=== PATIENT | female | born 1935 | race Caucasian/White ===

== ENCOUNTER 2016-08-21 14:13 | Outpatient (RCR) | payer MEDICARE ==
[~2016-08-21 14:13] MED LIST: ACET-789 PO; ARMO50TA3 PO; ASPI-875 PO; BETA1TAB PO; BPR100T PO; CEPH500C PO; CHOL2000 PO; CLCX100C PO; CLCX200C PO; DOCU100T7 PO; ESCI20TA2 PO; HYDR-3454 PO; LEVO200T6 PO; LVT.1T PO; MULT-608 PO; MULT-974 PO; NFAMINITAB PO; OXYC10TA85 PO; SIMV20TA3 PO
--- OUTSIDE RECORDS SUMMARY | 2016-08-21 14:16 | XMS REPORT | Continuity of Care Document ---
Author Author [facility] Organization [facility] Address Unknown Phone Unavailable Care Team Providers Care Director Operating Name Role Phone SHAUN NICOLAS MD PCP Insurance Providers Payer Name Policy Number Subscriber Name Relationship Wps Medicare [id number] Anat Boogie 18 Self / Same As Patient Blue Cross [facility] Supp [id number] Anat Boogie 18 Self / Same As Patient Advance Directives Directive Response Recorded Date/Time Advance Directives No 06/02/13 9:14am Health Care Power of Construction Controller No 06/02/13 9:14am Organ Donor Yes 06/02/13 9:14am Problems No known problems or medical conditions. Medications Medication Dose Route Sig Days/Qty Instructions Order Date Discontinued Date Status Bupropion HCl 100 Mg PO DAILY 12/20/09 Active Simvastatin 20 Mg PO BEDTIME 12/20/09 05/10/13 Discontinued Levothyroxine Sodium (Levothroid) 2 Each PO DAILY 12/20/09 05/19/13 Discontinued Multivitamins 1 Tab PO DAILY 12/20/09 05/25/13 Discontinued Cholecalciferol 2,000 Unit PO BEDTIME 12/20/09 Active Beta-Carotene(A) W-C & E/Zn/Cu 1 Tab PO DAILY 12/20/09 06/02/13 Discontinued Armodafinil 50 Mg PO DAILY 01/22/11 05/19/13 Discontinued Escitalopram Oxalate 1 Each PO BEDTIME 01/22/11 05/19/13 Discontinued Docusate Sodium 100 Mg PO BEDTIME 06/21/11 Active Acetaminophen With Codeine 1 - 2 Each PO EVERY 4HRS PRN 01/23/11 Discontinued Levothyroxine Sodium 200 Mcg PO DAILY 05/19/13 Active Celecoxib 100 Mg PO DAILY 05/19/13 05/19/13 Discontinued Cephalexin Monohydrate (Keflex) 500 Mg PO THREE TIMES A DAY #42 CAPSULES FILLED 05-14-13 05/19/13 Active Aspirin 81 Mg PO BEDTIME 05/19/13 05/25/13 Discontinued Celecoxib 200 Mg PO DAILY 05/19/13 05/25/13 Discontinued Social History Social History Problem Response Recorded Date/Time Alcohol Use Rarely Uses 05/18/2013 4:45pm Recreational Drug Use No 05/18/2013 4:45pm Sexually Transmitted Disease No 05/10/2013 4:59pm Hospital Discharge Instructions No hospital discharge instructions. Plan of Care No plan of care. Functional Status No functional status results. Allergies, Adverse Reactions, Alerts Allergen Type Severity Reaction Status Last Updated Sulfa (Sulfonamide Antibiotics) ([id number]) Allergy Active 05/18/13 Immunizations Name Given Type Date of Pneumonia Vaccine 05/04/13 Historical Date of Influenza Vaccine 05/04/13 Historical Tetanus Booster (TDap) Unknown Historical Vital Signs No known vital signs results. Results Test Source Date Result Interp. Ref. Range Comments Absolute Reticulocyte Count April 26, 2013 10:23am 21 10^3/uL L 22- 82 Activated Partial Thromboplast Time June 02, 2013 8:30am 30 SEC N 24- 35 Comments to Grease Refiner Operator: DS 4 Alanine Aminotransferase (ALT/SGPT) January 10, 2014 11:22am 34 U/L N 30- 65 Albumin January 10, 2014 11:22am 3.8 G/DL N 3.4-5.0 Alkaline Phosphatase January 10, 2014 11:22am 89 U/L N 50-136 Anisocytosis June 24, 2006 2:30pm Slight - MANUAL DIFF PLEASE CONSULT DR GEE TO READ Anti-Nuclear Antibody Screen June 03, 2006 10:35am <1:80 - INTERPRETIVE DATA NORMAL RANGE FOR CHILDREN AGE 0 - 12 <1:20 NORMAL RANGE FOR ADULTS AGE 13 - 150 <1:80 THE PRESENCE OF MONSTER IS KNOWN TO BE ASSOCIATED WITH NUMEROUS DISEASE STATES WHICH INCLUDE SLE, MIXED CONNECTIVE TISSUE DISEASE (MCTD), RHEUMATOID ARTHRITIS, SJOGREN'S SYNDROME AND OTHER RHEUMATOID DISEASES. LOW TITERS OF MONSTER (<1:160) HAVE BEEN REPORTED IN THE ELDERLY AND TRANSIENTLY DURING VIRAL INFECTIONS IN OTHERWISE HEALTHY INDIVIDUALS. THE ABSENCE OF MONSTER IS STRONG EVIDENCE AGAINST UNTREATED SLE. 10/11/94 Aspartate Amino Transf (AST/SGOT) January 10, 2014 11:22am 25 U/L N 15-37 BUN/Creatinine Ratio January 10, 2014 11:22am 19 - Band Neutrophils January 27, 2013 11:03am 0 % - BMBX Basophils # (Auto) January 10, 2014 11:22am 0.0 10^3/uL N 0.0-0.1 Basophils % (Manual) January 27, 2013 11:03am 1 % - BMBX Basophils (%) (Auto) January 10, 2014 11:22am 0 % N 0-10 Blood Urea Nitrogen January 10, 2014 11:22am 13 MG/DL N 7-18 C-Reactive Protein May 18, 2013 5:30pm 1.3 MG/DL H 0.2-0.9 CA 27.29 January 10, 2014 11:22am 34.9 U/ML - Calcium Level January 10, 2014 11:22am 8.9 MG/DL N 8.5-10.1 Carbon Dioxide Level January 10, 2014 11:22am 29 MMOL/L N 21-32 Chloride Level January 10, 2014 11:22am 100 MMOL/L L 101-110 Cholesterol Level January 12, 2007 11:47am 144 MG/DL N -[address] ORDER PER DR RIZO CALLED TO CHAN AT [[id number]]. RESULTS READ BACK: YES. Creatinine January 10, 2014 11:22am 0.7 MG/DL N 0.6-1.3 Direct Bilirubin June 20, 2008 1:52pm 0.1 MG/DL N 0.0-0.30 Eosinophils # (Auto) January 10, 2014 11:22am 0.0 10^3/uL N 0.0-0.3 Eosinophils % (Manual) January 27, 2013 11:03am 0 % - BMBX Eosinophils (%) (Auto) January 10, 2014 11:22am 1 % N 0-10 Erythrocyte Sedimentation Rate June 03, 2006 10:35am 3 MM/HR N 0-30 Ferritin May 20, 2013 5:50am 52 NG/ML - Comments to Grease Refiner Operator : IRON STUDY Glucose Level January 10, 2014 11:22am 193 MG/DL H 74-106 HDL Cholesterol January 12, 2007 11:47am 30 MG/DL L 35-[address] ORDER PER DR RIZO CALLED TO CHAN AT [[id number]]. RESULTS READ BACK: YES. Hematocrit January 10, 2014 11:22am 41 % N 35-52 Hemoglobin January 10, 2014 11:22am 13.4 G/DL N 11.5-16.0 Hemoglobin A1c January 12, 2007 11:47am 7.1 h % - MANUAL DIFF PER DR ORDER PER DR NICOLAS Indirect Bilirubin January 12, 2007 11:47am 0.5 MG/DL - MANUAL DIFF PER DR ORDER PER DR RIZO CALLED TO CHAN AT [[id number]]. RESULTS READ BACK: YES. Iron Level May 20, 2013 5:50am 57 UG/DL - Comments to Grease Refiner Operator: IRON STUDY LDL Cholesterol January 12, 2007 11:47am 87 MG/DL N 0-[address] ORDER PER DR RIZO CALLED TO CHAN AT [[id number]]. RESULTS READ BACK: YES. Lymphocytes # (Auto) January 10, 2014 11:22am 0.9 X 10^3 L 1.0-4.0 Lymphocytes % (Manual) January 27, 2013 11:03am 37 % - BMBX Lymphocytes (%) (Auto) January 10, 2014 11:22am 31 % N 12-44 Mean Corpuscular Hemoglobin January 10, 2014 11:22am 30 PG N 25-34 Mean Corpuscular Hemoglobin Concent January 10, 2014 11:22am 33 G/DL N 32- 36 Mean Corpuscular Volume January 10, 2014 11:22am 90 FL N 80-99 Mean Platelet Volume January 10, 2014 11:22am 10.0 FL N 7.4-10.4 Monocytes # (Auto) January 10, 2014 11:22am 0.2 X 10^3 N 0.0-1.0 Monocytes % (Manual) January 27, 2013 11:03am 11 % - BMBX Monocytes (%) (Auto) January 10, 2014 11:22am 9 % N 0-12 Neutrophils # (Auto) January 10, 2014 11:22am 1.7 X 10^3 L 1.8-7.8 Neutrophils % (Manual) January 27, 2013 11:03am 51 % - BMBX Neutrophils (%) (Auto) January 10, 2014 11:22am 60 % N 42-75 Percent Reticulocyte Count April 26, 2013 10:23am 0.50 % N 0.50- 2.40 Platelet Count January 10, 2014 11:22am 54 10^3/uL L 130-400 Potassium Level January 10, 2014 11:22am 4.2 MMOL/L N 3.6-5.0 Prothrombin Time June 02, 2013 8:30am 13.6 SEC N 12.2-14.7 Comments to Grease Refiner Operator: DS 4 RBC Morphology Bizarre Forms January 12, 2007 11:47am Normal - MANUAL DIFF PER DR ORDER PER DR NICOLAS Reactive Lymphocytes January 12, 2007 11:47am 9 % - MANUAL DIFF PER DR ORDER PER DR NICOLAS Red Blood Count January 10, 2014 11:22am 4.52 10^6/uL N 4.35-5.85 Red Cell Distribution Width January 10, 2014 11:22am 14.5 % N 10.0-14.5 Rheumatoid Factor June 03, 2006 10:35am Negative - Sodium Level January 10, 2014 11:22am 134 MMOL/L L 135-145 TSH [place] Testing June 03, 2006 10:35am 0.77 UIU/ML N 0.34-5.60 Thyroid Stimulating Hormone (TSH) March 26, 2011 2:24pm 0.05 UIU/ML L 0.34-5.60 Total Bilirubin January 10, 2014 11:22am 1.0 MG/DL N 0.0-1.0 Total Iron Binding Capacity May 20, 2013 5:50am 304 UG/DL - Comments to Grease Refiner Operator: IRON STUDY Total Protein January 10, 2014 11:22am 6.7 G/DL N 6.4-8.2 Transferrin % Saturation May 20, 2013 5:50am 19 % - Comments to Grease Refiner Operator: IRON STUDY Triglycerides Level January 12, 2007 11:47am 135 MG/DL N 30.0-150.[address] ORDER PER DR RIZO CALLED TO CHAN AT [[id number]]. RESULTS READ BACK: YES. Uric Acid June 03, 2006 10:35am 4.3 MG/DL N 2.6-7.2 VLDL Cholesterol January 12, 2007 11:47am 27 MG/DL N 5-[address] ORDER PER DR RIZO CALLED TO CHAN AT [[id number]]. RESULTS READ BACK: YES. Vitamin B12 Level June 03, 2006 10:35am 715 PG/ML - White Blood Count January 10, 2014 11:22am 2.8 10^3/uL L 4.3-11.0 Glucometer May 25, 2013 5:41am 147 MG/DL H 70-110 Estimat Glomerular Filtration Rate January 10, 2014 11:22am > 60 - GFR INTERPRETIVE DATA UNITS FOR ESTIMATED GFR (eGFR): mL/min/1.73 M2 REFERENCE RANGE FOR ESTIMATED GFR (eGFR) eGFR NORMAL eGFR >60 MODERATELY DECREASED eGFR 30-59 SEVERLY DECREASED eGFR 15-29 KIDNEY FAILURE <15 (OR DIALYSIS) Blood Morphology Comment January 27, 2013 11:03am NORMAL - BMBX INR Comment June 02, 2013 8:30am 1.1 N 0.8-1.4 INTERPRETIVE DATASUGGESTED THERAPEUTIC RANGE FOR INR'S: VENOUS THROMBOSIS, PULMONARY EMBOLISM, OR PREVENTION OF SYSTEMIC EMBOLISM (EG. IN ATRIAL FIBRILLATION): 2.0 - 3.0 MECHANICAL PROSTHETIC HEART VALVES: 2.5 - 3.5* *NOTE: INR'S UP TO 4.5 MAY BE NECESSARY IN SELECTED GROUPS OF HIGH RISK PATIENTS. [employer] CONSENSUS CONFERENCE ON ANTITHROMBOTIC THERAPY (2000). MRSA Screen Nasal January 22, 2011 11:27am MRSA not isolated Procedures No known history of procedures. Encounters Encounter Location Date/Time Registered Clinic [facility] 05/16/14 8:00pm
[2016-08-21 14:32] LABS: BASOPHILS % (AUTO) 0 % (0-10); EOSINOPHILS % (AUTO) 1 % (0-10); LYMPHOCYTES # (AUTO) 0.7 X 10^3 (1.0-4.0); LYMPHOCYTES % (AUTO) 25 % (12-44); MEAN CORPUSCULAR HEMOGLOBIN 31 PG (25-34); MEAN CORPUSCULAR HGB CONC 33 G/DL (32-36); MEAN CORPUSCULAR VOLUME 94 FL (80-99); MEAN PLATELET VOLUME 9.8 FL (7.4-10.4); MONOCYTES # (AUTO) 0.3 X 10^3 (0.0-1.0); MONOCYTES % (AUTO) 11 % (0-12); NEUTROPHILS # (AUTO) 1.6 X 10^3 (1.8-7.8); NEUTROPHILS % (AUTO) 63 % (42-75); PLATELET COUNT 53 10^3/uL (130-400); RED BLOOD COUNT 4.25 10^6/uL (4.35-5.85); RED CELL DISTRIBUTION WIDTH 14.5 % (10.0-14.5); WHITE BLOOD COUNT 2.6 10^3/uL (4.3-11.0)
[2016-08-21 14:59] LABS: ALANINE AMINOTRANSFERASE 16 U/L (0-55); ALBUMIN 4.1 G/DL (3.2-4.5); ANION GAP 10 MMOL/L (5-14); ASPARTATE AMINO TRANSFERASE 29 U/L (5-34); BILIRUBIN,TOTAL 1.2 MG/DL (0.1-1.0); BLOOD UREA NITROGEN 11 MG/DL (7-18); BUN/CREATININE RATIO 14; CALCIUM 9.2 MG/DL (8.5-10.1); CARBON DIOXIDE 28 MMOL/L (21-32); CHLORIDE 100 MMOL/L (98-107); CREATININE SERUM 0.76 MG/DL (0.60-1.30); GFR ESTIMATED > 60; GLUCOSE 253 MG/DL (70-105); SODIUM 138 MMOL/L (135-145); TOTAL PROTEIN 6.2 G/DL (6.4-8.2)
== END 2016-11-19 | disposition home or self-care (01) ==
LOC: ONC 14:13
PROVIDERS: ATTEND Internal Medicine Hematology & Oncology
DX: C44.42 Squamous cell carcinoma of skin of scalp and neck (principal); Z85.3 Personal history of malignant neoplasm of breast; D50.9 Iron deficiency anemia, unspecified; K76.6 Portal hypertension; G43.909 Migraine, unspecified, not intractable, without status migrainosus; E03.9 Hypothyroidism, unspecified; F32.9 Major depressive disorder, single episode, unspecified; D69.6 Thrombocytopenia, unspecified; G47.30 Sleep apnea, unspecified; R16.1 Splenomegaly, not elsewhere classified; E66.9 Obesity, unspecified; Z90.10 Acquired absence of unspecified breast and nipple; Z92.21 Personal history of antineoplastic chemotherapy
CPT/HCPCS: 36415; 80053; 82728; 83540; 85025; 86300; 99213

== ENCOUNTER 2016-10-03 13:11 | Outpatient (RCR) | payer MEDICARE ==
--- OUTSIDE RECORDS SUMMARY | 2016-09-03 14:15 | XMS REPORT | Continuity of Care Document ---
Author Author [facility] Organization [facility] Address Unknown Phone Unavailable Care Team Providers Care Athletic Equipment Manager Name Role Phone SHAUN NICOLAS MD PCP Insurance Providers Payer Name Policy Number Subscriber Name Relationship Wps Medicare [id number] Anat Boogie 18 Self / Same As Patient Blue Cross [facility] Supp [id number] Anat Boogie 18 Self / Same As Patient Advance Directives Directive Response Recorded Date/Time Advance Directives No 06/02/13 9:14am Health Care Power of Stringer Up Soldering Machine No 06/02/13 9:14am Organ Donor Yes 06/02/13 [...] Reaction Status Last Updated Sulfa (Sulfonamide Antibiotics) ([id number]) Allergy Active 05/18/13 Immunizations Name Given Type [...] 30 SEC N 24- 35 Comments to Cook Supervisor: DS 4 Alanine Aminotransferase (ALT/SGPT) January 10, [...] 2013 5:50am 52 NG/ML - Comments to Cook Supervisor : IRON STUDY Glucose Level January 10, [...] 2013 5:50am 57 UG/DL - Comments to Cook Supervisor: IRON STUDY LDL Cholesterol January 12, 2007 [...] 8:30am 13.6 SEC N 12.2-14.7 Comments to Cook Supervisor: DS 4 RBC Morphology Bizarre Forms January [...] 2014 11:22am 134 MMOL/L L 135-145 TSH [place] Testing June 03, 2006 10:35am 0.77 UIU/ML N 0.34-5.60 Thyroid Stimulating Hormone (TSH) March 26, 2011 2:24pm 0.05 UIU/ML L 0.34-5.60 Total Bilirubin January 10, 2014 11:22am 1.0 MG/DL N 0.0-1.0 Total Iron Binding Capacity May 20, 2013 5:50am 304 UG/DL - Comments to Cook Supervisor: IRON STUDY Total Protein January 10, 2014 11:22am 6.7 G/DL N 6.4-8.2 Transferrin % Saturation May 20, 2013 5:50am 19 % - Comments to Cook Supervisor: IRON STUDY Triglycerides Level January 12, 2007 [...] SELECTED GROUPS OF HIGH RISK PATIENTS. [employer] [employer] CONSENSUS CONFERENCE ON ANTITHROMBOTIC THERAPY (2000). MRSA Screen Nasal January 22, 2011 11:27am MRSA not isolated Procedures No known history of procedures. Encounters Encounter Location Date/Time Registered Clinic [facility] 05/16/14 8:00pm
== END 2016-10-21 10:50 | disposition home or self-care (01) ==
PROVIDERS: ATTEND Nurse Practitioner
DX: M17.12 Unilateral primary osteoarthritis, left knee (principal)

== ENCOUNTER 2017-01-15 13:49 | Outpatient (RCR) | payer MEDICARE ==
[2017-01-15 14:14] LABS: BASOPHILS % (AUTO) 0 % (0-10); EOSINOPHILS % (AUTO) 1 % (0-10); LYMPHOCYTES # (AUTO) 0.7 X 10^3 (1.0-4.0); LYMPHOCYTES % (AUTO) 25 % (12-44); MEAN CORPUSCULAR HEMOGLOBIN 30 PG (25-34); MEAN CORPUSCULAR HGB CONC 33 G/DL (32-36); MEAN CORPUSCULAR VOLUME 94 FL (80-99); MEAN PLATELET VOLUME 10.1 FL (7.4-10.4); MONOCYTES # (AUTO) 0.3 X 10^3 (0.0-1.0); MONOCYTES % (AUTO) 10 % (0-12); NEUTROPHILS # (AUTO) 1.6 X 10^3 (1.8-7.8); NEUTROPHILS % (AUTO) 64 % (42-75); PLATELET COUNT 51 10^3/uL (130-400); RED BLOOD COUNT 4.27 10^6/uL (4.35-5.85); RED CELL DISTRIBUTION WIDTH 14.4 % (10.0-14.5); WHITE BLOOD COUNT 2.6 10^3/uL (4.3-11.0)
[2017-01-15 14:34] LABS: ALANINE AMINOTRANSFERASE 16 U/L (0-55); ANION GAP 11 MMOL/L (5-14); ASPARTATE AMINO TRANSFERASE 31 U/L (5-34); BILIRUBIN,TOTAL 1.4 MG/DL (0.1-1.0); BLOOD UREA NITROGEN 11 MG/DL (7-18); BUN/CREATININE RATIO 14 (0-20); CALCIUM 9.8 MG/DL (8.5-10.1); CARBON DIOXIDE 27 MMOL/L (21-32); CHLORIDE 99 MMOL/L (98-107); CREATININE SERUM 0.77 MG/DL (0.60-1.30); GFR ESTIMATED > 60; GLUCOSE 259 MG/DL (70-105); HEMOLYSIS 8 (0-29); LIPEMIA -3 (0-49); POTASSIUM 4.3 MMOL/L (3.6-5.0); SODIUM 137 MMOL/L (135-145); TOTAL PROTEIN 6.5 GM/DL (6.4-8.2)
== END 2017-04-15 | disposition home or self-care (01) ==
LOC: ONC 13:49
PROVIDERS: ATTEND Internal Medicine Hematology & Oncology
DX: C44.42 Squamous cell carcinoma of skin of scalp and neck (principal); Z85.3 Personal history of malignant neoplasm of breast; D50.9 Iron deficiency anemia, unspecified; K76.6 Portal hypertension; G43.909 Migraine, unspecified, not intractable, without status migrainosus; E03.9 Hypothyroidism, unspecified; F32.9 Major depressive disorder, single episode, unspecified; D69.6 Thrombocytopenia, unspecified; G47.30 Sleep apnea, unspecified; R16.1 Splenomegaly, not elsewhere classified; E66.9 Obesity, unspecified; Z90.10 Acquired absence of unspecified breast and nipple; Z92.21 Personal history of antineoplastic chemotherapy
CPT/HCPCS: 36415; 80053; 85025; 86300; 99213

== ENCOUNTER → 2017-01-28 | Outpatient (CLI) | payer MEDICARE ==
--- NOTE | 2017-01-29 19:26 | Diagnostic Imaging Report ---
Right breast diagnostic mammogram. INDICATION: Screening. The patient has history of left breast mastectomy in 1994 for breast cancer. COMPARISON: 01/26/16. The current study was also evaluated with a Computer Aided Detection (CAD) system. FINDINGS: The right breast demonstrates heterogeneously dense parenchyma which may decrease mammographic sensitivity. There are extensive benign-appearing calcifications seen. Allowing for technique and positional differences, no suspicious change is seen. IMPRESSION: Dense right breast parenchyma with no definite change. ACR BI-RADS Category 2: Benign findings. Result letter will be mailed to the patient. Note: At least 10% of breast cancer is not imaged by mammography. Dictated by: Dictated on workstation # [id number]
== END ==
LOC: RAD 13:11
PROVIDERS: ATTEND Internal Medicine Hematology & Oncology
DX: Z12.31 Encounter for screening mammogram for malignant neoplasm of breast (principal)

== ENCOUNTER → 2017-05-06 | Outpatient (CLI) | payer MEDICARE ==
[~2017-05-06] MED LIST changes: +CATHETER FLUSH 10 ML SYR IV PRN; +REGADENOSON 0.4 MG/5 ML SYR (LEXISCAN) IV ONE
[2017-05-06 13:18] VITALS: BP 141/82
== END ==
LOC: RAD 11:28
PROVIDERS: ATTEND Internal Medicine Cardiovascular Disease
DX: R01.2 Other cardiac sounds (principal); R00.1 Bradycardia, unspecified; K74.69 Other cirrhosis of liver
CPT/HCPCS: 78452; 93017

== ENCOUNTER → 2017-05-16 | Outpatient (CLI) | payer MEDICARE ==
[~2017-05-16] MED LIST changes: -CATHETER FLUSH 10 ML SYR IV PRN; -REGADENOSON 0.4 MG/5 ML SYR (LEXISCAN) IV ONE
== END ==
LOC: CARD 12:38
PROVIDERS: ATTEND Internal Medicine Cardiovascular Disease
DX: K74.69 Other cirrhosis of liver (principal); R00.1 Bradycardia, unspecified; R01.2 Other cardiac sounds
CPT/HCPCS: 93306

== ENCOUNTER → 2017-05-20 | Outpatient (CLI) | payer MEDICARE | LOC: CARD 14:00 | PROVIDERS: ATTEND Internal Medicine Cardiovascular Disease | DX: R01.2 Other cardiac sounds (principal); R00.1 Bradycardia, unspecified; K74.69 Other cirrhosis of liver | CPT/HCPCS: 93225; 93226 ==

== ENCOUNTER 2017-06-03 11:02 | Day surgery (SDC) | payer MEDICARE ==
[2017-06-03] VITALS (11 sets, daily range): BP systolic 102–147; BP diastolic 54–81
[~2017-06-03] VITALS: Ht 154.9 cm; Wt 63.0 kg
[2017-06-03] MEDS ORDERED: HEParin 1000 UNIT/ML (10ML VIAL) FOR BOLUS ONE (11:05)
[2017-06-03] MEDS ORDERED: NS IV 1000 ML 3,000 ML ONE (11:05)
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
[2017-06-03 11:44] LABS: MEAN PLATELET VOLUME 11.5 FL (7.4-10.4); RED BLOOD COUNT 4.6 10^6/uL (4.35-5.85); RED CELL DISTRIBUTION WIDTH 14.8 % (10.0-14.5); WHITE BLOOD COUNT 3.4 10^3/uL (4.3-11.0)
[2017-06-03] MEDS ORDERED: NS IV 1000 ML 1,000 ML IV SCH ×2 (11:45→13:46)
[2017-06-03 11:53] LABS: INR 1.2 (0.8-1.4); PROTHROMBIN TIME PATIENT 15.1 SEC (12.2-14.7)
[2017-06-03 12:02] LABS: ALANINE AMINOTRANSFERASE 24 U/L (0-55); ALBUMIN 4.3 GM/DL (3.2-4.5); ANION GAP 9 MMOL/L (5-14); ASPARTATE AMINO TRANSFERASE 39 U/L (5-34); BILIRUBIN,TOTAL 1.7 MG/DL (0.1-1.0); BLOOD UREA NITROGEN 14 MG/DL (7-18); BUN/CREATININE RATIO 20; CALCIUM 9.4 MG/DL (8.5-10.1); CARBON DIOXIDE 29 MMOL/L (21-32); CHLORIDE 102 MMOL/L (98-107); CHOLESTEROL 142 MG/DL (< 200); DIRECT LDL 97 MG/DL (1-129); GFR ESTIMATED > 60; GLUCOSE 136 MG/DL (70-105); POTASSIUM 4.1 MMOL/L (3.6-5.0); SODIUM 140 MMOL/L (135-145); TOTAL PROTEIN 6.8 GM/DL (6.4-8.2); TRIGLYCERIDES 69 MG/DL (<150); VLDL CHOLESTEROL 14 MG/DL (5-40)
[2017-06-03] MEDS ORDERED: CHOL20003 PO (12:24)
[2017-06-03] MEDS ORDERED: DOCU100C37 PO (12:24)
[2017-06-03] MEDS ORDERED: VIT1CAPS5 PO (12:24)
[2017-06-03] MEDS ORDERED: L.AC1CAP6 PO (12:24)
[2017-06-03] MEDS ORDERED: NADO20TA PO (12:24)
[2017-06-03] MEDS ORDERED: OXYC10TA7 PO (12:24)
[2017-06-03] MEDS ORDERED: SPIR50TA2 PO (12:24)
[2017-06-03] MEDS ORDERED: MINO50TA9 PO (12:24)
[2017-06-03] MEDS ORDERED: LEVO200T6 PO (12:24)
[2017-06-03] MEDS ORDERED: diphenhydrAMINE 50 MG/ML INJ (BENADRYL) ONE (12:41)
[2017-06-03] MEDS ORDERED: fentaNYL INJECTION 100 MCG/2 ML AMP ONE (12:41)
[2017-06-03] MEDS ORDERED: MIDAZOLAM 5 MG/5 ML (VERSED) VIAL ONE (12:41)
--- NOTE | 2017-06-03 13:46 | Cardiac Procedure Note-CS/ASA ---
Pre-Procedure Note Pre-Op Procedure Note H&P Reviewed The H&P was reviewed, patient examined and no changes noted. Date H&P Reviewed: Jun 03, 2017 Time H&P Reviewed: 13:10 Conscious Sedation Pre-Proced Time Reviewed: 13:10 ASA Class: 3 Airway Mallampati Classification: (hopi appropriate class) I. II. III, IV Lungs Heart ASA score ASA 1: a normal healthy patient ASA 2: a patient with a mild systemic disease (mid diabetes, controlled hypertension, obesity ASA 3: a patient with a severe systemic disease that limits activity (angina , COPD, prior Myocardial infarction) ASA 4: a patient with an incapacitating disease that is a constant threat to life (CHF, renal failure) ASA 5: a moribund patient not expected to survive 24 hrs. (ruptured aneurysm) ASA 6: a declared brain patient whose organs are being harvested. For emergent operations, add the letter E after the classification Grade 2 Sedation Plan: Analgesia, Amnesia, Plan communicated to team members, Discussed options with patient/fam, Discussed risks with patient/fam Note The patient is an appropriate candidate to undergo the planned procedure, sedation, and anesthesia. The patient immediately re-assessed prior to indication. JAMIN MODI MD FACP FAC CCDS Jun 03, 2017 13:45
--- NOTE | 2017-06-03 13:49 | Discharge Inst-Post CATH ---
Discharge Inst-CATH Post Cardiac Cath D/C Inst Follow Up/Plan F/u with Dr Wilks in 1-2 weeks CARDIAC CATH DISCHARGE INSTRUCTIONS *Hold Metformin for 48 hours post heart cath. ACTIVITY * Go Home directly and rest. * Limit activity of the leg (or wrist if it was used) for 7 days including aerobics, swimming, jogging, bicycling, etc. * Restrict stair-climbing for 7 days if possible, if not, climb up with your non -cath leg, then bring together on the same step. * Avoid lifting, pushing, pulling or excessive movement of the affected extremity for 7 days. * Customary sexual activity may be resumed after 2 days-use caution not to use a position that strains or causes pain to the affected extremity. * No driving for 24 hours. * NO SMOKING. * Avoid straining for bowel movements for 7 days. * Gentle walking on level ground is allowed. * Returning to work will depend on the type of procedure and the results. Your doctor will discuss this with you. CALL YOUR DOCTOR FOR ANY OF THE FOLLOWING: *If bleeding from the puncture site occurs- Apply gentle pressure to site with clean cloth and call your doctor or EMS. * If a knot or lump forms under the skin, increases in size, or causes pain. * If bruising appears to be worsening or moving further down your leg instead of disappearing. * Temperature above 101 F. CARE OF YOUR GROIN INCISION; * Bruising or purple discoloration of the skin near the puncture site is common. * You may shower only, no bathtub bathing for 5 days. Be careful to avoid slipping as your leg may feel stiff. * If a closure device was used on your femoral artery, please see the attached guide regarding care of the device and your leg. * REMOVE the dressing from your groin the next day after your procedure in the shower. CARE OF YOUR WRIST INCISION; * Bruising or purple discoloration of the skin near the puncture site is common. * You may shower. * DO NOT submerge wrist. * Remove dressing in 24 hours. JAMIN WILKS MD [facility] CCDS Jun 03, 2017 13:49
--- NOTE | 2017-06-03 13:50 | Discharge Inst-Cardiology ---
Discharge Inst-Cardiac Discharge Medications Continued Medications: Cholecalciferol (Vitamin D3) (Vitamin D3) 2,000 Unit Capsule 2000 UNIT PO HS, CAP Docusate Sodium (Docusate Sodium) 100 Mg Capsule 100 MG PO HS, CAP L.acidoph & Paracasei,B.lactis (Probiotic) 1 Each Capsule 1 CAP PO HS, CAP Levothyroxine Sodium (Levothyroxine Sodium) 200 Mcg Tablet 200 MCG PO DAILY, TAB Minocycline HCl (Minocycline HCl) 50 Mg Tablet 50 MG PO TuFr, TAB Nadolol (Nadolol) 20 Mg Tablet 10 MG PO DAILY, TAB TAKES 1/2 (20MG) TABLET Oxycodone HCl (Oxycodone HCl) 10 Mg Tablet 10 MG PO BID, TAB Spironolactone (Spironolactone) 50 Mg Tablet 50 MG PO DAILY, TAB Vit A/C/E/Zinc/Co (Preservision Areds Softgel) 1 Cap Capsule 1 CAP PO BID, CAP JAMIN MODI MD FACP [facility] CCDS Jun 03, 2017 13:49
[2017-06-03] MEDS ORDERED: PATIENT MAY USE OWN MEDS, ALL PO SCH (14:00)
--- NOTE | 2017-06-03 22:18 | CARDIAC CATHETERIZATION ---
DATE OF SERVICE: 06/03/2017 The patient is an 81-year-old lady who was recently found to have a 13 beat run of wide complex tachycardia on Holter monitor study. She has coronary artery disease risk factors. Cardiac catheterization was carried out today after having obtained an informed consent. DESCRIPTION OF PROCEDURE: She was brought to the cardiac catheterization laboratory in a fasting state. Right groin was prepared and draped in the usual sterile fashion. A 1% lidocaine was used for local anesthesia. Modified Seldinger technique was used to advance a 5-Korean sheath in the right femoral artery. A 5-Korean JL4 catheter was used for left coronary angiography, 5-Korean JR4 catheter was used for right coronary angiography. A 5-Korean pigtail catheter was used for left heart catheterization and left ventricular angiography. At the end of the procedure, angiography of the right femoral artery was carried out through the sheath and Mynx was used to achieve hemostasis. She tolerated the procedure well. HEMODYNAMICS: Left ventricular end-diastolic pressure following coronary angiography was 10 mmHg. There was no significant pressure gradient on pullback across the aortic valve. Ascending aortic pressure was 101/48, with a mean of 69 mmHg. LEFT VENTRICULAR ANGIOGRAPHY: Left ventricular angiography was carried out in the right anterior oblique projection. Global left ventricular systolic function is normal to hyperdynamic. Left ventricular ejection fraction is approximately 70%. There is no significant mitral regurgitation. During left ventricular angiography, we were able to visualize the ascending aorta and the aortic arch. There is moderate calcification of the aortic arch and the ascending aorta. CORONARY ANGIOGRAPHY: Diffuse coronary calcification is present. Left main coronary artery does not exhibit significant obstructive disease. Left anterior descending artery has multiple, up to 30% stenoses. Left circumflex artery has mild plaque. Right coronary artery is dominant and has diffuse [id number] plaque including approximately 30% ostial stenosis. CONCLUSIONS: 1. Coronary artery disease, [id number], nonobstructive. 2. Normal to hyperdynamic left ventricular systolic function with an ejection fraction of approximately 70%. 3. Normal left ventricular end-diastolic pressure. 4. No significant mitral regurgitation. 5. Calcification is seen within the aortic arch and the ascending aorta. DISCUSSION AND RECOMMENDATIONS: Based on the results of the study, it appears appropriate to continue a conservative approach. Outpatient followup is advised. Job ID: [id number] DocumentID: [id number] Dictated Date: 06/03/2017 13:42:02 Financial Planning Adviser Date: 06/03/2017 20:01:15 Dictated By: JAMIN MODI MD, MA, FACP, FACC, MTDD
== END 2017-06-03 15:25 | disposition home or self-care (01) ==
LOC: CATH 11:02 → SURG 13:59 → CATH 15:25
PROVIDERS: ATTEND Internal Medicine Cardiovascular Disease
DX: I25.10 Atherosclerotic heart disease of native coronary artery without angina pectoris (principal); I70.0 Atherosclerosis of aorta; K76.9 Liver disease, unspecified; E03.9 Hypothyroidism, unspecified; E66.9 Obesity, unspecified; D69.6 Thrombocytopenia, unspecified; K74.60 Unspecified cirrhosis of liver; G43.909 Migraine, unspecified, not intractable, without status migrainosus; G47.33 Obstructive sleep apnea (adult) (pediatric); Z85.3 Personal history of malignant neoplasm of breast; Z87.891 Personal history of nicotine dependence; Z79.899 Other long term (current) drug therapy
CPT/HCPCS: 36415; 36430; 80053; 80061; 85027; 85610; 85730; 87081; 93458

== ENCOUNTER 2017-07-16 13:07 | Outpatient (RCR) | payer MEDICARE ==
[~2017-07-16 13:07] MED LIST changes: +CHOL20003 PO; +DOCU100C37 PO; +L.AC1CAP6 PO; +MINO50TA9 PO; +NADO20TA PO; +OXYC10TA7 PO; +SPIR50TA2 PO; +VIT1CAPS5 PO
[2017-07-16 13:23] LABS: BASOPHILS % (AUTO) 0 % (0-10); EOSINOPHILS % (AUTO) 1 % (0-10); HEMATOCRIT 39 % (35-52); LYMPHOCYTES # (AUTO) 0.8 X 10^3 (1.0-4.0); LYMPHOCYTES % (AUTO) 35 % (12-44); MEAN CORPUSCULAR HEMOGLOBIN 31 PG (25-34); MEAN CORPUSCULAR HGB CONC 33 G/DL (32-36); MEAN CORPUSCULAR VOLUME 94 FL (80-99); MEAN PLATELET VOLUME 10.8 FL (7.4-10.4); MONOCYTES # (AUTO) 0.2 X 10^3 (0.0-1.0); MONOCYTES % (AUTO) 9 % (0-12); NEUTROPHILS # (AUTO) 1.2 X 10^3 (1.8-7.8); NEUTROPHILS % (AUTO) 55 % (42-75); PLATELET COUNT 45 10^3/uL (130-400); RED CELL DISTRIBUTION WIDTH 14.1 % (10.0-14.5); WHITE BLOOD COUNT 2.2 10^3/uL (4.3-11.0)
[2017-07-16 13:52] LABS: ALANINE AMINOTRANSFERASE 18 U/L (0-55); ALKALINE PHOSPHATASE 78 U/L (40-136); BILIRUBIN,TOTAL 1.3 MG/DL (0.1-1.0); BUN/CREATININE RATIO 15; CALCIUM 9.2 MG/DL (8.5-10.1); CARBON DIOXIDE 30 MMOL/L (21-32); CHLORIDE 99 MMOL/L (98-107); CREATININE SERUM 0.68 MG/DL (0.60-1.30); GFR ESTIMATED > 60; GLUCOSE 194 MG/DL (70-105); POTASSIUM 4.2 MMOL/L (3.6-5.0); SODIUM 135 MMOL/L (135-145); TOTAL PROTEIN 6.2 GM/DL (6.4-8.2)
== END 2017-10-14 | disposition home or self-care (01) ==
LOC: ONC 13:07
PROVIDERS: ATTEND Internal Medicine Hematology & Oncology
DX: C44.42 Squamous cell carcinoma of skin of scalp and neck (principal); Z85.3 Personal history of malignant neoplasm of breast; D50.9 Iron deficiency anemia, unspecified; K76.6 Portal hypertension; G43.909 Migraine, unspecified, not intractable, without status migrainosus; E03.9 Hypothyroidism, unspecified; F32.9 Major depressive disorder, single episode, unspecified; D69.6 Thrombocytopenia, unspecified; G47.30 Sleep apnea, unspecified; R16.1 Splenomegaly, not elsewhere classified; E66.9 Obesity, unspecified; Z90.10 Acquired absence of unspecified breast and nipple; Z92.21 Personal history of antineoplastic chemotherapy
CPT/HCPCS: 36415; 80053; 85025; 99213

== ENCOUNTER 2017-10-30 18:14 | Emergency (ER) | payer MEDICARE ==
[~2017-10-30] VITALS: Ht 157.5 cm; Wt 63.0 kg
--- NOTE | 2017-10-30 18:24 | ED Fall/Injury ---
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 She says she is not on blood thinners and she did not lose consciousness. 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 She says she is not having any nausea or dizziness preceding the fall and her members everything very well however she has not tinge of nausea which she rates as a 2 out of 10 but does not want anything for pain right now. She most recently was worked up by Dr. Moss because she had a heart rate in the 50s and he did extensive testing and made no changes to her medications. She also has chronic leg edema for many years which most recently Dr. Barron put her on Keflex, potassium and Lasix for 3 days. She is sometimes functionally incontinent and wearing adult briefs. she denies any dysuria, fevers, chills, weakness. She is not having any blurred or double vision. EMS reports that when they arrived she had a large pumping arterial wound on her right scalp. They placed an abdominal pad and obtained hemostasis with direct pressure. Patient states that because of her low platelets for many years she had a hard time healing a wound on the top of her head that Dr. Starkey cut a skin cancer off and ended up having to have a skin graft but it has been stable ever since even though it is never completely healed correctly. Allergies and Home Medications Allergies Coded Allergies: Sulfa (Sulfonamide Antibiotics) (Verified Allergy, 05/18/13) Home Medications Cholecalciferol (Vitamin D3) 2,000 Unit Capsule, 2,000 UNIT PO HS, (Reported) Docusate Sodium 100 Mg Capsule, 100 MG PO HS, (Reported) L.acidoph & Paracasei,B.lactis 1 Each Capsule, 1 CAP PO HS, (Reported) Levothyroxine Sodium 200 Mcg Tablet, 200 MCG PO DAILY, (Reported) Minocycline HCl 50 Mg Tablet, 50 MG PO TuFr, (Reported) Nadolol 20 Mg Tablet, 10 MG PO DAILY, (Reported) TAKES 1/2 (20MG) TABLET Oxycodone HCl 10 Mg Tablet, 10 MG PO BID, (Reported) Spironolactone 50 Mg Tablet, 50 MG PO DAILY, (Reported) Vit A/C/E/Zinc/Co 1 Cap Capsule, 1 CAP PO BID, (Reported) Patient Home Medication List Home Medication List Reviewed: Yes Constitutional: No chills, No fever, No malaise Eyes: Denies Blindness, Denies Blurred Vision, Denies Drainage Ears, Nose, Mouth, Throat: denies ear pain, denies ear discharge Respiratory: No cough, No short of breath Cardiovascular: No chest pain, edema, No Hx of Intervention, No palpitations Gastrointestinal: No abdominal pain, No constipation, No diarrhea, No dysphagia Genitourinary: No discharge, No dysuria, incontinence (fxn) Skin: see HPI Past Vnuljkc-Gckugm-Qawtua Hx Patient Social History Alcohol Use: Denies Use Recreational Drug Use: No Smoking Status: Former Smoker Type Used: Cigarettes Former Smoker, Quit: Jun 03, 1990 Immunizations Up To Date Tetanus Booster (TDap): Unknown Date of Pneumonia Vaccine: Jul 11, 2014 Date of Influenza Vaccine: Apr 08, 2017 Respiratory Respiratory Disorders: Sleep Apnea Reproductive System Hx Reproductive Disorders: No Sexually Transmitted Disease: No Gastrointestinal Gastrointestinal Disorders: Liver Disease/Jaundice, Cirrhosis Musculoskeletal Musculoskeletal Disorders: Arthritis Endocrine Endocrine Disorders: Hypothyroidsim HEENT HEENT Disorders: Cataract Cancer Cancer: Breast Psychosocial Behavioral Health Disorders: Depression Integumentary Skin/Integumentary Disorders: Recent Skin Changes Family Medical History Significant Family History: No Pertinent Family Hx Physical Exam Vital Signs Vital Signs - First Documented 10/30/17 18:14 Temp 99.6 Pulse 72 Resp 18 B/P (MAP) 176/99 (124) Pulse Ox 98 O2 Delivery Room Air Capillary Refill : General Appearance: WD/WN, no apparent distress HEENT: PERRL/EOMI, TMs normal, pharynx normal, other (Dentures. She has a large hematoma with a small superficial laceration that is hemostatic without pressure over her lateral right eye. No Glez sign or raccoon eyes. She has an old, shaved keratotic lesion on the top of her head that is nonerythematous) Neck: non-tender, full range of motion, supple, normal inspection Cardiovascular: normal peripheral pulses, regular rate, rhythm, other ( Bilateral pedal edema up to her thighs 2+, chronic lymphedema) Respiratory: chest non-tender, lungs clear, normal breath sounds, no respiratory distress, no accessory muscle use Peripheral Pulses: 2+ Radial Pulses (R), 2+ Radial Pulses (L) Gastrointestinal: normal bowel sounds, non tender, soft Extremities: normal inspection, normal capillary refill, pedal edema (2+ bilateral upper thigh without erythema) Neurologic/Psychiatric: drainlayer II-XII nml as tested, no motor/sensory deficits, alert, normal mood/affect, oriented x 3 Skin: normal color, warm/dry, other (Small linear superficial less than 1 cm abrasion/laceration above the right eye laterally on top of the hematoma) [place] Coma Score Best Eye Response: (4) Open Spontaneously Best Verbal Response: (5) Oriented Best Motor Response: (6) Obeys Commands Camilla Total: 15 Progress/Results/Core Measures Results/Orders Lab Results Laboratory Tests Test 10/30/17 18:54 10/30/17 19:20 Range/Units Urine Color YELLOW Urine Clarity CLEAR Urine pH 8 5-9 Urine Specific [place] 1.010 L 1.016-1.022 Urine Protein NEGATIVE NEGATIVE Urine Glucose (UA) NEGATIVE NEGATIVE Urine Ketones NEGATIVE NEGATIVE Urine Nitrite NEGATIVE NEGATIVE Urine Bilirubin NEGATIVE NEGATIVE Urine Urobilinogen NORMAL NORMAL MG/DL Urine Leukocyte Esterase NEGATIVE NEGATIVE Urine RBC (Auto) NEGATIVE NEGATIVE Urine RBC RARE /HPF Urine WBC RARE /HPF Urine Crystals NONE /LPF Urine Bacteria NEGATIVE /HPF Urine Casts NONE /LPF Urine Mucus NEGATIVE /LPF Urine Culture Indicated NO White Blood Count 3.3 L 4.3-11.0 10^3/uL Red Blood Count 4.21 L 4.35-5.85 10^6/uL Hemoglobin 13.3 11.5-16.0 G/DL Hematocrit 39 35-52 % Mean Corpuscular Volume 93 80-99 FL Mean Corpuscular Hemoglobin 32 25-34 PG Mean Corpuscular Hemoglobin Concent 34 32-36 G/DL Red Cell Distribution Width 14.4 10.0-14.5 % Platelet Count 46 L 130-400 10^3/uL Mean Platelet Volume 11.4 H 7.4-10.4 FL Neutrophils (%) (Auto) 63 42-75 % Lymphocytes (%) (Auto) 26 12-44 % Monocytes (%) (Auto) 10 0-12 % Eosinophils (%) (Auto) 1 0-10 % Basophils (%) (Auto) 0 0-10 % Neutrophils # (Auto) 2.1 1.8-7.8 X 10^3 Lymphocytes # (Auto) 0.9 L 1.0-4.0 X 10^3 Monocytes # (Auto) 0.3 0.0-1.0 X 10^3 Eosinophils # (Auto) 0.0 0.0-0.3 10^3/uL Basophils # (Auto) 0.0 0.0-0.1 10^3/uL Prothrombin Time 16.4 H 12.2-14.7 SEC INR Comment 1.3 0.8-1.4 Activated Partial Thromboplast Time 35 24-35 SEC Sodium Level 135 135-145 MMOL/L Potassium Level 4.2 3.6-5.0 MMOL/L Chloride Level 98 98-107 MMOL/L Carbon Dioxide Level 29 21-32 MMOL/L Anion Gap 8 5-14 MMOL/L Blood Urea Nitrogen 10 7-18 MG/DL Creatinine 0.59 L 0.60-1.30 MG/DL Estimat Glomerular Filtration Rate > 60 BUN/Creatinine Ratio 17 Glucose Level 123 H 70-105 MG/DL Calcium Level 9.1 8.5-10.1 MG/DL Magnesium Level 1.4 L 1.8-2.4 MG/DL Total Bilirubin 1.6 H 0.1-1.0 MG/DL Aspartate Amino Transf (AST/SGOT) 40 H 5-34 U/L Alanine Aminotransferase (ALT/SGPT) 24 0-55 U/L Alkaline Phosphatase 90 40-136 U/L Troponin I < 0.30 <0.30 NG/ML Total Protein 6.1 L 6.4-8.2 GM/DL Albumin 4.1 3.2-4.5 GM/DL My Orders Orders - ARAMIS RIVERA Ct Head/Cervical Spine Wo (10/30/17 18:16) Cbc With Automated Diff (10/30/17 18:16) Comprehensive Metabolic Panel (10/30/17 18:16) Magnesium (10/30/17 18:16) Protime With Inr (10/30/17 18:16) Partial Thromboplastin Time (10/30/17 18:16) Troponin I (3/29/18 18:16) Ua Culture If Indicated (10/30/17 18:16) Ondansetron Injection (Zofran Injectio (10/30/17 18:30) Ekg Tracing (10/30/17 18:16) Continuous Ekg Monitoring (10/30/17 18:16) Vital Signs/I&O Vital Sign - Last 12Hours 10/30/17 18:14 Temp 99.6 Pulse 72 Resp 18 B/P (MAP) 176/99 (124) Pulse Ox 98 O2 Delivery Room Air Progress Note #1: Time: 18:25 Progress Note Oriented do a CT scan of her head and neck as well as obtain an EKG and troponin based on her history of bradycardia. We'll also check a urinalysis possible UTI given her history of incontinence. Finally CBC look at her hemoglobin and platelets. PT INR and a PTT looking for further reason why she might have heavy bleeding however she is currently hemostatic. Dr. Wilks cardiac catheterization May 2017: Normal to hyperdynamic left ventricular systolic function with an EF of 70%. Normal left ventricular end-diastolic pressure. No significant mitral regurgitation. Calcifications seen in the aortic arch and ascending aorta. Progress Note #2: Time: 18:57 Progress Note Nurse relates that the patient has been given starting some short-term memory loss as then she was told by a friend who is visiting her but the police came in and told him what happened so he came to see her and shortly after telling a story she asked the friend how was again that he heard she was in the ER. Unknown if there is a baseline level of dementia versus intracranial pathology. ECG Initial ECG Impression Date: Oct 30, 2017 Initial ECG Impression Time: 19:06 Initial ECG Rate: 78 Initial ECG Rhythm: Normal Sinus Initial ECG Intervals: Normal Initial ECG Impression: Normal Comment No St seg elevation or depression. No Bradycardia. Diagnostic Imaging Diagonstic Imaging: CT Plain Films/CT/US/NM/MRI: c-spine, head Comments NAME: DEV MADLONADO [facility] REC#: [id number] PHYSICIAN: ARAMIS RIVERA MD CC: CAROLINA SPARKS MD; ARAMIS RIVERA Page 2 of 2 RADIOLOGY REPORT VIA [facility]. [place], [place] CC: CAROLINA SPARKS MD; ARAMIS RIVERA Page 1 of 2 RADIOLOGY REPORT NAME: DEV MALDONADO [facility] REC#: [id number] PT STATUS: REG ER : 1935 PHYSICIAN: ARAMIS RIVERA MD ADMIT DATE: 10/30/17/ER Signed Date of Exam: 10/30/17 CT HEAD/CERVICAL SPINE WO PROCEDURE: CT head and CT cervical spine without contrast. TECHNIQUE: Multiple contiguous axial images were obtained through the brain and cervical spine without the use of intravenous contrast. Sagittal and coronal reformations through the cervical spine were then performed. INDICATION: Head and neck pain after a fall. FINDINGS: There is prominence of the ventricles and sulci. There is some chronic microvascular ischemic disease. There is no hydrocephalus. There is no midline shift. There is no intracranial mass, hemorrhage or extra-axial fluid collection. Calvarium is intact. There is a right frontal scalp hematoma. The sinuses and mastoid air cells are clear. There is straightening of the normal cervical lordosis. The vertebral body heights are well-maintained. There is no fracture or traumatic subluxation. There is multilevel degenerative disc disease with some posterior facet arthropathy. The lung apices are clear. The prevertebral soft tissues are within normal limits. IMPRESSION: Right frontal scalp hematoma. Atrophy and some chronic microvascular ischemic disease, however, no acute intracranial abnormality. Moderate cervical spondylosis and multilevel degenerative disc disease without acute fracture or traumatic subluxation Dictated by: Dictated on workstation # [id number] Dict: 10/30/171949 Trans: 10/30/171958 Interpreted by: CAROLINA SPARKS MD Electronically signed by: CAROLINA SPARKS MD 10/30/171958 Reviewed: Reviewed by Me Departure Impression Impression: Primary Impression: Fall Qualified Codes: W19.XXXA - Unspecified fall, initial encounter Additional Impressions: Traumatic hematoma of scalp Qualified Codes: S00.03XA - Contusion of scalp, initial encounter Cellulitis Qualified Codes: L03.119 - Cellulitis of unspecified part of limb Disposition: 01 HOME, SELF-CARE Condition: Stable Departure-Patient Inst. Decision time for Depature: 22:26 Referrals: CHRISTOPHER BARRON MD (PCP/Family) Primary Care Physician Patient Instructions: Preventing Falls in the Older Adult Add. Discharge Instructions: You may continue taking the medications for your cellulitis as prescribed by Dr. Barron. Use an ice pack for 20 minutes at every 4 hours on your head and forearm if you have swelling or pain for the first 2 or 3 days. You can also use Tylenol 1000 mg every 8 hours as needed for pain. Copy Copies To 1: CHRISTOPHER BARRON MD, TITUS J Oct 30, 2017 18:24
[2017-10-30] MEDS ORDERED: ONDANSETRON 4 MG/2 ML (SDV) Z0FRAN IVP ONE (18:30)
[2017-10-30 19:10] LABS: BILIRUBIN,URINE NEGATIVE (NEGATIVE); CLARITY,URINE CLEAR; GLUCOSE, URINE (UA) NEGATIVE (NEGATIVE); KETONES,URINE NEGATIVE (NEGATIVE); LEUKOCYTE ESTERASE ,URINE NEGATIVE (NEGATIVE); NITRITE,URINE NEGATIVE (NEGATIVE); PH,URINE 8 (5-9); PROTEIN,URINE NEGATIVE (NEGATIVE); UROBILINOGEN,URINE NORMAL (NORMAL)
[2017-10-30 19:12] LABS: COLOR,URINE YELLOW
[2017-10-30 19:13] LABS: BACTERIA,URINE NEGATIVE /HPF; RBC,URINE RARE /HPF; WBC,URINE RARE /HPF
[2017-10-30 19:27] LABS: BASOPHILS % (AUTO) 0 % (0-10); EOSINOPHILS % (AUTO) 1 % (0-10); HEMATOCRIT 39 % (35-52); HEMOGLOBIN 13.3 G/DL (11.5-16.0); LYMPHOCYTES # (AUTO) 0.9 X 10^3 (1.0-4.0); LYMPHOCYTES % (AUTO) 26 % (12-44); MEAN CORPUSCULAR HEMOGLOBIN 32 PG (25-34); MEAN CORPUSCULAR HGB CONC 34 G/DL (32-36); MEAN CORPUSCULAR VOLUME 93 FL (80-99); MEAN PLATELET VOLUME 11.4 FL (7.4-10.4); MONOCYTES # (AUTO) 0.3 X 10^3 (0.0-1.0); MONOCYTES % (AUTO) 10 % (0-12); NEUTROPHILS # (AUTO) 2.1 X 10^3 (1.8-7.8); NEUTROPHILS % (AUTO) 63 % (42-75); PLATELET COUNT 46 10^3/uL (130-400); RED BLOOD COUNT 4.21 10^6/uL (4.35-5.85); RED CELL DISTRIBUTION WIDTH 14.4 % (10.0-14.5); WHITE BLOOD COUNT 3.3 10^3/uL (4.3-11.0)
[2017-10-30 19:44] LABS: INR 1.3 (0.8-1.4); PROTHROMBIN TIME PATIENT 16.4 SEC (12.2-14.7)
[2017-10-30 19:47] LABS: ALANINE AMINOTRANSFERASE 24 U/L (0-55); ALBUMIN 4.1 GM/DL (3.2-4.5); ALKALINE PHOSPHATASE 90 U/L (40-136); BILIRUBIN,TOTAL 1.6 MG/DL (0.1-1.0); BUN/CREATININE RATIO 17; CALCIUM 9.1 MG/DL (8.5-10.1); CARBON DIOXIDE 29 MMOL/L (21-32); CHLORIDE 98 MMOL/L (98-107); CREATININE SERUM 0.59 MG/DL (0.60-1.30); GFR ESTIMATED > 60; GLUCOSE 123 MG/DL (70-105); MAGNESIUM 1.4 MG/DL (1.8-2.4); POTASSIUM 4.2 MMOL/L (3.6-5.0); SODIUM 135 MMOL/L (135-145); TOTAL PROTEIN 6.1 GM/DL (6.4-8.2)
--- NOTE | 2017-10-30 19:57 | Diagnostic Imaging Report ---
PROCEDURE: CT head and CT cervical spine without contrast. TECHNIQUE: Multiple contiguous axial images were obtained through the brain and cervical spine without the use of intravenous contrast. Sagittal and coronal reformations through the cervical spine were then performed. INDICATION: Head and neck pain after a fall. FINDINGS: There is prominence of the ventricles and sulci. There is some chronic microvascular ischemic disease. There is no hydrocephalus. There is no midline shift. There is no intracranial mass, hemorrhage or extra-axial fluid collection. Calvarium is intact. There is a right frontal scalp hematoma. The sinuses and mastoid air cells are clear. There is straightening of the normal cervical lordosis. The vertebral body heights are well-maintained. There is no fracture or traumatic subluxation. There is multilevel degenerative disc disease with some posterior facet arthropathy. The lung apices are clear. The prevertebral soft tissues are within normal limits. IMPRESSION: Right frontal scalp hematoma. Atrophy and some chronic microvascular ischemic disease, however, no acute intracranial abnormality. Moderate cervical spondylosis and multilevel degenerative disc disease without acute fracture or traumatic subluxation Dictated by: Dictated on workstation # [id number]
[2017-10-30 22:39] VITALS: BP 145/81
== END 2017-10-30 22:55 | disposition home or self-care (01) ==
LOC: EDUNIT# 18:14 → ER 18:15
DX: S00.03XA Contusion of scalp, initial encounter (principal); R40.2142 Coma scale, eyes open, spontaneous, at arrival to emergency department; R40.2252 Coma scale, best verbal response, oriented, at arrival to emergency department; R40.2362 Coma scale, best motor response, obeys commands, at arrival to emergency department; G47.30 Sleep apnea, unspecified; E03.9 Hypothyroidism, unspecified; F32.9 Major depressive disorder, single episode, unspecified; Z88.2 Allergy status to sulfonamides; Z85.3 Personal history of malignant neoplasm of breast; Z87.19 Personal history of other diseases of the digestive system; Z87.891 Personal history of nicotine dependence; W01.198A Fall on same level from slipping, tripping and stumbling with subsequent striking against other object, initial encounter; Y92.481 Parking lot as the place of occurrence of the external cause
CPT/HCPCS: 36415; 70450; 72125; 80053; 81000; 83735; 84484; 85025; 85610; 85730; 93005

== ENCOUNTER 2017-11-05 21:01 | Emergency (ER) | payer MEDICARE ==
[~2017-11-05] VITALS: Ht 154.9 cm; Wt 63.0 kg
[2017-11-05] MEDS ORDERED: FURO20TA4 (21:36)
[2017-11-05] MEDS ORDERED: CEPH500C (21:36)
--- NOTE | 2017-11-05 21:52 | ED General ---
General Chief Complaint: Skin/Wound Problems Stated Complaint: R LEG BLISTERS/BLEEDING FROM FALL 10/30 Nursing Triage Note: PT PRESENTS TO ER WITH COMPLAINT OF BOTH LEGS OOZING AND BLEEDING. PT HAS CHRONIC EDEMA. STATES SHE TALKED TO HER DENTIST, AFTER NOT BEING ABLE TO GET AHOLD OF DR BARRON AND THEY INSTRUCTED HER TO COME OUT TO THE ER. Nursing Sepsis Screen: No Definite Risk Source of Information: Patient, Old Records Exam Limitations: No Limitations History of Present Illness Date Seen by Provider: Nov 05, 2017 Time Seen by Provider: 21:25 Initial Comments This pleasant 82-year-old woman presents to the emergency room with complaint of serosanguineous oozing from the bilateral shins after having a fall on October 30. She was seen immediately after the fall and was assessed. CT imaging showed no intracranial injury or fractures. She did have a hematoma to the right frontal scalp. The injury to her shins was not noted at the time butt she later developed bruising and oozing. She has chronic edema of the lower extremities which persists. She is using a feminine pad to collect the copious serosanguineous drainage on the right side. She is presently on cephalexin but is concerned she may be having worsening infection. She has extensive ecchymosis at her injury sites. She is not on any anticoagulation or antiplatelet medications but she does have history of chronic thrombocytopenia for which she [facility]. Patient is still ambulatory. Allergies and Home Medications Allergies Coded Allergies: Sulfa (Sulfonamide Antibiotics) (Verified Allergy, 05/18/13) Home Medications Cephalexin 500 Mg Capsule, 500 MG PO TID Prescribed by: UVALDO BARTLETT on 11/05/17 2250 Cholecalciferol (Vitamin D3) 2,000 Unit Capsule, 2,000 UNIT PO HS, (Reported) Docusate Sodium 100 Mg Capsule, 100 MG PO HS, (Reported) L.acidoph & Paracasei,B.lactis 1 Each Capsule, 1 CAP PO HS, (Reported) Levothyroxine Sodium 200 Mcg Tablet, 200 MCG PO DAILY, (Reported) Minocycline HCl 50 Mg Tablet, 50 MG PO TuFr, (Reported) Nadolol 20 Mg Tablet, 10 MG PO DAILY, (Reported) TAKES 1/2 (20MG) TABLET Oxycodone HCl 10 Mg Tablet, 10 MG PO BID, (Reported) Spironolactone 50 Mg Tablet, 50 MG PO DAILY, (Reported) Vit A/C/E/Zinc/Co 1 Cap Capsule, 1 CAP PO BID, (Reported) Patient Home Medication List Home Medication List Reviewed: Yes Constitutional: no symptoms reported EENTM: no symptoms reported Respiratory: no symptoms reported Cardiovascular: see HPI Gastrointestinal: no symptoms reported Genitourinary: no symptoms reported : No Musculoskeletal: see HPI Skin: see HPI Psychiatric/Neurological: No Symptoms Reported Hematologic/Lymphatic: See HPI Immunological/Allergic: no symptoms reported Past Dgvdxqp-Xlpydf-Dnnofu Hx Patient Social History Alcohol Use: Denies Use Recreational Drug Use: No Smoking Status: Former Smoker Type Used: Cigarettes Former Smoker, Quit: Jun 03, 1990 Recent Foreign Travel: No Contact w/Someone Who Travel: No Recent Infectious Disease Expo: No Recent Hopitalizations: No Immunizations Up To Date Tetanus Booster (TDap): Unknown Date of Pneumonia Vaccine: Jul 11, 2014 Date of Influenza Vaccine: Apr 08, 2017 Surgeries History of Surgeries: Yes (RIGHT RCR, MULTI SKIN LESIONS REMOVED, LOWER BACK FUSION, LEFT MASTECTOMY, ) Respiratory History of Respiratory Disorde: Yes Respiratory Disorders: Sleep Apnea Cardiovascular History of Cardiac Disorders: No Neurological History of Neurological Disord: No Reproductive System Hx Reproductive Disorders: No Sexually Transmitted Disease: No Gastrointestinal History of Gastrointestinal Di: Yes (polyp removed from colon) Gastrointestinal Disorders: Liver Disease/Jaundice, Cirrhosis Musculoskeletal History of Musculoskeletal Dis: Yes (arthritis) Musculoskeletal Disorders: Arthritis Endocrine History of Endocrine Disorders: Yes Endocrine Disorders: Hypothyroidsim HEENT HEENT Disorders: Cataract Cancer History of Cancer: Yes Cancer: Breast Psychosocial History of Psychiatric Problem: Yes Behavioral Health Disorders: Depression Integumentary History of Skin or Integumenta: Yes Skin/Integumentary Disorders: Recent Skin Changes Blood Transfusions History of Blood Disorders: Yes (anemia, leukopenia and thrombocytopenia) Family Medical History Significant Family History: No Pertinent Family Hx Physical Exam Vital Signs Vital Signs - First Documented 11/05/17 21:17 Temp 98.0 Pulse 83 Resp 20 B/P (MAP) 132/63 (86) Pulse Ox 96 O2 Delivery Room Air Capillary Refill : Less Than 3 Seconds General Appearance: No Apparent Distress, WD/WN HEENT: PERRL/EOMI, Other (extensive bruising on the right side of the face and neck) Respiratory: Lungs Clear, Normal Breath Sounds, No Accessory Muscle Use, No Respiratory Distress Cardiovascular: Regular Rate, Rhythm, No Edema, No Murmur Extremity: Other (Severe edema of the lower extremities bilaterally. Extensive bruising to the anterior right lower leg. Superficial skin tear or ruptured blister on the left epperson. Wounds on both legs are weeping.) Neurologic/Psychiatric: Alert, Oriented x3, No Motor/Sensory Deficits, Normal Mood/Affect, electrical tester battery II-XII Norm as Tested Skin: Other (See extremity exam) Progress/Results/Core Measures Suspected Sepsis Recent Fever Within 48 Hours: No Infection Criteria Present: None New/Unexplained Altered Menta: No Sepsis Screen: No Definite Risk Sepsis Diagnosis: SIRS Temperature:98.0 Pulse: 83 Respiratory Rate: 20 Laboratory Tests 11/05/17 21:49: White Blood Count 3.3L Blood Pressure 132 /63 Mean: 86 Laboratory Tests 11/05/17 21:49: Creatinine 0.77, INR Comment 1.2, Platelet Count 62L, Total Bilirubin 2.3H Results/Orders Lab Results Laboratory Tests Test 11/05/17 21:49 Range/Units White Blood Count 3.3 L 4.3-11.0 10^3/uL Red Blood Count 3.60 L 4.35-5.85 10^6/uL Hemoglobin 11.5 11.5-16.0 G/DL Hematocrit 34 L 35-52 % Mean Corpuscular Volume 94 80-99 FL Mean Corpuscular Hemoglobin 32 25-34 PG Mean Corpuscular Hemoglobin Concent 34 32-36 G/DL Red Cell Distribution Width 14.4 10.0-14.5 % Platelet Count 62 L 130-400 10^3/uL Mean Platelet Volume 10.7 H 7.4-10.4 FL Neutrophils (%) (Auto) 55 42-75 % Lymphocytes (%) (Auto) 30 12-44 % Monocytes (%) (Auto) 14 H 0-12 % Eosinophils (%) (Auto) 1 0-10 % Basophils (%) (Auto) 0 0-10 % Neutrophils # (Auto) 1.8 1.8-7.8 X 10^3 Lymphocytes # (Auto) 1.0 1.0-4.0 X 10^3 Monocytes # (Auto) 0.5 0.0-1.0 X 10^3 Eosinophils # (Auto) 0.0 0.0-0.3 10^3/uL Basophils # (Auto) 0.0 0.0-0.1 10^3/uL Prothrombin Time 15.7 H 12.2-14.7 SEC INR Comment 1.2 0.8-1.4 Activated Partial Thromboplast Time 34 24-35 SEC Sodium Level 137 135-145 MMOL/L Potassium Level 4.1 3.6-5.0 MMOL/L Chloride Level 97 L 98-107 MMOL/L Carbon Dioxide Level 30 21-32 MMOL/L Anion Gap 10 5-14 MMOL/L Blood Urea Nitrogen 13 7-18 MG/DL Creatinine 0.77 0.60-1.30 MG/DL Estimat Glomerular Filtration Rate > 60 BUN/Creatinine Ratio 17 Glucose Level 127 H 70-105 MG/DL Calcium Level 9.3 8.5-10.1 MG/DL Total Bilirubin 2.3 H 0.1-1.0 MG/DL Aspartate Amino Transf (AST/SGOT) 36 H 5-34 U/L Alanine Aminotransferase (ALT/SGPT) 22 0-55 U/L Alkaline Phosphatase 89 40-136 U/L C-Reactive Protein High Sensitivity 0.18 0.00-0.50 MG/DL B-Type Natriuretic Peptide 190.8 H <100.0 PG/ML Total Protein 6.1 L 6.4-8.2 GM/DL Albumin 4.1 3.2-4.5 GM/DL My Orders Orders - UVALDO FAJARDO MD BNP (11/05/17 21:36) Cbc With Automated Diff (11/05/17 21:36) Comprehensive Metabolic Panel (11/05/17 21:36) Hs C Reactive Protein (11/05/17 21:36) Protime With Inr (11/05/17 21:36) Partial Thromboplastin Time (11/05/17 21:36) Saline Lock/Iv-Start (11/05/17 21:36) Wound Culture (11/05/17 22:36) Vital Signs/I&O Vital Sign - Last 12Hours 11/05/17 11/05/17 21:17 23:04 Temp 98.0 98.0 Pulse 83 83 Resp 20 20 B/P (MAP) 132/63 (86) 132/63 (86) Pulse Ox 96 96 O2 Delivery Room Air Capillary Refill : Less Than 3 Seconds Blood Pressure Mean: 86 Progress Note : Progress Note Labs were fairly unremarkable. Wounds were redressed. We discussed instructions including elevating the leg slightly above the level of the heart. I advised her to contact wound care tomorrow morning to arrange an appointment. A culture was obtained from the right leg. Her course of Keflex was extended with an additional prescription. Departure Impression Impression: Primary Impression: Lower extremity edema Additional Impression: Open wound of both legs with complication Disposition: HOME, SELF-CARE Condition: Stable Departure-Patient Inst. Decision time for Depature: 22:49 Referrals: CHRISTOPHER BARRON MD (PCP/Family) Primary Care Physician Add. Discharge Instructions: Contact [facility] tomorrow morning at [phone]. Continue taking Keflex (cephalexin) as prescribed. Follow-up with Dr. Barron as soon as possible. Elevate your feet slightly above the level of your heart as much as possible. Return to care if symptoms worsen. All discharge instructions reviewed with patient and/or family. Voiced understanding. Scripts Cephalexin (Keflex) 500 Mg Capsule 500 MG PO TID, #15 CAP Prov: UVALDO FAJARDO MD 11/05/17 Copy Copies To 1: CHRISTOPHER BARRON MD Copies To 2: BAILEE URIBE MD, JOSHUA T MD Nov 05, 2017 21:52
[2017-11-05 21:59] LABS: BASOPHILS % (AUTO) 0 % (0-10); EOSINOPHILS % (AUTO) 1 % (0-10); HEMATOCRIT 34 % (35-52); HEMOGLOBIN 11.5 G/DL (11.5-16.0); LYMPHOCYTES % (AUTO) 30 % (12-44); MEAN CORPUSCULAR HEMOGLOBIN 32 PG (25-34); MEAN CORPUSCULAR HGB CONC 34 G/DL (32-36); MEAN CORPUSCULAR VOLUME 94 FL (80-99); MEAN PLATELET VOLUME 10.7 FL (7.4-10.4); MONOCYTES # (AUTO) 0.5 X 10^3 (0.0-1.0); MONOCYTES % (AUTO) 14 % (0-12); NEUTROPHILS # (AUTO) 1.8 X 10^3 (1.8-7.8); NEUTROPHILS % (AUTO) 55 % (42-75); PLATELET COUNT 62 10^3/uL (130-400); RED CELL DISTRIBUTION WIDTH 14.4 % (10.0-14.5); WHITE BLOOD COUNT 3.3 10^3/uL (4.3-11.0)
[2017-11-05 22:12] LABS: INR 1.2 (0.8-1.4); PROTHROMBIN TIME PATIENT 15.7 SEC (12.2-14.7)
[2017-11-05 22:16] LABS: ALANINE AMINOTRANSFERASE 22 U/L (0-55); ALBUMIN 4.1 GM/DL (3.2-4.5); ALKALINE PHOSPHATASE 89 U/L (40-136); BILIRUBIN,TOTAL 2.3 MG/DL (0.1-1.0); BUN/CREATININE RATIO 17; CALCIUM 9.3 MG/DL (8.5-10.1); CARBON DIOXIDE 30 MMOL/L (21-32); CHLORIDE 97 MMOL/L (98-107); CREATININE SERUM 0.77 MG/DL (0.60-1.30); GFR ESTIMATED > 60; GLUCOSE 127 MG/DL (70-105); POTASSIUM 4.1 MMOL/L (3.6-5.0); SODIUM 137 MMOL/L (135-145); TOTAL PROTEIN 6.1 GM/DL (6.4-8.2)
[2017-11-05] MEDS ORDERED: CEPH-507 PO (22:50)
[2017-11-05 23:04] VITALS: BP 132/63
== END 2017-11-05 23:04 | disposition home or self-care (01) ==
LOC: EDUNIT# 21:01 → ER 21:02
DX: R60.0 Localized edema (principal); E03.9 Hypothyroidism, unspecified; S81.801A Unspecified open wound, right lower leg, initial encounter; S81.802A Unspecified open wound, left lower leg, initial encounter; D64.9 Anemia, unspecified; D69.6 Thrombocytopenia, unspecified; D72.819 Decreased white blood cell count, unspecified; G47.30 Sleep apnea, unspecified; Z87.19 Personal history of other diseases of the digestive system; Z87.891 Personal history of nicotine dependence; Z88.2 Allergy status to sulfonamides; W19.XXXA Unspecified fall, initial encounter
CPT/HCPCS: 36415; 80053; 83880; 85025; 85610; 85730; 86141; 87070; 87205

== ENCOUNTER 2017-11-06 17:22 | Outpatient (CLI) | payer MEDICARE ==
[~2017-11-06] VITALS: Ht 157.5 cm; Wt 60.4 kg
[~2017-11-06 17:22] MED LIST changes: +CEPH-507 PO; +CEPH500C; +FURO20TA4
[2017-11-06] MEDS ORDERED: FUROSEMIDE 40 MG/4 ML INJ (LASIX) IV NR (17:41)
[2017-11-06] MEDS ORDERED: CATHETER FLUSH 10 ML SYR IV PRN (17:45)
[2017-11-06 17:54] VITALS: BP 120/64
[2017-11-06] MEDS: POTASSIUM CL 10 MEQ/50 ML IVPB (PRE-MIX) IV SCH ×2 (18:00→18:57)
[2017-11-06] MEDS ORDERED: CATHETER FLUSH 10 ML SYR IV SCH (22:00)
== END 2017-11-06 20:10 | disposition home or self-care (01) ==
LOC: 4THo 17:22 → 4TH 17:23 → 4THo 20:10
PROVIDERS: ATTEND Family Medicine
DX: R60.0 Localized edema (principal)
CPT/HCPCS: 96375

== ENCOUNTER → 2017-11-10 | Outpatient (CLI) | payer MEDICARE | LOC: WOUNDCARE 12:24 | PROVIDERS: ATTEND Surgery | DX: I70.242 Atherosclerosis of native arteries of left leg with ulceration of calf (principal); L97.221 Non-pressure chronic ulcer of left calf limited to breakdown of skin; I87.332 Chronic venous hypertension (idiopathic) with ulcer and inflammation of left lower extremity; I87.321 Chronic venous hypertension (idiopathic) with inflammation of right lower extremity; I50.9 Heart failure, unspecified; I89.0 Lymphedema, not elsewhere classified | CPT/HCPCS: 97597 ==

== ENCOUNTER → 2017-11-17 | Outpatient (CLI) | payer MEDICARE ==
[~2017-11-17] MED LIST changes: +AZIT250T12 PO; +CYCL1DRO OU; +LACT1CAP8 PO; +LEVO100T7 PO; +LEVO88TA54 PO; +Oxycodone Hcl PO; -SPIR50TA2 PO; +SPIR50TA4 PO
== END ==
LOC: WOUNDCARE 13:27
PROVIDERS: ATTEND Surgery
DX: I87.332 Chronic venous hypertension (idiopathic) with ulcer and inflammation of left lower extremity (principal); L97.221 Non-pressure chronic ulcer of left calf limited to breakdown of skin; I89.0 Lymphedema, not elsewhere classified; I50.9 Heart failure, unspecified
CPT/HCPCS: 99212

== ENCOUNTER → 2017-12-08 | Outpatient (CLI) | payer MEDICARE ==
[~2017-12-08] MED LIST changes: -AZIT250T12 PO; -CYCL1DRO OU; -LACT1CAP8 PO; -LEVO100T7 PO; -LEVO88TA54 PO; -Oxycodone Hcl PO; +SPIR50TA2 PO; -SPIR50TA4 PO
== END ==
LOC: WOUNDCARE 14:54
PROVIDERS: ATTEND Surgery
DX: I87.332 Chronic venous hypertension (idiopathic) with ulcer and inflammation of left lower extremity (principal); L97.221 Non-pressure chronic ulcer of left calf limited to breakdown of skin; I89.0 Lymphedema, not elsewhere classified; I50.9 Heart failure, unspecified
CPT/HCPCS: 99212

== ENCOUNTER → 2017-12-24 | Outpatient (CLI) | payer MEDICARE | LOC: WOUNDCARE 12:54 | PROVIDERS: ATTEND Surgery | DX: L97.221 Non-pressure chronic ulcer of left calf limited to breakdown of skin (principal); I89.0 Lymphedema, not elsewhere classified; I87.332 Chronic venous hypertension (idiopathic) with ulcer and inflammation of left lower extremity; I87.321 Chronic venous hypertension (idiopathic) with inflammation of right lower extremity; I50.9 Heart failure, unspecified | CPT/HCPCS: 99212 ==

== ENCOUNTER 2018-01-29 13:45 | Outpatient (RCR) | payer MEDICARE ==
[~2018-01-29 13:45] MED LIST changes: -SPIR50TA2 PO; +SPIR50TA4 PO
[2018-01-29 13:56] LABS: BASOPHILS % (AUTO) 0 % (0-10); EOSINOPHILS % (AUTO) 1 % (0-10); HEMATOCRIT 39 % (35-52); HEMOGLOBIN 13.3 G/DL (11.5-16.0); LYMPHOCYTES # (AUTO) 1.1 X 10^3 (1.0-4.0); LYMPHOCYTES % (AUTO) 31 % (12-44); MEAN CORPUSCULAR HEMOGLOBIN 31 PG (25-34); MEAN CORPUSCULAR HGB CONC 34 G/DL (32-36); MEAN CORPUSCULAR VOLUME 92 FL (80-99); MEAN PLATELET VOLUME 9.9 FL (7.4-10.4); MONOCYTES # (AUTO) 0.4 X 10^3 (0.0-1.0); MONOCYTES % (AUTO) 10 % (0-12); NEUTROPHILS # (AUTO) 2.2 X 10^3 (1.8-7.8); NEUTROPHILS % (AUTO) 59 % (42-75); PLATELET COUNT 62 10^3/uL (130-400); RED BLOOD COUNT 4.24 10^6/uL (4.35-5.85); RED CELL DISTRIBUTION WIDTH 15.4 % (10.0-14.5); WHITE BLOOD COUNT 3.6 10^3/uL (4.3-11.0)
[2018-01-29 14:13] LABS: ALANINE AMINOTRANSFERASE 23 U/L (0-55); ALBUMIN 4.2 GM/DL (3.2-4.5); ALKALINE PHOSPHATASE 103 U/L (40-136); BILIRUBIN,TOTAL 1.5 MG/DL (0.1-1.0); BUN/CREATININE RATIO 28; CALCIUM 9.4 MG/DL (8.5-10.1); CARBON DIOXIDE 24 MMOL/L (21-32); CHLORIDE 102 MMOL/L (98-107); CREATININE SERUM 0.69 MG/DL (0.60-1.30); GFR ESTIMATED > 60; GLUCOSE 200 MG/DL (70-105); POTASSIUM 4.6 MMOL/L (3.6-5.0); SODIUM 136 MMOL/L (135-145); TOTAL PROTEIN 6.1 GM/DL (6.4-8.2)
[2018-02-23] MEDS ORDERED: CYCL1DRO OU (13:33)
[2018-02-23] MEDS ORDERED: OXYC10TA7 PO (13:33)
[2018-02-23] MEDS ORDERED: LEVO88TA54 PO (13:33)
[2018-02-23] MEDS ORDERED: LEVO100T7 PO (13:33)
[2018-02-26] MEDS ORDERED: Oxycodone Hcl PO (08:42)
[2018-02-26] MEDS ORDERED: LACT1CAP8 PO (08:42)
[2018-02-26] MEDS ORDERED: CEPH500C PO (08:42)
[2018-02-26] MEDS ORDERED: AZIT250T12 PO (08:42)
== END 2018-04-29 | disposition home or self-care (01) ==
LOC: ONC 13:45
PROVIDERS: ATTEND Internal Medicine Hematology & Oncology
DX: D69.59 Other secondary thrombocytopenia (principal); D72.819 Decreased white blood cell count, unspecified; K76.0 Fatty (change of) liver, not elsewhere classified; K74.60 Unspecified cirrhosis of liver; K76.6 Portal hypertension; R16.1 Splenomegaly, not elsewhere classified; Z85.3 Personal history of malignant neoplasm of breast; Z85.828 Personal history of other malignant neoplasm of skin; E03.9 Hypothyroidism, unspecified; F32.9 Major depressive disorder, single episode, unspecified; G47.30 Sleep apnea, unspecified; Z90.10 Acquired absence of unspecified breast and nipple; Z92.21 Personal history of antineoplastic chemotherapy; Z79.899 Other long term (current) drug therapy
CPT/HCPCS: 36415; 80053; 85025

== ENCOUNTER 2018-02-23 10:08 | Inpatient (IN) | payer MEDICARE ==
[~2018-02-23] VITALS: Ht 152.4 cm; Wt 62.8 kg
[2018-02-23] MEDS ORDERED: NS IV 500 ML 500 ML IV ONE (10:16)
[2018-02-23 10:30] LABS: BASOPHILS % (AUTO) 0 % (0-10); EOSINOPHILS % (AUTO) 0 % (0-10); HEMATOCRIT 39 % (35-52); LYMPHOCYTES # (AUTO) 0.6 X 10^3 (1.0-4.0); LYMPHOCYTES % (AUTO) 9 % (12-44); MEAN CORPUSCULAR HEMOGLOBIN 31 PG (25-34); MEAN CORPUSCULAR HGB CONC 34 G/DL (32-36); MEAN CORPUSCULAR VOLUME 93 FL (80-99); MEAN PLATELET VOLUME 11.9 FL (7.4-10.4); MONOCYTES # (AUTO) 0.4 X 10^3 (0.0-1.0); MONOCYTES % (AUTO) 7 % (0-12); NEUTROPHILS % (AUTO) 84 % (42-75); PLATELET COUNT 53 10^3/uL (130-400); RED BLOOD COUNT 4.16 10^6/uL (4.35-5.85)
[2018-02-23 10:32] LABS: BILIRUBIN,URINE NEGATIVE (NEGATIVE); CLARITY,URINE CLEAR; GLUCOSE, URINE (UA) NEGATIVE (NEGATIVE); KETONES,URINE 1+ (NEGATIVE); LEUKOCYTE ESTERASE ,URINE NEGATIVE (NEGATIVE); NITRITE,URINE NEGATIVE (NEGATIVE); PH,URINE 6 (5-9); PROTEIN,URINE 1+ (NEGATIVE); UROBILINOGEN,URINE 1 MG/DL (NORMAL)
[2018-02-23 10:39] LABS: BACTERIA,URINE NEGATIVE /HPF; COLOR,URINE YELLOW; RBC,URINE RARE /HPF
--- NOTE | 2018-02-23 10:41 | Diagnostic Imaging Report ---
Indication: Decreased mobility and fever. Comparison: 07/27/2014 Findings: Upright portable view of the chest is obtained. Heart size is normal. The pulmonary vessels appear unremarkable. There is no pneumothorax, mediastinal widening or pleural fluid. There is some subtle new patchy airspace disease at the right lung base. The left lung is clear. Impression: Suspect developing subtle right lower lobe pneumonia. Short-term followup study is recommended. Dictated by: Dictated on workstation # [id number]
--- OUTSIDE RECORDS SUMMARY | 2018-02-23 10:43 | XMS REPORT | Continuity of Care Document ---
Author Author [facility] Organization [facility] Address Unknown Phone Unavailable Allergies Active Description Code Type Severity Reaction Onset Reported/Identified Relationship to Patient Clinical Status Yes Sulfa (Sulfonamide Antibiotics) [id number] Drug Allergy Unknown N/A 2017 Medications There is no data. Problems Date Dx Coded Attending Type Code Diagnosis Diagnosed By 12/27/2009 Ot 727.61 04/02/2010 Ot 174.9 04/02/2010 Ot 719.41 04/02/2010 Ot V57.1 04/02/2010 Ot V58.49 05/07/2010 Ot 174.9 05/07/2010 Ot 719.41 05/07/2010 Ot V57.1 05/07/2010 Ot V58.49 01/23/2011 Ot 173.4 MAL LAYO SCALP /SKIN NECK 01/23/2011 Ot V58.69 OTH MED,LT, CURRENT USE 12/16/2011 Ot 173.42 SQUAMOUS CELL CARCINOMA [...] ENCOUNTER FOR RADIOTHERAPY 12/16/2011 Ot V58.69 OTH MED,LT, CURRENT USE 12/16/2011 Ot V87.41 PERSONAL HISTORY OF [...] BREAST AND NIPPLE 03/23/2012 Ot V58.69 OTH MED,LT, CURRENT USE 03/23/2012 Ot V87.41 PERSONAL HISTORY OF [...] BREAST AND NIPPLE 10/19/2012 Ot V58.69 OTH MED,LT, CURRENT USE 10/19/2012 Ot V87.41 PERSONAL HISTORY OF [...] RIKY SERNA MD Ot 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 05/10/2013 RIKY SERNA MD Ot E849.5 ACCID [...] MD Ot 327.23 OBSTRUCTIVE SLEEP APNEA (ADULT) (PEDIATR 05/25/2013 SHAUN NICOLAS MD Ot 459.81 VENOUS [...] SHAUN NICOLAS MD Ot 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 05/25/2013 SHAUN NICOLAS MD Ot E849.5 ACCID [...] OF BREAST AND NIPPLE 07/25/2013 GUILLE DEAN MD, Ot V58.69 OTH MED,LT,CURRENT USE 07/25/2013 GUILLE [...] Ot 311 DEPRESSIVE DISORDER NEC 04/10/2014 GUILLE DEAN MD Ot 346.90 MIGRAINE UNSPECIFIED [...] APRN Ot 327.23 OBSTRUCTIVE SLEEP APNEA (ADULT) (PEDIATR 07/26/2014 GUILLE DEAN MD Ot 173.42 07/26/2014 GUILLE DEAN MD Ot 244.9 07/26/2014 XUN MD, JARA-NOBLE Ot 278.00 07/26/2014 DIANNE ORTEGA, JARA-NOBLE [...] ORTEGA, JARA-NOBLE Ot V58.69 07/26/2014 DIANNE ORTEGA, MAREK-NOBLE Ot V87.41 07/26/2014 DIANNE ORTEGA, MAREK-NOBLE Ot 173.42 07/26/2014 DIANNE ORTEGA, JARA-NOBLE Ot [...] ORTEGA, JARA-NOBLE Ot V10.3 07/26/2014 DIANNE ORTEGA, MAREK-NOBLE Ot V45.71 07/26/2014 DIANNE ORTEGA, MAREK-NOBLE Ot V58.69 07/26/2014 DIANNE ORTEGA, MAREK-NOBLE Ot V87.41 07/27/2014 DIANNE ORTEGA, JARA-NOBLE Ot 173.42 07/27/2014 DIANNE ORTEGA, JARA-NOBLE Ot 244.9 07/27/2014 DIANNE ORTEGA, JARA-NOBLE Ot 278.00 07/27/2014 DIANNE ORTEGA, MAREK-NOBLE Ot 280.9 07/27/2014 DIANNE ORTEGA, MAREK-NOBLE Ot 287.5 07/27/2014 DIANNE ORTEGA, MAREK-NOBLE Ot 311 07/27/2014 DIANNE ORTEGA, MAREK-NOBLE Ot 346.90 07/27/2014 DIANNE ORTEGA, MAREK-NOBLE Ot 571.5 07/27/2014 DIANNE ORTEGA, GUILLE Ot 572.3 07/27/2014 DIANNE ORTEGA, MAREK-NOBLE Ot 780.57 07/27/2014 DIANNE ORTEGA, MAREK-NOBLE Ot 789.2 07/27/2014 DIANNE ORTEGA, MAREK-NOBLE Ot V10.3 07/27/2014 DIANNE ORTEGA, MAREK-NOBLE Ot [...] ORTEGA, BAILEE P Ot V72.83 09/01/2014 CELINE ORTEGA, BAILEE P Ot V74.8 09/03/2014 CELINE ORTEGA, BAILEE P Ot 173.32 09/14/2014 CELINE ORTEGA, BAILEE P Ot 173.32 09/27/2014 FIDENCIO ORTEGA, SHAUN M Ot 250.00 10/24/2014 DIANNE ORTEGA, GUILLE Ot [...] MIGRAINE UNSPECIFIED W/O INTRACT MGRN W/ 10/24/2014 DIANNE ORTEGA, GUILLE Ot 571.5 CIRRHOSIS OF LIVER NOS 10/24/2014 DIANNE ORTEGA, GUILLE Ot 572.3 PORTAL HYPERTENSION 10/24/2014 DIANNE ORTEGA, GUILLE Ot 780.57 UNSPECIFIED SLEEP APNEA 10/24/2014 DIANNE ORTEGA, GUILLE Ot 789.2 SPLENOMEGALY 10/24/2014 DIANNE ORTEGA, GUILLE Ot V10.3 HX OF BREAST MALIGNANCY 10/24/2014 DIANNE ORTEGA, GUILLE Ot V45.71 ACQUIRED ABSENCE OF BREAST AND NIPPLE 10/24/2014 GUILLE DEAN MD Ot V58.69 OTH MED,LT,CURRENT USE 10/24/2014 DIANNE ORTEGA, GUILLE Ot V87.41 PERSONAL HISTORY OF ANTINEOPLASTIC CHEMO 11/09/2014 DIANNE ORTEGA, GUILLE Ot 173.42 11/09/2014 DIANNE ORTEGA, GUILLE Ot 244.9 11/09/2014 DIANNE ORTEGA, GUILLE Ot 278.00 11/09/2014 DIANNE ORTEGA, GUILLE Ot 280.9 11/09/2014 DIANNE ORTEGA, GUILLE Ot 287.5 11/09/2014 DIANNE ORTEGA, GUILLE Ot 311 11/09/2014 DIANNE ORTEGA, GUILLE Ot 346.90 11/09/2014 DIANNE ORTEGA, GUILLE Ot 571.5 11/09/2014 DIANNE ORTEGA, GUILLE Ot 572.3 11/09/2014 DIANNE ORTEGA, GUILLE Ot 780.57 11/09/2014 DIANNE ORTEGA, JARA-NOBLE Ot 789.2 11/09/2014 DIANNE ORTEGA, JARA-NOBLE Ot [...] ORTEGA, JARA-NOBLE Ot 789.2 11/16/2014 DIANNE ORTEGA, MAREK-NOBLE Ot V10.3 11/16/2014 DIANNE ORTEGA, MAREK-NOBLE Ot V45.71 11/16/2014 DIANNE ORTEGA, MAREK-NOBLE Ot V58.69 11/16/2014 DIANNE ORTEGA, GUILLE Ot [...] ORTEGA, GUILLE Ot 280.9 12/31/2014 DIANNE ORTEGA, MAREK-NOBLE Ot 287.5 12/31/2014 DIANNE ORTEGA, MAREK-NOBLE Ot 311 12/31/2014 DIANNE ORTEGA, GUILLE Ot 346.90 12/31/2014 DIANNE ORTEGA, GUILLE Ot 571.5 12/31/2014 DIANNE ORTEGA, MAREK-NOBLE Ot 572.3 12/31/2014 DIANNE ORTEGA, MAREK-NOBLE Ot 780.57 12/31/2014 DIANNE ORTEGA, MAREK-NOBLE Ot 789.2 12/31/2014 DIANNE ORTEGA, GUILLE Ot V10.3 12/31/2014 DIANNE ORTEGA, MAREK-NOBLE Ot V45.71 12/31/2014 DIANNE ORTEGA, MAREK-NOBLE Ot V58.69 12/31/2014 DIANNE ORTEGA, GUILLE Ot V87.41 01/20/2015 DIANNE ORTEGA, GUILLE Ot 173.42 01/20/2015 DIANNE ORTEGA, MAREK-NOBLE Ot 244.9 01/20/2015 DIANNE ORTEGA, GUILLE Ot 278.00 01/20/2015 DIANNE ORTEGA, MAREK-NOBLE Ot 280.9 01/20/2015 DIANNE ORTEGA, MAREK-NOBLE Ot 287.5 01/20/2015 DIANNE ORTEGA, GUILLE Ot 311 01/20/2015 DIANNE ORTEGA, MAREKNOBLE Ot 346.90 01/20/2015 DIANNE ORTEGA, MAREKNOBLE Ot 571.5 01/20/2015 DIANNE ORTEGA, GUILLE Ot 572.3 01/20/2015 DIANNE ORTEGA, MAREKNOBLE Ot 780.57 01/20/2015 DIANNE ORTEGA, MAREKNOBLE Ot 789.2 01/20/2015 DIANNE ORTEGA, GUILLE Ot [...] 01/27/2015 Ot V87.41 01/27/2015 FIDENCIO ORTEGA, SHAUN Mayer Ot 793.89 01/27/2015 FIDENCIO ORTEGA, SHAUN M [...] ORTEGA, GUILLE Ot 244.9 01/27/2015 DIANNE ORTEGA, GUILLE Ot 278.00 01/27/2015 DIANNE ORTEGA, GUILLE Ot 280.9 01/27/2015 DIANNE ORTEGA, GUILLE Ot 287.5 01/27/2015 DIANNE ORTEGA, GUILLE Ot 311 01/27/2015 DIANNE ORTEGA, GUILLE Ot 346.90 01/27/2015 DIANNE ORTEGA, GUILLE Ot 571.5 01/27/2015 DIANNE ORTEGA, GUILLE Ot 572.3 01/27/2015 DIANNE ORTEGA, GUILLE Ot 780.57 01/27/2015 DIANNE ORTEGA, GUILLE Ot 789.2 01/27/2015 DIANNE ORTEGA, GUILLE Ot V10.3 01/27/2015 DIANNE ORTEGA, GUILLE Ot V45.71 01/27/2015 DIANNE ORTEGA, GUILLE Ot V58.69 01/27/2015 DIANNE ORTEGA, GUILLE Ot V87.41 01/27/2015 MACK ORTEGA, CLARKE Mayer Ot V72.84 01/27/2015 DIANNE ORTEGA, GUILLE Ot 174.9 01/27/2015 DIANNE ORTEGA, GUILLE Ot V76.11 01/30/2015 DIANNE ORTEGA, GUILLE Ot 174.9 01/30/2015 DIANNE ORTEGA, GUILLE Ot V76.11 02/13/2015 DIANNE ORTEGA, GUILLE Ot 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 02/13/2015 DIANNE ORTEGA, GUILLE Ot 244.9 HYPOTHYROIDISM NOS 02/13/2015 DIANNE ORTEGA, [...] Ot V10.3 HX OF BREAST MALIGNANCY 02/13/2015 DIANNE ORTEGA, GUILLE Ot V45.71 ACQUIRED ABSENCE OF BREAST AND NIPPLE 02/13/2015 GUILLE DEAN MD Ot V58.69 OTH MED,LT,CURRENT USE 02/13/2015 DIANNE ORTEGA, GUILLE Ot V87.41 PERSONAL HISTORY OF ANTINEOPLASTIC CHEMO 03/17/2015 SAKSHI ORTEGA, FELICIANO Ocasio Ot 571.5 03/23/2015 SAKSHI ORTEGA, FELICIANO Ocasio Ot 571.5 07/05/2015 DIANNE ORTEGA, MAREK-NOBLE Ot 173.42 07/05/2015 DIANNE ORTEGA, MAREK-NOBLE Ot 244.9 07/05/2015 DIANNE ORTEGA, MAREK-NOBLE Ot 278.00 07/05/2015 DIANNE ORTEGA, MAREK-NOBLE Ot 280.9 07/05/2015 DIANNE ORTEGA, MAREK-NOBLE Ot 287.5 07/05/2015 DIANNE ORTEGA, JARA-NOBLE Ot 311 07/05/2015 DIANNE ORTEGA, JARA-NOBLE Ot 346.90 07/05/2015 DIANNE ORTEGA, JARA-NOBLE Ot 571.5 07/05/2015 DIANNE ORTEGA, MAREK-NOBLE Ot 572.3 07/05/2015 DIANNE ORTEGA, MAREK-NOBLE Ot 780.57 07/05/2015 DIANNE ORTEGA, JARA-NOBLE Ot 789.2 07/05/2015 DIANNE ORTEGA, JARA-NOBLE Ot V10.3 07/05/2015 DIANNE ORTEGA, MAREK-NOBLE Ot V45.71 07/05/2015 DIANNE ORTEGA, MAREK-NOBLE Ot V58.69 07/05/2015 DIANNE ORTEGA, MAREK-NOBLE Ot V87.41 09/18/2015 DIANNE ORTEGA, JARA-NOBLE Ot C44.42 09/18/2015 DIANNE ORTEGA, JARA-NOBLE Ot D50.9 09/18/2015 DIANNE ORTEGA, MAREK-NOBLE Ot D69.6 09/18/2015 DIANNE ORTEGA, JARA-NOBLE Ot E03.9 09/18/2015 DIANNE ORTEGA, MAREK-NOBLE Ot E66.9 09/18/2015 DIANNE ORTEGA, JARA-NOBLE Ot F32.9 09/18/2015 DIANNE ORTEGA, JARA-NOBLE Ot G43.909 09/18/2015 DIANNE ORTEGA, JARA-NOBLE Ot G47.30 09/18/2015 DIANNE ORTEGA, JARA-NOBLE Ot K76.6 09/18/2015 DIANNE ORTEGA, JARA-NOBLE Ot R16.1 09/18/2015 DIANNE ORTEGA, JARA-NOBLE Ot Z85.3 09/18/2015 DIANNE ORTEGA, JARA-NOBLE Ot Z90.10 09/18/2015 DIANNE ORTEGA, JARA-NOBLE Ot Z92.21 09/21/2015 DIANNE ORTEGA, JARA-NOBLE Ot C44.42 09/21/2015 DIANNE ORTEGA, GUILLE Ot D50.9 09/21/2015 DIANNE ORTEGA, GUILLE Ot D69.6 09/21/2015 DIANNE ORTEGA, GUILLE Ot E03.9 09/21/2015 DIANNE ORTEGA, GUILLE Ot E66.9 09/21/2015 DIANNE ORTEGA, GUILLE Ot F32.9 09/21/2015 DIANNE ORTEGA, GUILLE Ot G43.909 09/21/2015 DIANNE ORTEGA, GUILLE Ot G47.30 09/21/2015 DIANNE ORTEGA, GUILLE Ot K76.6 09/21/2015 DIANNE ORTEGA, GUILLE Ot R16.1 09/21/2015 DIANNE ORTEGA, GUILLE Ot Z85.3 09/21/2015 DIANNE ORTEGA, GUILLE Ot Z90.10 09/21/2015 DIANNE ORTEGA, GUILLE Ot Z92.21 10/09/2015 DIANNE ORTEGA, GUILLE Dimas 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 10/09/2015 DIANNE ORTEGA, GUILLE Dimas D50.9 IRON DEFICIENCY ANEMIA, UNSPECIFIED 10/09/2015 DIANNE ORTEGA, GUILLE Dimas D69.6 THROMBOCYTOPENIA, UNSPECIFIED 10/09/2015 DIANNE ORTEGA, GUILLE Dimas E03.9 HYPOTHYROIDISM, UNSPECIFIED 10/09/2015 DIANNE ORTEGA, GUILLE Ot E66.9 OBESITY, UNSPECIFIED 10/09/2015 DIANNE ORTEGA, GUILLE Ot F32.9 MAJOR DEPRESSIVE DISORDER, SINGLE EPISOD 10/09/2015 DIANNE ORTEGA, GUILLE Dimas G43.909 MIGRAINE, UNSP, NOT INTRACTABLE, WITHOUT 10/09/2015 DIANNE ORTEGA, GUILLE Ot G47.30 SLEEP APNEA, UNSPECIFIED 10/09/2015 DIANNE ORTEGA, GUILLE Dimas K76.6 PORTAL HYPERTENSION 10/09/2015 DIANNE ORTEGA, GUILLE Dimas R16.1 SPLENOMEGALY, NOT ELSEWHERE CLASSIFIED 10/09/2015 DIANNE ORTEGA, GUILLE Ot Z85.3 PERSONAL HISTORY OF MALIGNANT NEOPLASM O 10/09/2015 DIANNE ORTEGA, GUILLE Ot Z90.10 ACQUIRED ABSENCE OF UNSPECIFIED BREAST A 10/09/2015 DIANNE ORTEGA, GUILLE Dimas Z92.21 PERSONAL HISTORY OF ANTINEOPLASTIC CHEMO 01/26/2016 GUILLE DEAN MD Ot 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 01/26/2016 GUILLE DEAN MD, Ot D50.9 IRON DEFICIENCY ANEMIA, UNSPECIFIED 01/26/2016 GUILLE DEAN MD Ot D69.6 THROMBOCYTOPENIA, UNSPECIFIED 01/26/2016 GUILLE DEAN MD Ot E03.9 HYPOTHYROIDISM, UNSPECIFIED 01/26/2016 GUILLE DEAN MD Ot E66.9 OBESITY, UNSPECIFIED 01/26/2016 GUILLE DEAN MD, Ot F32.9 MAJOR DEPRESSIVE DISORDER, SINGLE EPISOD 01/26/2016 GUILLE DEAN MD, Ot G43.909 MIGRAINE, UNSP, NOT INTRACTABLE, WITHOUT 01/26/2016 GUILLE DEAN MD, Ot G47.30 SLEEP APNEA, UNSPECIFIED 01/26/2016 GUILLE DEAN MD Ot K76.6 PORTAL HYPERTENSION 01/26/2016 GUILLE DEAN MD Ot R16.1 SPLENOMEGALY, NOT ELSEWHERE CLASSIFIED 01/26/2016 GUILLE DEAN MD Ot Z85.3 PERSONAL HISTORY OF MALIGNANT NEOPLASM O 01/26/2016 GUILLE DEAN MD Ot Z90.10 ACQUIRED ABSENCE OF UNSPECIFIED BREAST A 01/26/2016 GUILLE DEAN MD, Ot Z92.21 PERSONAL HISTORY OF ANTINEOPLASTIC CHEMO 01/29/2016 GUILLE DEAN MD Ot Z12.31 ENCNTR SCREEN MAMMOGRAM FOR MALIGNANT NE 02/01/2016 GUILLE DEAN MD, Ot Z12.31 ENCNTR SCREEN MAMMOGRAM FOR MALIGNANT NE 02/08/2016 GUILLE DEAN MD, Ot 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 02/08/2016 GUILLE DEAN MD, Ot D50.9 IRON DEFICIENCY ANEMIA, UNSPECIFIED 02/08/2016 GUILLE DEAN MD Ot D69.6 THROMBOCYTOPENIA, UNSPECIFIED 02/08/2016 GUILLE DEAN MD Ot E03.9 HYPOTHYROIDISM, UNSPECIFIED 02/08/2016 GUILLE DEAN MD Ot E66.9 OBESITY, UNSPECIFIED 02/08/2016 GUILLE DEAN MD Ot F32.9 MAJOR DEPRESSIVE DISORDER, SINGLE EPISOD 02/08/2016 GUILLE DEAN MD Ot G43.909 MIGRAINE, UNSP, NOT INTRACTABLE, WITHOUT 02/08/2016 DIANNE ORTEGA, GUILLE Ot G47.30 SLEEP APNEA, UNSPECIFIED 02/08/2016 GUILLE DEAN MD Ot K76.6 PORTAL HYPERTENSION 02/08/2016 GUILLE DEAN MD Ot R16.1 SPLENOMEGALY, NOT ELSEWHERE CLASSIFIED 02/08/2016 GUILLE DEAN MD Ot Z85.3 PERSONAL HISTORY OF MALIGNANT NEOPLASM O 02/08/2016 DIANNE ORTEGA, GUILLE Ot Z90.10 ACQUIRED ABSENCE [...] BREAST AND NIPPLE 02/10/2016 Ot V58.69 OTH MED,LT, CURRENT USE 02/10/2016 Ot V87.41 PERSONAL HISTORY OF ANTINEOPLASTIC CHEMO 02/10/2016 Ot 709.9 SKIN DISORDER NOS 02/10/2016 Ot V72.81 EXAM-PRE- OPERATIVE CARDIOVASCULAR 02/10/2016 Ot 173.4 MAL LAYO SCALP /SKIN NECK 02/10/2016 Ot 244.9 HYPOTHYROIDISM NOS 02/10/2016 [...] BREAST AND NIPPLE 02/10/2016 Ot V58.69 OTH MED,LT, CURRENT USE 02/10/2016 Ot V87.41 PERSONAL HISTORY OF [...] BREAST AND NIPPLE 02/10/2016 Ot V58.69 OTH MED,LT, CURRENT USE 02/10/2016 Ot V87.41 PERSONAL HISTORY OF [...] BREAST AND NIPPLE 02/10/2016 Ot V58.69 OTH MED,LT, CURRENT USE 02/10/2016 Ot V87.41 PERSONAL HISTORY OF ANTINEOPLASTIC CHEMO 02/10/2016 Ot 174.9 MALIGN NEOPL BREAST NOS 02/10/2016 Ot V76.11 SCRN MAMMO- HIGH RISK PT, MALIGNANT NEOPL 02/10/2016 DIANNE ORTEGA, GUILLE Ot V76.12 OTH SCREEN MAMMO-MALIGN NEOPLASM OF MANI 02/10/2016 FIDENCIO ORTEGA, SHAUN Mayer Ot 793.80 UNSPEC ABNORMAL MAMMOGRAM 02/10/2016 SHAUN NICOLAS MD Ot 287.5 THROMBOCYTOPENIA [...] BREAST AND NIPPLE 02/10/2016 Ot V58.69 OTH MED,LT, CURRENT USE 02/10/2016 Ot V87.41 PERSONAL HISTORY OF [...] OR UNSPEC TY 02/10/2016 CLARKE GIRON MD M Ot V72.84 EXAM PRE-OPERATIVE NOS 02/10/2016 GUILLE DEAN MD Ot 174.9 MALIGN NEOPL BREAST NOS 02/10/2016 GUILLE DEAN MD, Ot V76.11 SCRN MAMMO-HIGH RISK PT, MALIGNANT NEOPL 02/10/2016 CHRISTINA CROSS SNATH HANDLE ASSEMBLER Ot 729.5 PAIN IN LIMB 02/10/2016 CHRISTINA CROSS SNATH HANDLE ASSEMBLER Ot 729.81 SWELLING OF LIMB 02/10/2016 FELICIANO CANTOR MD Ot 571.5 CIRRHOSIS OF LIVER NOS 02/10/2016 GUILLE DEAN MD, Ot 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 02/10/2016 GUILLE DEAN MD, Ot D50.9 IRON DEFICIENCY ANEMIA, UNSPECIFIED 02/10/2016 GUILLE DEAN MD, Ot D69.6 THROMBOCYTOPENIA, UNSPECIFIED 02/10/2016 GUILLE DEAN MD Ot E03.9 HYPOTHYROIDISM, UNSPECIFIED 02/10/2016 GUILLE DEAN MD Ot E66.9 OBESITY, UNSPECIFIED 02/10/2016 GUILLE DEAN MD Ot F32.9 MAJOR DEPRESSIVE DISORDER, SINGLE EPISOD 02/10/2016 GUILLE DEAN MD, Ot G43.909 MIGRAINE, UNSP, NOT INTRACTABLE, WITHOUT 02/10/2016 GUILLE DEAN MD, Ot G47.30 SLEEP APNEA, UNSPECIFIED 02/10/2016 GUILLE DEAN MD Ot K76.6 PORTAL HYPERTENSION 02/10/2016 GUILLE DEAN [...] ENCNTR SCREEN MAMMOGRAM FOR MALIGNANT NE 02/16/2016 CHRISTOPHER WALKER MD Ot Z48.00 ENCOUNTER FOR CHANGE OR REMOVAL OF NONSU 03/26/2016 GUILLE DEAN MD, Ot 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 03/26/2016 GUILLE DEAN MD, Ot D50.9 IRON DEFICIENCY ANEMIA, UNSPECIFIED 03/26/2016 GUILLE DEAN MD, Ot D69.6 THROMBOCYTOPENIA, UNSPECIFIED 03/26/2016 GUILLE DEAN MD, Ot E03.9 HYPOTHYROIDISM, UNSPECIFIED 03/26/2016 GUILLE DEAN MD, Ot E66.9 OBESITY, UNSPECIFIED 03/26/2016 GUILLE DEAN MD, Ot F32.9 MAJOR DEPRESSIVE DISORDER, SINGLE EPISOD 03/26/2016 GUILLE DEAN MD, Ot G43.909 MIGRAINE, UNSP, NOT INTRACTABLE, WITHOUT 03/26/2016 GUILLE DEAN MD, Ot G47.30 SLEEP APNEA, UNSPECIFIED 03/26/2016 GUILLE DEAN MD, Ot K76.6 PORTAL HYPERTENSION 03/26/2016 GUILLE DEAN MD Ot R16.1 SPLENOMEGALY, NOT ELSEWHERE CLASSIFIED 03/26/2016 GUILLE DEAN MD, Ot Z85.3 PERSONAL HISTORY OF MALIGNANT NEOPLASM O 03/26/2016 GUILLE DEAN MD, Ot Z90.10 ACQUIRED ABSENCE OF UNSPECIFIED BREAST A 03/26/2016 GUILLE DEAN MD, Ot Z92.21 PERSONAL HISTORY OF ANTINEOPLASTIC CHEMO 04/04/2016 GUILLE DEAN MD, Ot 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 04/04/2016 GUILLE DEAN MD, Ot D50.9 IRON DEFICIENCY ANEMIA, UNSPECIFIED 04/04/2016 GUILLE DEAN MD, Ot D69.6 THROMBOCYTOPENIA, UNSPECIFIED 04/04/2016 GUILLE DEAN MD, Ot E03.9 HYPOTHYROIDISM, UNSPECIFIED 04/04/2016 GUILLE DEAN MD, Ot E66.9 OBESITY, UNSPECIFIED 04/04/2016 GUILLE DEAN MD, Ot F32.9 MAJOR DEPRESSIVE DISORDER, SINGLE EPISOD 04/04/2016 GUILLE DEAN MD, Ot G43.909 MIGRAINE, UNSP, NOT INTRACTABLE, WITHOUT 04/04/2016 GUILLE DEAN MD, Ot G47.30 SLEEP APNEA, UNSPECIFIED 04/04/2016 GUILLE DEAN MD Ot K76.6 PORTAL HYPERTENSION 04/04/2016 GUILLE DEAN MD Ot R16.1 SPLENOMEGALY, NOT ELSEWHERE CLASSIFIED 04/04/2016 GUILLE DEAN MD Ot Z85.3 PERSONAL HISTORY OF MALIGNANT NEOPLASM O 04/04/2016 GUILLE DEAN MD Ot Z90.10 ACQUIRED ABSENCE OF UNSPECIFIED BREAST A 04/04/2016 GUILLE DEAN MD Ot Z92.21 PERSONAL HISTORY OF ANTINEOPLASTIC CHEMO 05/06/2016 GUILLE DEAN MD, Ot 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 05/06/2016 GUILLE DEAN MD, Ot D50.9 IRON DEFICIENCY ANEMIA, UNSPECIFIED 05/06/2016 [...] HISTORY OF ANTINEOPLASTIC CHEMO 08/22/2016 GUILLE DEAN MD, Ot 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 08/22/2016 GUILLE DEAN MD, Ot D50.9 IRON DEFICIENCY ANEMIA, UNSPECIFIED 08/22/2016 [...] HISTORY OF ANTINEOPLASTIC CHEMO 09/30/2016 PALMIRA CARLOS SNATH HANDLE ASSEMBLER Ot M17.12 UNILATERAL PRIMARY OSTEOARTHRITIS, LEFT 10/03/2016 GUILLE DEAN MD Ot C44.42 SQUAMOUS CELL [...] OF SKIN OF SCALP 11/19/2016 GUILLE DEAN MD Ot D50.9 IRON DEFICIENCY ANEMIA, UNSPECIFIED 11/19/2016 [...] NEOPL BREAST NOS 01/28/2017 Ot V76.11 SCRN MAMMO- HIGH RISK PT, MALIGNANT NEOPL 01/28/2017 GUILLE DEAN MD, Ot V76.12 OTH SCREEN MAMMO-MALIGN NEOPLASM OF [...] BREAST AND NIPPLE 01/28/2017 Ot V58.69 OTH MED,LT, CURRENT USE 01/28/2017 Ot V87.41 PERSONAL HISTORY OF [...] MD Ot V72.84 EXAM PRE-OPERATIVE NOS 01/28/2017 GUILLE DEAN MD Ot 174.9 MALIGN NEOPL BREAST NOS 01/28/2017 GUILLE DEAN MD, Ot V76.11 SCRN MAMMO-HIGH RISK PT, MALIGNANT NEOPL 01/28/2017 CHRISTINA CROSS SNATH HANDLE ASSEMBLER Ot 729.5 PAIN IN LIMB 01/28/2017 CHRISTINA CROSS SNATH HANDLE ASSEMBLER Ot 729.81 SWELLING OF LIMB 01/28/2017 SAKSHI ORTEGA, FELICIANO Ocasio Ot 571.5 CIRRHOSIS OF LIVER NOS 01/28/2017 GUILLE DEAN MD, Ot Z12.31 ENCNTR SCREEN MAMMOGRAM FOR MALIGNANT NE 01/28/2017 DENISE ORTEGA, CHRISTOPHER Ocasio Ot Z48.00 ENCOUNTER FOR CHANGE OR REMOVAL OF NONSU 01/28/2017 GUILLE DEAN MD, Ot 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 01/28/2017 GUILLE DEAN MD, Ot D50.9 IRON DEFICIENCY ANEMIA, UNSPECIFIED 01/28/2017 GUILLE DEAN MD, Ot D69.6 THROMBOCYTOPENIA, UNSPECIFIED 01/28/2017 GUILLE DEAN MD Ot E03.9 HYPOTHYROIDISM, UNSPECIFIED 01/28/2017 GUILLE DEAN [...] OF MALIGNANT NEOPLASM O 01/28/2017 GUILLE DEAN MD Ot Z90.10 ACQUIRED ABSENCE OF UNSPECIFIED BREAST A 01/28/2017 GUILLE DEAN MD Ot Z92.21 PERSONAL HISTORY OF ANTINEOPLASTIC CHEMO 01/28/2017 GUILLE DEAN MD Ot Z12.31 ENCNTR SCREEN MAMMOGRAM FOR MALIGNANT NE 02/20/2017 GUILLE DEAN MD, Ot Z12.31 ENCNTR SCREEN MAMMOGRAM FOR MALIGNANT NE 02/28/2017 GUILLE DEAN MD Ot 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 02/28/2017 GUILLE DEAN MD, Ot D50.9 IRON DEFICIENCY ANEMIA, UNSPECIFIED 02/28/2017 GUILLE DEAN MD Ot D69.6 THROMBOCYTOPENIA, UNSPECIFIED 02/28/2017 GUILLE DEAN MD Ot E03.9 HYPOTHYROIDISM, UNSPECIFIED 02/28/2017 GUILLE DEAN MD Ot E66.9 OBESITY, UNSPECIFIED 02/28/2017 GUILLE DEAN MD Ot F32.9 MAJOR DEPRESSIVE DISORDER, SINGLE EPISOD 02/28/2017 GUILLE DEAN MD, Ot G43.909 MIGRAINE, UNSP, NOT INTRACTABLE, WITHOUT 02/28/2017 GUILLE DEAN MD, Ot G47.30 SLEEP APNEA, UNSPECIFIED 02/28/2017 GUILLE DEAN MD Ot K76.6 PORTAL HYPERTENSION 02/28/2017 GUILLE DEAN MD Ot R16.1 SPLENOMEGALY, NOT ELSEWHERE CLASSIFIED 02/28/2017 GUILLE DEAN MD Ot Z85.3 PERSONAL HISTORY OF MALIGNANT NEOPLASM O 02/28/2017 GUILLE DEAN MD Ot Z90.10 ACQUIRED ABSENCE OF UNSPECIFIED BREAST A 02/28/2017 GUILLE DEAN MD Ot Z92.21 PERSONAL HISTORY OF ANTINEOPLASTIC CHEMO 03/04/2017 GUILLE DEAN MD, Ot 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 03/04/2017 GUILLE DEAN MD, Ot D50.9 IRON DEFICIENCY ANEMIA, UNSPECIFIED 03/04/2017 GUILLE DEAN MD, Ot D69.6 THROMBOCYTOPENIA, UNSPECIFIED 03/04/2017 GUILLE DEAN MD Ot E03.9 HYPOTHYROIDISM, UNSPECIFIED 03/04/2017 GUILLE DEAN MD Ot E66.9 OBESITY, UNSPECIFIED 03/04/2017 GUILLE DEAN [...] NEOPL BREAST NOS 05/20/2017 Ot V76.11 SCRN MAMMO- HIGH RISK PT, MALIGNANT NEOPL 05/20/2017 GUILLE DEAN MD Ot V76.12 OTH SCREEN MAMMO-MALIGN NEOPLASM OF MANI 05/20/2017 SHAUN NICOLAS MD Ot 793.80 UNSPEC ABNORMAL MAMMOGRAM 05/20/2017 SHAUN NICOLAS MD Ot 287.5 THROMBOCYTOPENIA NOS 05/20/2017 SHAUN NICOLAS MD Ot 789.2 SPLENOMEGALY 05/20/2017 SHAUN NICOLAS MD Ot 287.5 THROMBOCYTOPENIA NOS 05/20/2017 SHAUN NICOLAS MD Ot 789.1 HEPATOMEGALY 05/20/2017 SHAUN NICOLAS MD Ot 789.2 SPLENOMEGALY [...] BREAST AND NIPPLE 05/20/2017 Ot V58.69 OTH MED,LT, CURRENT USE 05/20/2017 Ot V87.41 PERSONAL HISTORY OF ANTINEOPLASTIC CHEMO 05/20/2017 SHAUN NICOLAS MD Ot 793.89 OTH (ABN) FINDINGS ON RADIOLOGICAL EXAMI 05/20/2017 SHAUN NICOLAS MD Ot V76.12 OTH SCREEN MAMMO-MALIGN NEOPLASM OF MANI 05/20/2017 BAILEE BERGER MD Ot 173.32 SQUAMOUS CELL CARCINOMA OF SKIN OF OTH 05/20/2017 CELINE ORTEGA, BAILEE Mak Ot 709.9 SKIN DISORDER NOS 05/20/2017 BAILEE BERGER MD Ot V72.63 PRE-PROCEDURAL LABORATORY EXAMINATION 05/20/2017 BAILEE BERGER MD Ot V72.83 EXAM PRE-OPERATIVE NEC 05/20/2017 BAILEE BERGER MD Ot V74.8 SCREEN-BACTERIAL DIS NEC 05/20/2017 SHAUN NICOLAS MD Ot 250.00 DIAB LEANNE WO COMPL, TYPE II OR UNSPEC TY 05/20/2017 MACK ORTEGA, CLARKE Mayer Ot V72.84 EXAM PRE-OPERATIVE NOS 05/20/2017 DIANNE ORTEGA, GUILLE Ot 174.9 MALIGN NEOPL BREAST NOS 05/20/2017 GUILLE DEAN MD Ot V76.11 SCRN MAMMO-HIGH RISK PT, MALIGNANT NEOPL 05/20/2017 CHRISTINA CROSS Ot 729.5 PAIN IN LIMB 05/20/2017 CHRISTINA CROSS Ot 729.81 SWELLING OF LIMB 05/20/2017 FELICIANO CANTOR MD Ot 571.5 CIRRHOSIS OF LIVER NOS 05/20/2017 GUILLE DEAN MD, Ot Z12.31 ENCNTR SCREEN MAMMOGRAM FOR MALIGNANT NE 05/20/2017 CHRISTOPHER WALKER MD Ot Z48.00 ENCOUNTER FOR [...] Ot E66.9 OBESITY, UNSPECIFIED 05/20/2017 GUILLE DEAN MD Ot F32.9 MAJOR DEPRESSIVE DISORDER, SINGLE EPISOD 05/20/2017 GUILLE DEAN MD, Ot G43.909 MIGRAINE, UNSP, NOT INTRACTABLE, WITHOUT 05/20/2017 GUILLE DEAN MD Ot G47.30 SLEEP APNEA, UNSPECIFIED 05/20/2017 GUILLE DEAN MD Ot K76.6 PORTAL HYPERTENSION 05/20/2017 GUILLE DEAN MD, Ot R16.1 SPLENOMEGALY, NOT ELSEWHERE CLASSIFIED 05/20/2017 GUILLE DEAN MD Ot Z85.3 PERSONAL HISTORY OF MALIGNANT NEOPLASM O 05/20/2017 GUILLE DEAN MD Ot Z90.10 ACQUIRED ABSENCE [...] FACP CCDS Ot R01.2 OTHER CARDIAC SOUNDS 05/29/2017 RIAN ORTEGA FACC, ALI FACP CCDS Ot K74.69 OTHER CIRRHOSIS OF LIVER 05/29/2017 RIAN ORTEGA FACC, ALI FACP CCDS Ot R00.1 BRADYCARDIA, UNSPECIFIED 05/29/2017 RIAN ORTEGA FACC, ALI FACP CCDS Ot R01.2 OTHER CARDIAC SOUNDS 06/03/2017 RIAN ORTEGA FACC, ALI FACP CCDS Ot D69.6 THROMBOCYTOPENIA, UNSPECIFIED 06/03/2017 RIAN ORTEGA FACC, ALI FACP CCDS Ot E03.9 HYPOTHYROIDISM, UNSPECIFIED 06/03/2017 RIAN ORTEGA FACC, ALI FACP CCDS Ot E66.9 OBESITY, UNSPECIFIED 06/03/2017 RIAN ORETGA FACC, ALI FACP CCDS Ot G43.909 MIGRAINE, UNSP, NOT INTRACTABLE, WITHOUT 06/03/2017 RIAN ORTEGA FACC, ALI FACP CCDS Ot G47.33 OBSTRUCTIVE SLEEP APNEA (ADULT) (PEDIATR 06/03/2017 RIAN ORTEGA FACC, ALI FACP CCDS Ot I25.10 ATHSCL HEART DISEASE OF [place] CORONARY 06/03/2017 RIAN ORTEGA FACC, ALI FACP CCDS Ot I70.0 ATHEROSCLEROSIS OF [place] 06/03/2017 RIAN ORTEGA FACC, ALI FACP CCDS Ot K74.60 UNSPECIFIED CIRRHOSIS OF LIVER 06/03/2017 RIAN ORTEGA FACC, ALI FACP CCDS Ot K76.9 LIVER DISEASE, UNSPECIFIED 06/03/2017 RIAN ORTEGA FACC, ALI FACP CCDS Ot Z79.899 OTHER PRODUCTION QUALITY MANAGER (CURRENT) DRUG THERAPY 06/03/2017 RIAN ORTEGA FACC, ALI FACP CCDS Ot Z85.3 PERSONAL HISTORY OF MALIGNANT NEOPLASM O 06/03/2017 RIAN ORTEGA FACC, ALI FACP CCDS Ot Z87.891 PERSONAL HISTORY OF NICOTINE DEPENDENCE 06/04/2017 RIAN ORTEGA FACC, ALI FACP CCDS Ot K74.69 OTHER CIRRHOSIS OF LIVER 06/04/2017 RIAN ORTEGA FACC, ALI FACP CCDS Ot R00.1 BRADYCARDIA, UNSPECIFIED 06/04/2017 RIAN LEMUS, ALI FACP CCDS Ot R01.2 OTHER CARDIAC SOUNDS 06/06/2017 RIAN LEMUS, ALI FACP CCDS Ot K74.69 OTHER CIRRHOSIS OF LIVER 06/06/2017 RIAN LEMUS, ALI FACP CCDS Ot R00.1 BRADYCARDIA, UNSPECIFIED 06/06/2017 RIAN LEMUS, ALI FACP CCDS Ot R01.2 OTHER CARDIAC SOUNDS 06/11/2017 RIAN LEMUS, ALI FACP CCDS Ot K74.69 OTHER CIRRHOSIS OF LIVER 06/11/2017 RIAN LEMUS, ALI FACP CCDS Ot R00.1 BRADYCARDIA, UNSPECIFIED 06/11/2017 RIAN ORTEGA FACC, ALI FACP CCDS Ot R01.2 OTHER CARDIAC SOUNDS 06/12/2017 RIAN ORTEGA FACC, ALI FACP CCDS Ot K74.69 OTHER CIRRHOSIS OF LIVER 06/12/2017 RIAN LEMUS, ALI FACP CCDS Ot R00.1 BRADYCARDIA, UNSPECIFIED 06/12/2017 RIAN ORTEGA FACC, ALI FACP CCDS Ot R01.2 OTHER CARDIAC SOUNDS 06/19/2017 RIAN ORTEGA FACC, ALI FACP CCDS Ot D69.6 THROMBOCYTOPENIA, UNSPECIFIED 06/19/2017 RIAN ORTEGA FACC, ALI FACP CCDS Ot E03.9 HYPOTHYROIDISM, UNSPECIFIED 06/19/2017 RIAN ORTEGA FACC, ALI FACP CCDS Ot E66.9 OBESITY, UNSPECIFIED 06/19/2017 RIAN LEMUS, ALI FACP CCDS Ot G43.909 MIGRAINE, UNSP, NOT INTRACTABLE, WITHOUT 06/19/2017 RIAN ORTEGA FACC, ALI FACP CCDS Ot G47.33 OBSTRUCTIVE SLEEP APNEA (ADULT) (PEDIATR 06/19/2017 RIAN ORTEGA FACC, ALI FACP CCDS Ot I25.10 ATHSCL HEART DISEASE OF [place] CORONARY 06/19/2017 RIAN ORTEGA FACC, ALI FACP CCDS Ot I70.0 ATHEROSCLEROSIS OF [place] 06/19/2017 RIAN ORTEGA FACC, ALI FACP CCDS Ot K74.60 UNSPECIFIED CIRRHOSIS OF LIVER 06/19/2017 RIAN ORTEGA FACC, ALI FACP CCDS Ot K76.9 LIVER DISEASE, UNSPECIFIED 06/19/2017 RIAN ORTEGA FACC, ALI FACP CCDS Ot Z79.899 OTHER NURSING HOME (CURRENT) DRUG THERAPY 06/19/2017 RIAN ORTEGA FACC, ALI FACP CCDS Ot Z85.3 PERSONAL HISTORY OF MALIGNANT NEOPLASM O 06/19/2017 RIAN ORTEGA FACC, ALI FACP CCDS Ot Z87.891 PERSONAL HISTORY OF NICOTINE DEPENDENCE 2017 RIAN ORTEGA FACC, ALI FACP CCDS Ot D69.6 THROMBOCYTOPENIA, UNSPECIFIED 2017 RIAN ORTEGA FACC, ALI FACP CCDS Ot E03.9 HYPOTHYROIDISM, UNSPECIFIED 2017 RIAN ORTEGA FACC, ALI FACP CCDS Ot E66.9 OBESITY, UNSPECIFIED 2017 RIAN ORTEGA FACC, ALI FACP CCDS Ot G43.909 MIGRAINE, UNSP, NOT INTRACTABLE, WITHOUT 2017 RIAN ORTEGA FACC, ALI FACP CCDS Ot G47.33 OBSTRUCTIVE SLEEP APNEA (ADULT) (PEDIATR 2017 RIAN ORTEGA FACC, ALI FACP CCDS Ot I25.10 ATHSCL HEART DISEASE OF [place] CORONARY 2017 RIAN ORTEGA FACC, ALI FACP CCDS Ot I70.0 ATHEROSCLEROSIS OF [place] 2017 RIAN ORTEGA FACC, ALI FACP CCDS Ot K74.60 UNSPECIFIED CIRRHOSIS OF LIVER 2017 RIAN ORTEGA FACC, ALI FACP CCDS Ot K76.9 LIVER DISEASE, UNSPECIFIED 2017 RIAN ORTEGA FACC, ALI FACP CCDS Ot Z79.899 OTHER NURSING HOME (CURRENT) DRUG THERAPY 2017 RIAN ORTEGA FACC, ALI FACP CCDS Ot Z85.3 PERSONAL HISTORY OF MALIGNANT NEOPLASM O 2017 RIAN ORTEGA FACC, ALI FACP CCDS Ot Z87.891 PERSONAL HISTORY OF NICOTINE DEPENDENCE 2017 RIAN ORTEGA FACC, ALI FACP CCDS Ot K74.69 OTHER CIRRHOSIS OF LIVER 2017 RIAN ORTEGA FACC, ALI FACP CCDS Ot R00.1 BRADYCARDIA, UNSPECIFIED 2017 RIAN ORTEGA FACC, ALI FACP CCDS Ot R01.2 OTHER CARDIAC SOUNDS 07/17/2017 GUILLE DEAN MD Ot 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 07/17/2017 GUILLE DEAN MD Ot D50.9 IRON DEFICIENCY ANEMIA, UNSPECIFIED 07/17/2017 GUILLE DEAN MD Ot D69.6 THROMBOCYTOPENIA, UNSPECIFIED 07/17/2017 GUILLE DEAN MD Ot E03.9 HYPOTHYROIDISM, UNSPECIFIED 07/17/2017 GUILLE DEAN MD Ot E66.9 OBESITY, UNSPECIFIED 07/17/2017 GUILLE DEAN MD Ot F32.9 MAJOR DEPRESSIVE DISORDER, SINGLE EPISOD 07/17/2017 GUILLE DEAN MD Ot G43.909 MIGRAINE, UNSP, NOT INTRACTABLE, WITHOUT 07/17/2017 GUILLE DEAN MD Ot G47.30 SLEEP APNEA, UNSPECIFIED 07/17/2017 GUILLE DEAN MD Ot K76.6 PORTAL HYPERTENSION 07/17/2017 GUILLE DEAN MD Ot R16.1 SPLENOMEGALY, NOT ELSEWHERE CLASSIFIED 07/17/2017 GUILLE DEAN MD Ot Z85.3 PERSONAL HISTORY OF MALIGNANT NEOPLASM O 07/17/2017 GUILLE DEAN MD Ot Z90.10 ACQUIRED ABSENCE OF UNSPECIFIED BREAST A 07/17/2017 GUILLE DEAN MD Ot Z92.21 PERSONAL HISTORY OF ANTINEOPLASTIC CHEMO 07/18/2017 RIAN ORTEGA FACC, JAMIN FACP CCDS Ot D69.6 THROMBOCYTOPENIA, UNSPECIFIED 07/18/2017 RIAN ORTEGA FACC, JAMIN FACP CCDS Ot E03.9 HYPOTHYROIDISM, UNSPECIFIED 07/18/2017 RIAN ORTEGA FACC, ALI FACP CCDS Ot E66.9 OBESITY, UNSPECIFIED 07/18/2017 RIAN ORTEGA FACC, ALI FACP CCDS Ot G43.909 MIGRAINE, UNSP, NOT INTRACTABLE, WITHOUT 07/18/2017 RIAN ORTEGA FACC, ALI FACP CCDS Ot G47.33 OBSTRUCTIVE SLEEP APNEA (ADULT) (PEDIATR 07/18/2017 RIAN ORTEGA FACC, ALI FACP CCDS Ot I25.10 ATHSCL HEART DISEASE OF [place] CORONARY 07/18/2017 RIAN ORTEGA FACC, ALI FACP CCDS Ot I70.0 ATHEROSCLEROSIS OF [place] 07/18/2017 RIAN ORTEGA FACC, ALI FACP CCDS Ot K74.60 UNSPECIFIED CIRRHOSIS OF LIVER 07/18/2017 RIAN ORTEGA FACC, ALI FACP CCDS Ot K76.9 LIVER DISEASE, UNSPECIFIED 07/18/[address] [facility], ALI FACP CCDS Ot Z79.899 OTHER NURSING HOME (CURRENT) DRUG THERAPY 07/18/[address] [facility], ALI FACP CCDS Ot Z85.3 PERSONAL HISTORY OF MALIGNANT NEOPLASM O 07/18/[address] 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 08/26/2017 GUILLE DEAN MD Ot D50.9 IRON DEFICIENCY ANEMIA, UNSPECIFIED 08/26/2017 GUILLE DEAN MD Ot D69.6 THROMBOCYTOPENIA, UNSPECIFIED 08/26/2017 GUILLE DEAN MD Ot E03.9 HYPOTHYROIDISM, UNSPECIFIED 08/26/2017 GUILLE DEAN MD Ot E66.9 OBESITY, UNSPECIFIED 08/26/2017 GUILLE DEAN MD Ot F32.9 MAJOR DEPRESSIVE DISORDER, SINGLE EPISOD 08/26/2017 GUILLE DEAN MD Ot G43.909 MIGRAINE, UNSP, NOT INTRACTABLE, WITHOUT 08/26/2017 GUILLE DEAN MD Ot G47.30 SLEEP APNEA, UNSPECIFIED 08/26/2017 GUILLE DEAN MD Ot K76.6 PORTAL HYPERTENSION 08/26/2017 GUILLE DEAN MD Ot R16.1 SPLENOMEGALY, NOT ELSEWHERE CLASSIFIED 08/26/2017 GUILLE DEAN MD Ot Z85.3 PERSONAL HISTORY OF MALIGNANT NEOPLASM O 08/26/2017 GUILLE DEAN MD Ot Z90.10 ACQUIRED ABSENCE OF UNSPECIFIED BREAST A 08/26/2017 GUILLE DEAN MD Ot Z92.21 PERSONAL HISTORY OF ANTINEOPLASTIC CHEMO 09/03/2017 GUILLE DEAN MD Ot 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 09/03/2017 GUILLE DEAN MD Ot D50.9 IRON DEFICIENCY ANEMIA, UNSPECIFIED 09/03/2017 GUILLE DEAN MD Ot D69.6 THROMBOCYTOPENIA, UNSPECIFIED 09/03/2017 GUILLE DEAN MD Ot E03.9 HYPOTHYROIDISM, UNSPECIFIED 09/03/2017 GUILLE DEAN MD Ot E66.9 OBESITY, UNSPECIFIED 09/03/2017 GUILLE DEAN MD Ot F32.9 MAJOR DEPRESSIVE DISORDER, SINGLE EPISOD 09/03/2017 GUILLE DEAN MD Ot G43.909 MIGRAINE, UNSP, NOT INTRACTABLE, WITHOUT 09/03/2017 GUILLE DEAN MD Ot G47.30 SLEEP APNEA, UNSPECIFIED 09/03/2017 GUILLE DEAN MD Ot K76.6 PORTAL HYPERTENSION 09/03/2017 GUILLE DEAN MD Ot R16.1 SPLENOMEGALY, NOT ELSEWHERE CLASSIFIED 09/03/2017 GUILLE DEAN MD Ot Z85.3 PERSONAL HISTORY OF MALIGNANT NEOPLASM O 09/03/2017 GUILLE DEAN MD Ot Z90.10 ACQUIRED ABSENCE OF UNSPECIFIED BREAST A 09/03/2017 GUILLE DEAN MD Ot Z92.21 PERSONAL HISTORY OF ANTINEOPLASTIC CHEMO 10/14/2017 GUILLE DEAN MD Ot 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 10/14/2017 GUILLE DEAN MD Ot D50.9 IRON DEFICIENCY ANEMIA, UNSPECIFIED 10/14/2017 GUILLE DEAN MD Ot D69.6 THROMBOCYTOPENIA, UNSPECIFIED 10/14/2017 GUILLE DEAN MD Ot E03.9 HYPOTHYROIDISM, UNSPECIFIED 10/14/2017 GUILLE DEAN MD Ot E66.9 OBESITY, UNSPECIFIED 10/14/2017 GUILLE DEAN MD Ot F32.9 MAJOR DEPRESSIVE DISORDER, SINGLE EPISOD 10/14/2017 GUILLE DEAN MD Ot G43.909 MIGRAINE, UNSP, NOT INTRACTABLE, WITHOUT 10/14/2017 GUILLE EDAN MD Ot G47.30 SLEEP APNEA, UNSPECIFIED 10/14/2017 GUILLE DEAN MD Ot K76.6 PORTAL HYPERTENSION 10/14/2017 GUILLE DEAN MD Ot R16.1 SPLENOMEGALY, NOT ELSEWHERE CLASSIFIED 10/14/2017 GUILLE DEAN MD Ot Z85.3 PERSONAL HISTORY OF MALIGNANT NEOPLASM O 10/14/2017 GUILLE DEAN MD Ot Z90.10 ACQUIRED ABSENCE OF UNSPECIFIED BREAST A 10/14/2017 GUILLE DEAN MD Ot Z92.21 PERSONAL HISTORY OF ANTINEOPLASTIC CHEMO 10/15/2017 GUILLE DEAN MD Ot 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 10/15/2017 GUILLE DEAN MD Ot D50.9 IRON DEFICIENCY ANEMIA, UNSPECIFIED 10/15/2017 GUILLE DEAN MD Ot D69.6 THROMBOCYTOPENIA, UNSPECIFIED 10/15/2017 GUILLE DEAN MD Ot E03.9 HYPOTHYROIDISM, UNSPECIFIED 10/15/2017 GUILLE DEAN MD Ot E66.9 OBESITY, UNSPECIFIED 10/15/2017 GUILLE DEAN MD Ot F32.9 MAJOR DEPRESSIVE DISORDER, SINGLE EPISOD 10/15/2017 GUILLE DEAN MD Ot G43.909 MIGRAINE, UNSP, NOT INTRACTABLE, WITHOUT 10/15/2017 GUILLE DEAN MD Ot G47.30 SLEEP APNEA, UNSPECIFIED 10/15/2017 GUILLE DEAN MD Ot K76.6 PORTAL HYPERTENSION 10/15/2017 GUILLE DEAN MD Ot R16.1 SPLENOMEGALY, NOT ELSEWHERE CLASSIFIED 10/15/2017 GUILLE DEAN MD Ot Z85.3 PERSONAL HISTORY OF MALIGNANT NEOPLASM O 10/15/2017 GUILLE DEAN MD Ot Z90.10 ACQUIRED ABSENCE OF UNSPECIFIED BREAST A 10/15/2017 GUILLE DEAN MD Ot Z92.21 PERSONAL HISTORY OF ANTINEOPLASTIC CHEMO 10/30/2017 ARAMIS RIVERA MD Ot E03.9 HYPOTHYROIDISM, UNSPECIFIED 10/30/2017 ARAMIS RIVERA MD, Ot F32.9 MAJOR DEPRESSIVE DISORDER, SINGLE EPISOD 10/30/2017 ARAMIS RIVERA MD, Ot G47.30 SLEEP APNEA, UNSPECIFIED 10/30/2017 ARAMIS RIVERA MD Ot R40.2142 COMA SCALE, EYES OPEN, SPONTANEOUS, EMR 10/30/2017 ARAMIS RIVERA MD Ot R40.2252 COMA SCALE, BEST VERBAL RESPONSE, ORIENT 10/30/2017 ARAMIS RIVERA MD Ot R40.2362 COMA SCALE, BEST MOTOR RESPONSE, OBEYS C 10/30/2017 ARAMIS RIVERA MD Ot S00.03XA CONTUSION OF SCALP, INITIAL ENCOUNTER 10/30/2017 ARAMIS RIVERA MD Ot W01.198A FALL SAME LEV FROM SLIP/TRIP W STRIKE AG 10/30/2017 ARAMIS RIVERA MD Ot Y92.[address] OF OCCURRENCE O 10/30/2017 MIGUEL MD, ARAMIS J Ot Z85.3 PERSONAL HISTORY OF MALIGNANT NEOPLASM O 10/30/2017 ARAMIS RIVERA MD Ot Z87.19 PERSONAL HISTORY OF OTHER DISEASES OF 10/30/2017 ARAMIS RIVERA MD Ot Z87.891 PERSONAL HISTORY OF NICOTINE DEPENDENCE 10/30/2017 ARAMIS RIVERA MD Ot Z88.2 ALLERGY STATUS TO SULFONAMIDES STATUS 11/05/2017 UVALDO FAJARDO MD Ot D64.9 ANEMIA, UNSPECIFIED 11/05/2017 UVALDO FAJARDO MD Ot D69.6 THROMBOCYTOPENIA, UNSPECIFIED 11/05/2017 UVALDO FAJARDO MD Ot D72.819 DECREASED WHITE BLOOD CELL COUNT, UNSPEC 11/05/2017 UVALDO FAJARDO MD Ot E03.9 HYPOTHYROIDISM, UNSPECIFIED 11/05/2017 UVALDO FAJARDO MD Ot G47.30 SLEEP APNEA, UNSPECIFIED 11/05/2017 UVALDO FAJARDO MD Ot R60.0 LOCALIZED EDEMA 11/05/2017 UVALDO FAJARDO MD Ot S81.801A UNSPECIFIED OPEN WOUND, RIGHT LOWER LEG, 11/05/2017 UVALDO FAJARDO MD Ot S81.802A UNSPECIFIED OPEN WOUND, LEFT LOWER LEG, 11/05/2017 UVALDO FAJARDO MD Ot W19.XXXA UNSPECIFIED FALL, INITIAL ENCOUNTER 11/05/2017 UVALDO FAJARDO MD Ot Z87.19 PERSONAL HISTORY OF OTHER DISEASES OF 11/05/2017 UVALDO FAJARDO MD Ot Z87.891 PERSONAL HISTORY OF NICOTINE DEPENDENCE 11/05/2017 UVALDO FAJARDO MD Ot Z88.2 ALLERGY STATUS TO SULFONAMIDES STATUS 11/06/2017 DIANNE ORTEGA, GUILLE Ot V76.12 OTH SCREEN MAMMO-MALIGN NEOPLASM OF MANI 11/06/2017 SHAUN NICOLAS MD Ot 793.80 UNSPEC ABNORMAL MAMMOGRAM 11/06/2017 SHAUN NICOLAS MD Ot 287.5 THROMBOCYTOPENIA NOS 11/06/2017 SHAUN NICOLAS MD Ot 789.2 SPLENOMEGALY 11/06/2017 SHAUN NICOLAS MD Ot 287.5 THROMBOCYTOPENIA NOS 11/06/2017 SHAUN NICOLAS MD Ot 789.1 HEPATOMEGALY 11/06/2017 SHAUN NICOLAS MD Ot 789.2 SPLENOMEGALY 11/06/2017 SHAUN NICOLAS MD Ot 571.5 CIRRHOSIS OF LIVER NOS 11/06/2017 SHAUN NICOLAS MD Ot 571.8 CHRONIC LIVER DIS NEC 11/06/2017 Ot 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 11/06/2017 Ot 244.9 HYPOTHYROIDISM NOS 11/06/2017 Ot 278.00 OBESITY, NOS 11/06/2017 Ot 311 DEPRESSIVE DISORDER NEC 11/06/2017 Ot 346.90 MIGRAINE UNSPECIFIED W/O INTRACT MGRN W/ 11/06/2017 Ot 780.57 UNSPECIFIED SLEEP APNEA 11/06/2017 Ot V10.3 HX OF BREAST MALIGNANCY 11/06/2017 Ot V45.71 ACQUIRED ABSENCE OF BREAST AND NIPPLE 11/06/2017 Ot V58.69 OTH MED,LT, CURRENT USE 11/06/2017 Ot V87.41 PERSONAL HISTORY OF ANTINEOPLASTIC CHEMO 11/06/2017 SHAUN NICOLAS MD Ot 793.89 OTH (ABN) FINDINGS ON RADIOLOGICAL EXAMI 11/06/2017 SHAUN NICOLAS MD Ot V76.12 OTH SCREEN MAMMO-MALIGN NEOPLASM OF MANI 11/06/2017 BAILEE BERGER MD Ot 173.32 SQUAMOUS CELL CARCINOMA OF SKIN OF OTH 11/06/2017 BAILEE BERGER MD Ot 709.9 SKIN DISORDER NOS 11/06/2017 BAILEE BERGER MD Ot V72.63 PRE-PROCEDURAL LABORATORY EXAMINATION 11/06/2017 BAILEE BERGER MD Ot V72.83 EXAM PRE-OPERATIVE NEC 11/06/2017 BAILEE BERGER MD Ot V74.8 SCREEN-BACTERIAL DIS NEC 11/06/2017 SHAUN NICOLAS MD Ot 250.00 DIAB LEANNE WO COMPL, TYPE II OR UNSPEC TY 11/06/2017 MACK ORTEGA, CLARKE Mayer Ot V72.84 EXAM PRE-OPERATIVE NOS 11/06/2017 GUILLE DEAN MD Ot 174.9 MALIGN NEOPL BREAST NOS 11/06/2017 GUILLE DEAN MD Ot V76.11 SCRN MAMMO-HIGH RISK PT, MALIGNANT NEOPL 11/06/2017 CROSS, CHRISTINA M SNATH HANDLE ASSEMBLER Ot 729.5 PAIN IN LIMB 11/06/2017 CHRISTINA CROSS SNATH HANDLE ASSEMBLER Ot 729.81 SWELLING OF LIMB 11/06/2017 SAKSHI ORTEGA, FELICIANO Ocasio Ot 571.5 CIRRHOSIS OF LIVER NOS 11/06/2017 GUILLE DEAN MD, Ot Z12.31 ENCNTR SCREEN MAMMOGRAM FOR MALIGNANT NE 11/06/2017 DENISE ORTEGA, CHRISTOPHER Ocasio Ot Z48.00 ENCOUNTER FOR CHANGE OR REMOVAL OF NONSU 11/06/2017 GUILLE DEAN MD Ot Z12.31 ENCNTR SCREEN MAMMOGRAM FOR MALIGNANT NE 11/06/2017 RIAN ORTEGA FACC, ALI FACP CCDS Ot K74.69 OTHER CIRRHOSIS OF LIVER 11/06/2017 RIAN ORTEGA FACC, ALI FACP CCDS Ot R00.1 BRADYCARDIA, UNSPECIFIED 11/06/2017 RIAN ORTEGA FACC, ALI FACP CCDS Ot R01.2 OTHER CARDIAC SOUNDS 11/06/2017 RIAN ORTEGA FACC, ALI FACP CCDS Ot K74.69 OTHER CIRRHOSIS OF LIVER 11/06/2017 RIAN ORTEGA FACC, ALI FACP CCDS Ot R00.1 BRADYCARDIA, UNSPECIFIED 11/06/2017 RIAN ORTEGA FACC, ALI FACP CCDS Ot R01.2 OTHER CARDIAC SOUNDS 11/06/2017 RIAN ORTEGA FACC, ALI FACP CCDS Ot K74.69 OTHER CIRRHOSIS OF LIVER 11/06/2017 RIAN ORTEGA FACC, ALI FACP CCDS Ot R00.1 BRADYCARDIA, UNSPECIFIED 11/06/2017 RIAN ORTEGA FACC, ALI FACP CCDS Ot R01.2 OTHER CARDIAC SOUNDS 11/06/2017 GUILLE DEAN MD Ot Z12.31 ENCNTR SCREEN MAMMOGRAM FOR MALIGNANT NE 11/06/2017 GUILLE DEAN MD Ot 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 11/06/2017 GUILLE DEAN MD Ot D50.9 IRON DEFICIENCY ANEMIA, UNSPECIFIED 11/06/2017 GUILLE DEAN MD Ot D69.6 THROMBOCYTOPENIA, UNSPECIFIED 11/06/2017 GUILLE DEAN MD Ot E03.9 HYPOTHYROIDISM, UNSPECIFIED 11/06/2017 GUILLE DEAN MD Ot E66.9 OBESITY, UNSPECIFIED 11/06/2017 GUILLE DEAN MD Ot F32.9 MAJOR DEPRESSIVE DISORDER, SINGLE EPISOD 11/06/2017 GUILLE DEAN MD Ot G43.909 MIGRAINE, UNSP, NOT INTRACTABLE, WITHOUT 11/06/2017 GUILLE DEAN MD Ot G47.30 SLEEP APNEA, UNSPECIFIED 11/06/2017 GUILLE DEAN MD Ot K76.6 PORTAL HYPERTENSION 11/06/2017 GUILLE DEAN MD Ot R16.1 SPLENOMEGALY, NOT ELSEWHERE CLASSIFIED 11/06/2017 GUILLE DEAN MD Ot Z85.3 PERSONAL HISTORY OF MALIGNANT NEOPLASM O 11/06/2017 GUILLE DEAN MD Ot Z90.10 ACQUIRED ABSENCE OF UNSPECIFIED BREAST A 11/06/2017 GUILLE DEAN MD, Ot Z92.21 PERSONAL HISTORY OF ANTINEOPLASTIC CHEMO 11/06/2017 DENISE ORTEGA, CHRISTOPHER A Ot R60.0 LOCALIZED EDEMA 11/07/2017 UVALDO FAJARDO MD Ot D64.9 ANEMIA, UNSPECIFIED 11/07/2017 UVALDO FAJARDO MD Ot D69.6 THROMBOCYTOPENIA, UNSPECIFIED 11/07/2017 UVALDO FAJARDO MD Ot D72.819 DECREASED WHITE BLOOD CELL COUNT, UNSPEC 11/07/2017 UVALDO FAJARDO MD Ot E03.9 HYPOTHYROIDISM, UNSPECIFIED 11/07/2017 UVALDO FAJARDO MD Ot G47.30 SLEEP APNEA, UNSPECIFIED 11/07/2017 UVALDO FAJARDO MD Ot R60.0 LOCALIZED EDEMA 11/07/2017 UVALDO FAJARDO MD Ot S81.801A UNSPECIFIED OPEN WOUND, RIGHT LOWER LEG, 11/07/2017 UVALDO FAJARDO MD Ot S81.802A UNSPECIFIED OPEN WOUND, LEFT LOWER LEG, 11/07/2017 UVALDO FAJARDO MD Ot W19.XXXA UNSPECIFIED FALL, INITIAL ENCOUNTER 11/07/2017 UVALDO FAAJRDO MD Ot Z87.19 PERSONAL HISTORY OF OTHER DISEASES OF TH 11/07/2017 UVALDO FAJARDO MD Ot Z87.891 PERSONAL HISTORY OF NICOTINE DEPENDENCE 11/07/2017 UVALDO FAJARDO MD Ot Z88.2 ALLERGY STATUS TO SULFONAMIDES STATUS 11/07/2017 Ot 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 11/07/2017 Ot 244.9 HYPOTHYROIDISM NOS 11/07/2017 Ot 278.00 OBESITY, NOS 11/07/2017 Ot 311 DEPRESSIVE DISORDER NEC 11/07/2017 Ot 346.90 MIGRAINE UNSPECIFIED W/O INTRACT MGRN W/ 11/07/2017 Ot 780.57 UNSPECIFIED SLEEP APNEA 11/07/2017 Ot V10.3 HX OF BREAST MALIGNANCY 11/07/2017 Ot V45.71 ACQUIRED ABSENCE OF BREAST AND NIPPLE 11/07/2017 Ot V58.69 OTH MED,LT, CURRENT USE 11/07/2017 Ot V87.41 PERSONAL HISTORY OF ANTINEOPLASTIC CHEMO 11/07/2017 GUILLE DEAN MD Ot Z12.31 ENCNTR SCREEN MAMMOGRAM FOR MALIGNANT NE 11/07/2017 GUILLE DEAN MD Ot 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 11/07/2017 GUILLE DEAN MD Ot D50.9 IRON DEFICIENCY ANEMIA, UNSPECIFIED 11/07/2017 GUILLE DEAN MD Ot D69.6 THROMBOCYTOPENIA, UNSPECIFIED 11/07/2017 GUILLE DEAN MD Ot E03.9 HYPOTHYROIDISM, UNSPECIFIED 11/07/2017 GUILLE DEAN MD Ot E66.9 OBESITY, UNSPECIFIED 11/07/2017 GUILLE DEAN MD Ot F32.9 MAJOR DEPRESSIVE DISORDER, SINGLE EPISOD 11/07/2017 GUILLE DEAN MD Ot G43.909 MIGRAINE, UNSP, NOT INTRACTABLE, WITHOUT 11/07/2017 GUILLE DEAN MD Ot G47.30 SLEEP APNEA, UNSPECIFIED 11/07/2017 GUILLE DEAN MD Ot K76.6 PORTAL HYPERTENSION 11/07/2017 GUILLE DEAN MD Ot R16.1 SPLENOMEGALY, NOT ELSEWHERE CLASSIFIED 11/07/2017 GUILLE DEAN MD Ot Z85.3 PERSONAL HISTORY OF MALIGNANT NEOPLASM O 11/07/2017 GUILLE DEAN MD Ot Z90.10 ACQUIRED ABSENCE OF UNSPECIFIED BREAST A 11/07/2017 GUILLE DEAN MD Ot Z92.21 PERSONAL HISTORY OF ANTINEOPLASTIC CHEMO 11/10/2017 DENISE ORTEGA, CHRISTOPHER Ocasio Ot R60.0 LOCALIZED EDEMA 11/11/2017 JOJO BAILEE ORTEGA Ot I50.9 HEART FAILURE, UNSPECIFIED 11/11/2017 BAILEE URIBE MD Ot I70.242 ATHSCL [place] ARTERIES OF LEFT LEG W ULC 11/11/2017 BAILEE URIBE MD Ot I87.321 CHRONIC VENOUS HYPERTENSION W INFLAMMATI 11/11/2017 BAILEE URIBE MD Ot I87.332 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 11/11/2017 BAILEE URIBE MD Ot I89.0 LYMPHEDEMA, NOT ELSEWHERE CLASSIFIED 11/11/2017 BAILEE URIBE MD Ot 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 11/12/2017 DENISE ORTEGA, CHRISTOPHER Ocasio Ot R60.0 LOCALIZED EDEMA 11/18/2017 BAILEE URIBE MD Ot I50.9 HEART FAILURE, UNSPECIFIED 11/18/2017 BAILEE URIBE MD Ot I87.332 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 11/18/2017 BAILEE URIBE MD Ot I89.0 LYMPHEDEMA, NOT ELSEWHERE CLASSIFIED 11/18/2017 BAILEE URIBE MD Ot 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 11/23/2017 BAILEE URIBE MD Ot I50.9 HEART FAILURE, UNSPECIFIED 11/23/2017 BAILEE URIBE MD Ot I87.332 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 11/23/2017 BAILEE URIBE MD Ot I89.0 LYMPHEDEMA, NOT ELSEWHERE CLASSIFIED 11/23/2017 BAILEE URIBE MD Ot 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 11/26/2017 BAILEE URIBE MD Ot I50.9 HEART FAILURE, UNSPECIFIED 11/26/2017 BAILEE URIBE MD Ot I87.332 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 11/26/2017 BAILEE URIBE MD Ot I89.0 LYMPHEDEMA, NOT ELSEWHERE CLASSIFIED 11/26/2017 BAILEE URIBE MD Ot 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 12/02/2017 BAILEE URIBE MD Ot I50.9 HEART FAILURE, UNSPECIFIED 12/02/2017 BAILEE URIBE MD Ot I70.242 ATHSCL [place] ARTERIES OF LEFT LEG W ULC 12/02/2017 BAILEE URIBE MD Ot I87.321 CHRONIC VENOUS HYPERTENSION W INFLAMMATI 12/02/2017 BAILEE URIBE MD Ot I87.332 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 12/02/2017 BAILEE URIBE MD Ot I89.0 LYMPHEDEMA, NOT ELSEWHERE CLASSIFIED 12/02/2017 BAILEE URIBE MD Ot 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 12/09/2017 BAILEE URIBE MD Ot I50.9 HEART FAILURE, UNSPECIFIED 12/09/2017 BAILEE URIBE MD Ot I87.332 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 12/09/2017 BAILEE URIBE MD Ot I89.0 LYMPHEDEMA, NOT ELSEWHERE CLASSIFIED 12/09/2017 BAILEE URIBE MD Ot 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 12/10/2017 BAILEE URIBE MD, Ot I50.9 HEART FAILURE, UNSPECIFIED 12/10/2017 BAILEE URIBE MD Ot I87.332 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 12/10/2017 BAILEE URIBE MD, Ot I89.0 LYMPHEDEMA, NOT ELSEWHERE CLASSIFIED 12/10/2017 BAILEE URIBE MD Ot 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 12/10/2017 BAILEE URIBE MD Ot I50.9 HEART FAILURE, UNSPECIFIED 12/10/2017 BAILEE URIBE MD Ot I70.242 ATHSCL [place] ARTERIES OF LEFT LEG W ULC 12/10/2017 BAILEE URIBE MD Ot I87.321 CHRONIC VENOUS HYPERTENSION W INFLAMMATI 12/10/2017 BAILEE URIBE MD Ot I87.332 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 12/10/2017 BAILEE URIBE MD Ot I89.0 LYMPHEDEMA, NOT ELSEWHERE CLASSIFIED 12/10/2017 BAILEE URIBE MD Ot 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 12/16/2017 BAILEE URIBE MD Ot I50.9 HEART FAILURE, UNSPECIFIED 12/16/2017 BAILEE URIBE MD Ot I87.332 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 12/16/2017 BAILEE URIBE MD Ot I89.0 LYMPHEDEMA, NOT ELSEWHERE CLASSIFIED 12/16/2017 BAILEE URIBE MD Ot 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 12/17/2017 BAILEE URIBE MD Ot I50.9 HEART FAILURE, UNSPECIFIED 12/17/2017 BAILEE URIBE MD Ot 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 12/17/2017 BAILEE URIBE MD Ot I89.0 LYMPHEDEMA, NOT ELSEWHERE CLASSIFIED 12/17/2017 BAILEE URIBE MD Ot 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 12/17/2017 BAILEE URIBE MD Ot I50.9 HEART FAILURE, UNSPECIFIED 12/17/2017 BAILEE URIBE MD Ot I87.332 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 12/17/2017 BAILEE URIBE MD Ot I89.0 LYMPHEDEMA, NOT ELSEWHERE CLASSIFIED 12/17/2017 BAILEE URIBE MD Ot 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 12/25/2017 BAILEE URIBE MD Ot I50.9 HEART FAILURE, UNSPECIFIED 12/25/2017 BAILEE URIBE MD Ot I87.332 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 12/25/2017 BAILEE URIBE MD Ot I89.0 LYMPHEDEMA, NOT ELSEWHERE CLASSIFIED 12/25/2017 BAILEE URIBE MD Ot 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 01/02/2018 BAILEE URIBE MD Ot I50.9 HEART FAILURE, UNSPECIFIED 01/02/2018 BAILEE URIBE MD Ot I87.332 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 01/02/2018 BAILEE URIBE MD Ot I89.0 LYMPHEDEMA, NOT ELSEWHERE CLASSIFIED 01/02/2018 BAILEE URIBE MD Ot 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 01/07/2018 BAILEE URIBE MD Ot I50.9 HEART FAILURE, UNSPECIFIED 01/07/2018 BAILEE URIBE MD Ot I87.332 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 01/07/2018 BAILEE URIBE MD Ot I89.0 LYMPHEDEMA, NOT ELSEWHERE CLASSIFIED 01/07/2018 BAILEE URIBE MD Ot 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 01/14/2018 BAILEE URIBE MD Ot I50.9 HEART FAILURE, UNSPECIFIED 01/14/2018 BAILEE URIBE MD Ot I87.321 CHRONIC VENOUS HYPERTENSION W INFLAMMATI 01/14/2018 BAILEE URIBE MD Ot I87.332 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 01/14/2018 BAILEE URIBE MD, Ot I89.0 LYMPHEDEMA, NOT ELSEWHERE CLASSIFIED 01/14/2018 BAILEE URIBE MD, Ot 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 01/21/2018 BAILEE URIBE MD, Ot I50.9 HEART FAILURE, UNSPECIFIED 01/21/2018 BAILEE URIBE MD, Ot I87.321 CHRONIC VENOUS HYPERTENSION W INFLAMMATI 01/21/2018 BAILEE URIBE MD, Ot I87.332 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 01/21/2018 BAILEE URIBE MD, Ot I89.0 LYMPHEDEMA, NOT ELSEWHERE CLASSIFIED 01/21/2018 BAILEE URIBE MD, Ot 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 01/27/2018 GUILLE DEAN MD, Ot Z12.31 ENCNTR SCREEN MAMMOGRAM FOR MALIGNANT NE 02/01/2018 GUILLE DEAN MD, Ot Z12.31 ENCNTR SCREEN MAMMOGRAM FOR MALIGNANT NE 02/17/2018 GUILLE DEAN MD, Ot Z12.31 ENCNTR SCREEN MAMMOGRAM FOR MALIGNANT NE Procedures There is no data. Results Test Result Range Automated blood complete blood count (hemogram) panel - 06/03/17 11:38 Blood leukocytes automated count (number/volume) 3.4 10*3/uL 4.3-11.0 Blood erythrocytes automated count (number/volume) 4.60 10*6/uL 4.35-5.85 Venous blood hemoglobin measurement (mass/volume) 14.1 g/dL 11.5-16.0 Blood hematocrit (volume fraction) 43 % 35-52 Automated erythrocyte mean corpuscular volume 94 [foz_us] 80-99 Automated erythrocyte mean corpuscular hemoglobin (mass per erythrocyte) 31 pg 25-34 Automated erythrocyte mean corpuscular hemoglobin concentration measurement ( mass/volume) 33 g/dL 32-36 Automated erythrocyte distribution width ratio 14.8 % 10.0-14.5 Automated blood platelet count (count/volume) 56 10*3/uL 130-400 Automated blood platelet mean volume measurement 11.5 [foz_us] 7.4-10.4 PT panel in platelet poor plasma by coagulation assay - 06/03/17 11:38 Prothrombin time (PT) in platelet poor plasma by coagulation assay 15.1 s 12.2-14.7 INR in platelet poor plasma or blood by coagulation assay 1.2 0.8-1.4 Activated partial thromboplastin time (aPTT) in platelet poor plasma bycoagulation assay - 06/03/17 11:38 Activated partial thromboplastin time (aPTT) in platelet poor plasma bycoagulation assay 33 s 24-35 Comprehensive metabolic panel - 06/03/17 11:38 Serum or plasma sodium measurement (moles/volume) 140 mmol/L 135-145 Serum or plasma potassium measurement (moles/volume) 4.1 mmol/L 3.6-5.0 Serum or plasma chloride measurement (moles/volume) 102 mmol/L 98-107 Carbon dioxide 29 mmol/L 21-32 Serum or plasma anion gap determination (moles/volume) 9 mmol/L 5-14 Serum or plasma urea nitrogen measurement (mass/volume) 14 mg/dL 7-18 Serum or plasma creatinine measurement (mass/volume) 0.70 mg/dL 0.60-1.30 Serum or plasma urea nitrogen/creatinine mass ratio 20 NRG Serum or plasma creatinine measurement with calculation of estimated glomerular filtration rate > NRG Serum or plasma glucose measurement (mass/volume) 136 mg/dL 70-105 Serum or plasma calcium measurement (mass/volume) 9.4 mg/dL 8.5-10.1 Serum or plasma total bilirubin measurement (mass/volume) 1.7 mg/dL 0.1-1.0 Serum or plasma alkaline phosphatase measurement (enzymatic activity/volume) 104 U/L 40-136 Serum or plasma aspartate aminotransferase measurement (enzymatic activity/ volume) 39 U/L 5-34 Serum or plasma alanine aminotransferase measurement (enzymatic activity/volume ) 24 U/L 0-55 Serum or plasma protein measurement (mass/volume) 6.8 g/dL 6.4-8.2 Serum or plasma albumin measurement (mass/volume) 4.3 g/dL 3.2-4.5 Lipid 1996 panel - 06/03/17 11:38 Serum or plasma triglyceride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
[2018-02-23 10:44] LABS: INR 1.4 (0.8-1.4)
--- NOTE | 2018-02-23 10:44 | ED General ---
General Chief Complaint: Fever-Adult/Adol Stated Complaint: DECREASED MOBILITY Nursing Triage Note: PT TRANSPRTED TO ER 6 [facility]. PT HEALTH AND SAFETY TRAINER INSTRUCTED TO CALL FOR EMS PT WEAK AND COULD NOT GET UP. FEELING WEAK FOR A COUPLE DAYS WITH PAIN IN BACK AND LEGS. "LYMPHEDEMA" REPORTED BY PT AND NOTED IN LOWER EXTREMITIES. Nursing Sepsis Screen: Possible Sepsis Risk Source of Information: Patient Exam Limitations: No Limitations History of Present Illness Date Seen by Provider: Feb 23, 2018 Time Seen by Provider: 10:12 Initial Comments Here by EMS with report of feeling weak that is worsening over the past couple days and unable to get up today. Arrives febrile and weak with normal blood pressure. States she is unable to get up because of the weakness today. Does have history of lymphedema and is being treated for that as well as a variety of other medical conditions. Her primary care doctor is Dr. Walker. Denies vomiting, diarrhea or dysuria. States that she is drinking okay but eating less. Timing/Duration: 2-3 Days, Getting Worse Severity: Moderate, Severe Associated Systoms: No Chest Pain, No Cough; Fever/Chills, Loss of Appetite; No Nausea/Vomiting, No Shortness of Air; Weakness Allergies and Home Medications Allergies Coded Allergies: Sulfa (Sulfonamide Antibiotics) (Verified Allergy, Unknown, 11/06/17) Home Medications Cholecalciferol (Vitamin D3) 2,000 Unit Capsule, 2,000 UNIT PO HS, (Reported) Docusate Sodium 100 Mg Capsule, 100 MG PO HS, (Reported) L.acidoph & Paracasei,B.lactis 1 Each Capsule, 1 CAP PO HS, (Reported) Levothyroxine Sodium 200 Mcg Tablet, 200 MCG PO DAILY, (Reported) Minocycline HCl 50 Mg Tablet, 50 MG PO TuFr, (Reported) Nadolol 20 Mg Tablet, 10 MG PO DAILY, (Reported) TAKES 1/2 (20MG) TABLET Oxycodone HCl 10 Mg Tablet, 10 MG PO BID, (Reported) Spironolactone 50 Mg Tablet, 50 MG PO DAILY, (Reported) Vit A/C/E/Zinc/Co 1 Cap Capsule, 1 CAP PO BID, (Reported) Patient Home Medication List Home Medication List Reviewed: Yes Review of Systems Constitutional: see HPI; No chills; fever, weakness EENTM: no symptoms reported Respiratory: no symptoms reported; No cough; short of breath Cardiovascular: No chest pain; edema Gastrointestinal: No abdominal pain, No nausea, No vomiting Genitourinary: no symptoms reported Musculoskeletal: no symptoms reported All Other Systems Reviewed Negative Unless Noted: Yes Past Jsojhbo-Zpjyou-Irpyrg Hx Past Med/Social Hx: Reviewed Nursing Past Med/Soc Hx Patient Social History Alcohol Use: Denies Use Recreational Drug Use: No Smoking Status: Former Smoker Type Used: Cigarettes Former Smoker, Quit: Jun 03, 1990 2nd Hand Smoke Exposure: No Recent Foreign Travel: No Contact w/Someone Who Travel: No Recent Infectious Disease Expo: No Recent Hopitalizations: No Immunizations Up To Date Tetanus Booster (TDap): Unknown Date of Pneumonia Vaccine: Jul 11, 2014 Date of Influenza Vaccine: Apr 08, 2017 Seasonal Allergies Seasonal Allergies: No Past Medical History Surgeries: Yes (RIGHT RCR, MULTI SKIN LESIONS REMOVED, LOWER BACK FUSION, LEFT MASTECTOMY, ) Respiratory: Yes (CPAP) Sleep Apnea Cardiac: No High Cholesterol Neurological: No Reproductive Disorders: No Sexually Transmitted Disease: No Genitourinary: No Gastrointestinal: Yes (polyp removed from colon) Liver Disease/Jaundice, Cirrhosis Musculoskeletal: Yes (arthritis) Arthritis Endocrine: Yes Hypothyroidsim HEENT: No (PRIOR CATARACT SURGERY) Cataract Cancer: Yes Breast Psychosocial: Yes Depression Integumentary: Yes (SKIN CANCER REMOVAL AREAS, LYMPHEDEMA LOWER EXT) Recent Skin Changes Blood Disorders: Yes (anemia, leukopenia and thrombocytopenia) Family Medical History Reviewed Nursing Family Hx No Pertinent Family Hx Physical Exam-Suspected Sepsis Physical Exam Vital Signs Vital Signs - First Documented 02/23/18 10:08 Temp 100.6 Pulse 98 Resp 25 B/P (MAP) 117/65 (82) Pulse Ox 96 O2 Delivery Room Air Capillary Refill : Less Than 3 Seconds Blood Pressure Mean: 82 Height, Weight, BMI Height: 5'0" Weight: 126lbs. 2.0oz. 57.168654ps; 26.3 BMI Method:Stated General Appearance: No Apparent Distress, Chronically ill, Thin HEENT: PERRL/EOMI, Pharynx Normal Neck: Non Tender, Supple Respiratory: Lungs Clear, Normal Breath Sounds Cardiovascular: No Murmur, Tachycardia Gastrointestinal: Non Tender, Soft Back: Normal Inspection, No CVA Tenderness, No Vertebral Tenderness Extremity: Normal Capillary Refill, Pedal Edema (3+ bilateral lower extremities to the level just below the knee.), Pelvis Stable Neurologic/Psychiatric: Alert, Oriented x3 Skin: normal color, warm/dry; No rash, No ulcerations Focused Exam Lactate Level 02/23/18 10:12: Lactic Acid Level 1.14 Lactic Acid Level Laboratory Tests Test 02/23/18 10:12 Lactic Acid Level 1.14 MMOL/L (0.50-2.00) Progress/Results/Core Measures Suspected Sepsis Recent Fever Within 48 Hours: Yes Infection Criteria Present: Suspected New Infection New/Unexplained Altered Menta: No Sepsis Screen: Possible Sepsis Risk SIRS Temperature:100.6 Pulse: 98 Respiratory Rate: 25 Laboratory Tests 02/23/18 10:12: White Blood Count 6.0 Blood Pressure 117 /65 Mean: 82 02/23/18 10:12: Lactic Acid Level 1.14 Laboratory Tests 02/23/18 10:12: Creatinine 0.58L, INR Comment 1.4, Platelet Count 53L, Total Bilirubin 2.9H Results/Orders Lab Results Laboratory Tests Test 02/23/18 10:12 Range/Units White Blood Count 6.0 4.3-11.0 10^3/uL Red Blood Count 4.16 L 4.35-5.85 10^6/uL Hemoglobin 13.0 11.5-16.0 G/DL Hematocrit 39 35-52 % Mean Corpuscular Volume 93 80-99 FL Mean Corpuscular Hemoglobin 31 25-34 PG Mean Corpuscular Hemoglobin Concent 34 32-36 G/DL Red Cell Distribution Width 16.0 H 10.0-14.5 % Platelet Count 53 L 130-400 10^3/uL Mean Platelet Volume 11.9 H 7.4-10.4 FL Neutrophils (%) (Auto) 84 H 42-75 % Lymphocytes (%) (Auto) 9 L 12-44 % Monocytes (%) (Auto) 7 0-12 % Eosinophils (%) (Auto) 0 0-10 % Basophils (%) (Auto) 0 0-10 % Neutrophils # (Auto) 5.0 1.8-7.8 X 10^3 Lymphocytes # (Auto) 0.6 L 1.0-4.0 X 10^3 Monocytes # (Auto) 0.4 0.0-1.0 X 10^3 Eosinophils # (Auto) 0.0 0.0-0.3 10^3/uL Basophils # (Auto) 0.0 0.0-0.1 10^3/uL Prothrombin Time 17.0 H 12.2-14.7 SEC INR Comment 1.4 0.8-1.4 Activated Partial Thromboplast Time 35 24-35 SEC Urine Color YELLOW Urine Clarity CLEAR Urine pH 6 5-9 Urine Specific [place] 1.015 L 1.016-1.022 Urine Protein 1+ H NEGATIVE Urine Glucose (UA) NEGATIVE NEGATIVE Urine Ketones 1+ H NEGATIVE Urine Nitrite NEGATIVE NEGATIVE Urine Bilirubin NEGATIVE NEGATIVE Urine Urobilinogen 1 NORMAL MG/DL Urine Leukocyte Esterase NEGATIVE NEGATIVE Urine RBC (Auto) NEGATIVE NEGATIVE Urine RBC RARE /HPF Urine WBC NONE /HPF Urine Squamous Epithelial Cells NONE /HPF Urine Crystals NONE /LPF Urine Bacteria NEGATIVE /HPF Urine Casts NONE /LPF Urine Mucus NEGATIVE /LPF Urine Culture Indicated NO Sodium Level 137 135-145 MMOL/L Potassium Level 4.3 3.6-5.0 MMOL/L Chloride Level 103 98-107 MMOL/L Carbon Dioxide Level 26 21-32 MMOL/L Anion Gap 8 5-14 MMOL/L Blood Urea Nitrogen 14 7-18 MG/DL Creatinine 0.58 L 0.60-1.30 MG/DL Estimat Glomerular Filtration Rate > 60 BUN/Creatinine Ratio 24 Glucose Level 140 H 70-105 MG/DL Lactic Acid Level 1.14 0.50-2.00 MMOL/L Calcium Level 9.4 8.5-10.1 MG/DL Total Bilirubin 2.9 H 0.1-1.0 MG/DL Aspartate Amino Transf (AST/SGOT) 42 H 5-34 U/L Alanine Aminotransferase (ALT/SGPT) 23 0-55 U/L Alkaline Phosphatase 94 40-136 U/L Total Protein 5.7 L 6.4-8.2 GM/DL Albumin 3.9 3.2-4.5 GM/DL My Orders Orders - RIKY SERNA MD Cbc With Automated Diff (02/23/18 10:16) Comprehensive Metabolic Panel (02/23/18 10:16) Lactic Acid Analyzer (02/23/18 10:16) Blood Culture (02/23/18 10:16) Sputum Culture (02/23/18 10:16) Ua Culture If Indicated (02/23/18 10:16) Protime With Inr (02/23/18 10:16) Partial Thromboplastin Time (02/23/18 10:16) Chest 1 View, Ap/Pa Only (02/23/18 10:16) O2 (02/23/18 10:16) Saline Lock/Iv-Start (02/23/18 10:16) Vital Signs Adult Sepsis Patie Q15M (02/23/18 10:16) Remove Rings In Anticipation O (02/23/18 10:16) Catheter(Urinary) Insert & Ass 03,15 (02/23/18 10:16) Ns Iv 500 Ml (Sodium Chloride 0.9%) (02/23/18 10:16) Ceftriaxone Injection (Rocephin Injectio (02/23/18 11:15) Medications Given in ED Current Medications Medications Dose Ordered Sig/Evelio Route Start Time Stop Time Status Last Admin Dose Admin Sodium Chloride 500 ml @ 0 mls/hr Q0M ONCE IV 02/23/18 10:16 02/23/18 10:19 DC 02/23/18 10:29 999 MLS/HR Vital Signs/I&O 02/23/18 02/23/18 10:08 10:45 Temp 100.6 99.7 Pulse 98 101 Resp 25 24 B/P (MAP) 117/65 (82) 119/64 (82) Pulse Ox 96 94 O2 Delivery Room Air Room Air Capillary Refill : Less Than 3 Seconds Blood Pressure Mean: 82 Progress Note : Progress Note Seen and evaluated. IV, labs, blood cultures, chest x-ray, UA and lactic acid ordered. Normal saline 500 mL bolus ordered. Monitor patient. 1059: Initiated admission with Dr. Walker. Patient has right lower lobe pneumonia. Blood pressure stable at this point at 119/64 with heart rate of 101 and O2 sat 96 percent on room air. 1105: I have discussed the case with Dr. Walker and she says patient for admission. We will initiate Rocephin and azithromycin. Admit, inpatient status. Patient agrees with plan. Diagnostic Imaging Diagonstic Imaging: Xray Plain Films/CT/US/NM/MRI: chest Comments VIA [facility], [facility]. [place], [place] NAME: DEV MALDONADO [facility] REC#: [id number] PT STATUS: REG ER : 1935 PHYSICIAN: RIKY SERNA MD ADMIT DATE: 02/23/18/ER Draft Date of Exam:02/23/18 CHEST 1 VIEW, AP/PA ONLY Indication: Decreased mobility and fever. Comparison: 07/27/2014 Findings: Upright portable view of the chest is obtained. Heart size is normal. The pulmonary vessels appear unremarkable. There is no pneumothorax, mediastinal widening or pleural fluid. There is some subtle new patchy airspace disease at the right lung base. The left lung is clear. Impression: Suspect developing subtle right lower lobe pneumonia. Short-term followup study is recommended. Dictated on workstation # [id number] Dict: 02/23/18 1035 Trans: 02/23/18 1040 [facility] [id number] Interpreted by: CRYSTAL RUIZ DO Electronically signed by: Departure Communication (Admissions) Time/Spoke to Admitting Phy: 11:05 Impression Primary Impression: Right lower lobe pneumonia Qualified Codes: J18.1 - Lobar pneumonia, unspecified organism Disposition: ADMITTED INPATIENT Condition: Stable Admissions Decision to Admit Reason: Admit from ER (General) Decision to Admit/Date: Feb 23, 2018 Time/Decision to Admit Time: 11:05 Departure-Patient Inst. Referrals: CHRISTOPHER WALKER MD (PCP/Family) Primary Care Physician RIKY SERNA MD Feb 23, 2018 10:44
[2018-02-23 10:45] VITALS: BP 119/64
[2018-02-23 10:48] LABS: ALANINE AMINOTRANSFERASE 23 U/L (0-55); ALBUMIN 3.9 GM/DL (3.2-4.5); ALKALINE PHOSPHATASE 94 U/L (40-136); BILIRUBIN,TOTAL 2.9 MG/DL (0.1-1.0); BUN/CREATININE RATIO 24; CALCIUM 9.4 MG/DL (8.5-10.1); CARBON DIOXIDE 26 MMOL/L (21-32); CHLORIDE 103 MMOL/L (98-107); CREATININE SERUM 0.58 MG/DL (0.60-1.30); GFR ESTIMATED > 60; GLUCOSE 140 MG/DL (70-105); POTASSIUM 4.3 MMOL/L (3.6-5.0); SODIUM 137 MMOL/L (135-145); TOTAL PROTEIN 5.7 GM/DL (6.4-8.2)
[2018-02-23] MEDS ORDERED: cefTRIAXone INJECTION 1,000 MG in NS (IVPB) 50 ML IV ONE (11:15)
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
[2018-02-23] MEDS ORDERED: ONDANSETRON 4 MG/2 ML (SDV) Z0FRAN ONE (12:06)
[2018-02-23] MEDS ORDERED: ONDANSETRON 4 MG/2 ML (SDV) Z0FRAN IVP ONE (12:15)
[2018-02-23 12:25] VITALS: BP 116/56
[2018-02-23] MEDS ORDERED: CATHETER FLUSH 10 ML SYR IV PRN (13:00)
[2018-02-23] MEDS ORDERED: AZITHROMYCIN 500 MG/NS 250 ML IVPB IV SCH ×2 (13:00)
[2018-02-23 13:15] LABS: BASOPHILS % (AUTO) 0 % (0-10); EOSINOPHILS % (AUTO) 0 % (0-10); HEMATOCRIT 38 % (35-52); HEMOGLOBIN 12.7 G/DL (11.5-16.0); LYMPHOCYTES # (AUTO) 0.6 X 10^3 (1.0-4.0); LYMPHOCYTES % (AUTO) 9 % (12-44); MEAN CORPUSCULAR HEMOGLOBIN 31 PG (25-34); MEAN CORPUSCULAR HGB CONC 33 G/DL (32-36); MEAN CORPUSCULAR VOLUME 94 FL (80-99); MEAN PLATELET VOLUME 11.1 FL (7.4-10.4); MONOCYTES # (AUTO) 0.3 X 10^3 (0.0-1.0); MONOCYTES % (AUTO) 5 % (0-12); NEUTROPHILS # (AUTO) 5.3 X 10^3 (1.8-7.8); NEUTROPHILS % (AUTO) 85 % (42-75); PLATELET COUNT 42 10^3/uL (130-400); RED CELL DISTRIBUTION WIDTH 16.1 % (10.0-14.5); WHITE BLOOD COUNT 6.2 10^3/uL (4.3-11.0)
[2018-02-23] MEDS ORDERED: LEVO88TA54 PO (13:33)
[2018-02-23] MEDS ORDERED: LEVO100T7 PO (13:33)
[2018-02-23] MEDS ORDERED: CYCL1DRO OU (13:33)
[2018-02-23] MEDS ORDERED: OXYC10TA7 PO (13:33)
[2018-02-23] MEDS: NS IV 1000 ML 1,000 ML IV SCH (13:37)
[2018-02-23] MEDS ORDERED: ACETAMINOPHEN 325 MG TABLET PO PRN (14:45)
[2018-02-23 16:50] VITALS: BP 98/58
[2018-02-23] MEDS: IBUPROFEN 600 MG (MOTRIN) TAB PO PRN (17:06)
--- NOTE | 2018-02-23 19:56 | History & Physicial ---
History of Present Illness History of Present Illness Reason for visit/HPI PT IS AN 82 Y/O FEMALE WHO IS WELL KNOWN TO ME FROM CLINIC. SHE PRESENTED TO THE EMERGENCY DEPARTMENT AFTER HAVING FALLEN WHEN TRYING TO GET OUT OF BED AND LYING ON THE FLOOR FOR OVER 4 HOURS WAITING UNTIL HER PAID HELPER - MICHELLE - WAS ABLE TO COME OVER TO HELP HER UP OFF OF THE FLOOR. SHE REPORTS THAT SHE STARTED TO FEEL POORLY THIS WEEKEND, WITH FEVERISH PERIODS OF TIME AND FINALLY DECIDED TO COME TO THE HOSPITAL AFTER SHE WAS TOO WEAK TO GET UP OFF OF THE FLOOR AND SHE HAS HAVING FEVERS/CHILLS. Date of Admission Feb 23, 2018 at 11:05 Date Seen by Provider: Feb 23, 2018 Time Seen by Provider: 19:20 I consulted on this patient on 02/23/18 19:51 Attending Physician Christopher Barron MD Admitting Physician Christopher Barron MD Consult Allergies and Home Medications Allergies Coded Allergies: Sulfa (Sulfonamide Antibiotics) (Verified Allergy, Unknown, 02/23/18) Home Medications Cholecalciferol (Vitamin D3) 2,000 Unit Capsule, 2,000 UNIT PO HS, (Reported) Cyclosporine 1 Each Droperette, 1 DROP OU BID, (Reported) Docusate Sodium 100 Mg Capsule, 100 MG PO HS, (Reported) Levothyroxine Sodium 100 Mcg Tablet, 100 MCG PO DAILY, (Reported) TAKES ALONG WITH 88MCG TABLET Levothyroxine Sodium 88 Mcg Tablet, 88 MCG PO DAILY, (Reported) TAKES ALONG WITH 100MCG TABLET Nadolol 20 Mg Tablet, 10 MG PO DAILY, (Reported) TAKES 1/2 (20MG) TABLET Oxycodone HCl 10 Mg Tablet, 10 MG PO BID, (Reported) Oxycodone HCl 10 Mg Tablet, 10 MG PO BID PRN for PAIN-SEVERE, (Reported) Spironolactone 50 Mg Tablet, 50 MG PO DAILY, (Reported) Vit A/C/E/Zinc/Co 1 Cap Capsule, 1 CAP PO BID, (Reported) Patient Home Medication List Home Medication List Reviewed: Yes Past Dbswpdp-Ybapcu-Ooujdw Hx Patient Social History Marrital Status: single Living Status: LIVES IN HOME ALONE 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, 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 [employer]) Alcohol Use: Denies Use Recreational Drug Use: No Smoking Status: Former Smoker Former Smoker, Quit: Jun 03, 1990 Type Used: Cigarettes 2nd Hand Smoke Exposure: No Physical Abuse Screen: No Sexual Abuse: No Recent Foreign Travel: No Contact w/other who traveled: No Recent Hopitalizations: No Recent Infectious Disease Expo: No Immunizations Up To Date Tetanus Booster (TDap): Unknown Date of Pneumonia Vaccine: Jul 11, 2014 Date of Influenza Vaccine: Apr 08, 2017 Seasonal Allergies Seasonal Allergies: No Surgeries Yes (RIGHT RCR, MULTI SKIN LESIONS REMOVED, LOWER BACK FUSION, LEFT MASTECTOMY, ) Respiratory Yes (CPAP) Cardiovascular Yes High Cholesterol Neurological No Reproductive System Hx Reproductive Disorders: No Sexually Transmitted Disease: No Genitourinary No Gastrointestinal Yes (polyp removed from colon) Liver Disease/Jaundice, Cirrhosis Musculoskeletal Yes (arthritis) Arthritis Endocrine History of Endocrine Disorders: Yes Endocrine Disorders: Hypothyroidsim HEENT History of HEENT Disorders: No (PRIOR CATARACT SURGERY) HEENT Disorders: Cataract Cancer Yes (LYMPHADEMA) Breast Cancer Comment: SQUAMOUS CELL CARCINOMA, BREAST/SKIN CA Psychosocial History of Psychiatric Problem: Yes Behavioral Health Disorders: Depression Integumentary History of Skin or Integumenta: Yes (SKIN CANCER REMOVAL AREAS, LYMPHEDEMA LOWER EXT) Skin/Integumentary Disorders: Recent Skin Changes Blood Transfusions History of Blood Disorders: Yes (anemia, leukopenia and thrombocytopenia) Reviewed Nursing Assessment Reviewed/Agree w Nursing PMH: Yes Family Medical History Significant Family History: No Pertinent Family Hx Family Hx: Patient reports no known family medical history. Constitutional: chills, fever, weakness EENTM: other (DRY MOUTH); No hoarseness, No throat pain Respiratory: cough, dyspnea on exertion, short of breath Cardiovascular: No chest pain, No palpitations Gastrointestinal: No abdominal pain, No constipation, No diarrhea, No nausea, No vomiting Genitourinary: incontinence; No pain Musculoskeletal: joint pain (KNEE PAIN) Skin: lesions (ECCHYMOSIS ON FACE, ARMS); No rash Psychiatric/Neurological: Denies Anxiety, Denies Depressed; Weakness All Other Systems Reviewed Negative Unless Noted: Yes Physical Exam Vital Signs Vital Signs - First Documented 02/23/18 02/23/18 10:08 16:50 Temp 100.6 Pulse 98 Resp 25 B/P (MAP) 117/65 (82) Pulse Ox 96 O2 Delivery Room Air O2 Flow Rate 1.00 Capillary Refill : Less Than 3 Seconds Height, Weight, BMI Height: 5'0.00" Weight: 129lbs. 0.0oz. 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 CONTINUE WITH ANTIBIOTICS, CHECK CHEST XRAY TOMORROW, MONITOR SYMPTOMS. LYMPHEDEMA - SCD'S TODAY- MONITOR I/O CLOSELY, MOYA IN PLACE, WILL USE COMPRESSION ON PATIENT FROM LYMPHEDEMA SPECIALIST UPON DISCHARGE. HYPOTHYROID - RESUME LEVOTHYROXINE. CHRONIC PAIN SYNDROME - RESUME HOME REGIMEN OF PRN OXYCODONE. WEAKNESS - START PHYSICAL THERAPY TOMORROW. FALLING EPISODES - START PHYSICAL THERAPY - WILL NEED SNF CARE ON DISCHARGE. THROMBOCYTOPENIA - MONITOR LABS HYPERBILIRUBINEMIA - CHECK CMP TOMORROW. Admission Diagnosis PNEUMONIA SIMPLE SEPSIS LYMPHEDEMA HYPOTHYROID CHRONIC PAIN SYNDROME WEAKNESS FALLING EPISODES THROMBOCYTOPENIA HYPERBILIRUBINEMIA Admission Status: Inpatient Order (span 2 midnights) Reason for Inpatient Admission: PT TO BE HOSPITALIZED MORE THAN 2 MIDNIGHTS FOR STABILIZATION OF SYMPTOMS, MONITORING OF CHEST XRAY, START OF THERAPY AND THEN PLANNING ON TRANSFER TO SENIOR CARE FOR CONTINUED THERAPY. Clinical Quality Measures DVT/VTE Risk/Contraindication: Risk Factor Score Per Nursin RFS Level Per Nursing on Admit: 4+=Very High CHRISTOPHER BARRON MD Feb 23, 2018 19:56
[2018-02-23] MEDS ORDERED: SALIVA STIMULANT MOUTH SPRAY (BIOTENE) 1.5 OZ MM PRN (20:00)
[2018-02-23 20:39] VITALS: BP 90/50
[2018-02-23 21:10] VITALS: BP 122/64
[2018-02-23] MEDS: ARTIFICAL TEARS 0.4 ML UNIT DOSE (REFRESH PLUS) OU SCH (21:27)
[2018-02-24] VITALS (9 sets, daily range): BP systolic 82–118; BP diastolic 44–63
[2018-02-24] MEDS: NS IV 1000 ML 1,000 ML IV SCH ×3 (02:34→23:18)
[2018-02-24 05:22] LABS: BASOPHILS % (AUTO) 0 % (0-10); EOSINOPHILS % (AUTO) 0 % (0-10); HEMATOCRIT 33 % (35-52); HEMOGLOBIN 11.2 G/DL (11.5-16.0); LYMPHOCYTES # (AUTO) 1.1 X 10^3 (1.0-4.0); LYMPHOCYTES % (AUTO) 18 % (12-44); MEAN CORPUSCULAR HEMOGLOBIN 32 PG (25-34); MEAN CORPUSCULAR HGB CONC 34 G/DL (32-36); MEAN CORPUSCULAR VOLUME 94 FL (80-99); MEAN PLATELET VOLUME 10.6 FL (7.4-10.4); MONOCYTES # (AUTO) 0.5 X 10^3 (0.0-1.0); MONOCYTES % (AUTO) 8 % (0-12); NEUTROPHILS # (AUTO) 4.6 X 10^3 (1.8-7.8); NEUTROPHILS % (AUTO) 74 % (42-75); RED BLOOD COUNT 3.53 10^6/uL (4.35-5.85); RED CELL DISTRIBUTION WIDTH 16.5 % (10.0-14.5); WHITE BLOOD COUNT 6.3 10^3/uL (4.3-11.0)
[2018-02-24 05:25] LABS: PLATELET COUNT 36 10^3/uL (130-400)
[2018-02-24 05:38] LABS: ALANINE AMINOTRANSFERASE 22 U/L (0-55); ALBUMIN 3.1 GM/DL (3.2-4.5); ALKALINE PHOSPHATASE 68 U/L (40-136); BILIRUBIN,TOTAL 2.5 MG/DL (0.1-1.0); BUN/CREATININE RATIO 27; CALCIUM 8.2 MG/DL (8.5-10.1); CARBON DIOXIDE 23 MMOL/L (21-32); CHLORIDE 106 MMOL/L (98-107); CREATININE SERUM 0.75 MG/DL (0.60-1.30); GFR ESTIMATED > 60; GLUCOSE 116 MG/DL (70-105); POTASSIUM 3.8 MMOL/L (3.6-5.0); SODIUM 138 MMOL/L (135-145); TOTAL PROTEIN 4.2 GM/DL (6.4-8.2)
[2018-02-24] MEDS: LEVOTHYROXINE 100 MCG (LEVOTHROID) TAB PO SCH (07:02)
[2018-02-24] MEDS: MULTIVIT W/MINERALS TAB (THERAGRAN M) PO SCH (07:02)
[2018-02-24] MEDS: LEVOTHYROXINE 88 MCG (LEVOTHORID) TAB PO SCH (07:02)
--- NOTE | 2018-02-24 08:40 | Progress Note ---
Subjective Date Seen by Provider: Feb 24, 2018 Time Seen by Provider: 08:40 Subjective/Events-last exam PT REPORTS THAT SHE IS FEELING A LITTLE BIT BETTER TODAY. SHE REPORTS THAT HER SHORTNESS OF BREATH IS IMPROVED. SHE DENIES ABDOMINAL PAIN, NAUSEA. SHE DENIES CHEST PAIN. Review of Systems General: Fatigue, Malaise HEENT: No Head Aches Pulmonary: No Dyspnea, No Cough Cardiovascular: No: Chest Pain Gastrointestinal: No: Nausea Musculoskeletal: leg pain Neurological: Weakness; No: Confusion Focused Exam Lactate Level 02/23/18 10:12: Lactic Acid Level 1.14 Objective Exam Last Set of Vital Signs Vital Signs Date Time Temp Pulse Resp B/P (MAP) Pulse Ox O2 Delivery O2 Flow Rate FiO2 02/24/18 04:05 97.7 02/24/18 04:00 72 18 82/53 (63) 95 Room Air 02/23/18 20:39 1.00 Capillary Refill : Less Than 3 SecondsLess Than 3 Seconds I&O Intake and Output 02/24/18 00:00 Intake Total 600 ml Output Total 660 ml Balance -60 ml Intake Oral 50 ml IV Total 550 ml Output Urine Total 660 ml Daily Weight Change Unsure General: Alert, Oriented X3, Cooperative HEENT: Atraumatic Lungs: Clear to Auscultation Heart: Regular Rate Abdomen: Normal Bowel Sounds, Soft Skin: No Rashes, Other (CHRONIC WOUND ON SCALP) Psych/Mental Status: Mental Status NL, Mood NL Results Lab Laboratory Tests 02/23/18 10:12: White Blood Count 6.0, Red Blood Count 4.16L, Hemoglobin 13.0, Hematocrit 39, Mean Corpuscular Volume 93, Mean Corpuscular Hemoglobin 31, Mean Corpuscular Hemoglobin Concent 34, Red Cell Distribution Width 16.0H, Platelet Count 53L, Mean Platelet Volume 11.9H, Neutrophils (%) (Auto) 84H, Lymphocytes (%) (Auto) 9L, Monocytes (%) (Auto) 7, Eosinophils (%) (Auto) 0, Basophils (%) (Auto) 0, Neutrophils # (Auto) 5.0, Lymphocytes # (Auto) 0.6L, Monocytes # (Auto) 0.4, Eosinophils # (Auto) 0.0, Basophils # (Auto) 0.0, Prothrombin Time 17.0H, INR Comment 1.4, Activated Partial Thromboplast Time 35, Urine Color YELLOW, Urine Clarity CLEAR, Urine pH 6, Urine Specific [place] 1.015L, Urine Protein 1+H, Urine Glucose (UA) NEGATIVE, Urine Ketones 1+H, Urine Nitrite NEGATIVE, Urine Bilirubin NEGATIVE, Urine Urobilinogen 1, Urine Leukocyte Esterase NEGATIVE, Urine RBC (Auto) NEGATIVE, Urine RBC RARE, Urine WBC NONE, Urine Squamous Epithelial Cells NONE, Urine Crystals NONE, Urine Bacteria NEGATIVE, Urine Casts NONE, Urine Mucus NEGATIVE, Urine Culture Indicated NO, Sodium Level 137, Potassium Level 4.3, Chloride Level 103, Carbon Dioxide Level 26, Anion Gap 8, Blood Urea Nitrogen 14, Creatinine 0.58L, Estimat Glomerular Filtration Rate > 60, BUN/Creatinine Ratio 24, Glucose Level 140H, Lactic Acid Level 1.14, Calcium Level 9.4, Total Bilirubin 2.9H, Aspartate Amino Transf (AST/SGOT) 42H, Alanine Aminotransferase (ALT/SGPT) 23, Alkaline Phosphatase 94, Total Protein 5.7L, Albumin 3.9 02/23/18 13:10: White Blood Count 6.2, Red Blood Count 4.10L, Hemoglobin 12.7, Hematocrit 38, Mean Corpuscular Volume 94, Mean Corpuscular Hemoglobin 31, Mean Corpuscular Hemoglobin Concent 33, Red Cell Distribution Width 16.1H, Platelet Count 42L, Mean Platelet Volume 11.1H, Neutrophils (%) (Auto) 85H, Lymphocytes (%) (Auto) 9L, Monocytes (%) (Auto) 5, Eosinophils (%) (Auto) 0, Basophils (%) (Auto) 0, Neutrophils # (Auto) 5.3, Lymphocytes # (Auto) 0.6L, Monocytes # (Auto) 0.3, Eosinophils # (Auto) 0.0, Basophils # (Auto) 0.0 02/24/18 05:00: White Blood Count 6.3, Red Blood Count 3.53L, Hemoglobin 11.2L, Hematocrit 33L, Mean Corpuscular Volume 94, Mean Corpuscular Hemoglobin 32, Mean Corpuscular Hemoglobin Concent 34, Red Cell Distribution Width 16.5H, Platelet Count 36*L, Mean Platelet Volume 10.6H, Neutrophils (%) (Auto) 74, Lymphocytes (%) (Auto) 18 , Monocytes (%) (Auto) 8, Eosinophils (%) (Auto) 0, Basophils (%) (Auto) 0, Neutrophils # (Auto) 4.6, Lymphocytes # (Auto) 1.1, Monocytes # (Auto) 0.5, Eosinophils # (Auto) 0.0, Basophils # (Auto) 0.0, Sodium Level 138, Potassium Level 3.8, Chloride Level 106, Carbon Dioxide Level 23, Anion Gap 9, Blood Urea Nitrogen 20H, Creatinine 0.75, Estimat Glomerular Filtration Rate > 60, BUN/ Creatinine Ratio 27, Glucose Level 116H, Calcium Level 8.2L, Total Bilirubin 2.5H, Aspartate Amino Transf (AST/SGOT) 37H, Alanine Aminotransferase (ALT/SGPT ) 22, Alkaline Phosphatase 68, Total Protein 4.2L, Albumin 3.1L Assessment/Plan Assessment/Plan Assess & Plan/Chief Complaint PNEUMONIA SIMPLE SEPSIS LYMPHEDEMA HYPOTHYROID CHRONIC PAIN SYNDROME WEAKNESS FALLING EPISODES THROMBOCYTOPENIA HYPERBILIRUBINEMIA PNEUMONIA WITH SIMPLE SEPSIS - SYMPTOMS IMPROVED AFTER FLUIDS AND ANTIBIOTICS. CONTINUE WITH ANTIBIOTICS, CHECK CHEST XRAY SERIALLY, MONITOR SYMPTOMS. LYMPHEDEMA - SCD'S NOT TOLERATED BY PT- MONITOR I/O CLOSELY, WILL USE COMPRESSION ON PATIENT FROM LYMPHEDEMA SPECIALIST UPON DISCHARGE. HYPOTHYROID - RESUMED LEVOTHYROXINE. CHRONIC PAIN SYNDROME - RESUME HOME REGIMEN OF PRN OXYCODONE. WEAKNESS - STARTED PHYSICAL THERAPY. FALLING EPISODES - STARTED PHYSICAL THERAPY - WILL NEED SNF CARE ON DISCHARGE. THROMBOCYTOPENIA - MONITOR LABS - CONSULT WAS PLACED TO DR. DIANNE VINSONBILIRUBINEMIA - CHECK CMP - IT HAS IMPROVED FROM ADMISSION. Clinical Quality Measures Admission Status Admission Dx PNEUMONIA SIMPLE SEPSIS LYMPHEDEMA HYPOTHYROID CHRONIC PAIN SYNDROME WEAKNESS FALLING EPISODES THROMBOCYTOPENIA HYPERBILIRUBINEMIA DVT/VTE Risk/Contraindication: Risk Factor Score Per Nursin RFS Level Per Nursing on Admit: 4+=Very High Contraindications-Pharm: Other *list below* Other: PT HAS A PLT OF 42, LOVENOX CONTRAINDICATED DUE TO VERY HIGH RISK OF BLEEDING CHRISTOPHER WALKER MD Feb 24, 2018 08:40
[2018-02-24] MEDS: SPIRONOLACTONE 25 MG (ALDACTONE) TAB PO SCH (09:35)
[2018-02-24] MEDS: ARTIFICAL TEARS 0.4 ML UNIT DOSE (REFRESH PLUS) OU SCH ×2 (09:35→19:59)
[2018-02-24] MEDS: AZITHROMYCIN 250 MG TAB (ZITHROMAX) PO SCH (09:35)
[2018-02-24] MEDS: cefTRIAXone 1 GM/NS 50 ML IVPB IV SCH ×2 (09:36)
--- NOTE | 2018-02-24 09:36 | Diagnostic Imaging Report ---
INDICATION: Pneumonia. Comparison made with prior examination 02/23/2018. PA and lateral views were obtained. FINDINGS: The heart size, mediastinal configuration, and pulmonary vascularity are within normal limits. There is no pleural effusion, pneumothorax, or pneumonia. The osseous structures are unremarkable. IMPRESSION: No acute cardiopulmonary abnormality. Dictated by: Dictated on workstation # [id number]
[2018-02-24] MEDS ORDERED: BISACODYL 10 MG SUPP (DULCOLAX) PR ONE (09:45)
[2018-02-24] MEDS ORDERED: BISACODYL 10 MG SUPP (DULCOLAX) ONE (10:02)
--- NOTE | 2018-02-24 11:10 | Physical Therapy Evaluation ---
PT Evaluation-General Medical Diagnosis Admission Date Feb 23, 2018 at 11:05 Medical Diagnosis: RLL pneumonia Onset Date: Feb 23, 2018 Therapy Diagnosis Therapy Diagnosis: debility Height/Weight Height (Feet): 5 Height (Inches): 0.00 Weight (Pounds): 129 Weight (Ounces): 0.0 Precautions Precautions/Isolations: Fall Prevention, Standard Precautions Weight Bear Status Right Lower Extremity: Right Full Weight Bearing Left Lower Extremity: Left Full Weight Bearing Referral Physician: Beatrice Reason for Referral: Evaluation/Treatment Medical History Pertinent Medical History: Arthritis, COPD, Hypothroidism Additional Medical History breast cancer/lymphedema/liver disease Current History EMS secondary to weakness/bilateral LE edema/fall OOB to floor x 4 hours Reviewed History: Yes Social History Home: Single Level Current Living Status: Alone Prior/Core FIM Prior Level of Function Functional [place] Measure 0=Not Assessed/NA 4=Minimal Assistance 1=Total Assistance 5=Supervision or Setup 2=Maximal Assistance 6=Modified [place] 3=Moderate Assistance 7=Complete [place] Bed Mobility: 6 Transfers (B,C,W/C) (FIM): 6 Gait: 6 patient reports she does not utilize AD at home, furniture walks PT Evaluation-Current Subjective Patient agrees to PT. Pain Numeric Pain Scale: 0-No Pain Location: No Pain Reported Objective Patient Orientation: Person, Time, Situation Problem Solving: Poor Attachments: Jeffers Catheter, IV ROM/Strength ROM Lower Extremities bilateral LE WFL Strength Lower Extremities 3-/5 grossly bilateral LE Integumentary/Posture Integumentary refer to nursing notes Bladder Incontinence: Jeffers Cath Posture kyphotic, flexed bilateral knee posture Neuromuscular (Tone, Coordination, Reflexes) diminished coordination/proprioception Sensory Vision: Wears Glasses Hearing: Impaired Sensation Right Lower Extremit: Impaired Sensation Left Lower Extremity: Impaired Transfers Functional [place] Measure 0=Not Assessed/NA 4=Minimal Assistance 1=Total Assistance 5=Supervision or Setup 2=Maximal Assistance 6=Modified [place] 3=Moderate Assistance 7=Complete [place] Transfers (B, C, W/C) (FIM): 2 Scootin Rollin Supine to/from Sit: 2 Sit to/from Stand: 3 patient requires much encouragement to actively move. Patient prefers for PT to perform all mobility Gait Mode of Locomotion: Walk Anticipated Mode of Locomotion: Walk Gait (FIM): 2 Distance (FIM): 9=112-29 ft Distance: 125' Gait Level of Assist: 4 Gait Persons Needed: 1 Gait Assistive Device: FWW Comments/Gait Description NBOS/shuffle gait sequence/no foot clearance Balance Sitting Static: Fair Sitting Dynamic: Fair Standing Static: Fair Standing Dynamic: Fair Assessment/Needs 82 y.o. female, will be seen short term by skilled PT to address functional strength and mobility to improve current LOF. From a PT standpoint, patient would benefit from extended care facility to ensure functional strength and mobility are appropriate and safe for home. Rehab Potential: Fair PT Patient Resource Specialist Goals Skilled Nursing Goals PT Patient Resource Specialist Goals Time Frame: Feb 28, 2018 Transfers (B,C,W/C) (FIM): 4 Gait (FIM): 2 Gait distance (FIM): 3=987-22 ft Distance: 140' Gait Level of Assist: 5 Gait Assistive Device: FWW PT Plan Problem List Problem List: Activity Tolerance, Functional Strength, Safety, Balance, Gait, Transfer, Bed Mobility Treatment/Plan Treatment Plan: Continue Plan of Care Treatment Plan: Bed Mobility, Education, Functional Activity [place], Functional Strength, Gait, Safety, Therapeutic Exercise, Transfers Treatment Duration: Feb 28, 2018 Frequency: 5 times per week Estimated Hrs Per Day: .25 hour per day Patient and/or Family Agrees t: Yes Discharge Recommendations Therapy D/C Recommendations: Senior Living Placement, Custodial (TCU/NH) Time/GCodes Time In: 1015 Time Out: 1035 Total Billed Treatment Time: 20 Total Billed Treatment 1 visit EVModC 20 min G Codes Necessary: No LEIDA FRY PT Feb 24, 2018 11:10
--- NOTE | 2018-02-24 13:57 | Oncology Consultation ---
Visit Information Visit Information Date of Admission Feb 23, 2018 at 11:05 Attending Physician Alexandria Barron MD Admitting Physician Alexandria Barron MD Chief Complaint Thrombocytopenia, h/o breast cancer and skin squamous cell carcinoma. Interval History Ms. 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 She had fever chills and feeling poorly at home and fell on the floor, not able to get up for many hours until her paid helper arrived. When she was brought to ER, she was found to be hypotensive BP80/40s. CXR at ER showed some infiltration of the lung. She was treated with IV antibiotics and IVF. She is slightly better but still very tired. I consulted the patient on: 02/24/18 13:46 Time Seen by Provider: 13:47 Constitutional: malaise, weakness EENTM: see HPI Respiratory: see HPI Cardiovascular: see HPI Gastrointestinal: see HPI Musculoskeletal: muscle stiffness, muscle weakness Health Status Allergies Coded Allergies: Sulfa (Sulfonamide Antibiotics) (Verified Allergy, Unknown, 02/23/18) Home Medications Cholecalciferol (Vitamin D3) (Vitamin D3) 2,000 Unit Capsule, 2,000 UNIT PO HS, (Reported) Cyclosporine (Restasis) 1 Each Droperette, 1 DROP OU BID, (Reported) Docusate Sodium (Docusate Sodium) 100 Mg Capsule, 100 MG PO HS, (Reported) Levothyroxine Sodium (Levothyroxine Sodium) 100 Mcg Tablet, 100 MCG PO DAILY, ( Reported) TAKES ALONG WITH 88MCG TABLET Levothyroxine Sodium (Levothyroxine Sodium) 88 Mcg Tablet, 88 MCG PO DAILY, ( Reported) TAKES ALONG WITH 100MCG TABLET Nadolol (Nadolol) 20 Mg Tablet, 10 MG PO DAILY, (Reported) TAKES 1/2 (20MG) TABLET Oxycodone HCl (Oxycodone HCl) 10 Mg Tablet, 10 MG PO BID, (Reported) Oxycodone HCl (Oxycodone HCl) 10 Mg Tablet, 10 MG PO BID PRN for PAIN-SEVERE, ( Reported) Spironolactone (Spironolactone) 50 Mg Tablet, 50 MG PO DAILY, (Reported) Vit A/C/E/Zinc/Co (Preservision Areds Softgel) 1 Cap Capsule, 1 CAP PO BID, ( Reported) QLO-Jmbvzy-Jpopod Hx Patient Social History Marrital Status: single Living Status: LIVES IN HOME ALONE 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[employer], 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 [employer]) Alcohol Use: Denies Use Recreational Drug Use: No Smoking Status: Former Smoker Former smoker/When Quit: December 02, 1994 Type Used: Cigarettes 2nd Hand Smoke Exposure: No Recent Foreign Travel: No Contact w/other who traveled: No Recent Infectious Disease Expo: No Recent Hopitalizations: No Physical Abuse Screen: No Sexual Abuse: No Immunizations Up To Date Tetanus Booster (TDap): Unknown Date of Pneumonia Vaccine: Jul 11, 2014 Date of Influenza Vaccine: Apr 08, 2017 Family Medical History Significant Family History: No Pertinent Family Hx Family History: Patient reports no known family medical history. Physical Exam Vital Signs Vital Signs - First Documented 02/23/18 02/23/18 10:08 16:50 Temp 100.6 Pulse 98 Resp 25 B/P (MAP) 117/65 (82) Pulse Ox 96 O2 Delivery Room Air O2 Flow Rate 1.00 Capillary Refill : Less Than 3 SecondsLess Than 3 Seconds Height, Weight, BMI Height: 5'0.00" Weight: 129lbs. 0.0oz. 58.679178hp; 25.2 BMI Method:Stated General Appearance: No Apparent Distress, Chronically ill HEENT: PERRL/EOMI Neck: Supple Respiratory: Normal Breath Sounds, No Accessory Muscle Use, No Respiratory Distress Cardiovascular: Regular Rate, Rhythm Gastrointestinal: Non Tender, Soft Extremity: Non Tender, Swelling Neurologic/Psychiatric: Alert, Oriented x3 Skin: Ecchymosis Data Review Labs Laboratory Tests 02/24/18 05:00 Laboratory Tests 02/23/18 10:12: Red Blood Count 4.16L, Red Cell Distribution Width 16.0H, Platelet Count 53L, Mean Platelet Volume 11.9H, Neutrophils (%) (Auto) 84H, Lymphocytes (%) (Auto) 9L, Lymphocytes # (Auto) 0.6L, Prothrombin Time 17.0H, Urine Specific [place] 1.015L, Urine Protein 1+H, Urine Ketones 1+H, Creatinine 0.58L, Glucose Level 140H, Total Bilirubin 2.9H, Aspartate Amino Transf (AST/SGOT) 42H, Total Protein 5.7L 02/23/18 13:10: Red Blood Count 4.10L, Red Cell Distribution Width 16.1H, Platelet Count 42L, Mean Platelet Volume 11.1H, Neutrophils (%) (Auto) 85H, Lymphocytes (%) (Auto) 9L, Lymphocytes # (Auto) 0.6L 02/24/18 05:00: Red Blood Count 3.53L, Red Cell Distribution Width 16.5H, Platelet Count 36*L, Mean Platelet Volume 10.6H, Glucose Level 116H, Total Bilirubin 2.5H, Aspartate Amino Transf (AST/SGOT) 37H, Total Protein 4.2L, Hemoglobin 11.2L, Hematocrit 33L, Blood Urea Nitrogen 20H, Calcium Level 8.2L, Albumin 3.1L Impression & Plan Impression & Plan IMP: 1. Fever/Chills CXR mild infiltration suggesting pneumonia even though her 2nd CXR did not show obvious infiltration. 2. Hypotension and fall. I think most likely related to the infection 3. Worsening of chronic thrombocytopenia due to splenomegaly and infection. 4. 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 5. H/o fatty liver, liver cirrhosis, splenomegaly 6. H/o breast cancer, s/p mastectomy. 7. Bilateral chronic lower ext lymphoedema. Plan: 1. Agree with your current treatment with antibiotics, IVF. 2. Once she is over the infection and hypotension, we can re-evaluate her risk of falling. If she still has unsteady gait and falling, I will then consider to MRI of the head. This can be done as out-pt. 3. NO heparin DVT prophylaxis due to thrombocytopenia. 4. If discharge to group home or rehab, please arrange f/u with me within a month at cancer center. 5. No indication for Plt transfusion. I would only transfuse when Plt below 15k or active bleeding. Thank you for the consultation. GUILLE DEAN MD Feb 24, 2018 13:57
--- NOTE | 2018-02-24 18:00 | Occupational Therapy Eval ---
OT Evaluation-General/PLF Medical Diagnosis Admission Date Feb 23, 2018 at 11:05 Medical Diagnosis: RLL pneumonia Onset Date: Feb 23, 2018 Therapy Diagnosis Therapy Diagnosis: decr self care, weakness, decr funct mob, decr act maricel Height/Weight Height (Feet): 5 Height (Inches): 0.00 Weight (Pounds): 129 Weight (Ounces): 0.0 Precautions Precautions/Isolations: Fall Prevention, Standard Precautions Safety Interventions: Bed Exit Alarm Referral Physician: Beatrice Referral Reason: Evaluation/Treatment Medical History Pertinent Medical History: Arthritis, COPD, Hypothroidism Additional Medical History breast cancer/lymphedema/liver disease. Low back fusion. L mastectomy. Sleep apnea, CPAP. Cataract surgery. Skin cancer - head. Anemia. Restless legs per pt report Current History EMS secondary to weakness/bilateral LE edema/fall OOB to floor x 4 hours Reviewed History: Yes Social History Home: Single Level Current Living Status: Alone ADL-Prior Level of Function ADL PLOF Comments Pt reported that she has difficulty dressing and that it can take her an hour to dress. She has someone help her put on compression socks and take them off, as well as do laundry, clean, etc. She drives locally. 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 She does not use ADL for mobility at home - she furniture walks. She recently completed therapy for lymphedema management of LEs DME/Equipment: Bath Chair, Grab Bars, Shower, Toilet/Riser OT Current Status Subjective Pt seen in room, up in bed, agreeable to OT. Pain reported 0/10 Appearance Alert, cooperative, flat affect Mental Status/Objective Attachments: Central Line, Jeffers Catheter, IV, Oxygen Current Glasses/Contacts: Yes Hand Dominance: Right Upper Extremity ROM Grossly WFL bilat but limited in shoulders. R ring finger trigger finger. Arthritic deformities in fingers Upper Extremity Strength Grossly 4/5 bilat Tremors noted in bilat UE, R worse than L. ADL-Treatment ADL-Current Pt needed max assist to get up out of bed with PT and walked 125' with CGA, FWW with slow, shuffling gait. She said that she has been able to feed herself but had difficulty placing a bottle on her bedside tray. Nursing reports two person assist for toileting. Functional [place] Measure 0=Not Assessed/NA 4=Minimal Assistance 1=Total Assistance 5=Supervision or Setup 2=Maximal Assistance 6=Modified [place] 3=Moderate Assistance 7=Complete IndependenceIRFPAI Quality Coding Scale 6 Independent with activity with or without an assistive device 5 Patient requires set up or clean up by helper. Patient completes activity by themselves 4 Supervision or touching assist (CGA). [place] provide cues , steadying assist 3 The helper provides less than half the effort to complete the activity 2 The helper provides more than half the effort to complete the activity 1 Dependent. The helper does all the effort to complete an activity 7 Patient refused to complete or attempt activity 9 The patient did not perform the activity before the current illness or injury 88 Not attempted due to Medical conditions or safety concerns Education OT Patient Education: Purpose of tx/functional activities, Rehab process Teaching Recipient: Patient Teaching Methods: Discussion Response to Teaching: Verbalize Understanding OT Grapple Skidder Operator Goals Grapple Skidder Operator Goals Time Frame: Mar 03, 2018 Eating (FIM): 6 Grooming(FIM): 5 Bathing(FIM): 4 Upper Body Dressing(FIM): 5 Lower Body Dressing(FIM): 5 Toileting(FIM): 5 Toilet/Commode Transfer(FIM): 5 Shower Transfer(FIM): 5 Additional Goals: 1-Demonstrate ADL Tasks, 2-Verbalize Understanding, 3- ImproveStrength/[place]as[place] 1=Demonstrate adherence to instructed precautions during ADL tasks. 2=Patient will verbalize/demonstrate understanding of assistive devices/ modifications for ADL. 3=Patient will improve strength/tolerance for activity to enable patient to perform ADL's. OT Education/Plan Problem List/Assessment Assessment: Decreased Activ Tolerance, Decreased UE Strength, Dependent Transfers, Edema, Impaired Bed Mobility, Impaired Coordination, Impaired Self- Care Skills Pt would benefit from skilled OT to increase her independence in basic self care Discharge Recommendations Plan/Recommendations: Continue POC Therapy D/C Recommendations: Correction (TCU/NH) Treatment Plan/Plan of Care Treatment,Training & Education: Yes Patient would benefit from OT for education, treatment and training to promote independence in ADL's, mobility, safety and/or upper extremity function for ADL' s. Plan of Care: ADL Retraining, Functional Mobility, UE Funct Exercise/Act, UE Neuromus Re-Ed/Coord Treatment Duration: Mar 03, 2018 Frequency: 5 times per week Estimated Hrs Per Day: .5 hour per day Agreement: Yes Rehab Potential: Poor Time/GCodes Start Time: 17:14 Stop Time: 17:39 Total Time Billed (hr/min): 25 Billed Treatment Time visit, 25 minutes evaluation high intensity VICENTE CHAVEZ OT Feb 24, 2018 18:00
[2018-02-24] MEDS: IBUPROFEN 600 MG (MOTRIN) TAB PO PRN (23:22)
[2018-02-25 03:10] VITALS: BP 117/65
[2018-02-25 05:29] LABS: HEMOGLOBIN 11.5 G/DL (11.5-16.0); MEAN PLATELET VOLUME 11.2 FL (7.4-10.4); RED BLOOD COUNT 3.69 10^6/uL (4.35-5.85); RED CELL DISTRIBUTION WIDTH 16.8 % (10.0-14.5); WHITE BLOOD COUNT 4.3 10^3/uL (4.3-11.0)
[2018-02-25 05:44] LABS: CARBON DIOXIDE 23 MMOL/L (21-32); CHLORIDE 109 MMOL/L (98-107); CREATININE SERUM 0.65 MG/DL (0.60-1.30); POTASSIUM 3.9 MMOL/L (3.6-5.0); SODIUM 139 MMOL/L (135-145)
[2018-02-25 05:45] LABS: ALANINE AMINOTRANSFERASE 21 U/L (0-55); ALBUMIN 3.1 GM/DL (3.2-4.5); ALKALINE PHOSPHATASE 66 U/L (40-136); BILIRUBIN,TOTAL 1.9 MG/DL (0.1-1.0); BUN/CREATININE RATIO 32; CALCIUM 8.2 MG/DL (8.5-10.1); GFR ESTIMATED > 60; GLUCOSE 115 MG/DL (70-105); TOTAL PROTEIN 4.7 GM/DL (6.4-8.2)
[2018-02-25] MEDS: LEVOTHYROXINE 100 MCG (LEVOTHROID) TAB PO SCH (06:30)
[2018-02-25] MEDS: LEVOTHYROXINE 88 MCG (LEVOTHORID) TAB PO SCH (06:30)
[2018-02-25] MEDS: MULTIVIT W/MINERALS TAB (THERAGRAN M) PO SCH (06:30)
[2018-02-25 08:00] VITALS: BP 129/67
[2018-02-25] MEDS: cefTRIAXone 1 GM/NS 50 ML IVPB IV SCH ×2 (08:07)
[2018-02-25] MEDS: SPIRONOLACTONE 25 MG (ALDACTONE) TAB PO SCH (08:09)
[2018-02-25] MEDS: ARTIFICAL TEARS 0.4 ML UNIT DOSE (REFRESH PLUS) OU SCH ×2 (08:09→20:05)
[2018-02-25] MEDS: AZITHROMYCIN 250 MG TAB (ZITHROMAX) PO SCH (08:10)
[2018-02-25] MEDS: PROPRANOLOL 20 MG (INDERAL) TABLET PO SCH (08:11)
--- NOTE | 2018-02-25 08:24 | Progress Note ---
Subjective Date Seen by Provider: Feb 25, 2018 Time Seen by Provider: 08:15 Subjective/Events-last exam PT REPORTS THAT SHE IS FATIGUED, SHE IS HAVING NO SHORTNESS OF BREATH, BUT DOES HAVE PERSISTENT LEG PAIN. SHE REPORTS THAT SHE HAS NO NAUSEA, NO ABDOMINAL PAIN. Review of Systems General: Fatigue, Malaise HEENT: No Head Aches Pulmonary: No Dyspnea, No Cough Cardiovascular: No: Chest Pain Gastrointestinal: No: Nausea, Abdominal Pain Musculoskeletal: leg pain Neurological: Weakness; No: Confusion Focused Exam Lactate Level 02/23/18 10:12: Lactic Acid Level 1.14 Objective Exam Last Set of Vital Signs Vital Signs Date Time Temp Pulse Resp B/P (MAP) Pulse Ox O2 Delivery O2 Flow Rate FiO2 02/25/18 03:10 99.3 83 20 117/65 (82) 94 Room Air 02/23/18 20:39 1.00 Capillary Refill : Less Than 3 SecondsLess Than 3 Seconds I&O Intake and Output 02/25/18 00:00 Intake Total 2375 ml Output Total 475 ml Balance 1900 ml Intake Oral 375 ml IV Total 2000 ml Output Urine Total 475 ml # Bowel Movements 3 General: Alert, Oriented X3, Cooperative HEENT: Atraumatic, PERRLA Neck: Supple Lungs: Other (IMPROVED IN BASES) Heart: Regular Rate Abdomen: Normal Bowel Sounds, Soft Skin: Other (BRUISING OF LEGS AND CHRONIC WOUND ON SCALP) Psych/Mental Status: Mental Status NL, Mood NL Results Lab Laboratory Tests 02/25/18 04:55: White Blood Count 4.3, Red Blood Count 3.69L, Hemoglobin 11.5, Hematocrit 35, Mean Corpuscular Volume 95, Mean Corpuscular Hemoglobin 31, Mean Corpuscular Hemoglobin Concent 33, Red Cell Distribution Width 16.8H, Platelet Count 53L, Mean Platelet Volume 11.2H, Sodium Level 139, Potassium Level 3.9, Chloride Level 109H, Carbon Dioxide Level 23, Anion Gap 7, Blood Urea Nitrogen 21H, Creatinine 0.65, Estimat Glomerular Filtration Rate > 60, BUN/Creatinine Ratio 32, Glucose Level 115H, Calcium Level 8.2L, Total Bilirubin 1.9H, Aspartate Amino Transf (AST/SGOT) 37H, Alanine Aminotransferase (ALT/SGPT) 21, Alkaline Phosphatase 66, Total Protein 4.7L, Albumin 3.1L Microbiology 02/23/18 Blood Culture - Preliminary, Resulted No growth Assessment/Plan Assessment/Plan Assess & Plan/Chief Complaint PNEUMONIA SIMPLE SEPSIS LYMPHEDEMA HYPOTHYROID CHRONIC PAIN SYNDROME WEAKNESS FALLING EPISODES THROMBOCYTOPENIA HYPERBILIRUBINEMIA PNEUMONIA WITH SIMPLE SEPSIS - SYMPTOMS IMPROVED AFTER FLUIDS AND ANTIBIOTICS. CONTINUE WITH ANTIBIOTICS, MONITOR SYMPTOMS. LYMPHEDEMA -PT DOES NOT TOLERATE THE COMPRESSION FROM SCD'S - SHE REPORTS A ROUGH NIGHT DUE TO PAIN - WE WILL USE COMPRESSION ON PATIENT FROM LYMPHEDEMA SPECIALIST UPON DISCHARGE. HYPOTHYROID - RESUME LEVOTHYROXINE. CHRONIC PAIN SYNDROME - RESUME HOME REGIMEN OF PRN OXYCODONE. WEAKNESS - START PHYSICAL THERAPY TOMORROW. FALLING EPISODES - STARTED PHYSICAL THERAPY - WILL NEED SNF CARE ON DISCHARGE. - PT HAS CHOSEN VIA [employer]. THROMBOCYTOPENIA - MONITOR LABS - HYPERBILIRUBINEMIA -IMPROVED WITH IV FLUIDS Clinical Quality Measures Admission Status Admission Dx PNEUMONIA SIMPLE SEPSIS LYMPHEDEMA HYPOTHYROID CHRONIC PAIN SYNDROME WEAKNESS FALLING EPISODES THROMBOCYTOPENIA HYPERBILIRUBINEMIA DVT/VTE Risk/Contraindication: Risk Factor Score Per Nursin RFS Level Per Nursing on Admit: 4+=Very High Contraindications-Pharm: Other *list below* Other: PT HAS A PLT OF 42, LOVENOX CONTRAINDICATED DUE TO VERY HIGH RISK OF BLEEDING CHRISTOPHER WALKER MD Feb 25, 2018 08:24
--- NOTE | 2018-02-25 10:21 | Physical Therapy Daily Note ---
PT Daily Note-Current Subjective Pt sitting up in bed finishing breakfast upon arrival. Pt agrees to PT. Pt is very slow to complete tasks (eating, transfers, walking, etc.) and need to redirect to keep pt on task instead of talking. Pain Location: No Pain Reported Mental Status Patient Orientation: Person, Place, Situation Attachments: IV Jeffers was removed during tx. Transfers Functional [place] Measure 0=Not Assessed/NA 4=Minimal Assistance 1=Total Assistance 5=Supervision or Setup 2=Maximal Assistance 6=Modified [place] 3=Moderate Assistance 7=Complete IndependenceIRFPAI Quality Coding Scale 6 Independent with activity with or without an assistive device 5 Patient requires set up or clean up by helper. Patient completes activity by themselves 4 Supervision or touching assist ([facility]). Bliss provide cues , steadying assist 3 The helper provides less than half the effort to complete the activity 2 The helper provides more than half the effort to complete the activity 1 Dependent. The helper does all the effort to complete an activity 7 Patient refused to complete or attempt activity 9 The patient did not perform the activity before the current illness or injury 88 Not attempted due to Medical conditions or safety concerns Scootin Rollin Supine to/from Sit: 4 Sit to/from Stand: 4 Weight Bearing Right Lower Extremity: Right Full Weight Bearing Left Lower Extremity: Left Full Weight Bearing Gait Training Distance (FIM): 3=150 ft Distance: 175' Gait Level of Assist: 5 Gait Persons Needed: 1 Gait Assistive Device: FWW Pt walks with very slow marion but is steady, no LOB. Pt walks with slight kyphotic posture & flexed knees. Exercises Supine Ex: Rolling, Scooting Treatments Pt finishes breakfast then transfers from Supine to EOB with CAKE WINDER assistance. Pt transfers from EOB to Standing using FWW at [facility]. PT ambulates in hallway before returning to room to rest in recliner. Pt resting with pillow behind head, back & under BLE. Pt has all needs met, including call light & phone, tray table beside pt. Assessment Current Status: Good Progress Pt completes tasks very slowly. Pt is gaining strength but still requires assistance from CAKE WINDER for transfers. PT Half-Way Goals Acetylene Torch Burner Goals PT Acetylene Torch Burner Goals Time Frame: Feb 28, 2018 Transfers (B,C,W/C) (FIM): 4 Gait (FIM): 2 Gait distance (FIM): 1=055-97 ft Distance: 140' Gait Level of Assist: 5 Gait Assistive Device: FWW PT Plan Problem List Problem List: Activity Tolerance, Functional Strength, Safety Treatment/Plan Treatment Plan: Continue Plan of Care Treatment Plan: Bed Mobility, Education, Functional Activity Nasra, Functional Strength, Gait, Safety, Therapeutic Exercise, Transfers Treatment Duration: Feb 28, 2018 Frequency: 5 times per week Estimated Hrs Per Day: .25 hour per day Patient and/or Family Agrees t: Yes Safety Risks/Education Patient Education: Gait Training, Transfer Techniques, Correct Positioning, Safety Issues Teaching Recipient: Patient Teaching Methods: Discussion Response to Teaching: Verbalize Understanding Time/GCodes Time In: 900 Time Out: 935 Total Billed Treatment Time: 35 Total Billed Treatment 1, FA (20m) & GT (15m) G Codes Necessary: KUMAR Cardona CAKE WINDER Feb 25, 2018 10:21
--- NOTE | 2018-02-25 10:24 | Occupational Ther Daily Note ---
OT Current Status-Daily Note Subjective Pt seen in room, up in recliner, agreeable to OT. No pain mentioned. Pt pleased with her walk with PT earlier this morning. Appearance Alert, cooperative Mental Status/Objective Functional [place] Measure 0=Not Assessed/NA 4=Minimal Assistance 1=Total Assistance 5=Supervision or Setup 2=Maximal Assistance 6=Modified [place] 3=Moderate Assistance 7=Complete [place] Other Treatment Pt moved very slowly to take blanket off her shoulders. She did 9 reps bilat shoulder flex (to approx 90 degrees), 10 reps bilat elbow flex and pron/sup. Worked on isolating intrinsics but AROM fingers limited by arthritic deformities. Also discussed commercially available jewelry for swan neck deformities and showed pt photos of rings available. Pt left up in recliner, all needs met. Education OT Patient Education: Exercise program, Purpose of tx/functional activities Teaching Recipient: Patient Teaching Methods: Discussion, Audiovisual Response to Teaching: Verbalize Understanding OT Short Term Goals Short Term Goals 1=Demonstrate adherence to instructed precautions during ADL tasks. 2=Patient will verbalize/demonstrate understanding of assistive devices/ modifications for ADL. 3=Patient will improve strength/tolerance for activity to enable patient to perform ADL's. OT Correction Goals Correction Goals Time Frame: Mar 03, 2018 Eating (FIM): 6 Grooming(FIM): 5 Bathing(FIM): 4 Upper Body Dressing(FIM): 5 Lower Body Dressing(FIM): 5 Toileting(FIM): 5 Toilet/Commode Transfer(FIM): 5 Shower Transfer(FIM): 5 Additional Goals: 1-Demonstrate ADL Tasks, 2-Verbalize Understanding, 3- ImproveStrength/Nasra 1=Demonstrate adherence to instructed precautions during ADL tasks. 2=Patient will verbalize/demonstrate understanding of assistive devices/ modifications for ADL. 3=Patient will improve strength/tolerance for activity to enable patient to perform ADL's. OT Education/Plan Problem List/Assessment Pt would benefit from skilled OT to increase her independence in basic self care Discharge Recommendations Plan/Recommendations: Continue POC Treatment Plan/Plan of Care Patient would benefit from OT for education, treatment and training to promote independence in ADL's, mobility, safety and/or upper extremity function for ADL' s. Plan of Care: ADL Retraining, Functional Mobility, UE Funct Exercise/Act, UE Neuromus Re-Ed/Coord Treatment Duration: Mar 03, 2018 Frequency: 5 times per week Estimated Hrs Per Day: .5 hour per day Agreement: Yes Rehab Potential: Poor Time/GCodes Start Time: 09:50 Stop Time: 10:05 Total Time Billed (hr/min): 15 Billed Treatment Time visit, 15 minutes exercise VICENTE CHAVEZ OT Feb 25, 2018 10:24
--- NOTE | 2018-02-25 10:29 | Physician Progress Note ---
Progress Note Assessment/Plan Date Seen by Provider: Feb 25, 2018 Time Seen by Provider: 10:28 Events since last exam Pt is up to chair and looked a lot better than yesterday. Plt is up to 53k today. She complaints of pain in her lower back Assessment/Plan IMP: 1. Fever/Chills CXR mild infiltration suggesting pneumonia even though her 2nd CXR did not show obvious infiltration. Improving. 2. Hypotension and fall. I think most likely related to the infection. Resolving. 3. Worsening of chronic thrombocytopenia due to splenomegaly and infection. It is better after the antibiotics treatment. 4. 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 5. H/o fatty liver, liver cirrhosis, splenomegaly 6. H/o breast cancer, s/p mastectomy. 7. Bilateral chronic lower ext lymphoedema. Plan: 1. Agree with your current treatment. 2. Once she is over the infection and hypotension, we can re-evaluate her risk of falling. If she still has unsteady gait and falling, I will then consider to MRI of the head. This can be done as out-pt. 3. NO heparin DVT prophylaxis due to thrombocytopenia. 4. If discharge to residential or rehab, please arrange f/u with me within a month at cancer center. 5. No indication for Plt transfusion. I would only transfuse when Plt below 15k or active bleeding. Vitals Last set of Vitals Signs Vital Signs Date Time Temp Pulse Resp B/P (MAP) Pulse Ox O2 Delivery O2 Flow Rate FiO2 02/25/18 09:00 94 Nasal Cannula 2.50 02/25/18 08:00 97.5 76 18 129/67 (87) I&O I&O Intake and Output 02/25/18 00:00 Intake Total 2375 ml Output Total 475 ml Balance 1900 ml Intake Oral 375 ml IV Total 2000 ml Output Urine Total 475 ml # Bowel Movements 3 Labs Laboratory Tests 02/25/18 04:55: White Blood Count 4.3, Red Blood Count 3.69L, Hemoglobin 11.5, Hematocrit 35, Mean Corpuscular Volume 95, Mean Corpuscular Hemoglobin 31, Mean Corpuscular Hemoglobin Concent 33, Red Cell Distribution Width 16.8H, Platelet Count 53L, Mean Platelet Volume 11.2H, Sodium Level 139, Potassium Level 3.9, Chloride Level 109H, Carbon Dioxide Level 23, Anion Gap 7, Blood Urea Nitrogen 21H, Creatinine 0.65, Estimat Glomerular Filtration Rate > 60, BUN/Creatinine Ratio 32, Glucose Level 115H, Calcium Level 8.2L, Total Bilirubin 1.9H, Aspartate Amino Transf (AST/SGOT) 37H, Alanine Aminotransferase (ALT/SGPT) 21, Alkaline Phosphatase 66, Total Protein 4.7L, Albumin 3.1L Microbiology 02/23/18 Blood Culture - Preliminary, Resulted No growth Focused Exam Lactate Level 02/23/18 10:12: Lactic Acid Level 1.14 Clinical Quality Measures DVT/VTE Risk/Contraindication: Risk Factor Score Per Nursin RFS Level Per Nursing on Admit: 4+=Very High Contraindications-Pharm: Other *list below* Other: PT HAS A PLT OF 42, LOVENOX CONTRAINDICATED DUE TO VERY HIGH RISK OF BLEEDING GUILLE DEAN MD Feb 25, 2018 10:29
[2018-02-25 12:00] VITALS: BP 124/72
[2018-02-25 15:40] VITALS: BP 115/66
[2018-02-25 19:40] VITALS: BP 114/62
[2018-02-25] MEDS: NS IV 1000 ML 1,000 ML IV SCH (22:12)
[2018-02-26 00:24] VITALS: BP 108/59
[2018-02-26 04:00] VITALS: BP 129/73
[2018-02-26] MEDS: NS IV 1000 ML 1,000 ML IV SCH (05:39)
[2018-02-26] MEDS: LEVOTHYROXINE 88 MCG (LEVOTHORID) TAB PO SCH (06:06)
[2018-02-26] MEDS: MULTIVIT W/MINERALS TAB (THERAGRAN M) PO SCH (06:06)
[2018-02-26] MEDS: LEVOTHYROXINE 100 MCG (LEVOTHROID) TAB PO SCH (06:06)
[2018-02-26 08:00] VITALS: BP 127/61
--- NOTE | 2018-02-26 08:37 | Discharge Summary ---
Diagnosis/Chief Complaint Date of Admission Feb 23, 2018 at 11:05 Date of Discharge Discharge Date: Feb 26, 2018 Discharge Time: 08:50 Admission Diagnosis Admission Diagnosis PNEUMONIA SIMPLE SEPSIS LYMPHEDEMA HYPOTHYROID CHRONIC PAIN SYNDROME WEAKNESS FALLING EPISODES THROMBOCYTOPENIA HYPERBILIRUBINEMIA Discharge Diagnosis PNEUMONIA SIMPLE SEPSIS LYMPHEDEMA HYPOTHYROID CHRONIC PAIN SYNDROME WEAKNESS FALLING EPISODES THROMBOCYTOPENIA HYPERBILIRUBINEMIA Reason Hospital Visit PT IS AN 82 Y/O FEMALE WHO IS WELL KNOWN TO ME FROM CLINIC. SHE PRESENTED TO THE EMERGENCY DEPARTMENT AFTER HAVING FALLEN WHEN TRYING TO GET OUT OF BED AND LYING ON THE FLOOR FOR OVER 4 HOURS WAITING UNTIL HER PAID HELPER - MICHELLE - WAS ABLE TO COME OVER TO HELP HER UP OFF OF THE FLOOR. SHE REPORTS THAT SHE STARTED TO FEEL POORLY THIS WEEKEND, WITH FEVERISH PERIODS OF TIME AND FINALLY DECIDED TO COME TO THE HOSPITAL AFTER SHE WAS TOO WEAK TO GET UP OFF OF THE FLOOR AND SHE HAS HAVING FEVERS/CHILLS. Discharge Summary Discharge Physical Examination Allergies: Coded Allergies: Sulfa (Sulfonamide Antibiotics) (Verified Allergy, Unknown, 02/23/18) Vitals & I&Os Vital Signs Date Time Temp Pulse Resp B/P (MAP) Pulse Ox O2 Delivery O2 Flow Rate FiO2 02/26/18 11:51 97.7 68 20 108/64 (79) 96 Room Air 02/26/18 07:06 2.00 General Appearance: Alert, Oriented X3, Cooperative HEENT: Atraumatic, PERRLA Respiratory: Clear to Auscultation Cardiovascular: Regular Rate Abdominal: Normal Bowel Sounds, Soft Extremities: No Clubbing, Other (EDEMA BILATERAL LOWER LEGS TO KNEES) Skin: No Rashes Neuro: Cranial Nerves 3-12 NL Psych/Mental Status: Mental Status NL, Mood NL Hospital Course PNEUMONIA SIMPLE SEPSIS LYMPHEDEMA HYPOTHYROID CHRONIC PAIN SYNDROME WEAKNESS FALLING EPISODES THROMBOCYTOPENIA HYPERBILIRUBINEMIA PNEUMONIA WITH SIMPLE SEPSIS - SYMPTOMS IMPROVED AFTER FLUIDS AND ANTIBIOTICS. CONTINUE WITH ANTIBIOTICS, MONITOR SYMPTOMS. LYMPHEDEMA - SCD'S TODAY- MONITOR I/O CLOSELY, MOYA IN PLACE, WILL USE COMPRESSION ON PATIENT FROM LYMPHEDEMA SPECIALIST UPON DISCHARGE. HYPOTHYROID - RESUME LEVOTHYROXINE. CHRONIC PAIN SYNDROME - RESUME HOME REGIMEN OF PRN OXYCODONE. WEAKNESS - START PHYSICAL THERAPY AT HALFWAY FALLING EPISODES - CONTINUE WITH PHYSICAL THERAPY. THROMBOCYTOPENIA - MONITOR LABS HYPERBILIRUBINEMIA - IMPROVED Discharge Condition at discharge STABLE Instructions to patient/family Please see electronic discharge instructions given to patient. Discharge Medications Reviewed and agree with Discharge Medication list on patient's Discharge Instruction sheet Clinical Quality Measures DVT/VTE Risk/Contraindication: Risk Factor Score Per Nursin RFS Level Per Nursing on Admit: 4+=Very High Contraindications-Pharm: Other *list below* Other: PT HAS A PLT OF 42, LOVENOX CONTRAINDICATED DUE TO VERY HIGH RISK OF BLEEDING CHRISTOPHER WALKER MD Feb 26, 2018 08:37
[2018-02-26] MEDS ORDERED: LACT1CAP8 PO (08:42)
[2018-02-26] MEDS ORDERED: CEPH500C PO (08:42)
[2018-02-26] MEDS ORDERED: Oxycodone Hcl PO (08:42)
[2018-02-26] MEDS ORDERED: AZIT250T12 PO (08:42)
--- NOTE | 2018-02-26 08:44 | Discharge Inst-Skilled Nursing ---
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 BARRON IN [address] DEAN IN 1 MONTH Consult/Follow Up/Orders Skilled NF Admit to: [facility] ([facility]) I certify that SNF services are required to be given on an inpatient basis because of the above named patient's need for custodial care on a continuing basis for the conditions(s) for which he/she was receiving inpatient hospital services prior to his/her transfer to the [facility]. Correction Facility Order: Nursing Services (PT WILL NEED LEGS WRAPPED IN AM AND OFF AT HS FOR LYMPHEDEMA - PT CAN INSTRUCT IN HOW HER LEGS ARE TO BE WRAPPED), Regional Marketing Director-Evaluate & Treat, Physical Therapy-Evaluate & Treat Discharge Diet: Regular Diet Daily Activity as Tolerated: Yes New & Resume Previous Orders Christopher Barron Feb 26, 2018 08:42 CHRISTOPHER BARRON MD Feb 26, 2018 08:44
[2018-02-26] MEDS ORDERED: FUROSEMIDE 40 MG/4 ML INJ (LASIX) IVP NR (09:15)
[2018-02-26] MEDS: cefTRIAXone 1 GM/NS 50 ML IVPB IV SCH ×2 (09:21)
[2018-02-26] MEDS: ARTIFICAL TEARS 0.4 ML UNIT DOSE (REFRESH PLUS) OU SCH (09:22)
[2018-02-26] MEDS: PROPRANOLOL 20 MG (INDERAL) TABLET PO SCH (09:22)
[2018-02-26] MEDS: SPIRONOLACTONE 25 MG (ALDACTONE) TAB PO SCH (09:22)
[2018-02-26] MEDS: AZITHROMYCIN 250 MG TAB (ZITHROMAX) PO SCH (09:23)
[2018-02-26 11:51] VITALS: BP 108/64
== END 2018-02-26 14:40 | DRG 871 ==
LOC: EDUNIT# 10:13 → ER 10:14 → 4TH 11:05 → EDPENDDISTM 02-26 08:50 → 4TH 02-26 09:54
PROVIDERS: ADMIT Family Medicine; ATTEND Family Medicine
DX: A41.9 Sepsis, unspecified organism (principal); J18.9 Pneumonia, unspecified organism; I89.0 Lymphedema, not elsewhere classified; G47.30 Sleep apnea, unspecified; K74.60 Unspecified cirrhosis of liver; E78.00 Pure hypercholesterolemia, unspecified; E03.9 Hypothyroidism, unspecified; Z66 Do not resuscitate; M19.91 Primary osteoarthritis, unspecified site; F32.9 Major depressive disorder, single episode, unspecified; D64.9 Anemia, unspecified; D72.819 Decreased white blood cell count, unspecified; D69.6 Thrombocytopenia, unspecified; R53.1 Weakness; R29.6 Repeated falls; G89.4 Chronic pain syndrome; Z87.891 Personal history of nicotine dependence; Z85.3 Personal history of malignant neoplasm of breast; Z90.12 Acquired absence of left breast and nipple; Z86.010 Personal history of colon polyps; Z98.1 Arthrodesis status; Z85.828 Personal history of other malignant neoplasm of skin
CPT/HCPCS: 36415; 51702; 71045; 71046; 80053; 81000; 83605; 85025; 85027; 85610; 85730; 87040; 96361; 96365; 96375

== ENCOUNTER 2018-05-15 10:49 | Emergency (ER) | payer MEDICARE ==
[~2018-05-15] VITALS: Ht 162.6 cm; Wt 54.0 kg
[~2018-05-15 10:49] MED LIST changes: +AZIT250T12 PO; +CYCL1DRO OU; +LACT1CAP8 PO; +LEVO100T7 PO; +LEVO88TA54 PO; +Oxycodone Hcl PO
--- NOTE | 2018-05-15 11:12 | ED General ---
General Stated Complaint: WEAKNESS Source of Information: Patient, EMS Exam Limitations: No Limitations History of Present Illness Date Seen by Provider: May 15, 2018 Time Seen by Provider: 11:06 Initial Comments To ER per EMS from home with reports of 3 days of general weakness. She states that about 3 days ago she was sleeping in her recliner and when she awakened she had right wrist drop and was only able to extend the wrist with much effort. Because of this she's had significant difficulty with feeding herself. She states that she is generally weak but denies any pains fevers or chills. She has wounds on bilateral lower extremities. She is incontinent of urine and the dressings for these wounds on the lower extremities are soaked in urine. She states that it takes her nearly 2 hours to get out of bed and put on a pair of depends. She reports a pressure ulcer on her bottom from sitting in the recliner all day. She states that she would be agreeable to going to a [facility] if it was necessary. Timing/Duration: 1-2 Days Severity: Moderate Associated Systoms: Weakness Allergies and Home Medications Allergies Coded Allergies: Sulfa (Sulfonamide Antibiotics) (Verified Allergy, Unknown, 02/23/18) Home Medications Azithromycin 250 Mg Tablet, 250 MG PO DAILY Prescribed by: CHRISTOPHER WALKER on 02/26/18 0842 Cephalexin 500 Mg Capsule, 500 MG PO QID Prescribed by: CHRISTOPHER WALKER on 02/26/18 0842 Cholecalciferol (Vitamin D3) 2,000 Unit Capsule, 2,000 UNIT PO HS, (Reported) Cyclosporine 1 Each Droperette, 1 DROP OU BID, (Reported) Docusate Sodium 100 Mg Capsule, 100 MG PO HS, (Reported) Lactobacillus Acidophilus 1 Each Capsule, 1 EACH PO BID Prescribed by: CHRISTOPHER WALKER on 02/26/18 0842 Levothyroxine Sodium 100 Mcg Tablet, 100 MCG PO DAILY, (Reported) TAKES ALONG WITH 88MCG TABLET Levothyroxine Sodium 88 Mcg Tablet, 88 MCG PO DAILY, (Reported) TAKES ALONG WITH 100MCG TABLET Nadolol 20 Mg Tablet, 10 MG PO DAILY, (Reported) TAKES 1/2 (20MG) TABLET Spironolactone 50 Mg Tablet, 50 MG PO DAILY, (Reported) Vit A/C/E/Zinc/Co 1 Cap Capsule, 1 CAP PO BID, (Reported) [Oxycodone Hcl] 5 MG TAB, 5 MG PO QID Prescribed by: CHRISTOPHER WALKER on 02/26/18 08 Patient Home Medication List Home Medication List Reviewed: Yes Review of Systems Review of Systems Constitutional: see HPI; No chills, No fever; weakness EENTM: see HPI Respiratory: no symptoms reported; No cough Genitourinary: no symptoms reported Musculoskeletal: no symptoms reported Skin: no symptoms reported Psychiatric/Neurological: No Symptoms Reported; Denies Headache, Denies Numbness Hematologic/Lymphatic: No Symptoms Reported Past Gzdphey-Fmgybo-Fearuo Hx Patient Social History Type Used: Cigarettes Former Smoker, Quit: Jun 03, 1990 2nd Hand Smoke Exposure: No Recent Hopitalizations: No Immunizations Up To Date Tetanus Booster (TDap): Unknown Date of Pneumonia Vaccine: Jul 11, 2014 Date of Influenza Vaccine: Apr 08, 2017 Seasonal Allergies Seasonal Allergies: No Past Medical History Surgeries: Yes (RIGHT RCR, MULTI SKIN LESIONS REMOVED, LOWER BACK FUSION, LEFT MASTECTOMY, ) Respiratory: Yes (CPAP) Sleep Apnea Cardiac: Yes High Cholesterol Neurological: No Reproductive Disorders: No Sexually Transmitted Disease: No Genitourinary: No Gastrointestinal: Yes (polyp removed from colon) Liver Disease/Jaundice, Cirrhosis Musculoskeletal: Yes (arthritis) Arthritis Endocrine: Yes Hypothyroidsim HEENT: No (PRIOR CATARACT SURGERY) Cataract Cancer: Yes (LYMPHADEMA) Breast Psychosocial: Yes Depression Integumentary: Yes (SKIN CANCER REMOVAL AREAS, LYMPHEDEMA LOWER EXT) Recent Skin Changes Blood Disorders: Yes (anemia, leukopenia and thrombocytopenia) Family Medical History Patient reports no known family medical history. No Pertinent Family Hx Physical Exam Vital Signs Vital Signs - First Documented 05/15/18 11:00 Temp 97.6 Pulse 67 Resp 18 B/P (MAP) 111/65 (80) Pulse Ox 98 O2 Delivery Room Air Capillary Refill : Height, Weight, BMI Height: 5'0.00" Weight: 138lbs. 8.0oz. 62.618736mm; 25.2 BMI Method:Stated General Appearance: No Apparent Distress, WD/WN, Other (generally weak, very frail appearing but alert and oriented and able to carry on a coherent conversation with me.) Eyes: Bilateral Eye Normal Inspection, Bilateral Eye PERRL HEENT: PERRL/EOMI, TMs Normal Respiratory: No Accessory Muscle Use, No Respiratory Distress Cardiovascular: Normal Peripheral Pulses, Systolic Murmur Gastrointestinal: Non Tender, Soft Extremity: Normal Capillary Refill, Other (she does have wrist drop on the right. She has difficulty with wrist extension on the right. This weakness seems to begin at the elbow she states. She is able to abduct the arms at the shoulder with symmetrical strength bilaterally with arm abduction shoulder. I believe this to represent an ulnar neuropathy rather than a more central lesion. ) Neurologic/Psychiatric: Alert, Oriented x3 Skin: Normal Color, Warm/Dry, Other (small open wounds draining serous fluid to BLE, only 1-2 lesions per lower leg. Chronic brownish discoloration of BLE from venous stasis. There is some erythema and petechaie to the proximal left lower extremity. ) Focused Exam Lactate Level 05/15/18 11:16: Lactic Acid Level 0.95 Lactic Acid Level Progress/Results/Core Measures Suspected Sepsis SIRS Temperature: Pulse: Respiratory Rate: Laboratory Tests 05/15/18 11:10: White Blood Count 3.9L Blood Pressure / Mean: 05/15/18 11:16: Lactic Acid Level 0.95 Laboratory Tests 05/15/18 11:10: Creatinine 0.78, Platelet Count 63L, Total Bilirubin 3.5H Results/Orders Lab Results Laboratory Tests Test 05/15/18 11:10 05/15/18 11:16 05/15/18 11:40 Range/Units White Blood Count 3.9 L 4.3-11.0 10^3/uL Red Blood Count 4.08 L 4.35-5.85 10^6/uL Hemoglobin 12.5 11.5-16.0 G/DL Hematocrit 37 35-52 % Mean Corpuscular Volume 91 80-99 FL Mean Corpuscular Hemoglobin 31 25-34 PG Mean Corpuscular Hemoglobin Concent 34 32-36 G/DL Red Cell Distribution Width 15.1 H 10.0-14.5 % Platelet Count 63 L 130-400 10^3/uL Mean Platelet Volume 11.0 H 7.4-10.4 FL Neutrophils (%) (Auto) 56 42-75 % Lymphocytes (%) (Auto) 30 12-44 % Monocytes (%) (Auto) 13 H 0-12 % Eosinophils (%) (Auto) 2 0-10 % Basophils (%) (Auto) 0 0-10 % Neutrophils # (Auto) 2.2 1.8-7.8 X 10^3 Lymphocytes # (Auto) 1.2 1.0-4.0 X 10^3 Monocytes # (Auto) 0.5 0.0-1.0 X 10^3 Eosinophils # (Auto) 0.1 0.0-0.3 10^3/uL Basophils # (Auto) 0.0 0.0-0.1 10^3/uL Sodium Level 139 135-145 MMOL/L Potassium Level 4.6 3.6-5.0 MMOL/L Chloride Level 100 98-107 MMOL/L Carbon Dioxide Level 29 21-32 MMOL/L Anion Gap 10 5-14 MMOL/L Blood Urea Nitrogen 24 H 7-18 MG/DL Creatinine 0.78 0.60-1.30 MG/DL Estimat Glomerular Filtration Rate > 60 BUN/Creatinine Ratio 31 Glucose Level 120 H 70-105 MG/DL Calcium Level 9.7 8.5-10.1 MG/DL Corrected Calcium 9.6 8.5-10.1 MG/DL Total Bilirubin 3.5 H 0.1-1.0 MG/DL Aspartate Amino Transf (AST/SGOT) 36 H 5-34 U/L Alanine Aminotransferase (ALT/SGPT) 19 0-55 U/L Alkaline Phosphatase 93 40-136 U/L Troponin I < 0.30 <0.30 NG/ML Total Protein 6.7 6.4-8.2 GM/DL Albumin 4.1 3.2-4.5 GM/DL Lactic Acid Level 0.95 0.50-2.00 MMOL/L Urine Color VIRGIE H Urine Clarity SLIGHTLY CLOUDY Urine pH 5 5-9 Urine Specific [place] 1.020 1.016-1.022 Urine Protein 2+ H NEGATIVE Urine Glucose (UA) NEGATIVE NEGATIVE Urine Ketones 2+ H NEGATIVE Urine Nitrite POSITIVE H NEGATIVE Urine Bilirubin NEGATIVE NEGATIVE Urine Urobilinogen 4 H NORMAL MG/DL Urine Leukocyte Esterase 3+ H NEGATIVE Urine RBC (Auto) 2+ H NEGATIVE Urine RBC RARE /HPF Urine WBC 10-25 H /HPF Urine Squamous Epithelial Cells 10-25 H /HPF Urine Crystals NONE /LPF Urine Bacteria MODERATE H /HPF Urine Casts NONE /LPF Urine Mucus SMALL H /LPF Urine Culture Indicated YES My Orders Orders - RINA LEONARDO VIDEO GAME REPAIR TECHNICIAN Cbc With Automated Diff (05/15/18 10:57) Comprehensive Metabolic Panel (05/15/18 10:57) Ua Culture If Indicated (05/15/18 10:57) Iv Heplock-Insert (Order) (05/15/18 10:57) Chest 1 View, Ap/Pa Only (05/15/18 10:57) Ekg Tracing (05/15/18 10:57) Troponin I (05/15/18 10:57) Blood Culture (05/15/18 11:05) Lactic Acid Analyzer (05/15/18 11:05) Straight Cath (Urinary) (05/15/18 11:05) Ct Head Wo (05/15/18 11:06) Ns Iv 500 Ml (Sodium Chloride 0.9%) (05/15/18 11:30) Wound Culture (05/15/18 12:15) Urine Culture (05/15/18 11:40) Ceftriaxone For Iv Use (Rocephin For I (05/15/18 12:45) Medications Given in ED Current Medications Medications Dose Ordered Sig/Evelio Route Start Time Stop Time Status Last Admin Dose Admin Ceftriaxone Sodium 1000 mg/ Sodium Chloride 50 ml @ 100 mls/hr ONCE ONCE IV 05/15/18 12:45 05/15/18 13:14 DC 05/15/18 13:56 100 MLS/HR Vital Signs/I&O 05/15/18 11:00 Temp 97.6 Pulse 67 Resp 18 B/P (MAP) 111/65 (80) Pulse Ox 98 O2 Delivery Room Air Capillary Refill : Diagnostic Imaging Diagonstic Imaging: CT Comments NAME: DEV MALDONADO [facility] REC#: [id number] PT STATUS: REG ER : 1935 PHYSICIAN: IRNA LEONARDO APRN ADMIT DATE: 05/15/18/ER Draft Date of Exam:05/15/18 CT HEAD WO CLINICAL INDICATION: Patient with weakness. EXAM: Axial CT scan of the brain performed without IV contrast. COMPARISON: Head CT without IV contrast dated 10/30/2017. FINDINGS: There is no evidence of acute cerebral infarct, intracranial hemorrhage, or gross mass effect. There is diffuse brain parenchymal volume loss again seen. There are patchy and confluent areas of low-attenuation white matter changes within both cerebral hemispheres which has not significantly changed compared to the prior study. This is suspected to represent chronic small vessel ischemic disease and leukoaraiosis. There is normal barnes-white matter distinction. There is no significant midline shift or herniation. There is no evidence of hydrocephalus. The basal cisterns are unremarkable. The skull, extracranial soft tissue, and orbits are unremarkable. There is interval development of large amount of mucosal thickening and fluid in the sphenoid sinus. There is stable mild mucosal thickening in the ethmoid sinus. There is a [id number]-[id number]-sized mucous retention cyst in the right maxillary sinus which was not imaged on the prior study. Temporal bones show no significant abnormality. IMPRESSION: 1: Interval development of paranasal sinusitis. 2: Stable CT scan of the brain with diffuse brain parenchymal volume loss and diffuse chronic small vessel ischemic disease and leukoaraiosis. Dictated on workstation # [id number] Dict: 05/15/18 1218 Trans: 05/15/18 1230 [id number] Interpreted by: EDWARDO ISAACS MD Electronically signed by: Departure Communication (Admissions) [id number] [facility] has accepted the patient and will come to pick her up Impression Primary Impression: Generalized weakness Additional Impressions: Ulnar neuropathy at elbow of right upper extremity Urinary tract infection Disposition: ADMITTED INPATIENT Condition: Stable Admissions Decision to Admit Reason: Admit from ER (General) Decision to Admit/Date: May 15, 2018 Time/Decision to Admit Time: 11:15 Departure-Patient Inst. Decision time for Depature: 15:59 Referrals: CHRISTOPHER WALKER MD (PCP/Family) Primary Care Physician Patient Instructions: Urinary Tract Infection, Adult (DC) Scripts Cefdinir (Cefdinir) 300 Mg Capsule 300 MG PO BID, #10 CAP Prov: RINA LEONARDO VIDEO GAME REPAIR TECHNICIAN 05/15/18 RINA LEONARDO VIDEO GAME REPAIR TECHNICIAN May 15, 2018 11:12
[2018-05-15 11:18] LABS: BASOPHILS % (AUTO) 0 % (0-10); EOSINOPHILS # (AUTO) 0.1 10^3/uL (0.0-0.3); EOSINOPHILS % (AUTO) 2 % (0-10); HEMATOCRIT 37 % (35-52); HEMOGLOBIN 12.5 G/DL (11.5-16.0); LYMPHOCYTES # (AUTO) 1.2 X 10^3 (1.0-4.0); LYMPHOCYTES % (AUTO) 30 % (12-44); MEAN CORPUSCULAR HEMOGLOBIN 31 PG (25-34); MEAN CORPUSCULAR HGB CONC 34 G/DL (32-36); MEAN CORPUSCULAR VOLUME 91 FL (80-99); MONOCYTES # (AUTO) 0.5 X 10^3 (0.0-1.0); MONOCYTES % (AUTO) 13 % (0-12); NEUTROPHILS # (AUTO) 2.2 X 10^3 (1.8-7.8); NEUTROPHILS % (AUTO) 56 % (42-75); RED BLOOD COUNT 4.08 10^6/uL (4.35-5.85); RED CELL DISTRIBUTION WIDTH 15.1 % (10.0-14.5); WHITE BLOOD COUNT 3.9 10^3/uL (4.3-11.0)
[2018-05-15 11:22] LABS: PLATELET COUNT 63 10^3/uL (130-400)
[2018-05-15] MEDS ORDERED: NS IV 500 ML 500 ML IV SCH (11:30)
[2018-05-15 11:34] LABS: ALANINE AMINOTRANSFERASE 19 U/L (0-55); ALBUMIN 4.1 GM/DL (3.2-4.5); ALKALINE PHOSPHATASE 93 U/L (40-136); BILIRUBIN,TOTAL 3.5 MG/DL (0.1-1.0); BUN/CREATININE RATIO 31; CALCIUM 9.7 MG/DL (8.5-10.1); CARBON DIOXIDE 29 MMOL/L (21-32); CHLORIDE 100 MMOL/L (98-107); CREATININE SERUM 0.78 MG/DL (0.60-1.30); GFR ESTIMATED > 60; GLUCOSE 120 MG/DL (70-105); POTASSIUM 4.6 MMOL/L (3.6-5.0); SODIUM 139 MMOL/L (135-145); TOTAL PROTEIN 6.7 GM/DL (6.4-8.2)
[2018-05-15 12:17] LABS: BILIRUBIN,URINE NEGATIVE (NEGATIVE); CLARITY,URINE SLIGHTLY CLOUDY; COLOR,URINE AMBER; GLUCOSE, URINE (UA) NEGATIVE (NEGATIVE); KETONES,URINE 2+ (NEGATIVE); LEUKOCYTE ESTERASE ,URINE 3+ (NEGATIVE); NITRITE,URINE POSITIVE (NEGATIVE); PH,URINE 5 (5-9); PROTEIN,URINE 2+ (NEGATIVE); UROBILINOGEN,URINE 4 MG/DL (NORMAL)
[2018-05-15 12:25] LABS: BACTERIA,URINE MODERATE /HPF; RBC,URINE RARE /HPF
--- NOTE | 2018-05-15 12:29 | Diagnostic Imaging Report ---
EXAM: CHEST 1 VIEW, AP/PA ONLY INDICATION: Weakness. COMPARISON: Chest radiograph 02/24/2018. FINDINGS: Normal heart size and central pulmonary vascularity. Mild hyperinflation, scattered scarring and chronic appearing prominence of interstitium. No dense consolidation, pleural effusion or pneumothorax. No acute osseous findings. Calcified aorta. IMPRESSION: No acute cardiopulmonary findings. Dictated by: Dictated on workstation # [id number]
--- NOTE | 2018-05-15 12:31 | Diagnostic Imaging Report ---
CLINICAL INDICATION: Patient with weakness. EXAM: Axial CT scan of the brain performed without IV contrast. COMPARISON: Head CT without IV contrast dated 10/30/2017. FINDINGS: There is no evidence of acute cerebral infarct, intracranial hemorrhage, or gross mass effect. There is diffuse brain parenchymal volume loss again seen. There are patchy and confluent areas of low-attenuation white matter changes within both cerebral hemispheres which has not significantly changed compared to the prior study. This is suspected to represent chronic small vessel ischemic disease and leukoaraiosis. There is normal barnes-white matter distinction. There is no significant midline shift or herniation. There is no evidence of hydrocephalus. The basal cisterns are unremarkable. The skull, extracranial soft tissue, and orbits are unremarkable. There is interval development of large amount of mucosal thickening and fluid in the sphenoid sinus. There is stable mild mucosal thickening in the ethmoid sinus. There is a cgcsm-ec-gqlktsha-sized mucous retention cyst in the right maxillary sinus which was not imaged on the prior study. Temporal bones show no significant abnormality. IMPRESSION: 1: Interval development of paranasal sinusitis. 2: Stable CT scan of the brain with diffuse brain parenchymal volume loss and diffuse chronic small vessel ischemic disease and leukoaraiosis. Dictated by: Dictated on workstation # [id number]
[2018-05-15] MEDS ORDERED: cefTRIAXone FOR IV USE 1,000 MG in NS (IVPB) 50 ML IV ONE (12:45)
--- OUTSIDE RECORDS SUMMARY | 2018-05-15 14:37 | XMS REPORT | CCD ---
Author Author [facility] Organization [facility] Address [address] [place] [address] Phone Care Team Providers Care Wireless Sales Expert Name Role Phone PP Unavailable CCM Unavailable Summary Purpose Interface Exchange Insurance Providers Payer name Policy type / Coverage type Covered libertarian ID Effective Begin Date Effective End Date WPS Medicare Part B Medicare Part B [id number] Unknown Unknown [facility] Medicare Part B [id number] Unknown Unknown Family history Brother Diagnosis Age At Onset Diabetes Unknown Skin cancer Unknown Father Diagnosis Age At Onset Heart disease Unknown Mother Diagnosis Age At Onset Hypothyroid Unknown Social History Social History Element Codes Description Effective Dates Marital status Unknown Single 12/05/2014 Number of children Unknown 0 12/05/2014 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/05/[address]: 6268250 Quit 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 quit 20-25 years ago 12/05/2014 Alcohol history Unknown occasionally drinks alcohol 12/05/2014 Allergies, Adverse Reactions, Alerts Substance Reaction Codes Entered Date Inactivated Date Status * NO KNOWN FOOD ALLERGIES Unknown 12/05/2014 No Inactive Date Active SULFA (SULFONAMIDES) nausea Unknown 09/04/2017 No Inactive Date Active Past Medical History Illness Codes Condition Status Onset Date Resolved Date Essential (primary) hypertension ICD-9: 401.1 ICD-10: I10 Active 02/07/2016 Unknown Localized edema ICD-9 : 782.3 ICD-10: R60.0 Active 02/26/2016 Unknown Low back pain ICD-9: 724.2 ICD-10: M54.5 Active 11/15/2015 Unknown Obstructive sleep apnea (adult) (pediatric) ICD-9: 327.23 ICD-10: G47.33 Active 03/09/2018 Unknown Other chronic pain ICD -9: 338.29 ICD-10: G89.29 Active 08/26/2016 Unknown Pressure ulcer of left buttock, stage 1 ICD-9: 707.05 ICD-10: L89.321 Active 03/09/2018 Unknown Atrophy of thyroid (acquired) ICD-9: 244.8 ICD-10: E03.4 Active 12/18/2016 Unknown Acute bronchitis, unspecified ICD-9: 466.0 ICD-10: J20.9 Active 11/15/2015 Unknown Cough ICD-9: 786.2 ICD-10: R05 Active 11/15/2015 Unknown Lymphedema, not elsewhere classified ICD-9: 457.1 ICD-10: I89.0 Active 02/19/2016 Unknown Other specified noninfective disorders of lymphatic vessels and lymph nodes ICD-9: 289.89 ICD-10: I89.8 Active 12/04/2017 Unknown Candidiasis of skin and nail ICD-9: 112.3 ICD-10: B37.2 Active 11/13/2017 Unknown Cellulitis of left lower limb ICD-9: 682.6 ICD-10: L03.116 Active 02/10/2017 Unknown Cellulitis of right lower limb ICD-9: 682.6 ICD-10: L03.115 Active 02/10/2017 Unknown Pain in left knee ICD- 9: 719.46 ICD-10: M25.562 Active 08/26/2016 Unknown Stiffness of left hand, not elsewhere classified ICD-9: 719.54 ICD-10: M25.642 Active 09/04/2017 Unknown Stiffness of right hand, not elsewhere classified ICD-9: 719.54 ICD-10: M25.641 Active 09/04/2017 Unknown Other skin changes ICD -9: 709.8 ICD-10: R23.8 Active 08/08/2017 Unknown Other viral warts ICD- 9: 078.19 ICD-10: B07.8 Active 08/08/2017 Unknown Encounter for immunization ICD-9: V04.81 ICD-10: Z23 Active 04/16/2017 Unknown Sick sinus syndrome ICD-9: 427.81 ICD-10: I49.5 Active 04/16/2017 Unknown Other abnormal glucose ICD-9: 790.29 ICD-10: R73.09 Active 01/21/2017 Unknown Other instability, left knee ICD-9: 718.86 ICD-10: M25.362 Active 08/26/2016 Unknown Abrasion of scalp, subsequent encounter ICD-9: V58.89 ICD-10: S00.01XD Active 02/18/2016 Unknown Contusion of left lower leg, subsequent encounter ICD-9: V58.89 ICD-10: S80.12XD Active 02/18/2016 Unknown Laceration without foreign body of left upper arm, subsequent encounter ICD-9: V58.89 ICD-10: S41.112D Active 02/18/2016 Unknown Abrasion of scalp, initial encounter ICD-9: 910.1 ICD-10: S00.01XA Active 02/07/2016 Unknown Contusion of left lower leg, initial encounter ICD-9: 924.10 ICD-10: S80.12XA Active 02/07/2016 Unknown Hypothyroidism, unspecified ICD-9: 244.9 ICD-10: E03.9 Active 12/04/2014 Unknown Laceration without foreign body of left upper arm, initial encounter ICD-9: 880.03 ICD-10: S41.112A Active 02/07/2016 Unknown Acute upper respiratory infection, unspecified ICD-9: 465.9 ICD-10: J06.9 Active 11/15/2015 Unknown Allergic rhinitis due to pollen ICD-9: 477.0 ICD-10: J30.1 Active 11/15/2015 Unknown Contusion of left lower leg, initial encounter ICD-9: 924.5 ICD-10: S80.12XA Active 06/18/2015 Unknown CELLULITIS ICD-9: 682.9 Active 04/02/2015 Unknown 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 Active 04/02/2015 Unknown Rosacea, acne ICD-9: 695.3 Active 02/26/2015 Unknown Right leg swelling ICD -9: 729.81 Active 01/25/2015 Unknown CELLULITIS OF LEG ICD- 9: 682.6 Active 01/15/2015 Unknown Diabetes Unknown Active 12/05/2014 Unknown Hyperlipidemia Unknown Active 12/05/2014 Unknown Hypertension Unknown Active 12/05/2014 Unknown Hypothryroidism Unknown Active 12/05/2014 Unknown Back pain ICD-9: 724.5 Active 12/04/2014 Unknown Chronic pain ICD-9: 338.29 Active 12/04/2014 Unknown Dysphagia ICD-9: 787.20 Active 12/04/2014 Unknown HYPOTHYROIDISM ICD-9: 244.9 Active 12/04/2014 Unknown Lymphedema ICD-9: 457.1 Active 12/04/2014 Unknown Sacroiliitis ICD-9: 720.2 Active 12/04/2014 Unknown Problems Condition Codes Effective Dates Condition Status Essential (primary) hypertension ICD-9: 401.1 ICD-10: I10 02/07/2016 Active Localized edema ICD-9 : 782.3 ICD-10: R60.0 02/26/2016 Active Low back pain ICD-9: 724.2 ICD-10: M54.5 11/15/2015 Active Obstructive sleep apnea (adult) (pediatric) ICD-9: 327.23 ICD-10: G47.33 03/09/2018 Active Other chronic pain ICD -9: 338.29 ICD-10: G89.29 08/26/2016 Active Pressure ulcer of left buttock, stage 1 ICD-9: 707.05 ICD-10: L89.321 03/09/2018 Active Atrophy of thyroid (acquired) ICD-9: 244.8 ICD-10: E03.4 12/18/2016 Active Acute bronchitis, unspecified ICD-9: 466.0 ICD-10: J20.9 11/15/2015 Active Cough ICD-9: 786.2 ICD-10: R05 11/15/2015 Active Lymphedema, not elsewhere classified ICD-9: 457.1 ICD-10: I89.0 02/19/2016 Active Other specified noninfective disorders of lymphatic vessels and lymph nodes ICD-9: 289.89 ICD-10: I89.8 12/04/2017 Active Candidiasis of skin and nail ICD-9: 112.3 ICD-10: B37.2 11/13/2017 Active Cellulitis of left lower limb ICD-9: 682.6 ICD-10: L03.116 02/10/2017 Active Cellulitis of right lower limb ICD-9: 682.6 ICD-10: L03.115 02/10/2017 Active Pain in left knee ICD- 9: 719.46 ICD-10: M25.562 08/26/2016 Active Stiffness of left hand, not elsewhere classified ICD-9: 719.54 ICD-10: M25.642 09/04/2017 Active Stiffness of right hand, not elsewhere classified ICD-9: 719.54 ICD-10: M25.641 09/04/2017 Active Other skin changes ICD -9: 709.8 ICD-10: R23.8 08/08/2017 Active Other viral warts ICD- 9: 078.19 ICD-10: B07.8 08/08/2017 Active Encounter for immunization ICD-9: V04.81 ICD-10: Z23 04/16/2017 Active Sick sinus syndrome ICD-9: 427.81 ICD-10: I49.5 04/16/2017 Active Other abnormal glucose ICD-9: 790.29 ICD-10: R73.09 01/21/2017 Active Other instability, left knee ICD-9: 718.86 ICD-10: M25.362 08/26/2016 Active Abrasion of scalp, subsequent encounter ICD-9: V58.89 ICD-10: S00.01XD 02/18/2016 Active Contusion of left lower leg, subsequent encounter ICD-9: V58.89 ICD-10: S80.12XD 02/18/2016 Active Laceration without foreign body of left upper arm, subsequent encounter ICD-9: V58.89 ICD-10: S41.112D 02/18/2016 Active Abrasion of scalp, initial encounter ICD-9: 910.1 ICD-10: S00.01XA 02/07/2016 Active Contusion of left lower leg, initial encounter ICD-9: 924.10 ICD-10: S80.12XA 02/07/2016 Active Hypothyroidism, unspecified ICD-9: 244.9 ICD-10: E03.9 12/04/2014 Active Laceration without foreign body of left upper arm, initial encounter ICD-9: 880.03 ICD-10: S41.112A 02/07/2016 Active Acute upper respiratory infection, unspecified ICD-9: 465.9 ICD-10: J06.9 11/15/2015 Active Allergic rhinitis due to pollen ICD-9: 477.0 ICD-10: J30.1 11/15/2015 Active Contusion of left lower leg, initial encounter ICD-9: 924.5 ICD-10: S80.12XA 06/18/2015 Active CELLULITIS ICD-9: 682.9 04/02/2015 Active 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 04/02/2015 Active Rosacea, acne ICD-9: 695.3 02/26/2015 Active Right leg swelling ICD -9: 729.81 01/25/2015 Active CELLULITIS OF LEG ICD- 9: 682.6 01/15/2015 Active Diabetes Unknown 12/05/2014 Active Hyperlipidemia Unknown 12/05/2014 Active Hypertension Unknown 12/05/2014 Active Hypothryroidism Unknown 12/05/2014 Active Back pain ICD-9: 724.5 12/04/2014 Active Chronic pain ICD-9: 338.29 12/04/2014 Active Dysphagia ICD-9: 787.20 12/04/2014 Active HYPOTHYROIDISM ICD-9: 244.9 12/04/2014 Active Lymphedema ICD-9: 457.1 12/04/2014 Active Sacroiliitis ICD-9: 720.2 12/04/2014 Active Medications Medication Codes Instructions Start Date Stop Date Status Fill Instructions oxycodone 5 mg tablet RxNorm: 9081806 1 Tablet(s) PO QID as needed 03/18/2018 04/16/2018 Active levothyroxine 88 mcg tablet RxNorm: 233073 1 Tablet(s) PO daily . Take with 100 mcg tablet. 02/19/2018 06/18/2018 Active spironolactone 50 mg tablet RxNorm: 384245 Tablet(s) TAKE 1 TABLET BY MOUTH DAILY 02/19/2018 No Stop Date Active levothyroxine 100 mcg tablet RxNorm: 951125 1 Tablet(s) PO daily . Take with 88 mcg tablet 02/19/2018 06/18/2018 Active levothyroxine 100 mcg tablet RxNorm: 530473 1 Tablet(s) PO daily . Take with 88 mcg tablet 02/19/2018 02/18/2018 Inactive levothyroxine 88 mcg tablet RxNorm: 034533 1 Tablet(s) PO daily . Take with 100 mcg tablet. 02/19/2018 02/18/2018 Inactive spironolactone 25 mg tablet RxNorm: 345985 1 Tablet(s) PO daily 02/12/2018 02/18/2018 Inactive pt will let you know when she is ready for the refill oxycodone 10 mg tablet RxNorm: 4558775 1 Tablet(s) PO TID as needed 02/12/2018 03/13/2018 Inactive oxycodone 10 mg tablet RxNorm: 6634212 1 Tablet(s) PO Q6 as needed 01/22/2018 02/11/2018 Inactive spironolactone 50 mg tablet RxNorm: 082904 TAKE 1 TABLET BY MOUTH DAILY 01/05/2018 02/11/2018 Inactive Generic For:ALDACTONE 50MG 01/05/2018 8:27:46 AM Kenalog 40 mg/mL suspension for injection RxNorm: 8429750 1 Milliliter(s) Inj 12/26/2017 12/26/2017 Inactive Zithromax Z-Fransisco 250 mg tablet RxNorm: 586013 1 Tablet(s) PO UD 12/26/2017 12/30/2017 Inactive oxycodone 10 mg tablet RxNorm: 3006436 1 Tablet(s) PO Q6 as needed 11/25/2017 12/24/2017 Inactive nystatin 100,000 unit/gram topical powder RxNorm: 998576 1 Application TOP BID 11/13/2017 No Stop Date Active nystatin 100,000 unit/gram topical cream RxNorm: 948303 Gram(s) TOP QID 11/12/2017 11/18/2017 Inactive nystatin 100,000 unit/gram topical cream RxNorm: 571775 Gram(s) TOP QID 11/12/2017 11/11/2017 Inactive Lasix 20 mg tablet RxNorm: 856456 1 Tablet(s) PO daily as needed edema 11/03/2017 11/07/2017 Inactive potassium chloride ER 10 mEq tablet,extended release RxNorm: 483859 1 Tablet(s) PO daily while on the lasix 11/03/201701/2018 Inactive Keflex 500 mg capsule RxNorm: 339202 1 Capsule(s) PO TID 201711/07/2017 Inactive potassium chloride ER 10 mEq tablet,extended release RxNorm: 701003 1 Tablet(s) PO daily while on the lasix 10/29/2017 Inactive Lasix 20 mg tablet RxNorm: 815128 1 Tablet(s) PO daily as needed edema 10/29/2017 10/31/2017 Inactive oxycodone 10 mg tablet RxNorm: 5310016 1 Tablet(s) PO Q6 as needed 09/29/2017 10/28/2017 Inactive levothyroxine 200 mcg tablet RxNorm: 923955 TAKE 1 TABLET BY MOUTH DAILY 09/01/2017 02/18/2018 Inactive Generic For:*SYNTHROID 0.2MG TAB 09/01/2017 8:36:32 AM Bactrim DS 800 mg-160 mg tablet RxNorm: 067329 1 Tablet(s) PO BID 08/07/2017 08/16/2017 Inactive Bactrim DS 800 mg-160 mg tablet RxNorm: 069239 1 Tablet(s) PO BID 08/07/2017 08/06/2017 Inactive oxycodone 10 mg tablet RxNorm: 8474562 1 Tablet(s) PO Q6 as needed 07/31/2017 08/29/2017 Inactive spironolactone 50 mg tablet RxNorm: 230764 1 Tablet(s) PO daily 06/30/2017 12/26/2017 Inactive Not due for a refill until next month nadolol 20 mg tablet RxNorm: 267089 1/2 Tablet(s) PO daily 11/28/2017 Inactive nadolol 20 mg tablet RxNorm: 291962 1 Tablet(s) PO daily 201611/28/2017 Inactive nadolol 20 mg tablet RxNorm: 665474 1/2 Tablet(s) PO daily 05/21/2017 Inactive oxycodone 10 mg tablet RxNorm: 5524959 1 Tablet(s) PO Q6 as needed 04/01/2017 04/30/2017 Inactive levothyroxine 200 mcg tablet RxNorm: 070114 TAKE 1 TABLET BY MOUTH DAILY 03/10/2017 08/31/2017 Inactive Generic For:*SYNTHROID 0.2MG TAB 03/10/2017 8:49:05 AM potassium chloride ER 10 mEq tablet,extended release RxNorm: 370821 1 Tablet(s) PO daily while on the lasix 02/18/2017 Inactive Lasix 20 mg tablet RxNorm: 091762 1 Tablet(s) PO daily as needed edema 02/18/2017 02/20/2017 Inactive Keflex 500 mg capsule RxNorm: 736576 1 Capsule(s) PO TID 201602/16/2017 Inactive Lasix 20 mg tablet RxNorm: 795528 1 Tablet(s) PO daily 201602/15/2017 Inactive potassium chloride ER 10 mEq tablet,extended release RxNorm: 518272 1 Tablet(s) PO daily while on the lasix 02/14/2017 Inactive Lasix 20 mg tablet RxNorm: 898308 1 Tablet(s) PO daily 201602/13/2017 Inactive potassium chloride ER 10 mEq tablet,extended release RxNorm: 673324 1 Tablet(s) PO daily while on the lasix 02/14/2017 Inactive oxycodone 10 mg tablet RxNorm: 9915727 1 Tablet(s) PO Q6 as needed 02/05/2017 03/06/2017 Inactive minocycline 50 mg tablet RxNorm: 682222 1 Tablet(s) PO Q72H 12/03/2017 Inactive spironolactone 50 mg tablet RxNorm: 097605 1 Tablet(s) PO daily 12/18/2016 06/15/2017 Inactive Not due for a refill until next month oxycodone 10 mg tablet RxNorm: 5633501 1 Tablet(s) PO Q6 as needed 12/05/2016 01/03/2017 Inactive nadolol 20 mg tablet RxNorm: 285746 1 Tablet(s) PO daily 201604/15/2017 Inactive oxycodone 10 mg tablet RxNorm: 8018167 1 Tablet(s) PO Q6 as needed 09/30/2016 10/29/2016 Inactive levothyroxine 200 mcg tablet RxNorm: 135953 TAKE 1 TABLET BY MOUTH DAILY 09/12/2016 03/09/2017 Inactive Generic For:*SYNTHROID 0.2MG TAB 09/12/2016 8:41:27 AM oxycodone 10 mg tablet RxNorm: 1974147 1 Tablet(s) PO Q6 as needed 08/06/2016 09/04/2016 Inactive oxycodone 10 mg tablet RxNorm: 4118112 1 Tablet(s) PO Q6 as needed 06/10/2016 07/09/2016 Inactive oxycodone 10 mg tablet RxNorm: 8139537 1 Tablet(s) PO Q6 as needed 04/05/2016 05/04/2016 Inactive levothyroxine 200 mcg tablet RxNorm: 217224 1 Tablet(s) PO daily 03/14/2016 09/09/2016 Inactive oxycodone 10 mg tablet RxNorm: 5237077 1 Tablet(s) PO Q6 as needed 02/08/2016 03/08/2016 Inactive Kenalog 40 mg/mL suspension for injection RxNorm: 7952076 Milliliter(s) Inj 11/16/2015 11/16/2015 Inactive Zithromax Z-Fransisco 250 mg tablet RxNorm: 764446 1 Tablet(s) PO UD 11/16/2015 11/20/2015 Inactive zpack, take probiotic while on abx oxycodone 10 mg tablet RxNorm: 8739321 1 Tablet(s) PO Q6 as needed 11/16/2015 02/07/2016 Inactive ceftriaxone 500 mg solution for injection RxNorm: 2650272 Inj 11/16/2015 11/16/2015 Inactive oxycodone 10 mg tablet RxNorm: 4553579 1 Tablet(s) PO Q6 as needed 10/11/2015 11/15/2015 Inactive levothyroxine 200 mcg tablet RxNorm: 353528 1 Tablet(s) PO daily 09/14/2015 03/11/2016 Inactive oxycodone 10 mg tablet RxNorm: 2085151 1 Tablet(s) PO Q6 as needed 08/10/2015 10/10/2015 Inactive Keflex 500 mg capsule RxNorm: 628983 1 Capsule(s) PO TID 201407/03/2015 Inactive Keflex 500 mg capsule RxNorm: 094956 1 Capsule(s) PO TID 201406/25/2015 Inactive oxycodone 10 mg tablet RxNorm: 0403020 1 Tablet(s) PO Q6 as needed 04/03/2015 08/09/2015 Inactive oxycodone 10 mg tablet RxNorm: 1540931 1 Tablet(s) PO Q6 as needed 02/14/2015 04/02/2015 Inactive Keflex 500 mg capsule RxNorm: 022998 1 Capsule(s) PO TID 201401/22/2015 Inactive Culturelle 10 billion cell capsule RxNorm: 141006 1 Capsule(s) PO daily 01/16/2015 02/14/2015 Inactive Dulcolax Stool Softener (docusate) 100 mg capsule RxNorm: 3689729 1 Capsule(s) PO daily 12/05/2014 02/11/2018 Inactive [SAVINGS FOR NON-COVERED DRUGS -- BIN:[id number], N: [id number], Group: XXXXX, ID# [id number], Questions: . THIS IS NOT INSURANCE.] Vitamin D3 2,000 unit capsule RxNorm: 038854 1 Capsule(s) PO daily No Start Date Active Ocuvite tablet RxNorm : 1 Tablet(s) PO BID No Start Date Active Finacea 15 % topical gel RxNorm: 9733181 TOP No Start Date Active Restasis 0.05 % eye drops in a dropperette RxNorm: 334391 1 Drop(s) OPH BID No Start Date Active minocycline 50 mg tablet RxNorm: 842925 1 Tablet(s) PO QHS No Start Date 01/20/2017 Inactive nadolol 20 mg tablet RxNorm: 592263 1 Tablet(s) PO daily No Start Date 11/05/2016 Inactive nadolol 20 mg tablet RxNorm: 032011 1 Tablet(s) PO daily No Start Date 11/05/2016 Inactive oxycodone 10 mg tablet RxNorm: 1361312 1 Tablet(s) PO Q6 as needed No Start Date 02/13/2015 Inactive Dulcolax Stool Softener (docusate) 100 mg capsule RxNorm: 5323147 1 Capsule(s) PO BID No Start Date 12/04/2014 Inactive Multivitamin 50 Plus tablet RxNorm: 1 Tablet(s) PO QAM No Start Date 02/11/2018 Inactive Synthroid 200mcg Oral RxNorm: oral No Start Date 09/13/2015 Inactive spironolactone 50 mg tablet RxNorm: 401376 1 Tablet(s) PO daily No Start Date 12/17/2016 Inactive spironolactone 50 mg tablet RxNorm: 475499 1 Tablet(s) PO daily No Start Date 02/11/2018 Inactive Medication Administered Medication Codes Instructions Start Date Status Kenalog 40 mg/mL suspension for injection RxNorm: 0770704 1Milliliter 12/26/2017 No longer Active ceftriaxone 500 mg solution for injection RxNorm: 9337537 11/16/2015 No longer Active Kenalog 40 mg/mL suspension for injection RxNorm: 6554848 Milliliter 11/16/2015 No longer Active Immunizations Vaccine Codes Date Status Influenza CVX: 141 04/16/2017 completed Influenza CVX: 141 08/26/2016 completed Assessments Condition Codes Effective Dates Other chronic pain ICD-10: G89.29 ICD-9: 338.29 03/09/2018 Essential (primary) hypertension ICD-10: I10 ICD-9: 401.1 03/09/2018 Pressure ulcer of left buttock, stage 1 ICD-10: L89.321 ICD-9: 707.05 03/09/2018 Low back pain ICD-10: M54.5 ICD-9: 724.2 03/09/2018 Localized edema ICD-10: R60.0 ICD-9: 782.3 03/09/2018 Obstructive sleep apnea (adult) (pediatric) ICD-10: G47.33 ICD-9: 327.23 03/09/2018 Atrophy of thyroid (acquired) ICD-10: E03.4 ICD-9: 244.8 02/12/2018 Cough ICD-10: R05 ICD-9: 786.2 12/26/2017 Acute bronchitis, unspecified ICD-10: J20.9 ICD-9: 466.0 12/26/2017 Other specified noninfective disorders of lymphatic vessels and lymph nodes ICD-10: I89.8 ICD-9: 289.89 12/04/2017 Candidiasis of skin and nail ICD-10: B37.2 ICD-9: 112.3 11/13/2017 Lymphedema, not elsewhere classified ICD-10: I89.0 ICD-9: 457.1 11/06/2017 Cellulitis of left lower limb ICD-10: L03.116 ICD-9: 682.6 11/03/2017 Cellulitis of right lower limb ICD-10: L03.115 ICD-9: 682.6 11/03/2017 Stiffness of left hand, not elsewhere classified ICD-10: M25.642 ICD-9: 719.54 09/04/2017 Stiffness of right hand, not elsewhere classified ICD-10: M25.641 ICD-9: 719.54 09/04/2017 Pain in left knee ICD-10: M25.562 ICD-9: 719.46 09/04/2017 Other viral warts ICD-10: B07.8 ICD-9: 078.19 08/08/2017 Other skin changes ICD-10: R23.8 ICD-9: 709.8 08/08/2017 Sick sinus syndrome ICD-10: I49.5 ICD-9: 427.81 04/16/2017 Encounter for immunization ICD-10: Z23 ICD-9: V04.81 04/16/2017 Other abnormal glucose ICD-10: R73.09 ICD-9: 790.29 01/21/2017 Other instability, left knee ICD-10: M25.362 ICD-9: 718.86 08/26/2016 Laceration without foreign body of left upper arm, subsequent encounter ICD-10: S41.112D ICD-9: V58.89 02/19/2016 Contusion of left lower leg, subsequent encounter ICD-10: S80.12XD ICD-9: V58.89 02/19/2016 Abrasion of scalp, subsequent encounter ICD-10: S00.01XD ICD-9: V58.89 02/19/2016 Laceration without foreign body of left upper arm, initial encounter ICD-10: S41.112A ICD-9: 880.03 02/08/2016 Abrasion of scalp, initial encounter ICD-10: S00.01XA ICD-9: 910.1 02/08/2016 Contusion of left lower leg, initial encounter ICD-10: S80.12XA ICD-9: 924.10 02/08/2016 Hypothyroidism, unspecified ICD-10: E03.9 ICD-9: 244.9 02/08/2016 Allergic rhinitis due to pollen ICD-10: J30.1 ICD-9: 477.0 11/16/2015 Acute upper respiratory infection, unspecified ICD-10: J06.9 ICD-9: 465.9 11/16/2015 Contusion of left lower leg, initial encounter ICD-10: S80.12XA ICD-9: 924.5 06/19/2015 CELLULITIS ICD-9: 682.9 04/03/2015 HYPOTHYROIDISM ICD-9: 244.9 04/03/2015 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 04/03/2015 Rosacea, acne ICD-9: 695.3 02/27/2015 Lymphedema ICD-9: 457.1 02/27/2015 Right leg swelling ICD-9: 729.81 2014 CELLULITIS OF LEG ICD-9: 682.6 2014 Sacroiliitis ICD-9: 720.2 12/05/2014 Chronic pain ICD-9: 338.29 12/05/2014 Dysphagia ICD-9: 787.20 12/05/2014 Back pain ICD-9: 724.5 12/05/2014 Reason For Visit Reason For Visit Effective Dates Notes Hospital Follow Up 03/09/2018 hypertension 02/12/2018 cough 12/26/2017 cellulitis 12/04/2017 rash 11/13/2017 cellulitis 11/06/2017 ER follow up - right leg cellulitis cellulitis 11/03/2017 cellulitis 10/29/2017 sores 09/04/2017 sores 08/08/2017 knee pain 05/29/2017 knee pain 04/16/2017 skin lesion 02/10/2017 hypertension 01/21/2017 she reports chronic edema knee pain 12/18/2016 knee pain 08/26/2016 edema 02/27/2016 wound follow up 02/19/2016 wound follow up 02/12/2016 hypothyroid 02/08/2016 cough 11/16/2015 lower leg pain 07/18/2015 lower leg pain 06/27/2015 lower leg pain 06/19/2015 cellulitis 04/03/2015 cellulitis 02/27/2015 cellulitis 01/26/2015 cellulitis 01/16/2015 hip pain 12/05/2014 Results Observation Observation Code Item Item Code Result Date Tsh Ord6 TSH (3rd IS) 0.07 uIU/mL 02/13/2018 Free T4 Cdi579 FREE T4 1.85 ng/dL 02/13/2018 %Hba1C Vfz557 % HbA1c 82238-0 5.9 % 01/21/2017 %Hba1C Rcr789 Gluc Ave 123 mg/dL 01/21/2017 Comp Metabolic Zdh633 NA 136 mEq/L 01/21/2017 Comp Metabolic Vkg500 K 4.3 mEq/L 01/21/2017 Comp Metabolic Jbz924 CL 99 mEq/L 01/21/2017 Comp Metabolic Pak475 CO2 30.0 mEq/L 01/21/2017 Comp Metabolic Zqf511 ANION GAP 11 01/21/2017 Comp Metabolic Quc008 GLUCOSE 234 mg/dL 01/21/2017 Comp Metabolic Lxs353 Creat 0.5 mg/dL 01/21/2017 Comp Metabolic Idq274 eGFR 115 ml/min/1.73m2 01/21/2017 Comp Metabolic Joj992 BUN 10 mg/dL 01/21/2017 Comp Metabolic Apo875 B/C Ratio 18.5 Ratio 01/21/2017 Comp Metabolic Tfc382 CALCIUM 8.8 mg/dL 01/21/2017 Comp Metabolic Roi440 ALK PHOS 74 U/L 01/21/2017 Comp Metabolic Dck239 AST(SGOT) 28 U/L 01/21/2017 Comp Metabolic Wai748 ALT(SGPT) 15 U/L 01/21/2017 Comp Metabolic Nij538 BILI T 1.1 mg/dL 01/21/2017 Comp Metabolic Mxu819 ALBUMIN 3.8 g/dL 01/21/2017 Comp Metabolic Xpz210 TPRO 5.8 g/dL 01/21/2017 Comp Metabolic Ykg499 GLOB 2.0 g/dL 01/21/2017 Comp Metabolic Ucc567 A/G Ratio 1.9 Ratio 01/21/2017 Comp Metabolic Exh400 Osmo 279 mOsmo 01/21/2017 Tsh Ord6 hTSH II 0.80 uIU/mL 04/03/2015 Bili D Ord93 BILI D 0.1 mg/dL 04/03/2015 Bili D Ord93 BILI I 0.9 mg/dL 04/03/2015 Free T4 Hbc367 FREE T4 1.27 ng/dL 04/03/2015 Cbc With Differential Ord2 WBC 3.0 K/uL 04/03/2015 Cbc With Differential Ord2 LYM 0.9 K/uL 04/03/2015 Cbc With Differential Ord2 LYM% 29.3 % 04/03/2015 Cbc With Differential Ord2 NEUT/GRAN 1.9 K/uL 04/03/2015 Cbc With Differential Ord2 NEUT/GRAN % 62.9 % 04/03/2015 Cbc With Differential Ord2 MID 0.2 K/uL 04/03/2015 Cbc With Differential Ord2 MID% 7.8 % 04/03/2015 Cbc With Differential Ord2 RBC 4.24 M/uL 04/03/2015 Cbc With Differential Ord2 HGB 12.7 g/dL 04/03/2015 Cbc With Differential Ord2 HCT 38.4 % 04/03/2015 Cbc With Differential Ord2 MCV 91 fL 04/03/2015 Cbc With Differential Ord2 MCH 30 pg 04/03/2015 Cbc With Differential Ord2 MCHC 33 g/dL 04/03/2015 Cbc With Differential Ord2 PLT 60 K/uL 04/03/2015 Cbc With Differential Ord2 RDW 15.6 % 04/03/2015 Comp Metabolic Fiw706 NA 136 mEq/L 04/03/2015 Comp Metabolic Eun054 K 4.3 mEq/L 04/03/2015 Comp Metabolic Sum190 CL 99 mEq/L 04/03/2015 Comp Metabolic Gbz746 CO2 29.0 mEq/L 04/03/2015 Comp Metabolic Oxn405 ANION GAP 12 04/03/2015 Comp Metabolic Waf231 GLUCOSE 120 mg/dL 04/03/2015 Comp Metabolic Avb941 Creat 0.5 mg/dL 04/03/2015 Comp Metabolic Etu561 eGFR 118 ml/min/1.73m2 04/03/2015 Comp Metabolic Ehm459 BUN 11 mg/dL 04/03/2015 Comp Metabolic Czn949 B/C Ratio 20.8 Ratio 04/03/2015 Comp Metabolic Uaz172 CALCIUM 9.3 mg/dL 04/03/2015 Comp Metabolic Bln300 ALK PHOS 61 U/L 04/03/2015 Comp Metabolic Hdo497 AST(SGOT) 28 U/L 04/03/2015 Comp Metabolic Orc530 ALT(SGPT) 16 U/L 04/03/2015 Comp Metabolic Oys243 BILI T 1.0 mg/dL 04/03/2015 Comp Metabolic Qtz202 ALBUMIN 4.1 g/dL 04/03/2015 Comp Metabolic [id number] TPRO 6.1 g/dL 04/03/2015 Comp Metabolic Vou261 GLOB 2.0 g/dL 04/03/2015 Comp Metabolic Ltq561 A/G Ratio 2.1 Ratio 04/03/2015 Comp Metabolic Wnf475 Osmo 273 mOsmo 04/03/2015 Review of Systems System Result Effective Dates Constitutional recent illness 03/09/2018 Constitutional No chills 03/09/2018 Constitutional fatigue 03/09/2018 Constitutional No fever 03/09/2018 Eyes No blindness 03/09/2018 Eyes No vision change 03/09/2018 Ears/Nose/Throat/Neck No headache 2017 Cardiovascular No chest pain/pressure 01/2018 Cardiovascular No dyspnea 03/09/2018 Cardiovascular edema 03/09/2018 Cardiovascular No palpitations 2017 Respiratory No cough 03/09/2018 Gastrointestinal No constipation 2017 Gastrointestinal No diarrhea 03/09/2018 Gastrointestinal No nausea 03/09/2018 Gastrointestinal No vomiting 03/09/2018 Musculoskeletal stiffness 03/09/2018 Musculoskeletal arthralgia(s) 03/09/2018 Neurologic No alteration of consciousness 03/09/2018 Neurologic No mental status change 2017 Psychiatric No anxiety 03/09/2018 Psychiatric No depression 03/09/2018 Musculoskeletal muscle weakness 2017 Dermatologic ecchymosis 03/09/2018 Constitutional No recent illness 2017 Constitutional No chills 02/12/2018 Constitutional fatigue 02/12/2018 Constitutional No fever 02/12/2018 Eyes No blindness 02/12/2018 Eyes No vision change 02/12/2018 Ears/Nose/Throat/Neck No headache 2017 Cardiovascular No chest pain/pressure 07/2018 Cardiovascular No dyspnea 02/12/2018 Cardiovascular No palpitations 2017 Respiratory No cough 02/12/2018 Gastrointestinal No constipation 2017 Gastrointestinal No diarrhea 02/12/2018 Gastrointestinal No nausea 02/12/2018 Gastrointestinal No vomiting 02/12/2018 Musculoskeletal stiffness 02/12/2018 Musculoskeletal arthralgia(s) 02/12/2018 Neurologic No alteration of consciousness 02/12/2018 Neurologic No mental status change 2017 Psychiatric No anxiety 02/12/2018 Psychiatric No depression 02/12/2018 Cardiovascular edema 02/12/2018 Respiratory No chest tightness 2017 Genitourinary/Nephrology urinary incontinence 02/12/2018 Genitourinary/Nephrology urinary frequency 02/12/2018 Neurologic weakness 02/12/2018 Dermatologic sores 02/12/2018 Constitutional recent illness 12/26/2017 Constitutional No anorexia 12/26/2017 Constitutional No night sweats 2017 Constitutional No chills 12/26/2017 Constitutional No diaphoresis 12/26/2017 Constitutional No fatigue 12/26/2017 Constitutional No fever 12/26/2017 Constitutional No insomnia 12/26/2017 Constitutional No malaise 12/26/2017 Constitutional No weight loss 12/26/2017 Constitutional No weight gain 12/26/2017 Eyes No eye discharge 12/26/2017 Eyes No eye erythema 12/26/2017 Ears/Nose/Throat/Neck No dizziness 2017 Ears/Nose/Throat/Neck nasal allergies Ears/Nose/Throat/Neck nasal discharge Ears/Nose/Throat/Neck No otalgia 2017 Ears/Nose/Throat/Neck No sinus congestion 12/26/2017 Ears/Nose/Throat/Neck No sore throat Cardiovascular No chest pain/pressure Respiratory No productive sputum 2017 Respiratory chest congestion 12/26/2017 Respiratory cough 12/26/2017 Gastrointestinal No vomiting 12/26/2017 Gastrointestinal No nausea 12/26/2017 Gastrointestinal No diarrhea 12/26/2017 Genitourinary/Nephrology No dysuria 12/26 Musculoskeletal arthralgia(s) 12/26/2017 Dermatologic No rash 12/26/2017 Neurologic No alteration of consciousness 12/26/2017 Constitutional No recent illness 2017 Constitutional No chills 12/04/2017 Constitutional No fever 12/04/2017 Eyes No blindness 12/04/2017 Eyes No vision change 12/04/2017 Ears/Nose/Throat/Neck No headache 2017 Cardiovascular No chest pain/pressure 10/2017 Cardiovascular No dyspnea 12/04/2017 Cardiovascular No palpitations 2017 Respiratory No cough 12/04/2017 Gastrointestinal No constipation 2017 Gastrointestinal No diarrhea 12/04/2017 Gastrointestinal No nausea 12/04/2017 Gastrointestinal No vomiting 12/04/2017 Genitourinary/Nephrology No dysuria 12/04 Genitourinary/Nephrology No hematuria 10/2017 Musculoskeletal stiffness 12/04/2017 Musculoskeletal arthralgia(s) 12/04/2017 Dermatologic acne rosacea 12/04/2017 Neurologic No alteration of consciousness 12/04/2017 Neurologic No mental status change 2017 Psychiatric No anxiety 12/04/2017 Psychiatric No depression 12/04/2017 Constitutional fatigue 12/04/2017 Cardiovascular edema 12/04/2017 Constitutional recent illness 11/13/2017 Constitutional No chills 11/13/2017 Constitutional No diaphoresis 11/13/2017 Constitutional No fever 11/13/2017 Eyes No eye erythema 11/13/2017 Ears/Nose/Throat/Neck No nasal discharge 11/13/2017 Cardiovascular No chest pain/pressure 07/2018 Respiratory No cough 11/13/2017 Respiratory No chest congestion 2017 Cardiovascular edema 11/13/2017 Musculoskeletal joint complaint 2017 Musculoskeletal arthralgia(s) 11/13/2017 Dermatologic rash 11/13/2017 Neurologic No alteration of consciousness 11/13/2017 Neurologic No mental status change 2017 Constitutional No recent illness 2017 Constitutional No fatigue 11/06/2017 Constitutional No fever 11/06/2017 Cardiovascular No chest pain/pressure 12/2017 Cardiovascular No dyspnea 11/06/2017 Cardiovascular edema 11/06/2017 Cardiovascular fatigue 11/06/2017 Cardiovascular No near-syncope/dizziness 11/06/2017 Cardiovascular exercise intolerance 11/06 Respiratory chest tightness 11/06/2017 Psychiatric No anxiety 11/06/2017 Psychiatric No depression 11/06/2017 Gastrointestinal No abdominal pain 2017 Musculoskeletal stiffness 11/06/2017 Musculoskeletal arthralgia(s) 11/06/2017 Constitutional No recent illness 2017 Constitutional No chills 10/29/2017 Constitutional No diaphoresis 10/29/2017 Constitutional No fever 10/29/2017 Eyes No eye erythema 10/29/2017 Ears/Nose/Throat/Neck No nasal discharge 10/29/2017 Cardiovascular No chest pain/pressure Respiratory No cough 10/29/2017 Dermatologic cellulitis 10/29/2017 Neurologic No alteration of consciousness 10/29/2017 Neurologic No mental status change 2017 Constitutional No recent illness 2017 Constitutional No chills 09/04/2017 Constitutional No fever 09/04/2017 Ears/Nose/Throat/Neck No headache 2017 Cardiovascular No chest pain/pressure 08/2017 Cardiovascular No dyspnea 09/04/2017 Cardiovascular No palpitations 2017 Respiratory No cough 09/04/2017 Gastrointestinal No constipation 2017 Gastrointestinal No diarrhea 09/04/2017 Gastrointestinal No nausea 09/04/2017 Gastrointestinal No vomiting 09/04/2017 Musculoskeletal stiffness 09/04/2017 Musculoskeletal arthralgia(s) 09/04/2017 Dermatologic sores 09/04/2017 Psychiatric No anxiety 09/04/2017 Psychiatric No depression 09/04/2017 Eyes No blindness 09/04/2017 Eyes No vision change 09/04/2017 Genitourinary/Nephrology No dysuria 09/04 Genitourinary/Nephrology No hematuria 08/2017 Dermatologic acne rosacea 09/04/2017 Neurologic No alteration of consciousness 09/04/2017 Neurologic No mental status change 2017 Cardiovascular edema 09/04/2017 Musculoskeletal joint complaint 2017 Constitutional No recent illness 2017 Constitutional No chills 08/08/2017 Constitutional No fever 08/08/2017 Ears/Nose/Throat/Neck No headache 2017 Cardiovascular No chest pain/pressure 12/2017 Cardiovascular No dyspnea 08/08/2017 Cardiovascular No palpitations 2017 Respiratory No cough 08/08/2017 Gastrointestinal No constipation 2017 Gastrointestinal No diarrhea 08/08/2017 Gastrointestinal No nausea 08/08/2017 Gastrointestinal No vomiting 08/08/2017 Musculoskeletal stiffness 08/08/2017 Musculoskeletal arthralgia(s) 08/08/2017 Psychiatric No anxiety 08/08/2017 Psychiatric No depression 08/08/2017 Dermatologic sores 08/08/2017 Constitutional No recent illness 2016 Constitutional No chills 05/29/2017 Constitutional No fever 05/29/2017 Eyes No blindness 05/29/2017 Eyes No vision change 05/29/2017 Ears/Nose/Throat/Neck No headache 2016 Cardiovascular No chest pain/pressure Cardiovascular No dyspnea 05/29/2017 Cardiovascular No palpitations 2016 Respiratory No cough 05/29/2017 Gastrointestinal No constipation 2016 Gastrointestinal No diarrhea 05/29/2017 Gastrointestinal No nausea 05/29/2017 Gastrointestinal No vomiting 05/29/2017 Genitourinary/Nephrology No dysuria 05/29 Genitourinary/Nephrology No hematuria Musculoskeletal stiffness 05/29/2017 Musculoskeletal arthralgia(s) 05/29/2017 Dermatologic acne rosacea 05/29/2017 Neurologic No alteration of consciousness 05/29/2017 Neurologic No mental status change 2016 Psychiatric No anxiety 05/29/2017 Psychiatric No depression 05/29/2017 Constitutional No recent illness 2016 Constitutional No chills 04/16/2017 Constitutional No fever 04/16/2017 Eyes No blindness 04/16/2017 Eyes No vision change 04/16/2017 Ears/Nose/Throat/Neck No headache 2016 Cardiovascular No chest pain/pressure Cardiovascular No dyspnea 04/16/2017 Cardiovascular No palpitations 2016 Respiratory No cough 04/16/2017 Gastrointestinal No constipation 2016 Gastrointestinal No diarrhea 04/16/2017 Gastrointestinal No nausea 04/16/2017 Gastrointestinal No vomiting 04/16/2017 Genitourinary/Nephrology No dysuria 04/16 Genitourinary/Nephrology No hematuria Musculoskeletal stiffness 04/16/2017 Musculoskeletal arthralgia(s) 04/16/2017 Dermatologic acne rosacea 04/16/2017 Neurologic No alteration of consciousness 04/16/2017 Neurologic No mental status change 2016 Psychiatric No anxiety 04/16/2017 Psychiatric No depression 04/16/2017 Constitutional No recent illness 2016 Constitutional No chills 02/10/2017 Constitutional No diaphoresis 02/10/2017 Constitutional No fever 02/10/2017 Eyes No eye erythema 02/10/2017 Ears/Nose/Throat/Neck No nasal discharge 02/10/2017 Ears/Nose/Throat/Neck No nasal allergies 02/10/2017 Cardiovascular No chest pain/pressure 05/2017 Cardiovascular No dyspnea 02/10/2017 Respiratory No cough 02/10/2017 Respiratory No dyspnea 02/10/2017 Gastrointestinal No abdominal pain 2016 Dermatologic sores 02/10/2017 Dermatologic erythema 02/10/2017 Neurologic No alteration of consciousness 02/10/2017 Neurologic No mental status change 2016 Constitutional No recent illness 2016 Constitutional No chills 01/21/2017 Constitutional No fever 01/21/2017 Eyes No blindness 01/21/2017 Eyes No vision change 01/21/2017 Ears/Nose/Throat/Neck No headache 2016 Cardiovascular No chest pain/pressure Cardiovascular No dyspnea 01/21/2017 Cardiovascular No palpitations 2016 Respiratory No cough 01/21/2017 Gastrointestinal No constipation 2016 Gastrointestinal No diarrhea 01/21/2017 Gastrointestinal No nausea 01/21/2017 Gastrointestinal No vomiting 01/21/2017 Genitourinary/Nephrology No dysuria 01/21 Genitourinary/Nephrology No hematuria Musculoskeletal stiffness 01/21/2017 Musculoskeletal arthralgia(s) 01/21/2017 Musculoskeletal No joint complaint 2016 Dermatologic acne rosacea 01/21/2017 Neurologic No alteration of consciousness 01/21/2017 Neurologic No mental status change 2016 Psychiatric No anxiety 01/21/2017 Psychiatric No depression 01/21/2017 Cardiovascular edema 01/21/2017 Constitutional No recent illness 2016 Constitutional No chills 12/18/2016 Constitutional No fever 12/18/2016 Eyes No blindness 12/18/2016 Eyes No vision change 12/18/2016 Ears/Nose/Throat/Neck No headache 2016 Cardiovascular No chest pain/pressure Cardiovascular No dyspnea 12/18/2016 Cardiovascular No palpitations 2016 Respiratory No cough 12/18/2016 Gastrointestinal No constipation 2016 Gastrointestinal No diarrhea 12/18/2016 Gastrointestinal No nausea 12/18/2016 Gastrointestinal No vomiting 12/18/2016 Genitourinary/Nephrology No dysuria 12/18 Genitourinary/Nephrology No hematuria Musculoskeletal stiffness 12/18/2016 Musculoskeletal arthralgia(s) 12/18/2016 Musculoskeletal joint complaint 2016 Dermatologic acne rosacea 12/18/2016 Neurologic No alteration of consciousness 12/18/2016 Neurologic No mental status change 2016 Psychiatric No anxiety 12/18/2016 Psychiatric No depression 12/18/2016 Constitutional No recent illness 2016 Constitutional No chills 08/26/2016 Constitutional No fever 08/26/2016 Eyes No blindness 08/26/2016 Eyes No vision change 08/26/2016 Ears/Nose/Throat/Neck No headache 2016 Cardiovascular No chest pain/pressure Cardiovascular No dyspnea 08/26/2016 Respiratory No cough 08/26/2016 Gastrointestinal No constipation 2016 Gastrointestinal No diarrhea 08/26/2016 Gastrointestinal No nausea 08/26/2016 Gastrointestinal No vomiting 08/26/2016 Genitourinary/Nephrology No dysuria 08/26 Genitourinary/Nephrology No hematuria Musculoskeletal No joint complaint 2016 Dermatologic acne rosacea 08/26/2016 Neurologic No alteration of consciousness 08/26/2016 Musculoskeletal stiffness 08/26/2016 Musculoskeletal arthralgia(s) 08/26/2016 Cardiovascular No palpitations 2016 Neurologic No mental status change 2016 Psychiatric No anxiety 08/26/2016 Psychiatric No depression 08/26/2016 Constitutional No recent illness 2015 Constitutional No anorexia 02/27/2016 Constitutional No chills 02/27/2016 Constitutional No fever 02/27/2016 Ears/Nose/Throat/Neck No dizziness 2015 Ears/Nose/Throat/Neck No headache 2015 Cardiovascular No chest pain/pressure Cardiovascular No dyspnea 02/27/2016 Cardiovascular edema 02/27/2016 Respiratory No cough 02/27/2016 Respiratory No dyspnea on exertion 2015 Respiratory No dyspnea 02/27/2016 Gastrointestinal No abdominal pain 2015 Gastrointestinal No nausea 02/27/2016 Gastrointestinal No vomiting 02/27/2016 Genitourinary/Nephrology No dysuria 02/26 Musculoskeletal joint complaint 2015 Dermatologic sores 02/27/2016 Dermatologic ecchymosis 02/27/2016 Neurologic No alteration of consciousness 02/27/2016 Constitutional No recent illness 2015 Constitutional No chills 02/19/2016 Constitutional No fever 02/19/2016 Ears/Nose/Throat/Neck No headache 2015 Cardiovascular No chest pain/pressure Cardiovascular No dyspnea 02/19/2016 Respiratory No cough 02/19/2016 Genitourinary/Nephrology No dysuria 02/18 Musculoskeletal joint complaint 2015 Neurologic No alteration of consciousness 02/19/2016 Constitutional No anorexia 02/19/2016 Ears/Nose/Throat/Neck No dizziness 2015 Cardiovascular edema 02/19/2016 Gastrointestinal No nausea 02/19/2016 Gastrointestinal No vomiting 02/19/2016 Gastrointestinal No abdominal pain 2015 Respiratory No dyspnea 02/19/2016 Respiratory No dyspnea on exertion 2015 Dermatologic sores 02/19/2016 Dermatologic ecchymosis 02/19/2016 Constitutional No recent illness 2015 Constitutional No anorexia 02/08/2016 Constitutional No chills 02/08/2016 Constitutional No fever 02/08/2016 Ears/Nose/Throat/Neck No dizziness 2015 Ears/Nose/Throat/Neck No headache 2015 Cardiovascular No chest pain/pressure 02/2016 Cardiovascular No dyspnea 02/08/2016 Cardiovascular edema 02/08/2016 Respiratory No cough 02/08/2016 Respiratory No dyspnea on exertion 2015 Respiratory No dyspnea 02/08/2016 Gastrointestinal No abdominal pain 2015 Gastrointestinal No nausea 02/08/2016 Gastrointestinal No vomiting 02/08/2016 Genitourinary/Nephrology No dysuria 02/07 Musculoskeletal joint complaint 2015 Dermatologic sores 02/08/2016 Dermatologic ecchymosis 02/08/2016 Neurologic No alteration of consciousness 02/08/2016 Constitutional recent illness 11/16/2015 Constitutional No anorexia 11/16/2015 Constitutional No night sweats 2015 Constitutional diaphoresis 11/16/2015 Constitutional No chills 11/16/2015 Constitutional No fatigue 11/16/2015 Constitutional No fever 11/16/2015 Constitutional No insomnia 11/16/2015 Constitutional No malaise 11/16/2015 Constitutional No weight loss 11/16/2015 Constitutional No weight gain 11/16/2015 Eyes No eye discharge 11/16/2015 Eyes No eye erythema 11/16/2015 Ears/Nose/Throat/Neck No dizziness 2015 Ears/Nose/Throat/Neck No headache 2015 Ears/Nose/Throat/Neck nasal allergies Ears/Nose/Throat/Neck nasal discharge Ears/Nose/Throat/Neck No otalgia 2015 Ears/Nose/Throat/Neck sinus congestion Ears/Nose/Throat/Neck No sore throat Cardiovascular No chest pain/pressure Cardiovascular No dyspnea 11/16/2015 Respiratory No productive sputum 2015 Respiratory cough 11/16/2015 Gastrointestinal No abdominal pain 2015 Gastrointestinal No diarrhea 11/16/2015 Gastrointestinal No constipation 2015 Gastrointestinal nausea 11/16/2015 Gastrointestinal No vomiting 11/16/2015 Genitourinary/Nephrology No dysuria 11/15 Musculoskeletal joint complaint 2015 Dermatologic No rash 11/16/2015 Dermatologic sores 11/16/2015 Neurologic No alteration of consciousness 11/16/2015 Musculoskeletal back pain 11/16/2015 Constitutional No recent illness 2014 Constitutional No chills 07/18/2015 Constitutional No fever 07/18/2015 Ears/Nose/Throat/Neck No headache 2014 Cardiovascular No chest pain/pressure Cardiovascular No dyspnea 07/18/2015 Respiratory No cough 07/18/2015 Gastrointestinal No constipation 2014 Gastrointestinal No diarrhea 07/18/2015 Gastrointestinal No nausea 07/18/2015 Gastrointestinal No vomiting 07/18/2015 Genitourinary/Nephrology No dysuria 07/18 Genitourinary/Nephrology No hematuria Musculoskeletal No joint complaint 2014 Dermatologic acne rosacea 07/18/2015 Neurologic No alteration of consciousness 07/18/2015 Eyes No blindness 07/18/2015 Eyes No vision change 07/18/2015 Constitutional No recent illness 2014 Constitutional No chills 06/27/2015 Constitutional No fever 06/27/2015 Ears/Nose/Throat/Neck No headache 2014 Cardiovascular No chest pain/pressure Cardiovascular No dyspnea 06/27/2015 Respiratory No cough 06/27/2015 Gastrointestinal No constipation 2014 Gastrointestinal No diarrhea 06/27/2015 Gastrointestinal No nausea 06/27/2015 Gastrointestinal No vomiting 06/27/2015 Neurologic No alteration of consciousness 06/27/2015 Dermatologic erythema 06/27/2015 Dermatologic No cellulitis 06/27/2015 Constitutional No recent illness 2014 Constitutional No chills 06/19/2015 Constitutional No fever 06/19/2015 Ears/Nose/Throat/Neck No headache 2014 Cardiovascular No chest pain/pressure Cardiovascular No dyspnea 06/19/2015 Respiratory No cough 06/19/2015 Gastrointestinal No constipation 2014 Gastrointestinal No diarrhea 06/19/2015 Gastrointestinal No nausea 06/19/2015 Gastrointestinal No vomiting 06/19/2015 Neurologic No alteration of consciousness 06/19/2015 Constitutional No recent illness 2014 Constitutional No chills 04/03/2015 Constitutional No fever 04/03/2015 Ears/Nose/Throat/Neck No headache 2014 Cardiovascular No chest pain/pressure Cardiovascular No dyspnea 04/03/2015 Respiratory No cough 04/03/2015 Gastrointestinal No constipation 2014 Gastrointestinal No diarrhea 04/03/2015 Gastrointestinal No nausea 04/03/2015 Gastrointestinal No vomiting 04/03/2015 Genitourinary/Nephrology No dysuria 04/03 Genitourinary/Nephrology No hematuria Musculoskeletal No joint complaint 2014 Dermatologic acne rosacea 04/03/2015 Neurologic No alteration of consciousness 04/03/2015 Dermatologic acne rosacea 02/27/2015 Constitutional No recent illness 2014 Constitutional No chills 02/27/2015 Constitutional No fever 02/27/2015 Ears/Nose/Throat/Neck No headache 2014 Cardiovascular No chest pain/pressure Cardiovascular No dyspnea 02/27/2015 Respiratory No cough 02/27/2015 Gastrointestinal No constipation 2014 Gastrointestinal No diarrhea 02/27/2015 Gastrointestinal No nausea 02/27/2015 Gastrointestinal No vomiting 02/27/2015 Genitourinary/Nephrology No dysuria 02/27 Genitourinary/Nephrology No hematuria Musculoskeletal No joint complaint 2014 Neurologic No alteration of consciousness 02/27/2015 Constitutional No recent illness 2014 Constitutional No chills 01/26/2015 Constitutional No fever 01/26/2015 Ears/Nose/Throat/Neck No headache 2014 Cardiovascular No chest pain/pressure Cardiovascular No dyspnea 01/26/2015 Respiratory No cough 01/26/2015 Gastrointestinal No constipation 2014 Gastrointestinal No diarrhea 01/26/2015 Gastrointestinal No nausea 01/26/2015 Gastrointestinal No vomiting 01/26/2015 Genitourinary/Nephrology No dysuria 01/26 Genitourinary/Nephrology No hematuria Musculoskeletal No joint complaint 2014 Dermatologic No rash 01/26/2015 Constitutional No recent illness 2014 Constitutional No chills 01/16/2015 Constitutional No fever 01/16/2015 Ears/Nose/Throat/Neck No headache 2014 Cardiovascular No dyspnea 01/16/2015 Cardiovascular No chest pain/pressure Respiratory No cough 01/16/2015 Gastrointestinal No constipation 2014 Gastrointestinal No diarrhea 01/16/2015 Gastrointestinal No vomiting 01/16/2015 Gastrointestinal No nausea 01/16/2015 Genitourinary/Nephrology No dysuria 01/16 Genitourinary/Nephrology No hematuria Musculoskeletal No joint complaint 2014 Dermatologic No rash 01/16/2015 Constitutional No chills 12/05/2014 Constitutional No diaphoresis 12/05/2014 Constitutional No fatigue 12/05/2014 Constitutional No fever 12/05/2014 Constitutional No insomnia 12/05/2014 Constitutional No malaise 12/05/2014 Constitutional No recent illness 2014 Ears/Nose/Throat/Neck No dizziness 2014 Ears/Nose/Throat/Neck No sore throat 11/2014 Cardiovascular No chest pain/pressure 11/2014 Cardiovascular edema 12/05/2014 Cardiovascular No fatigue 12/05/2014 Cardiovascular No palpitations 2014 Respiratory No chest congestion 2014 Respiratory No cough 12/05/2014 Gastrointestinal No abdominal pain 2014 Gastrointestinal No constipation 2014 Gastrointestinal No diarrhea 12/05/2014 Gastrointestinal No nausea 12/05/2014 Gastrointestinal No vomiting 12/05/2014 Dermatologic rash 12/05/2014 Neurologic No alteration of consciousness 12/05/2014 Neurologic No mental status change 2014 Musculoskeletal stiffness 12/05/2014 Musculoskeletal arthralgia(s) 12/05/2014 Musculoskeletal joint complaint 2014 Musculoskeletal back pain 12/05/2014 Genitourinary/Nephrology No dysuria 12/05 Genitourinary/Nephrology No nocturia 11/2014 Eyes No vision change 12/05/2014 Psychiatric No anxiety 12/05/2014 Psychiatric No depression 12/05/2014 Physical Exam Exam Name System Name Item Name Status Result Effective Dates Notes Full Exam - General 1994 Constitutional general appearance Development: well developed 03/09/2018 None Full Exam - General 1994 Constitutional general appearance Development: appears stated age 0803/09/2018 None Full Exam - General 1994 Constitutional general appearance Hygiene/Attention to Grooming: good hygiene 03/09/2018 None Full Exam - General 1994 Eyes conjunctiva /eyelids Overall: conjunctiva clear 03/09/2018 None Full Exam - General 1994 Eyes conjunctiva /eyelids Overall: cornea clear 03/09/2018 None Full Exam - General 1994 Eyes conjunctiva /eyelids Overall: eyelids normal 03/09/2018 None Full Exam - General 1994 Eyes pupils and irises Overall: pupils equal, round, reactive to light and accomodation 03/09/2018 None Full Exam - General 1994 Ears/Nose/Throat external ear Overall: normal appearance 03/09/2018 None Full Exam - General 1994 Ears/Nose/Throat lips/teeth/gingiva Overall: benign lips 03/09/2018 None Full Exam - General 1994 Ears/Nose/Throat lips/teeth/gingiva Overall: normal dentition 03/09/2018 None Full Exam - General 1994 Ears/Nose/Throat oral cavity/pharynx/larynx Overall: oral mucosa clear 03/09/2018 None Full Exam - General 1994 Respiratory auscultation Overall: breath sounds clear bilaterally 03/09/2018 None Full Exam - General 1994 Respiratory respiratory effort/rhythm Overall: no retractions 03/09/2018 None Full Exam - General 1994 Respiratory respiratory effort/rhythm Overall: normal rate 03/09/2018 None Full Exam - General 1995 Cardiovascular extremities Overall: no clubbing 03/09/2018 None Full Exam - General 1994 Cardiovascular extremities Edema present: pitting 03/09/2018 None Full Exam - General 1994 Cardiovascular extremities Edema present: severity 1+ - 4 +: 1+ 03/09/2018 None Full Exam - General 1994 Cardiovascular auscultation of heart Rate: regular rate 03/09/2018 None Full Exam - General 1994 Cardiovascular auscultation of heart Murmur: previously known murmur unchanged 03/09/2018 None Full Exam - General 1994 Cardiovascular auscultation of heart Systolic murmur: holosystolic 03/09/2018 None Full Exam - General 1994 Cardiovascular auscultation of heart Systolic murmur grade: III/ 03/09/2018 None Full Exam - General 1994 Abdomen abdominal exam Overall: no tenderness 03/09/2018 None Full Exam - General 1994 Abdomen abdominal exam Overall: normal bowel sounds 03/09/2018 None Full Exam - General 1994 Musculoskeletal lower extremity Palpation - knee: crepitus 03/09/2018 None Full Exam - General 1994 Musculoskeletal gait and station Overall: normal gait 03/09/2018 None Full Exam - General 1994 Musculoskeletal gait and station Overall: normal station 03/09/2018 None Full Exam - General 1994 Musculoskeletal head and neck Overall: cervical spine benign 03/09/2018 None Full Exam - General 1994 Neurologic cranial nerves Overall: crainial nerves 2 - 12 grossly intact 03/09/2018 None Full Exam - General 1994 Psychiatric orientation/consciousness Overall: oriented to person, place and time 03/09/2018 None Full Exam - General 1994 Psychiatric mood and affect Overall: normal mood and affect 03/09/2018 None Full Exam - General 1994 Integument inspection of skin Location: left leg 03/09/2018 bruising from knee to foot with small hematoma on lateral left leg Full Exam - General 1994 Integument inspection of skin Location: face 03/09/2018 bruising right cheek Full Exam - General 1994 Integument inspection of skin Location: buttocks 03/09/2018 left gluteus with small pressure ulcer/abrasion - healed pressure ulcer below abrasion and on right buttock Full Exam - General 1994 Constitutional general appearance Development: well developed 02/12/2018 None Full Exam - General 1994 Constitutional general appearance Development: appears stated age 0702/12/2018 None Full Exam - General 1994 Constitutional general appearance Hygiene/Attention to Grooming: good hygiene 02/12/2018 None Full Exam - General 1994 Eyes conjunctiva /eyelids Overall: conjunctiva clear 02/12/2018 None Full Exam - General 1994 Eyes conjunctiva /eyelids Overall: cornea clear 02/12/2018 None Full Exam - General 1994 Eyes conjunctiva /eyelids Overall: eyelids normal 02/12/2018 None Full Exam - General 1994 Eyes pupils and irises Overall: pupils equal, round, reactive to light and accomodation 02/12/2018 None Full Exam - General 1994 Ears/Nose/Throat external ear Overall: normal appearance 02/12/2018 None Full Exam - General 1994 Ears/Nose/Throat lips/teeth/gingiva Overall: benign lips 02/12/2018 None Full Exam - General 1994 Ears/Nose/Throat lips/teeth/gingiva Overall: normal dentition 02/12/2018 None Full Exam - General 1994 Ears/Nose/Throat oral cavity/pharynx/larynx Overall: oral mucosa clear 02/12/2018 None Full Exam - General 1994 Respiratory auscultation Overall: breath sounds clear bilaterally 02/12/2018 None Full Exam - General 1994 Respiratory respiratory effort/rhythm Overall: no retractions 02/12/2018 None Full Exam - General 1994 Respiratory respiratory effort/rhythm Overall: normal rate 02/12/2018 None Full Exam - General 1994 Cardiovascular extremities Overall: no clubbing 02/12/2018 None Full Exam - General 1994 Cardiovascular extremities Edema present: pitting 02/12/2018 None Full Exam - General 1994 Cardiovascular extremities Edema present: severity 1+ - 4 +: 1+ 02/12/2018 None Full Exam - General 1994 Cardiovascular auscultation of heart Rate: regular rate 02/12/2018 None Full Exam - General 1994 Cardiovascular auscultation of heart Murmur: previously known murmur unchanged 02/12/2018 None Full Exam - General 1994 Cardiovascular auscultation of heart Systolic murmur: holosystolic 02/12/2018 None Full Exam - General 1994 Cardiovascular auscultation of heart Systolic murmur grade: III/ 02/12/2018 None Full Exam - General 1994 Abdomen abdominal exam Overall: no tenderness 02/12/2018 None Full Exam - General 1994 Abdomen abdominal exam Overall: normal bowel sounds 02/12/2018 None Full Exam - General 1994 Musculoskeletal lower extremity Palpation - knee: crepitus 02/12/2018 None Full Exam - General 1994 Musculoskeletal gait and station Overall: normal gait 02/12/2018 None Full Exam - General 1994 Musculoskeletal gait and station Overall: normal station 02/12/2018 None Full Exam - General 1994 Musculoskeletal head and neck Overall: cervical spine benign 02/12/2018 None Full Exam - General 1994 Neurologic cranial nerves Overall: crainial nerves 2 - 12 grossly intact 02/12/2018 None Full Exam - General 1994 Psychiatric orientation/consciousness Overall: oriented to person, place and time 02/12/2018 None Full Exam - General 1994 Psychiatric mood and affect Overall: normal mood and affect 02/12/2018 None Full Exam - General 1994 Constitutional general appearance Development: well developed 12/26/2017 None Full Exam - General 1994 Constitutional general appearance Development: appears stated age 0512/26/2017 None Full Exam - General 1994 Constitutional general appearance Hygiene/Attention to Grooming: good hygiene 12/26/2017 None Full Exam - General 1994 Eyes conjunctiva /eyelids Overall: conjunctiva clear 12/26/2017 None Full Exam - General 1994 Eyes conjunctiva /eyelids Overall: cornea clear 12/26/2017 None Full Exam - General 1994 Eyes conjunctiva /eyelids Overall: eyelids normal 12/26/2017 None Full Exam - General 1994 Eyes pupils and irises Overall: pupils equal, round, reactive to light and accomodation 12/26/2017 None Full Exam - General 1994 Ears/Nose/Throat external ear Overall: normal appearance 12/26/2017 None Full Exam - General 1994 Ears/Nose/Throat lips/teeth/gingiva Overall: benign lips 12/26/2017 None Full Exam - General 1994 Ears/Nose/Throat lips/teeth/gingiva Overall: normal dentition 12/26/2017 None Full Exam - General 1994 Ears/Nose/Throat oral cavity/pharynx/larynx Overall: oral mucosa clear 12/26/2017 None Full Exam - General 1994 Respiratory auscultation Overall: breath sounds clear bilaterally 12/26/2017 None Full Exam - General 1994 Respiratory respiratory effort/rhythm Overall: no retractions 12/26/2017 None Full Exam - General 1994 Respiratory respiratory effort/rhythm Overall: normal rate 12/26/2017 None Full Exam - General 1994 Cardiovascular extremities Overall: no clubbing 12/26/2017 None Full Exam - General 1994 Cardiovascular extremities Edema present: pitting 12/26/2017 None Full Exam - General 1994 Cardiovascular extremities Edema present: severity 1+ - 4 +: 1+ 12/26/2017 None Full Exam - General 1994 Cardiovascular auscultation of heart Rate: regular rate 12/26/2017 None Full Exam - General 1994 Cardiovascular auscultation of heart Murmur: previously known murmur unchanged 12/26/2017 None Full Exam - General 1994 Cardiovascular auscultation of heart Systolic murmur: holosystolic 12/26/2017 None Full Exam - General 1994 Cardiovascular auscultation of heart Systolic murmur grade: III/ 12/26/2017 None Full Exam - General 1994 Abdomen abdominal exam Overall: no tenderness 12/26/2017 None Full Exam - General 1994 Abdomen abdominal exam Overall: normal bowel sounds 12/26/2017 None Full Exam - General 1994 Musculoskeletal lower extremity Palpation - knee: crepitus 12/26/2017 None Full Exam - General 1994 Musculoskeletal gait and station Overall: normal gait 12/26/2017 None Full Exam - General 1994 Musculoskeletal gait and station Overall: normal station 12/26/2017 None Full Exam - General 1994 Musculoskeletal head and neck Overall: cervical spine benign 12/26/2017 None Full Exam - General 1994 Neurologic deep tendon reflexes Overall: deep tendon reflexes intact 12/26/2017 None Full Exam - General 1994 Neurologic cranial nerves Overall: crainial nerves 2 - 12 grossly intact 12/26/2017 None Full Exam - General 1994 Psychiatric orientation/consciousness Overall: oriented to person, place and time 12/26/2017 None Full Exam - General 1994 Psychiatric mood and affect Overall: normal mood and affect 12/26/2017 None Full Exam - General 1994 Constitutional general appearance Development: well developed 12/04/2017 None Full Exam - General 1994 Constitutional general appearance Development: appears stated age 0512/04/2017 None Full Exam - General 1994 Constitutional general appearance Hygiene/Attention to Grooming: good hygiene 12/04/2017 None Full Exam - General 1994 Eyes conjunctiva /eyelids Overall: conjunctiva clear 12/04/2017 None Full Exam - General 1994 Eyes conjunctiva /eyelids Overall: cornea clear 12/04/2017 None Full Exam - General 1994 Eyes conjunctiva /eyelids Overall: eyelids normal 12/04/2017 None Full Exam - General 1994 Eyes pupils and irises Overall: pupils equal, round, reactive to light and accomodation 12/04/2017 None Full Exam - General 1994 Ears/Nose/Throat external ear Overall: normal appearance 12/04/2017 None Full Exam - General 1994 Ears/Nose/Throat lips/teeth/gingiva Overall: benign lips 12/04/2017 None Full Exam - General 1994 Ears/Nose/Throat lips/teeth/gingiva Overall: normal dentition 12/04/2017 None Full Exam - General 1994 Ears/Nose/Throat oral cavity/pharynx/larynx Overall: oral mucosa clear 12/04/2017 None Full Exam - General 1994 Respiratory auscultation Overall: breath sounds clear bilaterally 12/04/2017 None Full Exam - General 1994 Respiratory respiratory effort/rhythm Overall: no retractions 12/04/2017 None Full Exam - General 1994 Respiratory respiratory effort/rhythm Overall: normal rate 12/04/2017 None Full Exam - General 1994 Cardiovascular extremities Overall: no clubbing 12/04/2017 None Full Exam - General 1994 Cardiovascular extremities Edema present: pitting 12/04/2017 None Full Exam - General 1994 Cardiovascular extremities Edema present: severity 1+ - 4 +: 1+ 12/04/2017 None Full Exam - General 1994 Cardiovascular auscultation of heart Rate: regular rate 12/04/2017 None Full Exam - General 1994 Cardiovascular auscultation of heart Murmur: previously known murmur unchanged 12/04/2017 None Full Exam - General 1994 Cardiovascular auscultation of heart Systolic murmur: holosystolic 12/04/2017 None Full Exam - General 1994 Cardiovascular auscultation of heart Systolic murmur grade: III/ 12/04/2017 None Full Exam - General 1994 Abdomen abdominal exam Overall: no tenderness 12/04/2017 None Full Exam - General 1994 Abdomen abdominal exam Overall: normal bowel sounds 12/04/2017 None Full Exam - General 1994 Musculoskeletal lower extremity Palpation - knee: crepitus 12/04/2017 None Full Exam - General 1994 Musculoskeletal gait and station Overall: normal gait 12/04/2017 None Full Exam - General 1994 Musculoskeletal gait and station Overall: normal station 12/04/2017 None Full Exam - General 1994 Musculoskeletal head and neck Overall: cervical spine benign 12/04/2017 None Full Exam - General 1994 Neurologic cranial nerves Overall: crainial nerves 2 - 12 grossly intact 12/04/2017 None Full Exam - General 1994 Psychiatric orientation/consciousness Overall: oriented to person, place and time 12/04/2017 None Full Exam - General 1994 Psychiatric mood and affect Overall: normal mood and affect 12/04/2017 None Full Exam - Dermatology Constitutional general appearance Overall: well nourished 11/13/2017 None Full Exam - Dermatology Constitutional general appearance Overall: well developed 11/13/2017 None Full Exam - Dermatology Constitutional general appearance Overall: in no acute distress 11/13/2017 None Full Exam - Dermatology Eyes conjunctiva/ eyelids Overall: clear conjunctiva bilaterally 11/13/2017 None Full Exam - Dermatology Eyes conjunctiva/ eyelids Overall: clear corneas 11/13/2017 None Full Exam - Dermatology Respiratory respiratory effort/rhythm Overall: no retractions 11/13/2017 None Full Exam - Dermatology Respiratory respiratory effort/rhythm Overall: normal rate 11/13/2017 None Full Exam - Dermatology Musculoskeletal gait and station Gait: unable to turn quickly 11/13/2017 None Full Exam - Dermatology Integument insp & palp - head/face Location: on the right eyebrow 11/13/2017 healing ecchymosis Full Exam - Dermatology Integument insp & palp - head/face Location: on the right cheek 11/13/2017 healing ecchymosis Full Exam - Dermatology Integument insp & palp - abdomen Lesion: patch 11/13/2017 None Full Exam - Dermatology Integument insp & palp - abdomen Location: on the lower abdomen 11/13/2017 None Full Exam - Dermatology Integument insp & palp - abdomen Color: erythematous 11/13/2017 None Full Exam - Dermatology Integument insp & palp - genitalia/groin/buttocks Lesion: patch 11/13/2017 None Full Exam - Dermatology Integument insp & palp - genitalia/groin/buttocks Location: on the left groin 11/13/2017 None Full Exam - Dermatology Integument insp & palp - genitalia/groin/buttocks Location: on the right groin 11/13/2017 None Full Exam - Dermatology Integument insp & palp - genitalia/groin/buttocks Color: erythematous 11/13/2017 None Full Exam - Dermatology Psychiatric orientation Overall: oriented to person, place and time 11/13/2017 None Full Exam - Dermatology Psychiatric mood and affect Overall: normal mood and affect 11/13/2017 None Full Exam - Dermatology Integument insp & palp - left lower extremity Lesion: cellulitis 11/06/2017 None Full Exam - Dermatology Integument insp & palp - left lower extremity Location: on the epperson 11/06/2017 None Full Exam - Dermatology Integument insp & palp - left lower extremity Color: erythematous 11/06/2017 None Full Exam - Dermatology Integument insp & palp - left lower extremity Appearance: moist 11/06/2017 None Full Exam - Dermatology Integument insp & palp - right lower extremity Location: on the epperson 11/06/2017 None Full Exam - Dermatology Integument insp & palp - right lower extremity Color: erythematous 11/06/2017 ecchymosis Full Exam - Dermatology Integument insp & palp - right lower extremity Appearance: tender 11/06/2017 None Full Exam - Dermatology Integument insp & palp - right lower extremity Appearance: edematous 11/06/2017 None Full Exam - Dermatology Constitutional general appearance Overall: well groomed 11/06/2017 None Full Exam - Dermatology Constitutional general appearance Overall: well developed 11/06/2017 None Full Exam - Dermatology Constitutional general appearance Overall: in no acute distress 11/06/2017 None Full Exam - Dermatology Constitutional general appearance Overall: well nourished 11/06/2017 None Full Exam - Dermatology Respiratory respiratory effort/rhythm Overall: no retractions 11/06/2017 None Full Exam - Dermatology Respiratory respiratory effort/rhythm Overall: normal rate 11/06/2017 None Full Exam - Dermatology Respiratory auscultation Overall: breath sounds clear bilaterally 11/06/2017 None Full Exam - Dermatology Integument insp & palp - left lower extremity Lesion: cellulitis 11/03/2017 None Full Exam - Dermatology Integument insp & palp - left lower extremity Location: on the epperson 11/03/2017 None Full Exam - Dermatology Integument insp & palp - left lower extremity Color: erythematous 11/03/2017 None Full Exam - Dermatology Integument insp & palp - left lower extremity Appearance: moist 11/03/2017 None Full Exam - Dermatology Integument insp & palp - right lower extremity Location: on the epperson 11/03/2017 None Full Exam - Dermatology Integument insp & palp - right lower extremity Color: erythematous 11/03/2017 ecchymosis Full Exam - Dermatology Integument insp & palp - right lower extremity Appearance: edematous 11/03/2017 None Full Exam - Dermatology Integument insp & palp - right lower extremity Appearance: tender 11/03/2017 None Full Exam - Dermatology Constitutional general appearance Overall: well nourished 10/29/2017 None Full Exam - Dermatology Constitutional general appearance Overall: well developed 10/29/2017 None Full Exam - Dermatology Constitutional general appearance Overall: in no acute distress 10/29/2017 None Full Exam - Dermatology Eyes conjunctiva/ eyelids Overall: clear conjunctiva bilaterally 10/29/2017 None Full Exam - Dermatology Eyes conjunctiva/ eyelids Overall: clear corneas 10/29/2017 None Full Exam - Dermatology Eyes conjunctiva/ eyelids Overall: normal eyelids 10/29/2017 None Full Exam - Dermatology Ears/Nose/Throat lips/teeth/gingiva Overall: benign lips 10/29/2017 None Full Exam - Dermatology Respiratory respiratory effort/rhythm Overall: normal rate 10/29/2017 None Full Exam - Dermatology Respiratory respiratory effort/rhythm Overall: no retractions 10/29/2017 None Full Exam - Dermatology Integument insp & palp - left lower extremity Lesion: cellulitis 10/29/2017 None Full Exam - Dermatology Integument insp & palp - left lower extremity Location: on the epperson 10/29/2017 None Full Exam - Dermatology Integument insp & palp - left lower extremity Color: erythematous 10/29/2017 None Full Exam - Dermatology Integument insp & palp - left lower extremity Appearance: moist 10/29/2017 None Full Exam - Dermatology Integument insp & palp - left lower extremity Appearance: edematous 10/29/2017 None Full Exam - Dermatology Cardiovascular peripheral vascular system Edema present: pitting 10/29/2017 None Full Exam - Dermatology Cardiovascular peripheral vascular system Edema present: of severity 1+ - 4+: 3+ 10/29/2017 None Full Exam - Dermatology Cardiovascular peripheral vascular system Edema present: bilateral 10/29/2017 None Full Exam - Dermatology Cardiovascular peripheral vascular system Edema present: to leg 10/29/2017 left greater than right Full Exam - Dermatology Psychiatric orientation Overall: oriented to person, place and time 10/29/2017 None Full Exam - Dermatology Psychiatric mood and affect Overall: normal mood and affect 10/29/2017 None Full Exam - General 1995 Constitutional general appearance Development: well developed 09/04/2017 None Full Exam - General 1995 Constitutional general appearance Development: appears stated age 0209/04/2017 None Full Exam - General 1994 Constitutional general appearance Hygiene/Attention to Grooming: good hygiene 09/04/2017 None Full Exam - General 1995 Eyes conjunctiva /eyelids Overall: conjunctiva clear 09/04/2017 None Full Exam - General 1995 Eyes conjunctiva /eyelids Overall: cornea clear 09/04/2017 None Full Exam - General 1995 Eyes conjunctiva /eyelids Overall: eyelids normal 09/04/2017 None Full Exam - General 1994 Eyes pupils and irises Overall: pupils equal, round, reactive to light and accomodation 09/04/2017 None Full Exam - General 1994 Ears/Nose/Throat external ear Overall: normal appearance 09/04/2017 None Full Exam - General 1994 Ears/Nose/Throat lips/teeth/gingiva Overall: benign lips 09/04/2017 None Full Exam - General 1994 Ears/Nose/Throat lips/teeth/gingiva Overall: normal dentition 09/04/2017 None Full Exam - General 1995 Ears/Nose/Throat oral cavity/pharynx/larynx Overall: oral mucosa clear 09/04/2017 None Full Exam - General 1994 Respiratory auscultation Overall: breath sounds clear bilaterally 09/04/2017 None Full Exam - General 1994 Respiratory respiratory effort/rhythm Overall: no retractions 09/04/2017 None Full Exam - General 1994 Respiratory respiratory effort/rhythm Overall: normal rate 09/04/2017 None Full Exam - General 1994 Cardiovascular auscultation of heart Rate: regular rate 09/04/2017 None Full Exam - General 1994 Cardiovascular auscultation of heart Murmur: previously known murmur unchanged 09/04/2017 None Full Exam - General 1994 Cardiovascular auscultation of heart Systolic murmur: holosystolic 09/04/2017 None Full Exam - General 1994 Cardiovascular auscultation of heart Systolic murmur grade: III/ 09/04/2017 None Full Exam - General 1994 Integument inspection of skin Dermatitis: scaling 09/04/2017 None Full Exam - General 1994 Integument inspection of skin Dermatitis: thickened 09/04/2017 on left cheek - thickened lesion removed with 10 blade scalpel - bleeding after the thickened lesion removed - dressed with medihoney and telfa Full Exam - General 1995 Psychiatric orientation/consciousness Overall: oriented to person, place and time 09/04/2017 None Full Exam - General 1995 Psychiatric mood and affect Overall: normal mood and affect 09/04/2017 None Full Exam - General 1995 Cardiovascular extremities Overall: no clubbing 09/04/2017 None Full Exam - General 1995 Cardiovascular extremities Edema present: pitting 09/04/2017 None Full Exam - General 1995 Cardiovascular extremities Edema present: severity 1+ - 4 +: 1+ 09/04/2017 None Full Exam - General 1994 Cardiovascular auscultation of heart Rate: bradycardia 09/04/2017 None Full Exam - General 1994 Abdomen abdominal exam Overall: no tenderness 09/04/2017 None Full Exam - General 1994 Abdomen abdominal exam Overall: normal bowel sounds 09/04/2017 None Full Exam - General 1994 Musculoskeletal lower extremity Palpation - knee: crepitus 09/04/2017 None Full Exam - General 1994 Musculoskeletal gait and station Overall: normal gait 09/04/2017 None Full Exam - General 1994 Musculoskeletal gait and station Overall: normal station 09/04/2017 None Full Exam - General 1994 Musculoskeletal head and neck Overall: cervical spine benign 09/04/2017 None Full Exam - General 1994 Neurologic deep tendon reflexes Overall: deep tendon reflexes intact 09/04/2017 None Full Exam - General 1994 Neurologic cranial nerves Overall: crainial nerves 2 - 12 grossly intact 09/04/2017 None Full Exam - General 1994 Constitutional general appearance Development: well developed 08/08/2017 None Full Exam - General 1994 Constitutional general appearance Development: appears stated age 0108/08/2017 None Full Exam - General 1994 Constitutional general appearance Hygiene/Attention to Grooming: good hygiene 08/08/2017 None Full Exam - General 1994 Eyes conjunctiva /eyelids Overall: conjunctiva clear 08/08/2017 None Full Exam - General 1994 Eyes conjunctiva /eyelids Overall: cornea clear 08/08/2017 None Full Exam - General 1994 Eyes conjunctiva /eyelids Overall: eyelids normal 08/08/2017 None Full Exam - General 1994 Eyes pupils and irises Overall: pupils equal, round, reactive to light and accomodation 08/08/2017 None Full Exam - General 1994 Ears/Nose/Throat external ear Overall: normal appearance 08/08/2017 None Full Exam - General 1994 Ears/Nose/Throat lips/teeth/gingiva Overall: benign lips 08/08/2017 None Full Exam - General 1994 Ears/Nose/Throat lips/teeth/gingiva Overall: normal dentition 08/08/2017 None Full Exam - General 1994 Ears/Nose/Throat oral cavity/pharynx/larynx Overall: oral mucosa clear 08/08/2017 None Full Exam - General 1994 Respiratory auscultation Overall: breath sounds clear bilaterally 08/08/2017 None Full Exam - General 1994 Respiratory respiratory effort/rhythm Overall: no retractions 08/08/2017 None Full Exam - General 1994 Respiratory respiratory effort/rhythm Overall: normal rate 08/08/2017 None Full Exam - General 1994 Cardiovascular auscultation of heart Rate: regular rate 08/08/2017 None Full Exam - General 1994 Cardiovascular auscultation of heart Murmur: previously known murmur unchanged 08/08/2017 None Full Exam - General 1994 Cardiovascular auscultation of heart Systolic murmur: holosystolic 08/08/2017 None Full Exam - General 1994 Cardiovascular auscultation of heart Systolic murmur grade: III/ 08/08/2017 None Full Exam - General 1994 Psychiatric orientation/consciousness Overall: oriented to person, place and time 08/08/2017 None Full Exam - General 1994 Psychiatric mood and affect Overall: normal mood and affect 08/08/2017 None Full Exam - General 1994 Integument inspection of skin Dermatitis: scaling 08/08/2017 None Full Exam - General 1994 Integument inspection of skin Dermatitis: thickened 08/08/2017 on left cheek - thickened lesion removed with 10 blade scalpel - bleeding after the thickened lesion removed - dressed with medihoney and telfa Full Exam - General 1994 Constitutional general appearance Development: well developed 05/29/2017 None Full Exam - General 1994 Constitutional general appearance Development: appears stated age 1005/29/2017 None Full Exam - General 1994 Constitutional general appearance Hygiene/Attention to Grooming: good hygiene 05/29/2017 None Full Exam - General 1994 Eyes conjunctiva /eyelids Overall: conjunctiva clear 05/29/2017 None Full Exam - General 1994 Eyes conjunctiva /eyelids Overall: cornea clear 05/29/2017 None Full Exam - General 1994 Eyes conjunctiva /eyelids Overall: eyelids normal 05/29/2017 None Full Exam - General 1994 Eyes pupils and irises Overall: pupils equal, round, reactive to light and accomodation 05/29/2017 None Full Exam - General 1994 Ears/Nose/Throat external ear Overall: normal appearance 05/29/2017 None Full Exam - General 1994 Ears/Nose/Throat lips/teeth/gingiva Overall: benign lips 05/29/2017 None Full Exam - General 1994 Ears/Nose/Throat lips/teeth/gingiva Overall: normal dentition 05/29/2017 None Full Exam - General 1994 Ears/Nose/Throat oral cavity/pharynx/larynx Overall: oral mucosa clear 05/29/2017 None Full Exam - General 1994 Respiratory auscultation Overall: breath sounds clear bilaterally 05/29/2017 None Full Exam - General 1994 Respiratory respiratory effort/rhythm Overall: no retractions 05/29/2017 None Full Exam - General 1994 Respiratory respiratory effort/rhythm Overall: normal rate 05/29/2017 None Full Exam - General 1994 Cardiovascular extremities Overall: no clubbing 05/29/2017 None Full Exam - General 1994 Cardiovascular extremities Edema present: pitting 05/29/2017 None Full Exam - General 1994 Cardiovascular extremities Edema present: severity 1+ - 4 +: 1+ 05/29/2017 None Full Exam - General 1994 Cardiovascular auscultation of heart Systolic murmur: holosystolic 05/29/2017 None Full Exam - General 1994 Cardiovascular auscultation of heart Systolic murmur grade: III/ 05/29/2017 None Full Exam - General 1994 Abdomen abdominal exam Overall: no tenderness 05/29/2017 None Full Exam - General 1994 Abdomen abdominal exam Overall: normal bowel sounds 05/29/2017 None Full Exam - General 1994 Musculoskeletal lower extremity Palpation - knee: crepitus 05/29/2017 None Full Exam - General 1994 Musculoskeletal gait and station Overall: normal gait 05/29/2017 None Full Exam - General 1994 Musculoskeletal gait and station Overall: normal station 05/29/2017 None Full Exam - General 1994 Musculoskeletal head and neck Overall: cervical spine benign 05/29/2017 None Full Exam - General 1994 Neurologic deep tendon reflexes Overall: deep tendon reflexes intact 05/29/2017 None Full Exam - General 1994 Neurologic cranial nerves Overall: crainial nerves 2 - 12 grossly intact 05/29/2017 None Full Exam - General 1994 Psychiatric orientation/consciousness Overall: oriented to person, place and time 05/29/2017 None Full Exam - General 1994 Psychiatric mood and affect Overall: normal mood and affect 05/29/2017 None Full Exam - General 1994 Cardiovascular auscultation of heart Rate: regular rate 05/29/2017 None Full Exam - General 1994 Cardiovascular auscultation of heart Murmur: previously known murmur unchanged 05/29/2017 None Full Exam - General 1994 Lymphatic neck nodes Overall: anterior cervical chain benign 05/29/2017 None Full Exam - General 1994 Lymphatic neck nodes Overall: posterior cervical chain benign 05/29/2017 None Full Exam - General 1994 Integument inspection of skin Overall: no rash, lesions 05/29/2017 None Full Exam - General 1994 Constitutional general appearance Development: well developed 04/16/2017 None Full Exam - General 1994 Constitutional general appearance Development: appears stated age 0904/16/2017 None Full Exam - General 1994 Constitutional general appearance Hygiene/Attention to Grooming: good hygiene 04/16/2017 None Full Exam - General 1994 Eyes conjunctiva /eyelids Overall: conjunctiva clear 04/16/2017 None Full Exam - General 1994 Eyes conjunctiva /eyelids Overall: cornea clear 04/16/2017 None Full Exam - General 1994 Eyes conjunctiva /eyelids Overall: eyelids normal 04/16/2017 None Full Exam - General 1994 Eyes pupils and irises Overall: pupils equal, round, reactive to light and accomodation 04/16/2017 None Full Exam - General 1994 Ears/Nose/Throat external ear Overall: normal appearance 04/16/2017 None Full Exam - General 1994 Ears/Nose/Throat lips/teeth/gingiva Overall: benign lips 04/16/2017 None Full Exam - General 1994 Ears/Nose/Throat lips/teeth/gingiva Overall: normal dentition 04/16/2017 None Full Exam - General 1994 Ears/Nose/Throat oral cavity/pharynx/larynx Overall: oral mucosa clear 04/16/2017 None Full Exam - General 1994 Respiratory auscultation Overall: breath sounds clear bilaterally 04/16/2017 None Full Exam - General 1994 Respiratory respiratory effort/rhythm Overall: no retractions 04/16/2017 None Full Exam - General 1994 Respiratory respiratory effort/rhythm Overall: normal rate 04/16/2017 None Full Exam - General 1994 Cardiovascular extremities Overall: no clubbing 04/16/2017 None Full Exam - General 1994 Cardiovascular extremities Edema present: pitting 04/16/2017 None Full Exam - General 1994 Cardiovascular extremities Edema present: severity 1+ - 4 +: 1+ 04/16/2017 None Full Exam - General 1994 Cardiovascular auscultation of heart Murmur: previously known murmur unchanged 04/16/2017 None Full Exam - General 1994 Cardiovascular auscultation of heart Systolic murmur: holosystolic 04/16/2017 None Full Exam - General 1994 Cardiovascular auscultation of heart Systolic murmur grade: III/ 04/16/2017 None Full Exam - General 1994 Abdomen abdominal exam Overall: no tenderness 04/16/2017 None Full Exam - General 1994 Abdomen abdominal exam Overall: normal bowel sounds 04/16/2017 None Full Exam - General 1994 Musculoskeletal lower extremity Palpation - knee: crepitus 04/16/2017 None Full Exam - General 1994 Musculoskeletal gait and station Overall: normal gait 04/16/2017 None Full Exam - General 1994 Musculoskeletal gait and station Overall: normal station 04/16/2017 None Full Exam - General 1994 Musculoskeletal head and neck Overall: cervical spine benign 04/16/2017 None Full Exam - General 1994 Neurologic deep tendon reflexes Overall: deep tendon reflexes intact 04/16/2017 None Full Exam - General 1994 Neurologic cranial nerves Overall: crainial nerves 2 - 12 grossly intact 04/16/2017 None Full Exam - General 1994 Psychiatric orientation/consciousness Overall: oriented to person, place and time 04/16/2017 None Full Exam - General 1994 Psychiatric mood and affect Overall: normal mood and affect 04/16/2017 None Full Exam - General 1994 Cardiovascular auscultation of heart Rate: bradycardia 04/16/2017 None Full Exam - Dermatology Constitutional general appearance Overall: well nourished 02/10/2017 None Full Exam - Dermatology Constitutional general appearance Overall: well developed 02/10/2017 None Full Exam - Dermatology Constitutional general appearance Overall: in no acute distress 02/10/2017 None Full Exam - Dermatology Eyes conjunctiva/ eyelids Overall: clear conjunctiva bilaterally 02/10/2017 None Full Exam - Dermatology Ears/Nose/Throat lips/teeth/gingiva Overall: benign lips 02/10/2017 None Full Exam - Dermatology Respiratory auscultation Overall: breath sounds clear bilaterally 02/10/2017 None Full Exam - Dermatology Respiratory respiratory effort/rhythm Overall: no retractions 02/10/2017 None Full Exam - Dermatology Respiratory respiratory effort/rhythm Overall: normal rate 02/10/2017 None Full Exam - Dermatology Integument insp & palp - left lower extremity Location: on the epperson 02/10/2017 None Full Exam - Dermatology Integument insp & palp - left lower extremity Color: erythematous 02/10/2017 None Full Exam - Dermatology Integument insp & palp - left lower extremity Appearance: moist 02/10/2017 None Full Exam - Dermatology Integument insp & palp - left lower extremity Shape: round 02/10/2017 None Full Exam - Dermatology Psychiatric orientation Overall: oriented to person, place and time 02/10/2017 None Full Exam - Dermatology Psychiatric mood and affect Overall: normal mood and affect 02/10/2017 None Full Exam - General 1994 Constitutional general appearance Development: well developed 01/21/2017 None Full Exam - General 1994 Constitutional general appearance Development: appears stated age 0601/21/2017 None Full Exam - General 1994 Constitutional general appearance Hygiene/Attention to Grooming: good hygiene 01/21/2017 None Full Exam - General 1994 Eyes conjunctiva /eyelids Overall: conjunctiva clear 01/21/2017 None Full Exam - General 1994 Eyes conjunctiva /eyelids Overall: cornea clear 01/21/2017 None Full Exam - General 1994 Eyes conjunctiva /eyelids Overall: eyelids normal 01/21/2017 None Full Exam - General 1994 Eyes pupils and irises Overall: pupils equal, round, reactive to light and accomodation 01/21/2017 None Full Exam - General 1994 Ears/Nose/Throat external ear Overall: normal appearance 01/21/2017 None Full Exam - General 1994 Ears/Nose/Throat lips/teeth/gingiva Overall: benign lips 01/21/2017 None Full Exam - General 1994 Ears/Nose/Throat lips/teeth/gingiva Overall: normal dentition 01/21/2017 None Full Exam - General 1994 Ears/Nose/Throat oral cavity/pharynx/larynx Overall: oral mucosa clear 01/21/2017 None Full Exam - General 1994 Respiratory auscultation Overall: breath sounds clear bilaterally 01/21/2017 None Full Exam - General 1994 Respiratory respiratory effort/rhythm Overall: no retractions 01/21/2017 None Full Exam - General 1994 Respiratory respiratory effort/rhythm Overall: normal rate 01/21/2017 None Full Exam - General 1994 Cardiovascular extremities Overall: no clubbing 01/21/2017 None Full Exam - General 1994 Cardiovascular extremities Edema present: pitting 01/21/2017 None Full Exam - General 1994 Cardiovascular extremities Edema present: severity 1+ - 4 +: 1+ 01/21/2017 None Full Exam - General 1994 Cardiovascular auscultation of heart Overall: regular rate 01/21/2017 None Full Exam - General 1994 Cardiovascular auscultation of heart Murmur: previously known murmur unchanged 01/21/2017 None Full Exam - General 1994 Cardiovascular auscultation of heart Systolic murmur: holosystolic 01/21/2017 None Full Exam - General 1994 Cardiovascular auscultation of heart Systolic murmur grade: III/ 01/21/2017 None Full Exam - General 1994 Abdomen abdominal exam Overall: no tenderness 01/21/2017 None Full Exam - General 1994 Abdomen abdominal exam Overall: normal bowel sounds 01/21/2017 None Full Exam - General 1994 Musculoskeletal gait and station Overall: normal gait 01/21/2017 None Full Exam - General 1994 Musculoskeletal gait and station Overall: normal station 01/21/2017 None Full Exam - General 1994 Musculoskeletal head and neck Overall: cervical spine benign 01/21/2017 None Full Exam - General 1994 Psychiatric orientation/consciousness Overall: oriented to person, place and time 01/21/2017 None Full Exam - General 1994 Psychiatric mood and affect Overall: normal mood and affect 01/21/2017 None Full Exam - General 1994 Constitutional general appearance Development: well developed 12/18/2016 None Full Exam - General 1994 Constitutional general appearance Development: appears stated age 0512/18/2016 None Full Exam - General 1994 Constitutional general appearance Hygiene/Attention to Grooming: good hygiene 12/18/2016 None Full Exam - General 1994 Eyes conjunctiva /eyelids Overall: conjunctiva clear 12/18/2016 None Full Exam - General 1994 Eyes conjunctiva /eyelids Overall: cornea clear 12/18/2016 None Full Exam - General 1994 Eyes conjunctiva /eyelids Overall: eyelids normal 12/18/2016 None Full Exam - General 1994 Eyes pupils and irises Overall: pupils equal, round, reactive to light and accomodation 12/18/2016 None Full Exam - General 1994 Ears/Nose/Throat external ear Overall: normal appearance 12/18/2016 None Full Exam - General 1994 Ears/Nose/Throat lips/teeth/gingiva Overall: benign lips 12/18/2016 None Full Exam - General 1994 Ears/Nose/Throat lips/teeth/gingiva Overall: normal dentition 12/18/2016 None Full Exam - General 1994 Ears/Nose/Throat oral cavity/pharynx/larynx Overall: oral mucosa clear 12/18/2016 None Full Exam - General 1994 Respiratory auscultation Overall: breath sounds clear bilaterally 12/18/2016 None Full Exam - General 1994 Respiratory respiratory effort/rhythm Overall: no retractions 12/18/2016 None Full Exam - General 1994 Respiratory respiratory effort/rhythm Overall: normal rate 12/18/2016 None Full Exam - General 1994 Cardiovascular extremities Overall: no clubbing 12/18/2016 None Full Exam - General 1994 Cardiovascular extremities Edema present: pitting 12/18/2016 None Full Exam - General 1994 Cardiovascular extremities Edema present: severity 1+ - 4 +: 1+ 12/18/2016 None Full Exam - General 1994 Cardiovascular auscultation of heart Overall: regular rate 12/18/2016 None Full Exam - General 1994 Cardiovascular auscultation of heart Murmur: previously known murmur unchanged 12/18/2016 None Full Exam - General 1994 Cardiovascular auscultation of heart Systolic murmur: holosystolic 12/18/2016 None Full Exam - General 1994 Cardiovascular auscultation of heart Systolic murmur grade: III/ 12/18/2016 None Full Exam - General 1994 Abdomen abdominal exam Overall: no tenderness 12/18/2016 None Full Exam - General 1994 Abdomen abdominal exam Overall: normal bowel sounds 12/18/2016 None Full Exam - General 1994 Musculoskeletal lower extremity Palpation - knee: crepitus 12/18/2016 None Full Exam - General 1994 Musculoskeletal gait and station Overall: normal gait 12/18/2016 None Full Exam - General 1994 Musculoskeletal gait and station Overall: normal station 12/18/2016 None Full Exam - General 1994 Musculoskeletal head and neck Overall: cervical spine benign 12/18/2016 None Full Exam - General 1994 Integument inspection of skin Overall: few scattered moles, no gross abnormalities 12/18/2016 None Full Exam - General 1994 Neurologic deep tendon reflexes Overall: deep tendon reflexes intact 12/18/2016 None Full Exam - General 1994 Neurologic cranial nerves Overall: crainial nerves 2 - 12 grossly intact 12/18/2016 None Full Exam - General 1994 Psychiatric orientation/consciousness Overall: oriented to person, place and time 12/18/2016 None Full Exam - General 1994 Psychiatric mood and affect Overall: normal mood and affect 12/18/2016 None Full Exam - General 1994 Constitutional general appearance Development: well developed 08/26/2016 None Full Exam - General 1994 Constitutional general appearance Development: appears stated age 0108/26/2016 None Full Exam - General 1994 Constitutional general appearance Hygiene/Attention to Grooming: good hygiene 08/26/2016 None Full Exam - General 1994 Eyes conjunctiva /eyelids Overall: conjunctiva clear 08/26/2016 None Full Exam - General 1994 Eyes conjunctiva /eyelids Overall: cornea clear 08/26/2016 None Full Exam - General 1994 Eyes conjunctiva /eyelids Overall: eyelids normal 08/26/2016 None Full Exam - General 1994 Eyes pupils and irises Overall: pupils equal, round, reactive to light and accomodation 08/26/2016 None Full Exam - General 1994 Ears/Nose/Throat external ear Overall: normal appearance 08/26/2016 None Full Exam - General 1994 Respiratory auscultation Overall: breath sounds clear bilaterally 08/26/2016 None Full Exam - General 1994 Respiratory respiratory effort/rhythm Overall: no retractions 08/26/2016 None Full Exam - General 1994 Respiratory respiratory effort/rhythm Overall: normal rate 08/26/2016 None Full Exam - General 1994 Cardiovascular extremities Overall: no clubbing 08/26/2016 None Full Exam - General 1994 Cardiovascular extremities Edema present: pitting 08/26/2016 None Full Exam - General 1994 Cardiovascular extremities Edema present: severity 1+ - 4 +: 1+ 08/26/2016 None Full Exam - General 1994 Cardiovascular auscultation of heart Overall: regular rate 08/26/2016 None Full Exam - General 1994 Cardiovascular auscultation of heart Murmur: previously known murmur unchanged 08/26/2016 None Full Exam - General 1994 Cardiovascular auscultation of heart Systolic murmur: holosystolic 08/26/2016 None Full Exam - General 1994 Cardiovascular auscultation of heart Systolic murmur grade: III/ 08/26/2016 None Full Exam - General 1994 Musculoskeletal lower extremity Palpation - knee: crepitus 08/26/2016 None Full Exam - General 1994 Musculoskeletal gait and station Overall: normal gait 08/26/2016 None Full Exam - General 1994 Musculoskeletal gait and station Overall: normal station 08/26/2016 None Full Exam - General 1994 Integument inspection of skin Overall: few scattered moles, no gross abnormalities 08/26/2016 None Full Exam - General 1994 Neurologic deep tendon reflexes Overall: deep tendon reflexes intact 08/26/2016 None Full Exam - General 1994 Neurologic cranial nerves Overall: crainial nerves 2 - 12 grossly intact 08/26/2016 None Full Exam - General 1994 Psychiatric orientation/consciousness Overall: oriented to person, place and time 08/26/2016 None Full Exam - General 1994 Psychiatric mood and affect Overall: normal mood and affect 08/26/2016 None Full Exam - General 1994 Ears/Nose/Throat lips/teeth/gingiva Overall: benign lips 08/26/2016 None Full Exam - General 1994 Ears/Nose/Throat lips/teeth/gingiva Overall: normal dentition 08/26/2016 None Full Exam - General 1994 Ears/Nose/Throat oral cavity/pharynx/larynx Overall: oral mucosa clear 08/26/2016 None Full Exam - General 1994 Abdomen abdominal exam Overall: no tenderness 08/26/2016 None Full Exam - General 1994 Abdomen abdominal exam Overall: normal bowel sounds 08/26/2016 None Full Exam - General 1994 Musculoskeletal head and neck Overall: cervical spine benign 08/26/2016 None Full Exam - General 1994 Constitutional general appearance Development: well developed 02/27/2016 None Full Exam - General 1994 Constitutional general appearance Development: appears stated age 0702/27/2016 None Full Exam - General 1994 Constitutional general appearance Hygiene/Attention to Grooming: good hygiene 02/27/2016 None Full Exam - General 1994 Eyes conjunctiva /eyelids Overall: conjunctiva clear 02/27/2016 None Full Exam - General 1994 Eyes conjunctiva /eyelids Overall: cornea clear 02/27/2016 None Full Exam - General 1994 Eyes conjunctiva /eyelids Overall: eyelids normal 02/27/2016 None Full Exam - General 1994 Eyes pupils and irises Overall: pupils equal, round, reactive to light and accomodation 02/27/2016 None Full Exam - General 1994 Ears/Nose/Throat external ear Overall: normal appearance 02/27/2016 None Full Exam - General 1994 Respiratory auscultation Overall: breath sounds clear bilaterally 02/27/2016 None Full Exam - General 1994 Respiratory respiratory effort/rhythm Overall: no retractions 02/27/2016 None Full Exam - General 1994 Respiratory respiratory effort/rhythm Overall: normal rate 02/27/2016 None Full Exam - General 1994 Cardiovascular extremities Overall: no clubbing 02/27/2016 None Full Exam - General 1994 Cardiovascular extremities Edema present: pitting 02/27/2016 None Full Exam - General 1994 Cardiovascular extremities Edema present: severity 1+ - 4 +: _ 02/27/2016 3+ bilateral legs L>R with bruising noted left toes to thigh, no redness, no calf tenderness -- Improved Full Exam - General 1994 Cardiovascular auscultation of heart Overall: regular rate 02/27/2016 None Full Exam - General 1994 Cardiovascular auscultation of heart Murmur: previously known murmur unchanged 02/27/2016 None Full Exam - General 1994 Cardiovascular auscultation of heart Systolic murmur: holosystolic 02/27/2016 None Full Exam - General 1994 Cardiovascular auscultation of heart Systolic murmur grade: III/ 02/27/2016 None Full Exam - General 1994 Musculoskeletal lower extremity Palpation - knee: crepitus 02/27/2016 None Full Exam - General 1994 Musculoskeletal gait and station Overall: normal gait 02/27/2016 None Full Exam - General 1994 Musculoskeletal gait and station Overall: normal station 02/27/2016 None Full Exam - General 1994 Integument inspection of skin Location: left arm 02/27/2016 bruising and scabbed abrasions/ small lacerations left anterior arm -no redness, drainage, swelling --Improved Full Exam - General 1994 Integument inspection of skin Location: left leg 02/27/2016 bruising --Improved Full Exam - General 1994 Neurologic deep tendon reflexes Overall: deep tendon reflexes intact 02/27/2016 None Full Exam - General 1994 Neurologic cranial nerves Overall: crainial nerves 2 - 12 grossly intact 02/27/2016 None Full Exam - General 1994 Psychiatric orientation/consciousness Overall: oriented to person, place and time 02/27/2016 None Full Exam - General 1994 Psychiatric mood and affect Overall: normal mood and affect 02/27/2016 None Full Exam - General 1994 Constitutional general appearance Development: well developed 02/19/2016 None Full Exam - General 1994 Constitutional general appearance Development: appears stated age 0702/19/2016 None Full Exam - General 1994 Constitutional general appearance Hygiene/Attention to Grooming: good hygiene 02/19/2016 None Full Exam - General 1994 Eyes conjunctiva /eyelids Overall: conjunctiva clear 02/19/2016 None Full Exam - General 1994 Eyes conjunctiva /eyelids Overall: cornea clear 02/19/2016 None Full Exam - General 1994 Eyes conjunctiva /eyelids Overall: eyelids normal 02/19/2016 None Full Exam - General 1994 Eyes pupils and irises Overall: pupils equal, round, reactive to light and accomodation 02/19/2016 None Full Exam - General 1994 Ears/Nose/Throat external ear Overall: normal appearance 02/19/2016 None Full Exam - General 1994 Respiratory auscultation Overall: breath sounds clear bilaterally 02/19/2016 None Full Exam - General 1994 Respiratory respiratory effort/rhythm Overall: no retractions 02/19/2016 None Full Exam - General 1994 Respiratory respiratory effort/rhythm Overall: normal rate 02/19/2016 None Full Exam - General 1994 Cardiovascular extremities Overall: no clubbing 02/19/2016 None Full Exam - General 1994 Cardiovascular extremities Edema present: pitting 02/19/2016 None Full Exam - General 1994 Cardiovascular auscultation of heart Overall: regular rate 02/19/2016 None Full Exam - General 1994 Cardiovascular auscultation of heart Murmur: previously known murmur unchanged 02/19/2016 None Full Exam - General 1994 Cardiovascular auscultation of heart Systolic murmur: holosystolic 02/19/2016 None Full Exam - General 1994 Cardiovascular auscultation of heart Systolic murmur grade: III/ 02/19/2016 None Full Exam - General 1994 Musculoskeletal lower extremity Palpation - knee: crepitus 02/19/2016 None Full Exam - General 1994 Musculoskeletal gait and station Overall: normal gait 02/19/2016 None Full Exam - General 1994 Musculoskeletal gait and station Overall: normal station 02/19/2016 None Full Exam - General 1994 Neurologic deep tendon reflexes Overall: deep tendon reflexes intact 02/19/2016 None Full Exam - General 1994 Neurologic cranial nerves Overall: crainial nerves 2 - 12 grossly intact 02/19/2016 None Full Exam - General 1994 Psychiatric orientation/consciousness Overall: oriented to person, place and time 02/19/2016 None Full Exam - General 1994 Psychiatric mood and affect Overall: normal mood and affect 02/19/2016 None Full Exam - General 1994 Cardiovascular extremities Edema present: severity 1+ - 4 +: _ 02/19/2016 3+ bilateral legs L>R with bruising noted left toes to thigh, no redness, no calf tenderness Full Exam - General 1994 Integument inspection of skin Location: scalp 02/19/2016 abrasion Full Exam - General 1994 Integument inspection of skin Location: left arm 02/19/2016 bruising and scabbed abrasions/ small lacerations left anterior arm -no redness, drainage, swelling Full Exam - General 1994 Integument inspection of skin Location: left leg 02/19/2016 bruising Full Exam - General 1994 Constitutional general appearance Development: well developed 02/08/2016 None Full Exam - General 1994 Constitutional general appearance Development: appears stated age 0702/08/2016 None Full Exam - General 1994 Constitutional general appearance Hygiene/Attention to Grooming: good hygiene 02/08/2016 None Full Exam - General 1994 Eyes conjunctiva /eyelids Overall: conjunctiva clear 02/08/2016 None Full Exam - General 1994 Eyes conjunctiva /eyelids Overall: cornea clear 02/08/2016 None Full Exam - General 1994 Eyes conjunctiva /eyelids Overall: eyelids normal 02/08/2016 None Full Exam - General 1994 Eyes pupils and irises Overall: pupils equal, round, reactive to light and accomodation 02/08/2016 None Full Exam - General 1994 Ears/Nose/Throat external ear Overall: normal appearance 02/08/2016 None Full Exam - General 1994 Respiratory auscultation Overall: breath sounds clear bilaterally 02/08/2016 None Full Exam - General 1994 Respiratory respiratory effort/rhythm Overall: no retractions 02/08/2016 None Full Exam - General 1994 Respiratory respiratory effort/rhythm Overall: normal rate 02/08/2016 None Full Exam - General 1994 Cardiovascular extremities Overall: no clubbing 02/08/2016 None Full Exam - General 1994 Cardiovascular extremities Edema present: pitting 02/08/2016 None Full Exam - General 1994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 Exam - General 1994 Cardiovascular extremities Overall: no clubbing 12/05/2014 None Full Exam - General 1994 Cardiovascular auscultation of heart Overall: normal heart sounds 12/05/2014 None Full Exam - General 1994 Cardiovascular auscultation of heart Overall: regular rate 12/05/2014 None Full Exam - General 1994 Abdomen abdominal exam Overall: no tenderness 12/05/2014 None Full Exam - General 1994 Abdomen abdominal exam Overall: normal bowel sounds 12/05/2014 None Full Exam - General 1994 Integument inspection of skin Overall: few scattered moles, no gross abnormalities 12/05/2014 None Full Exam - General 1994 Neurologic deep tendon reflexes Overall: deep tendon reflexes intact 12/05/2014 None Full Exam - General 1994 Neurologic cranial nerves Overall: crainial nerves 2 - 12 grossly intact 12/05/2014 None Full Exam - General 1994 Psychiatric orientation/consciousness Overall: oriented to person, place and time 12/05/2014 None Full Exam - General 1994 Psychiatric mood and affect Overall: normal mood and affect 12/05/2014 None Full Exam - General 1994 Musculoskeletal spine, ribs and pelvis Overall: good posture 12/05/2014 None Full Exam - General 1994 Musculoskeletal spine, ribs and pelvis Overall: spine benign 12/05/2014 None Full Exam - General 1994 Musculoskeletal head and neck Overall: cervical spine benign 12/05/2014 None Full Exam - General 1994 Musculoskeletal head and neck Overall: head atraumatic 12/05/2014 None Full Exam - General 1994 Musculoskeletal gait and station Overall: normal station 12/05/2014 None Full Exam - General 1994 Musculoskeletal gait and station Overall: normal gait 12/05/2014 None Full Exam - General 1994 Cardiovascular extremities Edema present: pitting 12/05/2014 None Full Exam - General 1994 Cardiovascular extremities Edema present: severity 1+ - 4 +: 3+ 12/05/2014 None Full Exam - General 1994 Lymphatic neck nodes Overall: anterior cervical chain benign 12/05/2014 None Full Exam - General 1994 Lymphatic neck nodes Overall: posterior cervical chain benign 12/05/2014 None Full Exam - General 1994 Musculoskeletal spine, ribs and pelvis Sacroiliac joints: tender right sacroiliac joint 12/05/2014 None Full Exam - General 1994 Musculoskeletal lower extremity Palpation - knee: crepitus 12/05/2014 None Procedures Procedure Codes Date TRIAMCINOLONE ACET INJ NOS CPT-4: J3301 12/26/2017 ADMIN INFLUENZA VIRUS VAC CPT-4: G0008 04/16/2017 FLU VACC PRSV FREE INC ANTIG CPT-4: 75682 04/16/2017 TRIAMCINOLONE ACET INJ NOS CPT-4: J3301 11/16/2015 ROCEPHIN, PER 250 MG CPT-4: J0696 11/16/2015 Vital Signs Date Vital 03/09/2018 Blood Pressure 1: 122/60 Code : 8480-6 Heart Rate 1: 65 bpm Height: 5'1" SpO2: 98% Weight: 02/12/2018 Blood Pressure 1: 100/68 Code : 8480-6 BMI: 24.3 Code : 62328-9 Heart Rate 1 : 68 bpm Height: 5'1" SpO2: 96% Weight: 128 lbs 13 oz 12/26/2017 Blood Pressure 1: 126/68 Code : 8480-6 BMI: 26.7 Code : 66920-6 Heart Rate 1 : 66 bpm Height: 5'1" SpO2: 98% Temperature: 36.8 (C) / 98.2 (F) Weight: 141 lbs 8 oz 12/04/2017 Blood Pressure 1: 132/76 Code : 8480-6 BMI: 26.5 Code : 51089-9 Heart Rate 1 : 73 bpm Height: 5'1" SpO2: 96% Weight: 140 lbs 11/13/2017 Blood Pressure 1: 126/62 Code : 8480-6 Heart Rate 1: 69 bpm Height: 5'1" SpO2: 96% Weight: 11/06/2017 Blood Pressure 1: 142/84 Code : 8480-6 BMI: 25.7 Code : 29821-0 Heart Rate 1 : 78 bpm Height: 5'1" SpO2: 95% Temperature: 36.9 (C) / 98.5 (F) Weight: 136 lbs 10/29/2017 Blood Pressure 1: 132/68 Code : 8480-6 BMI: 26.8 Code : 59477-1 Heart Rate 1 : 70 bpm Height: 5'1" SpO2: 98% Weight: 142 lbs 09/04/2017 Blood Pressure 1: 132/74 Code : 8480-6 BMI: 25.9 Code : 64566-9 Heart Rate 1 : 68 bpm Height: 5'1" SpO2: 96% Weight: 137 lbs 08/08/2017 Blood Pressure 1: 118/72 Code : 8480-6 BMI: 26.6 Code : 43474-0 Heart Rate 1 : 68 bpm Height: 5'1" SpO2: 95% Weight: 141 lbs 05/29/2017 Blood Pressure 1: 142/78 Code : 8480-6 BMI: 26.3 Code : 00799-2 Heart Rate 1 : 65 bpm Height: 5'1" SpO2: 95% Weight: 139 lbs 04/16/2017 Blood Pressure 1: 136/62 Code : 8480-6 BMI: 27.4 Code : 80716-7 Heart Rate 1 : 38 bpm Height: 5'1" SpO2: 98% Weight: 145 lbs 02/10/2017 Blood Pressure 1: 124/70 Code : 8480-6 BMI: 27.4 Code : 25184-2 Heart Rate 1 : 70 bpm Height: 5'1" SpO2: 96% Weight: 145 lbs 01/21/2017 Blood Pressure 1: 120/70 Code : 8480-6 BMI: 27.2 Code : 62115-3 Heart Rate 1 : 65 bpm Height: 5'1" SpO2: 95% Weight: 144 lbs 12/18/2016 Blood Pressure 1: 122/74 Code : 8480-6 BMI: 27.4 Code : 11622-1 Heart Rate 1 : 66 bpm Height: 5'1" SpO2: 97% Weight: 145 lbs 08/26/2016 Blood Pressure 1: 110/64 Code : 8480-6 BMI: 28.0 Code : 03114-0 Heart Rate 1 : 67 bpm Height: 5'1" SpO2: 97% Weight: 148 lbs 02/27/2016 Blood Pressure 1: 126/74 Code : 8480-6 Heart Rate 1: 67 bpm Height: 5'1" SpO2: 97% 02/19/2016 Blood Pressure 1: 130/80 Code : 8480-6 BMI: 28.2 Code : 86077-0 Heart Rate 1 : 74 bpm Height: 5'1" SpO2: 96% Weight: 149 lbs 02/08/2016 Blood Pressure 1: 122/78 Code : 8480-6 BMI: 28.2 Code : 31724-2 Heart Rate 1 : 63 bpm Height: 5'1" SpO2: 96% Weight: 149 lbs 11/16/2015 Blood Pressure 1: 128/70 Code : 8480-6 BMI: 27.8 Code : 05681-4 Heart Rate 1 : 64 bpm Height: 5'1" SpO2: 97% Weight: 147 lbs 07/18/2015 Blood Pressure 1: 110/60 Code : 8480-6 BMI: 28.5 Code : 85162-8 Heart Rate 1 : 61 bpm Height: 5'1" SpO2: 97% Weight: 151 lbs 06/27/2015 Blood Pressure 1: 122/60 Code : 8480-6 BMI: 28.9 Code : 52993-3 Heart Rate 1 : 63 bpm Height: 5'1" SpO2: 95% Weight: 153 lbs 06/19/2015 Blood Pressure 1: 120/78 Code : 8480-6 Heart Rate 1: 68 bpm SpO2: 96% Weight: 154 lbs 04/03/2015 Blood Pressure 1: 128/68 Code : 8480-6 BMI: 29.1 Code : 53736-9 Heart Rate 1 : 70 bpm Height: 5'1" SpO2: 97% Weight: 154 lbs 02/27/2015 Blood Pressure 1: 122/84 Code : 8480-6 BMI: 29.5 Code : 80035-5 Heart Rate 1 : 67 bpm Height: 5'1" SpO2: 95% Weight: 156 lbs 01/26/2015 Blood Pressure 1: 132/70 Code : 8480-6 BMI: 30.2 Code : 79224-9 Heart Rate 1 : 76 bpm Height: 5'1" Weight: 160 lbs 01/16/2015 Blood Pressure 1: 140/70 Code : 8480-6 BMI: 30.0 Code : 59686-2 Heart Rate 1 : 78 bpm Height: 5'1" Respiratory Rate: 20 bpm Weight: 159 lbs 12/05/2014 Blood Pressure 1: 138/78 Code : 8480-6 BMI: 30.8 Code : 10431-8 Heart Rate 1 : 76 bpm Height: 5'1" Weight: 163 lbs Functional Status No Functional Status data History of Present Illness Symptom Name Status Result Effective Date Notes Hospital Follow Up _ pneumonia 03/09/2018 None Hospital Follow Up Quality acute illness 03/09/2018 None Hospital Follow Up Quality improving 03/09/2018 None Hospital Follow Up Pertinent Findings Denies fever 03/09/2018 None edema Location on both legs 03/09/2018 None edema Location on both ankles 03/09/2018 None edema Onset and Resolution ongoing 03/09/2018 None edema Quality painful 03/09/2018 at times edema Quality improving 03/09/2018 None edema Alleviating Factors medication 03/09/2018 None hypertension Quality primary hypertension 02/12/2018 None hypertension Quality stable 02/12/2018 None hypertension Onset and Resolution ongoing 02/12/2018 None hypertension Onset of Symptom during adulthood 02/12/2018 None hypertension Blood Pressure Values not checking blood pressure at home 02/12/2018 None hypertension Alleviating Factors medication 02/12/2018 None hypertension Pertinent Findings Denies anxiety 02/12/2018 None hypertension Pertinent Findings decreased energy 02/12/2018 None hypertension Pertinent Findings Denies dizziness 02/12/2018 None hypertension Pertinent Findings dyspnea 02/12/2018 "sometimes a little" hypertension Pertinent Findings edema 02/12/2018 None cough Location in the lung 12/26/2017 None cough Quality acute None cough Quality hacking 12/26/2017 None cough Quality productive 12/26/2017 None cough Quality worsening 12/26/2017 None cough Onset and Resolution sudden in onset 12/26/2017 None cough Onset of Symptom 2 days ago 12/26/2017 None cough Triggers no known associated factors 12/26/2017 None cough Pertinent Findings chest discomfort 12/26/2017 None cough Pertinent Findings Denies cyanosis 12/26/2017 None cough Pertinent Findings Denies chills 12/26/2017 None cough Pertinent Findings Denies fever 12/26/2017 None cough Pertinent Findings Denies hoarseness 12/26/2017 None cough Pertinent Findings Denies muscle aches 12/26/2017 None cough Pertinent Findings nasal congestion 12/26/2017 None cough Pertinent Findings purulent sputum 12/26/2017 None cough Pertinent Findings sputum production 12/26/2017 None cough Pertinent Findings weakness 12/26/2017 None chest congestion Quality acute 12/26/2017 None chest congestion Onset and Resolution sudden in onset 12/26/2017 None chest congestion Onset of Symptom 2 days ago 12/26/2017 None chest congestion Quality intermittent 12/26/2017 None chest congestion Quality worsening 12/26/2017 None chest congestion Severity moderate 12/26/2017 None chest congestion Triggers no known associated factors 12/26/2017 None chest congestion Pertinent Findings Denies chills 12/26/2017 None chest congestion Pertinent Findings cough 12/26/2017 None chest congestion Pertinent Findings decreased energy 12/26/2017 None chest congestion Pertinent Findings Denies fever 12/26/2017 None chest congestion Pertinent Findings nasal congestion 12/26/2017 None chest congestion Pertinent Findings sinus congestion 12/26/2017 None chest congestion Pertinent Findings sputum production 12/26/2017 None cellulitis Location on the left foot 12/04/2017 None cellulitis Location on the left leg 12/04/2017 None cellulitis Location on the right foot 12/04/2017 None cellulitis Location on the right leg 12/04/2017 None cellulitis Quality acute 12/04/2017 None cellulitis Quality worsening 12/04/2017 None cellulitis Onset and Resolution sudden in onset 12/04/2017 None cellulitis Triggers no known associated factors 12/04/2017 None cellulitis Initial treatment compression 12/04/2017 None cellulitis Initial treatment oral antibiotics 12/04/2017 None cellulitis Pertinent Findings bleeding 12/04/2017 None cellulitis Pertinent Findings blisters 12/04/2017 None cellulitis Pertinent Findings drainage 12/04/2017 None cellulitis Pertinent Findings pain 12/04/2017 None cellulitis Pertinent Findings redness 12/04/2017 None cellulitis Pertinent Findings tenderness 12/04/2017 None cellulitis Pertinent Findings warmth 12/04/2017 None cellulitis Pertinent Findings Denies unintentional weight loss 12/04/2017 None edema Quality acute None edema Quality painful 12/04/2017 None edema Quality pitting 12/04/2017 None edema Quality worsening 12/04/2017 None edema Onset and Resolution sudden in onset 12/04/2017 None edema Onset of Symptom 1 weeks ago 12/04/2017 None edema Triggers no known associated factors 12/04/2017 None edema Alleviating Factors rest 12/04/2017 None edema Alleviating Factors recumbency 12/04/2017 None edema Exacerbating Factors activity 12/04/2017 None edema Exacerbating Factors salty foods 12/04/2017 None edema Location on both ankles 12/04/2017 None edema Location on both legs 12/04/2017 None edema Pertinent Findings Denies dark urine 12/04/2017 None edema Pertinent Findings Denies decreased urinary output 12/04/2017 None edema Pertinent Findings Denies dyspnea 12/04/2017 None edema Pertinent Findings Denies dyspnea on exertion 12/04/2017 None edema Pertinent Findings Denies lightheadedness 12/04/2017 None edema Pertinent Findings Denies nausea 12/04/2017 None edema Pertinent Findings Denies palpitations 12/04/2017 None edema Pertinent Findings Denies tachycardia 12/04/2017 None edema Pertinent Findings Denies weight loss 12/04/2017 None knee pain Location on the left 12/04/2017 None knee pain Location on the right 12/04/2017 None knee pain Quality intermittent 12/04/2017 None knee pain Limitation on Activities allows weight bearing activity 12/04/2017 None knee pain Alleviating Factors non weight bearing 12/04/2017 None knee pain Alleviating Factors rest 12/04/2017 None knee pain Exacerbating Factors weight bearing 12/04/2017 None knee pain Exacerbating Factors flexion of the knee 12/04/2017 None knee pain Pertinent Findings pain with movement 12/04/2017 None hypertension Quality primary hypertension 12/04/2017 None hypertension Quality stable 12/04/2017 None hypertension Onset and Resolution ongoing 12/04/2017 None hypertension Onset of Symptom during adulthood 12/04/2017 None hypertension Blood Pressure Values not checking blood pressure at home 12/04/2017 None hypertension Alleviating Factors medication 12/04/2017 None hypertension Pertinent Findings Denies anxiety 12/04/2017 None hypertension Pertinent Findings decreased energy 12/04/2017 None hypertension Pertinent Findings Denies dizziness 12/04/2017 None hypertension Pertinent Findings dyspnea 12/04/2017 "sometimes a little" hypertension Pertinent Findings edema 12/04/2017 None hypothyroid Onset and Resolution ongoing 12/04/2017 None hypothyroid Alleviating Factors medication 12/04/2017 None rash Location-Major in the groin area 11/13/2017 None rash Color red 2017 None cellulitis Location on the left leg 11/06/2017 None cellulitis Onset and Resolution sudden in onset 11/06/2017 None Hospital Follow Up _ Other: cellulitis 11/06/2017 None Hospital Follow Up _ pain 11/06/2017 None Hospital Follow Up _ cardiac disease 11/06/2017 None Hospital Follow Up Quality acute illness 11/06/2017 None edema Quality acute None edema Quality painful 11/06/2017 None edema Quality pitting 11/06/2017 None edema Quality worsening 11/06/2017 None edema Onset and Resolution sudden in onset 11/06/2017 None edema Onset of Symptom 1 weeks ago 11/06/2017 None edema Pertinent Findings Denies dark urine 11/06/2017 None edema Pertinent Findings Denies decreased urinary output 11/06/2017 None edema Pertinent Findings Denies dyspnea 11/06/2017 None edema Pertinent Findings Denies dyspnea on exertion 11/06/2017 None edema Pertinent Findings Denies nausea 11/06/2017 None edema Pertinent Findings Denies lightheadedness 11/06/2017 None edema Pertinent Findings Denies palpitations 11/06/2017 None edema Pertinent Findings Denies tachycardia 11/06/2017 None edema Pertinent Findings Denies weight loss 11/06/2017 None edema Location on both ankles 11/06/2017 None edema Location on both legs 11/06/2017 None edema Alleviating Factors rest 11/06/2017 None edema Alleviating Factors recumbency 11/06/2017 None edema Exacerbating Factors activity 11/06/2017 None edema Exacerbating Factors salty foods 11/06/2017 None edema Triggers no known associated factors 11/06/2017 None cellulitis Quality acute 11/06/2017 None cellulitis Quality worsening 11/06/2017 None cellulitis Location on the left foot 11/06/2017 None cellulitis Location on the right leg 11/06/2017 None cellulitis Location on the right foot 11/06/2017 None cellulitis Triggers no known associated factors 11/06/2017 None cellulitis Initial treatment compression 11/06/2017 None cellulitis Initial treatment oral antibiotics 11/06/2017 None cellulitis Pertinent Findings bleeding 11/06/2017 None cellulitis Pertinent Findings blisters 11/06/2017 None cellulitis Pertinent Findings drainage 11/06/2017 None cellulitis Pertinent Findings pain 11/06/2017 None cellulitis Pertinent Findings redness 11/06/2017 None cellulitis Pertinent Findings warmth 11/06/2017 None cellulitis Pertinent Findings tenderness 11/06/2017 None cellulitis Pertinent Findings Denies unintentional weight loss 11/06/2017 None cellulitis Location on the left leg 11/03/2017 None cellulitis Quality constant 11/03/2017 None cellulitis Onset and Resolution sudden in onset 11/03/2017 None cellulitis Location on the left leg 10/29/2017 None cellulitis Quality constant 10/29/2017 None cellulitis Onset and Resolution sudden in onset 10/29/2017 None sores Quality acute None sores Quality worsening 09/04/2017 None sores Quality burning 09/04/2017 None sores Quality dry 08/2017 None sores Quality enlarging 09/04/2017 None sores Quality erythematous 09/04/2017 None sores Quality flaking 09/04/2017 None sores Quality painful 09/04/2017 None sores Quality peeling 09/04/2017 None sores Quality uncomfortable 09/04/2017 None sores Onset and Resolution sudden in onset 09/04/2017 None sores Onset and Resolution ongoing 09/04/2017 None sores Triggers topical applications 09/04/2017 imiquimod topically sores Alleviating Factors no alleviating factors 09/04/2017 None sores Pertinent Findings Denies fever 09/04/2017 None sores Pertinent Findings Denies history of similar rash 09/04/2017 None sores Pertinent Findings pain 09/04/2017 None sores Pertinent Findings tenderness 09/04/2017 None knee pain Location on the left 09/04/2017 None knee pain Location on the right 09/04/2017 None knee pain Quality intermittent 09/04/2017 None knee pain Limitation on Activities allows weight bearing activity 09/04/2017 None knee pain Alleviating Factors non weight bearing 09/04/2017 None knee pain Alleviating Factors rest 09/04/2017 None knee pain Exacerbating Factors weight bearing 09/04/2017 None knee pain Exacerbating Factors flexion of the knee 09/04/2017 None knee pain Pertinent Findings pain with movement 09/04/2017 None hypertension Quality primary hypertension 09/04/2017 None hypertension Quality stable 09/04/2017 None hypertension Onset and Resolution ongoing 09/04/2017 None hypertension Onset of Symptom during adulthood 09/04/2017 None hypertension Blood Pressure Values not checking blood pressure at home 09/04/2017 None hypertension Alleviating Factors medication 09/04/2017 None hypertension Pertinent Findings Denies dizziness 09/04/2017 None hypertension Pertinent Findings dyspnea 09/04/2017 "sometimes a little" hypertension Pertinent Findings edema 09/04/2017 None hypothyroid Onset and Resolution ongoing 09/04/2017 None hypothyroid Alleviating Factors medication 09/04/2017 None hypertension Pertinent Findings Denies anxiety 09/04/2017 None hypertension Pertinent Findings decreased energy 09/04/2017 None sores Location-Major on the head 08/08/2017 None sores Location-Head/Neck on the left cheek 08/08/2017 None sores Quality acute None sores Quality worsening 08/08/2017 None sores Quality burning 08/08/2017 None sores Quality dry 12/2017 None sores Quality enlarging 08/08/2017 None sores Quality erythematous 08/08/2017 None sores Quality flaking 08/08/2017 None sores Quality painful 08/08/2017 None sores Quality uncomfortable 08/08/2017 None sores Quality peeling 08/08/2017 None sores Color erythematous 08/08/2017 None sores Color black 12/2017 None sores Color brown 12/2017 None sores Color multicolored 08/08/2017 None sores Color nicole 2017 None sores Onset and Resolution sudden in onset 08/08/2017 None sores Onset and Resolution ongoing 08/08/2017 None sores Pertinent Findings Denies fever 08/08/2017 None sores Pertinent Findings pain 08/08/2017 None sores Pertinent Findings tenderness 08/08/2017 None sores Pertinent Findings Denies history of similar rash 08/08/2017 None sores Alleviating Factors no alleviating factors 08/08/2017 None sores Triggers topical applications 08/08/2017 imiquimod topically knee pain Location on the left 05/29/2017 None knee pain Location on the right 05/29/2017 None knee pain Quality intermittent 05/29/2017 None knee pain Limitation on Activities allows weight bearing activity 05/29/2017 None knee pain Alleviating Factors non weight bearing 05/29/2017 None knee pain Alleviating Factors rest 05/29/2017 None knee pain Exacerbating Factors weight bearing 05/29/2017 None knee pain Exacerbating Factors flexion of the knee 05/29/2017 None knee pain Pertinent Findings pain with movement 05/29/2017 None hypertension Quality primary hypertension 05/29/2017 None hypertension Quality stable 05/29/2017 None hypertension Onset and Resolution ongoing 05/29/2017 None hypertension Onset of Symptom during adulthood 05/29/2017 None hypertension Blood Pressure Values not checking blood pressure at home 05/29/2017 None hypertension Alleviating Factors medication 05/29/2017 None hypertension Pertinent Findings Denies dizziness 05/29/2017 None hypertension Pertinent Findings dyspnea 05/29/2017 "sometimes a little" hypertension Pertinent Findings edema 05/29/2017 None hypothyroid Onset and Resolution ongoing 05/29/2017 None hypothyroid Alleviating Factors medication 05/29/2017 None knee pain Location on the left 04/16/2017 None knee pain Quality intermittent 04/16/2017 None knee pain Limitation on Activities allows weight bearing activity 04/16/2017 None knee pain Alleviating Factors non weight bearing 04/16/2017 None knee pain Alleviating Factors rest 04/16/2017 None knee pain Exacerbating Factors weight bearing 04/16/2017 None knee pain Exacerbating Factors flexion of the knee 04/16/2017 None knee pain Pertinent Findings pain with movement 04/16/2017 None hypertension Quality primary hypertension 04/16/2017 None hypertension Quality stable 04/16/2017 None hypertension Onset and Resolution ongoing 04/16/2017 None hypertension Onset of Symptom during adulthood 04/16/2017 None hypertension Blood Pressure Values not checking blood pressure at home 04/16/2017 None hypertension Alleviating Factors medication 04/16/2017 None hypertension Pertinent Findings Denies dizziness 04/16/2017 None hypertension Pertinent Findings dyspnea 04/16/2017 "sometimes a little" hypertension Pertinent Findings edema 04/16/2017 None hypothyroid Onset and Resolution ongoing 04/16/2017 None hypothyroid Alleviating Factors medication 04/16/2017 None knee pain Location on the right 04/16/2017 None skin lesion Onset and Resolution ongoing 02/10/2017 None skin lesion Pertinent Findings Denies fever 02/10/2017 None skin lesion Location left lower leg 02/10/2017 None skin lesion Quality acute 02/10/2017 None skin lesion Quality erythematous 02/10/2017 None hypertension Quality primary hypertension 01/21/2017 None hypertension Quality stable 01/21/2017 None hypertension Onset and Resolution ongoing 01/21/2017 None hypertension Onset of Symptom during adulthood 01/21/2017 None hypertension Blood Pressure Values not checking blood pressure at home 01/21/2017 None hypertension Alleviating Factors medication 01/21/2017 None hypertension Pertinent Findings Denies dizziness 01/21/2017 None hypertension Pertinent Findings Denies dyspnea 01/21/2017 None hypertension Pertinent Findings edema 01/21/2017 None edema Quality chronic 01/21/2017 None edema Onset and Resolution ongoing 01/21/2017 None edema Onset of Symptom _ years ago 01/21/2017 None edema Frequency of Episodes daily 01/21/2017 None edema Pertinent Findings Denies limb redness 01/21/2017 hx of cellulitis edema Pertinent Findings Denies dyspnea 01/21/2017 None knee pain Location on the left 12/18/2016 None knee pain Pertinent Findings pain with movement 12/18/2016 None knee pain Quality intermittent 12/18/2016 None knee pain Limitation on Activities allows weight bearing activity 12/18/2016 None knee pain Alleviating Factors non weight bearing 12/18/2016 None knee pain Alleviating Factors rest 12/18/2016 None knee pain Exacerbating Factors weight bearing 12/18/2016 None knee pain Exacerbating Factors flexion of the knee 12/18/2016 None hypertension Quality primary hypertension 12/18/2016 None hypertension Onset and Resolution ongoing 12/18/2016 None hypertension Onset of Symptom during adulthood 12/18/2016 None hypothyroid Onset and Resolution ongoing 12/18/2016 None hypothyroid Alleviating Factors medication 12/18/2016 None hypertension Blood Pressure Values not checking blood pressure at home 12/18/2016 None hypertension Alleviating Factors medication 12/18/2016 None hypertension Pertinent Findings Denies dizziness 12/18/2016 None hypertension Pertinent Findings Denies dyspnea 12/18/2016 None hypertension Pertinent Findings edema 12/18/2016 None hypertension Quality stable 12/18/2016 None knee pain Location on the left 08/26/2016 None knee pain Quality catching 08/26/2016 None knee pain Quality popping 08/26/2016 None knee pain Quality tenderness 08/26/2016 None knee pain Quality grinding 08/26/2016 None knee pain Pertinent Findings limping 08/26/2016 None knee pain Pertinent Findings pain with movement 08/26/2016 None edema Onset and Resolution ongoing 02/27/2016 None edema Onset of Symptom _ weeks ago 02/27/2016 None edema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 Education: Patient Medication Summary Completed 08/08/2017 Visit Plan: Hypertension - well controlled - continue with current medications, continue with no added salt diet. Pt has been encouraged to exercise daily. The pt has been advised to call the office if there are any acute concerns about change in blood pressure readings at home. Hypothyroidism - pt with chronic hypothyroidism, continue with current medication, will monitor pt to signs or symptoms of lack of adequate supplementation. Pt is to continue with current dose of medication unless directed otherwise. Check labs at regular intervals wither q 3 months or q 6 months based on previous levels of control. Chronic Pain Syndrome - pt has chronic pain - has been maintained on current medications, has not sought out other medications, only uses PRN pain medications as directed, and understands the consequences of over- medication. 05/29/2017 Appointment: Alexandria Barron WPtel: [phone] [facility] (15 min) Moderate 05/29/2017 Patient Education: Patient Medication Summary Completed 05/29/2017 Appointment: Alexandria Barron [facility]Ptel[facility] [facility] (15 min) Moderate 04/30/2017 Referral: Alberta Wilks [address] [place], [place] [phone] Patient informed. Referral info faxed. Completed 04/28/2017 Visit Plan: Bradycardia - Referral to Dr. Wilks. Decrease Nadalol to 1/2 pill daily. Hypertension - well controlled - The pt has been advised to call the office if there are any acute concerns about change in blood pressure readings at home. Hypothyroidism - pt with chronic hypothyroidism , continue with current medication, will monitor pt to signs or symptoms of lack of adequate supplementation. Pt is to continue with current dose of medication unless directed otherwise. Check labs at regular intervals wither q 3 months or q 6 months based on previous levels of control. 04/16/2017 Appointment: Alexandria Barron WPtel[facility] [address] [facility] (15 min) Moderate 04/16/2017 Patient Education: Patient Medication Summary Completed 04/16/2017 Care Plan: Referral Order SNOMED-CT : [id number] Pending 04/16/2017 Visit Plan: Wound healed - no further treatment at this time. 02/24/2017 Appointment: Nurse Visit 02/24/2017 Patient Education: Patient Medication Summary Completed 02/24/2017 Appointment: Nurse Visit 02/18/2017 Appointment: Светлана Garcia WPtel: [facility]4 [facility] (30 min) Complex 02/14/2017 Visit Plan: Cellulitis - The patient was instructed in appropriate wound care. The patient was instructed to use the antibiotic as per RX. The patient is to call for any change in symptoms, increase in size of the lesion, increase in pain, worsening redness, warmth, discharge. 02/10/2017 Appointment: Светлана Garcia WPtel: [address] [facility] (30 min) Complex 02/10/2017 Patient Education: Patient Medication Summary Completed 02/10/2017 Visit Plan: Hypertension - well controlled - continue with current medications, continue with no added salt diet. Pt has been encouraged to exercise daily. The pt has been advised to call the office if there are any acute concerns about change in blood pressure readings at home. Edema - pt has been advised to elevate legs to prevent dependent edema, compression has been recommended to help to naturally decrease peripheral edema. Diuretic use has been discussed and pt has been instructed in appropriate use of such medication as necessary to further attempt to reduce peripheral edema. Elevated glucose - checked hgba 1c today - pt instructed to cut back on her chocolate intake. 01/21/2017 Appointment: Alexandria Barron WPtel: [facility]5 [facility] (15 min) Moderate 01/21/2017 Patient Education: Patient Medication Summary Completed 01/21/2017 Visit Plan: Hypertension - well controlled - continue with current medications, continue with no added salt diet. Pt has been encouraged to exercise daily. The pt has been advised to call the office if there are any acute concerns about change in blood pressure readings at home. Hypothyroidism - pt with chronic hypothyroidism, continue with current medication, will monitor pt to signs or symptoms of lack of adequate supplementation. Pt is to continue with current dose of medication unless directed otherwise. Check labs at regular intervals wither q 3 months or q 6 months based on previous levels of control. Knee pain - continue with supportive care, call if not improving. 12/18/2016 Appointment: Alexandria Barron WPtel: [facility] (15 min) Moderate 12/18/2016 Patient Education: Patient Medication Summary Completed 12/18/2016 Referral: Jose A Rios Patient informed. Referral info faxed. Completed Visit Plan: Hypertension - well controlled - continue with current medications, continue with no added salt diet. Pt has been encouraged to exercise daily. The pt has been advised to call the office if there are any acute concerns about change in blood pressure readings at home. Chronic Pain Syndrome - pt has chronic pain - has been maintained on current medications, has not sought out other medications, only uses PRN pain medications as directed , and understands the consequences of over-medication. Knee pain - referral to specialist 08/26/2016 Appointment: Alexandria Barron WPtel: [facility] [place] (15 min) Moderate 08/26/2016 Patient Education: Patient Medication Summary Completed 08/26/2016 Care Plan: Referral Order SNOMED-CT : [id number] Pending 08/26/2016 Appointment: Sandra Mcdonald WPtel: [facility] (30 min) Complex 03/11/2016 Visit Plan: Edema - improved-pt has been advised to elevate legs to prevent dependent edema, compression has been recommended to help to naturally decrease peripheral edema. Diuretic use has been discussed and pt has been instructed in appropriate use of such medication as necessary to further attempt to reduce peripheral edema. 02/27/2016 Appointment: Sandra Mcdonald WPtel: [facility] (30 min) Complex 02/27/2016 Patient Education: Patient Medication Summary Completed 02/27/2016 Appointment: Nurse Visit 02/20/2016 Patient Education: Patient Medication Summary Completed 02/20/2016 Visit Plan: Abrasion of scalp-healing well-continue wound care as directed Laceration left arm-healing well-continue wound care-may leave open to air Contusion of left gsr-hzmfltyol-dnbyjgdd to monitor Edema-elevate legs-follow up tomorrow for quick check of swelling 02/19/2016 Appointment: Sandra Mcdonald WPtel: [phone] [phone] (15 min) Moderate 02/19/2016 Patient Education: Patient Medication Summary Completed 02/19/2016 Appointment: Nurse Visit 02/13/2016 Visit Plan: Dressing change-return tomorrow 02/12/2016 Appointment: Nurse Visit 02/12/2016 Patient Education: Patient Medication Summary Completed 02/12/2016 Visit Plan: Hypertension - well controlled - continue with current medications, continue with no added salt diet. Pt has been encouraged to exercise daily. The pt has been advised to call the office if there are any acute concerns about change in blood pressure readings at home. Wounds on Scalp , arm, lower leg - recommended treatment, dressing changes every 2-3 days - monitor symptoms. - Pt going on a trip - she is to have her dressings changed while she is on her trip, then return to clinic the day she returns to have her wounds checked. Hypothyroidism - pt with chronic hypothyroidism, continue with current medication, will monitor pt to signs or symptoms of lack of adequate supplementation. Pt is to continue with current dose of medication unless directed otherwise. Check labs at regular intervals wither q 3 months or q 6 months based on previous levels of control. Edema - pt has been advised to elevate legs to prevent dependent edema, compression has been recommended to help to naturally decrease peripheral edema. Diuretic use has been discussed and pt has been instructed in appropriate use of such medication as necessary to further attempt to reduce peripheral edema. 02/08/2016 Appointment: Alexandria Barron WPtel[facility] [address] [facility] [place] (15 min) Moderate 02/08/2016 Patient Education: Patient Medication Summary Completed 02/08/2016 Visit Plan: URI/cough/bronchitis/allergies - Pt advised to increase fluids, vitamin C. Discussed natural and expected course of this diagnosis and need to alert me if symptoms do not follow expected course, or if any worse. RX sent to patient's pharmacy. Rocephin and kenalog injections today in the office Chronic Pain Syndrome - pt has chronic pain - has been maintained on current medications, has not sought out other medications, only uses PRN pain medications as directed, and understands the consequences of over- medication. 11/16/2015 Appointment: (30 min) Complex 11/16/2015 Patient Education: Patient Medication Summary Completed 11/16/2015 Visit Plan: Hypothyroidism - pt with chronic hypothyroidism , continue with current medication, will monitor pt to signs or symptoms of lack of adequate supplementation. Pt is to continue with current dose of medication unless directed otherwise. Check labs at regular intervals wither q 3 months or q 6 months based on previous levels of control. Lymphedema - recommended continued elevation and monitoring of swelling. 07/18/2015 Appointment: Alexandria Barron WPtel: [address] [place], [place] [id number] (15 min) Moderate 07/18/2015 Patient Education: Patient Medication Summary Completed 07/18/2015 Visit Plan: Left lower leg injury - The pt states that she dropped her laptop on her left lower leg. Pt has an area of erythema which is improving, still slightly warm, no edema, ecchymosis. Non tender to palpation The patient was instructed in appropriate wound care. The patient is to call for any change in symptoms, increase in size of the lesion, increase in pain, or other concerns. 06/27/2015 Appointment: (15 min) Moderate 06/27/2015 Patient Education: Patient Medication Summary Completed 06/27/2015 Visit Plan: Cellulitis - The pt states that she dropped her laptop on her left lower leg. Pt has an area of superficial ecchymosis, slight swelling, erythema and warmth approximately 3 inches x 2 inches in diameter. Only painful with palpation. The patient was instructed in appropriate wound care. The patient was instructed to take the antibiotic as per RX. The patient is to call for any change in symptoms, increase in size of the lesion, increase in pain, or other concerns. 06/19/2015 Appointment: (15 min) Moderate 06/19/2015 Patient Education: Patient Medication Summary Completed 06/19/2015 Visit Plan: Hypothyroidism - pt with chronic hypothyroidism , continue with current medication, will monitor pt to signs or symptoms of lack of adequate supplementation. Pt is to continue with current dose of medication unless directed otherwise. Check labs at regular intervals wither q 3 months or q 6 months based on previous levels of control. 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 Cellulitis - finish antibiotic course, call if not improving. 04/03/2015 Appointment: Alexandria Barron WPtel: [address] [facility] (15 min) Moderate 04/03/2015 Patient Education: Patient Medication Summary Completed 04/03/2015 Visit Plan: Rosacea-continue finacea as directed-add metronidazole cream twice daily-call if symptoms do not improve or if any worse. Idbmctzzye-iexaaka-omaszazw with wraps-no change in treatment 02/27/2015 Appointment: (15 min) Moderate 02/27/2015 Patient Education: Patient Medication Summary Completed 02/27/2015 Visit Plan: Right leg swelling-significantly more than left -plan for venous doppler-continued compression-elevated as much as possible. Patient verbalized understanding of plan. 01/26/2015 Appointment: (15 min) Moderate 01/26/2015 Patient Education: Patient Medication Summary Completed 01/26/2015 Visit Plan: Cellulitis - Oral antibiotic RX sent pt's pharmacy, call for acute change in symptoms, worsening redness, warmth, discharge. Take a probiotic while on antibiotic. RX sent to pt's pharmacy. Continue wrapping and elevating lower extremities as already doing. Return to clinic for worsening symptoms or if persist. Follow up appointment in 10 days. 01/16/2015 Appointment: (10 min) Simple 01/16/2015 Patient Education: Patient Medication Summary Completed 01/16/2015 Visit Plan: Hypothyroidism - pt with chronic hypothyroidism , continue with current medication, will monitor pt to signs or symptoms of lack of adequate supplementation. Pt is to continue with current dose of medication unless directed otherwise. Check labs at regular intervals wither q 3 months or q 6 months based on previous levels of control. Chronic Pain Syndrome - pt has chronic pain - has been maintained on current medications, has not sought out other medications, only uses PRN pain medications as directed , and understands the consequences of over-medication. Lymphedema - pt to be sent to therapy for lymphedema treatment. Back pain - sacroilitis - pt to have therapy for back pain. Dysphagia - Referral to Dr. Wetzel for EGD. 12/05/2014 Appointment: Alexandria Barron [facility]Ptel[facility] [place] (S) New Patient 12/05/2014 Patient Education: Patient Medication Summary Completed 12/05/2014 Patient Education: Hypertension Completed 12/05/2014 Referral: Jose A Rios Referral Appointment Requested Referral: [facility]ks [facility] [facility] [facility]erral Appointment Requested Referral: Amarjit Veronica [facility]el[facility] Referral Appointment Requested Referral: Rashard Dial WPtel: Referral Appointment Requested Instructions Comment Cream twice a day x 3 days, then powder 3 times a day x 5 days, then use the powder daily after that If you dont shower that day - take a clean warm wet wash rag and wash the area - then dry the area and then put the powder on. Yeast rash - The patient was instructed in appropriate care. The patient was instructed to use the ointment as per RX. The patient is to call for any change in symptoms, increase in size of the lesion, increase in pain, worsening redness, warmth, discharge. . Edema - improved-pt has been advised to elevate legs to prevent dependent edema, compression has been recommended to help to naturally decrease peripheral edema. Diuretic use has been discussed and pt has been instructed in appropriate use of such medication as necessary to further attempt to reduce peripheral edema. . Hypothyroidism - pt with chronic hypothyroidism, continue with current medication, will monitor pt to signs or symptoms of lack of adequate supplementation. Pt is to continue with current dose of medication unless directed otherwise. Check labs at regular intervals wither q 3 months or q 6 months based on previous levels of control. 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 Cellulitis - finish antibiotic course, call if not improving. . Cellulitis - The patient was instructed in appropriate wound care. The patient was instructed to use the antibiotic as per RX. The patient is to call for any change in symptoms, increase in size of the lesion, increase in pain, worsening redness, warmth, discharge. . Weeping edema bilateral lower legs - I have recommended 80mg lasix and potassium 20meq iv x 1 each - and sarah boots on lower legs. 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 Cellulitis - continue with oral antibiotics as previously directed, return to clinic as previously directed, call for acute change in symptoms, worsening redness, warmth, discharge. Keep appt with wound care. . Cellulitis - continue with oral antibiotics as previously directed, return to clinic as previously directed, call for acute change in symptoms, worsening redness, warmth, discharge. . Hypertension - well controlled - continue with current medications, continue with no added salt diet. Pt has been encouraged to exercise daily. The pt has been advised to call the office if there are any acute concerns about change in blood pressure readings at home. Hypothyroidism - pt with chronic hypothyroidism, continue with current medication, will monitor pt to signs or symptoms of lack of adequate supplementation. Pt is to continue with current dose of medication unless directed otherwise. Check labs at regular intervals wither q 3 months or q 6 months based on previous levels of control. Knee pain - continue with supportive care, call if not improving. pill spray is called pill glide or spray n swallow decrease spironolactone to 1/2 pill daily - (25mg daily) stop vitamin D - pill and get a vitamin D chewable change to chewable eye vitamins - [employer] makes gummies for eye vitamins . HTN - too well controlled - decrease spironolactone to 25mg daily - monitor edema and blood pressure closely. Hypothyroid - check labs today. Dysphagia with large pills - discussed a spray that can help make pills easier to swallow. Also advised pt to cut out pills that could be taken as gummies. - Such as vitamin D, ocuvite/preservision. constipation - stop docusate and start prune juice. Edema - improved with lymphedema clinic treatments. Chronic pain - decrease oxycodone from qid to tid prn - pt takes less than 2 per day on average per her report. . Abrasion of scalp-healing well-continue wound care as directed Laceration left arm-healing well-continue wound care-may leave open to air Contusion of left qyb-qrrmrxfji-zskoegmk to monitor Edema-elevate legs-follow up tomorrow for quick check of swelling Antibiotic prescription sent to your pharmacy Take a probiotic while on antibiotic Keep wrapping both lower extremities Keep lower extremities elevated . Cellulitis - Oral antibiotic RX sent pt's pharmacy, call for acute change in symptoms, worsening redness, warmth, discharge. Take a probiotic while on antibiotic. RX sent to pt's pharmacy. Continue wrapping and elevating lower extremities as already doing. Return to clinic for worsening symptoms or if persist. Follow up appointment in 10 days. . Hypertension - well controlled - continue with current medications, continue with no added salt diet. Pt has been encouraged to exercise daily. The pt has been advised to call the office if there are any acute concerns about change in blood pressure readings at home. Wounds on Scalp, arm, lower leg - recommended treatment, dressing changes every 2-3 days - monitor symptoms. - Pt going on a trip - she is to have her dressings changed while she is on her trip, then return to clinic the day she returns to have her wounds checked. Hypothyroidism - pt with chronic hypothyroidism, continue with current medication, will monitor pt to signs or symptoms of lack of adequate supplementation. Pt is to continue with current dose of medication unless directed otherwise. Check labs at regular intervals wither q 3 months or q 6 months based on previous levels of control. Edema - pt has been advised to elevate legs to prevent dependent edema, compression has been recommended to help to naturally decrease peripheral edema. Diuretic use has been discussed and pt has been instructed in appropriate use of such medication as necessary to further attempt to reduce peripheral edema. zpack rocephin and kenalog injection today in the office call friday if not better . URI/cough/bronchitis/allergies - Pt advised to increase fluids, vitamin C. Discussed natural and expected course of this diagnosis and need to alert me if symptoms do not follow expected course, or if any worse. RX sent to patient's pharmacy. Rocephin and kenalog injections today in the office Chronic Pain Syndrome - pt has chronic pain - has been maintained on current medications, has not sought out other medications, only uses PRN pain medications as directed, and understands the consequences of over-medication. . Hypertension - well controlled - continue with current medications, continue with no added salt diet. Pt has been encouraged to exercise daily. The pt has been advised to call the office if there are any acute concerns about change in blood pressure readings at home. Hypothyroidism - pt with chronic hypothyroidism, continue with current medication, will monitor pt to signs or symptoms of lack of adequate supplementation. Pt is to continue with current dose of medication unless directed otherwise. Check labs at regular intervals wither q 3 months or q 6 months based on previous levels of control. Skin lesion - keratosis on face - recommended pt to use vaseline at night on lesions, wash in morning then use cerave cream on lesion. Call if acutely enlarging. Left knee pain and right and left finger stiffness - pennsaid sample . Chronic pain - continue with the oxycodone at 5mg qid - reiterated to nursing staff at the facility to make sure that Anat is getting the medication at night - she has had several missed doses due to lack of timely administration. Edema - chronic - improved with compression wraps and elevation. Hypertension - well controlled - continue with current medications, continue with no added salt diet. Pt has been encouraged to exercise daily. The pt has been advised to call the office if there are any acute concerns about change in blood pressure readings at home. Sleep apnea - [facility] to go to her house to pick-up the oxygen concentrator upon her return to home as she has not been using it due to lack of hypoxia with her weight loss. Pressure ulcer on buttock - Calmoseptine on buttock. Pneumovax - pneumonia shot - you had the prevnar 13 shot on July 07, 2014 get the HIGH RISK flu shot . Hypothyroidism - pt with chronic hypothyroidism, continue with current medication, will monitor pt to signs or symptoms of lack of adequate supplementation. Pt is to continue with current dose of medication unless directed otherwise. Check labs at regular intervals wither q 3 months or q 6 months based on previous levels of control. Lymphedema - recommended continued elevation and monitoring of swelling. . Left lower leg injury - The pt states that she dropped her laptop on her left lower leg. Pt has an area of erythema which is improving , still slightly warm, no edema, ecchymosis. Non tender to palpation The patient was instructed in appropriate wound care. The patient is to call for any change in symptoms, increase in size of the lesion, increase in pain, or other concerns. . Rosacea-continue finacea as directed-add metronidazole cream twice daily-call if symptoms do not improve or if any worse. Heebagazfg-sgbflkk-nchglrvo with wraps-no change in treatment . Hypertension - well controlled - continue with current medications, continue with no added salt diet. Pt has been encouraged to exercise daily. The pt has been advised to call the office if there are any acute concerns about change in blood pressure readings at home. Chronic Pain Syndrome - pt has chronic pain - has been maintained on current medications, has not sought out other medications, only uses PRN pain medications as directed, and understands the consequences of over-medication. Knee pain - referral to specialist . Cellulitis - The pt states that she dropped her laptop on her left lower leg. Pt has an area of superficial ecchymosis, slight swelling, erythema and warmth approximately 3 inches x 2 inches in diameter. Only painful with palpation. The patient was instructed in appropriate wound care. The patient was instructed to take the antibiotic as per RX. The patient is to call for any change in symptoms, increase in size of the lesion, increase in pain, or other concerns. VENOUS DOPPLER RIGHT LEG . Right leg swelling-significantly more than left-plan for venous doppler- continued compression-elevated as much as possible. Patient verbalized understanding of plan. . Cellulitis - continue with oral antibiotics as previously directed, return to clinic as previously directed, call for acute change in symptoms, worsening redness, warmth, discharge. Edema - pt has been advised to elevate legs to prevent dependent edema, compression has been recommended to help to naturally decrease peripheral edema. Diuretic use has been discussed and pt has been instructed in appropriate use of such medication as necessary to further attempt to reduce peripheral edema. . Wound healed - no further treatment at this time. get labs one week before next appointment in 3 months . Hypertension - well controlled - continue with current medications, continue with no added salt diet. Pt has been encouraged to exercise daily. The pt has been advised to call the office if there are any acute concerns about change in blood pressure readings at home. Hypothyroidism - pt with chronic hypothyroidism, continue with current medication, will monitor pt to signs or symptoms of lack of adequate supplementation. Pt is to continue with current dose of medication unless directed otherwise. Check labs at regular intervals wither q 3 months or q 6 months based on previous levels of control. Chronic Pain Syndrome - pt has chronic pain - has been maintained on current medications, has not sought out other medications, only uses PRN pain medications as directed, and understands the consequences of over-medication. . Hypertension - well controlled - continue with current medications, continue with no added salt diet. Pt has been encouraged to exercise daily. The pt has been advised to call the office if there are any acute concerns about change in blood pressure readings at home. Hypothyroidism - pt with chronic hypothyroidism, continue with current medication, will monitor pt to signs or symptoms of lack of adequate supplementation. Pt is to continue with current dose of medication unless directed otherwise. Check labs at regular intervals wither q 3 months or q 6 months based on previous levels of control. Lymphedema - recommended second compression wrap for right lower leg and continue use on left lower leg. Recommended patient to keep legs elevated when seated. . Bradycardia - Referral to Dr. Wilks. Decrease Nadalol to 1/2 pill daily. Hypertension - well controlled - The pt has been advised to call the office if there are any acute concerns about change in blood pressure readings at home. Hypothyroidism - pt with chronic hypothyroidism, continue with current medication, will monitor pt to signs or symptoms of lack of adequate supplementation. Pt is to continue with current dose of medication unless directed otherwise. Check labs at regular intervals wither q 3 months or q 6 months based on previous levels of control. . Hypertension - well controlled - continue with current medications, continue with no added salt diet. Pt has been encouraged to exercise daily. The pt has been advised to call the office if there are any acute concerns about change in blood pressure readings at home. Edema - pt has been advised to elevate legs to prevent dependent edema, compression has been recommended to help to naturally decrease peripheral edema. Diuretic use has been discussed and pt has been instructed in appropriate use of such medication as necessary to further attempt to reduce peripheral edema. Elevated glucose - checked hgba 1c today - pt instructed to cut back on her chocolate intake. . Dressing change-return tomorrow . Hypothyroidism - pt with chronic hypothyroidism, continue with current medication, will monitor pt to signs or symptoms of lack of adequate supplementation. Pt is to continue with current dose of medication unless directed otherwise. Check labs at regular intervals wither q 3 months or q 6 months based on previous levels of control. Chronic Pain Syndrome - pt has chronic pain - has been maintained on current medications, has not sought out other medications, only uses PRN pain medications as directed, and understands the consequences of over-medication. Lymphedema - pt to be sent to therapy for lymphedema treatment. Back pain - sacroilitis - pt to have therapy for back pain. Dysphagia - Referral to Dr. Wetzel for EGD. kenalog . Bronchitis- Pt advised to increase fluids, vitamin C. Discussed natural and expected course of this diagnosis and need to alert me if symptoms do not follow expected course, or if any worse. RX sent to patient's pharmacy. . Skin lesion on face - lesion removed with scalpel and dressed with maycol pt to RTC in 10 days for treatment of the lesion if not fully resolved.
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
[2018-05-15] MEDS ORDERED: CEFD300C3 PO (15:59)
[2018-05-15 16:50] VITALS: BP 98/55
== END 2018-05-15 16:50 ==
LOC: EDUNIT# 10:49 → ER 10:50
DX: R53.1 Weakness (principal); N39.0 Urinary tract infection, site not specified; G56.21 Lesion of ulnar nerve, right upper limb; G47.30 Sleep apnea, unspecified; E78.00 Pure hypercholesterolemia, unspecified; E03.9 Hypothyroidism, unspecified; F32.9 Major depressive disorder, single episode, unspecified; D64.9 Anemia, unspecified; Z85.3 Personal history of malignant neoplasm of breast; Z85.828 Personal history of other malignant neoplasm of skin; Z87.19 Personal history of other diseases of the digestive system; Z86.010 Personal history of colon polyps; Z88.2 Allergy status to sulfonamides; Z87.891 Personal history of nicotine dependence; Z90.12 Acquired absence of left breast and nipple
CPT/HCPCS: 36415; 70450; 71045; 80053; 81000; 83605; 84484; 85025; 87040; 87070; 87077; 87088; 87186; 87205; 93005

== ENCOUNTER → 2018-05-25 | Outpatient (CLI) | payer MEDICARE ==
[~2018-05-25] MED LIST changes: +CEFD300C3 PO
== END ==
LOC: WOUNDCARE 08:52
PROVIDERS: ATTEND Surgery
DX: I87.331 Chronic venous hypertension (idiopathic) with ulcer and inflammation of right lower extremity (principal); L97.211 Non-pressure chronic ulcer of right calf limited to breakdown of skin; L98.491 Non-pressure chronic ulcer of skin of other sites limited to breakdown of skin; L22 Diaper dermatitis; I89.0 Lymphedema, not elsewhere classified
CPT/HCPCS: 29581

== ENCOUNTER 2018-06-01 09:26 | Emergency (ER) | payer MEDICARE ==
[~2018-06-01] VITALS: Ht 157.5 cm; Wt 63.5 kg
[2018-06-01 09:49] LABS: BILIRUBIN,URINE NEGATIVE (NEGATIVE); CLARITY,URINE CLEAR; COLOR,URINE AMBER; GLUCOSE, URINE (UA) NEGATIVE (NEGATIVE); KETONES,URINE 1+ (NEGATIVE); LEUKOCYTE ESTERASE ,URINE 1+ (NEGATIVE); NITRITE,URINE NEGATIVE (NEGATIVE); PH,URINE 5 (5-9); PROTEIN,URINE 2+ (NEGATIVE); UROBILINOGEN,URINE 1 MG/DL (NORMAL)
[2018-06-01 10:00] LABS: BACTERIA,URINE TRACE /HPF; RBC,URINE RARE /HPF; SQUAMOUS EPITHELIAL CELL,UR 0-2 /HPF; WBC,URINE 0-2 /HPF
[2018-06-01 10:01] LABS: HYALINE CASTS, URINE 0-2 /LPF
--- NOTE | 2018-06-01 10:23 | Diagnostic Imaging Report ---
PROCEDURE: CT head and CT cervical spine without contrast. TECHNIQUE: Multiple contiguous axial images were obtained through the brain and cervical spine without the use of intravenous contrast. Sagittal and coronal reformations through the cervical spine were then performed. INDICATION: Fall hitting the right side of the forehead. CT head: Comparison is made with prior CT head from 05/15/2018. The ventricles and sulci are appropriate for the patient's age. Moderate periventricular hypodensity is seen consistent with senescent change. There is no sulcal effacement or midline shift. No acute intra-axial or extra-axial hemorrhage is detected. The cisterns are patent. The visualized paranasal sinuses are clear apart from opacification of the right half of the sphenoid sinus which appears chronic. IMPRESSION: 1. No acute intracranial process is detected. 2. Sphenoid sinus mucosal disease. CT cervical spine: There is reversal of the normal cervical lordotic curvature. There is minimal anterolisthesis of C4 on C5. Significant multilevel degenerative disc disease is seen with variable disc space narrowing and marginal osteophyte formation. Marked facet arthropathy is seen throughout all levels of the cervical spine. No fractures identified. The prevertebral tissues are within normal limits. Odontoid is intact. IMPRESSION: Severe cervical spondylosis. No acute bony abnormality is detected. Dictated by: Dictated on workstation # [id number]
--- NOTE | 2018-06-01 10:28 | Diagnostic Imaging Report ---
INDICATION: Hip injury from a fall AP view pelvis shows no fracture, dislocation or other acute abnormalities. IMPRESSION: Negative pelvis. Dictated by: Dictated on workstation # [id number]
--- NOTE | 2018-06-01 10:29 | Diagnostic Imaging Report ---
INDICATION: Fall. Time of exam: 10:39 AM Correlation is made with prior study from 05/15/2018. The heart size is stable. The lungs are clear. No infiltrates are seen. No effusion or pneumothorax is identified. IMPRESSION: No acute cardiopulmonary process is identified. Dictated by: Dictated on workstation # [id number]
--- NOTE | 2018-06-01 10:41 | ED Fall/Injury ---
General Chief Complaint: Trauma-Non Activation Stated Complaint: FALL Nursing Triage Note: PT BROUGHT IN BY EMS FROM HOME WITH COMPLAINT OF FALL. STATES SHE TURNED AND TRIPPED AND LANDED ON RIGHT SIDE. COMPLAINING OF RIGHT ELBOW AND RIGHT HIP PAIN. Source: patient Exam Limitations: no limitations History of Present Illness Date Seen by Provider: Jun 01, 2018 Time Seen by Provider: 09:26 Initial Comments This 82-year-old woman presents to the emergency room via EMS after having a fall in her home. She reports pivoting or doing a "spin move" that caused her to fall. She bumped her head against the wall and then slid to the floor onto her right side. She complains of some hip pain and elbow pain. She denies any loss of consciousness. Patient has some mobility problems due to generalized weakness and wounds on her lower extremities. She is currently receiving wound care. Patient felt somewhat ill yesterday evening but denies any fever. She has had a mildly productive cough recently. She [facility]. She states the cough was present the past few days at the jail as well. She reports it was "checked out" and no pneumonia was found.. She was recently treated for a urinary tract infection. She is alert and oriented upon arrival. Location Injury Occurred: HOME Allergies and Home Medications Allergies Coded Allergies: Sulfa (Sulfonamide Antibiotics) (Verified Allergy, Unknown, 02/23/18) Home Medications Azithromycin 250 Mg Tablet, 250 MG PO DAILY Prescribed by: CHRISTOPHER BARRON on 02/26/18 0842 Cefdinir 300 Mg Capsule, 300 MG PO BID Prescribed by: RINA LEONARDO on 05/15/18 1559 Cephalexin 500 Mg Capsule, 500 MG PO QID Prescribed by: CHRISTOPHER BARRON on 02/26/18 0842 Cholecalciferol (Vitamin D3) 2,000 Unit Capsule, 2,000 UNIT PO HS, (Reported) Cyclosporine 1 Each Droperette, 1 DROP OU BID, (Reported) Docusate Sodium 100 Mg Capsule, 100 MG PO HS, (Reported) Lactobacillus Acidophilus 1 Each Capsule, 1 EACH PO BID Prescribed by: CHRISTOPHER BARRON on 02/26/18 0842 Levothyroxine Sodium 100 Mcg Tablet, 100 MCG PO DAILY, (Reported) TAKES ALONG WITH 88MCG TABLET Levothyroxine Sodium 88 Mcg Tablet, 88 MCG PO DAILY, (Reported) TAKES ALONG WITH 100MCG TABLET Nadolol 20 Mg Tablet, 10 MG PO DAILY, (Reported) TAKES 1/2 (20MG) TABLET Spironolactone 50 Mg Tablet, 50 MG PO DAILY, (Reported) Vit A/C/E/Zinc/Co 1 Cap Capsule, 1 CAP PO BID, (Reported) [Oxycodone Hcl] 5 MG TAB, 5 MG PO QID Prescribed by: CHRISTOPHER BARRON on 02/26/18 0842 Patient Home Medication List Home Medication List Reviewed: Yes Review of Systems Review of Systems Constitutional: see HPI Eyes: No Symptoms Reported Ears, Nose, Mouth, Throat: no symptoms reported Respiratory: no symptoms reported Cardiovascular: no symptoms reported Gastrointestinal: no symptoms reported Genitourinary: no symptoms reported : No Musculoskeletal: see HPI Skin: no symptoms reported Psychiatric/Neurological: No Symptoms Reported Past Dhwrceg-Srwscw-Zqqann Hx Patient Social History Alcohol Use: Denies Use Recreational Drug Use: No Smoking Status: Former Smoker Type Used: Cigarettes Former Smoker, Quit: Jun 03, 1990 2nd Hand Smoke Exposure: No Recent Foreign Travel: No Contact w/Someone Who Travel: No Recent Infectious Disease Expo: No Recent Hopitalizations: No Immunizations Up To Date Tetanus Booster (TDap): Unknown Date of Pneumonia Vaccine: Jul 11, 2014 Date of Influenza Vaccine: Apr 08, 2017 Seasonal Allergies Seasonal Allergies: No Past Medical History Surgeries: Yes (RIGHT RCR, MULTI SKIN LESIONS REMOVED, LOWER BACK FUSION, LEFT MASTECTOMY, ) Respiratory: Yes (CPAP) Sleep Apnea Cardiac: Yes High Cholesterol Neurological: No Reproductive Disorders: No Sexually Transmitted Disease: No Genitourinary: No Gastrointestinal: Yes (polyp removed from colon) Liver Disease/Jaundice, Cirrhosis Musculoskeletal: Yes (arthritis) Arthritis Endocrine: Yes Hypothyroidsim HEENT: No (PRIOR CATARACT SURGERY) Cataract Cancer: Yes (LYMPHADEMA) Breast Psychosocial: Yes Depression Integumentary: Yes (SKIN CANCER REMOVAL AREAS, LYMPHEDEMA LOWER EXT) Recent Skin Changes Blood Disorders: Yes (anemia, leukopenia and thrombocytopenia) Family Medical History Patient reports no known family medical history. No Pertinent Family Hx Physical Exam Vital Signs Vital Signs - First Documented 06/01/18 09:26 Temp 98.2 Pulse 78 Resp 20 B/P (MAP) 114/56 (75) Pulse Ox 97 O2 Delivery Room Air Capillary Refill : Less Than 3 Seconds Height, Weight, BMI Height: 5'2.00" Weight: 140lbs. 8.0oz. [id number]; 25.2 BMI Method:Stated General Appearance: WD/WN, no apparent distress, thin HEENT: PERRL/EOMI, pharynx normal, other (Skin lesion on the crown of her scalp ) Neck: non-tender, normal inspection Cardiovascular: regular rate, rhythm, no edema, systolic murmur Respiratory: lungs clear, normal breath sounds, no respiratory distress, no accessory muscle use Gastrointestinal: normal bowel sounds, non tender, soft Extremities: normal inspection, pelvis stable, pedal edema, other (Lower extremity chronic wounds were wrapped. 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 II-XII nml as tested, no motor/sensory deficits, alert, normal mood/affect, oriented x 3 Skin: normal color, warm/dry, other (Skin lesion on the scalp) [place] Coma Score Best Eye Response: (4) Open Spontaneously Best Verbal Response: (5) Oriented Best Motor Response: (6) Obeys Commands [place] Total: 15 Progress/Results/Core Measures Results/Orders Lab Results Laboratory Tests Test 06/01/18 09:44 Range/Units Urine Color VIRGIE H Urine Clarity CLEAR Urine pH 5 5-9 Urine Specific [place] 1.025 H 1.016-1.022 Urine Protein 2+ H NEGATIVE Urine Glucose (UA) NEGATIVE NEGATIVE Urine Ketones 1+ H NEGATIVE Urine Nitrite NEGATIVE NEGATIVE Urine Bilirubin NEGATIVE NEGATIVE Urine Urobilinogen 1 NORMAL MG/DL Urine Leukocyte Esterase 1+ H NEGATIVE Urine RBC (Auto) NEGATIVE NEGATIVE Urine RBC RARE /HPF Urine WBC 0-2 /HPF Urine Squamous Epithelial Cells 0-2 /HPF Urine Crystals NONE /LPF Urine Bacteria TRACE /HPF Urine Casts PRESENT /LPF Urine Hyaline Casts 0-2 H /LPF Urine Mucus SMALL H /LPF Urine Culture Indicated NO My Orders Orders - UVALDO FAJARDO MD Ct Head/Cervical Spine Wo (06/01/18 09:34) Chest 1 View, Ap/Pa Only (06/01/18 09:34) Pelvis (06/01/18 09:34) Ua Culture If Indicated (06/01/18 09:36) Vital Signs/I&O 06/01/18 06/01/18 09:26 11:41 Temp 98.2 98.2 Pulse 78 78 Resp 20 20 B/P (MAP) 114/56 (75) 114/56 (75) Pulse Ox 97 97 O2 Delivery Room Air Blood Pressure Mean: 75 Progress Progress Note : Progress Note Imaging studies were unremarkable. Patient had no evidence of persistent UTI during dialysis. Patient was dismissed home into a care of her son. Patient missed her wound care appointment this morning. I did contact wound care and they asked her to call the clinic to reschedule. Diagnostic Imaging Diagonstic Imaging: Xray Plain Films/CT/US/NM/MRI: chest Comments NAME: DEV MALDONADO [facility] REC#: [id number] PT STATUS: DEP ER : 1935 PHYSICIAN: UVALDO FAJARDO MD ADMIT DATE: 06/01/18/ER Signed Date of Exam: 06/01/18 CHEST 1 VIEW, AP/PA ONLY INDICATION: Fall. Time of exam: 10:39 AM Correlation is made with prior study from 05/15/2018. The heart size is stable. The lungs are clear. No infiltrates are seen. No effusion or pneumothorax is identified. IMPRESSION: No acute cardiopulmonary process is identified. Dictated by: Dictated on workstation # [id number] Dict: 06/01/18 1025 Trans: 06/01/18 1554 Interpreted by: CARLITOS BABIN MD Electronically signed by: CARLITOS BABIN MD 06/01/18 1554 Diagonstic Imaging: CT Plain Films/CT/US/NM/MRI: c-spine, head Comments NAME: DEV MALDONADO [facility] REC#: [id number] PT STATUS: DEP ER : 1935 PHYSICIAN: UVALDO FAJARDO MD ADMIT DATE: 06/01/18/ER Signed Date of Exam: 06/01/18 CT HEAD/CERVICAL SPINE WO PROCEDURE: CT head and CT cervical spine without contrast. TECHNIQUE: Multiple contiguous axial images were obtained through the brain and cervical spine without the use of intravenous contrast. Sagittal and coronal reformations through the cervical spine were then performed. INDICATION: Fall hitting the right side of the forehead. CT head: Comparison is made with prior CT head from 05/15/2018. The ventricles and sulci are appropriate for the patient's age. Moderate periventricular hypodensity is seen consistent with senescent change. There is no sulcal effacement or midline shift. No acute intra-axial or extra-axial hemorrhage is detected. The cisterns are patent. The visualized paranasal sinuses are clear apart from opacification of the right half of the sphenoid sinus which appears chronic. IMPRESSION: 1. No acute intracranial process is detected. 2. Sphenoid sinus mucosal disease. CT cervical spine: There is reversal of the normal cervical lordotic curvature. There is minimal anterolisthesis of C4 on C5. Significant multilevel degenerative disc disease is seen with variable disc space narrowing and marginal osteophyte formation. Marked facet arthropathy is seen throughout all levels of the cervical spine. No fractures identified. The prevertebral tissues are within normal limits. Odontoid is intact. IMPRESSION: Severe cervical spondylosis. No acute bony abnormality is detected. Dictated by: Dictated on workstation # [id number] Dict: 06/01/18 1015 Trans: 06/01/18 1554 Interpreted by: CARLITOS BABIN MD Electronically signed by: CARLITOS BABIN MD 06/01/18 1553 Diagonstic Imaging: Xray Plain Films/CT/US/NM/MRI: pelvis Comments NAME: DEV MALDONADO [facility] REC#: [id number] PT STATUS: DEP ER : 1935 PHYSICIAN: UVALDO FAJARDO MD ADMIT DATE: 06/01/18/ER Signed Date of Exam: 06/01/18 PELVIS INDICATION: Hip injury from a fall AP view pelvis shows no fracture, dislocation or other acute abnormalities. IMPRESSION: Negative pelvis. Dictated by: Dictated on workstation # [id number] Dict: 06/01/18 1026 Trans: 06/01/18 1156 Interpreted by: RIKY PUENTE MD Electronically signed by: RKIY PUENTE MD 06/01/18 1156 Departure Impression Primary Impression: Fall on same level Qualified Codes: W18.30XA - Fall on same level, unspecified, initial encounter Additional Impression: Cough Disposition: 01 HOME, SELF-CARE Condition: Stable Departure-Patient Inst. Referrals: CHRISTOPHER BARRON MD (PCP/Family) Primary Care Physician Patient Instructions: Preventing Falls in the Older Adult Add. Discharge Instructions: Continue to use your assisted devices to get around the home. Follow-up with Dr. Barron as soon as possible. Return to care if you have any problems or concerns. Your CTs and x-rays showed no significant injuries. You do not have a bladder infection at this time. All discharge instructions reviewed with patient and/or family. Voiced understanding. Copy Copies To 1: CHRISTOPHER BARRON MD, JOSHUA T MD Jun 01, 2018 10:41
[2018-06-01 11:41] VITALS: BP 114/56
== END 2018-06-01 11:41 | disposition home or self-care (01) ==
LOC: ER 09:26 → EDUNIT# 09:26 → ER 11:41
DX: M25.521 Pain in right elbow (principal); M25.551 Pain in right hip; R05 Cough; G47.30 Sleep apnea, unspecified; E78.00 Pure hypercholesterolemia, unspecified; E03.9 Hypothyroidism, unspecified; F32.9 Major depressive disorder, single episode, unspecified; D64.9 Anemia, unspecified; Z85.828 Personal history of other malignant neoplasm of skin; Z85.3 Personal history of malignant neoplasm of breast; Z86.010 Personal history of colon polyps; Z87.19 Personal history of other diseases of the digestive system; Z88.2 Allergy status to sulfonamides; Z87.891 Personal history of nicotine dependence; Z98.1 Arthrodesis status; Z90.12 Acquired absence of left breast and nipple; W01.0XXA Fall on same level from slipping, tripping and stumbling without subsequent striking against object, initial encounter
CPT/HCPCS: 70450; 71045; 72125; 72170; 81000

== ENCOUNTER → 2018-06-03 | Outpatient (CLI) | payer MEDICARE | LOC: WOUNDCARE 09:47 | PROVIDERS: ATTEND Surgery | DX: I87.331 Chronic venous hypertension (idiopathic) with ulcer and inflammation of right lower extremity (principal); L97.211 Non-pressure chronic ulcer of right calf limited to breakdown of skin; L98.491 Non-pressure chronic ulcer of skin of other sites limited to breakdown of skin; L22 Diaper dermatitis; I89.0 Lymphedema, not elsewhere classified | CPT/HCPCS: 99213 ==

== ENCOUNTER → 2018-06-08 | Outpatient (CLI) | payer MEDICARE | LOC: WOUNDCARE 08:50 | PROVIDERS: ATTEND Surgery | DX: I87.333 Chronic venous hypertension (idiopathic) with ulcer and inflammation of bilateral lower extremity (principal); L97.212 Non-pressure chronic ulcer of right calf with fat layer exposed; L97.221 Non-pressure chronic ulcer of left calf limited to breakdown of skin; I89.0 Lymphedema, not elsewhere classified | CPT/HCPCS: 99213 ==

== ENCOUNTER 2018-06-16 16:13 | Observation (INO) | payer MEDICARE ==
[~2018-06-16] VITALS: Ht 157.5 cm; Wt 55.2 kg
[2018-06-16] MEDS ORDERED: NS IV 500 ML 500 ML IV ONE (16:22)
--- NOTE | 2018-06-16 16:48 | ED General ---
General Stated Complaint: PAIN IN R ARM Source of Information: Patient Exam Limitations: No Limitations History of Present Illness Date Seen by Provider: Jun 16, 2018 Time Seen by Provider: 16:18 Initial Comments Here with a variety of complaints. States that she hasn't urinated in a week and has not had a bowel movement in a week. Apparently slid out of her power lift chair today but did not hit the ground. She was able to stay mostly in the chair for about 2 hours until a friend came by put cushions on the floor and then she slid down onto the questions. Did not hit her head or lose consciousness. She does live at home alone. She has Meals on Wheels to assist. She takes pain medicines and states that's probably why she is not having a bowel movement. She does have history of bilateral lower extremity edema and gets raps for that. She does have wounds there but states those are better and has a wound on her bottom that is being cared for by wound care and also states that one is better. Denies nausea, vomiting or diarrhea. Denies chest pain or breathing problems. Does have problems with her right arm that occurs after she sleeps in her power chair. She is unable to lift her hand at the wrist after sleeping in the prior chair. She has been sleeping in the chair because she is too weak to get out of the chair. Timing/Duration: 1 Week, Getting Worse Severity: Mild Associated Systoms: No Chest Pain, No Cough, No Fever/Chills, No Loss of Appetite, No Nausea/Vomiting, No Shortness of Air; Weakness Allergies and Home Medications Allergies Coded Allergies: Sulfa (Sulfonamide Antibiotics) (Verified Allergy, Unknown, 02/23/18) Home Medications Azithromycin 250 Mg Tablet, 250 MG PO DAILY Prescribed by: CHRISTOPHER BARRON on 02/26/18 0842 Cefdinir 300 Mg Capsule, 300 MG PO BID Prescribed by: RINA LEONARDO on 05/15/18 1559 Cephalexin 500 Mg Capsule, 500 MG PO QID Prescribed by: CHRISTOPHER BARRON on 02/26/18 0842 Cholecalciferol (Vitamin D3) 2,000 Unit Capsule, 2,000 UNIT PO HS, (Reported) Cyclosporine 1 Each Droperette, 1 DROP OU BID, (Reported) Docusate Sodium 100 Mg Capsule, 100 MG PO HS, (Reported) Lactobacillus Acidophilus 1 Each Capsule, 1 EACH PO BID Prescribed by: CHRISTOPHER BARRON on 02/26/18841 Levothyroxine Sodium 100 Mcg Tablet, 100 MCG PO DAILY, (Reported) TAKES ALONG WITH 88MCG TABLET Levothyroxine Sodium 88 Mcg Tablet, 88 MCG PO DAILY, (Reported) TAKES ALONG WITH 100MCG TABLET Nadolol 20 Mg Tablet, 10 MG PO DAILY, (Reported) TAKES 1/2 (20MG) TABLET Spironolactone 50 Mg Tablet, 50 MG PO DAILY, (Reported) Vit A/C/E/Zinc/Co 1 Cap Capsule, 1 CAP PO BID, (Reported) [Oxycodone Hcl] 5 MG TAB, 5 MG PO QID Prescribed by: CHRISTOPHER BARRON on 02/26/18841 Patient Home Medication List Home Medication List Reviewed: Yes Review of Systems Review of Systems Constitutional: see HPI; No chills, No fever; weakness EENTM: no symptoms reported Respiratory: no symptoms reported; No cough, No short of breath Cardiovascular: No chest pain; edema; No palpitations Gastrointestinal: No abdominal pain; constipation; No nausea, No vomiting Genitourinary: decreased output; No dysuria Musculoskeletal: muscle weakness; No neck pain Skin: change in color; No lesions Psychiatric/Neurological: Denies Headache; Weakness Hematologic/Lymphatic: No Symptoms Reported All Other Systems Reviewed Negative Unless Noted: Yes Past Lzeepfy-Eoqygp-Idrpsl Hx Past Med/Social Hx: Reviewed Nursing Past Med/Soc Hx Patient Social History Alcohol Use: Denies Use Recreational Drug Use: No Smoking Status: Former Smoker Type Used: Cigarettes Former Smoker, Quit: Jun 03, 1990 2nd Hand Smoke Exposure: No Recent Hopitalizations: No Immunizations Up To Date Tetanus Booster (TDap): Unknown Date of Pneumonia Vaccine: Jul 11, 2014 Date of Influenza Vaccine: Apr 08, 2017 Seasonal Allergies Seasonal Allergies: No Past Medical History Surgeries: Yes (RIGHT RCR, MULTI SKIN LESIONS REMOVED, LOWER BACK FUSION, LEFT MASTECTOMY, ) Respiratory: Yes (CPAP) Sleep Apnea Cardiac: Yes High Cholesterol Neurological: No Reproductive Disorders: No Sexually Transmitted Disease: No Genitourinary: No Gastrointestinal: Yes (polyp removed from colon) Liver Disease/Jaundice, Cirrhosis Musculoskeletal: Yes (arthritis) Arthritis Endocrine: Yes Hypothyroidsim HEENT: No (PRIOR CATARACT SURGERY) Cataract Cancer: Yes (LYMPHADEMA) Breast Psychosocial: Yes Depression Integumentary: Yes (SKIN CANCER REMOVAL AREAS, LYMPHEDEMA LOWER EXT) Recent Skin Changes Blood Disorders: Yes (anemia, leukopenia and thrombocytopenia) Family Medical History Reviewed Nursing Family Hx Patient reports no known family medical history. No Pertinent Family Hx Physical Exam Vital Signs Vital Signs - First Documented 06/16/18 16:13 Temp 97.6 Pulse 72 Resp 18 B/P (MAP) 100/86 (91) Pulse Ox 99 O2 Delivery Room Air Capillary Refill : Height, Weight, BMI Height: 5'2.00" Weight: 140lbs. 8.0oz. 63.703375sp; 25.2 BMI Method:Stated General Appearance: No Apparent Distress, WD/WN Eyes: Left Eye Other (left eyelid) HEENT: PERRL/EOMI, Pharynx Normal Neck: Non Tender, Supple Respiratory: Lungs Clear, Normal Breath Sounds Cardiovascular: Regular Rate, Rhythm, No Murmur Gastrointestinal: Normal Bowel Sounds, Non Tender, Soft Back: Normal Inspection, No CVA Tenderness, No Vertebral Tenderness Extremity: Normal Range of Motion, Non Tender Neurologic/Psychiatric: Alert, Oriented x3 Skin: Normal Color, Warm/Dry Progress/Results/Core Measures Suspected Sepsis SIRS Temperature: Pulse: Respiratory Rate: Laboratory Tests 06/16/18 16:45: White Blood Count 4.9 Blood Pressure / Mean: Laboratory Tests 06/16/18 16:45: Platelet Count 79L 06/16/18 17:23: Creatinine 0.70, Total Bilirubin 2.6H Results/Orders Lab Results Laboratory Tests Test 06/16/18 16:45 06/16/18 17:16 06/16/18 17:23 Range/Units White Blood Count 4.9 4.3-11.0 10^3/uL Red Blood Count 4.04 L 4.35-5.85 10^6/uL Hemoglobin 12.3 11.5-16.0 G/DL Hematocrit 37 35-52 % Mean Corpuscular Volume 91 80-99 FL Mean Corpuscular Hemoglobin 30 25-34 PG Mean Corpuscular Hemoglobin Concent 33 32-36 G/DL Red Cell Distribution Width 16.3 H 10.0-14.5 % Platelet Count 79 L 130-400 10^3/uL Mean Platelet Volume 11.4 H 7.4-10.4 FL Neutrophils (%) (Auto) 51 42-75 % Lymphocytes (%) (Auto) 38 12-44 % Monocytes (%) (Auto) 11 0-12 % Eosinophils (%) (Auto) 1 0-10 % Basophils (%) (Auto) 0 0-10 % Neutrophils # (Auto) 2.5 1.8-7.8 X 10^3 Lymphocytes # (Auto) 1.8 1.0-4.0 X 10^3 Monocytes # (Auto) 0.5 0.0-1.0 X 10^3 Eosinophils # (Auto) 0.0 0.0-0.3 10^3/uL Basophils # (Auto) 0.0 0.0-0.1 10^3/uL Urine Color YELLOW Urine Clarity CLEAR Urine pH 6 5-9 Urine Specific [place] 1.025 H 1.016-1.022 Urine Protein 1+ H NEGATIVE Urine Glucose (UA) NEGATIVE NEGATIVE Urine Ketones 1+ H NEGATIVE Urine Nitrite NEGATIVE NEGATIVE Urine Bilirubin NEGATIVE NEGATIVE Urine Urobilinogen 8 H NORMAL MG/DL Urine Leukocyte Esterase 1+ H NEGATIVE Urine RBC (Auto) 1+ H NEGATIVE Urine RBC 2-5 H /HPF Urine WBC 0-2 /HPF Urine Squamous Epithelial Cells 25-50 H /HPF Urine Crystals NONE /LPF Urine Bacteria NONE /HPF Urine Casts NONE /LPF Urine Mucus SMALL H /LPF Urine Culture Indicated NO Sodium Level 139 135-145 MMOL/L Potassium Level 4.6 3.6-5.0 MMOL/L Chloride Level 101 98-107 MMOL/L Carbon Dioxide Level 25 21-32 MMOL/L Anion Gap 13 5-14 MMOL/L Blood Urea Nitrogen 25 H 7-18 MG/DL Creatinine 0.70 0.60-1.30 MG/DL Estimat Glomerular Filtration Rate > 60 BUN/Creatinine Ratio 36 Glucose Level 126 H 70-105 MG/DL Calcium Level 9.6 8.5-10.1 MG/DL Corrected Calcium 9.8 8.5-10.1 MG/DL Total Bilirubin 2.6 H 0.1-1.0 MG/DL Aspartate Amino Transf (AST/SGOT) 36 H 5-34 U/L Alanine Aminotransferase (ALT/SGPT) 15 0-55 U/L Alkaline Phosphatase 100 40-136 U/L C-Reactive Protein High Sensitivity 0.54 H 0.00-0.50 MG/DL Total Protein 5.6 L 6.4-8.2 GM/DL Albumin 3.8 3.2-4.5 GM/DL My Orders Orders - RIKY SERNA MD Cbc With Automated Diff (06/16/18 16:22) Comprehensive Metabolic Panel (06/16/18 16:22) Hs C Reactive Protein (06/16/18 16:22) Ua Culture If Indicated (06/16/18 16:22) Saline Lock/Iv-Start (06/16/18 16:22) Ns Iv 500 Ml (Sodium Chloride 0.9%) (06/16/18 16:22) Chest 1 View, Ap/Pa Only (06/16/18 16:49) Abdomen/Kub 1view (06/16/18 16:49) Medications Given in ED Current Medications Medications Dose Ordered Sig/Evelio Route Start Time Stop Time Status Last Admin Dose Admin Sodium Chloride 500 ml @ 0 mls/hr Q0M ONCE IV 06/16/18 16:22 06/16/18 16:23 DC 06/16/18 17:17 500 MLS/HR Vital Signs/I&O 06/16/18 16:13 Temp 97.6 Pulse 72 Resp 18 B/P (MAP) 100/86 (91) Pulse Ox 99 O2 Delivery Room Air Capillary Refill : Progress Note : Progress Note Seen and evaluated. Still confusing story but we will check a sick labs, chest x-ray and abdominal x-ray (change from acute abdominal series) and urine. Normal saline 500 mL bolus ordered. Monitor patient. 1820: Patient is very weak and unable to transfer out of bed without significant assistance. She lives at home alone. Unable to discharge home due to significant weakness and edema. I did discuss the case with Dr. Barron. She will except the patient for admission, observation status. I did discuss with the patient the need for custodial placement and she states that she is actually thinking about that. Dr. Barron will talk with her more about that. Patient agrees with admission. Diagnostic Imaging Diagonstic Imaging: Xray Plain Films/CT/US/NM/MRI: chest Comments VIA [facility], [facility]. [place], [place] NAME: DEV MALDONADO [facility] REC#: [id number] PT STATUS: REG ER : 1935 PHYSICIAN: RIKY SERNA MD ADMIT DATE: 06/16/18/ER Draft Date of Exam:06/16/18 CHEST 1 VIEW, AP/PA ONLY Indication: Right arm and abdominal pain Comparison studies: Chest from 06/01/2018. Findings: A frontal view of the chest is unchanged. Heart size is borderline enlarged. Some chronic interstitial disease is present. Postoperative changes are present in the spine. Degenerative changes are present in the shoulder. Impression: There are no acute findings. Dictated on workstation # [id number] Dict: 06/16/181705 Trans: 06/16/181708 [id number] Interpreted by: RONNY DUNLAP MD Electronically signed by: Diagonstic Imaging: Xray Plain Films/CT/US/NM/MRI: abdomen Comments NAME: DEV MALDONADO [facility] REC#: [id number] PT STATUS: REG ER : 1935 PHYSICIAN: RIKY SERNA MD ADMIT DATE: 06/16/18/ER Signed Date of Exam: 06/16/18 ABDOMEN/KUB 1VIEW INDICATION: Abdominal pain. TIME OF EXAM: 05:18 p.m. FINDINGS: The bowel gas pattern is nonobstructive. There is moderate stool in the left colon. No pathologic calcifications are seen. Extensive spinal instrumentation throughout the lumbar spine from posterior instrumented fusion is seen. IMPRESSION: No acute abnormality is detected. Dictated by: Dictated on workstation # [id number] Dict: 06/16/181706 Trans: 06/16/181725 Interpreted by: CARLITOS BABIN MD Electronically signed by: CARLITOS BABIN MD 06/16/181725 Departure Communication (Admissions) Time/Spoke to Admitting Phy: 18:20 Impression Primary Impression: Weakness generalized Additional Impressions: Physical debility Bilateral lower extremity edema Disposition: ADMITTED INPATIENT Condition: Stable Admissions Decision to Admit Reason: Admit from ER (General) Decision to Admit/Date: Jun 16, 2018 Time/Decision to Admit Time: 18:20 Departure-Patient Inst. Referrals: CHRISTOPHER BARRON MD (PCP/Family) Primary Care Physician RIKY SERNA MD Jun 16, 2018 16:48
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
[2018-06-16 16:56] LABS: BASOPHILS % (AUTO) 0 % (0-10); EOSINOPHILS % (AUTO) 1 % (0-10); HEMATOCRIT 37 % (35-52); HEMOGLOBIN 12.3 G/DL (11.5-16.0); LYMPHOCYTES # (AUTO) 1.8 X 10^3 (1.0-4.0); LYMPHOCYTES % (AUTO) 38 % (12-44); MEAN CORPUSCULAR HEMOGLOBIN 30 PG (25-34); MEAN CORPUSCULAR HGB CONC 33 G/DL (32-36); MEAN CORPUSCULAR VOLUME 91 FL (80-99); MEAN PLATELET VOLUME 11.4 FL (7.4-10.4); MONOCYTES # (AUTO) 0.5 X 10^3 (0.0-1.0); MONOCYTES % (AUTO) 11 % (0-12); NEUTROPHILS # (AUTO) 2.5 X 10^3 (1.8-7.8); NEUTROPHILS % (AUTO) 51 % (42-75); PLATELET COUNT 79 10^3/uL (130-400); RED BLOOD COUNT 4.04 10^6/uL (4.35-5.85); RED CELL DISTRIBUTION WIDTH 16.3 % (10.0-14.5); WHITE BLOOD COUNT 4.9 10^3/uL (4.3-11.0)
--- NOTE | 2018-06-16 17:09 | Diagnostic Imaging Report ---
Indication: Right arm and abdominal pain Comparison studies: Chest from 06/01/2018. Findings: A frontal view of the chest is unchanged. Heart size is borderline enlarged. Some chronic interstitial disease is present. Postoperative changes are present in the spine. Degenerative changes are present in the shoulder. Impression: There are no acute findings. Dictated by: Dictated on workstation # [id number]
--- NOTE | 2018-06-16 17:24 | Diagnostic Imaging Report ---
INDICATION: Abdominal pain. TIME OF EXAM: 05:18 p.m. FINDINGS: The bowel gas pattern is nonobstructive. There is moderate stool in the left colon. No pathologic calcifications are seen. Extensive spinal instrumentation throughout the lumbar spine from posterior instrumented fusion is seen. IMPRESSION: No acute abnormality is detected. Dictated by: Dictated on workstation # [id number]
[2018-06-16 17:35] LABS: BILIRUBIN,URINE NEGATIVE (NEGATIVE); CLARITY,URINE CLEAR; COLOR,URINE YELLOW; GLUCOSE, URINE (UA) NEGATIVE (NEGATIVE); KETONES,URINE 1+ (NEGATIVE); LEUKOCYTE ESTERASE ,URINE 1+ (NEGATIVE); NITRITE,URINE NEGATIVE (NEGATIVE); PH,URINE 6 (5-9); PROTEIN,URINE 1+ (NEGATIVE); UROBILINOGEN,URINE 8 MG/DL (NORMAL)
[2018-06-16 17:42] LABS: SQUAMOUS EPITHELIAL CELL,UR 25-50 /HPF; WBC,URINE 0-2 /HPF
[2018-06-16 17:59] LABS: ALANINE AMINOTRANSFERASE 15 U/L (0-55); ALBUMIN 3.8 GM/DL (3.2-4.5); ALKALINE PHOSPHATASE 100 U/L (40-136); BILIRUBIN,TOTAL 2.6 MG/DL (0.1-1.0); BUN/CREATININE RATIO 36; CALCIUM 9.6 MG/DL (8.5-10.1); CARBON DIOXIDE 25 MMOL/L (21-32); CHLORIDE 101 MMOL/L (98-107); GFR ESTIMATED > 60; GLUCOSE 126 MG/DL (70-105); POTASSIUM 4.6 MMOL/L (3.6-5.0); SODIUM 139 MMOL/L (135-145); TOTAL PROTEIN 5.6 GM/DL (6.4-8.2)
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
[2018-06-16 19:35] VITALS: BP 112/58
--- NOTE | 2018-06-16 19:42 | History & Physicial ---
History of Present Illness History of Present Illness Reason for visit/HPI PT IS AN 82 Y/O FEMALE WHO IS WELL KNOWN TO ME FROM CLINIC. SHE PRESENTED TO THE EMERGENCY DEPARTMENT TODAY WITH COMPLAINT OF WEAKNESS AND FALLING INTERMITTENTLY AT HOME. SHE REPORTS THAT SHE HAS BEEN PROGRESSIVELY WEAKENING AT HOME, SITTING IN HER LIFT CHAIR, AMBULATING VERY LITTLE AT HOME. Date of Admission Jun 16, 2018 at 18:20 Date Seen by a Provider: Jun 16, 2018 Time Seen by a Provider: 19:40 I consulted on this patient on 06/16/18 19:42 Attending Physician Christopher Barron MD Admitting Physician Christopher Barron MD Consult Allergies and Home Medications Allergies Coded Allergies: Sulfa (Sulfonamide Antibiotics) (Verified Allergy, Unknown, 02/23/18) Home Medications Azithromycin 250 Mg Tablet, 250 MG PO DAILY Prescribed by: CHRISTOPHER BARRON on 02/26/18 0842 Cefdinir 300 Mg Capsule, 300 MG PO BID Prescribed by: RINA LEONARDO on 05/15/18 1559 Cephalexin 500 Mg Capsule, 500 MG PO QID Prescribed by: CHRISTOPHER BARRON on 02/26/18 0842 Cholecalciferol (Vitamin D3) 2,000 Unit Capsule, 2,000 UNIT PO HS, (Reported) Cyclosporine 1 Each Droperette, 1 DROP OU BID, (Reported) Docusate Sodium 100 Mg Capsule, 100 MG PO HS, (Reported) Lactobacillus Acidophilus 1 Each Capsule, 1 EACH PO BID Prescribed by: CHRISTOPHER BARRON on 02/26/18 0842 Levothyroxine Sodium 100 Mcg Tablet, 100 MCG PO DAILY, (Reported) TAKES ALONG WITH 88MCG TABLET Levothyroxine Sodium 88 Mcg Tablet, 88 MCG PO DAILY, (Reported) TAKES ALONG WITH 100MCG TABLET Nadolol 20 Mg Tablet, 10 MG PO DAILY, (Reported) TAKES 1/2 (20MG) TABLET Spironolactone 50 Mg Tablet, 50 MG PO DAILY, (Reported) Vit A/C/E/Zinc/Co 1 Cap Capsule, 1 CAP PO BID, (Reported) [Oxycodone Hcl] 5 MG TAB, 5 MG PO QID Prescribed by: CHRISTOPHER BARRON on 02/26/18 0842 Patient Home Medication List Home Medication List Reviewed: Yes Past Thukljn-Htjfpw-Olmyvt Hx Patient Social History Marrital Status: single Number of Children: 0 Number of living children: 0 Living Status: LIVES AT HOME ALONE 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[employer]) Alcohol Use: Denies Use Recreational Drug Use: No Smoking Status: Former Smoker Former Smoker, Quit: Jun 03, 1990 Type Used: Cigarettes 2nd Hand Smoke Exposure: No Physical Abuse Screen: No Sexual Abuse: No Recent Foreign Travel: No Contact w/other who traveled: No Recent Hopitalizations: No Recent Infectious Disease Expo: No Immunizations Up To Date Tetanus Booster (TDap): Unknown Date of Pneumonia Vaccine: Jul 11, 2014 Date of Influenza Vaccine: Apr 08, 2017 Seasonal Allergies Seasonal Allergies: No Surgeries Yes (RIGHT RCR, MULTI SKIN LESIONS REMOVED, LOWER BACK FUSION, LEFT MASTECTOMY, ) Respiratory Yes (CPAP) Cardiovascular Yes High Cholesterol Neurological No Reproductive System Hx Reproductive Disorders: No Sexually Transmitted Disease: No Genitourinary No Gastrointestinal Yes (polyp removed from colon) Liver Disease/Jaundice, Cirrhosis Musculoskeletal Yes (arthritis) Arthritis Endocrine History of Endocrine Disorders: Yes Endocrine Disorders: Hypothyroidsim HEENT History of HEENT Disorders: No (PRIOR CATARACT SURGERY) HEENT Disorders: Cataract Cancer Yes (LYMPHADEMA) Breast Psychosocial History of Psychiatric Problem: Yes Behavioral Health Disorders: Depression Integumentary History of Skin or Integumenta: Yes (SKIN CANCER REMOVAL AREAS, LYMPHEDEMA LOWER EXT) Skin/Integumentary Disorders: Recent Skin Changes Blood Transfusions History of Blood Disorders: Yes (anemia, leukopenia and thrombocytopenia) Reviewed Nursing Assessment Reviewed/Agree w Nursing PMH: Yes Family Medical History Significant Family History: Heart Disease Family Hx: Patient reports no known family medical history. Review of Systems Constitutional: No fever; malaise, weakness EENTM: No hoarseness, No throat pain Respiratory: No cough, No dyspnea on exertion, No short of breath Cardiovascular: No chest pain; edema; No palpitations Gastrointestinal: No constipation, No diarrhea, No loss of appetite Genitourinary: frequency, incontinence Musculoskeletal: No back pain; muscle weakness Skin: no symptoms reported, other (INTERMITTENT VESSICLES ON LEGS FROM EDEMA) Psychiatric/Neurological: Denies Anxiety, Denies Depressed; Weakness All Other Systems Reviewed Negative Unless Noted: Yes Physical Exam Vital Signs Vital Signs - First Documented 06/16/18 16:13 Temp 97.6 Pulse 72 Resp 18 B/P (MAP) 100/86 (91) Pulse Ox 99 O2 Delivery Room Air Capillary Refill : Less Than 3 Seconds Height, Weight, BMI Height: 5'2.00" Weight: 119lbs. 8.0oz. [id number]; 25.2 BMI Method:Stated General Appearance: No Apparent Distress, WD/WN HEENT: PERRL/EOMI, Pharynx Normal Neck: Full Range of Motion, Supple Respiratory: Chest Non Tender, Lungs Clear, Normal Breath Sounds, No Accessory Muscle Use Cardiovascular: Regular Rate, Rhythm, Normal Peripheral Pulses, Systolic Murmur Gastrointestinal: Normal Bowel Sounds, No Organomegaly, No Pulsatile Mass, Non Tender, Soft Rectal: Deferred Extremity: Pedal Edema Neurologic/Psychiatric: Alert, Oriented x3, No Motor/Sensory Deficits, Normal Mood/Affect Assessment/Plan Assessment and Plan EDEMA CHRONIC PAIN SYNDROME FALLING AT HOME GENERALIZED WEAKNESS HYPOTHYROID HYPERTENSION EDEMA - COMPRESSION ON LOWER LEGS - ELEVATE LEGS IN BED CHRONIC PAIN SYNDROME - RESUME HOME MEDICATION - OXYCODONE SCHEDULED FALLING AT HOME WITH GENERALIZED WEAKNESS - RECOMMENDED ADMISSION TO [facility] FOR PERMANENT RESIDENCE PT IS TOO WEAK TO CARE FOR HERSELF AT HOME. SHE IS AGAIN DEBATING THIS STATING THAT SHE WANTS TO GO FOR A SHORT STAY AND SHE WILL HAVE TO SET SOMETHING UP IN HER HOME FOR SOMEONE TO LIVE WITH HER AND PROVIDE CARE IN HER HOME. HYPOTHYROID - RESUME HOME MEDICATIONS HYPERTENSION - RESUME HOME MEDICATIONS ONCE VERIFIED. Admission Diagnosis EDEMA CHRONIC PAIN SYNDROME FALLING AT HOME GENERALIZED WEAKNESS HYPOTHYROID HYPERTENSION Admission Status: Observation CHRISTOPHER BARRON MD Jun 16, 2018 19:42
[2018-06-17] VITALS: BP 88/50
[2018-06-17 04:00] VITALS: BP 104/59
[2018-06-17 06:40] LABS: HEMOGLOBIN 10.4 G/DL (11.5-16.0); MEAN PLATELET VOLUME 10.1 FL (7.4-10.4); RED BLOOD COUNT 3.45 10^6/uL (4.35-5.85); RED CELL DISTRIBUTION WIDTH 16.3 % (10.0-14.5); WHITE BLOOD COUNT 2.9 10^3/uL (4.3-11.0)
[2018-06-17 07:00] LABS: ALANINE AMINOTRANSFERASE 14 U/L (0-55); ALBUMIN 3.1 GM/DL (3.2-4.5); ALKALINE PHOSPHATASE 87 U/L (40-136); BILIRUBIN,TOTAL 2.1 MG/DL (0.1-1.0); BUN/CREATININE RATIO 34; CALCIUM 8.9 MG/DL (8.5-10.1); CARBON DIOXIDE 28 MMOL/L (21-32); CHLORIDE 104 MMOL/L (98-107); GFR ESTIMATED > 60; GLUCOSE 130 MG/DL (70-105); POTASSIUM 4.1 MMOL/L (3.6-5.0); SODIUM 138 MMOL/L (135-145); TOTAL PROTEIN 4.5 GM/DL (6.4-8.2)
[2018-06-17 08:12] VITALS: BP 96/56
[2018-06-17] MEDS ORDERED: FURO40TA4 PO (08:47)
[2018-06-17] MEDS ORDERED: OXYC-529 PO (08:47)
[2018-06-17] MEDS ORDERED: POTA10TA36 PO (08:47)
[2018-06-17] MEDS ORDERED: PRAM0.257 PO (08:47)
--- NOTE | 2018-06-17 09:30 | Discharge Inst-Skilled Nursing ---
Discharge Inst-Skilled NF Patient Instructions Patient Problems: EDEMA CHRONIC PAIN SYNDROME FALLING AT HOME GENERALIZED WEAKNESS HYPOTHYROID HYPERTENSION Consult/Follow Up/Orders Follow Up Appt.: 06/22/18 - previously scheduled appt with Beatrice BALLARD Admit to: Via [facility] Certification (SNF) I certify that SNF services are required to be given on an inpatient basis because of the above named patient's need for care home care on a continuing basis for the conditions(s) for which he/she was receiving inpatient hospital services prior to his/her transfer to the SNF. Shelter Facility Order: Nursing Services, [employer]-Evaluate & Treat, Physical Therapy-Evaluate & Treat Discharge Diet: Regular Diet Daily Activity as Tolerated: Yes New & Resume Previous Orders Christopher Barron Jun 17, 2018 09:27 CHRISTOPHER BARRON MD Jun 17, 2018 09:30
--- NOTE | 2018-06-17 09:34 | Discharge Summary ---
Diagnosis/Chief Complaint Date of Admission Jun 16, 2018 at 18:20 Date of Discharge Discharge Date: Jun 17, 2018 Discharge Time: 12:00 Admission Diagnosis Admission Diagnosis EDEMA CHRONIC PAIN SYNDROME FALLING AT HOME GENERALIZED WEAKNESS HYPOTHYROID HYPERTENSION Discharge Diagnosis EDEMA CHRONIC PAIN SYNDROME FALLING AT HOME GENERALIZED WEAKNESS HYPOTHYROID HYPERTENSION Reason Hospital Visit PT IS AN 82 Y/O FEMALE WHO IS WELL KNOWN TO ME FROM CLINIC. SHE PRESENTED TO THE EMERGENCY DEPARTMENT TODAY WITH COMPLAINT OF WEAKNESS AND FALLING INTERMITTENTLY AT HOME. SHE REPORTS THAT SHE HAS BEEN PROGRESSIVELY WEAKENING AT HOME, SITTING IN HER LIFT CHAIR, AMBULATING VERY LITTLE AT HOME. Discharge Summary Discharge Physical Examination Allergies: Coded Allergies: Sulfa (Sulfonamide Antibiotics) (Verified Allergy, Unknown, 02/23/18) Vitals & I&Os Vital Signs Date Time Temp Pulse Resp B/P (MAP) Pulse Ox O2 Delivery O2 Flow Rate FiO2 06/17/18 08:12 97.1 75 18 96/56 (69) 97 Room Air General Appearance: Alert, Oriented X3, Cooperative, No Acute Distress HEENT: Atraumatic, Other (mm dry, pink) Respiratory: Clear to Auscultation, Normal Air Movement Cardiovascular: Regular Rate, Other (ii/vi abhishek) Abdominal: Normal Bowel Sounds, Soft, No Tenderness Extremities: No Clubbing, Other (pitting edema bilateral lower extremities) Skin: Other Neuro: Cranial Nerves 3-12 NL Psych/Mental Status: Mental Status NL, Mood NL Hospital Course EDEMA CHRONIC PAIN SYNDROME FALLING AT HOME GENERALIZED WEAKNESS HYPOTHYROID HYPERTENSION EDEMA - COMPRESSION ON LOWER LEGS - ELEVATE LEGS IN BED AND WHILE SEATED. CHRONIC PAIN SYNDROME - RESUME HOME MEDICATION - OXYCODONE SCHEDULED. FALLING AT HOME WITH GENERALIZED WEAKNESS - RECOMMENDED ADMISSION TO [facility] FOR PERMANENT RESIDENCE PT IS TOO WEAK TO CARE FOR HERSELF AT HOME. SHE IS AGAIN DEBATING THIS STATING THAT SHE WANTS TO GO FOR A SHORT STAY AND SHE WILL HAVE TO SET SOMETHING UP IN HER HOME FOR SOMEONE TO LIVE WITH HER AND PROVIDE CARE IN HER HOME. HYPOTHYROID - RESUME HOME MEDICATIONS. HYPERTENSION - RESUME HOME MEDICATIONS. DISCHARGE TO [facility] TODAY Pending Labs Laboratory Tests 06/17/18 06:00: White Blood Count 2.9, Red Blood Count 3.45, Hemoglobin 10.4, Hematocrit 32, Mean Corpuscular Volume 91, Mean Corpuscular Hemoglobin 30, Mean Corpuscular Hemoglobin Concent 33, Red Cell Distribution Width 16.3, Platelet Count 61, Mean Platelet Volume 10.1, Sodium Level 138, Potassium Level 4.1, Chloride Level 104, Carbon Dioxide Level 28, Anion Gap 6, Blood Urea Nitrogen 24, Creatinine 0.70, Estimat Glomerular Filtration Rate > 60, BUN/Creatinine Ratio 34, Glucose Level 130, Calcium Level 8.9, Corrected Calcium 9.6, Total Bilirubin 2.1, Aspartate Amino Transf (AST/SGOT) 34, Alanine Aminotransferase ( ALT/SGPT) 14, Alkaline Phosphatase 87, Total Protein 4.5, Albumin 3.1 Discharge Condition at discharge improving Instructions to patient/family Please see electronic discharge instructions given to patient. Discharge Medications Reviewed and agree with Discharge Medication list on patient's Discharge Instruction sheet Clinical Quality Measures DVT/VTE Risk/Contraindication: Risk Factor Score Per Nursin RFS Level Per Nursing on Admit: 4+=Very High Contraindications-Pharm: Other *list below* Other: HX OF ANEMIA AND GI BLEED CHRISTOPHER WALKER MD Jun 17, 2018 09:34
[2018-06-17 12:00] VITALS: BP 96/55
[2018-06-17 16:00] VITALS: BP 98/55
[2018-06-17 20:00] VITALS: BP 119/61
[2018-06-18] VITALS: BP 128/64
[2018-06-18 04:30] VITALS: BP 115/53
[2018-06-18 08:06] VITALS: BP 160/60
[2018-06-18 12:00] VITALS: BP 115/58
== END 2018-06-18 16:00 ==
LOC: EDUNIT# 16:13 → ER 16:14 → UNDOADMOB 18:20 → 4TH 18:20 → EDPENDDISTM 06-17 12:30 → 4TH 06-18 13:42
PROVIDERS: ADMIT Family Medicine; ATTEND Family Medicine
DX: R60.0 Localized edema (principal); G89.4 Chronic pain syndrome; Z91.81 History of falling; R53.1 Weakness; E03.9 Hypothyroidism, unspecified; I10 Essential (primary) hypertension; Z86.2 Personal history of diseases of the blood and blood-forming organs and certain disorders involving the immune mechanism; Z87.891 Personal history of nicotine dependence; E78.00 Pure hypercholesterolemia, unspecified; K74.60 Unspecified cirrhosis of liver; Z86.010 Personal history of colon polyps; F32.9 Major depressive disorder, single episode, unspecified; Z85.3 Personal history of malignant neoplasm of breast; G47.30 Sleep apnea, unspecified; Z85.828 Personal history of other malignant neoplasm of skin
CPT/HCPCS: 36415; 51701; 71045; 74018; 80053; 81000; 85025; 85027; 86141; 96360; G0378

== ENCOUNTER → 2018-07-02 | Outpatient (CLI) | payer MEDICARE ==
[~2018-07-02] MED LIST changes: +FURO40TA4 PO; +OXYC-529 PO; +POTA10TA36 PO; +PRAM0.257 PO
== END ==
LOC: WOUNDCARE 12:47
PROVIDERS: ATTEND Orthopaedic Surgery Hand Surgery
DX: L97.212 Non-pressure chronic ulcer of right calf with fat layer exposed (principal); I87.333 Chronic venous hypertension (idiopathic) with ulcer and inflammation of bilateral lower extremity; I89.0 Lymphedema, not elsewhere classified
CPT/HCPCS: 99213

== ENCOUNTER → 2018-07-09 | Outpatient (CLI) | payer MEDICARE | LOC: WOUNDCARE 12:39 | PROVIDERS: ATTEND Orthopaedic Surgery Hand Surgery | DX: L97.211 Non-pressure chronic ulcer of right calf limited to breakdown of skin (principal); I87.333 Chronic venous hypertension (idiopathic) with ulcer and inflammation of bilateral lower extremity; I89.0 Lymphedema, not elsewhere classified; L97.222 Non-pressure chronic ulcer of left calf with fat layer exposed | CPT/HCPCS: 99213 ==

== ENCOUNTER → 2018-07-16 | Outpatient (CLI) | payer MEDICARE | LOC: WOUNDCARE 12:26 | PROVIDERS: ATTEND Orthopaedic Surgery Hand Surgery | DX: I87.333 Chronic venous hypertension (idiopathic) with ulcer and inflammation of bilateral lower extremity (principal); I89.0 Lymphedema, not elsewhere classified | CPT/HCPCS: 99212 ==

== ENCOUNTER 2018-07-22 13:29 | Outpatient (RCR) | payer MEDICARE ==
[2018-07-22 13:55] LABS: BASOPHILS % (AUTO) 0 % (0-10); EOSINOPHILS # (AUTO) 0.1 10^3/uL (0.0-0.3); EOSINOPHILS % (AUTO) 2 % (0-10); HEMATOCRIT 37 % (35-52); HEMOGLOBIN 12.2 G/DL (11.5-16.0); LYMPHOCYTES % (AUTO) 30 % (12-44); MEAN CORPUSCULAR HEMOGLOBIN 31 PG (25-34); MEAN CORPUSCULAR HGB CONC 33 G/DL (32-36); MEAN CORPUSCULAR VOLUME 92 FL (80-99); MEAN PLATELET VOLUME 10.3 FL (7.4-10.4); MONOCYTES # (AUTO) 0.4 X 10^3 (0.0-1.0); MONOCYTES % (AUTO) 12 % (0-12); NEUTROPHILS # (AUTO) 1.9 X 10^3 (1.8-7.8); NEUTROPHILS % (AUTO) 56 % (42-75); PLATELET COUNT 67 10^3/uL (130-400); RED CELL DISTRIBUTION WIDTH 18.1 % (10.0-14.5); WHITE BLOOD COUNT 3.5 10^3/uL (4.3-11.0)
[2018-07-22 14:13] LABS: ALANINE AMINOTRANSFERASE 26 U/L (0-55); ALBUMIN 3.1 GM/DL (3.2-4.5); ALKALINE PHOSPHATASE 159 U/L (40-136); BILIRUBIN,TOTAL 2.1 MG/DL (0.1-1.0); BUN/CREATININE RATIO 23; CALCIUM 8.6 MG/DL (8.5-10.1); CARBON DIOXIDE 29 MMOL/L (21-32); CHLORIDE 100 MMOL/L (98-107); CREATININE SERUM 0.66 MG/DL (0.60-1.30); GFR ESTIMATED > 60; GLUCOSE 136 MG/DL (70-105); POTASSIUM 4.1 MMOL/L (3.6-5.0); SODIUM 135 MMOL/L (135-145); TOTAL PROTEIN 4.9 GM/DL (6.4-8.2)
== END 2018-10-20 | disposition home or self-care (01) ==
LOC: ONC 13:29
PROVIDERS: ATTEND Internal Medicine Hematology & Oncology
DX: Z08 Encounter for follow-up examination after completed treatment for malignant neoplasm (principal); Z85.3 Personal history of malignant neoplasm of breast; G43.909 Migraine, unspecified, not intractable, without status migrainosus; E03.9 Hypothyroidism, unspecified; F32.9 Major depressive disorder, single episode, unspecified; D69.6 Thrombocytopenia, unspecified; E66.9 Obesity, unspecified; G47.30 Sleep apnea, unspecified; Z85.828 Personal history of other malignant neoplasm of skin; K74.60 Unspecified cirrhosis of liver; K76.6 Portal hypertension; Z79.899 Other long term (current) drug therapy
CPT/HCPCS: 36415; 80053; 85025; 99213

== ENCOUNTER → 2018-07-24 | Outpatient (CLI) | payer MEDICARE ==
[~2018-07-24] VITALS: Ht 157.5 cm; Wt 55.2 kg
[2018-07-24] MEDS: LIDOCAINE 1% INJ 20 ML 20 ML VIAL INJ ONE (08:48)
--- NOTE | 2018-07-24 11:08 | Diagnostic Imaging Report ---
Indication: Ascites. Patient presents for ultrasound-guided paracentesis. Patient was brought to the procedure room and placed on the table in the supine position. Ultrasound imaging over the abdomen was performed to evaluate appropriate entry site. The right lower quadrant was prepped and draped in usual sterile fashion. Small amount of 1% lidocaine was utilized for local anesthesia. A paracentesis catheter was advanced into the right lower quadrant peritoneal space. Total of 4 L of fluid was removed. Catheter was withdrawn and hemostasis was obtained using manual compression. Patient tolerated the procedure well and left the department in stable condition. Impression: Ultrasound-guided paracentesis obtaining 4 L of fluid. Dictated by: Dictated on workstation # [id number]
== END ==
LOC: RAD 08:21
PROVIDERS: ATTEND Family Medicine
DX: R18.8 Other ascites (principal)
CPT/HCPCS: 49083

== ENCOUNTER 2018-11-23 14:33 | Emergency (ER) | payer MEDICARE ==
[~2018-11-23] VITALS: Ht 157.5 cm; Wt 51.3 kg
[2018-11-23] MEDS ORDERED: LORATADINE (CLARITIN) 10 MG TAB PO ONE (15:00)
[2018-11-23] MEDS ORDERED: diphenhydrAMINE 25 MG TAB (BENADRYL) PO ONE (15:00)
--- OUTSIDE RECORDS SUMMARY | 2018-11-23 15:05 | XMS REPORT | CCD ---
Author Author [facility] Organization [facility] Address [address] [place] [address] Phone Care Team Providers Care [employer] Attorney Name Role Phone PP Unavailable CCM Unavailable Summary Purpose Interface Exchange Insurance Providers Payer name Policy type / Coverage type Covered libertarian ID Effective Begin Date Effective End Date WPS Medicare Part B Medicare Part B [id number] Unknown Unknown [facility] Medicare Part B [id number] Unknown Unknown Family history Brother Diagnosis Age At Onset Diabetes Unknown Skin cancer Unknown Father Diagnosis Age At Onset Heart disease Unknown Mother Diagnosis Age At Onset advanced age Unknown Hypothyroid Unknown Social History Social History Element Codes Description Effective Dates Living arrangements Unknown [facility]itent[facility] 09/23/2018 Marital status Unknown Single 12/05/2014 Number of children Unknown 0 12/05/2014 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[address]: 3544336 Quit 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 quit 20-25 years ago 12/05/2014 Alcohol history Unknown occasionally drinks alcohol 12/05/2014 Allergies, Adverse Reactions, Alerts Substance Reaction Codes Entered Date Inactivated Date Status * NO KNOWN FOOD ALLERGIES Unknown 12/05/2014 No Inactive Date Active SULFA (SULFONAMIDES) nausea Unknown 09/04/2017 No Inactive Date Active Past Medical History Illness Codes Condition Status Onset Date Resolved Date Laceration without foreign body, right foot, initial encounter ICD-9: 892.0 ICD-10: S91.311A Active 11/04/2018 Unknown Essential (primary) hypertension ICD-9: 401.1 ICD-10: I10 Active 02/07/2016 Unknown Low back pain ICD-9: 724.2 ICD-10: M54.5 Active 11/15/2015 Unknown Other ascites ICD-9: 789.59 ICD-10: R18.8 Active 07/23/2018 Unknown Other mucopurulent conjunctivitis, bilateral ICD-9: 372.03 ICD-10: H10.023 Active 10/21/2018 Unknown 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 ICD-10: K74.4 Active 10/21/2018 Unknown Atrophy of thyroid (acquired) ICD-9: 244.8 ICD-10: E03.4 Active 12/18/2016 Unknown Localized edema ICD-9 : 782.3 ICD-10: R60.0 Active 02/26/2016 Unknown Lymphedema, not elsewhere classified ICD-9: 457.1 ICD-10: I89.0 Active 02/19/2016 Unknown Encounter for immunization ICD-9: V04.81 ICD-10: Z23 Active 04/16/2017 Unknown Other chronic pain ICD -9: 338.29 ICD-10: G89.29 Active 08/26/2016 Unknown 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 Active 04/23/2018 Unknown Pain in left knee ICD- 9: 719.46 ICD-10: M25.562 Active 08/26/2016 Unknown Obstructive sleep apnea (adult) (pediatric) ICD-9: 327.23 ICD-10: G47.33 Active 03/09/2018 Unknown Unsteadiness on feet ICD-9: 781.2 ICD-10: R26.81 Active 03/18/2018 Unknown Pressure ulcer of left buttock, stage 1 ICD-9: 707.05 ICD-10: L89.321 Active 03/09/2018 Unknown Acute bronchitis, unspecified ICD-9: 466.0 ICD-10: J20.9 Active 11/15/2015 Unknown Cough ICD-9: 786.2 ICD-10: R05 Active 11/15/2015 Unknown Other specified noninfective disorders of lymphatic vessels and lymph nodes ICD-9: 289.89 ICD-10: I89.8 Active 12/04/2017 Unknown Candidiasis of skin and nail ICD-9: 112.3 ICD-10: B37.2 Active 11/13/2017 Unknown Cellulitis of left lower limb ICD-9: 682.6 ICD-10: L03.116 Active 02/10/2017 Unknown Cellulitis of right lower limb ICD-9: 682.6 ICD-10: L03.115 Active 02/10/2017 Unknown Stiffness of left hand, not elsewhere classified ICD-9: 719.54 ICD-10: M25.642 Active 09/04/2017 Unknown Stiffness of right hand, not elsewhere classified ICD-9: 719.54 ICD-10: M25.641 Active 09/04/2017 Unknown Other skin changes ICD -9: 709.8 ICD-10: R23.8 Active 08/08/2017 Unknown Other viral warts ICD- 9: 078.19 ICD-10: B07.8 Active 08/08/2017 Unknown Sick sinus syndrome ICD-9: 427.81 ICD-10: [...] Problems Condition Codes Effective Dates Condition Status Laceration without foreign body, right foot, initial encounter ICD-9: 892.0 ICD-10: S91.311A 11/04/2018 Active Essential (primary) hypertension ICD-9: 401.1 ICD-10: I10 02/07/2016 Active Low back pain ICD-9: 724.2 ICD-10: M54.5 11/15/2015 Active Other ascites ICD-9: 789.59 ICD-10: R18.8 07/23/2018 Active Other mucopurulent conjunctivitis, bilateral ICD-9: 372.03 ICD-10: H10.023 10/21/2018 Active 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 ICD-10: K74.4 10/21/2018 Active Atrophy of thyroid (acquired) ICD-9: 244.8 ICD-10: E03.4 12/18/2016 Active Localized edema ICD-9 : 782.3 ICD-10: R60.0 02/26/2016 Active Lymphedema, not elsewhere classified ICD-9: 457.1 ICD-10: I89.0 02/19/2016 Active Encounter for immunization ICD-9: V04.81 ICD-10: Z23 04/16/2017 Active Other chronic pain ICD -9: 338.29 ICD-10: G89.29 08/26/2016 Active 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 04/23/2018 Active Pain in left knee ICD- 9: 719.46 ICD-10: M25.562 08/26/2016 Active Obstructive sleep apnea (adult) (pediatric) ICD-9: 327.23 ICD-10: G47.33 03/09/2018 Active Unsteadiness on feet ICD-9: 781.2 ICD-10: R26.81 03/18/2018 Active Pressure ulcer of left buttock, stage 1 ICD-9: 707.05 ICD-10: L89.321 03/09/2018 Active Acute bronchitis, unspecified ICD-9: 466.0 ICD-10: J20.9 11/15/2015 Active Cough ICD-9: 786.2 ICD-10: R05 11/15/2015 Active Other specified noninfective disorders of lymphatic vessels and lymph nodes ICD-9: 289.89 ICD-10: I89.8 12/04/2017 Active Candidiasis of skin and nail ICD-9: 112.3 ICD-10: B37.2 11/13/2017 Active Cellulitis of left lower limb ICD-9: 682.6 ICD-10: L03.116 02/10/2017 Active Cellulitis of right lower limb ICD-9: 682.6 ICD-10: L03.115 02/10/2017 Active Stiffness of left hand, not elsewhere classified ICD-9: 719.54 ICD-10: M25.642 09/04/2017 Active Stiffness of right hand, not elsewhere classified ICD-9: 719.54 ICD-10: M25.641 09/04/2017 Active Other skin changes ICD -9: 709.8 ICD-10: R23.8 08/08/2017 Active Other viral warts ICD- 9: 078.19 ICD-10: B07.8 08/08/2017 Active Sick sinus syndrome ICD-9: 427.81 ICD-10: [...] Start Date Stop Date Status Fill Instructions gentamicin 0.3 % eye drops RxNorm: 210462 2 Drop(s) ophthalmic (eye) QID 11/09/2018 11/18/2018 Active oxycodone 5 mg tablet RxNorm: 9416255 1 Tablet(s) PO BID and 1 at noon if needed for uncontrolled pain 10/21/20182018 Active gentamicin 0.3 % eye drops RxNorm: 700497 2 Drop(s) ophthalmic (eye) QID 10/21/2018 10/30/2018 Inactive oxycodone 5 mg tablet RxNorm: 3712034 1.5 Tablet(s) PO BID 10/0510/20/2018 Inactive oxycodone 5 mg tablet RxNorm: 1993267 2 Tablet(s) PO BID 201810/04/2018 Inactive oxycodone 5 mg tablet RxNorm: 0923170 2 Tablet(s) PO BID 201809/27/2018 Inactive oxycodone 5 mg tablet RxNorm: 5617057 2 Tablet(s) PO BID 201708/29/2018 Inactive Lasix 40 mg tablet RxNorm: 251454 1 Tablet(s) PO daily as needed edema if more than 3 pounds weight gain in 48 hours 07/23/2018 11/19/2018 Active oxycodone 5 mg tablet RxNorm: 9107965 2 Tablet(s) PO BID 201707/30/2018 Inactive nadolol 20 mg tablet RxNorm: 274900 1/2 Tablet(s) PO daily No Stop Date Active oxycodone 5 mg tablet RxNorm: 7807416 2 Tablet(s) PO BID 201707/15/2018 Inactive nadolol 20 mg tablet RxNorm: 497991 1 Tablet(s) TAKE 1 TABLET BY MOUTH EVERY DAY 05/25/2018 06/21/2018 Inactive Generic For:*CORGARD 20 MG TABLET 05/21/2018 10:10: 43 AM spironolactone 50 mg tablet RxNorm: 301791 TAKE 1 TABLET BY MOUTH EVERY DAY 05/21/2018 06/03/2018 Inactive Generic For:ALDACTONE 50MG 05/21/2018 10:10:31 AM pramipexole 0.25 mg tablet RxNorm: 014000 TAKE 1 TABLET BY MOUTH TWICE DAILY 05/21/2018 06/03/2018 Inactive Generic For:MIRAPEX 0.25MG TAB 05/21/2018 10:10:48 AM levothyroxine 88 mcg tablet RxNorm: 509878 TAKE 1 TABLET BY MOUTH EVERY DAY WITH A 100MCG TABLET 05/21/2018 06/03/2018 Inactive Generic For:*SYNTHROID 0.088MG TAB 05/21/2018 10:10:11 AM levothyroxine 100 mcg tablet RxNorm: 753239 TAKE 1 TABLET BY MOUTH EVERY DAY , TAKE WITH AN 88 MCG TABLET 05/21/2018 Inactive Generic For:*SYNTHROID 100 MCG TABLET 05/21/2018 10:10:04 AM Vitamin D3 2,000 unit capsule RxNorm: 603625 1 Capsule(s) PO daily 05/21/2018 No Stop Date Active nadolol 20 mg tablet RxNorm: 864077 TAKE 1/2 TABLET BY MOUTH EVERY DAY 05/21/2018 05/24/2018 Inactive Generic For:*CORGARD 20 MG TABLET 05/21/2018 10:10:43 AM Ocuvite tablet RxNorm : 1 Tablet(s) PO BID 05/21/2018 09/22/2018 Inactive oxycodone 5 mg tablet RxNorm: 1203220 1 Tablet(s) PO QID as needed 05/15/2018 06/13/2018 Inactive pramipexole 0.25 mg tablet RxNorm: 136235 1 Tablet(s) PO BID 05/20/2018 Inactive Requip 0.25 mg tablet RxNorm: 962389 1 Tablet(s) PO BID 201705/03/2018 Inactive potassium chloride ER 10 mEq tablet,extended release RxNorm: 120239 1 Tablet(s) PO daily as needed when taking lasix 04/23/2018 08/20/2018 Inactive Lasix 40 mg tablet RxNorm: 885442 1 Tablet(s) PO daily as needed edema if more than 3 pounds weight loss in 48 hours 04/23/2018 07/22/2018 Inactive potassium chloride ER 10 mEq tablet,extended release RxNorm: 809026 1 Tablet(s) PO daily as needed when taking lasix 04/01/2018 04/22/2018 Inactive Lasix 40 mg tablet RxNorm: 362150 1 Tablet(s) PO daily as needed edema 04/01/2018 04/22/2018 Inactive oxycodone 5 mg tablet RxNorm: 5159928 1 Tablet(s) PO QID as needed 03/18/2018 04/16/2018 Inactive levothyroxine 88 mcg tablet RxNorm: 551472 1 Tablet(s) PO daily . Take with 100 mcg tablet. 02/19/2018 05/20/2018 Inactive spironolactone 50 mg tablet RxNorm: 062627 Tablet(s) TAKE 1 TABLET BY MOUTH DAILY 02/19/2018 05/20/2018 Inactive levothyroxine 100 mcg tablet RxNorm: 969718 1 Tablet(s) PO daily . Take with 88 mcg tablet 02/19/2018 02/18/2018 Inactive levothyroxine 88 mcg tablet RxNorm: 130862 1 Tablet(s) PO daily . Take with 100 mcg tablet. 02/19/2018 02/18/2018 Inactive levothyroxine 100 mcg tablet RxNorm: 215775 1 Tablet(s) PO daily . Take with 88 mcg tablet 02/19/2018 05/20/2018 Inactive spironolactone 25 mg tablet RxNorm: 281261 1 Tablet(s) PO daily 02/12/2018 02/18/2018 Inactive pt will let you know when she is ready for the refill oxycodone 10 mg tablet RxNorm: 8927921 1 Tablet(s) PO TID as needed 02/12/2018 03/13/2018 Inactive oxycodone 10 mg tablet RxNorm: 5606918 1 Tablet(s) PO Q6 as needed 01/22/2018 02/11/2018 Inactive spironolactone 50 mg tablet RxNorm: 769968 TAKE 1 TABLET BY MOUTH DAILY 01/05/2018 02/11/2018 Inactive Generic For:ALDACTONE 50MG 01/05/2018 8:27:46 AM Kenalog 40 mg/mL suspension for injection RxNorm: 0714591 1 Milliliter(s) Inj 12/26/2017 12/26/2017 Inactive Zithromax Z-Fransisco 250 mg tablet RxNorm: 047515 1 Tablet(s) PO UD 12/26/2017 12/30/2017 Inactive oxycodone 10 mg tablet RxNorm: 4059192 1 Tablet(s) PO Q6 as needed 11/25/2017 12/24/2017 Inactive nystatin 100,000 unit/gram topical powder RxNorm: 600673 1 Application TOP BID 11/13/2017 09/22/2018 Inactive nystatin 100,000 unit/gram topical cream RxNorm: 469478 Gram(s) TOP QID 11/12/2017 11/18/2017 Inactive nystatin 100,000 unit/gram topical cream RxNorm: 266729 Gram(s) TOP QID 11/12/2017 11/11/2017 Inactive Lasix 20 mg tablet RxNorm: 563297 1 Tablet(s) PO daily as needed edema 11/03/2017 11/07/2017 Inactive potassium chloride ER 10 mEq tablet,extended release RxNorm: 352358 1 Tablet(s) PO daily while on the lasix 11/03/201701/2018 Inactive Keflex 500 mg capsule RxNorm: 819530 1 Capsule(s) PO TID 201711/07/2017 Inactive potassium chloride ER 10 mEq tablet,extended release RxNorm: 050867 1 Tablet(s) PO daily while on the lasix 10/29/2017 Inactive Lasix 20 mg tablet RxNorm: 805985 1 Tablet(s) PO daily as needed edema 10/29/2017 10/31/2017 Inactive oxycodone 10 mg tablet RxNorm: 6111817 1 Tablet(s) PO Q6 as needed 09/29/2017 10/28/2017 Inactive levothyroxine 200 mcg tablet RxNorm: 522951 TAKE 1 TABLET BY MOUTH DAILY 09/01/2017 02/18/2018 Inactive Generic For:*SYNTHROID 0.2MG TAB 09/01/2017 8:36:32 AM Bactrim DS 800 mg-160 mg tablet RxNorm: 113599 1 Tablet(s) PO BID 08/07/2017 08/16/2017 Inactive Bactrim DS 800 mg-160 mg tablet RxNorm: 899884 1 Tablet(s) PO BID 08/07/2017 08/06/2017 Inactive oxycodone 10 mg tablet RxNorm: 7737571 1 Tablet(s) PO Q6 as needed 07/31/2017 08/29/2017 Inactive spironolactone 50 mg tablet RxNorm: 335455 1 Tablet(s) PO daily 06/30/2017 12/26/2017 Inactive Not due for a refill until next month nadolol 20 mg tablet RxNorm: 661528 1/2 Tablet(s) PO daily 11/28/2017 Inactive nadolol 20 mg tablet RxNorm: 884894 1 Tablet(s) PO daily 201609/22/2018 Inactive nadolol 20 mg tablet RxNorm: 962987 1/2 Tablet(s) PO daily 05/21/2017 Inactive oxycodone 10 mg tablet RxNorm: 4343853 1 Tablet(s) PO Q6 as needed 04/01/2017 04/30/2017 Inactive levothyroxine 200 mcg tablet RxNorm: 140773 TAKE 1 TABLET BY MOUTH DAILY 03/10/2017 08/31/2017 Inactive Generic For:*SYNTHROID 0.2MG TAB 03/10/2017 8:49:05 AM potassium chloride ER 10 mEq tablet,extended release RxNorm: 604507 1 Tablet(s) PO daily while on the lasix 02/18/2017 Inactive Lasix 20 mg tablet RxNorm: 1 Tablet(s) PO daily as needed edema 02/18/2017 02/20/2017 Inactive Keflex 500 mg capsule RxNorm: 884396 1 Capsule(s) PO TID 201602/16/2017 Inactive Lasix 20 mg tablet RxNorm: 1 Tablet(s) PO daily 201602/15/2017 Inactive potassium chloride ER 10 mEq tablet,extended release RxNorm: 547376 1 Tablet(s) PO daily while on the lasix 02/14/2017 Inactive Lasix 20 mg tablet RxNorm: 1 Tablet(s) PO daily 201602/13/2017 Inactive potassium chloride ER 10 mEq tablet,extended release RxNorm: 257610 1 Tablet(s) PO daily while on the lasix 02/14/2017 Inactive oxycodone 10 mg tablet RxNorm: 7527713 1 Tablet(s) PO Q6 as needed 02/05/2017 03/06/2017 Inactive minocycline 50 mg tablet RxNorm: 282946 1 Tablet(s) PO Q72H 12/03/2017 Inactive spironolactone 50 mg tablet RxNorm: 485088 1 Tablet(s) PO daily 12/18/2016 06/15/2017 Inactive Not due for a refill until next month oxycodone 10 mg tablet RxNorm: 8819498 1 Tablet(s) PO Q6 as needed 12/05/2016 01/03/2017 Inactive nadolol 20 mg tablet RxNorm: 987531 1 Tablet(s) PO daily 201604/15/2017 Inactive oxycodone 10 mg tablet RxNorm: 4535219 1 Tablet(s) PO Q6 as needed 09/30/2016 10/29/2016 Inactive levothyroxine 200 mcg tablet RxNorm: 492037 TAKE 1 TABLET BY MOUTH DAILY 09/12/2016 03/09/2017 Inactive Generic For:*SYNTHROID 0.2MG TAB 09/12/2016 8:41:27 AM oxycodone 10 mg tablet RxNorm: 8752890 1 Tablet(s) PO Q6 as needed 08/06/2016 09/04/2016 Inactive oxycodone 10 mg tablet RxNorm: 8275726 1 Tablet(s) PO Q6 as needed 06/10/2016 07/09/2016 Inactive oxycodone 10 mg tablet RxNorm: 0139404 1 Tablet(s) PO Q6 as needed 04/05/2016 05/04/2016 Inactive levothyroxine 200 mcg tablet RxNorm: 370882 1 Tablet(s) PO daily 03/14/2016 09/09/2016 Inactive oxycodone 10 mg tablet RxNorm: 5122751 1 Tablet(s) PO Q6 as needed 02/08/2016 03/08/2016 Inactive Kenalog 40 mg/mL suspension for injection RxNorm: 6156670 Milliliter(s) Inj 11/16/2015 11/16/2015 Inactive Zithromax Z-Fransisco 250 mg tablet RxNorm: 859644 1 Tablet(s) PO UD 11/16/2015 11/20/2015 Inactive zpack, take probiotic while on abx oxycodone 10 mg tablet RxNorm: 7490154 1 Tablet(s) PO Q6 as needed 11/16/2015 02/07/2016 Inactive ceftriaxone 500 mg solution for injection RxNorm: 9820897 Inj 11/16/2015 11/16/2015 Inactive oxycodone 10 mg tablet RxNorm: 0411594 1 Tablet(s) PO Q6 as needed 10/11/2015 11/15/2015 Inactive levothyroxine 200 mcg tablet RxNorm: 030535 1 Tablet(s) PO daily 09/14/2015 03/11/2016 Inactive oxycodone 10 mg tablet RxNorm: 7142043 1 Tablet(s) PO Q6 as needed 08/10/2015 10/10/2015 Inactive Keflex 500 mg capsule RxNorm: 375781 1 Capsule(s) PO TID 201407/03/2015 Inactive Keflex 500 mg capsule RxNorm: 938757 1 Capsule(s) PO TID 201406/25/2015 Inactive oxycodone 10 mg tablet RxNorm: 4462124 1 Tablet(s) PO Q6 as needed 04/03/2015 08/09/2015 Inactive oxycodone 10 mg tablet RxNorm: 2474340 1 Tablet(s) PO Q6 as needed 02/14/2015 04/02/2015 Inactive Keflex 500 mg capsule RxNorm: 253498 1 Capsule(s) PO TID 201401/22/2015 Inactive Culturelle 10 billion cell capsule RxNorm: 658698 1 Capsule(s) PO daily 01/16/2015 02/14/2015 Inactive Dulcolax Stool Softener (docusate) 100 mg capsule RxNorm: 5549924 1 Capsule(s) PO daily 12/05/2014 02/11/2018 Inactive [SAVINGS FOR NON-COVERED DRUGS -- [id number], PCN: [id number], Group: [id number], ID# [id number], Questions: . THIS IS NOT INSURANCE.] Claritin 10 mg tablet RxNorm: 191218 1 Tablet(s) PO daily No Start Date Active Miralax 17 gram/dose oral powder RxNorm: 115319 17 Gram(s) PO QHS No Start Date Active multivitamin tablet RxNorm: 1 Tablet(s) PO daily No Start Date Active Colace 100 mg capsule RxNorm: 0528805 1 Capsule(s) PO BID No Start Date Active PreserVision AREDS oral RxNorm: 926145 oral No Start Date Active Restasis 0.05 % eye drops in a dropperette RxNorm: 892928 1 Drop(s) OPH BID No Start Date Active Vitamin D3 2,000 unit capsule RxNorm: 768895 1 Capsule(s) PO daily No Start Date 05/20/2018 Inactive minocycline 50 mg tablet RxNorm: 655465 1 Tablet(s) PO QHS No Start Date 01/20/2017 Inactive nadolol 20 mg tablet RxNorm: 371636 1 Tablet(s) PO daily No Start Date 11/05/2016 Inactive nadolol 20 mg tablet RxNorm: 243917 1 Tablet(s) PO daily No Start Date 11/05/2016 Inactive Ocuvite tablet RxNorm : 1 Tablet(s) PO BID No Start Date 05/20/2018 Inactive oxycodone 10 mg tablet RxNorm: 9031112 1 Tablet(s) PO Q6 as needed No Start Date 02/13/2015 Inactive Dulcolax Stool Softener (docusate) 100 mg capsule RxNorm: 8019559 1 Capsule(s) PO BID No Start Date 12/04/2014 Inactive Multivitamin 50 Plus tablet RxNorm: 1 Tablet(s) PO QAM No Start Date 02/11/2018 Inactive Finacea 15 % topical gel RxNorm: 8360937 TOP No Start Date 05/24/2018 Inactive Synthroid 200mcg Oral RxNorm: oral No Start Date 09/13/2015 Inactive spironolactone 50 mg tablet RxNorm: 073465 1 Tablet(s) PO daily No Start Date 12/17/2016 Inactive spironolactone 50 mg tablet RxNorm: 182345 1 Tablet(s) PO daily No Start Date 02/11/2018 Inactive Medication Administered Medication Codes Instructions Start Date Status Kenalog 40 mg/mL suspension for injection RxNorm: 5389571 1Milliliter 12/26/2017 No longer Active ceftriaxone 500 mg solution for injection RxNorm: 4350116 11/16/2015 No longer Active Kenalog 40 mg/mL suspension for injection RxNorm: 7891960 Milliliter 11/16/2015 No longer Active Immunizations Vaccine Codes Date Status Influenza CVX: 141 04/23/2018 completed Influenza CVX: 141 04/16/2017 completed Influenza CVX: 141 08/26/2016 completed Assessments Condition Codes Effective Dates Laceration without foreign body, right foot, subsequent encounter ICD-10: S91.311D ICD-9: V58.89 11/11/2018 Laceration without foreign body, right foot, initial encounter ICD-10: S91.311A ICD-9: 892.0 11/04/2018 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 ICD-9: 571.6 10/21/2018 Other ascites ICD-10: R18.8 ICD-9: 789.59 10/21/2018 Essential (primary) hypertension ICD-10: I10 ICD-9: 401.1 10/21/2018 Other mucopurulent conjunctivitis, bilateral ICD-10: H10.023 ICD-9: 372.03 10/21/2018 Low back pain ICD-10: M54.5 ICD-9: 724.2 10/21/2018 Localized edema ICD-10: R60.0 ICD-9: 782.3 09/23/2018 Atrophy of thyroid (acquired) ICD-10: E03.4 ICD-9: 244.8 09/23/2018 Lymphedema, not elsewhere classified ICD-10: I89.0 ICD-9: 457.1 07/23/2018 Other chronic pain ICD-10: G89.29 ICD-9: 338.29 05/25/2018 Pain in left knee ICD-10: M25.562 ICD-9: 719.46 05/25/2018 Encounter for immunization ICD-10: Z23 ICD-9: V04.81 04/23/2018 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6 11/03/2017 Cellulitis of right lower limb ICD-10: L03.115 ICD-9: 682.6 11/03/2017 Stiffness of left hand, not elsewhere classified ICD-10: M25.642 ICD-9: 719.54 09/04/2017 Stiffness of right hand, not elsewhere classified ICD-10: M25.641 ICD-9: 719.54 09/04/2017 Other viral warts ICD-10: B07.8 ICD-9: 078.19 08/08/2017 Other skin changes ICD-10: R23.8 ICD-9: 709.8 08/08/2017 Sick sinus syndrome ICD-10: I49.5 ICD-9: 427.81 04/16/2017 Other abnormal glucose ICD-10: R73.09 ICD-9: [...] Visit Reason For Visit Effective Dates Notes foot pain 11/11/2018 foot pain 11/04/2018 hypertension 10/21/2018 hypertension 09/23/2018 cough 09/14/2018 cough 07/23/2018 cough 07/07/2018 Hospital Follow Up 06/22/2018 edema 05/25/2018 edema 04/23/2018 edema 04/01/2018 edema 03/18/2018 Hospital Follow Up 03/09/2018 hypertension 02/12/2018 cough [...] Observation Code Item Item Code Result Date Free T4 [id number] FREE T4 1.92 ng/dL 04/24/2018 Tsh Ord6 TSH (3rd IS) 0.11 uIU/mL 04/24/2018 Cbc With Differential Ord2 WBC 3.08 K/ul 04/24/2018 Cbc With Differential Ord2 RBC 3.89 M/ul 04/24/2018 Cbc With Differential Ord2 HGB 12.1 g/dl 04/24/2018 Cbc With Differential Ord2 HCT 36.3 % 04/24/2018 Cbc With Differential Ord2 Neut% 54.2 % 04/24/2018 Cbc With Differential Ord2 MCV 93.3 fl 04/24/2018 Cbc With Differential Ord2 Lymph% 32.5 % 04/24/2018 Cbc With Differential Ord2 MCH 31.1 pg 04/24/2018 Cbc With Differential Ord2 Otoe% 13.0 % 04/24/2018 Cbc With Differential Ord2 MCHC 33.3 pg 04/24/2018 Cbc With Differential Ord2 Eos% 0.3 % 04/24/2018 Cbc With Differential Ord2 PLT 55 K/ul 04/24/2018 Cbc With Differential Ord2 Baso% 0.0 % 04/24/2018 Cbc With Differential Ord2 RDW 15.3 % 04/24/2018 Cbc With Differential Ord2 Neut ABS# 1.67 K/ul 04/24/2018 Cbc With Differential Ord2 Lymph ABS# 1.00 K/ul 04/24/2018 Cbc With Differential Ord2 Otoe ABS# 0.4 K/ul 04/24/2018 Cbc With Differential Ord2 Eos ABS# 0.0 K/ul 04/24/2018 Cbc With Differential Ord2 Baso ABS# 0.0 K/ul 04/24/2018 Comp Metabolic Pck518 NA 138 mEq/L 04/24/2018 Comp Metabolic Wol921 K 3.9 mEq/L 04/24/2018 Comp Metabolic Tzd772 CL 97 mEq/L 04/24/2018 Comp Metabolic Wpw347 CO2 32.0 mEq/L 04/24/2018 Comp Metabolic Ouk340 ANION GAP 13 04/24/2018 Comp Metabolic Ptm192 GLUCOSE 194 mg/dL 04/24/2018 Comp Metabolic Ozu172 Creat 0.8 mg/dL 04/24/2018 Comp Metabolic Bul760 eGFR 70 ml/min/1.73m2 04/24/2018 Comp Metabolic Flv932 BUN 20 mg/dL 04/24/2018 Comp Metabolic Oxu671 B/C Ratio 24.1 Ratio 04/24/2018 Comp Metabolic Kyc198 CALCIUM 9.4 mg/dL 04/24/2018 Comp Metabolic Zay467 ALK PHOS 110 U/L 04/24/2018 Comp Metabolic Kfd270 AST(SGOT) 33 U/L 04/24/2018 Comp Metabolic Epp170 ALT(SGPT) 16 U/L 04/24/2018 Comp Metabolic Hax803 BILI T 1.8 mg/dL 04/24/2018 Comp Metabolic Xgi911 ALBUMIN 4.0 g/dL 04/24/2018 Comp Metabolic Brn657 TPRO 5.7 g/dL 04/24/2018 Comp Metabolic Rlm440 GLOB 1.7 g/dL 04/24/2018 Comp Metabolic Rok608 A/G Ratio 2.3 Ratio 04/24/2018 Comp Metabolic Uiu537 Osmo 284 mOsmo 04/24/2018 Tsh Ord6 TSH (3rd IS) 0.07 uIU/mL 02/13/2018 Free T4 Dzx555 FREE T4 1.85 ng/dL 02/13/2018 %Hba1C Jkb987 % HbA1c 14452-5 5.9 % 01/21/2017 %Hba1C Cpz244 Gluc Ave 123 mg/dL 01/21/2017 Comp Metabolic Vrd277 NA 136 mEq/L 01/21/2017 Comp Metabolic Mso477 K 4.3 mEq/L 01/21/2017 Comp Metabolic Uho943 CL 99 mEq/L 01/21/2017 Comp Metabolic Rah308 CO2 30.0 mEq/L 01/21/2017 Comp Metabolic Igg957 ANION GAP 11 01/21/2017 Comp Metabolic Zqp028 GLUCOSE 234 mg/dL 01/21/2017 Comp Metabolic Mkf637 Creat 0.5 mg/dL 01/21/2017 Comp Metabolic Mqd061 eGFR 115 ml/min/1.73m2 01/21/2017 Comp Metabolic Lvg243 BUN 10 mg/dL 01/21/2017 Comp Metabolic Kma873 B/C Ratio 18.5 Ratio 01/21/2017 Comp Metabolic Idn024 CALCIUM 8.8 mg/dL 01/21/2017 Comp Metabolic Ujw215 ALK PHOS 74 U/L 01/21/2017 Comp Metabolic Wxk906 AST(SGOT) 28 U/L 01/21/2017 Comp Metabolic Zey916 ALT(SGPT) 15 U/L 01/21/2017 Comp Metabolic Ohm342 BILI T 1.1 mg/dL 01/21/2017 Comp Metabolic Rbo435 ALBUMIN 3.8 g/dL 01/21/2017 Comp Metabolic Yxt571 TPRO 5.8 g/dL 01/21/2017 Comp Metabolic Njm259 GLOB 2.0 g/dL 01/21/2017 Comp Metabolic Oyz695 A/G Ratio 1.9 Ratio 01/21/2017 Comp Metabolic Too455 Osmo 279 mOsmo 01/21/2017 Tsh Ord6 hTSH II 0.80 uIU/mL 04/03/2015 Bili D Ord93 BILI D 0.1 mg/dL 04/03/2015 Bili D Ord93 BILI I 0.9 mg/dL 04/03/2015 Free T4 Qak330 FREE T4 1.27 ng/dL 04/03/2015 Cbc With [...] Ord2 RDW 15.6 % 04/03/2015 Comp Metabolic Ijb429 NA 136 mEq/L 04/03/2015 Comp Metabolic Pau286 K 4.3 mEq/L 04/03/2015 Comp Metabolic Deb616 CL 99 mEq/L 04/03/2015 Comp Metabolic Zvk387 CO2 29.0 mEq/L 04/03/2015 Comp Metabolic Kot329 ANION GAP 12 04/03/2015 Comp Metabolic Frb228 GLUCOSE 120 mg/dL 04/03/2015 Comp Metabolic Tvf538 Creat 0.5 mg/dL 04/03/2015 Comp Metabolic Vkj609 eGFR 118 ml/min/1.73m2 04/03/2015 Comp Metabolic Qav176 BUN 11 mg/dL 04/03/2015 Comp Metabolic Bco338 B/C Ratio 20.8 Ratio 04/03/2015 Comp Metabolic Cfb511 CALCIUM 9.3 mg/dL 04/03/2015 Comp Metabolic Zai510 ALK PHOS 61 U/L 04/03/2015 Comp Metabolic Koe231 AST(SGOT) 28 U/L 04/03/2015 Comp Metabolic Why761 ALT(SGPT) 16 U/L 04/03/2015 Comp Metabolic Bzc306 BILI T 1.0 mg/dL 04/03/2015 Comp Metabolic Haq514 ALBUMIN 4.1 g/dL 04/03/2015 Comp Metabolic Ory637 TPRO 6.1 g/dL 04/03/2015 Comp Metabolic Opc309 GLOB 2.0 g/dL 04/03/2015 Comp Metabolic Giq281 A/G Ratio 2.1 Ratio 04/03/2015 Comp Metabolic Rdz266 Osmo 273 mOsmo 04/03/2015 Review of Systems System Result Effective Dates Constitutional No recent illness 2018 Constitutional No chills 11/11/2018 Constitutional No diaphoresis 11/11/2018 Constitutional No fever 11/11/2018 Eyes No eye erythema 11/11/2018 Ears/Nose/Throat/Neck No nasal discharge 11/11/2018 Cardiovascular No chest pain/pressure 05/2019 Respiratory No cough 11/11/2018 Dermatologic sores 11/11/2018 Neurologic No alteration of consciousness 11/11/2018 Neurologic No mental status change 2018 Constitutional No recent illness 2018 Constitutional No chills 11/04/2018 Constitutional No diaphoresis 11/04/2018 Constitutional No fever 11/04/2018 Eyes No eye erythema 11/04/2018 Ears/Nose/Throat/Neck No nasal discharge 11/04/2018 Cardiovascular No chest pain/pressure 10/2018 Respiratory No cough 11/04/2018 Neurologic No alteration of consciousness 11/04/2018 Neurologic No mental status change 2018 Dermatologic sores 11/04/2018 Constitutional recent illness 10/21/2018 Constitutional No chills 10/21/2018 Constitutional fatigue 10/21/2018 Constitutional No fever 10/21/2018 Eyes No blindness 10/21/2018 Eyes eye pain 10/21/2018 Eyes No vision change 10/21/2018 Ears/Nose/Throat/Neck No headache 2018 Cardiovascular No chest pain/pressure Cardiovascular No dyspnea 10/21/2018 Cardiovascular edema 10/21/2018 Cardiovascular No palpitations 2018 Respiratory No cough 10/21/2018 Gastrointestinal No constipation 2018 Gastrointestinal No diarrhea 10/21/2018 Gastrointestinal gas and bloating 2018 Genitourinary/Nephrology urinary frequency 10/21/2018 Musculoskeletal stiffness 10/21/2018 Musculoskeletal arthralgia(s) 10/21/2018 Musculoskeletal joint complaint 2018 Musculoskeletal muscle weakness 2018 Dermatologic No rash 10/21/2018 Neurologic No alteration of consciousness 10/21/2018 Neurologic No mental status change 2018 Psychiatric No anxiety 10/21/2018 Psychiatric No depression 10/21/2018 Constitutional recent illness 09/23/2018 Constitutional No chills 09/23/2018 Constitutional fatigue 09/23/2018 Constitutional No fever 09/23/2018 Eyes No blindness 09/23/2018 Eyes No vision change 09/23/2018 Ears/Nose/Throat/Neck No headache 2018 Cardiovascular No chest pain/pressure Cardiovascular No dyspnea 09/23/2018 Cardiovascular edema 09/23/2018 Cardiovascular No palpitations 2018 Respiratory No cough 09/23/2018 Gastrointestinal No constipation 2018 Gastrointestinal No diarrhea 09/23/2018 Gastrointestinal gas and bloating 2018 Genitourinary/Nephrology urinary frequency 09/23/2018 Musculoskeletal stiffness 09/23/2018 Musculoskeletal arthralgia(s) 09/23/2018 Musculoskeletal joint complaint 2018 Musculoskeletal muscle weakness 2018 Neurologic No alteration of consciousness 09/23/2018 Neurologic No mental status change 2018 Psychiatric No anxiety 09/23/2018 Psychiatric No depression 09/23/2018 Dermatologic No rash 09/23/2018 Eyes eye pain 09/23/2018 Constitutional recent illness 09/14/2018 Constitutional No chills 09/14/2018 Constitutional fatigue 09/14/2018 Constitutional No fever 09/14/2018 Eyes No eye erythema 09/14/2018 Eyes No vision change 09/14/2018 Ears/Nose/Throat/Neck No headache 2018 Cardiovascular No chest pain/pressure 06/2019 Cardiovascular No dyspnea 09/14/2018 Cardiovascular edema 09/14/2018 Cardiovascular No palpitations 2018 Respiratory No cough 09/14/2018 Gastrointestinal No constipation 2018 Gastrointestinal No diarrhea 09/14/2018 Gastrointestinal gas and bloating 2018 Musculoskeletal stiffness 09/14/2018 Musculoskeletal arthralgia(s) 09/14/2018 Musculoskeletal joint complaint 2018 Musculoskeletal muscle weakness 2018 Neurologic No alteration of consciousness 09/14/2018 Neurologic No mental status change 2018 Constitutional recent illness 07/23/2018 Constitutional No chills 07/23/2018 Constitutional fatigue 07/23/2018 Constitutional No fever 07/23/2018 Eyes No blindness 07/23/2018 Eyes No vision change 07/23/2018 Ears/Nose/Throat/Neck No headache 2017 Cardiovascular No chest pain/pressure Cardiovascular No dyspnea 07/23/2018 Cardiovascular edema 07/23/2018 Cardiovascular No palpitations 2017 Respiratory No cough 07/23/2018 Gastrointestinal No constipation 2017 Gastrointestinal No diarrhea 07/23/2018 Musculoskeletal stiffness 07/23/2018 Musculoskeletal arthralgia(s) 07/23/2018 Musculoskeletal joint complaint 2017 Musculoskeletal muscle weakness 2017 Neurologic No alteration of consciousness 07/23/2018 Neurologic No mental status change 2017 Psychiatric No anxiety 07/23/2018 Psychiatric No depression 07/23/2018 Genitourinary/Nephrology urinary frequency 07/23/2018 Gastrointestinal gas and bloating 2017 Constitutional recent illness 07/07/2018 Constitutional No chills 07/07/2018 Constitutional fatigue 07/07/2018 Constitutional No fever 07/07/2018 Eyes No blindness 07/07/2018 Eyes No vision change 07/07/2018 Ears/Nose/Throat/Neck No headache 2017 Cardiovascular No chest pain/pressure 11/2017 Cardiovascular No dyspnea 07/07/2018 Cardiovascular edema 07/07/2018 Cardiovascular No palpitations 2017 Respiratory No cough 07/07/2018 Gastrointestinal No constipation 2017 Gastrointestinal No diarrhea 07/07/2018 Gastrointestinal No nausea 07/07/2018 Gastrointestinal No vomiting 07/07/2018 Genitourinary/Nephrology No dysuria 07/07 Genitourinary/Nephrology No hematuria 11/2017 Musculoskeletal stiffness 07/07/2018 Musculoskeletal arthralgia(s) 07/07/2018 Musculoskeletal joint complaint 2017 Musculoskeletal muscle weakness 2017 Dermatologic sores 07/07/2018 Neurologic No alteration of consciousness 07/07/2018 Neurologic No mental status change 2017 Psychiatric No anxiety 07/07/2018 Psychiatric No depression 07/07/2018 Constitutional No recent illness 2017 Constitutional No chills 06/22/2018 Constitutional fatigue 06/22/2018 Constitutional No fever 06/22/2018 Eyes No blindness 06/22/2018 Eyes No vision change 06/22/2018 Ears/Nose/Throat/Neck No headache 2017 Cardiovascular No chest pain/pressure Cardiovascular No dyspnea 06/22/2018 Cardiovascular edema 06/22/2018 Cardiovascular No palpitations 2017 Respiratory No cough 06/22/2018 Gastrointestinal No constipation 2017 Gastrointestinal No diarrhea 06/22/2018 Gastrointestinal No nausea 06/22/2018 Gastrointestinal No vomiting 06/22/2018 Genitourinary/Nephrology No dysuria 06/22 Genitourinary/Nephrology No hematuria Musculoskeletal stiffness 06/22/2018 Musculoskeletal arthralgia(s) 06/22/2018 Musculoskeletal joint complaint 2017 Musculoskeletal muscle weakness 2017 Dermatologic sores 06/22/2018 Neurologic No alteration of consciousness 06/22/2018 Neurologic No mental status change 2017 Psychiatric No anxiety 06/22/2018 Psychiatric No depression 06/22/2018 Constitutional No recent illness 2017 Constitutional No chills 05/25/2018 Constitutional fatigue 05/25/2018 Constitutional No fever 05/25/2018 Eyes No blindness 05/25/2018 Eyes No vision change 05/25/2018 Ears/Nose/Throat/Neck No headache 2017 Cardiovascular No chest pain/pressure Cardiovascular No dyspnea 05/25/2018 Cardiovascular edema 05/25/2018 Cardiovascular No palpitations 2017 Respiratory No cough 05/25/2018 Gastrointestinal No constipation 2017 Gastrointestinal No diarrhea 05/25/2018 Gastrointestinal No nausea 05/25/2018 Gastrointestinal No vomiting 05/25/2018 Genitourinary/Nephrology No dysuria 05/25 Genitourinary/Nephrology No hematuria Musculoskeletal stiffness 05/25/2018 Musculoskeletal arthralgia(s) 05/25/2018 Musculoskeletal joint complaint 2017 Musculoskeletal muscle weakness 2017 Dermatologic sores 05/25/2018 Neurologic No alteration of consciousness 05/25/2018 Neurologic No mental status change 2017 Psychiatric No anxiety 05/25/2018 Psychiatric No depression 05/25/2018 Constitutional No recent illness 2017 Constitutional No chills 04/23/2018 Constitutional fatigue 04/23/2018 Constitutional No fever 04/23/2018 Eyes No blindness 04/23/2018 Eyes No vision change 04/23/2018 Ears/Nose/Throat/Neck No headache 2017 Cardiovascular No chest pain/pressure Cardiovascular No dyspnea 04/23/2018 Cardiovascular edema 04/23/2018 Cardiovascular No palpitations 2017 Respiratory No cough 04/23/2018 Gastrointestinal No constipation 2017 Gastrointestinal No diarrhea 04/23/2018 Gastrointestinal No nausea 04/23/2018 Gastrointestinal No vomiting 04/23/2018 Genitourinary/Nephrology No dysuria 04/23 Genitourinary/Nephrology No hematuria Musculoskeletal stiffness 04/23/2018 Musculoskeletal arthralgia(s) 04/23/2018 Neurologic No alteration of consciousness 04/23/2018 Neurologic No mental status change 2017 Psychiatric No anxiety 04/23/2018 Psychiatric No depression 04/23/2018 Musculoskeletal joint complaint 2017 Musculoskeletal muscle weakness 2017 Dermatologic sores 04/23/2018 Constitutional No recent illness 2017 Constitutional fatigue 04/01/2018 Constitutional No fever 04/01/2018 Cardiovascular No chest pain/pressure Cardiovascular No dyspnea 04/01/2018 Cardiovascular edema 04/01/2018 Cardiovascular exercise intolerance 04/01 Cardiovascular fatigue 04/01/2018 Cardiovascular No near-syncope/dizziness 04/01/2018 Respiratory chest tightness 04/01/2018 Gastrointestinal No abdominal pain 2017 Musculoskeletal stiffness 04/01/2018 Musculoskeletal arthralgia(s) 04/01/2018 Psychiatric No anxiety 04/01/2018 Psychiatric No depression 04/01/2018 Constitutional No chills 04/01/2018 Eyes No blindness 04/01/2018 Eyes No vision change 04/01/2018 Ears/Nose/Throat/Neck No headache 2017 Cardiovascular No palpitations 2017 Respiratory No cough 04/01/2018 Gastrointestinal No constipation 2017 Gastrointestinal No diarrhea 04/01/2018 Gastrointestinal No nausea 04/01/2018 Gastrointestinal No vomiting 04/01/2018 Dermatologic acne rosacea 04/01/2018 Neurologic No alteration of consciousness 04/01/2018 Neurologic No mental status change 2017 Musculoskeletal back pain 04/01/2018 Musculoskeletal joint complaint 2017 Constitutional recent illness 03/09/2018 Constitutional No chills [...] Result Effective Dates Notes Full Exam - Dermatology Constitutional general appearance Overall: well nourished 11/11/2018 None Full Exam - Dermatology Constitutional general appearance Overall: well developed 11/11/2018 None Full Exam - Dermatology Constitutional general appearance Overall: in no acute distress 11/11/2018 None Full Exam - Dermatology Eyes conjunctiva/ eyelids Overall: clear conjunctiva bilaterally 11/11/2018 None Full Exam - Dermatology Eyes conjunctiva/ eyelids Overall: clear corneas 11/11/2018 None Full Exam - Dermatology Eyes conjunctiva/ eyelids Overall: normal eyelids 11/11/2018 None Full Exam - Dermatology Ears/Nose/Throat lips/teeth/gingiva Overall: benign lips 11/11/2018 None Full Exam - Dermatology Ears/Nose/Throat oropharynx Overall: clear oral mucosa 11/11/2018 None Full Exam - Dermatology Respiratory respiratory effort/rhythm Overall: no retractions 11/11/2018 None Full Exam - Dermatology Respiratory respiratory effort/rhythm Overall: normal rate 11/11/2018 None Full Exam - Dermatology Musculoskeletal head and neck Overall: head atraumatic 11/11/2018 None Full Exam - Dermatology Integument insp & palp - right lower extremity Lesion: skin tear 11/11/2018 right 5th toe Full Exam - Dermatology Integument insp & palp - right lower extremity Color: erythematous 11/11/2018 None Full Exam - Dermatology Psychiatric orientation Overall: oriented to person, place and time 11/11/2018 None Full Exam - Dermatology Psychiatric mood and affect Overall: normal mood and affect 11/11/2018 None Full Exam - Dermatology Constitutional general appearance Overall: well nourished 11/04/2018 None Full Exam - Dermatology Constitutional general appearance Overall: well developed 11/04/2018 None Full Exam - Dermatology Constitutional general appearance Overall: in no acute distress 11/04/2018 None Full Exam - Dermatology Eyes conjunctiva/ eyelids Overall: clear conjunctiva bilaterally 11/04/2018 None Full Exam - Dermatology Eyes conjunctiva/ eyelids Overall: clear corneas 11/04/2018 None Full Exam - Dermatology Eyes conjunctiva/ eyelids Overall: normal eyelids 11/04/2018 None Full Exam - Dermatology Ears/Nose/Throat lips/teeth/gingiva Overall: benign lips 11/04/2018 None Full Exam - Dermatology Ears/Nose/Throat oropharynx Overall: clear oral mucosa 11/04/2018 None Full Exam - Dermatology Respiratory respiratory effort/rhythm Overall: no retractions 11/04/2018 None Full Exam - Dermatology Respiratory respiratory effort/rhythm Overall: normal rate 11/04/2018 None Full Exam - Dermatology Musculoskeletal head and neck Overall: head atraumatic 11/04/2018 None Full Exam - Dermatology Psychiatric orientation Overall: oriented to person, place and time 11/04/2018 None Full Exam - Dermatology Psychiatric mood and affect Overall: normal mood and affect 11/04/2018 None Full Exam - Dermatology Integument insp & palp - right lower extremity Lesion: skin tear 11/04/2018 right 5th toe Full Exam - Dermatology Integument insp & palp - right lower extremity Color: erythematous 11/04/2018 None Full Exam - General 1994 Constitutional general appearance Development: well developed 10/21/2018 None Full Exam - General 1994 Constitutional general appearance Development: appears stated age 0310/21/2018 None Full Exam - General 1994 Constitutional general appearance Hygiene/Attention to Grooming: good hygiene 10/21/2018 None Full Exam - General 1994 Eyes conjunctiva /eyelids Overall: conjunctiva clear 10/21/2018 None Full Exam - General 1994 Eyes conjunctiva /eyelids Overall: cornea clear 10/21/2018 None Full Exam - General 1994 Eyes conjunctiva /eyelids Overall: eyelids normal 10/21/2018 None Full Exam - General 1994 Eyes pupils and irises Overall: pupils equal, round, reactive to light and accomodation 10/21/2018 None Full Exam - General 1994 Ears/Nose/Throat external ear Overall: normal appearance 10/21/2018 None Full Exam - General 1995 Ears/Nose/Throat lips/teeth/gingiva Overall: benign lips 10/21/2018 None Full Exam - General 1995 Ears/Nose/Throat lips/teeth/gingiva Overall: normal dentition 10/21/2018 None Full Exam - General 1994 Ears/Nose/Throat oral cavity/pharynx/larynx Overall: oral mucosa clear 10/21/2018 None Full Exam - General 1994 Respiratory auscultation Overall: breath sounds clear bilaterally 10/21/2018 None Full Exam - General 1994 Respiratory respiratory effort/rhythm Overall: no retractions 10/21/2018 None Full Exam - General 1994 Respiratory respiratory effort/rhythm Overall: normal rate 10/21/2018 None Full Exam - General 1994 Cardiovascular extremities Overall: no clubbing 10/21/2018 None Full Exam - General 1994 Cardiovascular extremities Edema present: pitting 10/21/2018 None Full Exam - General 1994 Cardiovascular extremities Edema present: severity 1+ - 4 +: 1+ 10/21/2018 None Full Exam - General 1994 Cardiovascular auscultation of heart Rate: regular rate 10/21/2018 None Full Exam - General 1994 Cardiovascular auscultation of heart Murmur: previously known murmur unchanged 10/21/2018 None Full Exam - General 1994 Cardiovascular auscultation of heart Systolic murmur: holosystolic 10/21/2018 None Full Exam - General 1994 Cardiovascular auscultation of heart Systolic murmur grade: III/ 10/21/2018 None Full Exam - General 1994 Abdomen abdominal exam Overall: no tenderness 10/21/2018 None Full Exam - General 1994 Abdomen abdominal exam Overall: normal bowel sounds 10/21/2018 None Full Exam - General 1994 Musculoskeletal lower extremity Palpation - knee: crepitus 10/21/2018 None Full Exam - General 1994 Musculoskeletal gait and station Overall: normal gait 10/21/2018 None Full Exam - General 1994 Musculoskeletal gait and station Overall: normal station 10/21/2018 None Full Exam - General 1994 Musculoskeletal head and neck Overall: cervical spine benign 10/21/2018 None Full Exam - General 1994 Psychiatric orientation/consciousness Overall: oriented to person, place and time 10/21/2018 None Full Exam - General 1994 Psychiatric mood and affect Overall: normal mood and affect 10/21/2018 None Full Exam - General 1994 Constitutional general appearance Development: well developed 09/23/2018 None Full Exam - General 1994 Constitutional general appearance Development: appears stated age 0209/23/2018 None Full Exam - General 1994 Constitutional general appearance Hygiene/Attention to Grooming: good hygiene 09/23/2018 None Full Exam - General 1994 Eyes conjunctiva /eyelids Overall: conjunctiva clear 09/23/2018 None Full Exam - General 1994 Eyes conjunctiva /eyelids Overall: cornea clear 09/23/2018 None Full Exam - General 1994 Eyes conjunctiva /eyelids Overall: eyelids normal 09/23/2018 None Full Exam - General 1994 Eyes pupils and irises Overall: pupils equal, round, reactive to light and accomodation 09/23/2018 None Full Exam - General 1994 Ears/Nose/Throat external ear Overall: normal appearance 09/23/2018 None Full Exam - General 1994 Ears/Nose/Throat lips/teeth/gingiva Overall: benign lips 09/23/2018 None Full Exam - General 1994 Ears/Nose/Throat lips/teeth/gingiva Overall: normal dentition 09/23/2018 None Full Exam - General 1994 Ears/Nose/Throat oral cavity/pharynx/larynx Overall: oral mucosa clear 09/23/2018 None Full Exam - General 1994 Respiratory auscultation Overall: breath sounds clear bilaterally 09/23/2018 None Full Exam - General 1994 Respiratory respiratory effort/rhythm Overall: no retractions 09/23/2018 None Full Exam - General 1994 Respiratory respiratory effort/rhythm Overall: normal rate 09/23/2018 None Full Exam - General 1994 Cardiovascular extremities Overall: no clubbing 09/23/2018 None Full Exam - General 1994 Cardiovascular extremities Edema present: pitting 09/23/2018 None Full Exam - General 1994 Cardiovascular extremities Edema present: severity 1+ - 4 +: 1+ 09/23/2018 None Full Exam - General 1994 Cardiovascular auscultation of heart Rate: regular rate 09/23/2018 None Full Exam - General 1994 Cardiovascular auscultation of heart Murmur: previously known murmur unchanged 09/23/2018 None Full Exam - General 1994 Cardiovascular auscultation of heart Systolic murmur: holosystolic 09/23/2018 None Full Exam - General 1994 Cardiovascular auscultation of heart Systolic murmur grade: III/ 09/23/2018 None Full Exam - General 1994 Abdomen abdominal exam Overall: no tenderness 09/23/2018 None Full Exam - General 1994 Abdomen abdominal exam Overall: normal bowel sounds 09/23/2018 None Full Exam - General 1994 Musculoskeletal lower extremity Palpation - knee: crepitus 09/23/2018 None Full Exam - General 1995 Musculoskeletal gait and station Overall: normal gait 09/23/2018 None Full Exam - General 1994 Musculoskeletal gait and station Overall: normal station 09/23/2018 None Full Exam - General 1994 Musculoskeletal head and neck Overall: cervical spine benign 09/23/2018 None Full Exam - General 1994 Psychiatric orientation/consciousness Overall: oriented to person, place and time 09/23/2018 None Full Exam - General 1994 Psychiatric mood and affect Overall: normal mood and affect 09/23/2018 None Full Exam - General 1994 Constitutional general appearance Hygiene/Attention to Grooming: good hygiene 09/14/2018 None Full Exam - General 1995 Eyes conjunctiva /eyelids Overall: conjunctiva clear 09/14/2018 None Full Exam - General 1994 Eyes conjunctiva /eyelids Overall: cornea clear 09/14/2018 None Full Exam - General 1994 Eyes conjunctiva /eyelids Overall: eyelids normal 09/14/2018 None Full Exam - General 1994 Eyes pupils and irises Overall: pupils equal, round, reactive to light and accomodation 09/14/2018 None Full Exam - General 1994 Ears/Nose/Throat lips/teeth/gingiva Overall: benign lips 09/14/2018 None Full Exam - General 1994 Ears/Nose/Throat oral cavity/pharynx/larynx Overall: oral mucosa clear 09/14/2018 None Full Exam - General 1994 Respiratory auscultation Overall: breath sounds clear bilaterally 09/14/2018 None Full Exam - General 1994 Respiratory respiratory effort/rhythm Overall: no retractions 09/14/2018 None Full Exam - General 1994 Respiratory respiratory effort/rhythm Overall: normal rate 09/14/2018 None Full Exam - General 1994 Cardiovascular extremities Overall: no clubbing 09/14/2018 None Full Exam - General 1994 Cardiovascular extremities Edema present: pitting 09/14/2018 None Full Exam - General 1994 Cardiovascular auscultation of heart Rate: regular rate 09/14/2018 None Full Exam - General 1994 Cardiovascular auscultation of heart Murmur: previously known murmur unchanged 09/14/2018 None Full Exam - General 1994 Cardiovascular auscultation of heart Systolic murmur: holosystolic 09/14/2018 None Full Exam - General 1994 Cardiovascular auscultation of heart Systolic murmur grade: III/ 09/14/2018 None Full Exam - General 1994 Abdomen abdominal exam Overall: no tenderness 09/14/2018 None Full Exam - General 1994 Abdomen abdominal exam Overall: normal bowel sounds 09/14/2018 None Full Exam - General 1994 Psychiatric orientation/consciousness Overall: oriented to person, place and time 09/14/2018 None Full Exam - General 1994 Psychiatric mood and affect Overall: normal mood and affect 09/14/2018 None Full Exam - General 1994 Constitutional general appearance Overall: well developed 09/14/2018 None Full Exam - General 1994 Constitutional general appearance Overall: in no acute distress 09/14/2018 None Full Exam - General 1994 Respiratory auscultation Diffuse: diminished 09/14/2018 None Full Exam - General 1994 Neurologic cranial nerves Overall: crainial nerves 2 - 12 grossly intact 09/14/2018 None Full Exam - General 1994 Cardiovascular extremities Edema present: severity 1+ - 4 +: 3+ 09/14/2018 None Full Exam - General 1994 Musculoskeletal head and neck Overall: head atraumatic 09/14/2018 None Full Exam - General 1994 Constitutional general appearance Development: well developed 07/23/2018 None Full Exam - General 1994 Constitutional general appearance Development: appears stated age 1207/23/2018 None Full Exam - General 1994 Constitutional general appearance Hygiene/Attention to Grooming: good hygiene 07/23/2018 None Full Exam - General 1994 Eyes conjunctiva /eyelids Overall: conjunctiva clear 07/23/2018 None Full Exam - General 1994 Eyes conjunctiva /eyelids Overall: cornea clear 07/23/2018 None Full Exam - General 1994 Eyes conjunctiva /eyelids Overall: eyelids normal 07/23/2018 None Full Exam - General 1994 Eyes pupils and irises Overall: pupils equal, round, reactive to light and accomodation 07/23/2018 None Full Exam - General 1994 Ears/Nose/Throat external ear Overall: normal appearance 07/23/2018 None Full Exam - General 1994 Ears/Nose/Throat lips/teeth/gingiva Overall: benign lips 07/23/2018 None Full Exam - General 1994 Ears/Nose/Throat lips/teeth/gingiva Overall: normal dentition 07/23/2018 None Full Exam - General 1994 Ears/Nose/Throat oral cavity/pharynx/larynx Overall: oral mucosa clear 07/23/2018 None Full Exam - General 1994 Respiratory auscultation Overall: breath sounds clear bilaterally 07/23/2018 None Full Exam - General 1994 Respiratory respiratory effort/rhythm Overall: no retractions 07/23/2018 None Full Exam - General 1994 Respiratory respiratory effort/rhythm Overall: normal rate 07/23/2018 None Full Exam - General 1994 Cardiovascular extremities Overall: no clubbing 07/23/2018 None Full Exam - General 1994 Cardiovascular extremities Edema present: pitting 07/23/2018 None Full Exam - General 1994 Cardiovascular extremities Edema present: severity 1+ - 4 +: 1+ 07/23/2018 None Full Exam - General 1994 Cardiovascular auscultation of heart Rate: regular rate 07/23/2018 None Full Exam - General 1994 Cardiovascular auscultation of heart Murmur: previously known murmur unchanged 07/23/2018 None Full Exam - General 1994 Cardiovascular auscultation of heart Systolic murmur: holosystolic 07/23/2018 None Full Exam - General 1994 Cardiovascular auscultation of heart Systolic murmur grade: III/ 07/23/2018 None Full Exam - General 1994 Abdomen abdominal exam Overall: no tenderness 07/23/2018 None Full Exam - General 1994 Abdomen abdominal exam Overall: normal bowel sounds 07/23/2018 None Full Exam - General 1994 Musculoskeletal lower extremity Palpation - knee: crepitus 07/23/2018 None Full Exam - General 1994 Musculoskeletal gait and station Overall: normal gait 07/23/2018 None Full Exam - General 1994 Musculoskeletal gait and station Overall: normal station 07/23/2018 None Full Exam - General 1994 Musculoskeletal head and neck Overall: cervical spine benign 07/23/2018 None Full Exam - General 1994 Psychiatric orientation/consciousness Overall: oriented to person, place and time 07/23/2018 None Full Exam - General 1994 Psychiatric mood and affect Overall: normal mood and affect 07/23/2018 None Full Exam - General 1994 Constitutional general appearance Development: well developed 07/07/2018 None Full Exam - General 1994 Constitutional general appearance Development: appears stated age 1207/07/2018 None Full Exam - General 1994 Constitutional general appearance Hygiene/Attention to Grooming: good hygiene 07/07/2018 None Full Exam - General 1994 Eyes conjunctiva /eyelids Overall: conjunctiva clear 07/07/2018 None Full Exam - General 1994 Eyes conjunctiva /eyelids Overall: cornea clear 07/07/2018 None Full Exam - General 1994 Eyes conjunctiva /eyelids Overall: eyelids normal 07/07/2018 None Full Exam - General 1994 Eyes pupils and irises Overall: pupils equal, round, reactive to light and accomodation 07/07/2018 None Full Exam - General 1994 Ears/Nose/Throat external ear Overall: normal appearance 07/07/2018 None Full Exam - General 1994 Ears/Nose/Throat lips/teeth/gingiva Overall: benign lips 07/07/2018 None Full Exam - General 1994 Ears/Nose/Throat lips/teeth/gingiva Overall: normal dentition 07/07/2018 None Full Exam - General 1994 Ears/Nose/Throat oral cavity/pharynx/larynx Overall: oral mucosa clear 07/07/2018 None Full Exam - General 1994 Respiratory auscultation Overall: breath sounds clear bilaterally 07/07/2018 None Full Exam - General 1994 Respiratory respiratory effort/rhythm Overall: no retractions 07/07/2018 None Full Exam - General 1994 Respiratory respiratory effort/rhythm Overall: normal rate 07/07/2018 None Full Exam - General 1994 Cardiovascular extremities Overall: no clubbing 07/07/2018 None Full Exam - General 1994 Cardiovascular extremities Edema present: pitting 07/07/2018 None Full Exam - General 1994 Cardiovascular extremities Edema present: severity 1+ - 4 +: 1+ 07/07/2018 None Full Exam - General 1994 Cardiovascular auscultation of heart Rate: regular rate 07/07/2018 None Full Exam - General 1994 Cardiovascular auscultation of heart Murmur: previously known murmur unchanged 07/07/2018 None Full Exam - General 1994 Cardiovascular auscultation of heart Systolic murmur: holosystolic 07/07/2018 None Full Exam - General 1994 Cardiovascular auscultation of heart Systolic murmur grade: III/ 07/07/2018 None Full Exam - General 1994 Abdomen abdominal exam Overall: no tenderness 07/07/2018 None Full Exam - General 1994 Abdomen abdominal exam Overall: normal bowel sounds 07/07/2018 None Full Exam - General 1994 Musculoskeletal lower extremity Palpation - knee: crepitus 07/07/2018 None Full Exam - General 1994 Musculoskeletal gait and station Overall: normal gait 07/07/2018 None Full Exam - General 1994 Musculoskeletal gait and station Overall: normal station 07/07/2018 None Full Exam - General 1994 Musculoskeletal head and neck Overall: cervical spine benign 07/07/2018 None Full Exam - General 1994 Psychiatric orientation/consciousness Overall: oriented to person, place and time 07/07/2018 None Full Exam - General 1994 Psychiatric mood and affect Overall: normal mood and affect 07/07/2018 None Full Exam - General 1994 Constitutional general appearance Development: well developed 06/22/2018 None Full Exam - General 1994 Constitutional general appearance Development: appears stated age 1106/22/2018 None Full Exam - General 1994 Constitutional general appearance Hygiene/Attention to Grooming: good hygiene 06/22/2018 None Full Exam - General 1994 Eyes conjunctiva /eyelids Overall: conjunctiva clear 06/22/2018 None Full Exam - General 1994 Eyes conjunctiva /eyelids Overall: cornea clear 06/22/2018 None Full Exam - General 1994 Eyes conjunctiva /eyelids Overall: eyelids normal 06/22/2018 None Full Exam - General 1994 Eyes pupils and irises Overall: pupils equal, round, reactive to light and accomodation 06/22/2018 None Full Exam - General 1994 Ears/Nose/Throat external ear Overall: normal appearance 06/22/2018 None Full Exam - General 1994 Ears/Nose/Throat lips/teeth/gingiva Overall: benign lips 06/22/2018 None Full Exam - General 1994 Ears/Nose/Throat lips/teeth/gingiva Overall: normal dentition 06/22/2018 None Full Exam - General 1994 Ears/Nose/Throat oral cavity/pharynx/larynx Overall: oral mucosa clear 06/22/2018 None Full Exam - General 1994 Respiratory auscultation Overall: breath sounds clear bilaterally 06/22/2018 None Full Exam - General 1994 Respiratory respiratory effort/rhythm Overall: no retractions 06/22/2018 None Full Exam - General 1994 Respiratory respiratory effort/rhythm Overall: normal rate 06/22/2018 None Full Exam - General 1994 Cardiovascular extremities Overall: no clubbing 06/22/2018 None Full Exam - General 1994 Cardiovascular extremities Edema present: pitting 06/22/2018 None Full Exam - General 1994 Cardiovascular extremities Edema present: severity 1+ - 4 +: 1+ 06/22/2018 None Full Exam - General 1994 Cardiovascular auscultation of heart Rate: regular rate 06/22/2018 None Full Exam - General 1994 Cardiovascular auscultation of heart Murmur: previously known murmur unchanged 06/22/2018 None Full Exam - General 1994 Cardiovascular auscultation of heart Systolic murmur: holosystolic 06/22/2018 None Full Exam - General 1994 Cardiovascular auscultation of heart Systolic murmur grade: III/ 06/22/2018 None Full Exam - General 1994 Abdomen abdominal exam Overall: no tenderness 06/22/2018 None Full Exam - General 1994 Abdomen abdominal exam Overall: normal bowel sounds 06/22/2018 None Full Exam - General 1994 Musculoskeletal lower extremity Palpation - knee: crepitus 06/22/2018 None Full Exam - General 1994 Musculoskeletal gait and station Overall: normal gait 06/22/2018 None Full Exam - General 1994 Musculoskeletal gait and station Overall: normal station 06/22/2018 None Full Exam - General 1994 Musculoskeletal head and neck Overall: cervical spine benign 06/22/2018 None Full Exam - General 1994 Integument inspection of skin Location: right leg 06/22/2018 wound on right anterior leg Full Exam - General 1994 Psychiatric orientation/consciousness Overall: oriented to person, place and time 06/22/2018 None Full Exam - General 1994 Psychiatric mood and affect Overall: normal mood and affect 06/22/2018 None Full Exam - General 1994 Constitutional general appearance Development: well developed 05/25/2018 None Full Exam - General 1994 Constitutional general appearance Development: appears stated age 1005/25/2018 None Full Exam - General 1994 Constitutional general appearance Hygiene/Attention to Grooming: good hygiene 05/25/2018 None Full Exam - General 1994 Eyes conjunctiva /eyelids Overall: conjunctiva clear 05/25/2018 None Full Exam - General 1994 Eyes conjunctiva /eyelids Overall: cornea clear 05/25/2018 None Full Exam - General 1994 Eyes conjunctiva /eyelids Overall: eyelids normal 05/25/2018 None Full Exam - General 1994 Eyes pupils and irises Overall: pupils equal, round, reactive to light and accomodation 05/25/2018 None Full Exam - General 1994 Ears/Nose/Throat external ear Overall: normal appearance 05/25/2018 None Full Exam - General 1994 Ears/Nose/Throat lips/teeth/gingiva Overall: benign lips 05/25/2018 None Full Exam - General 1994 Ears/Nose/Throat lips/teeth/gingiva Overall: normal dentition 05/25/2018 None Full Exam - General 1994 Ears/Nose/Throat oral cavity/pharynx/larynx Overall: oral mucosa clear 05/25/2018 None Full Exam - General 1994 Respiratory auscultation Overall: breath sounds clear bilaterally 05/25/2018 None Full Exam - General 1994 Respiratory respiratory effort/rhythm Overall: no retractions 05/25/2018 None Full Exam - General 1994 Respiratory respiratory effort/rhythm Overall: normal rate 05/25/2018 None Full Exam - General 1994 Cardiovascular extremities Overall: no clubbing 05/25/2018 None Full Exam - General 1994 Cardiovascular extremities Edema present: pitting 05/25/2018 None Full Exam - General 1994 Cardiovascular extremities Edema present: severity 1+ - 4 +: 1+ 05/25/2018 None Full Exam - General 1994 Cardiovascular auscultation of heart Rate: regular rate 05/25/2018 None Full Exam - General 1994 Cardiovascular auscultation of heart Murmur: previously known murmur unchanged 05/25/2018 None Full Exam - General 1994 Cardiovascular auscultation of heart Systolic murmur: holosystolic 05/25/2018 None Full Exam - General 1994 Cardiovascular auscultation of heart Systolic murmur grade: III/ 05/25/2018 None Full Exam - General 1994 Abdomen abdominal exam Overall: no tenderness 05/25/2018 None Full Exam - General 1994 Abdomen abdominal exam Overall: normal bowel sounds 05/25/2018 None Full Exam - General 1994 Musculoskeletal lower extremity Palpation - knee: crepitus 05/25/2018 None Full Exam - General 1994 Musculoskeletal gait and station Overall: normal gait 05/25/2018 None Full Exam - General 1994 Musculoskeletal gait and station Overall: normal station 05/25/2018 None Full Exam - General 1994 Musculoskeletal head and neck Overall: cervical spine benign 05/25/2018 None Full Exam - General 1994 Psychiatric orientation/consciousness Overall: oriented to person, place and time 05/25/2018 None Full Exam - General 1994 Psychiatric mood and affect Overall: normal mood and affect 05/25/2018 None Full Exam - General 1994 Integument inspection of skin Location: right leg 05/25/2018 wound on right anterior leg Full Exam - General 1994 Constitutional general appearance Development: well developed 04/23/2018 None Full Exam - General 1994 Constitutional general appearance Development: appears stated age 0904/23/2018 None Full Exam - General 1994 Constitutional general appearance Hygiene/Attention to Grooming: good hygiene 04/23/2018 None Full Exam - General 1994 Eyes conjunctiva /eyelids Overall: conjunctiva clear 04/23/2018 None Full Exam - General 1994 Eyes conjunctiva /eyelids Overall: cornea clear 04/23/2018 None Full Exam - General 1994 Eyes conjunctiva /eyelids Overall: eyelids normal 04/23/2018 None Full Exam - General 1994 Eyes pupils and irises Overall: pupils equal, round, reactive to light and accomodation 04/23/2018 None Full Exam - General 1994 Ears/Nose/Throat external ear Overall: normal appearance 04/23/2018 None Full Exam - General 1994 Ears/Nose/Throat lips/teeth/gingiva Overall: benign lips 04/23/2018 None Full Exam - General 1994 Ears/Nose/Throat lips/teeth/gingiva Overall: normal dentition 04/23/2018 None Full Exam - General 1994 Ears/Nose/Throat oral cavity/pharynx/larynx Overall: oral mucosa clear 04/23/2018 None Full Exam - General 1994 Respiratory auscultation Overall: breath sounds clear bilaterally 04/23/2018 None Full Exam - General 1994 Respiratory respiratory effort/rhythm Overall: no retractions 04/23/2018 None Full Exam - General 1994 Respiratory respiratory effort/rhythm Overall: normal rate 04/23/2018 None Full Exam - General 1994 Cardiovascular extremities Overall: no clubbing 04/23/2018 None Full Exam - General 1994 Cardiovascular extremities Edema present: pitting 04/23/2018 None Full Exam - General 1994 Cardiovascular extremities Edema present: severity 1+ - 4 +: 1+ 04/23/2018 None Full Exam - General 1994 Cardiovascular auscultation of heart Rate: regular rate 04/23/2018 None Full Exam - General 1994 Cardiovascular auscultation of heart Murmur: previously known murmur unchanged 04/23/2018 None Full Exam - General 1994 Cardiovascular auscultation of heart Systolic murmur: holosystolic 04/23/2018 None Full Exam - General 1994 Cardiovascular auscultation of heart Systolic murmur grade: III/ 04/23/2018 None Full Exam - General 1994 Abdomen abdominal exam Overall: no tenderness 04/23/2018 None Full Exam - General 1994 Abdomen abdominal exam Overall: normal bowel sounds 04/23/2018 None Full Exam - General 1994 Musculoskeletal gait and station Overall: normal gait 04/23/2018 None Full Exam - General 1994 Musculoskeletal gait and station Overall: normal station 04/23/2018 None Full Exam - General 1994 Musculoskeletal head and neck Overall: cervical spine benign 04/23/2018 None Full Exam - General 1994 Psychiatric orientation/consciousness Overall: oriented to person, place and time 04/23/2018 None Full Exam - General 1994 Psychiatric mood and affect Overall: normal mood and affect 04/23/2018 None Full Exam - General 1994 Integument inspection of skin Location: left leg 04/23/2018 left lateral ankle - open wound - with granulation tissue present Full Exam - General 1994 Musculoskeletal lower extremity Palpation - knee: crepitus 04/23/2018 None Full Exam - General 1994 Neurologic cranial nerves Overall: crainial nerves 2 - 12 grossly intact 04/23/2018 None Full Exam - General 1994 Constitutional general appearance Development: well developed 04/01/2018 None Full Exam - General 1994 Constitutional general appearance Development: appears stated age 0804/01/2018 None Full Exam - General 1994 Constitutional general appearance Hygiene/Attention to Grooming: good hygiene 04/01/2018 None Full Exam - General 1994 Eyes conjunctiva /eyelids Overall: conjunctiva clear 04/01/2018 None Full Exam - General 1994 Eyes conjunctiva /eyelids Overall: cornea clear 04/01/2018 None Full Exam - General 1994 Eyes conjunctiva /eyelids Overall: eyelids normal 04/01/2018 None Full Exam - General 1994 Eyes pupils and irises Overall: pupils equal, round, reactive to light and accomodation 04/01/2018 None Full Exam - General 1994 Ears/Nose/Throat external ear Overall: normal appearance 04/01/2018 None Full Exam - General 1994 Ears/Nose/Throat lips/teeth/gingiva Overall: benign lips 04/01/2018 None Full Exam - General 1994 Ears/Nose/Throat lips/teeth/gingiva Overall: normal dentition 04/01/2018 None Full Exam - General 1994 Ears/Nose/Throat oral cavity/pharynx/larynx Overall: oral mucosa clear 04/01/2018 None Full Exam - General 1994 Respiratory auscultation Overall: breath sounds clear bilaterally 04/01/2018 None Full Exam - General 1994 Respiratory respiratory effort/rhythm Overall: no retractions 04/01/2018 None Full Exam - General 1994 Respiratory respiratory effort/rhythm Overall: normal rate 04/01/2018 None Full Exam - General 1994 Cardiovascular extremities Overall: no clubbing 04/01/2018 None Full Exam - General 1994 Cardiovascular extremities Edema present: pitting 04/01/2018 None Full Exam - General 1994 Cardiovascular extremities Edema present: severity 1+ - 4 +: 1+ 04/01/2018 None Full Exam - General 1994 Cardiovascular auscultation of heart Rate: regular rate 04/01/2018 None Full Exam - General 1994 Cardiovascular auscultation of heart Murmur: previously known murmur unchanged 04/01/2018 None Full Exam - General 1994 Cardiovascular auscultation of heart Systolic murmur: holosystolic 04/01/2018 None Full Exam - General 1994 Cardiovascular auscultation of heart Systolic murmur grade: III/ 04/01/2018 None Full Exam - General 1994 Abdomen abdominal exam Overall: no tenderness 04/01/2018 None Full Exam - General 1994 Abdomen abdominal exam Overall: normal bowel sounds 04/01/2018 None Full Exam - General 1994 Musculoskeletal gait and station Overall: normal gait 04/01/2018 None Full Exam - General 1994 Musculoskeletal gait and station Overall: normal station 04/01/2018 None Full Exam - General 1994 Musculoskeletal head and neck Overall: cervical spine benign 04/01/2018 None Full Exam - General 1994 Psychiatric orientation/consciousness Overall: oriented to person, place and time 04/01/2018 None Full Exam - General 1994 Psychiatric mood and affect Overall: normal mood and affect 04/01/2018 None Full Exam - General 1994 Constitutional [...] General 1994 Cardiovascular extremities Overall: no clubbing 03/09/2018 None [...] affect 10/29/2017 None Full Exam - General 1994 Constitutional general appearance Development: well developed 09/04/2017 None Full Exam - General 1994 [...] accomodation 09/04/2017 None Full Exam - General 1995 Ears/Nose/Throat external ear Overall: normal appearance 09/04/2017 None Full Exam - General 1995 Ears/Nose/Throat lips/teeth/gingiva Overall: benign lips 09/04/2017 None Full Exam - General 1995 Ears/Nose/Throat lips/teeth/gingiva Overall: normal dentition 09/04/2017 None [...] and telfa Full Exam - General 1994 Psychiatric orientation/consciousness Overall: oriented to person, place and time 09/04/2017 None Full Exam - General 1994 Psychiatric mood and affect Overall: normal mood and affect 09/04/2017 None Full Exam - General 1994 Cardiovascular extremities Overall: no clubbing 09/04/2017 None Full Exam - General 1994 Cardiovascular extremities Edema present: pitting 09/04/2017 None Full Exam - General 1994 [...] crepitus 12/05/2014 None Procedures Procedure Codes Date ADMIN INFLUENZA VIRUS VAC CPT-4: G0008 04/23/2018 FLU VACC PRSV FREE INC ANTIG CPT-4: 39781 04/23/2018 TRIAMCINOLONE ACET INJ NOS CPT-4: J3301 12/26/2017 ADMIN INFLUENZA VIRUS VAC CPT-4: G0008 04/16/2017 FLU VACC PRSV FREE INC ANTIG CPT-4: 71331 04/16/2017 TRIAMCINOLONE ACET INJ NOS CPT-4: J3301 11/16/2015 ROCEPHIN, PER 250 MG CPT-4: J0696 11/16/2015 Vital Signs Date Vital 11/11/2018 Blood Pressure 1: 102/66 Code : 8480-6 Heart Rate 1: 67 bpm Height: SpO2: 97% Weight: 11/04/2018 Blood Pressure 1: 118/54 Code : 8480-6 Heart Rate 1: 68 bpm Height: SpO2: 94% Weight: 10/21/2018 Blood Pressure 1: 122/56 Code : 8480-6 Heart Rate 1: 72 bpm Height: SpO2: 98% Temperature: 37.2 (C) / 98.9 (F) Weight: 09/23/2018 Blood Pressure 1: 120/60 Code : 8480-6 Heart Rate 1: 75 bpm Height: 5'1" SpO2: 93% Weight: 09/14/2018 Blood Pressure 1: 124/56 Code : 8480-6 Heart Rate 1: 80 bpm Height: SpO2: 95% Weight: 07/23/2018 Blood Pressure 1: 104/66 Code : 8480-6 Heart Rate 1: 74 bpm Height: 5'1" SpO2: 97% Weight: 07/07/2018 Blood Pressure 1: 112/70 Code : 8480-6 Heart Rate 1: 88 bpm Height: SpO2: 94% Temperature: 36.7 (C) / 98.1 (F) Weight: 06/22/2018 Blood Pressure 1: 108/64 Code : 8480-6 Heart Rate 1: 63 bpm Height: 5'1" SpO2: 98% Weight: 05/25/2018 Blood Pressure 1: 118/60 Code : 8480-6 BMI: 23.6 Code : 11590-2 Heart Rate 1 : 59 bpm Height: 5'1" Respiratory Rate: 18 bpm SpO2: 99% Temperature: 37.0 (C) / 98.6 (F ) Weight: 125 lbs 04/23/2018 Blood Pressure 2: 118/62 Code : 8480-6 BMI: 22.3 Code : 31294-2 Heart Rate 1 : 73 bpm Height: 5'1" SpO2: 97% Weight: 118 lbs 04/01/2018 Blood Pressure 1: 136/72 Code : 8480-6 BMI: 26.6 Code : 67009-3 Heart Rate 1 : 75 bpm Height: 5'1" SpO2: 98% Weight: 141 lbs 03/18/2018 Blood Pressure 1: 132/62 Code : 8480-6 Heart Rate 1: 61 bpm Height: 5'1" SpO2: 96% Weight: 03/09/2018 Blood Pressure 1: 122/60 Code : 8480-6 Heart Rate 1: 65 bpm Height: 5'1" SpO2: 98% Weight: 02/12/2018 Blood Pressure 1: 100/68 Code : 8480-6 BMI: 24.3 Code : 77813-5 Heart Rate 1 : 68 bpm Height: 5'1" SpO2: 96% Weight: 128 lbs 13 oz 12/26/2017 Blood Pressure 1: 126/68 Code : 8480-6 BMI: 26.7 Code : 12055-3 Heart Rate 1 : 66 bpm Height: 5'1" SpO2: 98% Temperature: 36.8 (C) / 98.2 (F) Weight: 141 lbs 8 oz 12/04/2017 Blood Pressure 1: 132/76 Code : 8480-6 BMI: 26.5 Code : 26707-6 Heart Rate 1 : 73 bpm Height: 5'1" SpO2: 96% Weight: 140 lbs 11/13/2017 Blood Pressure 1: 126/62 Code : 8480-6 Heart Rate 1: 69 bpm Height: 5'1" SpO2: 96% Weight: 11/06/2017 Blood Pressure 1: 142/84 Code : 8480-6 BMI: 25.7 Code : 49655-8 Heart Rate 1 : 78 bpm Height: 5'1" SpO2: 95% Temperature: 36.9 (C) / 98.5 (F) Weight: 136 lbs 10/29/2017 Blood Pressure 1: 132/68 Code : 8480-6 BMI: 26.8 Code : 66670-9 Heart Rate 1 : 70 bpm Height: 5'1" SpO2: 98% Weight: 142 lbs 09/04/2017 Blood Pressure 1: 132/74 Code : 8480-6 BMI: 25.9 Code : 89564-7 Heart Rate 1 : 68 bpm Height: 5'1" SpO2: 96% Weight: 137 lbs 08/08/2017 Blood Pressure 1: 118/72 Code : 8480-6 BMI: 26.6 Code : 84552-1 Heart Rate 1 : 68 bpm Height: 5'1" SpO2: 95% Weight: 141 lbs 05/29/2017 Blood Pressure 1: 142/78 Code : 8480-6 BMI: 26.3 Code : 72609-7 Heart Rate 1 : 65 bpm Height: 5'1" SpO2: 95% Weight: 139 lbs 04/16/2017 Blood Pressure 1: 136/62 Code : 8480-6 BMI: 27.4 Code : 79226-1 Heart Rate 1 : 38 bpm Height: 5'1" SpO2: 98% Weight: 145 lbs 02/10/2017 Blood Pressure 1: 124/70 Code : 8480-6 BMI: 27.4 Code : 31808-5 Heart Rate 1 : 70 bpm Height: 5'1" SpO2: 96% Weight: 145 lbs 01/21/2017 Blood Pressure 1: 120/70 Code : 8480-6 BMI: 27.2 Code : 31561-4 Heart Rate 1 : 65 bpm Height: 5'1" SpO2: 95% Weight: 144 lbs 12/18/2016 Blood Pressure 1: 122/74 Code : 8480-6 BMI: 27.4 Code : 72278-2 Heart Rate 1 : 66 bpm Height: 5'1" SpO2: 97% Weight: 145 lbs 08/26/2016 Blood Pressure 1: 110/64 Code : 8480-6 BMI: 28.0 Code : 31223-2 Heart Rate 1 : 67 bpm Height: 5'1" SpO2: 97% Weight: 148 lbs 02/27/2016 Blood Pressure 1: 126/74 Code : 8480-6 Heart Rate 1: 67 bpm Height: 5'1" SpO2: 97% 02/19/2016 Blood Pressure 1: 130/80 Code : 8480-6 BMI: 28.2 Code : 39353-4 Heart Rate 1 : 74 bpm Height: 5'1" SpO2: 96% Weight: 149 lbs 02/08/2016 Blood Pressure 1: 122/78 Code : 8480-6 BMI: 28.2 Code : 00678-9 Heart Rate 1 : 63 bpm Height: 5'1" SpO2: 96% Weight: 149 lbs 11/16/2015 Blood Pressure 1: 128/70 Code : 8480-6 BMI: 27.8 Code : 22830-2 Heart Rate 1 : 64 bpm Height: 5'1" SpO2: 97% Weight: 147 lbs 07/18/2015 Blood Pressure 1: 110/60 Code : 8480-6 BMI: 28.5 Code : 31403-6 Heart Rate 1 : 61 bpm Height: 5'1" SpO2: 97% Weight: 151 lbs 06/27/2015 Blood Pressure 1: 122/60 Code : 8480-6 BMI: 28.9 Code : 25515-5 Heart Rate 1 : 63 bpm Height: 5'1" SpO2: 95% Weight: 153 lbs 06/19/2015 Blood Pressure 1: 120/78 Code : 8480-6 Heart Rate 1: 68 bpm SpO2: 96% Weight: 154 lbs 04/03/2015 Blood Pressure 1: 128/68 Code : 8480-6 BMI: 29.1 Code : 28790-3 Heart Rate 1 : 70 bpm Height: 5'1" SpO2: 97% Weight: 154 lbs 02/27/2015 Blood Pressure 1: 122/84 Code : 8480-6 BMI: 29.5 Code : 38947-9 Heart Rate 1 : 67 bpm Height: 5'1" SpO2: 95% Weight: 156 lbs 01/26/2015 Blood Pressure 1: 132/70 Code : 8480-6 BMI: 30.2 Code : 66852-0 Heart Rate 1 : 76 bpm Height: 5'1" Weight: 160 lbs 01/16/2015 Blood Pressure 1: 140/70 Code : 8480-6 BMI: 30.0 Code : 31906-9 Heart Rate 1 : 78 bpm Height: 5'1" Respiratory Rate: 20 bpm Weight: 159 lbs 12/05/2014 Blood Pressure 1: 138/78 Code : 8480-6 BMI: 30.8 Code : 37397-1 Heart Rate 1 : 76 bpm Height: 5'1" Weight: 163 lbs Functional Status No Functional Status data History of Present Illness Symptom Name Status Result Effective Date Notes Location on the right 11/11/2018 None Location at the MP joint of the fifth toe 11/11/2018 None Quality dull pain 05/2019 None Location on the right 11/04/2018 None Location at the MP joint of the fifth toe 11/04/2018 None Quality dull pain 10/2018 None Quality chronic 10/21 None Quality primary hypertension 10/21/2018 None Quality stable 2018 None Onset and Resolution ongoing 10/21/2018 None Onset of Symptom during adulthood 10/21/2018 None Blood Pressure Values patient checking blood pressure at home - did not bring in readings 2018 -Checked at [facility] medication 10/21/2018 None Pertinent Findings edema 10/21/2018 None Quality chronic 10/21 None Quality improving None Onset and Resolution ongoing 10/21/2018 None Alleviating Factors medication 10/21/2018 None Location Denies on both legs 10/21/2018 None Location in the left eye 10/21/2018 None Quality acute 2018 None Quality burning 10/21 None Onset of Symptom 1 weeks ago 10/21/2018 None Pertinent Findings eye discharge 10/21/2018 None Onset and Resolution ongoing 10/21/2018 None Quality intermittent 10/21/2018 None Quality chronic 09/23 None Quality primary hypertension 09/23/2018 None Onset and Resolution ongoing 09/23/2018 None Onset of Symptom during adulthood 09/23/2018 None Alleviating Factors medication 09/23/2018 None Quality stable 2018 None Blood Pressure Values patient checking blood pressure at home - did not bring in readings 2018 -Checked at [facility] Pertinent Findings edema 09/23/2018 None Quality chronic 09/23 None Quality improving None Onset and Resolution ongoing 09/23/2018 None Alleviating Factors medication 09/23/2018 None Location Denies on both legs 09/23/2018 None Location in the left eye 09/23/2018 None Quality acute 2018 None Quality burning 09/23 None Onset and Resolution Denies sudden in onset 09/23/2018 None Onset of Symptom 1 weeks ago 09/23/2018 None Pertinent Findings eye discharge 09/23/2018 None Location in the throat 09/14/2018 None Onset and Resolution sudden in onset 09/14/2018 None Location on the abdomen 09/14/2018 None Location on both legs 09/14/2018 None Location on both ankles 09/14/2018 None Quality constant 06/2019 None Onset of Symptom Denies _ weeks ago 09/14/2018 None Location in the lung 07/23/2018 None Location in the throat 07/23/2018 None Quality acute 2017 None Quality productive None Onset of Symptom 3 weeks ago 07/23/2018 None Limitation on Activities moderately limits activities 07/23/2018 she was in bed for a few days Frequency of Episodes daily 07/23/2018 None Significant Medical Conditions cardiac disease 07/23/2018 None Triggers post nasal drip 07/23/2018 None Triggers ill contacts 07/23/2018 she is in a half-way Triggers recumbent position 07/23/2018 None Pertinent Findings Denies dyspnea 07/23/2018 None Pertinent Findings Denies fever 07/23/2018 None Onset and Resolution resolved 07/23/2018 None Onset and Resolution gradual in onset 07/23/2018 over the past few weeks - cough getting worse Location in the throat 07/07/2018 None Quality productive None Onset and Resolution gradual in onset 07/07/2018 None Onset of Symptom 3 weeks ago 07/07/2018 None Frequency of Episodes daily 07/07/2018 None Pertinent Findings Denies dyspnea 07/07/2018 None Pertinent Findings Denies fever 07/07/2018 None Location in the lung 07/07/2018 None Quality acute 2017 None Onset and Resolution gradual in onset 07/07/2018 over the past few weeks - cough getting worse Limitation on Activities moderately limits activities 07/07/2018 she was in bed for a few days Significant Medical Conditions cardiac disease 07/07/2018 None Triggers post nasal drip 07/07/2018 None Triggers ill contacts 07/07/2018 she is in a half-way Triggers recumbent position 07/07/2018 None Hospital Follow Up _ Other: edema, weakness 06/22/2018 None Hospital Follow Up Quality improving 06/22/2018 None Hospital Follow Up Quality chronic illness 06/22/2018 None Hospital Follow Up Alleviating Factors activity 06/22/2018 -therapy edema Quality improving 05/25/2018 None edema Quality painful 05/25/2018 None edema Onset and Resolution ongoing 05/25/2018 None edema Alleviating Factors medication 05/25/2018 None edema Location on both ankles 05/25/2018 None edema Location on both legs 05/25/2018 None edema Pertinent Findings limb pain / tenderness 05/25/2018 None hypertension Quality chronic 05/25/2018 None hypertension Quality primary hypertension 05/25/2018 None hypertension Onset and Resolution ongoing 05/25/2018 None hypertension Onset of Symptom during adulthood 05/25/2018 None hypertension Blood Pressure Values patient checking blood pressure at home - did not bring in readings 05/25/2018 None hypertension Alleviating Factors medication 05/25/2018 None cough Quality acute None cough Onset and Resolution sudden in onset 05/25/2018 None cough Quality productive 05/25/2018 None cough Quality intermittent 05/25/2018 None cough Quality worsening 05/25/2018 None cough Pertinent Findings Denies fever 05/25/2018 None cough Pertinent Findings sputum production 05/25/2018 None hypertension Quality stable 05/25/2018 None hypertension Quality primary hypertension 04/23/2018 None hypertension Onset and Resolution ongoing 04/23/2018 None hypertension Onset of Symptom during adulthood 04/23/2018 None hypertension Quality chronic 04/23/2018 None hypertension Alleviating Factors medication 04/23/2018 None edema Quality improving 04/23/2018 None edema Quality painful 04/23/2018 None edema Onset and Resolution ongoing 04/23/2018 None edema Alleviating Factors medication 04/23/2018 None edema Location on both ankles 04/23/2018 None edema Location on both legs 04/23/2018 None edema Pertinent Findings limb pain / tenderness 04/23/2018 None hypertension Blood Pressure Values patient checking blood pressure at home - did not bring in readings 04/23/2018 None edema Quality painful 04/01/2018 None edema Onset and Resolution ongoing 04/01/2018 None edema Alleviating Factors medication 04/01/2018 None edema Location on both ankles 04/01/2018 None edema Location on both legs 04/01/2018 None edema Quality worsening 04/01/2018 None edema Pertinent Findings limb pain / tenderness 04/01/2018 None edema Quality improving 03/18/2018 None edema Quality painful 03/18/2018 at times edema Onset and Resolution ongoing 03/18/2018 None edema Alleviating Factors medication 03/18/2018 None edema Location on both ankles 03/18/2018 None edema Location on both legs 03/18/2018 None Hospital Follow Up _ pneumonia 03/09/2018 None [...] data Encounters Encounter Performer Location Codes Date EST. PATIENT, LEVEL III Diagnosis: Laceration without foreign body, right foot, subsequent encounter[ ICD10: S91.311D] [facility] CPT-4: 56789 11/11/2018 [id number] EST. PATIENT, LEVEL III Diagnosis: Laceration without foreign body, right foot, initial encounter[ICD10 : S91.311A] [facility] CPT-4: 24038 10/2018 ([id number]) 32445 EST. 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 PATIENT, LEVEL IV Diagnosis: Essential (primary) hypertension[ICD10: I10] Diagnosis: Localized edema[ICD10: R60.0] Diagnosis: Atrophy of thyroid (acquired)[ICD10: E03.4] Alexandria Barron MD, [facility] CPT-4: 09218 09/23/2018 62933 EST. PATIENT, LEVEL III Diagnosis: Essential (primary) hypertension[ICD10: I10] Diagnosis: Localized edema[ICD10: R60.0] Светлана Barron MD, [facility] CPT-4 : 94902 09/14/2018 ([id number]) 66848 EST. PATIENT, LEVEL IV Diagnosis: Essential (primary) hypertension[ICD10: I10] Diagnosis: Lymphedema, not elsewhere classified[ICD10: I89.0] Diagnosis: Other ascites[ICD10: R18.8] Alexandria Barron MD, [facility] CPT- 4: 00359 07/23/2018 ([id number]) 39817 EST. PATIENT, LEVEL IV Diagnosis: Essential (primary) hypertension[ICD10: I10] Diagnosis: Atrophy of thyroid (acquired)[ICD10: E03.4] Diagnosis: Lymphedema, not elsewhere classified[ICD10: I89.0] Alexandria Barron MD, [facility] CPT-4: 94393 07/07/2018 ([id number]) 20579 EST. PATIENT, LEVEL IV Diagnosis: Essential (primary) hypertension[ICD10: I10] Diagnosis: Localized edema[ICD10: R60.0] Alexandria Barron MD, [facility] CPT- 4: 62796 06/22/2018 ([id number]) 65361 EST. PATIENT, LEVEL IV Diagnosis: Atrophy of thyroid (acquired)[ICD10: E03.4] Diagnosis: Essential (primary) hypertension[ICD10: I10] Diagnosis: Other chronic pain[ICD10: G89.29] Diagnosis: Pain in left knee[ICD10: M25.562] Diagnosis: Low back pain[ICD10: M54.5] [facility] CPT- 4: 17453 05/25/2018 ([id number]) 78993 EST. 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 PATIENT, LEVEL IV Diagnosis: Essential (primary) hypertension[ICD10: I10] Diagnosis: Low back pain[ICD10: M54.5] Diagnosis: Localized edema[ICD10: R60.0] Diagnosis: Other chronic pain[ICD10: G89.29] Diagnosis: Obstructive sleep apnea (adult) (pediatric)[ICD10: G47.33] [facility] CPT-4: 37923 04/01/2018 ([id number]) 87231 EST. PATIENT, LEVEL IV Diagnosis: Essential (primary) hypertension[ICD10: I10] Diagnosis: Other chronic pain[ICD10: G89.29] Diagnosis: Unsteadiness on feet[ICD10: R26.81] [facility] CPT-4: 47208 03/18/2018 ([id number]) 71311 EST. PATIENT, LEVEL IV Diagnosis: Low back pain[ICD10: M54.5] Diagnosis: Localized edema[ICD10: R60.0] Diagnosis: Essential (primary) hypertension[ICD10: I10] Diagnosis: Other chronic pain[ICD10: G89.29] Diagnosis: Pressure ulcer of left buttock, stage 1[ICD10: L89.321] Diagnosis: Obstructive sleep apnea (adult) (pediatric)[ICD10: G47.33] [facility] CPT-4: 44568 03/09/2018 ([id number]) 43514 EST. PATIENT, LEVEL IV Diagnosis: Atrophy of thyroid (acquired)[ICD10: E03.4] Diagnosis: Essential (primary) hypertension[ICD10: I10] Diagnosis: Localized edema[ICD10: R60.0] Diagnosis: Other chronic pain[ICD10: G89.29] Alexandria Barron MD, [facility] CPT-4: 37003 02/12/2018 ([id number]) 10132 EST. PATIENT, LEVEL III Diagnosis: Cough[ICD10: R05] Diagnosis: Acute bronchitis, unspecified[ICD10: J20.9] Sandra Barron MD, [facility] CPT-4: 08056 12/26/2017 ([id number]) 79118 EST. PATIENT, LEVEL IV Diagnosis: Essential (primary) hypertension[ICD10: I10] Diagnosis: Other specified noninfective disorders of lymphatic vessels and lymph nodes[ICD10: I89.8] Diagnosis: Atrophy of thyroid (acquired)[ICD10: E03.4] Alexandria Barron MD, [facility] CPT-4: 86395 12/04/2017 21239 EST. PATIENT, LEVEL III Diagnosis: Candidiasis of skin and nail[ICD10: B37.2] Светлана Barron MD, [facility] CPT-4: 85044 11/13/2017 ([id number]) 18516 EST. PATIENT, LEVEL III Diagnosis: Lymphedema, not elsewhere classified[ICD10: I89.0] Diagnosis: Low back pain[ICD10: M54.5] Diagnosis: Localized edema[ICD10: R60.0] Alexandria Barron MD, [facility] CPT- 4: 44292 11/06/2017 ([id number]) Miscellaneous no charge Diagnosis: Localized edema[ICD10: R60.0] Diagnosis: Cellulitis of right lower limb[ICD10: L03.115] Diagnosis: Cellulitis of left lower limb[ICD10: L03.116] Светлана Barron MD, [facility] CPT-4: 11672 11/03/2017 16782 EST. PATIENT, LEVEL III Diagnosis: Cellulitis of left lower limb[ICD10: L03.116] Diagnosis: Localized edema[ICD10: R60.0] Светлана Barron MD, [facility] CPT-4 : 73024 10/29/2017 ([id number]) 55181 EST. PATIENT, LEVEL IV Diagnosis: Essential (primary) hypertension[ICD10: I10] Diagnosis: Atrophy of thyroid (acquired)[ICD10: E03.4] Diagnosis: Pain in left knee[ICD10: M25.562] Diagnosis: Stiffness of left hand, not elsewhere classified[ICD10: M25.642] Diagnosis: Stiffness of right hand, not elsewhere classified[ICD10: M25.641] Alexandria Barron MD, [facility] CPT-4: 79234 09/04/2017 ([id number]) 17895 EST. PATIENT, LEVEL III Diagnosis: Other viral warts[ICD10: B07.8] Diagnosis: Other skin changes[ICD10: R23.8] Alexandria Barron MD, [facility] CPT-4: 74141 08/08/2017 ([id number]) 79224 EST. PATIENT, LEVEL IV Diagnosis: Essential (primary) hypertension[ICD10: I10] Diagnosis: Atrophy of thyroid (acquired)[ICD10: E03.4] Diagnosis: Low back pain[ICD10: M54.5] Alexandria Barron MD, [facility] CPT- 4: 39858 05/29/2017 ([id number]) 32030 EST. PATIENT, LEVEL IV Diagnosis: Essential (primary) hypertension[ICD10: I10] Diagnosis: Atrophy of thyroid (acquired)[ICD10: E03.4] Diagnosis: Encounter for immunization[ICD10: Z23] Diagnosis: Sick sinus syndrome[ICD10: I49.5] Alexandria Barron MD, [facility] CPT-4: 28359 04/16/2017 ([id number]) Miscellaneous no charge Diagnosis: Cellulitis of left lower limb[ICD10: L03.116] Светлана Barron MD, [facility] CPT-4: 82826 02/24/2017 13293 EST. PATIENT, LEVEL III Diagnosis: Cellulitis of left lower limb[ICD10: L03.116] Diagnosis: Cellulitis of right lower limb[ICD10: L03.115] Светлана Barron MD, [facility] CPT-4: 46793 02/10/2017 ([id number]) 14773 EST. PATIENT, LEVEL IV Diagnosis: Essential (primary) hypertension[ICD10: I10] Diagnosis: Other abnormal glucose[ICD10: R73.09] Diagnosis: Localized edema[ICD10: R60.0] Alexandria Barron MD, [facility] CPT- 4: 57546 01/21/2017 22347 EST. PATIENT, LEVEL IV Diagnosis: Essential (primary) hypertension[ICD10: I10] Diagnosis: Pain in left knee[ICD10: M25.562] Diagnosis: Atrophy of thyroid (acquired)[ICD10: E03.4] Alexandria Barron MD, [facility] CPT-4: 68229 12/18/2016 ([id number]) 16260 EST. PATIENT, LEVEL IV Diagnosis: Essential (primary) hypertension[ICD10: I10] Diagnosis: Pain in left knee[ICD10: M25.562] Diagnosis: Other instability, left knee[ICD10: M25.362] Diagnosis: Other chronic pain[ICD10: G89.29] Alexandria Barron MD, [facility] CPT-4: 63501 08/26/2016 ([id number]) 26205 EST. PATIENT, LEVEL III Diagnosis: Localized edema[ICD10: R60.0] Sandra Barron MD, [facility] CPT-4: 32074 02/27/2016 ([id number]) Miscellaneous no charge Diagnosis: Lymphedema, not elsewhere classified[ICD10: I89.0] Sandra Barron MD, [facility] CPT-4: 69575 02/20/2016 ([id number]) 02586 EST. PATIENT, LEVEL III Diagnosis: Contusion of left lower leg, subsequent encounter[ICD10: S80.12XD] Diagnosis: Abrasion of scalp, subsequent encounter[ICD10: S00.01XD] Diagnosis: Laceration without foreign body of left upper arm, subsequent encounter[ICD10: S41.112D] Diagnosis: Localized edema[ICD10: R60.0] Sandra Barron MD, [facility] CPT-4: 65870 02/19/2016 ([id number]) Miscellaneous no charge Diagnosis: Laceration without foreign body of left upper arm, subsequent encounter[ICD10: S41.112D] Diagnosis: Abrasion of scalp, subsequent encounter[ICD10: S00.01XD] Sandra Barron MD , [facility] CPT-4: 03956 02/12/2016 ([id number]) 19143 EST. PATIENT, LEVEL IV Diagnosis: Contusion of left lower leg, initial encounter[ICD10: S80.12XA] Diagnosis: Abrasion of scalp, initial encounter[ICD10: S00.01XA] Diagnosis: Laceration without foreign body of left upper arm, initial encounter[ ICD10: S41.112A] Diagnosis: Localized edema[ICD10: R60.0] Diagnosis: Hypothyroidism, unspecified[ICD10: E03.9] Diagnosis: Essential (primary) hypertension[ICD10: I10] Alexandria Barron MD, [facility] CPT-4: 09389 02/08/2016 ([id number]) 01925 EST. PATIENT, LEVEL IV Diagnosis: Cough[ICD10: R05] Diagnosis: Low back pain[ICD10: M54.5] Diagnosis: Allergic rhinitis due to pollen[ICD10: J30.1] Diagnosis: Acute upper respiratory infection, unspecified[ICD10: J06.9] Diagnosis: Acute bronchitis, unspecified[ICD10: J20.9] Sandra Barron MD, [facility] CPT-4: 31263 11/16/2015 ([id number]) 78184 EST. PATIENT, LEVEL IV Diagnosis: Hypothyroidism, unspecified[ICD10: E03.9] Diagnosis: Lymphedema, not elsewhere classified[ICD10: I89.0] Alexandria Barron MD, [facility] CPT-4: 97836 07/18/2015 65048 EST. PATIENT, LEVEL IV Diagnosis: Contusion of left lower leg, subsequent encounter[ICD10: S80.12XD] Diagnosis: Cellulitis of left lower limb[ICD10: L03.116] Светлана Barron MD, [facility] CPT-4: 12742 06/27/2015 55598 EST. PATIENT, LEVEL III Diagnosis: Contusion of left lower leg, initial encounter[ICD10: S80.12XA] Diagnosis: Cellulitis of left lower limb[ICD10: L03.116] Светлана Barron MD, [facility] CPT-4: 59356 06/19/2015 ([id number]) 52912 EST. 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 PATIENT, LEVEL III Diagnosis: Rosacea, acne[ICD9: 695.3] Diagnosis: Lymphedema[ICD9: 457.1] Sandra Barron MD, [facility] CPT-4: 51597 02/27/2015 ([id number]) 48153 EST. PATIENT, LEVEL III Diagnosis: Right leg swelling[ICD9: 729.81] Alexandria Barron MD, [facility] CPT-4: 46152 01/26/2015 ([id number]) 79533 EST. PATIENT, LEVEL III Diagnosis: CELLULITIS OF LEG[ICD9: 682.6] Mary Ann Barron MD, [facility] CPT-4 : 94137 01/16/2015 ([id number]) OFFICE VISIT, NEW - LEVEL 4 Diagnosis: Back pain[ICD9: 724.5] Diagnosis: Lymphedema[ICD9: 457.1] Diagnosis: Sacroiliitis[ICD9: 720.2] Diagnosis: Chronic pain[ICD9: 338.29] Diagnosis: HYPOTHYROIDISM[ICD9: 244.9] Diagnosis: Dysphagia[ICD9: 787.20] Alexandria Barron MD, [facility] CPT-4: 91879 12/05/2014 Plan of Care Planned Activity Notes Codes Status Date Visit Plan: Skin tear to right 5th toe - improving - Wound Instructions - Pt was instructed to keep the wound clean, wash with antibacterial soap, use triple antibiotic ointment, call if redness, pustular drainage, or any other acute concerns. 11/11/2018 Patient Education: Patient Medication Summary Completed 11/11/2018 Visit Plan: Skin tear to right 5th toe - Dr. Barron in to evaluate patient - Wound Instructions - Pt was instructed to keep the wound clean, wash with antibacterial soap, use triple antibiotic ointment, call if redness, pustular drainage, or any other acute concerns. 11/04/2018 Appointment: [facility]ветлана [facility]iatel[facility] ([facility] min) Complex 11/04/2018 Patient Education: Patient Medication Summary Completed 11/04/2018 Visit Plan: Hypertension - well controlled - continue with current medications, continue with no added salt diet. Pt has been encouraged to exercise daily. The pt has been advised to call the office if there are any acute concerns about change in blood pressure readings at home. Chronic Back pain -pt to have medication decreased from 7.5mg bid to 5mg bid and may have an additional 5mg at noon if needed for uncontrolled symptoms. Cirrhosis - progressive with weight loss and constant edema - discussed with pt - I think that she needs to start on hospice as this is non-recoverable. Conjunctivitis - rx for gentamycin sent to the pharmacy- order written on pt's chart. Exposure to the flu - rx for tamiflu 75mg daily x 10 days. 10/21/2018 Appointment: Alexandria Barron WPtel: [facility] (15 min) Moderate 10/21/2018 Patient Education: Patient Medication Summary Completed 10/21/2018 Patient Education: Back Pain Completed 10/21/2018 Visit Plan: Hypertension - well controlled - [...] directed otherwise. Check labs at regular intervals q 3 months or q 6 months based on previous levels of control. Edema - improved with lymphedema compression wraps. 09/23/2018 Appointment: Alexandria Barron WPtel: [facility] (15 min) Moderate 09/23/2018 Patient Education: Patient Medication Summary Completed 09/23/2018 Visit Plan: Edema - pt has been advised to elevate legs to prevent dependent edema, compression has been recommended to help to naturally decrease peripheral edema. Diuretic use has been discussed and pt has been instructed in appropriate use of such medication as necessary to further attempt to reduce peripheral edema. Hypertension - The patient has been counseled to cut back on salt in diet for a no added salt diet, low fat diet, start an exercise program with low weight bearing exercises and higher aerobic activity for heart health. The patient is to check blood pressure readings as an outpatient and either fax, call, or email the readings to the office next week for practitioner to review. The pt is to call for acute concerns. 09/14/2018 Appointment: Светлана Garcia [phone] [facility] ([facility] min) Complex 09/14/2018 Patient Education: Patient Medication Summary Completed 09/14/2018 Visit Plan: Hypertension - well controlled - continue with current medications, continue with no added salt diet. Pt has been encouraged to exercise daily. The pt has been advised to call the office if there are any acute concerns about change in blood pressure readings at home. Abdominal ascites - abdomen is quite full, I have recommended that she needs to have paracentesis - I have talked to Dr. Salazar in radiology - he will have pt come to the department tomorrow morning for a paracentesis. Lymphedema - continue with compression 07/23/2018 Appointment: Alexandria Barron WPtel: [phone] [facility] (15 min) Moderate 07/23/2018 Patient Education: Patient Medication Summary Completed 07/23/2018 Care Plan: Cbc With Differential Pending 07/23/2018 Care Plan: Comp Metabolic Pending 07/23/2018 Care Plan: Magnesium Pending 07/23/2018 Visit Plan: Hypertension - well controlled - [...] directed otherwise. Check labs at regular intervals q 3 months or q 6 months based on previous levels of control. Lymphedema - continue with compression, elevate lower extremities while seated. 07/07/2018 Appointment: Alexandria Barron WPtel: [address] [facility] (15 min) Moderate 07/07/2018 Patient Education: Patient Medication Summary Completed 07/07/2018 Visit Plan: Hypertension - well controlled - [...] to further attempt to reduce peripheral edema. 06/22/2018 Appointment: Alexandria Barron WPtel: [phone] [facility] (15 min) Moderate 06/22/2018 Patient Education: Patient Medication Summary Completed 06/22/2018 Appointment: Alexandria Barron WPtel: [phone] [facility] (15 min) Moderate 05/27/2018 Visit Plan: Hypertension - well controlled - continue with current medications, continue with no added salt diet. Pt has been encouraged to continue with increased activity. The pt has been advised to call the office if there are any acute concerns about change in blood pressure readings at home. Hypothyroidism - pt with chronic hypothyroidism, continue with current medication, check labs. Lymphedema - recommended continued compression wrap for bilateral lower legs. Recommended patient to keep legs elevated when seated. Chronic Pain Syndrome - pt has chronic pain - has been maintained on current medications, has not sought out other medications, only uses PRN pain medications as directed, and understands the consequences of over-medication. 05/25/2018 Appointment: Alexandria Barron WPtel: [phone] [facility] (15 min) Moderate 05/25/2018 Patient Education: Patient Medication Summary Completed 05/25/2018 Patient Education: Back Pain Completed 05/25/2018 Appointment: Светлана Garcia WPtel: [phone] [facility] (30 min) Complex 05/15/2018 Visit Plan: Hypertension - well controlled - continue with current medications, continue with no added salt diet. Pt has been encouraged to continue with increased activity. The pt has been advised to call the office if there are any acute concerns about change in blood pressure readings at home. Hypothyroidism - pt with chronic hypothyroidism, continue with current medication, check labs. Lymphedema - recommended continued compression wrap for bilateral lower legs. Recommended patient to keep legs elevated when seated. Pt has had significant weight loss in the past month of over 28 pounds, monitor symptoms. Hold off on use of lasix unless pt has gained over 3 pounds in 48 hours. Chronic Pain Syndrome - pt has chronic pain - has been maintained on current medications, has not sought out other medications, only uses PRN pain medications as directed, and understands the consequences of over-medication. The pt has multiple comorbid conditions - i have recommended that she has high dose flu shot today in clinic. 04/23/2018 Visit Plan: Hypertension - well controlled - continue with current medications, continue with no added salt diet. Pt has been encouraged to continue with increased activity. The pt has been advised to call the office if there are any acute concerns about change in blood pressure readings at home. Hypothyroidism - pt with chronic hypothyroidism, continue with current medication, check labs. Lymphedema - recommended continued compression wrap for bilateral lower legs. Recommended patient to keep legs elevated when seated. Pt has had significant weight loss in the past month of over 28 pounds, monitor symptoms. Hold off on use of lasix unless pt has gained over 3 pounds in 48 hours. Chronic Pain Syndrome - pt has chronic pain - has been maintained on current medications, has not sought out other medications, only uses PRN pain medications as directed, and understands the consequences of over-medication. The pt has multiple comorbid conditions - i have recommended that she has high dose flu shot today in clinic. 04/23/2018 Appointment: Alexandria Barron WPtel: [address] [place], [place] [id number] (15 min) Moderate 04/23/2018 Patient Education: Patient Medication Summary Completed 04/23/2018 Patient Education: Patient Medication Summary Completed 04/23/2018 Patient Education: Back Pain Completed 04/23/2018 Visit Plan: Hypertension - well controlled - continue with current medications, continue with no added salt diet. Pt has been encouraged to exercise daily. The pt has been advised to call the office if there are any acute concerns about change in blood pressure readings at home. Lymphedema bilateral lower extremities - recommendation for pt to take lasix 40mg daily x 1 week and take 1 potassium daily with the lasix then use only as needed if you gain more than 3 pounds in 48 hours. Low back pain/chronic pain syndrome - recommended pt to continue with chronic oxycodone use - monitor symptoms. Sleep apnea - continue with CPAP - stop oxygen per pt request. 04/01/2018 Appointment: Alexandria Barron WPtel: [facility] (15 min) Moderate 04/01/2018 Patient Education: Patient Medication Summary Completed 04/01/2018 Visit Plan: Hypertension - well controlled - continue with current medications, continue with no added salt diet. Pt has been encouraged to exercise daily. The pt has been advised to call the office if there are any acute concerns about change in blood pressure readings at home. Chronic pain - continue with the oxycodone at 5mg qid - pain improved with appropriate administration of the medication in a timely fashion. Edema - chronic - improved with compression wraps and elevation. Unsteady on Feet - improved with physical therapy. I have recommended that she will likely be able to be discharged to home early next week as long as her home evaluation goes well. 03/18/2018 Appointment: Alexandria Barron WPtel: [facility] (15 min) Moderate 03/18/2018 Patient Education: Patient Medication Summary Completed 03/18/2018 Visit Plan: Chronic pain - continue with [...] on buttock. 03/09/2018 Appointment: Alexandria Barron WPtel: [facility] (15 min) Moderate 03/09/2018 Patient Education: Patient [...] her report. 02/12/2018 Appointment: Alexandria Barron WPtel: [facility] (15 min) Moderate 02/12/2018 Patient Education: Patient Medication Summary Completed 02/12/2018 Visit Plan: Bronchitis- Pt advised to increase fluids, vitamin C. Discussed natural and expected course of this diagnosis and need to alert me if symptoms do not follow expected course, or if any worse. RX sent to patient's pharmacy. 12/26/2017 Appointment: Sandra Mcdonald WPtel: [phone] [place] (15 min) Moderate 12/26/2017 Patient Education: [...] seated. 12/04/2017 Appointment: Alexandria Barron WPtel: [address] [facility] (30 min) Complex 12/04/2017 Patient Education: Patient Medication Summary Completed 12/04/2017 Visit Plan: Yeast rash - The patient was instructed in appropriate care. The patient was instructed to use the ointment as per RX. The patient is to call for any change in symptoms, increase in size of the lesion, increase in pain, worsening redness, warmth, discharge. 11/13/2017 Appointment: Светлана Garcia WPtel: [address] [facility] (30 min) Complex 11/13/2017 Patient Education: Patient [...] care. 11/06/2017 Appointment: Alexandria Barron WPtel: [address] [facility] [address] (30 min) Complex 11/06/2017 Patient Education: Patient [...] peripheral edema. 10/29/2017 App[facility]ment: [facility]лан[facility] (15 min) Moderate 10/29/2017 Patient Education: Patient [...] pennsaid sample 09/04/2017 Appointment: Alexandria Barron WPtel: [address] [facility] [address] (15 min) Moderate 09/04/2017 Patient Education: Patient Medication Summary Completed 09/04/2017 Appointment: Светлана [facility] (15 min) Moderate 08/18/2017 Visit Plan: Skin lesion on face - lesion removed with scalpel and dressed with medihoney, pt to RTC in 10 days for treatment of the lesion if not fully resolved. 08/08/2017 Appointment: Alexandria Barron WPtel: [address] [facility] [address] (30 min) Complex 08/08/2017 Patient Education: Patient [...] over- medication. 05/29/2017 Appointment: Alexandria Barron WPtel: [address] [facility] (15 min) Moderate 05/29/2017 Patient Education: Patient Medication Summary Completed 05/29/2017 Appointment: Alexandria Barron WPtel: [address] [facility] (15 min) Moderate 04/30/2017 Referral: Alberta Wilks [address] [place], [place] [id number] Patient informed. Referral info faxed. Completed 04/28/2017 [...] of control. 04/16/2017 Appointment: Alexandria Barron WPtel: [facility] (15 min) Moderate 04/16/2017 Patient Education: Patient Medication Summary Completed 04/16/2017 Care Plan: Referral Order SNOMED-CT : [id number] Pending 04/16/2017 Visit Plan: Wound healed - no further treatment at this time. 02/24/2017 Appointment: Nurse Visit 02/24/2017 Patient Education: Patient Medication Summary Completed 02/24/2017 Appointment: Nurse Visit 02/18/2017 Appointment: Светлана Garcia WPtel: [facility] (30 min) Complex 02/14/2017 Visit Plan: Cellulitis - The patient was instructed in appropriate wound care. The patient was instructed to use the antibiotic as per RX. The patient is to call for any change in symptoms, increase in size of the lesion, increase in pain, worsening redness, warmth, discharge. 02/10/2017 Appointment: Светлана Garcia WPtel: [address] [facility] (30 min) Complex 02/10/2017 Patient Education: Patient [...] chocolate intake. 01/21/2017 Appointment: Alexandria Barron WPtel: [address] [facility]6[address] (15 min) Moderate 01/21/2017 Patient Education: Patient [...] not improving. 12/18/2016 Appointment: Alexandria Barron WPtel: [address] [facility]6[address] (15 min) Moderate 12/18/2016 Patient Education: Patient [...] to specialist 08/26/2016 Appointment: Alexandria Barron WPtel: [address] [facility] (15 min) Moderate 08/26/2016 Patient Education: Patient Medication Summary Completed 08/26/2016 Care Plan: Referral Order SNOMED-CT : [id number] Pending 08/26/2016 Appointment: Sandra Mcdonald WPtel: [phone] (30 min) Complex 03/11/2016 Visit Plan: Edema - improved-pt has been advised to elevate legs to prevent dependent edema, compression has been recommended to help to naturally decrease peripheral edema. Diuretic use has been discussed and pt has been instructed in appropriate use of such medication as necessary to further attempt to reduce peripheral edema. 02/27/2016 Appointment: Sandra Mcdonald WPtel: [phone] (30 min) Complex 02/27/2016 Patient Education: Patient Medication Summary Completed 02/27/2016 Appointment: Nurse Visit 02/20/2016 Patient Education: Patient Medication Summary Completed 02/20/2016 Visit Plan: Abrasion of scalp-healing well-continue wound care as directed Laceration left arm-healing well-continue wound care-may leave open to air Contusion of left exo-ndkxehygr-gyxytzvb to monitor Edema-elevate legs-follow up tomorrow for quick check of swelling 02/19/2016 Appointment: Sandra Mcdonald WPtel: [address] [phone] [place] (15 min) Moderate 02/19/2016 Patient Education: Patient [...] peripheral edema. 02/08/2016 Appointment: Alexandria Barron WPtel: [facility] (15 min) Moderate 02/08/2016 Patient Education: Patient [...] of swelling. 07/18/2015 Appointment: Alexandria Barron WPtel: [address] [facility] (15 min) Moderate 07/18/2015 Patient Education: Patient [...] not improving. 04/03/2015 Appointment: Alexandria Barron WPtel: [address] [facility] (15 min) Moderate 04/03/2015 Patient Education: Patient Medication Summary Completed 04/03/2015 Visit Plan: Rosacea-continue finacea as directed-add metronidazole cream twice daily-call if symptoms do not improve or if any worse. Arcqmzdiov-zniskdg-haliqhfq with wraps-no change in treatment 02/27/2015 Appointment: [...] for EGD. 12/05/2014 Appointment: Alexandria Barron WPtel: [facility] [place] ([place]) New Patient 12/05/2014 Patient Education: Patient Medication Summary Completed 12/05/2014 Patient Education: Hypertension Completed 12/05/2014 Referral: Jose A Rios Referral Appointment Requested Referral: Alberta Wilks [address] [place], [place] [address] [place] Referral Appointment Requested Referral: Amarjit Veronicatel: [facility] Referral Appointment Requested Referral: Jayro Wetzel WPtel: Referral Appointment Requested Instructions Comment . Wound healed - no further treatment at this time. . Cellulitis - continue with oral antibiotics [...] to further attempt to reduce peripheral edema. VENOUS DOPPLER RIGHT LEG . Right leg swelling-significantly more than left-plan for venous doppler- continued compression-elevated as much as possible. Patient verbalized understanding of plan. . Cellulitis - The pt states that [...] increase in pain, or other concerns. . Hypertension - well controlled - continue [...] Knee pain - referral to specialist . Rosacea-continue finacea as directed-add metronidazole cream twice daily-call if symptoms do not improve or if any worse. Busqqgzfhj-coxbyhy-lzntrjxb with wraps-no change in treatment . Left lower leg injury - The [...] lesion, increase in pain, or other concerns. Pneumovax - pneumonia shot - you had [...] continued elevation and monitoring of swelling. . Chronic pain - continue with the [...] ulcer on buttock - Calmoseptine on buttock. . Hypertension - well controlled - continue [...] and left finger stiffness - pennsaid sample zpack rocephin and kenalog injection today in [...] salt diet. Pt has been encouraged to continue with increased activity. The pt has been advised to call the office if there are any acute concerns about change in blood pressure readings at home. Hypothyroidism - pt with chronic hypothyroidism, continue with current medication, check labs. Lymphedema - recommended continued compression wrap for bilateral lower legs. Recommended patient to keep legs elevated when seated. Pt has had significant weight loss in the past month of over 28 pounds, monitor symptoms. Hold off on use of lasix unless pt has gained over 3 pounds in 48 hours. Chronic Pain Syndrome - pt has chronic pain - has been maintained on current medications, has not sought out other medications, only uses PRN pain medications as directed, and understands the consequences of over-medication. The pt has multiple comorbid conditions - i have recommended that she has high dose flu shot today in clinic. . Hypertension - well controlled - continue with current medications, continue with no added salt diet. Pt has been encouraged to continue with increased activity. The pt has been advised to call the office if there are any acute concerns about change in blood pressure readings at home. Hypothyroidism - pt with chronic hypothyroidism, continue with current medication, check labs. Lymphedema - recommended continued compression wrap for bilateral lower legs. Recommended patient to keep legs elevated when seated. Pt has had significant weight loss in the past month of over 28 pounds, monitor symptoms. Hold off on use of lasix unless pt has gained over 3 pounds in 48 hours. Chronic Pain Syndrome - pt has chronic pain - has been maintained on current medications, has not sought out other medications, only uses PRN pain medications as directed, and understands the consequences of over-medication. The pt has multiple comorbid conditions - i have recommended that she has high dose flu shot today in clinic. . Hypertension - well controlled - continue [...] directed otherwise. Check labs at regular intervals q 3 months or q 6 months based on previous levels of control. Lymphedema - continue with compression, elevate lower extremities while seated. . Hypertension - well controlled - continue [...] to further attempt to reduce peripheral edema. Antibiotic prescription sent to your pharmacy Take [...] in blood pressure readings at home. Chronic pain - continue with the oxycodone at 5mg qid - pain improved with appropriate administration of the medication in a timely fashion. Edema - chronic - improved with compression wraps and elevation. Unsteady on Feet - improved with physical therapy. I have recommended that she will likely be able to be discharged to home early next week as long as her home evaluation goes well. . Abrasion of scalp-healing well-continue wound care as directed Laceration left arm-healing well-continue wound care-may leave open to air Contusion of left edp-czoqwpdbq-yawltwim to monitor Edema-elevate legs-follow up tomorrow for quick check of swelling . Hypertension - well controlled - continue with current medications, continue with no added salt diet. Pt has been encouraged to exercise daily. The pt has been advised to call the office if there are any acute concerns about change in blood pressure readings at home. Abdominal ascites - abdomen is quite full, I have recommended that she needs to have paracentesis - I have talked to Dr. Salazar in radiology - he will have pt come to the department tomorrow morning for a paracentesis. Lymphedema - continue with compression pill spray is called pill glide or [...] day on average per her report. . Hypertension - well controlled - continue [...] with supportive care, call if not improving. . Cellulitis - continue with oral antibiotics as previously directed, return to clinic as previously directed, call for acute change in symptoms, worsening redness, warmth, discharge. kenalog . Bronchitis- Pt advised to increase fluids, vitamin C. Discussed natural and expected course of this diagnosis and need to alert me if symptoms do not follow expected course, or if any worse. RX sent to patient's pharmacy. . Hypothyroidism - pt with chronic hypothyroidism, [...] - Referral to Dr. Wetzel for EGD. . Hypertension - well controlled - continue with current medications, continue with no added salt diet. Pt has been encouraged to exercise daily. The pt has been advised to call the office if there are any acute concerns about change in blood pressure readings at home. Chronic Back pain -pt to have medication decreased from 7.5mg bid to 5mg bid and may have an additional 5mg at noon if needed for uncontrolled symptoms. Cirrhosis - progressive with weight loss and constant edema - discussed with pt - I think that she needs to start on hospice as this is non-recoverable. Conjunctivitis - rx for gentamycin sent to the pharmacy- order written on pt's chart. Exposure to the flu - rx for tamiflu 75mg daily x 10 days. . Skin tear to right 5th toe - improving - Wound Instructions - Pt was instructed to keep the wound clean, wash with antibacterial soap, use triple antibiotic ointment, call if redness, pustular drainage, or any other acute concerns. . Skin tear to right 5th toe - Dr. Barron in to evaluate patient - Wound Instructions - Pt was instructed to keep the wound clean, wash with antibacterial soap, use triple antibiotic ointment, call if redness, pustular drainage, or any other acute concerns. . Cellulitis - The patient was instructed in appropriate wound care. The patient was instructed to use the antibiotic as per RX. The patient is to call for any change in symptoms, increase in size of the lesion, increase in pain, worsening redness, warmth, discharge. . Hypothyroidism - pt with chronic hypothyroidism, [...] antibiotic course, call if not improving. . Hypertension - well controlled - continue with current medications, continue with no added salt diet. Pt has been encouraged to continue with increased activity. The pt has been advised to call the office if there are any acute concerns about change in blood pressure readings at home. Hypothyroidism - pt with chronic hypothyroidism, continue with current medication, check labs. Lymphedema - recommended continued compression wrap for bilateral lower legs. Recommended patient to keep legs elevated when seated. Chronic Pain Syndrome - pt has chronic [...] further attempt to reduce peripheral edema. . Edema - improved-pt has been advised to elevate legs to prevent dependent edema, compression has been recommended to help to naturally decrease peripheral edema. Diuretic use has been discussed and pt has been instructed in appropriate use of such medication as necessary to further attempt to reduce peripheral edema. . Hypertension - well controlled - continue [...] patient to keep legs elevated when seated. Cream twice a day x 3 days, [...] increase in pain, worsening redness, warmth, discharge. get labs one week before next appointment [...] and understands the consequences of over-medication. . Edema - pt has been advised to elevate legs to prevent dependent edema, compression has been recommended to help to naturally decrease peripheral edema. Diuretic use has been discussed and pt has been instructed in appropriate use of such medication as necessary to further attempt to reduce peripheral edema. Hypertension - The patient has been counseled to cut back on salt in diet for a no added salt diet, low fat diet, start an exercise program with low weight bearing exercises and higher aerobic activity for heart health. The patient is to check blood pressure readings as an outpatient and either fax , call, or email the readings to the office next week for practitioner to review. The pt is to call for acute concerns. . Bradycardia - Referral to Dr. Wilks. [...] to cut back on her chocolate intake. take lasix 40mg daily x 1 week and take 1 potassium daily with the lasix then use only as needed if you gain more than 3 pounds in 48 hours . Hypertension - well controlled - continue with current medications, continue with no added salt diet. Pt has been encouraged to exercise daily. The pt has been advised to call the office if there are any acute concerns about change in blood pressure readings at home. Lymphedema bilateral lower extremities - recommendation for pt to take lasix 40mg daily x 1 week and take 1 potassium daily with the lasix then use only as needed if you gain more than 3 pounds in 48 hours. Low back pain/chronic pain syndrome - recommended pt to continue with chronic oxycodone use - monitor symptoms. Sleep apnea - continue with CPAP - stop oxygen per pt request. . Weeping edema bilateral lower legs - [...] discharge. Keep appt with wound care. . Hypertension - well controlled - continue [...] directed otherwise. Check labs at regular intervals q 3 months or q 6 months based on previous levels of control. Edema - improved with lymphedema compression wraps. . Dressing change-return tomorrow . Skin lesion on face - lesion removed with scalpel and dressed with maycol, pt to RTC in 10 days for treatment of the lesion if not fully resolved.
--- OUTSIDE RECORDS SUMMARY | 2018-11-23 15:09 | XMS REPORT | CCD ---
Author Author [facility] Organization [facility] Address [address] [place] [address] Phone Care Team Providers Care Board Mixer Tender Name Role Phone PP Unavailable CCM Unavailable Summary Purpose Interface Exchange Insurance Providers Payer name Policy type / Coverage type Covered republican ID Effective Begin Date Effective End Date WPS Medicare Part B Medicare Part B [id number] Unknown Unknown [facility] Medicare Part B [id number] Unknown Unknown Family history Brother Diagnosis Age At Onset Diabetes Unknown Skin cancer Unknown Father Diagnosis Age At Onset Heart disease Unknown Mother Diagnosis Age At Onset advanced age Unknown Hypothyroid Unknown Social History Social History Element Codes Description Effective Dates Living arrangements Unknown Long-Term VCV 09/23/2018 Marital status Unknown Single 12/05/2014 Number of children Unknown 0 12/05/2014 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[address]: 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 Quit 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 quit 20-25 [...] Instructions gentamicin 0.3 % eye drops RxNorm: 807450 2 Drop(s) ophthalmic (eye) QID 11/09/2018 11/18/2018 Active oxycodone 5 mg tablet RxNorm: 1257956 1 Tablet(s) PO BID and 1 at noon if needed for uncontrolled pain 10/21/20182018 Active gentamicin 0.3 % eye drops RxNorm: 959933 2 Drop(s) ophthalmic (eye) QID 10/21/2018 10/30/2018 Inactive oxycodone 5 mg tablet RxNorm: 6493474 1.5 Tablet(s) PO BID 10/0510/20/2018 Inactive oxycodone 5 mg tablet RxNorm: 6105930 2 Tablet(s) PO BID 201810/04/2018 Inactive oxycodone 5 mg tablet RxNorm: 2704148 2 Tablet(s) PO BID 201809/27/2018 Inactive oxycodone 5 mg tablet RxNorm: 7868328 2 Tablet(s) PO BID 201708/29/2018 Inactive Lasix 40 mg tablet RxNorm: 721196 1 Tablet(s) PO daily as needed edema if more than 3 pounds weight gain in 48 hours 07/23/2018 11/19/2018 Active oxycodone 5 mg tablet RxNorm: 1255465 2 Tablet(s) PO BID 201707/30/2018 Inactive nadolol 20 mg tablet RxNorm: 194550 1/2 Tablet(s) PO daily No Stop Date Active oxycodone 5 mg tablet RxNorm: 4300410 2 Tablet(s) PO BID 201707/15/2018 Inactive nadolol 20 mg tablet RxNorm: 430422 1 Tablet(s) TAKE 1 TABLET BY MOUTH EVERY DAY 05/25/2018 06/21/2018 Inactive Generic For:*CORGARD 20 MG TABLET 05/21/2018 10:10: 43 AM spironolactone 50 mg tablet RxNorm: 176520 TAKE 1 TABLET BY MOUTH EVERY DAY 05/21/2018 06/03/2018 Inactive Generic For:ALDACTONE 50MG 05/21/2018 10:10:31 AM pramipexole 0.25 mg tablet RxNorm: 619247 TAKE 1 TABLET BY MOUTH TWICE DAILY 05/21/2018 06/03/2018 Inactive Generic For:MIRAPEX 0.25MG TAB 05/21/2018 10:10:48 AM levothyroxine 88 mcg tablet RxNorm: 904196 TAKE 1 TABLET BY MOUTH EVERY DAY WITH A 100MCG TABLET 05/21/2018 06/03/2018 Inactive Generic For:*SYNTHROID 0.088MG TAB 05/21/2018 10:10:11 AM levothyroxine 100 mcg tablet RxNorm: 512940 TAKE 1 TABLET BY MOUTH EVERY DAY , TAKE WITH AN 88 MCG TABLET 05/21/2018 Inactive Generic For:*SYNTHROID 100 MCG TABLET 05/21/2018 10:10:04 AM Vitamin D3 2,000 unit capsule RxNorm: 322072 1 Capsule(s) PO daily 05/21/2018 No Stop Date Active nadolol 20 mg tablet RxNorm: 808933 TAKE 1/2 TABLET BY MOUTH EVERY DAY 05/21/2018 05/24/2018 Inactive Generic For:*CORGARD 20 MG TABLET 05/21/2018 10:10:43 AM Ocuvite tablet RxNorm : 1 Tablet(s) PO BID 05/21/2018 09/22/2018 Inactive oxycodone 5 mg tablet RxNorm: 7538933 1 Tablet(s) PO QID as needed 05/15/2018 06/13/2018 Inactive pramipexole 0.25 mg tablet RxNorm: 783771 1 Tablet(s) PO BID 05/20/2018 Inactive Requip 0.25 mg tablet RxNorm: 984511 1 Tablet(s) PO BID 201705/03/2018 Inactive potassium chloride ER 10 mEq tablet,extended release RxNorm: 896035 1 Tablet(s) PO daily as needed when taking lasix 04/23/2018 08/20/2018 Inactive Lasix 40 mg tablet RxNorm: 599481 1 Tablet(s) PO daily as needed edema if more than 3 pounds weight loss in 48 hours 04/23/2018 07/22/2018 Inactive potassium chloride ER 10 mEq tablet,extended release RxNorm: 925544 1 Tablet(s) PO daily as needed when taking lasix 04/01/2018 04/22/2018 Inactive Lasix 40 mg tablet RxNorm: 453156 1 Tablet(s) PO daily as needed edema 04/01/2018 04/22/2018 Inactive oxycodone 5 mg tablet RxNorm: 4064890 1 Tablet(s) PO QID as needed 03/18/2018 04/16/2018 Inactive levothyroxine 88 mcg tablet RxNorm: 009211 1 Tablet(s) PO daily . Take with 100 mcg tablet. 02/19/2018 05/20/2018 Inactive spironolactone 50 mg tablet RxNorm: 866959 Tablet(s) TAKE 1 TABLET BY MOUTH DAILY 02/19/2018 05/20/2018 Inactive levothyroxine 100 mcg tablet RxNorm: 964227 1 Tablet(s) PO daily . Take with 88 mcg tablet 02/19/2018 02/18/2018 Inactive levothyroxine 88 mcg tablet RxNorm: 890197 1 Tablet(s) PO daily . Take with 100 mcg tablet. 02/19/2018 02/18/2018 Inactive levothyroxine 100 mcg tablet RxNorm: 981077 1 Tablet(s) PO daily . Take with 88 mcg tablet 02/19/2018 05/20/2018 Inactive spironolactone 25 mg tablet RxNorm: 756056 1 Tablet(s) PO daily 02/12/2018 02/18/2018 Inactive pt will let you know when she is ready for the refill oxycodone 10 mg tablet RxNorm: 2599490 1 Tablet(s) PO TID as needed 02/12/2018 03/13/2018 Inactive oxycodone 10 mg tablet RxNorm: 4829485 1 Tablet(s) PO Q6 as needed 01/22/2018 02/11/2018 Inactive spironolactone 50 mg tablet RxNorm: 641570 TAKE 1 TABLET BY MOUTH DAILY 01/05/2018 02/11/2018 Inactive Generic For:ALDACTONE 50MG 01/05/2018 8:27:46 AM Kenalog 40 mg/mL suspension for injection RxNorm: 5958297 1 Milliliter(s) Inj 12/26/2017 12/26/2017 Inactive Zithromax Z-Fransisco 250 mg tablet RxNorm: 969994 1 Tablet(s) PO UD 12/26/2017 12/30/2017 Inactive oxycodone 10 mg tablet RxNorm: 6011764 1 Tablet(s) PO Q6 as needed 11/25/2017 12/24/2017 Inactive nystatin 100,000 unit/gram topical powder RxNorm: 167144 1 Application TOP BID 11/13/2017 09/22/2018 Inactive nystatin 100,000 unit/gram topical cream RxNorm: 134608 Gram(s) TOP QID 11/12/2017 11/18/2017 Inactive nystatin 100,000 unit/gram topical cream RxNorm: 365165 Gram(s) TOP QID 11/12/2017 11/11/2017 Inactive Lasix 20 mg tablet RxNorm: 894121 1 Tablet(s) PO daily as needed edema 11/03/2017 11/07/2017 Inactive potassium chloride ER 10 mEq tablet,extended release RxNorm: 382231 1 Tablet(s) PO daily while on the lasix 11/03/201701/2018 Inactive Keflex 500 mg capsule RxNorm: 507247 1 Capsule(s) PO TID 201711/07/2017 Inactive potassium chloride ER 10 mEq tablet,extended release RxNorm: 283330 1 Tablet(s) PO daily while on the lasix 10/29/2017 Inactive Lasix 20 mg tablet RxNorm: 211571 1 Tablet(s) PO daily as needed edema 10/29/2017 10/31/2017 Inactive oxycodone 10 mg tablet RxNorm: 0274207 1 Tablet(s) PO Q6 as needed 09/29/2017 10/28/2017 Inactive levothyroxine 200 mcg tablet RxNorm: 218870 TAKE 1 TABLET BY MOUTH DAILY 09/01/2017 02/18/2018 Inactive Generic For:*SYNTHROID 0.2MG TAB 09/01/2017 8:36:32 AM Bactrim DS 800 mg-160 mg tablet RxNorm: 758926 1 Tablet(s) PO BID 08/07/2017 08/16/2017 Inactive Bactrim DS 800 mg-160 mg tablet RxNorm: 196095 1 Tablet(s) PO BID 08/07/2017 08/06/2017 Inactive oxycodone 10 mg tablet RxNorm: 2554954 1 Tablet(s) PO Q6 as needed 07/31/2017 08/29/2017 Inactive spironolactone 50 mg tablet RxNorm: 930942 1 Tablet(s) PO daily 06/30/2017 12/26/2017 Inactive Not due for a refill until next month nadolol 20 mg tablet RxNorm: 334098 1/2 Tablet(s) PO daily 11/28/2017 Inactive nadolol 20 mg tablet RxNorm: 599717 1 Tablet(s) PO daily 201609/22/2018 Inactive nadolol 20 mg tablet RxNorm: 965529 1/2 Tablet(s) PO daily 05/21/2017 Inactive oxycodone 10 mg tablet RxNorm: 9505849 1 Tablet(s) PO Q6 as needed 04/01/2017 04/30/2017 Inactive levothyroxine 200 mcg tablet RxNorm: 841893 TAKE 1 TABLET BY MOUTH DAILY 03/10/2017 08/31/2017 Inactive Generic For:*SYNTHROID 0.2MG TAB 03/10/2017 8:49:05 AM potassium chloride ER 10 mEq tablet,extended release RxNorm: 456186 1 Tablet(s) PO daily while on the lasix 02/18/2017 Inactive Lasix 20 mg tablet RxNorm: 1 Tablet(s) PO daily as needed edema 02/18/2017 02/20/2017 Inactive Keflex 500 mg capsule RxNorm: 088225 1 Capsule(s) PO TID 201602/16/2017 Inactive Lasix 20 mg tablet RxNorm: 1 Tablet(s) PO daily 201602/15/2017 Inactive potassium chloride ER 10 mEq tablet,extended release RxNorm: 935604 1 Tablet(s) PO daily while on the lasix 02/14/2017 Inactive Lasix 20 mg tablet RxNorm: 1 Tablet(s) PO daily 201602/13/2017 Inactive potassium chloride ER 10 mEq tablet,extended release RxNorm: 338576 1 Tablet(s) PO daily while on the lasix 02/14/2017 Inactive oxycodone 10 mg tablet RxNorm: 3106366 1 Tablet(s) PO Q6 as needed 02/05/2017 03/06/2017 Inactive minocycline 50 mg tablet RxNorm: 369230 1 Tablet(s) PO Q72H 12/03/2017 Inactive spironolactone 50 mg tablet RxNorm: 007527 1 Tablet(s) PO daily 12/18/2016 06/15/2017 Inactive Not due for a refill until next month oxycodone 10 mg tablet RxNorm: 2712784 1 Tablet(s) PO Q6 as needed 12/05/2016 01/03/2017 Inactive nadolol 20 mg tablet RxNorm: 166086 1 Tablet(s) PO daily 201604/15/2017 Inactive oxycodone 10 mg tablet RxNorm: 7565648 1 Tablet(s) PO Q6 as needed 09/30/2016 10/29/2016 Inactive levothyroxine 200 mcg tablet RxNorm: 057066 TAKE 1 TABLET BY MOUTH DAILY 09/12/2016 03/09/2017 Inactive Generic For:*SYNTHROID 0.2MG TAB 09/12/2016 8:41:27 AM oxycodone 10 mg tablet RxNorm: 0064136 1 Tablet(s) PO Q6 as needed 08/06/2016 09/04/2016 Inactive oxycodone 10 mg tablet RxNorm: 4470814 1 Tablet(s) PO Q6 as needed 06/10/2016 07/09/2016 Inactive oxycodone 10 mg tablet RxNorm: 0353762 1 Tablet(s) PO Q6 as needed 04/05/2016 05/04/2016 Inactive levothyroxine 200 mcg tablet RxNorm: 273409 1 Tablet(s) PO daily 03/14/2016 09/09/2016 Inactive oxycodone 10 mg tablet RxNorm: 3746255 1 Tablet(s) PO Q6 as needed 02/08/2016 03/08/2016 Inactive Kenalog 40 mg/mL suspension for injection RxNorm: 2189734 Milliliter(s) Inj 11/16/2015 11/16/2015 Inactive Zithromax Z-Frasnisco 250 mg tablet RxNorm: 469051 1 Tablet(s) PO UD 11/16/2015 11/20/2015 Inactive zpack, take probiotic while on abx oxycodone 10 mg tablet RxNorm: 8668439 1 Tablet(s) PO Q6 as needed 11/16/2015 02/07/2016 Inactive ceftriaxone 500 mg solution for injection RxNorm: 7962065 Inj 11/16/2015 11/16/2015 Inactive oxycodone 10 mg tablet RxNorm: 9595823 1 Tablet(s) PO Q6 as needed 10/11/2015 11/15/2015 Inactive levothyroxine 200 mcg tablet RxNorm: 200452 1 Tablet(s) PO daily 09/14/2015 03/11/2016 Inactive oxycodone 10 mg tablet RxNorm: 5969649 1 Tablet(s) PO Q6 as needed 08/10/2015 10/10/2015 Inactive Keflex 500 mg capsule RxNorm: 569413 1 Capsule(s) PO TID 201407/03/2015 Inactive Keflex 500 mg capsule RxNorm: 220054 1 Capsule(s) PO TID 201406/25/2015 Inactive oxycodone 10 mg tablet RxNorm: 7797146 1 Tablet(s) PO Q6 as needed 04/03/2015 08/09/2015 Inactive oxycodone 10 mg tablet RxNorm: 1123516 1 Tablet(s) PO Q6 as needed 02/14/2015 04/02/2015 Inactive Keflex 500 mg capsule RxNorm: 733283 1 Capsule(s) PO TID 201401/22/2015 Inactive Culturelle 10 billion cell capsule RxNorm: 808258 1 Capsule(s) PO daily 01/16/2015 02/14/2015 Inactive Dulcolax Stool Softener (docusate) 100 mg capsule RxNorm: 3205934 1 Capsule(s) PO daily 12/05/2014 02/11/2018 Inactive [SAVINGS FOR NON-COVERED DRUGS -- BIN:[id number], PCN: [id number], Group: [id number], ID# [id number], Questions: . THIS IS NOT INSURANCE.] Claritin 10 mg tablet RxNorm: 710902 1 Tablet(s) PO daily No Start Date Active Miralax 17 gram/dose oral powder RxNorm: 674681 17 Gram(s) PO QHS No Start Date Active multivitamin tablet RxNorm: 1 Tablet(s) PO daily No Start Date Active Colace 100 mg capsule RxNorm: 7635434 1 Capsule(s) PO BID No Start Date Active PreserVision AREDS oral RxNorm: 871576 oral No Start Date Active Restasis 0.05 % eye drops in a dropperette RxNorm: 357444 1 Drop(s) OPH BID No Start Date Active Vitamin D3 2,000 unit capsule RxNorm: 158394 1 Capsule(s) PO daily No Start Date 05/20/2018 Inactive minocycline 50 mg tablet RxNorm: 738029 1 Tablet(s) PO QHS No Start Date 01/20/2017 Inactive nadolol 20 mg tablet RxNorm: 600446 1 Tablet(s) PO daily No Start Date 11/05/2016 Inactive nadolol 20 mg tablet RxNorm: 470023 1 Tablet(s) PO daily No Start Date 11/05/2016 Inactive Ocuvite tablet RxNorm : 1 Tablet(s) PO BID No Start Date 05/20/2018 Inactive oxycodone 10 mg tablet RxNorm: 1057435 1 Tablet(s) PO Q6 as needed No Start Date 02/13/2015 Inactive Dulcolax Stool Softener (docusate) 100 mg capsule RxNorm: 5444179 1 Capsule(s) PO BID No Start Date 12/04/2014 Inactive Multivitamin 50 Plus tablet RxNorm: 1 Tablet(s) PO QAM No Start Date 02/11/2018 Inactive Finacea 15 % topical gel RxNorm: 3922400 TOP No Start Date 05/24/2018 Inactive Synthroid 200mcg Oral RxNorm: oral No Start Date 09/13/2015 Inactive spironolactone 50 mg tablet RxNorm: 178245 1 Tablet(s) PO daily No Start Date 12/17/2016 Inactive spironolactone 50 mg tablet RxNorm: 926886 1 Tablet(s) PO daily No Start Date 02/11/2018 Inactive Medication Administered Medication Codes Instructions Start Date Status Kenalog 40 mg/mL suspension for injection RxNorm: 8471143 1Milliliter 12/26/2017 No longer Active ceftriaxone 500 mg solution for injection RxNorm: 4406062 11/16/2015 No longer Active Kenalog 40 mg/mL suspension for injection RxNorm: 3508628 Milliliter 11/16/2015 No longer Active Immunizations Vaccine [...] Item Item Code Result Date Free T4 Tfa647 FREE T4 1.92 ng/dL 04/24/2018 Tsh Ord6 [...] 31.1 pg 04/24/2018 Cbc With Differential Ord2 [place]% 13.0 % 04/24/2018 Cbc With Differential Ord2 [...] 1.00 K/ul 04/24/2018 Cbc With Differential Ord2 [place] ABS# 0.4 K/ul 04/24/2018 Cbc With Differential Ord2 [place] ABS# 0.0 K/ul 04/24/2018 Cbc With Differential Ord2 Baso ABS# 0.0 K/ul 04/24/2018 Comp Metabolic Qar987 NA 138 mEq/L 04/24/2018 Comp Metabolic Mkt561 K 3.9 mEq/L 04/24/2018 Comp Metabolic Ydw632 CL 97 mEq/L 04/24/2018 Comp Metabolic Smj077 CO2 32.0 mEq/L 04/24/2018 Comp Metabolic Giq851 ANION GAP 13 04/24/2018 Comp Metabolic Vkf713 GLUCOSE 194 mg/dL 04/24/2018 Comp Metabolic Mvr493 Creat 0.8 mg/dL 04/24/2018 Comp Metabolic Hav475 eGFR 70 ml/min/1.73m2 04/24/2018 Comp Metabolic Zjb260 BUN 20 mg/dL 04/24/2018 Comp Metabolic Luz118 B/C Ratio 24.1 Ratio 04/24/2018 Comp Metabolic Chy364 CALCIUM 9.4 mg/dL 04/24/2018 Comp Metabolic Fjn544 ALK PHOS 110 U/L 04/24/2018 Comp Metabolic Dlp735 AST(SGOT) 33 U/L 04/24/2018 Comp Metabolic Kia360 ALT(SGPT) 16 U/L 04/24/2018 Comp Metabolic Bon589 BILI T 1.8 mg/dL 04/24/2018 Comp Metabolic Bbb886 ALBUMIN 4.0 g/dL 04/24/2018 Comp Metabolic Dav737 TPRO 5.7 g/dL 04/24/2018 Comp Metabolic Ukv267 GLOB 1.7 g/dL 04/24/2018 Comp Metabolic Cil355 A/G Ratio 2.3 Ratio 04/24/2018 Comp Metabolic Pkh052 Osmo 284 mOsmo 04/24/2018 Tsh Ord6 TSH (3rd IS) 0.07 uIU/mL 02/13/2018 Free T4 Yah541 FREE T4 1.85 ng/dL 02/13/2018 %Hba1C Qhj564 % HbA1c 84661-1 5.9 % 01/21/2017 %Hba1C Dzl765 Gluc Ave 123 mg/dL 01/21/2017 Comp Metabolic Xwp066 NA 136 mEq/L 01/21/2017 Comp Metabolic Juh001 K 4.3 mEq/L 01/21/2017 Comp Metabolic Pdj252 CL 99 mEq/L 01/21/2017 Comp Metabolic Rkb655 CO2 30.0 mEq/L 01/21/2017 Comp Metabolic Tad796 ANION GAP 11 01/21/2017 Comp Metabolic Avx718 GLUCOSE 234 mg/dL 01/21/2017 Comp Metabolic Lqj463 Creat 0.5 mg/dL 01/21/2017 Comp Metabolic Wak422 eGFR 115 ml/min/1.73m2 01/21/2017 Comp Metabolic Hku643 BUN 10 mg/dL 01/21/2017 Comp Metabolic Fgs250 B/C Ratio 18.5 Ratio 01/21/2017 Comp Metabolic Fit033 CALCIUM 8.8 mg/dL 01/21/2017 Comp Metabolic Qdm636 ALK PHOS 74 U/L 01/21/2017 Comp Metabolic Tqo038 AST(SGOT) 28 U/L 01/21/2017 Comp Metabolic Ptq351 ALT(SGPT) 15 U/L 01/21/2017 Comp Metabolic Gxu630 BILI T 1.1 mg/dL 01/21/2017 Comp Metabolic Wjs796 ALBUMIN 3.8 g/dL 01/21/2017 Comp Metabolic Mzw125 TPRO 5.8 g/dL 01/21/2017 Comp Metabolic Swi455 GLOB 2.0 g/dL 01/21/2017 Comp Metabolic Ghy431 A/G Ratio 1.9 Ratio 01/21/2017 Comp Metabolic Pui247 Osmo 279 mOsmo 01/21/2017 Tsh Ord6 hTSH II 0.80 uIU/mL 04/03/2015 Bili D Ord93 BILI D 0.1 mg/dL 04/03/2015 Bili D Ord93 BILI I 0.9 mg/dL 04/03/2015 Free T4 Nrp178 FREE T4 1.27 ng/dL 04/03/2015 Cbc With [...] Ord2 RDW 15.6 % 04/03/2015 Comp Metabolic Jft787 NA 136 mEq/L 04/03/2015 Comp Metabolic Igr221 K 4.3 mEq/L 04/03/2015 Comp Metabolic Gvk665 CL 99 mEq/L 04/03/2015 Comp Metabolic Zfz422 CO2 29.0 mEq/L 04/03/2015 Comp Metabolic Enx417 ANION GAP 12 04/03/2015 Comp Metabolic Dhx002 GLUCOSE 120 mg/dL 04/03/2015 Comp Metabolic Ctg845 Creat 0.5 mg/dL 04/03/2015 Comp Metabolic Fok070 eGFR 118 ml/min/1.73m2 04/03/2015 Comp Metabolic Ltf701 BUN 11 mg/dL 04/03/2015 Comp Metabolic Ouk726 B/C Ratio 20.8 Ratio 04/03/2015 Comp Metabolic Rws814 CALCIUM 9.3 mg/dL 04/03/2015 Comp Metabolic Nsh495 ALK PHOS 61 U/L 04/03/2015 Comp Metabolic Wev115 AST(SGOT) 28 U/L 04/03/2015 Comp Metabolic Zuj899 ALT(SGPT) 16 U/L 04/03/2015 Comp Metabolic Bsm837 BILI T 1.0 mg/dL 04/03/2015 Comp Metabolic Icg868 ALBUMIN 4.1 g/dL 04/03/2015 Comp Metabolic Wqw847 TPRO 6.1 g/dL 04/03/2015 Comp Metabolic Kgs596 GLOB 2.0 g/dL 04/03/2015 Comp Metabolic Pkx730 A/G Ratio 2.1 Ratio 04/03/2015 Comp Metabolic Sfv213 Osmo 273 mOsmo 04/03/2015 Review of Systems [...] FLU VACC PRSV FREE INC ANTIG CPT-4: 35032 04/23/2018 TRIAMCINOLONE ACET INJ NOS CPT-4: J3301 12/26/2017 ADMIN INFLUENZA VIRUS VAC CPT-4: G0008 04/16/2017 FLU VACC PRSV FREE INC ANTIG CPT-4: 85098 04/16/2017 TRIAMCINOLONE ACET INJ NOS CPT-4: J3301 [...] Code : 8480-6 BMI: 23.6 Code : 29703-9 Heart Rate 1 : 59 bpm Height: 5'1" Respiratory Rate: 18 bpm SpO2: 99% Temperature: 37.0 (C) / 98.6 (F ) Weight: 125 lbs 04/23/2018 Blood Pressure 2: 118/62 Code : 8480-6 BMI: 22.3 Code : 48467-9 Heart Rate 1 : 73 bpm Height: 5'1" SpO2: 97% Weight: 118 lbs 04/01/2018 Blood Pressure 1: 136/72 Code : 8480-6 BMI: 26.6 Code : 96471-6 Heart Rate 1 : 75 bpm Height: 5'1" SpO2: 98% Weight: 141 lbs 03/18/2018 Blood Pressure 1: 132/62 Code : 8480-6 Heart Rate 1: 61 bpm Height: 5'1" SpO2: 96% Weight: 03/09/2018 Blood Pressure 1: 122/60 Code : 8480-6 Heart Rate 1: 65 bpm Height: 5'1" SpO2: 98% Weight: 02/12/2018 Blood Pressure 1: 100/68 Code : 8480-6 BMI: 24.3 Code : 03269-9 Heart Rate 1 : 68 bpm Height: 5'1" SpO2: 96% Weight: 128 lbs 13 oz 12/26/2017 Blood Pressure 1: 126/68 Code : 8480-6 BMI: 26.7 Code : 20454-5 Heart Rate 1 : 66 bpm Height: 5'1" SpO2: 98% Temperature: 36.8 (C) / 98.2 (F) Weight: 141 lbs 8 oz 12/04/2017 Blood Pressure 1: 132/76 Code : 8480-6 BMI: 26.5 Code : 14948-4 Heart Rate 1 : 73 bpm Height: 5'1" SpO2: 96% Weight: 140 lbs 11/13/2017 Blood Pressure 1: 126/62 Code : 8480-6 Heart Rate 1: 69 bpm Height: 5'1" SpO2: 96% Weight: 11/06/2017 Blood Pressure 1: 142/84 Code : 8480-6 BMI: 25.7 Code : 57425-3 Heart Rate 1 : 78 bpm Height: 5'1" SpO2: 95% Temperature: 36.9 (C) / 98.5 (F) Weight: 136 lbs 10/29/2017 Blood Pressure 1: 132/68 Code : 8480-6 BMI: 26.8 Code : 03468-6 Heart Rate 1 : 70 bpm Height: 5'1" SpO2: 98% Weight: 142 lbs 09/04/2017 Blood Pressure 1: 132/74 Code : 8480-6 BMI: 25.9 Code : 23652-9 Heart Rate 1 : 68 bpm Height: 5'1" SpO2: 96% Weight: 137 lbs 08/08/2017 Blood Pressure 1: 118/72 Code : 8480-6 BMI: 26.6 Code : 28068-5 Heart Rate 1 : 68 bpm Height: 5'1" SpO2: 95% Weight: 141 lbs 05/29/2017 Blood Pressure 1: 142/78 Code : 8480-6 BMI: 26.3 Code : 37143-3 Heart Rate 1 : 65 bpm Height: 5'1" SpO2: 95% Weight: 139 lbs 04/16/2017 Blood Pressure 1: 136/62 Code : 8480-6 BMI: 27.4 Code : 70745-3 Heart Rate 1 : 38 bpm Height: 5'1" SpO2: 98% Weight: 145 lbs 02/10/2017 Blood Pressure 1: 124/70 Code : 8480-6 BMI: 27.4 Code : 00030-1 Heart Rate 1 : 70 bpm Height: 5'1" SpO2: 96% Weight: 145 lbs 01/21/2017 Blood Pressure 1: 120/70 Code : 8480-6 BMI: 27.2 Code : 11767-2 Heart Rate 1 : 65 bpm Height: 5'1" SpO2: 95% Weight: 144 lbs 12/18/2016 Blood Pressure 1: 122/74 Code : 8480-6 BMI: 27.4 Code : 77914-5 Heart Rate 1 : 66 bpm Height: 5'1" SpO2: 97% Weight: 145 lbs 08/26/2016 Blood Pressure 1: 110/64 Code : 8480-6 BMI: 28.0 Code : 82938-6 Heart Rate 1 : 67 bpm Height: 5'1" SpO2: 97% Weight: 148 lbs 02/27/2016 Blood Pressure 1: 126/74 Code : 8480-6 Heart Rate 1: 67 bpm Height: 5'1" SpO2: 97% 02/19/2016 Blood Pressure 1: 130/80 Code : 8480-6 BMI: 28.2 Code : 25874-3 Heart Rate 1 : 74 bpm Height: 5'1" SpO2: 96% Weight: 149 lbs 02/08/2016 Blood Pressure 1: 122/78 Code : 8480-6 BMI: 28.2 Code : 34502-1 Heart Rate 1 : 63 bpm Height: 5'1" SpO2: 96% Weight: 149 lbs 11/16/2015 Blood Pressure 1: 128/70 Code : 8480-6 BMI: 27.8 Code : 68231-9 Heart Rate 1 : 64 bpm Height: 5'1" SpO2: 97% Weight: 147 lbs 07/18/2015 Blood Pressure 1: 110/60 Code : 8480-6 BMI: 28.5 Code : 03207-8 Heart Rate 1 : 61 bpm Height: 5'1" SpO2: 97% Weight: 151 lbs 06/27/2015 Blood Pressure 1: 122/60 Code : 8480-6 BMI: 28.9 Code : 97710-1 Heart Rate 1 : 63 bpm Height: 5'1" SpO2: 95% Weight: 153 lbs 06/19/2015 Blood Pressure 1: 120/78 Code : 8480-6 Heart Rate 1: 68 bpm SpO2: 96% Weight: 154 lbs 04/03/2015 Blood Pressure 1: 128/68 Code : 8480-6 BMI: 29.1 Code : 23684-4 Heart Rate 1 : 70 bpm Height: 5'1" SpO2: 97% Weight: 154 lbs 02/27/2015 Blood Pressure 1: 122/84 Code : 8480-6 BMI: 29.5 Code : 00750-4 Heart Rate 1 : 67 bpm Height: 5'1" SpO2: 95% Weight: 156 lbs 01/26/2015 Blood Pressure 1: 132/70 Code : 8480-6 BMI: 30.2 Code : 35893-9 Heart Rate 1 : 76 bpm Height: 5'1" Weight: 160 lbs 01/16/2015 Blood Pressure 1: 140/70 Code : 8480-6 BMI: 30.0 Code : 29221-7 Heart Rate 1 : 78 bpm Height: 5'1" Respiratory Rate: 20 bpm Weight: 159 lbs 12/05/2014 Blood Pressure 1: 138/78 Code : 8480-6 BMI: 30.8 Code : 22367-5 Heart Rate 1 : 76 bpm Height: [...] not bring in readings 2018 -Checked at [facility] Pertinent Findings edema 09/23/2018 None Quality chronic [...] ill contacts 07/23/2018 she is in a detention Triggers recumbent position 07/23/2018 None Pertinent Findings [...] ill contacts 07/07/2018 she is in a detention Trig[employer] recumbent position 07/07/2018 None Hospital Follow [...] ICD10: S91.311D] [facility] CPT-4: 84177 11/11/2018 [id number] EST. PATIENT, LEVEL III Diagnosis: Laceration without foreign body, right foot, initial encounter[ICD10 : S91.311A] [facility] CPT-4: 09857 10/2018 ([id number]) 32641 EST. 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 PATIENT, LEVEL IV Diagnosis: Essential (primary) hypertension[ICD10: I10] Diagnosis: Localized edema[ICD10: R60.0] Diagnosis: Atrophy of thyroid (acquired)[ICD10: E03.4] Alexandria Barron MD, [facility] CPT-4: 70417 09/23/2018 [id number] EST. PATIENT, LEVEL III Diagnosis: Essential (primary) hypertension[ICD10: I10] Diagnosis: Localized edema[ICD10: R60.0] Светлана Barron MD, [facility] CPT-4 : 51570 09/14/2018 ([id number]) 19002 EST. PATIENT, LEVEL IV Diagnosis: Essential (primary) hypertension[ICD10: I10] Diagnosis: Lymphedema, not elsewhere classified[ICD10: I89.0] Diagnosis: Other ascites[ICD10: R18.8] Alexandria Barron MD, [facility] CPT- 4: 54942 07/23/2018 ([id number]) [id number] EST. PATIENT, LEVEL IV Diagnosis: Essential (primary) hypertension[ICD10: I10] Diagnosis: Atrophy of thyroid (acquired)[ICD10: E03.4] Diagnosis: Lymphedema, not elsewhere classified[ICD10: I89.0] Alexandria Barron MD, [facility] CPT-4: 51325 07/07/2018 ([id number]) [id number] EST. PATIENT, LEVEL IV Diagnosis: Essential (primary) hypertension[ICD10: I10] Diagnosis: Localized edema[ICD10: R60.0] Alexandria Barron MD, [facility] CPT- 4: 32562 06/22/2018 ([id number]) [id number] EST. PATIENT, LEVEL IV Diagnosis: Atrophy of thyroid (acquired)[ICD10: E03.4] Diagnosis: Essential (primary) hypertension[ICD10: I10] Diagnosis: Other chronic pain[ICD10: G89.29] Diagnosis: Pain in left knee[ICD10: M25.562] Diagnosis: Low back pain[ICD10: M54.5] [facility] CPT- 4: 52717 05/25/2018 ([id number]) [id number] EST. PATIENT, LEVEL IV Diagnosis: Atrophy of thyroid (acquired)[ICD10: E03.4] Diagnosis: Essential (primary) hypertension[ICD10: I10] Diagnosis: Other chronic pain[ICD10: G89.29] Diagnosis: Pain in left knee[ICD10: M25.562] Diagnosis: Low back pain[ICD10: M54.5] Diagnosis: Other secondary thrombocytopenia[ICD10: D69.59] Diagnosis: Encounter for immunization[ICD10: Z23] [facility] CPT-4: 25780 04/23/2018 ([id number]) 00488 EST. PATIENT, LEVEL IV Diagnosis: Essential (primary) hypertension[ICD10: I10] Diagnosis: Low back pain[ICD10: M54.5] Diagnosis: Localized edema[ICD10: R60.0] Diagnosis: Other chronic pain[ICD10: G89.29] Diagnosis: Obstructive sleep apnea (adult) (pediatric)[ICD10: G47.33] [facility] CPT-4: 42371 04/01/2018 ([id number]) 42683 EST. PATIENT, LEVEL IV Diagnosis: Essential (primary) hypertension[ICD10: I10] Diagnosis: Other chronic pain[ICD10: G89.29] Diagnosis: Unsteadiness on feet[ICD10: R26.81] [facility] CPT-4: 93161 03/18/2018 ([id number]) 98636 EST. PATIENT, LEVEL IV Diagnosis: Low back pain[ICD10: M54.5] Diagnosis: Localized edema[ICD10: R60.0] Diagnosis: Essential (primary) hypertension[ICD10: I10] Diagnosis: Other chronic pain[ICD10: G89.29] Diagnosis: Pressure ulcer of left buttock, stage 1[ICD10: L89.321] Diagnosis: Obstructive sleep apnea (adult) (pediatric)[ICD10: G47.33] [facility] CPT-4: 02026 03/09/2018 ([id number]) 38972 EST. PATIENT, LEVEL IV Diagnosis: Atrophy of thyroid (acquired)[ICD10: E03.4] Diagnosis: Essential (primary) hypertension[ICD10: I10] Diagnosis: Localized edema[ICD10: R60.0] Diagnosis: Other chronic pain[ICD10: G89.29] Alexandria Barron MD, [facility] CPT-4: 42907 02/12/2018 ([id number]) 07630 EST. PATIENT, LEVEL III Diagnosis: Cough[ICD10: R05] Diagnosis: Acute bronchitis, unspecified[ICD10: J20.9] Sandra Barron MD, [facility] CPT-4: 67989 12/26/2017 ([id number]) 21201 EST. PATIENT, LEVEL IV Diagnosis: Essential (primary) hypertension[ICD10: I10] Diagnosis: Other specified noninfective disorders of lymphatic vessels and lymph nodes[ICD10: I89.8] Diagnosis: Atrophy of thyroid (acquired)[ICD10: E03.4] Alexandria Barron MD, [facility] CPT-4: 01810 12/04/2017 05391 EST. PATIENT, LEVEL III Diagnosis: Candidiasis of skin and nail[ICD10: B37.2] Светлана Barron MD, [facility] CPT-4: 45121 11/13/2017 ([id number]) 96281 EST. PATIENT, LEVEL III Diagnosis: Lymphedema, not elsewhere classified[ICD10: I89.0] Diagnosis: Low back pain[ICD10: M54.5] Diagnosis: Localized edema[ICD10: R60.0] Alexandria Barron MD, [facility] CPT- 4: 86249 11/06/2017 ([id number]) Miscellaneous no charge Diagnosis: Localized edema[ICD10: R60.0] Diagnosis: Cellulitis of right lower limb[ICD10: L03.115] Diagnosis: Cellulitis of left lower limb[ICD10: L03.116] Светлана Barron MD, [facility] CPT-4: 83898 11/03/2017 30554 EST. PATIENT, LEVEL III Diagnosis: Cellulitis of left lower limb[ICD10: L03.116] Diagnosis: Localized edema[ICD10: R60.0] Светлана Barron MD, [facility] CPT-4 : 78673 10/29/2017 ([id number]) 31599 EST. PATIENT, LEVEL IV Diagnosis: Essential (primary) hypertension[ICD10: I10] Diagnosis: Atrophy of thyroid (acquired)[ICD10: E03.4] Diagnosis: Pain in left knee[ICD10: M25.562] Diagnosis: Stiffness of left hand, not elsewhere classified[ICD10: M25.642] Diagnosis: Stiffness of right hand, not elsewhere classified[ICD10: M25.641] Alexandria Barron MD, [facility] CPT-4: 06596 09/04/2017 ([id number]) 23743 EST. PATIENT, LEVEL III Diagnosis: Other viral warts[ICD10: B07.8] Diagnosis: Other skin changes[ICD10: R23.8] Alexandria Barron MD, [facility] CPT-4: 74464 08/08/2017 ([id number]) 45282 EST. PATIENT, LEVEL IV Diagnosis: Essential (primary) hypertension[ICD10: I10] Diagnosis: Atrophy of thyroid (acquired)[ICD10: E03.4] Diagnosis: Low back pain[ICD10: M54.5] Alexandria Barron MD, [facility] CPT- 4: 84979 05/29/2017 ([id number]) 95547 EST. PATIENT, LEVEL IV Diagnosis: Essential (primary) hypertension[ICD10: I10] Diagnosis: Atrophy of thyroid (acquired)[ICD10: E03.4] Diagnosis: Encounter for immunization[ICD10: Z23] Diagnosis: Sick sinus syndrome[ICD10: I49.5] Alexandria Barron MD, [facility] CPT-4: 12729 04/16/2017 ([id number]) Miscellaneous no charge Diagnosis: Cellulitis of left lower limb[ICD10: L03.116] Светлана Barron MD, [facility] CPT-4: 89168 02/24/2017 83675 EST. PATIENT, LEVEL III Diagnosis: Cellulitis of left lower limb[ICD10: L03.116] Diagnosis: Cellulitis of right lower limb[ICD10: L03.115] Светлана Barron MD, [facility] CPT-4: 91206 02/10/2017 ([id number]) 09275 EST. PATIENT, LEVEL IV Diagnosis: Essential (primary) hypertension[ICD10: I10] Diagnosis: Other abnormal glucose[ICD10: R73.09] Diagnosis: Localized edema[ICD10: R60.0] Alexandria Barron MD, [facility] CPT- 4: 33104 01/21/2017 68851 EST. PATIENT, LEVEL IV Diagnosis: Essential (primary) hypertension[ICD10: I10] Diagnosis: Pain in left knee[ICD10: M25.562] Diagnosis: Atrophy of thyroid (acquired)[ICD10: E03.4] Alexandria Barron MD, [facility] CPT-4: 26149 12/18/2016 ([id number]) 55343 EST. PATIENT, LEVEL IV Diagnosis: Essential (primary) hypertension[ICD10: I10] Diagnosis: Pain in left knee[ICD10: M25.562] Diagnosis: Other instability, left knee[ICD10: M25.362] Diagnosis: Other chronic pain[ICD10: G89.29] Alexandria Barron MD, [facility] CPT-4: 29390 08/26/2016 ([id number]) 02430 EST. PATIENT, LEVEL III Diagnosis: Localized edema[ICD10: R60.0] Sandra Barron MD, [facility] CPT-4: 49051 02/27/2016 ([id number]) Miscellaneous no charge Diagnosis: Lymphedema, not elsewhere classified[ICD10: I89.0] Sandra Barron MD, [facility] CPT-4: 08108 02/20/2016 ([id number]) 35129 EST. PATIENT, LEVEL III Diagnosis: Contusion of left lower leg, subsequent encounter[ICD10: S80.12XD] Diagnosis: Abrasion of scalp, subsequent encounter[ICD10: S00.01XD] Diagnosis: Laceration without foreign body of left upper arm, subsequent encounter[ICD10: S41.112D] Diagnosis: Localized edema[ICD10: R60.0] Sandra Barron MD, [facility] CPT-4: 97626 02/19/2016 ([id number]) Miscellaneous no charge Diagnosis: Laceration without foreign body of left upper arm, subsequent encounter[ICD10: S41.112D] Diagnosis: Abrasion of scalp, subsequent encounter[ICD10: S00.01XD] Sandra Barron MD , [facility] CPT-4: 72696 02/12/2016 ([id number]) 63075 EST. PATIENT, LEVEL IV Diagnosis: Contusion of left lower leg, initial encounter[ICD10: S80.12XA] Diagnosis: Abrasion of scalp, initial encounter[ICD10: S00.01XA] Diagnosis: Laceration without foreign body of left upper arm, initial encounter[ ICD10: S41.112A] Diagnosis: Localized edema[ICD10: R60.0] Diagnosis: Hypothyroidism, unspecified[ICD10: E03.9] Diagnosis: Essential (primary) hypertension[ICD10: I10] Alexandria Barron MD, [facility] CPT-4: 48471 02/08/2016 ([id number]) 59350 EST. PATIENT, LEVEL IV Diagnosis: Cough[ICD10: R05] Diagnosis: Low back pain[ICD10: M54.5] Diagnosis: Allergic rhinitis due to pollen[ICD10: J30.1] Diagnosis: Acute upper respiratory infection, unspecified[ICD10: J06.9] Diagnosis: Acute bronchitis, unspecified[ICD10: J20.9] Sandra Barron MD, [facility] CPT-4: 96314 11/16/2015 ([id number]) 81597 EST. PATIENT, LEVEL IV Diagnosis: Hypothyroidism, unspecified[ICD10: E03.9] Diagnosis: Lymphedema, not elsewhere classified[ICD10: I89.0] Alexandria Barron MD, [facility] CPT-4: 61590 07/18/2015 30088 EST. PATIENT, LEVEL IV Diagnosis: Contusion of left lower leg, subsequent encounter[ICD10: S80.12XD] Diagnosis: Cellulitis of left lower limb[ICD10: L03.116] Светлана Barron MD, [facility] CPT-4: 94418 06/27/2015 04432 EST. PATIENT, LEVEL III Diagnosis: Contusion of left lower leg, initial encounter[ICD10: S80.12XA] Diagnosis: Cellulitis of left lower limb[ICD10: L03.116] Светлана Barron MD, [facility] CPT-4: 60042 06/19/2015 ([id number]) 47220 EST. 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 PATIENT, LEVEL III Diagnosis: Rosacea, acne[ICD9: 695.3] Diagnosis: Lymphedema[ICD9: 457.1] Sandra Barron MD, [facility] CPT-4: 01445 02/27/2015 ([id number]) 79258 EST. PATIENT, LEVEL III Diagnosis: Right leg swelling[ICD9: 729.81] Alexandria Barron MD, [facility] CPT-4: 44390 01/26/2015 ([id number]) 08311 EST. PATIENT, LEVEL III Diagnosis: CELLULITIS OF LEG[ICD9: 682.6] Mary Ann Barron MD, [facility] CPT-4 : 17032 01/16/2015 ([id number]) OFFICE VISIT, NEW - LEVEL 4 Diagnosis: Back pain[ICD9: 724.5] Diagnosis: Lymphedema[ICD9: 457.1] Diagnosis: Sacroiliitis[ICD9: 720.2] Diagnosis: Chronic pain[ICD9: 338.29] Diagnosis: HYPOTHYROIDISM[ICD9: 244.9] Diagnosis: Dysphagia[ICD9: 787.20] Alexandria Barron MD, [facility] CPT-4: 67031 12/05/2014 Plan of Care Planned Activity Notes [...] other acute concerns. 11/04/2018 Appointment: Светлана Garciatel: [facility] ([facility] min[facility] Complex 11/04/2018 Patient Education: [...] 10 days. 10/21/2018 Appointment: Alexandria Barron WPtel: [facility] (15 min) Moderate 10/21/2018 Patient Education: Patient [...] compression wraps. 09/23/2018 Appointment: Alexandria Barron WPtel: [facility] (15 min) Moderate 09/23/2018 Patient Education: Patient [...] acute concerns. 09/14/2018 Appointment: Светлана Garcia WPtel: [facility] (30 min) Complex 09/14/2018 Patient Education: [...] compression 07/23/2018 Appointment: Alexandria Bar[facility] WPtel[phone] (15 min) Moderate 07/23/2018 Patient Education: Patient [...] while seated. 07/07/2018 Appointment: Alexandria Barron WPtel: [phone] [facility] (15 min) Moderate 07/07/2018 Patient Education: [...] peripheral edema. 06/22/2018 Appointment: Alexandria Barron WPtel: [phone] [facility] (15 min) Moderate 06/22/2018 Patient Education: Patient Medication Summary Completed 06/22/2018 Appointment: Alexandria Barron WPtel: [phone] [facility] (15 min) Moderate 05/27/2018 Visit Plan: [...] of over-medication. 05/25/2018 Appointment: Alexandria Bar[facility] WPtel[phone] (15 min) Moderate 05/25/2018 Patient Education: Patient Medication Summary Completed 05/25/2018 Patient Education: Back Pain Completed 05/25/2018 Appointment: Светлана Garcia WPtel: [phone] [facility] (30 min) Complex 05/15/2018 Visit Plan: Hypertension [...] in clinic. 04/23/2018 Appointment: Alexandria Barron WPtel: [address] [place], [place] [address] (15 min) Moderate 04/23/2018 Patient Education: Patient [...] pt request. 04/01/2018 Appointment: Alexandria Barron WPtel: [facility]5 [facility] (15 min) Moderate 04/01/2018 Patient Education: [...] goes well. 03/18/2018 Appointment: Alexandria Barron WPtel: [facility] (15 min) Moderate 03/18/2018 Patient Education: Patient [...] on buttock. 03/09/2018 Appointment: Alexandria Barron WPtel: [facility]4 [facility] (15 min) Moderate 03/09/2018 Patient Education: [...] her report. 02/12/2018 Appointment: Alexandria Barron WPtel: [facility]4 [facility] (15 min) Moderate 02/12/2018 Patient Education: Patient Medication Summary Completed 02/12/2018 Visit Plan: Bronchitis- Pt advised to increase fluids, vitamin C. Discussed natural and expected course of this diagnosis and need to alert me if symptoms do not follow expected course, or if any worse. RX sent to patient's pharmacy. 12/26/2017 Appointment: Sandra Mcdonald WPtel: [facility]7 [phone] [place] (15 min) Moderate 12/26/2017 Patient Education: [...] seated. 12/04/2017 Appointment: Alexandria Barron WPtel: [phone] (30 min) Complex 12/04/2017 Patient Education: Patient Medication Summary Completed 12/04/2017 Visit Plan: Yeast rash - The patient was instructed in appropriate care. The patient was instructed to use the ointment as per RX. The patient is to call for any change in symptoms, increase in size of the lesion, increase in pain, worsening redness, warmth, discharge. 11/13/2017 Appointment: Светлана Garcia WPtel: [phone] [facility] (30 min) Complex 11/13/2017 Patient Education: Patient [...] care. 11/06/2017 Appointment: Alexandria Barron WPtel: [phone] (30 min) Complex 11/06/2017 Patient Education: Patient [...] edema. 10/29/2017 Appointment: Светлана Garcia [facility]Ptel: [phone] (15 min) Moderate 10/29/2017 Patient Education: [...] sample 09/04/2017 Appointment: Alexandria Barron WPtel: [phone] (15 min) Moderate 09/04/2017 Patient Education: Patient Medication Summary Completed 09/04/2017 Appointment: Светлана Garcia WPtel: [phone] (15 min) Moderate 08/18/2017 Visit Plan: Skin lesion on face - lesion removed with scalpel and dressed with medihoney, pt to RTC in 10 days for treatment of the lesion if not fully resolved. 08/08/2017 Appointment: Alexandria Barron WPtel: [phone] (30 min) Complex 08/08/2017 Patient Education: Patient [...] over- medication. 05/29/2017 Appointment: Alexandria Barron WPtel: 101 [facility] (15 min) Moderate 05/29/2017 Patient Education: Patient Medication Summary Completed 05/29/2017 Appointment: Alexandria Barron WPtel: [phone] [facility] (15 min) Moderate 04/30/2017 Referral: Alberta Wilks [address] [place], [place] [id number] Patient informed. Referral info faxed. Completed [...] of control. 04/16/2017 Appointment: Alexandria Barron WPtel: [facility] (15 min) Moderate 04/16/2017 Patient Education: Patient Medication Summary Completed 04/16/2017 Care Plan: Referral Order SNOMED-CT : [id number] Pending 04/16/2017 Visit Plan: Wound healed - no further treatment at this time. 02/24/2017 Appointment: Nurse Visit 02/24/2017 Patient Education: Patient Medication Summary Completed 02/24/2017 Appointment: Nurse Visit 02/18/2017 Appointment: Светлана Garcia WPtel: [facility]0 [facility] (30 min) Complex 02/14/2017 Visit Plan: Cellulitis - The patient was instructed in appropriate wound care. The patient was instructed to use the antibiotic as per RX. The patient is to call for any change in symptoms, increase in size of the lesion, increase in pain, worsening redness, warmth, discharge. 02/10/2017 Appointment: Светлана Garcia WPtel: [phone] [facility] (30 min) Complex 02/10/2017 Patient Education: [...] intake. 01/21/2017 Appointment: Alexandria Barron WPtel: [phone] [facility] (15 min) Moderate 01/21/2017 Patient Education: [...] improving. 12/18/2016 Appointment: Alexandria Barron WPtel: [phone] [facility] (15 min) Moderate 12/18/2016 Patient Education: [...] to specialist 08/26/2016 Appointment: Alexandria Barron WPtel: [phone] [facility] (15 min) Moderate 08/26/2016 Patient Education: Patient Medication Summary Completed 08/26/2016 Care Plan: Referral Order SNOMED-CT : [id number] Pending 08/26/2016 Appointment: Sandra Mcdonald WPtel: [facility]5 [phone] (30 min) Complex 03/11/2016 Visit Plan: Edema - improved-pt has been advised to elevate legs to prevent dependent edema, compression has been recommended to help to naturally decrease peripheral edema. Diuretic use has been discussed and pt has been instructed in appropriate use of such medication as necessary to further attempt to reduce peripheral edema. 02/27/2016 Appointment: Sandra Mcdonald WPtel: [facility]9 [phone] (30 min) Complex 02/27/2016 Patient Education: Patient Medication Summary Completed 02/27/2016 Appointment: Nurse Visit 02/20/2016 Patient Education: Patient Medication Summary Completed 02/20/2016 Visit Plan: Abrasion of scalp-healing well-continue wound care as directed Laceration left arm-healing well-continue wound care-may leave open to air Contusion of left efk-poycglmxf-seoeffkg to monitor Edema-elevate legs-follow up tomorrow for quick check of swelling 02/19/2016 Appointment: Sandra Mcdonald WPtel: [phone] [phone] [place] (15 min) Moderate 02/19/2016 Patient Education: [...] peripheral edema. 02/08/2016 Appointment: Alexandria Barron WPtel: [facility]5 [facility] (15 min) Moderate 02/08/2016 Patient Education: Patient [...] of swelling. 07/18/2015 Appointment: Alexandria Barron WPtel: [phone] [facility] (15 min) Moderate 07/18/2015 Patient Education: [...] not improving. 04/03/2015 Appointment: Alexandria Barron WPtel: [phone] (15 min) Moderate 04/03/2015 Patient Education: Patient Medication Summary Completed 04/03/2015 Visit Plan: Rosacea-continue finacea as directed-add metronidazole cream twice daily-call if symptoms do not improve or if any worse. Qvoovklxms-cnolrbv-gniowhmh with wraps-no change in treatment 02/27/2015 Appointment: [...] for EGD. 12/05/2014 Appointment: Alexandria Barron WPtel: [facility] [place] ([place] New Patient 12/05/2014 Patient Education: Patient Medication Summary Completed 12/05/2014 Patient Education: Hypertension Completed 12/05/2014 Referral: Jose A Rios Referral Appointment Requested Referral: Alberta Wilks [address] [place], [place] [address] [place] Referral Appointment Requested Referral: Amarjit Veronicatel[facility] Referral App[facility]ment Requested Referral: Jayro Wetzel WPtel: [...] do not improve or if any worse. Ngkgfwbjtx-kusqrtw-gvwittnf with wraps-no change in treatment . Left [...] leave open to air Contusion of left vtu-ikoxvtkby-tgrlskfb to monitor Edema-elevate legs-follow up tomorrow for [...]
--- OUTSIDE RECORDS SUMMARY | 2018-11-23 15:13 | XMS REPORT | CCD ---
Author Author [facility] Organization [facility] Address [address] [place] [address] Phone Care Team Providers Care Piece Work Checker Name Role Phone PP Unavailable CCM Unavailable Summary Purpose Interface Exchange Insurance Providers Payer name Policy type / Coverage type Covered democrat ID Effective Begin Date Effective End Date WPS Medicare Part B Medicare Part B [id number] Unknown Unknown [facility] Medicare Part B [id number] Unknown Unknown Family history Brother Diagnosis Age At Onset Diabetes Unknown Skin cancer Unknown Father Diagnosis Age At Onset Heart disease Unknown Mother Diagnosis Age At Onset advanced age Unknown Hypothyroid Unknown Social History Social History Element Codes Description Effective Dates Living arrangements Unknown Intermediate VCV 09/23/2018 Marital status Unknown Single 12/05/2014 Number of children Unknown 0 12/05/2014 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/[address]: 6427519 Quit 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 quit 20-25 [...] Instructions gentamicin 0.3 % eye drops RxNorm: 553665 2 Drop(s) ophthalmic (eye) QID 11/09/2018 11/18/2018 Active oxycodone 5 mg tablet RxNorm: 1393001 1 Tablet(s) PO BID and 1 at noon if needed for uncontrolled pain 10/21/20182018 Active gentamicin 0.3 % eye drops RxNorm: 152012 2 Drop(s) ophthalmic (eye) QID 10/21/2018 10/30/2018 Inactive oxycodone 5 mg tablet RxNorm: 5685012 1.5 Tablet(s) PO BID 10/0510/20/2018 Inactive oxycodone 5 mg tablet RxNorm: 8499273 2 Tablet(s) PO BID 201810/04/2018 Inactive oxycodone 5 mg tablet RxNorm: 3997324 2 Tablet(s) PO BID 201809/27/2018 Inactive oxycodone 5 mg tablet RxNorm: 7640047 2 Tablet(s) PO BID 201708/29/2018 Inactive Lasix 40 mg tablet RxNorm: 794316 1 Tablet(s) PO daily as needed edema if more than 3 pounds weight gain in 48 hours 07/23/2018 11/19/2018 Active oxycodone 5 mg tablet RxNorm: 5427059 2 Tablet(s) PO BID 201707/30/2018 Inactive nadolol 20 mg tablet RxNorm: 085096 1/2 Tablet(s) PO daily No Stop Date Active oxycodone 5 mg tablet RxNorm: 7245167 2 Tablet(s) PO BID 201707/15/2018 Inactive nadolol 20 mg tablet RxNorm: 075973 1 Tablet(s) TAKE 1 TABLET BY MOUTH EVERY DAY 05/25/2018 06/21/2018 Inactive Generic For:*CORGARD 20 MG TABLET 05/21/2018 10:10: 43 AM spironolactone 50 mg tablet RxNorm: 413191 TAKE 1 TABLET BY MOUTH EVERY DAY 05/21/2018 06/03/2018 Inactive Generic For:ALDACTONE 50MG 05/21/2018 10:10:31 AM pramipexole 0.25 mg tablet RxNorm: 083694 TAKE 1 TABLET BY MOUTH TWICE DAILY 05/21/2018 06/03/2018 Inactive Generic For:MIRAPEX 0.25MG TAB 05/21/2018 10:10:48 AM levothyroxine 88 mcg tablet RxNorm: 541903 TAKE 1 TABLET BY MOUTH EVERY DAY WITH A 100MCG TABLET 05/21/2018 06/03/2018 Inactive Generic For:*SYNTHROID 0.088MG TAB 05/21/2018 10:10:11 AM levothyroxine 100 mcg tablet RxNorm: 684225 TAKE 1 TABLET BY MOUTH EVERY DAY , TAKE WITH AN 88 MCG TABLET 05/21/2018 Inactive Generic For:*SYNTHROID 100 MCG TABLET 05/21/2018 10:10:04 AM Vitamin D3 2,000 unit capsule RxNorm: 009831 1 Capsule(s) PO daily 05/21/2018 No Stop Date Active nadolol 20 mg tablet RxNorm: 991211 TAKE 1/2 TABLET BY MOUTH EVERY DAY 05/21/2018 05/24/2018 Inactive Generic For:*CORGARD 20 MG TABLET 05/21/2018 10:10:43 AM Ocuvite tablet RxNorm : 1 Tablet(s) PO BID 05/21/2018 09/22/2018 Inactive oxycodone 5 mg tablet RxNorm: 9880798 1 Tablet(s) PO QID as needed 05/15/2018 06/13/2018 Inactive pramipexole 0.25 mg tablet RxNorm: 363022 1 Tablet(s) PO BID 05/20/2018 Inactive Requip 0.25 mg tablet RxNorm: 315752 1 Tablet(s) PO BID 201705/03/2018 Inactive potassium chloride ER 10 mEq tablet,extended release RxNorm: 869416 1 Tablet(s) PO daily as needed when taking lasix 04/23/2018 08/20/2018 Inactive Lasix 40 mg tablet RxNorm: 862429 1 Tablet(s) PO daily as needed edema if more than 3 pounds weight loss in 48 hours 04/23/2018 07/22/2018 Inactive potassium chloride ER 10 mEq tablet,extended release RxNorm: 073354 1 Tablet(s) PO daily as needed when taking lasix 04/01/2018 04/22/2018 Inactive Lasix 40 mg tablet RxNorm: 934519 1 Tablet(s) PO daily as needed edema 04/01/2018 04/22/2018 Inactive oxycodone 5 mg tablet RxNorm: 9205646 1 Tablet(s) PO QID as needed 03/18/2018 04/16/2018 Inactive levothyroxine 88 mcg tablet RxNorm: 222023 1 Tablet(s) PO daily . Take with 100 mcg tablet. 02/19/2018 05/20/2018 Inactive spironolactone 50 mg tablet RxNorm: 976766 Tablet(s) TAKE 1 TABLET BY MOUTH DAILY 02/19/2018 05/20/2018 Inactive levothyroxine 100 mcg tablet RxNorm: 529197 1 Tablet(s) PO daily . Take with 88 mcg tablet 02/19/2018 02/18/2018 Inactive levothyroxine 88 mcg tablet RxNorm: 382568 1 Tablet(s) PO daily . Take with 100 mcg tablet. 02/19/2018 02/18/2018 Inactive levothyroxine 100 mcg tablet RxNorm: 346731 1 Tablet(s) PO daily . Take with 88 mcg tablet 02/19/2018 05/20/2018 Inactive spironolactone 25 mg tablet RxNorm: 295614 1 Tablet(s) PO daily 02/12/2018 02/18/2018 Inactive pt will let you know when she is ready for the refill oxycodone 10 mg tablet RxNorm: 0115161 1 Tablet(s) PO TID as needed 02/12/2018 03/13/2018 Inactive oxycodone 10 mg tablet RxNorm: 2727529 1 Tablet(s) PO Q6 as needed 01/22/2018 02/11/2018 Inactive spironolactone 50 mg tablet RxNorm: 755088 TAKE 1 TABLET BY MOUTH DAILY 01/05/2018 02/11/2018 Inactive Generic For:ALDACTONE 50MG 01/05/2018 8:27:46 AM Kenalog 40 mg/mL suspension for injection RxNorm: 0766051 1 Milliliter(s) Inj 12/26/2017 12/26/2017 Inactive Zithromax Z-Fransisco 250 mg tablet RxNorm: 723300 1 Tablet(s) PO UD 12/26/2017 12/30/2017 Inactive oxycodone 10 mg tablet RxNorm: 3214410 1 Tablet(s) PO Q6 as needed 11/25/2017 12/24/2017 Inactive nystatin 100,000 unit/gram topical powder RxNorm: 786403 1 Application TOP BID 11/13/2017 09/22/2018 Inactive nystatin 100,000 unit/gram topical cream RxNorm: 183605 Gram(s) TOP QID 11/12/2017 11/18/2017 Inactive nystatin 100,000 unit/gram topical cream RxNorm: 058790 Gram(s) TOP QID 11/12/2017 11/11/2017 Inactive Lasix 20 mg tablet RxNorm: 940472 1 Tablet(s) PO daily as needed edema 11/03/2017 11/07/2017 Inactive potassium chloride ER 10 mEq tablet,extended release RxNorm: 150240 1 Tablet(s) PO daily while on the lasix 11/03/201701/2018 Inactive Keflex 500 mg capsule RxNorm: 301711 1 Capsule(s) PO TID 201711/07/2017 Inactive potassium chloride ER 10 mEq tablet,extended release RxNorm: 146656 1 Tablet(s) PO daily while on the lasix 10/29/2017 Inactive Lasix 20 mg tablet RxNorm: 536629 1 Tablet(s) PO daily as needed edema 10/29/2017 10/31/2017 Inactive oxycodone 10 mg tablet RxNorm: 5004424 1 Tablet(s) PO Q6 as needed 09/29/2017 10/28/2017 Inactive levothyroxine 200 mcg tablet RxNorm: 808714 TAKE 1 TABLET BY MOUTH DAILY 09/01/2017 02/18/2018 Inactive Generic For:*SYNTHROID 0.2MG TAB 09/01/2017 8:36:32 AM Bactrim DS 800 mg-160 mg tablet RxNorm: 355107 1 Tablet(s) PO BID 08/07/2017 08/16/2017 Inactive Bactrim DS 800 mg-160 mg tablet RxNorm: 285846 1 Tablet(s) PO BID 08/07/2017 08/06/2017 Inactive oxycodone 10 mg tablet RxNorm: 9930093 1 Tablet(s) PO Q6 as needed 07/31/2017 08/29/2017 Inactive spironolactone 50 mg tablet RxNorm: 738518 1 Tablet(s) PO daily 06/30/2017 12/26/2017 Inactive Not due for a refill until next month nadolol 20 mg tablet RxNorm: 044591 1/2 Tablet(s) PO daily 11/28/2017 Inactive nadolol 20 mg tablet RxNorm: 657755 1 Tablet(s) PO daily 201609/22/2018 Inactive nadolol 20 mg tablet RxNorm: 114506 1/2 Tablet(s) PO daily 05/21/2017 Inactive oxycodone 10 mg tablet RxNorm: 6054791 1 Tablet(s) PO Q6 as needed 04/01/2017 04/30/2017 Inactive levothyroxine 200 mcg tablet RxNorm: 858066 TAKE 1 TABLET BY MOUTH DAILY 03/10/2017 08/31/2017 Inactive Generic For:*SYNTHROID 0.2MG TAB 03/10/2017 8:49:05 AM potassium chloride ER 10 mEq tablet,extended release RxNorm: 796568 1 Tablet(s) PO daily while on the lasix 02/18/2017 Inactive Lasix 20 mg tablet RxNorm: 1 Tablet(s) PO daily as needed edema 02/18/2017 02/20/2017 Inactive Keflex 500 mg capsule RxNorm: 149803 1 Capsule(s) PO TID 201602/16/2017 Inactive Lasix 20 mg tablet RxNorm: 1 Tablet(s) PO daily 201602/15/2017 Inactive potassium chloride ER 10 mEq tablet,extended release RxNorm: 852406 1 Tablet(s) PO daily while on the lasix 02/14/2017 Inactive Lasix 20 mg tablet RxNorm: 1 Tablet(s) PO daily 201602/13/2017 Inactive potassium chloride ER 10 mEq tablet,extended release RxNorm: 994475 1 Tablet(s) PO daily while on the lasix 02/14/2017 Inactive oxycodone 10 mg tablet RxNorm: 0424289 1 Tablet(s) PO Q6 as needed 02/05/2017 03/06/2017 Inactive minocycline 50 mg tablet RxNorm: 721975 1 Tablet(s) PO Q72H 12/03/2017 Inactive spironolactone 50 mg tablet RxNorm: 414180 1 Tablet(s) PO daily 12/18/2016 06/15/2017 Inactive Not due for a refill until next month oxycodone 10 mg tablet RxNorm: 2607070 1 Tablet(s) PO Q6 as needed 12/05/2016 01/03/2017 Inactive nadolol 20 mg tablet RxNorm: 313645 1 Tablet(s) PO daily 201604/15/2017 Inactive oxycodone 10 mg tablet RxNorm: 9438276 1 Tablet(s) PO Q6 as needed 09/30/2016 10/29/2016 Inactive levothyroxine 200 mcg tablet RxNorm: 731444 TAKE 1 TABLET BY MOUTH DAILY 09/12/2016 03/09/2017 Inactive Generic For:*SYNTHROID 0.2MG TAB 09/12/2016 8:41:27 AM oxycodone 10 mg tablet RxNorm: 9976858 1 Tablet(s) PO Q6 as needed 08/06/2016 09/04/2016 Inactive oxycodone 10 mg tablet RxNorm: 6083825 1 Tablet(s) PO Q6 as needed 06/10/2016 07/09/2016 Inactive oxycodone 10 mg tablet RxNorm: 1982626 1 Tablet(s) PO Q6 as needed 04/05/2016 05/04/2016 Inactive levothyroxine 200 mcg tablet RxNorm: 004215 1 Tablet(s) PO daily 03/14/2016 09/09/2016 Inactive oxycodone 10 mg tablet RxNorm: 4143352 1 Tablet(s) PO Q6 as needed 02/08/2016 03/08/2016 Inactive Kenalog 40 mg/mL suspension for injection RxNorm: 6768606 Milliliter(s) Inj 11/16/2015 11/16/2015 Inactive Zithromax Z-Fransisco 250 mg tablet RxNorm: 011761 1 Tablet(s) PO UD 11/16/2015 11/20/2015 Inactive zpack, take probiotic while on abx oxycodone 10 mg tablet RxNorm: 8416616 1 Tablet(s) PO Q6 as needed 11/16/2015 02/07/2016 Inactive ceftriaxone 500 mg solution for injection RxNorm: 8933975 Inj 11/16/2015 11/16/2015 Inactive oxycodone 10 mg tablet RxNorm: 7355371 1 Tablet(s) PO Q6 as needed 10/11/2015 11/15/2015 Inactive levothyroxine 200 mcg tablet RxNorm: 255374 1 Tablet(s) PO daily 09/14/2015 03/11/2016 Inactive oxycodone 10 mg tablet RxNorm: 5470875 1 Tablet(s) PO Q6 as needed 08/10/2015 10/10/2015 Inactive Keflex 500 mg capsule RxNorm: 953394 1 Capsule(s) PO TID 201407/03/2015 Inactive Keflex 500 mg capsule RxNorm: 463498 1 Capsule(s) PO TID 201406/25/2015 Inactive oxycodone 10 mg tablet RxNorm: 6146811 1 Tablet(s) PO Q6 as needed 04/03/2015 08/09/2015 Inactive oxycodone 10 mg tablet RxNorm: 7308092 1 Tablet(s) PO Q6 as needed 02/14/2015 04/02/2015 Inactive Keflex 500 mg capsule RxNorm: 120594 1 Capsule(s) PO TID 201401/22/2015 Inactive Culturelle 10 billion cell capsule RxNorm: 719075 1 Capsule(s) PO daily 01/16/2015 02/14/2015 Inactive Dulcolax Stool Softener (docusate) 100 mg capsule RxNorm: 8861927 1 Capsule(s) PO daily 12/05/2014 02/11/2018 Inactive [SAVINGS FOR NON-COVERED DRUGS -- BIN:[id number], PCN: [id number], Group: [id number], ID# [id number], Questions: . THIS IS NOT INSURANCE.] Claritin 10 mg tablet RxNorm: 982100 1 Tablet(s) PO daily No Start Date Active Miralax 17 gram/dose oral powder RxNorm: 908604 17 Gram(s) PO QHS No Start Date Active multivitamin tablet RxNorm: 1 Tablet(s) PO daily No Start Date Active Colace 100 mg capsule RxNorm: 2540395 1 Capsule(s) PO BID No Start Date Active PreserVision AREDS oral RxNorm: 592388 oral No Start Date Active Restasis 0.05 % eye drops in a dropperette RxNorm: 456190 1 Drop(s) OPH BID No Start Date Active Vitamin D3 2,000 unit capsule RxNorm: 289697 1 Capsule(s) PO daily No Start Date 05/20/2018 Inactive minocycline 50 mg tablet RxNorm: 557718 1 Tablet(s) PO QHS No Start Date 01/20/2017 Inactive nadolol 20 mg tablet RxNorm: 172140 1 Tablet(s) PO daily No Start Date 11/05/2016 Inactive nadolol 20 mg tablet RxNorm: 264921 1 Tablet(s) PO daily No Start Date 11/05/2016 Inactive Ocuvite tablet RxNorm : 1 Tablet(s) PO BID No Start Date 05/20/2018 Inactive oxycodone 10 mg tablet RxNorm: 6458401 1 Tablet(s) PO Q6 as needed No Start Date 02/13/2015 Inactive Dulcolax Stool Softener (docusate) 100 mg capsule RxNorm: 3989503 1 Capsule(s) PO BID No Start Date 12/04/2014 Inactive Multivitamin 50 Plus tablet RxNorm: 1 Tablet(s) PO QAM No Start Date 02/11/2018 Inactive Finacea 15 % topical gel RxNorm: 1115100 TOP No Start Date 05/24/2018 Inactive Synthroid 200mcg Oral RxNorm: oral No Start Date 09/13/2015 Inactive spironolactone 50 mg tablet RxNorm: 341990 1 Tablet(s) PO daily No Start Date 12/17/2016 Inactive spironolactone 50 mg tablet RxNorm: 022021 1 Tablet(s) PO daily No Start Date 02/11/2018 Inactive Medication Administered Medication Codes Instructions Start Date Status Kenalog 40 mg/mL suspension for injection RxNorm: 3352926 1Milliliter 12/26/2017 No longer Active ceftriaxone 500 mg solution for injection RxNorm: 0310518 11/16/2015 No longer Active Kenalog 40 mg/mL suspension for injection RxNorm: 1770805 Milliliter 11/16/2015 No longer Active Immunizations Vaccine [...] Item Item Code Result Date Free T4 Dpv313 FREE T4 1.92 ng/dL 04/24/2018 Tsh Ord6 [...] 31.1 pg 04/24/2018 Cbc With Differential Ord2 Wagoner% 13.0 % 04/24/2018 Cbc With Differential Ord2 [...] 1.00 K/ul 04/24/2018 Cbc With Differential Ord2 Wagoner ABS# 0.4 K/ul 04/24/2018 Cbc With Differential Ord2 Eos ABS# 0.0 K/ul 04/24/2018 Cbc With Differential Ord2 Baso ABS# 0.0 K/ul 04/24/2018 Comp Metabolic Gta117 NA 138 mEq/L 04/24/2018 Comp Metabolic Evj640 K 3.9 mEq/L 04/24/2018 Comp Metabolic Xrz803 CL 97 mEq/L 04/24/2018 Comp Metabolic Dwp849 CO2 32.0 mEq/L 04/24/2018 Comp Metabolic Ble518 ANION GAP 13 04/24/2018 Comp Metabolic Jbh338 GLUCOSE 194 mg/dL 04/24/2018 Comp Metabolic Xjy227 Creat 0.8 mg/dL 04/24/2018 Comp Metabolic Pil319 eGFR 70 ml/min/1.73m2 04/24/2018 Comp Metabolic Rpg861 BUN 20 mg/dL 04/24/2018 Comp Metabolic Bjm137 B/C Ratio 24.1 Ratio 04/24/2018 Comp Metabolic Awm665 CALCIUM 9.4 mg/dL 04/24/2018 Comp Metabolic Eor923 ALK PHOS 110 U/L 04/24/2018 Comp Metabolic Lht862 AST(SGOT) 33 U/L 04/24/2018 Comp Metabolic Lge082 ALT(SGPT) 16 U/L 04/24/2018 Comp Metabolic Eua283 BILI T 1.8 mg/dL 04/24/2018 Comp Metabolic Ltj792 ALBUMIN 4.0 g/dL 04/24/2018 Comp Metabolic Ufp536 TPRO 5.7 g/dL 04/24/2018 Comp Metabolic Lqo549 GLOB 1.7 g/dL 04/24/2018 Comp Metabolic Lvr361 A/G Ratio 2.3 Ratio 04/24/2018 Comp Metabolic Tqx777 Osmo 284 mOsmo 04/24/2018 Tsh Ord6 TSH (3rd IS) 0.07 uIU/mL 02/13/2018 Free T4 Egr983 FREE T4 1.85 ng/dL 02/13/2018 %Hba1C Fnz644 % HbA1c 83624-1 5.9 % 01/21/2017 %Hba1C Kwv836 Gluc Ave 123 mg/dL 01/21/2017 Comp Metabolic Gni362 NA 136 mEq/L 01/21/2017 Comp Metabolic Ank400 K 4.3 mEq/L 01/21/2017 Comp Metabolic Ist795 CL 99 mEq/L 01/21/2017 Comp Metabolic Gve472 CO2 30.0 mEq/L 01/21/2017 Comp Metabolic Rbr129 ANION GAP 11 01/21/2017 Comp Metabolic Bex010 GLUCOSE 234 mg/dL 01/21/2017 Comp Metabolic Yzz412 Creat 0.5 mg/dL 01/21/2017 Comp Metabolic Fqg100 eGFR 115 ml/min/1.73m2 01/21/2017 Comp Metabolic Qnn091 BUN 10 mg/dL 01/21/2017 Comp Metabolic Weg707 B/C Ratio 18.5 Ratio 01/21/2017 Comp Metabolic Exp998 CALCIUM 8.8 mg/dL 01/21/2017 Comp Metabolic Tkk868 ALK PHOS 74 U/L 01/21/2017 Comp Metabolic Lxs712 AST(SGOT) 28 U/L 01/21/2017 Comp Metabolic Tvg815 ALT(SGPT) 15 U/L 01/21/2017 Comp Metabolic Hlc174 BILI T 1.1 mg/dL 01/21/2017 Comp Metabolic Zag999 ALBUMIN 3.8 g/dL 01/21/2017 Comp Metabolic Agi025 TPRO 5.8 g/dL 01/21/2017 Comp Metabolic Upx323 GLOB 2.0 g/dL 01/21/2017 Comp Metabolic Urv706 A/G Ratio 1.9 Ratio 01/21/2017 Comp Metabolic Qyv821 Osmo 279 mOsmo 01/21/2017 Tsh Ord6 hTSH II 0.80 uIU/mL 04/03/2015 Bili D Ord93 BILI D 0.1 mg/dL 04/03/2015 Bili D Ord93 BILI I 0.9 mg/dL 04/03/2015 Free T4 Xuj142 FREE T4 1.27 ng/dL 04/03/2015 Cbc With [...] Ord2 RDW 15.6 % 04/03/2015 Comp Metabolic Uvd212 NA 136 mEq/L 04/03/2015 Comp Metabolic Dvj762 K 4.3 mEq/L 04/03/2015 Comp Metabolic Uyt208 CL 99 mEq/L 04/03/2015 Comp Metabolic Hlm122 CO2 29.0 mEq/L 04/03/2015 Comp Metabolic Qvb880 ANION GAP 12 04/03/2015 Comp Metabolic Bar096 GLUCOSE 120 mg/dL 04/03/2015 Comp Metabolic Xqz603 Creat 0.5 mg/dL 04/03/2015 Comp Metabolic Trv974 eGFR 118 ml/min/1.73m2 04/03/2015 Comp Metabolic Che037 BUN 11 mg/dL 04/03/2015 Comp Metabolic Ofs894 B/C Ratio 20.8 Ratio 04/03/2015 Comp Metabolic Ocg631 CALCIUM 9.3 mg/dL 04/03/2015 Comp Metabolic Wte168 ALK PHOS 61 U/L 04/03/2015 Comp Metabolic Uws576 AST(SGOT) 28 U/L 04/03/2015 Comp Metabolic Iik218 ALT(SGPT) 16 U/L 04/03/2015 Comp Metabolic Hbz652 BILI T 1.0 mg/dL 04/03/2015 Comp Metabolic Yis275 ALBUMIN 4.1 g/dL 04/03/2015 Comp Metabolic Raz995 TPRO 6.1 g/dL 04/03/2015 Comp Metabolic Fnz251 GLOB 2.0 g/dL 04/03/2015 Comp Metabolic Hpj089 A/G Ratio 2.1 Ratio 04/03/2015 Comp Metabolic Eyp933 Osmo 273 mOsmo 04/03/2015 Review of Systems [...] FLU VACC PRSV FREE INC ANTIG CPT-4: 50800 04/23/2018 TRIAMCINOLONE ACET INJ NOS CPT-4: J3301 12/26/2017 ADMIN INFLUENZA VIRUS VAC CPT-4: G0008 04/16/2017 FLU VACC PRSV FREE INC ANTIG CPT-4: 00064 04/16/2017 TRIAMCINOLONE ACET INJ NOS CPT-4: J3301 [...] Code : 8480-6 BMI: 23.6 Code : 29915-2 Heart Rate 1 : 59 bpm Height: 5'1" Respiratory Rate: 18 bpm SpO2: 99% Temperature: 37.0 (C) / 98.6 (F ) Weight: 125 lbs 04/23/2018 Blood Pressure 2: 118/62 Code : 8480-6 BMI: 22.3 Code : 33040-7 Heart Rate 1 : 73 bpm Height: 5'1" SpO2: 97% Weight: 118 lbs 04/01/2018 Blood Pressure 1: 136/72 Code : 8480-6 BMI: 26.6 Code : 32301-2 Heart Rate 1 : 75 bpm Height: 5'1" SpO2: 98% Weight: 141 lbs 03/18/2018 Blood Pressure 1: 132/62 Code : 8480-6 Heart Rate 1: 61 bpm Height: 5'1" SpO2: 96% Weight: 03/09/2018 Blood Pressure 1: 122/60 Code : 8480-6 Heart Rate 1: 65 bpm Height: 5'1" SpO2: 98% Weight: 02/12/2018 Blood Pressure 1: 100/68 Code : 8480-6 BMI: 24.3 Code : 57547-2 Heart Rate 1 : 68 bpm Height: 5'1" SpO2: 96% Weight: 128 lbs 13 oz 12/26/2017 Blood Pressure 1: 126/68 Code : 8480-6 BMI: 26.7 Code : 46709-9 Heart Rate 1 : 66 bpm Height: 5'1" SpO2: 98% Temperature: 36.8 (C) / 98.2 (F) Weight: 141 lbs 8 oz 12/04/2017 Blood Pressure 1: 132/76 Code : 8480-6 BMI: 26.5 Code : 12921-8 Heart Rate 1 : 73 bpm Height: 5'1" SpO2: 96% Weight: 140 lbs 11/13/2017 Blood Pressure 1: 126/62 Code : 8480-6 Heart Rate 1: 69 bpm Height: 5'1" SpO2: 96% Weight: 11/06/2017 Blood Pressure 1: 142/84 Code : 8480-6 BMI: 25.7 Code : 41258-2 Heart Rate 1 : 78 bpm Height: 5'1" SpO2: 95% Temperature: 36.9 (C) / 98.5 (F) Weight: 136 lbs 10/29/2017 Blood Pressure 1: 132/68 Code : 8480-6 BMI: 26.8 Code : 28967-8 Heart Rate 1 : 70 bpm Height: 5'1" SpO2: 98% Weight: 142 lbs 09/04/2017 Blood Pressure 1: 132/74 Code : 8480-6 BMI: 25.9 Code : 63710-0 Heart Rate 1 : 68 bpm Height: 5'1" SpO2: 96% Weight: 137 lbs 08/08/2017 Blood Pressure 1: 118/72 Code : 8480-6 BMI: 26.6 Code : 31384-0 Heart Rate 1 : 68 bpm Height: 5'1" SpO2: 95% Weight: 141 lbs 05/29/2017 Blood Pressure 1: 142/78 Code : 8480-6 BMI: 26.3 Code : 29718-9 Heart Rate 1 : 65 bpm Height: 5'1" SpO2: 95% Weight: 139 lbs 04/16/2017 Blood Pressure 1: 136/62 Code : 8480-6 BMI: 27.4 Code : 30590-4 Heart Rate 1 : 38 bpm Height: 5'1" SpO2: 98% Weight: 145 lbs 02/10/2017 Blood Pressure 1: 124/70 Code : 8480-6 BMI: 27.4 Code : 37508-5 Heart Rate 1 : 70 bpm Height: 5'1" SpO2: 96% Weight: 145 lbs 01/21/2017 Blood Pressure 1: 120/70 Code : 8480-6 BMI: 27.2 Code : 78105-7 Heart Rate 1 : 65 bpm Height: 5'1" SpO2: 95% Weight: 144 lbs 12/18/2016 Blood Pressure 1: 122/74 Code : 8480-6 BMI: 27.4 Code : 97964-2 Heart Rate 1 : 66 bpm Height: 5'1" SpO2: 97% Weight: 145 lbs 08/26/2016 Blood Pressure 1: 110/64 Code : 8480-6 BMI: 28.0 Code : 63860-9 Heart Rate 1 : 67 bpm Height: 5'1" SpO2: 97% Weight: 148 lbs 02/27/2016 Blood Pressure 1: 126/74 Code : 8480-6 Heart Rate 1: 67 bpm Height: 5'1" SpO2: 97% 02/19/2016 Blood Pressure 1: 130/80 Code : 8480-6 BMI: 28.2 Code : 47263-2 Heart Rate 1 : 74 bpm Height: 5'1" SpO2: 96% Weight: 149 lbs 02/08/2016 Blood Pressure 1: 122/78 Code : 8480-6 BMI: 28.2 Code : 95296-5 Heart Rate 1 : 63 bpm Height: 5'1" SpO2: 96% Weight: 149 lbs 11/16/2015 Blood Pressure 1: 128/70 Code : 8480-6 BMI: 27.8 Code : 30319-3 Heart Rate 1 : 64 bpm Height: 5'1" SpO2: 97% Weight: 147 lbs 07/18/2015 Blood Pressure 1: 110/60 Code : 8480-6 BMI: 28.5 Code : 63229-1 Heart Rate 1 : 61 bpm Height: 5'1" SpO2: 97% Weight: 151 lbs 06/27/2015 Blood Pressure 1: 122/60 Code : 8480-6 BMI: 28.9 Code : 65282-4 Heart Rate 1 : 63 bpm Height: 5'1" SpO2: 95% Weight: 153 lbs 06/19/2015 Blood Pressure 1: 120/78 Code : 8480-6 Heart Rate 1: 68 bpm SpO2: 96% Weight: 154 lbs 04/03/2015 Blood Pressure 1: 128/68 Code : 8480-6 BMI: 29.1 Code : 44311-8 Heart Rate 1 : 70 bpm Height: 5'1" SpO2: 97% Weight: 154 lbs 02/27/2015 Blood Pressure 1: 122/84 Code : 8480-6 BMI: 29.5 Code : 52852-9 Heart Rate 1 : 67 bpm Height: 5'1" SpO2: 95% Weight: 156 lbs 01/26/2015 Blood Pressure 1: 132/70 Code : 8480-6 BMI: 30.2 Code : 64610-8 Heart Rate 1 : 76 bpm Height: 5'1" Weight: 160 lbs 01/16/2015 Blood Pressure 1: 140/70 Code : 8480-6 BMI: 30.0 Code : 82773-0 Heart Rate 1 : 78 bpm Height: 5'1" Respiratory Rate: 20 bpm Weight: 159 lbs 12/05/2014 Blood Pressure 1: 138/78 Code : 8480-6 BMI: 30.8 Code : 18839-0 Heart Rate 1 : 76 bpm Height: [...] not bring in readings 2018 -Checked at [facility] Pertinent Findings edema 09/23/2018 None Quality [...] ill contacts 07/23/2018 she is in a jail Triggers recumbent position 07/23/2018 None Pertinent Findings [...] ill contacts 07/07/2018 she is in a jail Triggers recumbent position 07/07/2018 None Hospital Follow [...] ICD10: S91.311D] [facility] CPT-4: 97365 11/11/2018 [id number] EST. PATIENT, LEVEL III Diagnosis: Laceration without foreign body, right foot, initial encounter[ICD10 : S91.311A] [facility] CPT-4: 45297 10/2018 ([id number]) 60001 EST. 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 PATIENT, LEVEL IV Diagnosis: Essential (primary) hypertension[ICD10: I10] Diagnosis: Localized edema[ICD10: R60.0] Diagnosis: Atrophy of thyroid (acquired)[ICD10: E03.4] Alexandria Barron MD, [facility] CPT-4: 08044 09/23/2018 [id number] EST. PATIENT, LEVEL III Diagnosis: Essential (primary) hypertension[ICD10: I10] Diagnosis: Localized edema[ICD10: R60.0] Светлана Barron MD, [facility] CPT-4 : 19854 09/14/2018 ([id number]) [id number] EST. PATIENT, LEVEL IV Diagnosis: Essential (primary) hypertension[ICD10: I10] Diagnosis: Lymphedema, not elsewhere classified[ICD10: I89.0] Diagnosis: Other ascites[ICD10: R18.8] Alexandria Barron MD, [facility] CPT- 4: 84127 07/23/2018 ([id number]) [id number] EST. PATIENT, LEVEL IV Diagnosis: Essential (primary) hypertension[ICD10: I10] Diagnosis: Atrophy of thyroid (acquired)[ICD10: E03.4] Diagnosis: Lymphedema, not elsewhere classified[ICD10: I89.0] Alexandria Barron MD, [facility] CPT-4: 26920 07/07/2018 ([id number]) [id number] EST. PATIENT, LEVEL IV Diagnosis: Essential (primary) hypertension[ICD10: I10] Diagnosis: Localized edema[ICD10: R60.0] Alexandria Barron MD, [facility] CPT- 4: 63139 06/22/2018 ([id number]) [id number] EST. PATIENT, LEVEL IV Diagnosis: Atrophy of thyroid (acquired)[ICD10: E03.4] Diagnosis: Essential (primary) hypertension[ICD10: I10] Diagnosis: Other chronic pain[ICD10: G89.29] Diagnosis: Pain in left knee[ICD10: M25.562] Diagnosis: Low back pain[ICD10: M54.5] [facility] CPT- 4: 37897 05/25/2018 ([id number]) [id number] EST. PATIENT, LEVEL IV Diagnosis: Atrophy of thyroid (acquired)[ICD10: E03.4] Diagnosis: Essential (primary) hypertension[ICD10: I10] Diagnosis: Other chronic pain[ICD10: G89.29] Diagnosis: Pain in left knee[ICD10: M25.562] Diagnosis: Low back pain[ICD10: M54.5] Diagnosis: Other secondary thrombocytopenia[ICD10: D69.59] Diagnosis: Encounter for immunization[ICD10: Z23] [facility] CPT-4: 78025 04/23/2018 ([id number]) 76222 EST. PATIENT, LEVEL IV Diagnosis: Essential (primary) hypertension[ICD10: I10] Diagnosis: Low back pain[ICD10: M54.5] Diagnosis: Localized edema[ICD10: R60.0] Diagnosis: Other chronic pain[ICD10: G89.29] Diagnosis: Obstructive sleep apnea (adult) (pediatric)[ICD10: G47.33] [facility] CPT-4: 74041 04/01/2018 ([id number]) 56585 EST. PATIENT, LEVEL IV Diagnosis: Essential (primary) hypertension[ICD10: I10] Diagnosis: Other chronic pain[ICD10: G89.29] Diagnosis: Unsteadiness on feet[ICD10: R26.81] [facility] CPT-4: 67192 03/18/2018 ([id number]) 13690 EST. PATIENT, LEVEL IV Diagnosis: Low back pain[ICD10: M54.5] Diagnosis: Localized edema[ICD10: R60.0] Diagnosis: Essential (primary) hypertension[ICD10: I10] Diagnosis: Other chronic pain[ICD10: G89.29] Diagnosis: Pressure ulcer of left buttock, stage 1[ICD10: L89.321] Diagnosis: Obstructive sleep apnea (adult) (pediatric)[ICD10: G47.33] [facility] CPT-4: 09283 03/09/2018 ([id number]) 00316 EST. PATIENT, LEVEL IV Diagnosis: Atrophy of thyroid (acquired)[ICD10: E03.4] Diagnosis: Essential (primary) hypertension[ICD10: I10] Diagnosis: Localized edema[ICD10: R60.0] Diagnosis: Other chronic pain[ICD10: G89.29] Alexandria Barron MD, [facility] CPT-4: 67824 02/12/2018 ([id number]) 17909 EST. PATIENT, LEVEL III Diagnosis: Cough[ICD10: R05] Diagnosis: Acute bronchitis, unspecified[ICD10: J20.9] Sandra Barron MD, [facility] CPT-4: 64544 12/26/2017 ([id number]) 05171 EST. PATIENT, LEVEL IV Diagnosis: Essential (primary) hypertension[ICD10: I10] Diagnosis: Other specified noninfective disorders of lymphatic vessels and lymph nodes[ICD10: I89.8] Diagnosis: Atrophy of thyroid (acquired)[ICD10: E03.4] Alexandria Barron MD, [facility] CPT-4: 88909 12/04/2017 17012 EST. PATIENT, LEVEL III Diagnosis: Candidiasis of skin and nail[ICD10: B37.2] Светлана Barron MD, [facility] CPT-4: 43111 11/13/2017 ([id number]) 25806 EST. PATIENT, LEVEL III Diagnosis: Lymphedema, not elsewhere classified[ICD10: I89.0] Diagnosis: Low back pain[ICD10: M54.5] Diagnosis: Localized edema[ICD10: R60.0] Alexandria Barron MD, [facility] CPT- 4: 46961 11/06/2017 ([id number]) Miscellaneous no charge Diagnosis: Localized edema[ICD10: R60.0] Diagnosis: Cellulitis of right lower limb[ICD10: L03.115] Diagnosis: Cellulitis of left lower limb[ICD10: L03.116] Светлана Barron MD, [facility] CPT-4: 03915 11/03/2017 71881 EST. PATIENT, LEVEL III Diagnosis: Cellulitis of left lower limb[ICD10: L03.116] Diagnosis: Localized edema[ICD10: R60.0] Светлана Barron MD, [facility] CPT-4 : 46563 10/29/2017 ([id number]) 17536 EST. PATIENT, LEVEL IV Diagnosis: Essential (primary) hypertension[ICD10: I10] Diagnosis: Atrophy of thyroid (acquired)[ICD10: E03.4] Diagnosis: Pain in left knee[ICD10: M25.562] Diagnosis: Stiffness of left hand, not elsewhere classified[ICD10: M25.642] Diagnosis: Stiffness of right hand, not elsewhere classified[ICD10: M25.641] Alexandria Barron MD, [facility] CPT-4: 10900 09/04/2017 ([id number]) 93316 EST. PATIENT, LEVEL III Diagnosis: Other viral warts[ICD10: B07.8] Diagnosis: Other skin changes[ICD10: R23.8] Alexandria Barron MD, [facility] CPT-4: 07096 08/08/2017 ([id number]) 89776 EST. PATIENT, LEVEL IV Diagnosis: Essential (primary) hypertension[ICD10: I10] Diagnosis: Atrophy of thyroid (acquired)[ICD10: E03.4] Diagnosis: Low back pain[ICD10: M54.5] Alexandria Barron MD, [facility] CPT- 4: 90310 05/29/2017 ([id number]) 85079 EST. PATIENT, LEVEL IV Diagnosis: Essential (primary) hypertension[ICD10: I10] Diagnosis: Atrophy of thyroid (acquired)[ICD10: E03.4] Diagnosis: Encounter for immunization[ICD10: Z23] Diagnosis: Sick sinus syndrome[ICD10: I49.5] Alexandria Barron MD, [facility] CPT-4: 36460 04/16/2017 ([id number]) Miscellaneous no charge Diagnosis: Cellulitis of left lower limb[ICD10: L03.116] Светлана Barron MD, [facility] CPT-4: 09658 02/24/2017 62076 EST. PATIENT, LEVEL III Diagnosis: Cellulitis of left lower limb[ICD10: L03.116] Diagnosis: Cellulitis of right lower limb[ICD10: L03.115] Светлана Barron MD, [facility] CPT-4: 79983 02/10/2017 ([id number]) 32873 EST. PATIENT, LEVEL IV Diagnosis: Essential (primary) hypertension[ICD10: I10] Diagnosis: Other abnormal glucose[ICD10: R73.09] Diagnosis: Localized edema[ICD10: R60.0] Alexandria Barron MD, [facility] CPT- 4: 53091 01/21/2017 62935 EST. PATIENT, LEVEL IV Diagnosis: Essential (primary) hypertension[ICD10: I10] Diagnosis: Pain in left knee[ICD10: M25.562] Diagnosis: Atrophy of thyroid (acquired)[ICD10: E03.4] Alexandria Barron MD, [facility] CPT-4: 98401 12/18/2016 ([id number]) 49025 EST. PATIENT, LEVEL IV Diagnosis: Essential (primary) hypertension[ICD10: I10] Diagnosis: Pain in left knee[ICD10: M25.562] Diagnosis: Other instability, left knee[ICD10: M25.362] Diagnosis: Other chronic pain[ICD10: G89.29] Alexandria Barron MD, [facility] CPT-4: 32119 08/26/2016 ([id number]) 47193 EST. PATIENT, LEVEL III Diagnosis: Localized edema[ICD10: R60.0] Sandra Barron MD, [facility] CPT-4: 43464 02/27/2016 ([id number]) Miscellaneous no charge Diagnosis: Lymphedema, not elsewhere classified[ICD10: I89.0] Sandra Barron MD, [facility] CPT-4: 97841 02/20/2016 ([id number]) 05300 EST. PATIENT, LEVEL III Diagnosis: Contusion of left lower leg, subsequent encounter[ICD10: S80.12XD] Diagnosis: Abrasion of scalp, subsequent encounter[ICD10: S00.01XD] Diagnosis: Laceration without foreign body of left upper arm, subsequent encounter[ICD10: S41.112D] Diagnosis: Localized edema[ICD10: R60.0] Sandra Barron MD, [facility] CPT-4: 24276 02/19/2016 ([id number]) Miscellaneous no charge Diagnosis: Laceration without foreign body of left upper arm, subsequent encounter[ICD10: S41.112D] Diagnosis: Abrasion of scalp, subsequent encounter[ICD10: S00.01XD] Sandra Barron MD , [facility] CPT-4: 84109 02/12/2016 ([id number]) 39150 EST. PATIENT, LEVEL IV Diagnosis: Contusion of left lower leg, initial encounter[ICD10: S80.12XA] Diagnosis: Abrasion of scalp, initial encounter[ICD10: S00.01XA] Diagnosis: Laceration without foreign body of left upper arm, initial encounter[ ICD10: S41.112A] Diagnosis: Localized edema[ICD10: R60.0] Diagnosis: Hypothyroidism, unspecified[ICD10: E03.9] Diagnosis: Essential (primary) hypertension[ICD10: I10] Alexandria Barron MD, [facility] CPT-4: 55818 02/08/2016 ([id number]) 47555 EST. PATIENT, LEVEL IV Diagnosis: Cough[ICD10: R05] Diagnosis: Low back pain[ICD10: M54.5] Diagnosis: Allergic rhinitis due to pollen[ICD10: J30.1] Diagnosis: Acute upper respiratory infection, unspecified[ICD10: J06.9] Diagnosis: Acute bronchitis, unspecified[ICD10: J20.9] Sandra Barron MD, [facility] CPT-4: 41945 11/16/2015 ([id number]) 09866 EST. PATIENT, LEVEL IV Diagnosis: Hypothyroidism, unspecified[ICD10: E03.9] Diagnosis: Lymphedema, not elsewhere classified[ICD10: I89.0] Alexandria Barron MD, [facility] CPT-4: 32506 07/18/2015 92823 EST. PATIENT, LEVEL IV Diagnosis: Contusion of left lower leg, subsequent encounter[ICD10: S80.12XD] Diagnosis: Cellulitis of left lower limb[ICD10: L03.116] Светлана Barron MD, [facility] CPT-4: 62777 06/27/2015 37698 EST. PATIENT, LEVEL III Diagnosis: Contusion of left lower leg, initial encounter[ICD10: S80.12XA] Diagnosis: Cellulitis of left lower limb[ICD10: L03.116] Светлана Barron MD, [facility] CPT-4: 32053 06/19/2015 ([id number]) 99121 EST. 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 PATIENT, LEVEL III Diagnosis: Rosacea, acne[ICD9: 695.3] Diagnosis: Lymphedema[ICD9: 457.1] Sandra Barron MD, [facility] CPT-4: 42480 02/27/2015 ([id number]) 29768 EST. PATIENT, LEVEL III Diagnosis: Right leg swelling[ICD9: 729.81] Alexandria Barron MD, [facility] CPT-4: 74827 01/26/2015 ([id number]) 36658 EST. PATIENT, LEVEL III Diagnosis: CELLULITIS OF LEG[ICD9: 682.6] Mary Ann Barron MD, [facility] CPT-4 : 31833 01/16/2015 ([id number]) OFFICE VISIT, NEW - LEVEL 4 Diagnosis: Back pain[ICD9: 724.5] Diagnosis: Lymphedema[ICD9: 457.1] Diagnosis: Sacroiliitis[ICD9: 720.2] Diagnosis: Chronic pain[ICD9: 338.29] Diagnosis: HYPOTHYROIDISM[ICD9: 244.9] Diagnosis: Dysphagia[ICD9: 787.20] Alexandria Barron MD, [facility] CPT-4: 85360 12/05/2014 Plan of Care Planned Activity Notes [...] other acute concerns. 11/04/2018 Appointment: Светлана Garciatel: [facility] ([facility] min[facility] Complex 11/04/2018 Patient Education: Patient [...] 10 days. 10/21/2018 Appointment: Alexandria Barron WPtel: [facility] (15 min) Moderate 10/21/2018 Patient Education: Patient [...] compression wraps. 09/23/2018 Appointment: Alexandria Barron WPtel: [facility] (15 min) Moderate 09/23/2018 Patient Education: Patient [...] acute concerns. 09/14/2018 Appointment: Светлана Garcia [facility]Ptel[phone] (30 min) Complex 09/14/2018 Patient Education: Patient [...] with compression 07/23/2018 Appointment: Alexandria Barron WPtel[facility] (15 min) Moderate 07/23/2018 Patient Education: Patient [...] while seated. 07/07/2018 Appointment: Alexandria Barron WPtel: [phone] [facility] (15 min) Moderate 07/07/2018 Patient Education: Patient [...] peripheral edema. 06/22/2018 Appointment: Alexandria Barron WPtel: [phone] [facility] (15 min) Moderate 06/22/2018 Patient Education: Patient Medication Summary Completed 06/22/2018 Appointment: Alexandria Barron WPtel: [phone] [facility] (15 min) Moderate 05/27/2018 Visit Plan: Hypertension [...] understands the consequences of over-medication. 05/25/2018 Appointment: Alexanrdia Barron WPtel[phone] (15 min) Moderate 05/25/2018 Patient Education: Patient Medication Summary Completed 05/25/2018 Patient Education: Back Pain Completed 05/25/2018 Appointment: Светлана Garcia WPtel: 101 [facility] (30 min) Complex 05/15/2018 Visit Plan: Hypertension [...] in clinic. 04/23/2018 Appointment: Alexandria Barron WPtel: [address] [place], [place] [address] (15 min) Moderate 04/23/2018 Patient Education: Patient [...] pt request. 04/01/2018 Appointment: Alexandria Barron WPtel: [facility]5 [facility] (15 min) Moderate 04/01/2018 Patient Education: Patient [...] goes well. 03/18/2018 Appointment: Alexandria Barron WPtel: [facility] (15 min) Moderate 03/18/2018 Patient Education: Patient [...] on buttock. 03/09/2018 Appointment: Alexandria Barron WPtel: [facility]1 [facility] (15 min) Moderate 03/09/2018 Patient Education: Patient [...] her report. 02/12/2018 Appointment: Alexandria Barron WPtel: [facility]7 [facility] (15 min) Moderate 02/12/2018 Patient Education: Patient Medication Summary Completed 02/12/2018 Visit Plan: Bronchitis- Pt advised to increase fluids, vitamin C. Discussed natural and expected course of this diagnosis and need to alert me if symptoms do not follow expected course, or if any worse. RX sent to patient's pharmacy. 12/26/2017 Appointment: Sandra Mcdonald WPtel: [facility]8 [phone] [place] (15 min) Moderate 12/26/2017 Patient Education: [...] seated. 12/04/2017 Appointment: Alexandria Barron WPtel[phone] (30 min) Complex 12/04/2017 Patient Education: [...] discharge. 11/13/2017 Appointment: Светлана Garcia WPtel: [phone] [facility] (30 min) Complex 11/13/2017 Patient Education: Patient [...] care. 11/06/2017 Appointment: Alexandria Bar[facility] WPtel[phone] ([facility] min) Complex 11/06/2017 Patient Education: [...] edema. 10/29/2017 Appointment: Светлана Garcia [facility]Ptel[phone] (15 min) Moderate 10/29/2017 Patient [...] sample 09/04/2017 Appointment: Alexandria Barron WPtel[phone] (15 min) Moderate 09/04/2017 Patient Education: Patient Medication Summary Completed 09/04/2017 Appointment: Светлана Garcia [facility]Ptel[phone] (15 min) Moderate 08/18/2017 Visit Plan: Skin lesion on face - lesion removed with scalpel and dressed with medihoney, pt to RTC in 10 days for treatment of the lesion if not fully resolved. 08/08/2017 Appointment: Alexandria Barron WPtel: [phone] (30 min) Complex 08/08/2017 Patient Education: Patient [...] medication. 05/29/2017 Appointment: Alexandria Barron WPtel: [phone] [facility] (15 min) Moderate 05/29/2017 Patient Education: Patient Medication Summary Completed 05/29/2017 Appointment: Alexandria Barron WPtel: [phone] [facility] (15 min) Moderate 04/30/2017 Referral: Alberta Wilks [address] [place], [place] [id number] Patient informed. Referral info faxed. Completed 04/28/2017 [...] of control. 04/16/2017 Appointment: Alexandria Barron WPtel: [facility]6 [facility] (15 min) Moderate 04/16/2017 Patient Education: Patient Medication Summary Completed 04/16/2017 Care Plan: Referral Order SNOMED-CT : 212947956 Pending 04/16/2017 Visit Plan: Wound healed - no further treatment at this time. 02/24/2017 Appointment: Nurse Visit 02/24/2017 Patient Education: Patient Medication Summary Completed 02/24/2017 Appointment: Nurse Visit 02/18/2017 Appointment: Светлана Garcia WPtel: [facility]3 [facility] (30 min) Complex 02/14/2017 Visit Plan: Cellulitis - The patient was instructed in appropriate wound care. The patient was instructed to use the antibiotic as per RX. The patient is to call for any change in symptoms, increase in size of the lesion, increase in pain, worsening redness, warmth, discharge. 02/10/2017 Appointment: Светлана Garcia WPtel: [phone] [facility]6[address] (30 min) Complex 02/10/2017 Patient Education: Patient [...] intake. 01/21/2017 Appointment: Alexandria Barron WPtel: [phone] [facility] (15 min) Moderate 01/21/2017 Patient Education: Patient [...] improving. 12/18/2016 Appointment: Alexandria Barron WPtel: [phone] [facility] (15 min) Moderate 12/18/2016 Patient Education: Patient [...] to specialist 08/26/2016 Appointment: Alexandria Barron WPtel: [phone] [facility] (15 min) Moderate 08/26/2016 Patient Education: Patient Medication Summary Completed 08/26/2016 Care Plan: Referral Order SNOMED-CT : 725486236 Pending 08/26/2016 Appointment: Sandra Mcdonald WPtel: [facility]5 [phone] (30 min) Complex 03/11/2016 Visit Plan: Edema - improved-pt has been advised to elevate legs to prevent dependent edema, compression has been recommended to help to naturally decrease peripheral edema. Diuretic use has been discussed and pt has been instructed in appropriate use of such medication as necessary to further attempt to reduce peripheral edema. 02/27/2016 Appointment: Sandra Mcdonald WPtel: [facility]0 [phone] (30 min) Complex 02/27/2016 Patient Education: Patient Medication Summary Completed 02/27/2016 Appointment: Nurse Visit 02/20/2016 Patient Education: Patient Medication Summary Completed 02/20/2016 Visit Plan: Abrasion of scalp-healing well-continue wound care as directed Laceration left arm-healing well-continue wound care-may leave open to air Contusion of left hln-xcggbosua-mpkzvyzc to monitor Edema-elevate legs-follow up tomorrow for quick check of swelling 02/19/2016 Appointment: Sandra Mcdonald WPtel: [phone] [phone] [place] (15 min) Moderate 02/19/2016 Patient Education: [...] peripheral edema. 02/08/2016 Appointment: Alexandria Barron WPtel: [facility] (15 min) Moderate 02/08/2016 Patient Education: Patient [...] swelling. 07/18/2015 Appointment: Alexandria Barron WPtel: [phone] [facility] (15 min) Moderate 07/18/2015 Patient Education: Patient [...] not improving. 04/03/2015 Appointment: Alexandria Barron WPtel: [phone] [facility] (15 min) Moderate 04/03/2015 Patient Education: Patient Medication Summary Completed 04/03/2015 Visit Plan: Rosacea-continue finacea as directed-add metronidazole cream twice daily-call if symptoms do not improve or if any worse. Nxpuozmrbn-axyrvtu-nvmkroeq with wraps-no change in treatment 02/27/2015 Appointment: [...] for EGD. 12/05/2014 Appointment: Alexandria Barron WPtel: [facility] [place] ([place] New Patient 12/05/2014 Patient Education: Patient Medication Summary Completed 12/05/2014 Patient Education: Hypertension Completed 12/05/2014 Referral: Jose A Rios Referral Appointment Requested Referral: Alberta Wilks [address] [place], [place] [address] [place] Referral Appointment Requested Referral: Amarjit Veronicatel: [phone] [place] Referral Appointment Requested Referral: Jayro Wetzel WPtel: Referral Appointment Requested Instructions Comment . Left lower leg injury - The [...] a paracentesis. Lymphedema - continue with compression . Skin tear to right 5th toe [...] drainage, or any other acute concerns. . Hypertension - well controlled - [...] tamiflu 75mg daily x 10 days. . Hypothyroidism - pt with chronic hypothyroidism, [...] worse. RX sent to patient's pharmacy. . Edema - improved-pt has been advised to elevate legs to prevent dependent edema, compression has been recommended to help to naturally decrease peripheral edema. Diuretic use has been discussed and pt has been instructed in appropriate use of such medication as necessary to further attempt to reduce peripheral edema. . Cellulitis - continue with oral antibiotics as previously directed, return to clinic as previously directed, call for acute change in symptoms, worsening redness, warmth, discharge. Cream twice a day x 3 days, [...] in pain, worsening redness, warmth, discharge. . Hypertension - [...] leave open to air Contusion of left amz-yfnhwcedz-cisepqwi to monitor Edema-elevate legs-follow up tomorrow for [...] long as her home evaluation goes well. Antibiotic prescription sent to your pharmacy Take [...] - improved with lymphedema compression wraps. . Hypertension - well controlled - continue [...] high dose flu shot today in clinic. zpack rocephin and kenalog injection today in [...] pressure readings at home. Sleep apnea - [place] to go to her house to pick-up [...] continued elevation and monitoring of swelling. . Rosacea-continue finacea as directed-add metronidazole cream twice daily-call if symptoms do not improve or if any worse. Yxwuxinigr-teymoni-lksggrzr with wraps-no change in treatment . Hypertension [...] no further treatment at this time. . Hypothyroidism - pt with chronic hypothyroidism, [...] in pain, worsening redness, warmth, discharge. . Hypertension - [...] patient to keep legs elevated when seated. get labs one week before next appointment [...] discharge. Keep appt with wound care. . Dressing change-return tomorrow . Skin lesion on face - lesion removed with scalpel and dressed with maycol, pt to RTC in 10 days for treatment of the lesion if not fully resolved.
--- OUTSIDE RECORDS SUMMARY | 2018-11-23 15:17 | XMS REPORT | CCD ---
Author Author [facility] Organization [facility] Address [address] [place] [address] Phone Care Team Providers Care Language Translator Name Role Phone PP Unavailable CCM Unavailable Summary Purpose Interface Exchange Insurance Providers Payer name Policy type / Coverage type Covered green party ID Effective Begin Date Effective End Date WPS Medicare Part B Medicare Part B [id number] Unknown Unknown [facility] Medicare Part B [id number] Unknown Unknown Family history Brother Diagnosis Age At Onset Diabetes Unknown Skin cancer Unknown Father Diagnosis Age At Onset Heart disease Unknown Mother Diagnosis Age At Onset advanced age Unknown Hypothyroid Unknown Social History Social History Element Codes Description Effective Dates Living arrangements Unknown Alf VCV 09/23/2018 Marital status Unknown Single 12/05/2014 Number of children Unknown 0 12/05/2014 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/05/[address]: 6032153 Quit 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 quit 20-25 [...] Instructions gentamicin 0.3 % eye drops RxNorm: 715056 2 Drop(s) ophthalmic (eye) QID 11/09/2018 11/18/2018 Active oxycodone 5 mg tablet RxNorm: 6909254 1 Tablet(s) PO BID and 1 at noon if needed for uncontrolled pain 10/21/20182018 Active gentamicin 0.3 % eye drops RxNorm: 290830 2 Drop(s) ophthalmic (eye) QID 10/21/2018 10/30/2018 Inactive oxycodone 5 mg tablet RxNorm: 8525842 1.5 Tablet(s) PO BID 10/0510/20/2018 Inactive oxycodone 5 mg tablet RxNorm: 2848423 2 Tablet(s) PO BID 201810/04/2018 Inactive oxycodone 5 mg tablet RxNorm: 8530241 2 Tablet(s) PO BID 201809/27/2018 Inactive oxycodone 5 mg tablet RxNorm: 6536466 2 Tablet(s) PO BID 201708/29/2018 Inactive Lasix 40 mg tablet RxNorm: 780336 1 Tablet(s) PO daily as needed edema if more than 3 pounds weight gain in 48 hours 07/23/2018 11/19/2018 Active oxycodone 5 mg tablet RxNorm: 5767819 2 Tablet(s) PO BID 201707/30/2018 Inactive nadolol 20 mg tablet RxNorm: 459007 1/2 Tablet(s) PO daily No Stop Date Active oxycodone 5 mg tablet RxNorm: 8152158 2 Tablet(s) PO BID 201707/15/2018 Inactive nadolol 20 mg tablet RxNorm: 980606 1 Tablet(s) TAKE 1 TABLET BY MOUTH EVERY DAY 05/25/2018 06/21/2018 Inactive Generic For:*CORGARD 20 MG TABLET 05/21/2018 10:10: 43 AM spironolactone 50 mg tablet RxNorm: 932540 TAKE 1 TABLET BY MOUTH EVERY DAY 05/21/2018 06/03/2018 Inactive Generic For:ALDACTONE 50MG 05/21/2018 10:10:31 AM pramipexole 0.25 mg tablet RxNorm: 863336 TAKE 1 TABLET BY MOUTH TWICE DAILY 05/21/2018 06/03/2018 Inactive Generic For:MIRAPEX 0.25MG TAB 05/21/2018 10:10:48 AM levothyroxine 88 mcg tablet RxNorm: 044997 TAKE 1 TABLET BY MOUTH EVERY DAY WITH A 100MCG TABLET 05/21/2018 06/03/2018 Inactive Generic For:*SYNTHROID 0.088MG TAB 05/21/2018 10:10:11 AM levothyroxine 100 mcg tablet RxNorm: 056966 TAKE 1 TABLET BY MOUTH EVERY DAY , TAKE WITH AN 88 MCG TABLET 05/21/2018 Inactive Generic For:*SYNTHROID 100 MCG TABLET 05/21/2018 10:10:04 AM Vitamin D3 2,000 unit capsule RxNorm: 138973 1 Capsule(s) PO daily 05/21/2018 No Stop Date Active nadolol 20 mg tablet RxNorm: 461144 TAKE 1/2 TABLET BY MOUTH EVERY DAY 05/21/2018 05/24/2018 Inactive Generic For:*CORGARD 20 MG TABLET 05/21/2018 10:10:43 AM Ocuvite tablet RxNorm : 1 Tablet(s) PO BID 05/21/2018 09/22/2018 Inactive oxycodone 5 mg tablet RxNorm: 7439398 1 Tablet(s) PO QID as needed 05/15/2018 06/13/2018 Inactive pramipexole 0.25 mg tablet RxNorm: 362735 1 Tablet(s) PO BID 05/20/2018 Inactive Requip 0.25 mg tablet RxNorm: 662023 1 Tablet(s) PO BID 201705/03/2018 Inactive potassium chloride ER 10 mEq tablet,extended release RxNorm: 572031 1 Tablet(s) PO daily as needed when taking lasix 04/23/2018 08/20/2018 Inactive Lasix 40 mg tablet RxNorm: 915516 1 Tablet(s) PO daily as needed edema if more than 3 pounds weight loss in 48 hours 04/23/2018 07/22/2018 Inactive potassium chloride ER 10 mEq tablet,extended release RxNorm: 984575 1 Tablet(s) PO daily as needed when taking lasix 04/01/2018 04/22/2018 Inactive Lasix 40 mg tablet RxNorm: 480786 1 Tablet(s) PO daily as needed edema 04/01/2018 04/22/2018 Inactive oxycodone 5 mg tablet RxNorm: 4745891 1 Tablet(s) PO QID as needed 03/18/2018 04/16/2018 Inactive levothyroxine 88 mcg tablet RxNorm: 888631 1 Tablet(s) PO daily . Take with 100 mcg tablet. 02/19/2018 05/20/2018 Inactive spironolactone 50 mg tablet RxNorm: 110490 Tablet(s) TAKE 1 TABLET BY MOUTH DAILY 02/19/2018 05/20/2018 Inactive levothyroxine 100 mcg tablet RxNorm: 317586 1 Tablet(s) PO daily . Take with 88 mcg tablet 02/19/2018 02/18/2018 Inactive levothyroxine 88 mcg tablet RxNorm: 407010 1 Tablet(s) PO daily . Take with 100 mcg tablet. 02/19/2018 02/18/2018 Inactive levothyroxine 100 mcg tablet RxNorm: 397279 1 Tablet(s) PO daily . Take with 88 mcg tablet 02/19/2018 05/20/2018 Inactive spironolactone 25 mg tablet RxNorm: 569886 1 Tablet(s) PO daily 02/12/2018 02/18/2018 Inactive pt will let you know when she is ready for the refill oxycodone 10 mg tablet RxNorm: 2274855 1 Tablet(s) PO TID as needed 02/12/2018 03/13/2018 Inactive oxycodone 10 mg tablet RxNorm: 3554958 1 Tablet(s) PO Q6 as needed 01/22/2018 02/11/2018 Inactive spironolactone 50 mg tablet RxNorm: 276101 TAKE 1 TABLET BY MOUTH DAILY 01/05/2018 02/11/2018 Inactive Generic For:ALDACTONE 50MG 01/05/2018 8:27:46 AM Kenalog 40 mg/mL suspension for injection RxNorm: 7667399 1 Milliliter(s) Inj 12/26/2017 12/26/2017 Inactive Zithromax Z-Fransisco 250 mg tablet RxNorm: 898044 1 Tablet(s) PO UD 12/26/2017 12/30/2017 Inactive oxycodone 10 mg tablet RxNorm: 7935717 1 Tablet(s) PO Q6 as needed 11/25/2017 12/24/2017 Inactive nystatin 100,000 unit/gram topical powder RxNorm: 426698 1 Application TOP BID 11/13/2017 09/22/2018 Inactive nystatin 100,000 unit/gram topical cream RxNorm: 036126 Gram(s) TOP QID 11/12/2017 11/18/2017 Inactive nystatin 100,000 unit/gram topical cream RxNorm: 100618 Gram(s) TOP QID 11/12/2017 11/11/2017 Inactive Lasix 20 mg tablet RxNorm: 395089 1 Tablet(s) PO daily as needed edema 11/03/2017 11/07/2017 Inactive potassium chloride ER 10 mEq tablet,extended release RxNorm: 299084 1 Tablet(s) PO daily while on the lasix 11/03/201701/2018 Inactive Keflex 500 mg capsule RxNorm: 212786 1 Capsule(s) PO TID 201711/07/2017 Inactive potassium chloride ER 10 mEq tablet,extended release RxNorm: 974349 1 Tablet(s) PO daily while on the lasix 10/29/2017 Inactive Lasix 20 mg tablet RxNorm: 024643 1 Tablet(s) PO daily as needed edema 10/29/2017 10/31/2017 Inactive oxycodone 10 mg tablet RxNorm: 1652322 1 Tablet(s) PO Q6 as needed 09/29/2017 10/28/2017 Inactive levothyroxine 200 mcg tablet RxNorm: 012649 TAKE 1 TABLET BY MOUTH DAILY 09/01/2017 02/18/2018 Inactive Generic For:*SYNTHROID 0.2MG TAB 09/01/2017 8:36:32 AM Bactrim DS 800 mg-160 mg tablet RxNorm: 897787 1 Tablet(s) PO BID 08/07/2017 08/16/2017 Inactive Bactrim DS 800 mg-160 mg tablet RxNorm: 423637 1 Tablet(s) PO BID 08/07/2017 08/06/2017 Inactive oxycodone 10 mg tablet RxNorm: 3672605 1 Tablet(s) PO Q6 as needed 07/31/2017 08/29/2017 Inactive spironolactone 50 mg tablet RxNorm: 331829 1 Tablet(s) PO daily 06/30/2017 12/26/2017 Inactive Not due for a refill until next month nadolol 20 mg tablet RxNorm: 377594 1/2 Tablet(s) PO daily 11/28/2017 Inactive nadolol 20 mg tablet RxNorm: 583058 1 Tablet(s) PO daily 201609/22/2018 Inactive nadolol 20 mg tablet RxNorm: 505357 1/2 Tablet(s) PO daily 05/21/2017 Inactive oxycodone 10 mg tablet RxNorm: 0994000 1 Tablet(s) PO Q6 as needed 04/01/2017 04/30/2017 Inactive levothyroxine 200 mcg tablet RxNorm: 036978 TAKE 1 TABLET BY MOUTH DAILY 03/10/2017 08/31/2017 Inactive Generic For:*SYNTHROID 0.2MG TAB 03/10/2017 8:49:05 AM potassium chloride ER 10 mEq tablet,extended release RxNorm: 610396 1 Tablet(s) PO daily while on the lasix 02/18/2017 Inactive Lasix 20 mg tablet RxNorm: 1 Tablet(s) PO daily as needed edema 02/18/2017 02/20/2017 Inactive Keflex 500 mg capsule RxNorm: 732932 1 Capsule(s) PO TID 201602/16/2017 Inactive Lasix 20 mg tablet RxNorm: 1 Tablet(s) PO daily 201602/15/2017 Inactive potassium chloride ER 10 mEq tablet,extended release RxNorm: 288205 1 Tablet(s) PO daily while on the lasix 02/14/2017 Inactive Lasix 20 mg tablet RxNorm: 1 Tablet(s) PO daily 201602/13/2017 Inactive potassium chloride ER 10 mEq tablet,extended release RxNorm: 802274 1 Tablet(s) PO daily while on the lasix 02/14/2017 Inactive oxycodone 10 mg tablet RxNorm: 2621515 1 Tablet(s) PO Q6 as needed 02/05/2017 03/06/2017 Inactive minocycline 50 mg tablet RxNorm: 663026 1 Tablet(s) PO Q72H 12/03/2017 Inactive spironolactone 50 mg tablet RxNorm: 767745 1 Tablet(s) PO daily 12/18/2016 06/15/2017 Inactive Not due for a refill until next month oxycodone 10 mg tablet RxNorm: 8466081 1 Tablet(s) PO Q6 as needed 12/05/2016 01/03/2017 Inactive nadolol 20 mg tablet RxNorm: 740366 1 Tablet(s) PO daily 201604/15/2017 Inactive oxycodone 10 mg tablet RxNorm: 6873652 1 Tablet(s) PO Q6 as needed 09/30/2016 10/29/2016 Inactive levothyroxine 200 mcg tablet RxNorm: 581594 TAKE 1 TABLET BY MOUTH DAILY 09/12/2016 03/09/2017 Inactive Generic For:*SYNTHROID 0.2MG TAB 09/12/2016 8:41:27 AM oxycodone 10 mg tablet RxNorm: 5792091 1 Tablet(s) PO Q6 as needed 08/06/2016 09/04/2016 Inactive oxycodone 10 mg tablet RxNorm: 9216641 1 Tablet(s) PO Q6 as needed 06/10/2016 07/09/2016 Inactive oxycodone 10 mg tablet RxNorm: 8093893 1 Tablet(s) PO Q6 as needed 04/05/2016 05/04/2016 Inactive levothyroxine 200 mcg tablet RxNorm: 565684 1 Tablet(s) PO daily 03/14/2016 09/09/2016 Inactive oxycodone 10 mg tablet RxNorm: 6205499 1 Tablet(s) PO Q6 as needed 02/08/2016 03/08/2016 Inactive Kenalog 40 mg/mL suspension for injection RxNorm: 6572460 Milliliter(s) Inj 11/16/2015 11/16/2015 Inactive Zithromax Z-Fransisco 250 mg tablet RxNorm: 065000 1 Tablet(s) PO UD 11/16/2015 11/20/2015 Inactive zpack, take probiotic while on abx oxycodone 10 mg tablet RxNorm: 5134257 1 Tablet(s) PO Q6 as needed 11/16/2015 02/07/2016 Inactive ceftriaxone 500 mg solution for injection RxNorm: 4039779 Inj 11/16/2015 11/16/2015 Inactive oxycodone 10 mg tablet RxNorm: 6162805 1 Tablet(s) PO Q6 as needed 10/11/2015 11/15/2015 Inactive levothyroxine 200 mcg tablet RxNorm: 636074 1 Tablet(s) PO daily 09/14/2015 03/11/2016 Inactive oxycodone 10 mg tablet RxNorm: 4571536 1 Tablet(s) PO Q6 as needed 08/10/2015 10/10/2015 Inactive Keflex 500 mg capsule RxNorm: 846612 1 Capsule(s) PO TID 201407/03/2015 Inactive Keflex 500 mg capsule RxNorm: 330225 1 Capsule(s) PO TID 201406/25/2015 Inactive oxycodone 10 mg tablet RxNorm: 0490352 1 Tablet(s) PO Q6 as needed 04/03/2015 08/09/2015 Inactive oxycodone 10 mg tablet RxNorm: 7921647 1 Tablet(s) PO Q6 as needed 02/14/2015 04/02/2015 Inactive Keflex 500 mg capsule RxNorm: 338036 1 Capsule(s) PO TID 201401/22/2015 Inactive Culturelle 10 billion cell capsule RxNorm: 876174 1 Capsule(s) PO daily 01/16/2015 02/14/2015 Inactive Dulcolax Stool Softener (docusate) 100 mg capsule RxNorm: 1069842 1 Capsule(s) PO daily 12/05/2014 02/11/2018 Inactive [SAVINGS FOR NON-COVERED DRUGS -- BIN:[id number], PCN: [id number], Group: [id number], ID# [id number], Questions: . THIS IS NOT INSURANCE.] Claritin 10 mg tablet RxNorm: 947811 1 Tablet(s) PO daily No Start Date Active Miralax 17 gram/dose oral powder RxNorm: 607972 17 Gram(s) PO QHS No Start Date Active multivitamin tablet RxNorm: 1 Tablet(s) PO daily No Start Date Active Colace 100 mg capsule RxNorm: 9037656 1 Capsule(s) PO BID No Start Date Active PreserVision AREDS oral RxNorm: 130061 oral No Start Date Active Restasis 0.05 % eye drops in a dropperette RxNorm: 814545 1 Drop(s) OPH BID No Start Date Active Vitamin D3 2,000 unit capsule RxNorm: 922302 1 Capsule(s) PO daily No Start Date 05/20/2018 Inactive minocycline 50 mg tablet RxNorm: 728989 1 Tablet(s) PO QHS No Start Date 01/20/2017 Inactive nadolol 20 mg tablet RxNorm: 195062 1 Tablet(s) PO daily No Start Date 11/05/2016 Inactive nadolol 20 mg tablet RxNorm: 374244 1 Tablet(s) PO daily No Start Date 11/05/2016 Inactive Ocuvite tablet RxNorm : 1 Tablet(s) PO BID No Start Date 05/20/2018 Inactive oxycodone 10 mg tablet RxNorm: 3113219 1 Tablet(s) PO Q6 as needed No Start Date 02/13/2015 Inactive Dulcolax Stool Softener (docusate) 100 mg capsule RxNorm: 5614063 1 Capsule(s) PO BID No Start Date 12/04/2014 Inactive Multivitamin 50 Plus tablet RxNorm: 1 Tablet(s) PO QAM No Start Date 02/11/2018 Inactive Finacea 15 % topical gel RxNorm: 3767511 TOP No Start Date 05/24/2018 Inactive Synthroid 200mcg Oral RxNorm: oral No Start Date 09/13/2015 Inactive spironolactone 50 mg tablet RxNorm: 605603 1 Tablet(s) PO daily No Start Date 12/17/2016 Inactive spironolactone 50 mg tablet RxNorm: 271338 1 Tablet(s) PO daily No Start Date 02/11/2018 Inactive Medication Administered Medication Codes Instructions Start Date Status Kenalog 40 mg/mL suspension for injection RxNorm: 6211959 1Milliliter 12/26/2017 No longer Active ceftriaxone 500 mg solution for injection RxNorm: 9443364 11/16/2015 No longer Active Kenalog 40 mg/mL suspension for injection RxNorm: 0877899 Milliliter 11/16/2015 No longer Active Immunizations Vaccine Codes Date Status Influenza CVX: 141 04/23/2018 completed Influenza CVX: 141 04/16/2017 completed Influenza CVX: 141 08/26/2016 completed Assessments Condition Codes Effective Dates Laceration without foreign body, right foot, initial [...] For Visit Effective Dates Notes foot pain 11/04/2018 hypertension 10/21/2018 hypertension 09/23/2018 [...] Item Item Code Result Date Free T4 Imq263 FREE T4 1.92 ng/dL 04/24/2018 Tsh Ord6 [...] 31.1 pg 04/24/2018 Cbc With Differential Ord2 [place]% 13.0 % 04/24/2018 Cbc With Differential Ord2 [...] 1.00 K/ul 04/24/2018 Cbc With Differential Ord2 [place] ABS# 0.4 K/ul 04/24/2018 Cbc With Differential Ord2 Eos ABS# 0.0 K/ul 04/24/2018 Cbc With Differential Ord2 Baso ABS# 0.0 K/ul 04/24/2018 Comp Metabolic Bhw744 NA 138 mEq/L 04/24/2018 Comp Metabolic Ise816 K 3.9 mEq/L 04/24/2018 Comp Metabolic Fiy951 CL 97 mEq/L 04/24/2018 Comp Metabolic Jux787 CO2 32.0 mEq/L 04/24/2018 Comp Metabolic Ato721 ANION GAP 13 04/24/2018 Comp Metabolic Kvq728 GLUCOSE 194 mg/dL 04/24/2018 Comp Metabolic Mpq601 Creat 0.8 mg/dL 04/24/2018 Comp Metabolic Juf352 eGFR 70 ml/min/1.73m2 04/24/2018 Comp Metabolic Yzt733 BUN 20 mg/dL 04/24/2018 Comp Metabolic Agz942 B/C Ratio 24.1 Ratio 04/24/2018 Comp Metabolic Bng446 CALCIUM 9.4 mg/dL 04/24/2018 Comp Metabolic Lao493 ALK PHOS 110 U/L 04/24/2018 Comp Metabolic Qwt322 AST(SGOT) 33 U/L 04/24/2018 Comp Metabolic Gnd776 ALT(SGPT) 16 U/L 04/24/2018 Comp Metabolic Chr501 BILI T 1.8 mg/dL 04/24/2018 Comp Metabolic Liz101 ALBUMIN 4.0 g/dL 04/24/2018 Comp Metabolic Whg047 TPRO 5.7 g/dL 04/24/2018 Comp Metabolic Inv147 GLOB 1.7 g/dL 04/24/2018 Comp Metabolic Qcb643 A/G Ratio 2.3 Ratio 04/24/2018 Comp Metabolic Mvc434 Osmo 284 mOsmo 04/24/2018 Tsh Ord6 TSH (3rd IS) 0.07 uIU/mL 02/13/2018 Free T4 Nsf454 FREE T4 1.85 ng/dL 02/13/2018 %Hba1C Gnh413 % HbA1c 17615-2 5.9 % 01/21/2017 %Hba1C Mmk174 Gluc Ave 123 mg/dL 01/21/2017 Comp Metabolic Tfs936 NA 136 mEq/L 01/21/2017 Comp Metabolic Nxm730 K 4.3 mEq/L 01/21/2017 Comp Metabolic Dtj079 CL 99 mEq/L 01/21/2017 Comp Metabolic Enr823 CO2 30.0 mEq/L 01/21/2017 Comp Metabolic Ygq800 ANION GAP 11 01/21/2017 Comp Metabolic Ank742 GLUCOSE 234 mg/dL 01/21/2017 Comp Metabolic Hff202 Creat 0.5 mg/dL 01/21/2017 Comp Metabolic Goy178 eGFR 115 ml/min/1.73m2 01/21/2017 Comp Metabolic Wkp481 BUN 10 mg/dL 01/21/2017 Comp Metabolic Dei240 B/C Ratio 18.5 Ratio 01/21/2017 Comp Metabolic Wbh129 CALCIUM 8.8 mg/dL 01/21/2017 Comp Metabolic Dab876 ALK PHOS 74 U/L 01/21/2017 Comp Metabolic Mps016 AST(SGOT) 28 U/L 01/21/2017 Comp Metabolic Xzo527 ALT(SGPT) 15 U/L 01/21/2017 Comp Metabolic Nsv651 BILI T 1.1 mg/dL 01/21/2017 Comp Metabolic Lqs623 ALBUMIN 3.8 g/dL 01/21/2017 Comp Metabolic Wic377 TPRO 5.8 g/dL 01/21/2017 Comp Metabolic Cqt472 GLOB 2.0 g/dL 01/21/2017 Comp Metabolic Krt738 A/G Ratio 1.9 Ratio 01/21/2017 Comp Metabolic Hqu269 Osmo 279 mOsmo 01/21/2017 Tsh Ord6 hTSH II 0.80 uIU/mL 04/03/2015 Bili D Ord93 BILI D 0.1 mg/dL 04/03/2015 Bili D Ord93 BILI I 0.9 mg/dL 04/03/2015 Free T4 Lcw428 FREE T4 1.27 ng/dL 04/03/2015 Cbc With [...] Ord2 RDW 15.6 % 04/03/2015 Comp Metabolic Dmq920 NA 136 mEq/L 04/03/2015 Comp Metabolic Vvn435 K 4.3 mEq/L 04/03/2015 Comp Metabolic Szs694 CL 99 mEq/L 04/03/2015 Comp Metabolic Jwu548 CO2 29.0 mEq/L 04/03/2015 Comp Metabolic Hyt844 ANION GAP 12 04/03/2015 Comp Metabolic Ejx696 GLUCOSE 120 mg/dL 04/03/2015 Comp Metabolic Fyr439 Creat 0.5 mg/dL 04/03/2015 Comp Metabolic Fty903 eGFR 118 ml/min/1.73m2 04/03/2015 Comp Metabolic Hwr319 BUN 11 mg/dL 04/03/2015 Comp Metabolic Jgp894 B/C Ratio 20.8 Ratio 04/03/2015 Comp Metabolic Cwg434 CALCIUM 9.3 mg/dL 04/03/2015 Comp Metabolic Odq991 ALK PHOS 61 U/L 04/03/2015 Comp Metabolic Bkw145 AST(SGOT) 28 U/L 04/03/2015 Comp Metabolic Bcr165 ALT(SGPT) 16 U/L 04/03/2015 Comp Metabolic Fwj716 BILI T 1.0 mg/dL 04/03/2015 Comp Metabolic Awg855 ALBUMIN 4.1 g/dL 04/03/2015 Comp Metabolic Jhr932 TPRO 6.1 g/dL 04/03/2015 Comp Metabolic Vxb647 GLOB 2.0 g/dL 04/03/2015 Comp Metabolic Hhy607 A/G Ratio 2.1 Ratio 04/03/2015 Comp Metabolic Fwn668 Osmo 273 mOsmo 04/03/2015 Review of Systems [...] appearance 10/21/2018 None Full Exam - General 1994 Ears/Nose/Throat lips/teeth/gingiva Overall: benign lips 10/21/2018 None Full Exam - General 1994 Ears/Nose/Throat lips/teeth/gingiva Overall: normal dentition 10/21/2018 None [...] crepitus 09/23/2018 None Full Exam - General 1994 [...] hygiene 09/14/2018 None Full Exam - General 1994 Eyes conjunctiva /eyelids Overall: conjunctiva clear 09/14/2018 [...] bilaterally 03/09/2018 None Full Exam - General 1995 Respiratory respiratory effort/rhythm Overall: no retractions 03/09/2018 None Full Exam - General 1995 Respiratory respiratory effort/rhythm Overall: normal rate 03/09/2018 None Full Exam - General 1995 Cardiovascular extremities Overall: no clubbing 03/09/2018 None Full Exam - General 1995 Cardiovascular extremities Edema present: pitting 03/09/2018 None Full Exam - General 1994 Cardiovascular extremities Edema present: severity 1+ - 4 +: 1+ 03/09/2018 None Full Exam - General 1995 Cardiovascular auscultation of heart Rate: regular rate [...] age 0209/04/2017 None Full Exam - General 1995 Constitutional general appearance Hygiene/Attention to Grooming: good [...] crepitus 01/26/2015 None Full Exam - General 1995 Integument inspection of skin Location: left foot [...] FLU VACC PRSV FREE INC ANTIG CPT-4: 76237 04/23/2018 TRIAMCINOLONE ACET INJ NOS CPT-4: J3301 12/26/2017 ADMIN INFLUENZA VIRUS VAC CPT-4: G0008 04/16/2017 FLU VACC PRSV FREE INC ANTIG CPT-4: 64426 04/16/2017 TRIAMCINOLONE ACET INJ NOS CPT-4: J3301 11/16/2015 ROCEPHIN, PER 250 MG CPT-4: J0696 11/16/2015 Vital Signs Date Vital 11/04/2018 Blood Pressure 1: 118/54 Code : [...] Code : 8480-6 BMI: 23.6 Code : 45473-3 Heart Rate 1 : 59 bpm Height: 5'1" Respiratory Rate: 18 bpm SpO2: 99% Temperature: 37.0 (C) / 98.6 (F ) Weight: 125 lbs 04/23/2018 Blood Pressure 2: 118/62 Code : 8480-6 BMI: 22.3 Code : 47211-6 Heart Rate 1 : 73 bpm Height: 5'1" SpO2: 97% Weight: 118 lbs 04/01/2018 Blood Pressure 1: 136/72 Code : 8480-6 BMI: 26.6 Code : 05028-2 Heart Rate 1 : 75 bpm Height: 5'1" SpO2: 98% Weight: 141 lbs 03/18/2018 Blood Pressure 1: 132/62 Code : 8480-6 Heart Rate 1: 61 bpm Height: 5'1" SpO2: 96% Weight: 03/09/2018 Blood Pressure 1: 122/60 Code : 8480-6 Heart Rate 1: 65 bpm Height: 5'1" SpO2: 98% Weight: 02/12/2018 Blood Pressure 1: 100/68 Code : 8480-6 BMI: 24.3 Code : 31729-6 Heart Rate 1 : 68 bpm Height: 5'1" SpO2: 96% Weight: 128 lbs 13 oz 12/26/2017 Blood Pressure 1: 126/68 Code : 8480-6 BMI: 26.7 Code : 63943-6 Heart Rate 1 : 66 bpm Height: 5'1" SpO2: 98% Temperature: 36.8 (C) / 98.2 (F) Weight: 141 lbs 8 oz 12/04/2017 Blood Pressure 1: 132/76 Code : 8480-6 BMI: 26.5 Code : 18228-4 Heart Rate 1 : 73 bpm Height: 5'1" SpO2: 96% Weight: 140 lbs 11/13/2017 Blood Pressure 1: 126/62 Code : 8480-6 Heart Rate 1: 69 bpm Height: 5'1" SpO2: 96% Weight: 11/06/2017 Blood Pressure 1: 142/84 Code : 8480-6 BMI: 25.7 Code : 54700-3 Heart Rate 1 : 78 bpm Height: 5'1" SpO2: 95% Temperature: 36.9 (C) / 98.5 (F) Weight: 136 lbs 10/29/2017 Blood Pressure 1: 132/68 Code : 8480-6 BMI: 26.8 Code : 44000-1 Heart Rate 1 : 70 bpm Height: 5'1" SpO2: 98% Weight: 142 lbs 09/04/2017 Blood Pressure 1: 132/74 Code : 8480-6 BMI: 25.9 Code : 78751-9 Heart Rate 1 : 68 bpm Height: 5'1" SpO2: 96% Weight: 137 lbs 08/08/2017 Blood Pressure 1: 118/72 Code : 8480-6 BMI: 26.6 Code : 76970-2 Heart Rate 1 : 68 bpm Height: 5'1" SpO2: 95% Weight: 141 lbs 05/29/2017 Blood Pressure 1: 142/78 Code : 8480-6 BMI: 26.3 Code : 48209-8 Heart Rate 1 : 65 bpm Height: 5'1" SpO2: 95% Weight: 139 lbs 04/16/2017 Blood Pressure 1: 136/62 Code : 8480-6 BMI: 27.4 Code : 04277-9 Heart Rate 1 : 38 bpm Height: 5'1" SpO2: 98% Weight: 145 lbs 02/10/2017 Blood Pressure 1: 124/70 Code : 8480-6 BMI: 27.4 Code : 90847-4 Heart Rate 1 : 70 bpm Height: 5'1" SpO2: 96% Weight: 145 lbs 01/21/2017 Blood Pressure 1: 120/70 Code : 8480-6 BMI: 27.2 Code : 38468-4 Heart Rate 1 : 65 bpm Height: 5'1" SpO2: 95% Weight: 144 lbs 12/18/2016 Blood Pressure 1: 122/74 Code : 8480-6 BMI: 27.4 Code : 96525-8 Heart Rate 1 : 66 bpm Height: 5'1" SpO2: 97% Weight: 145 lbs 08/26/2016 Blood Pressure 1: 110/64 Code : 8480-6 BMI: 28.0 Code : 42592-8 Heart Rate 1 : 67 bpm Height: 5'1" SpO2: 97% Weight: 148 lbs 02/27/2016 Blood Pressure 1: 126/74 Code : 8480-6 Heart Rate 1: 67 bpm Height: 5'1" SpO2: 97% 02/19/2016 Blood Pressure 1: 130/80 Code : 8480-6 BMI: 28.2 Code : 45947-0 Heart Rate 1 : 74 bpm Height: 5'1" SpO2: 96% Weight: 149 lbs 02/08/2016 Blood Pressure 1: 122/78 Code : 8480-6 BMI: 28.2 Code : 28016-7 Heart Rate 1 : 63 bpm Height: 5'1" SpO2: 96% Weight: 149 lbs 11/16/2015 Blood Pressure 1: 128/70 Code : 8480-6 BMI: 27.8 Code : 62938-1 Heart Rate 1 : 64 bpm Height: 5'1" SpO2: 97% Weight: 147 lbs 07/18/2015 Blood Pressure 1: 110/60 Code : 8480-6 BMI: 28.5 Code : 49470-3 Heart Rate 1 : 61 bpm Height: 5'1" SpO2: 97% Weight: 151 lbs 06/27/2015 Blood Pressure 1: 122/60 Code : 8480-6 BMI: 28.9 Code : 74683-7 Heart Rate 1 : 63 bpm Height: 5'1" SpO2: 95% Weight: 153 lbs 06/19/2015 Blood Pressure 1: 120/78 Code : 8480-6 Heart Rate 1: 68 bpm SpO2: 96% Weight: 154 lbs 04/03/2015 Blood Pressure 1: 128/68 Code : 8480-6 BMI: 29.1 Code : 42202-3 Heart Rate 1 : 70 bpm Height: 5'1" SpO2: 97% Weight: 154 lbs 02/27/2015 Blood Pressure 1: 122/84 Code : 8480-6 BMI: 29.5 Code : 88861-9 Heart Rate 1 : 67 bpm Height: 5'1" SpO2: 95% Weight: 156 lbs 01/26/2015 Blood Pressure 1: 132/70 Code : 8480-6 BMI: 30.2 Code : 50684-5 Heart Rate 1 : 76 bpm Height: 5'1" Weight: 160 lbs 01/16/2015 Blood Pressure 1: 140/70 Code : 8480-6 BMI: 30.0 Code : 15459-4 Heart Rate 1 : 78 bpm Height: 5'1" Respiratory Rate: 20 bpm Weight: 159 lbs 12/05/2014 Blood Pressure 1: 138/78 Code : 8480-6 BMI: 30.8 Code : 66152-9 Heart Rate 1 : 76 bpm Height: 5'1" Weight: 163 lbs Functional Status No Functional Status data History of Present Illness Symptom Name Status Result Effective Date Notes Location on the right 11/04/2018 None Location [...] not bring in readings 2018 -Checked at [facility] 10/21/2018 None Pertinent Findings [...] not bring in readings 2018 -Checked at [facility] Pertinent Findings edema 09/23/2018 None Quality [...] ill contacts 07/23/2018 she is in a [facility] [employer]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 PATIENT, LEVEL IV Diagnosis: Essential (primary) hypertension[ICD10: I10] Diagnosis: Localized edema[ICD10: R60.0] Diagnosis: Atrophy of thyroid (acquired)[ICD10: E03.4] Alexandria Barron MD, [facility] CPT-4: 03556 09/23/2018 97510 EST. PATIENT, LEVEL III Diagnosis: Essential (primary) hypertension[ICD10: I10] Diagnosis: Localized edema[ICD10: R60.0] Светлана Barron MD, [facility] CPT-4 : 44892 09/14/2018 ([id number]) 99574 EST. PATIENT, LEVEL IV Diagnosis: Essential (primary) hypertension[ICD10: I10] Diagnosis: Lymphedema, not elsewhere classified[ICD10: I89.0] Diagnosis: Other ascites[ICD10: R18.8] Alexandria Barron MD, [facility] CPT- 4: 55512 07/23/2018 ([id number]) 56933 EST. PATIENT, LEVEL IV Diagnosis: Essential (primary) hypertension[ICD10: I10] Diagnosis: Atrophy of thyroid (acquired)[ICD10: E03.4] Diagnosis: Lymphedema, not elsewhere classified[ICD10: I89.0] Alexandria Barron MD, [facility] CPT-4: 48832 07/07/2018 ([id number]) 88040 EST. PATIENT, LEVEL IV Diagnosis: Essential (primary) hypertension[ICD10: I10] Diagnosis: Localized edema[ICD10: R60.0] Alexandria Barron MD, [facility] CPT- 4: 39711 06/22/2018 ([id number]) 04162 EST. 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 PATIENT, LEVEL IV Diagnosis: Essential (primary) hypertension[ICD10: I10] Diagnosis: Low back pain[ICD10: M54.5] Diagnosis: Localized edema[ICD10: R60.0] Diagnosis: Other chronic pain[ICD10: G89.29] Diagnosis: Obstructive sleep apnea (adult) (pediatric)[ICD10: G47.33] [facility] CPT-4: 41769 04/01/2018 ([id number]) 46554 EST. PATIENT, LEVEL IV Diagnosis: Essential (primary) hypertension[ICD10: I10] Diagnosis: Other chronic pain[ICD10: G89.29] Diagnosis: Unsteadiness on feet[ICD10: R26.81] [facility] CPT-4: 77959 03/18/2018 ([id number]) 63938 EST. PATIENT, LEVEL IV Diagnosis: Low back pain[ICD10: M54.5] Diagnosis: Localized edema[ICD10: R60.0] Diagnosis: Essential (primary) hypertension[ICD10: I10] Diagnosis: Other chronic pain[ICD10: G89.29] Diagnosis: Pressure ulcer of left buttock, stage 1[ICD10: L89.321] Diagnosis: Obstructive sleep apnea (adult) (pediatric)[ICD10: G47.33] [facility] CPT-4: 29191 03/09/2018 ([id number]) 65283 EST. PATIENT, LEVEL IV Diagnosis: Atrophy of thyroid (acquired)[ICD10: E03.4] Diagnosis: Essential (primary) hypertension[ICD10: I10] Diagnosis: Localized edema[ICD10: R60.0] Diagnosis: Other chronic pain[ICD10: G89.29] [facility] CPT-4: 32591 02/12/2018 ([id number]) 20224 EST. PATIENT, LEVEL III Diagnosis: Cough[ICD10: R05] Diagnosis: Acute bronchitis, unspecified[ICD10: J20.9] Sandra Barron MD, [facility] CPT-4: 50862 12/26/2017 ([id number]) 79821 EST. PATIENT, LEVEL IV Diagnosis: Essential (primary) hypertension[ICD10: I10] Diagnosis: Other specified noninfective disorders of lymphatic vessels and lymph nodes[ICD10: I89.8] Diagnosis: Atrophy of thyroid (acquired)[ICD10: E03.4] Alexandira Barron MD, [facility] CPT-4: 66805 12/04/2017 20921 EST. PATIENT, LEVEL III Diagnosis: Candidiasis of skin and nail[ICD10: B37.2] Светлана Barron MD, [facility] CPT-4: 68114 11/13/2017 ([id number]) 24342 EST. PATIENT, LEVEL III Diagnosis: Lymphedema, not elsewhere classified[ICD10: I89.0] Diagnosis: Low back pain[ICD10: M54.5] Diagnosis: Localized edema[ICD10: R60.0] Alexandria Barron MD, [facility] CPT- 4: 22426 11/06/2017 ([id number]) Miscellaneous no charge Diagnosis: Localized edema[ICD10: R60.0] Diagnosis: Cellulitis of right lower limb[ICD10: L03.115] Diagnosis: Cellulitis of left lower limb[ICD10: L03.116] Светлана Barron MD, [facility] CPT-4: 15851 11/03/2017 58915 EST. PATIENT, LEVEL III Diagnosis: Cellulitis of left lower limb[ICD10: L03.116] Diagnosis: Localized edema[ICD10: R60.0] Светлана Barron MD, [facility] CPT-4 : 08504 10/29/2017 ([id number]) 71469 EST. PATIENT, LEVEL IV Diagnosis: Essential (primary) hypertension[ICD10: I10] Diagnosis: Atrophy of thyroid (acquired)[ICD10: E03.4] Diagnosis: Pain in left knee[ICD10: M25.562] Diagnosis: Stiffness of left hand, not elsewhere classified[ICD10: M25.642] Diagnosis: Stiffness of right hand, not elsewhere classified[ICD10: M25.641] Alexandria Barron MD, [facility] CPT-4: 62345 09/04/2017 ([id number]) 67180 EST. PATIENT, LEVEL III Diagnosis: Other viral warts[ICD10: B07.8] Diagnosis: Other skin changes[ICD10: R23.8] Alexandria Barron MD, [facility] CPT-4: 96352 08/08/2017 ([id number]) 22450 EST. 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 PATIENT, LEVEL III Diagnosis: Cellulitis of left lower limb[ICD10: L03.116] Diagnosis: Cellulitis of right lower limb[ICD10: L03.115] Светлана Barron MD, [facility] CPT-4: 69004 02/10/2017 ([id number]) 29601 EST. PATIENT, LEVEL IV Diagnosis: Essential (primary) hypertension[ICD10: I10] Diagnosis: Other abnormal glucose[ICD10: R73.09] Diagnosis: Localized edema[ICD10: R60.0] Alexandria Barron MD, [facility] CPT- 4: 01101 01/21/2017 92073 EST. 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 PATIENT, LEVEL IV Diagnosis: Essential (primary) hypertension[ICD10: I10] Diagnosis: Pain in left knee[ICD10: M25.562] Diagnosis: Other instability, left knee[ICD10: M25.362] Diagnosis: Other chronic pain[ICD10: G89.29] Alexandria Barron MD, [facility] CPT-4: 95626 08/26/2016 ([id number]) 85662 EST. PATIENT, LEVEL III Diagnosis: Localized edema[ICD10: R60.0] Sandra Barron MD, [facility] CPT-4: 87267 02/27/2016 ([id number]) Miscellaneous no charge Diagnosis: Lymphedema, not elsewhere classified[ICD10: I89.0] Sandra Barron MD, [facility] CPT-4: 24173 02/20/2016 ([id number]) 38116 EST. PATIENT, LEVEL III Diagnosis: Contusion of left lower leg, subsequent encounter[ICD10: S80.12XD] Diagnosis: Abrasion of scalp, subsequent encounter[ICD10: S00.01XD] Diagnosis: Laceration without foreign body of left upper arm, subsequent encounter[ICD10: S41.112D] Diagnosis: Localized edema[ICD10: R60.0] Sandra Barron MD, [facility] CPT-4: 25519 02/19/2016 ([id number]) Miscellaneous no charge Diagnosis: Laceration without foreign body of left upper arm, subsequent encounter[ICD10: S41.112D] Diagnosis: Abrasion of scalp, subsequent encounter[ICD10: S00.01XD] Sandra Barron MD , [facility] CPT-4: 81665 02/12/2016 ([id number]) 79329 EST. PATIENT, LEVEL IV Diagnosis: Contusion of left lower leg, initial encounter[ICD10: S80.12XA] Diagnosis: Abrasion of scalp, initial encounter[ICD10: S00.01XA] Diagnosis: Laceration without foreign body of left upper arm, initial encounter[ ICD10: S41.112A] Diagnosis: Localized edema[ICD10: R60.0] Diagnosis: Hypothyroidism, unspecified[ICD10: E03.9] Diagnosis: Essential (primary) hypertension[ICD10: I10] Alexandria Barron MD, [facility] CPT-4: 70388 02/08/2016 ([id number]) 50162 EST. PATIENT, LEVEL IV Diagnosis: Cough[ICD10: R05] Diagnosis: Low back pain[ICD10: M54.5] Diagnosis: Allergic rhinitis due to pollen[ICD10: J30.1] Diagnosis: Acute upper respiratory infection, unspecified[ICD10: J06.9] Diagnosis: Acute bronchitis, unspecified[ICD10: J20.9] Sandra Barron MD, [facility] CPT-4: 98365 11/16/2015 ([id number]) 18619 EST. PATIENT, LEVEL IV Diagnosis: Hypothyroidism, unspecified[ICD10: E03.9] Diagnosis: Lymphedema, not elsewhere classified[ICD10: I89.0] Alexandria Barron MD, [facility] CPT-4: 94683 07/18/2015 06413 EST. PATIENT, LEVEL IV Diagnosis: Contusion of left lower leg, subsequent encounter[ICD10: S80.12XD] Diagnosis: Cellulitis of left lower limb[ICD10: L03.116] Светлана Barron MD, [facility] CPT-4: 77022 06/27/2015 54667 EST. PATIENT, LEVEL III Diagnosis: Contusion of left lower leg, initial encounter[ICD10: S80.12XA] Diagnosis: Cellulitis of left lower limb[ICD10: L03.116] Светлана Barron MD, [facility] CPT-4: 13025 06/19/2015 ([id number]) 14191 EST. 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 PATIENT, LEVEL III Diagnosis: Rosacea, acne[ICD9: 695.3] Diagnosis: Lymphedema[ICD9: 457.1] Sandra Barron MD, [facility] CPT-4: 29269 02/27/2015 ([id number]) 40053 EST. PATIENT, LEVEL III Diagnosis: Right leg swelling[ICD9: 729.81] Alexandria Barron MD, [facility] CPT-4: 66383 01/26/2015 ([id number]) 33049 EST. PATIENT, LEVEL III Diagnosis: CELLULITIS OF LEG[ICD9: 682.6] Mary Ann Barron MD, [facility] CPT-4 : 36197 01/16/2015 ([id number]) OFFICE VISIT, NEW - LEVEL 4 Diagnosis: Back pain[ICD9: 724.5] Diagnosis: Lymphedema[ICD9: 457.1] Diagnosis: Sacroiliitis[ICD9: 720.2] Diagnosis: Chronic pain[ICD9: 338.29] Diagnosis: HYPOTHYROIDISM[ICD9: 244.9] Diagnosis: Dysphagia[ICD9: 787.20] Alexandria Barron MD, [facility] CPT-4: 12969 12/05/2014 Plan of Care Planned Activity Notes Codes Status Date Visit Plan: Skin tear to right 5th toe - Dr. Barron in to evaluate patient - Wound Instructions - Pt was instructed to keep the wound clean, wash with antibacterial soap, use triple antibiotic ointment, call if redness, pustular drainage, or any other acute concerns. 11/04/2018 Appointment: Светлана Garcia WPtel: [address] [place], [place] [address] (30 min) [facility] 11/04/2018 Patient Education: Patient Medication Summary Completed [...] 10 days. 10/21/2018 Appointment: Alexandria Barron WPtel: [phone] [facility] (15 min) Moderate 10/21/2018 Patient Education: Patient [...] compression wraps. 09/23/2018 App[facility]ment: [phone] [place] (15 min) Moderate 09/23/2018 Patient Education: Patient [...] acute concerns. 09/14/2018 Appointment: [facility]ана [phone] [place] (30 min) Complex 09/14/2018 Patient Education: Patient [...] with compression 07/23/2018 Appointment: Alexandria Barron WPtel: [phone] [facility] (15 min) Moderate 07/23/2018 Patient Education: Patient [...] while seated. 07/07/2018 Appointment: Alexandria Barron WPtel: [phone] [facility] (15 min) Moderate 07/07/2018 Patient Education: Patient [...] peripheral edema. 06/22/2018 Appointment: Alexandria Barron WPtel: [facility]5 [facility] (15 min) Moderate 06/22/2018 Patient Education: Patient Medication Summary Completed 06/22/2018 Appointment: Alexandria Barron WPtel: [facility]5 [facility] (15 min) Moderate 05/27/2018 Visit Plan: Hypertension [...] of over-medication. 05/25/2018 Appointment: Alexandria Barron WPtel: [facility]5 [facility] (15 min) Moderate 05/25/2018 Patient Education: Patient Medication Summary Completed 05/25/2018 Patient Education: Back Pain Completed 05/25/2018 Appointment: Светлана Garcia WPtel: [facility]9 [facility] (30 min) Complex 05/15/2018 Visit Plan: Hypertension [...] in clinic. 04/23/2018 Appointment: Alexandria Bar[facility]Ptel[phone] (15 min) Moderate 04/23/2018 Patient Education: Patient [...] pt request. 04/01/2018 Appointment: Alexandria Bar[facility]el[phone] (15 min) Moderate 04/01/2018 Patient Education: Patient [...] goes well. 03/18/2018 Appointment: Alexandria Bar[facility]Ptel[phone] (15 min) Moderate 03/18/2018 Patient Education: [...] on buttock. 03/09/2018 Appointment: Alexandria Bar[facility]Ptel[phone] (15 min) Moderate 03/09/2018 Patient Education: Patient [...] report. 02/12/2018 Appointment: Alexandria Barron WPtel: [phone] [facility] (15 min) Moderate 02/12/2018 Patient Education: Patient Medication Summary Completed 02/12/2018 Visit Plan: Bronchitis- Pt advised to increase fluids, vitamin C. Discussed natural and expected course of this diagnosis and need to alert me if symptoms do not follow expected course, or if any worse. RX sent to patient's pharmacy. 12/26/2017 Appointment: Sandra Mcdonald WPtel: [facility]9 [phone] [place] (15 min) Moderate 12/26/2017 Patient Education: [...] when seated. 12/04/2017 Appointment: Alexandria Barron WPtel: [facility]5 [facility] [place] (30 min) Complex 12/04/2017 Patient Education: Patient Medication Summary Completed 12/04/2017 Visit Plan: Yeast rash - The patient was instructed in appropriate care. The patient was instructed to use the ointment as per RX. The patient is to call for any change in symptoms, increase in size of the lesion, increase in pain, worsening redness, warmth, discharge. 11/13/2017 Appointment: Светлана Garcia WPtel: [phone] [facility] (30 min) Complex 11/13/2017 Patient Education: Patient [...] wound care. 11/06/2017 Appointment: Alexandria Barron WPtel: [phone] [facility] (30 min) Complex 11/06/2017 Patient Education: Patient [...] peripheral edema. 10/29/2017 Appointment: Светлана Garcia WPtel: 101 [facility] (15 min) Moderate 10/29/2017 Patient Education: Patient [...] pennsaid sample 09/04/2017 Appointment: Alexandria Bar[facility]Ptel[phone] (15 min) Moderate 09/04/2017 Patient Education: Patient Medication Summary Completed 09/04/2017 Appointment: Светлана Garcia WPtel: [phone] [facility] (15 min) Moderate 08/18/2017 Visit Plan: Skin lesion on face - lesion removed with scalpel and dressed with medihoney, pt to RTC in 10 days for treatment of the lesion if not fully resolved. 08/08/2017 Appointment: Alexandria Barron WPtel: [phone] [place] (30 min) Complex 08/08/2017 Patient [...] over- medication. 05/29/2017 Appointment: Alexandria Barron WPtel[phone] (15 min) Moderate 05/29/2017 Patient Education: Patient Medication Summary Completed 05/29/2017 Appointment: Alexandria Barron WPtel: [facility]8 [facility] (15 min) Moderate 04/30/2017 Referral: [facility]ks [facility] Patient informed. Referral info faxed. Completed 04/28/2017 [...] of control. 04/16/2017 Appointment: Alexandria Barron WPtel: [facility]8 [facility] (15 min) Moderate 04/16/2017 Patient Education: Patient Medication Summary Completed 04/16/2017 Care Plan: Referral Order SNOMED-CT : [id number] Pending 04/16/2017 Visit Plan: Wound healed - no further treatment at this time. 02/24/2017 Appointment: Nurse Visit 02/24/2017 Patient Education: Patient Medication Summary Completed 02/24/2017 Appointment: Nurse Visit 02/18/2017 Appointment: Светлана Garcia WPtel: [facility]8 [facility] (30 min) Complex 02/14/2017 Visit Plan: Cellulitis - The patient was instructed in appropriate wound care. The patient was instructed to use the antibiotic as per RX. The patient is to call for any change in symptoms, increase in size of the lesion, increase in pain, worsening redness, warmth, discharge. 02/10/2017 Appointment: Светлана Garcia WPtel: [facility]8 [facility] (30 min) Complex 02/10/2017 [...] intake. 01/21/2017 Appointment: Alexandria Barron WPtel: [phone] [facility] (15 min) Moderate 01/21/2017 Patient Education: Patient [...] not improving. 12/18/2016 Appointment: Alexandria Barron WPtel: [facility]1 [facility] (15 min) Moderate 12/18/2016 Patient Education: Patient [...] to specialist 08/26/2016 Appointment: Alexandria Barron WPtel: [phone] [facility] [place] (15 min) Moderate 08/26/2016 Patient Education: Patient Medication Summary Completed 08/26/2016 Care Plan: Referral Order SNOMED-CT : [id number] Pending 08/26/2016 Appointment: Sandra Mcdonald WPtel: [facility]7 [phone] (30 min) Complex 03/11/2016 Visit Plan: Edema - improved-pt has been advised to elevate legs to prevent dependent edema, compression has been recommended to help to naturally decrease peripheral edema. Diuretic use has been discussed and pt has been instructed in appropriate use of such medication as necessary to further attempt to reduce peripheral edema. 02/27/2016 Appointment: Sandra Mcdonald WPtel: [facility]9 [phone] (30 min) Complex 02/27/2016 Patient Education: Patient Medication Summary Completed 02/27/2016 Appointment: Nurse Visit 02/20/2016 Patient Education: Patient Medication Summary Completed 02/20/2016 Visit Plan: Abrasion of scalp-healing well-continue wound care as directed Laceration left arm-healing well-continue wound care-may leave open to air Contusion of left qwm-tbckkojow-iriieizq to monitor Edema-elevate legs-follow up tomorrow for quick check of swelling 02/19/2016 Appointment: Sandra Mcdonald WPtel: [phone] (15 min) Moderate 02/19/2016 Patient Education: Patient [...] peripheral edema. 02/08/2016 Appointment: Alexandria Bar[facility] WPtel: [phone] (15 min) Moderate 02/08/2016 Patient Education: [...] of swelling. 07/18/2015 Appointment: Alexandria Barron WPtel: [phone] [facility] [place] (15 min) Moderate 07/18/2015 Patient Education: Patient [...] not improving. 04/03/2015 Appointment: Alexandria Barron WPtel: [facility]5 [facility] (15 min) Moderate 04/03/2015 Patient Education: Patient Medication Summary Completed 04/03/2015 Visit Plan: Rosacea-continue finacea as directed-add metronidazole cream twice daily-call if symptoms do not improve or if any worse. Hmaiaoynrf-xcivwte-aevioced with wraps-no change in treatment 02/27/2015 Appointment: [...] EGD. 12/05/2014 Appointment: Alexandria Barron WPtel: [phone] [facility] [place] (S) New Patient 12/05/2014 Patient Education: Patient Medication Summary Completed 12/05/2014 Patient Education: Hypertension Completed 12/05/2014 Referral: Jose A Rios Referral Appointment Requested Referral: Alberta Wilks [address] [facility] Referral Appointment Requested Referral: Amarjit Veronica WPtel: [phone] [place] [address] [place] Referral Appointment Requested Referral: Jayro Wetzel WPtel: Referral Appointment Requested Instructions Comment kenalog . Bronchitis- Pt advised to increase fluids, vitamin C. Discussed natural and expected course of this diagnosis and need to alert me if symptoms do not follow expected course, or if any worse. RX sent to patient's pharmacy. . Cellulitis - continue with oral antibiotics [...] paracentesis. Lymphedema - continue with compression . Abrasion of scalp-healing well-continue wound care as directed Laceration left arm-healing well-continue wound care-may leave open to air Contusion of left nab-tgykojaxf-lsivrxfc to monitor Edema-elevate legs-follow up tomorrow for [...] do not improve or if any worse. Ztrqhndtjv-uiuowtx-kkukvreu with wraps-no change in treatment . Hypertension [...]
--- OUTSIDE RECORDS SUMMARY | 2018-11-23 15:22 | XMS REPORT | CCD ---
Author Author [facility] Organization [facility] Address [address] [place] [address] Phone Care Team Providers Care Patent Clerk Name Role Phone PP Unavailable CCM Unavailable Summary Purpose Interface Exchange Insurance Providers Payer name Policy type / Coverage type Covered constitution party ID Effective Begin Date Effective End Date WPS Medicare Part B Medicare Part B [id number] Unknown Unknown [facility] Medicare Part B [id number] Unknown Unknown Family history Brother Diagnosis Age At Onset Diabetes Unknown Skin cancer Unknown Father Diagnosis Age At Onset Heart disease Unknown Mother Diagnosis Age At Onset advanced age Unknown Hypothyroid Unknown Social History Social History Element Codes Description Effective Dates Living arrangements Unknown [facility] VCV 09/23/2018 Marital status Unknown Single 12/05/2014 Number of children Unknown 0 12/05/2014 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/[address]: 2478203 Quit 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 quit 20-25 [...] Fill Instructions oxycodone 5 mg tablet RxNorm: 9043805 1 Tablet(s) PO BID and 1 at noon if needed for uncontrolled pain 10/21/20182018 Active gentamicin 0.3 % eye drops RxNorm: 146262 2 Drop(s) ophthalmic (eye) QID 10/21/2018 10/30/2018 Inactive oxycodone 5 mg tablet RxNorm: 5530187 1.5 Tablet(s) PO BID 10/0510/20/2018 Inactive oxycodone 5 mg tablet RxNorm: 5608398 2 Tablet(s) PO BID 201810/04/2018 Inactive oxycodone 5 mg tablet RxNorm: 7608989 2 Tablet(s) PO BID 201809/27/2018 Inactive oxycodone 5 mg tablet RxNorm: 4763242 2 Tablet(s) PO BID 201708/29/2018 Inactive Lasix 40 mg tablet RxNorm: 913442 1 Tablet(s) PO daily as needed edema if more than 3 pounds weight gain in 48 hours 07/23/2018 11/19/2018 Active oxycodone 5 mg tablet RxNorm: 3754752 2 Tablet(s) PO BID 201707/30/2018 Inactive nadolol 20 mg tablet RxNorm: 448878 1/2 Tablet(s) PO daily No Stop Date Active oxycodone 5 mg tablet RxNorm: 0755207 2 Tablet(s) PO BID 201707/15/2018 Inactive nadolol 20 mg tablet RxNorm: 145985 1 Tablet(s) TAKE 1 TABLET BY MOUTH EVERY DAY 05/25/2018 06/21/2018 Inactive Generic For:*CORGARD 20 MG TABLET 05/21/2018 10:10: 43 AM spironolactone 50 mg tablet RxNorm: 645614 TAKE 1 TABLET BY MOUTH EVERY DAY 05/21/2018 06/03/2018 Inactive Generic For:ALDACTONE 50MG 05/21/2018 10:10:31 AM pramipexole 0.25 mg tablet RxNorm: 830819 TAKE 1 TABLET BY MOUTH TWICE DAILY 05/21/2018 06/03/2018 Inactive Generic For:MIRAPEX 0.25MG TAB 05/21/2018 10:10:48 AM levothyroxine 88 mcg tablet RxNorm: 669225 TAKE 1 TABLET BY MOUTH EVERY DAY WITH A 100MCG TABLET 05/21/2018 06/03/2018 Inactive Generic For:*SYNTHROID 0.088MG TAB 05/21/2018 10:10:11 AM levothyroxine 100 mcg tablet RxNorm: 502376 TAKE 1 TABLET BY MOUTH EVERY DAY , TAKE WITH AN 88 MCG TABLET 05/21/2018 Inactive Generic For:*SYNTHROID 100 MCG TABLET 05/21/2018 10:10:04 AM Vitamin D3 2,000 unit capsule RxNorm: 978139 1 Capsule(s) PO daily 05/21/2018 No Stop Date Active nadolol 20 mg tablet RxNorm: 354785 TAKE 1/2 TABLET BY MOUTH EVERY DAY 05/21/2018 05/24/2018 Inactive Generic For:*CORGARD 20 MG TABLET 05/21/2018 10:10:43 AM Ocuvite tablet RxNorm : 1 Tablet(s) PO BID 05/21/2018 09/22/2018 Inactive oxycodone 5 mg tablet RxNorm: 3898718 1 Tablet(s) PO QID as needed 05/15/2018 06/13/2018 Inactive pramipexole 0.25 mg tablet RxNorm: 077917 1 Tablet(s) PO BID 05/20/2018 Inactive Requip 0.25 mg tablet RxNorm: 021612 1 Tablet(s) PO BID 201705/03/2018 Inactive potassium chloride ER 10 mEq tablet,extended release RxNorm: 299659 1 Tablet(s) PO daily as needed when taking lasix 04/23/2018 08/20/2018 Inactive Lasix 40 mg tablet RxNorm: 604949 1 Tablet(s) PO daily as needed edema if more than 3 pounds weight loss in 48 hours 04/23/2018 07/22/2018 Inactive potassium chloride ER 10 mEq tablet,extended release RxNorm: 564385 1 Tablet(s) PO daily as needed when taking lasix 04/01/2018 04/22/2018 Inactive Lasix 40 mg tablet RxNorm: 889126 1 Tablet(s) PO daily as needed edema 04/01/2018 04/22/2018 Inactive oxycodone 5 mg tablet RxNorm: 0236514 1 Tablet(s) PO QID as needed 03/18/2018 04/16/2018 Inactive levothyroxine 88 mcg tablet RxNorm: 673464 1 Tablet(s) PO daily . Take with 100 mcg tablet. 02/19/2018 05/20/2018 Inactive spironolactone 50 mg tablet RxNorm: 068760 Tablet(s) TAKE 1 TABLET BY MOUTH DAILY 02/19/2018 05/20/2018 Inactive levothyroxine 100 mcg tablet RxNorm: 497040 1 Tablet(s) PO daily . Take with 88 mcg tablet 02/19/2018 02/18/2018 Inactive levothyroxine 88 mcg tablet RxNorm: 343682 1 Tablet(s) PO daily . Take with 100 mcg tablet. 02/19/2018 02/18/2018 Inactive levothyroxine 100 mcg tablet RxNorm: 778170 1 Tablet(s) PO daily . Take with 88 mcg tablet 02/19/2018 05/20/2018 Inactive spironolactone 25 mg tablet RxNorm: 616189 1 Tablet(s) PO daily 02/12/2018 02/18/2018 Inactive pt will let you know when she is ready for the refill oxycodone 10 mg tablet RxNorm: 9426054 1 Tablet(s) PO TID as needed 02/12/2018 03/13/2018 Inactive oxycodone 10 mg tablet RxNorm: 5504744 1 Tablet(s) PO Q6 as needed 01/22/2018 02/11/2018 Inactive spironolactone 50 mg tablet RxNorm: 169736 TAKE 1 TABLET BY MOUTH DAILY 01/05/2018 02/11/2018 Inactive Generic For:ALDACTONE 50MG 01/05/2018 8:27:46 AM Kenalog 40 mg/mL suspension for injection RxNorm: 4295896 1 Milliliter(s) Inj 12/26/2017 12/26/2017 Inactive Zithromax Z-Fransisco 250 mg tablet RxNorm: 606800 1 Tablet(s) PO UD 12/26/2017 12/30/2017 Inactive oxycodone 10 mg tablet RxNorm: 1820444 1 Tablet(s) PO Q6 as needed 11/25/2017 12/24/2017 Inactive nystatin 100,000 unit/gram topical powder RxNorm: 675217 1 Application TOP BID 11/13/2017 09/22/2018 Inactive nystatin 100,000 unit/gram topical cream RxNorm: 746889 Gram(s) TOP QID 11/12/2017 11/18/2017 Inactive nystatin 100,000 unit/gram topical cream RxNorm: 894712 Gram(s) TOP QID 11/12/2017 11/11/2017 Inactive Lasix 20 mg tablet RxNorm: 787614 1 Tablet(s) PO daily as needed edema 11/03/2017 11/07/2017 Inactive potassium chloride ER 10 mEq tablet,extended release RxNorm: 354836 1 Tablet(s) PO daily while on the lasix 11/03/201701/2018 Inactive Keflex 500 mg capsule RxNorm: 404052 1 Capsule(s) PO TID 201711/07/2017 Inactive potassium chloride ER 10 mEq tablet,extended release RxNorm: 809764 1 Tablet(s) PO daily while on the lasix 10/29/2017 Inactive Lasix 20 mg tablet RxNorm: 715381 1 Tablet(s) PO daily as needed edema 10/29/2017 10/31/2017 Inactive oxycodone 10 mg tablet RxNorm: 9837678 1 Tablet(s) PO Q6 as needed 09/29/2017 10/28/2017 Inactive levothyroxine 200 mcg tablet RxNorm: 275019 TAKE 1 TABLET BY MOUTH DAILY 09/01/2017 02/18/2018 Inactive Generic For:*SYNTHROID 0.2MG TAB 09/01/2017 8:36:32 AM Bactrim DS 800 mg-160 mg tablet RxNorm: 613548 1 Tablet(s) PO BID 08/07/2017 08/16/2017 Inactive Bactrim DS 800 mg-160 mg tablet RxNorm: 977998 1 Tablet(s) PO BID 08/07/2017 08/06/2017 Inactive oxycodone 10 mg tablet RxNorm: 8859412 1 Tablet(s) PO Q6 as needed 07/31/2017 08/29/2017 Inactive spironolactone 50 mg tablet RxNorm: 123562 1 Tablet(s) PO daily 06/30/2017 12/26/2017 Inactive Not due for a refill until next month nadolol 20 mg tablet RxNorm: 722341 1/2 Tablet(s) PO daily 11/28/2017 Inactive nadolol 20 mg tablet RxNorm: 423694 1 Tablet(s) PO daily 201609/22/2018 Inactive nadolol 20 mg tablet RxNorm: 357849 1/2 Tablet(s) PO daily 05/21/2017 Inactive oxycodone 10 mg tablet RxNorm: 9135084 1 Tablet(s) PO Q6 as needed 04/01/2017 04/30/2017 Inactive levothyroxine 200 mcg tablet RxNorm: 480403 TAKE 1 TABLET BY MOUTH DAILY 03/10/2017 08/31/2017 Inactive Generic For:*SYNTHROID 0.2MG TAB 03/10/2017 8:49:05 AM potassium chloride ER 10 mEq tablet,extended release RxNorm: 805356 1 Tablet(s) PO daily while on the lasix 02/18/2017 Inactive Lasix 20 mg tablet RxNorm: 483514 1 Tablet(s) PO daily as needed edema 02/18/2017 02/20/2017 Inactive Keflex 500 mg capsule RxNorm: 106737 1 Capsule(s) PO TID 201602/16/2017 Inactive Lasix 20 mg tablet RxNorm: 549148 1 Tablet(s) PO daily 201602/15/2017 Inactive potassium chloride ER 10 mEq tablet,extended release RxNorm: 277923 1 Tablet(s) PO daily while on the lasix 02/14/2017 Inactive Lasix 20 mg tablet RxNorm: 866309 1 Tablet(s) PO daily 201602/13/2017 Inactive potassium chloride ER 10 mEq tablet,extended release RxNorm: 960739 1 Tablet(s) PO daily while on the lasix 02/14/2017 Inactive oxycodone 10 mg tablet RxNorm: 8490019 1 Tablet(s) PO Q6 as needed 02/05/2017 03/06/2017 Inactive minocycline 50 mg tablet RxNorm: 698246 1 Tablet(s) PO Q72H 12/03/2017 Inactive spironolactone 50 mg tablet RxNorm: 873473 1 Tablet(s) PO daily 12/18/2016 06/15/2017 Inactive Not due for a refill until next month oxycodone 10 mg tablet RxNorm: 4311622 1 Tablet(s) PO Q6 as needed 12/05/2016 01/03/2017 Inactive nadolol 20 mg tablet RxNorm: 076032 1 Tablet(s) PO daily 201604/15/2017 Inactive oxycodone 10 mg tablet RxNorm: 8227073 1 Tablet(s) PO Q6 as needed 09/30/2016 10/29/2016 Inactive levothyroxine 200 mcg tablet RxNorm: 051680 TAKE 1 TABLET BY MOUTH DAILY 09/12/2016 03/09/2017 Inactive Generic For:*SYNTHROID 0.2MG TAB 09/12/2016 8:41:27 AM oxycodone 10 mg tablet RxNorm: 8536241 1 Tablet(s) PO Q6 as needed 08/06/2016 09/04/2016 Inactive oxycodone 10 mg tablet RxNorm: 0573766 1 Tablet(s) PO Q6 as needed 06/10/2016 07/09/2016 Inactive oxycodone 10 mg tablet RxNorm: 5338278 1 Tablet(s) PO Q6 as needed 04/05/2016 05/04/2016 Inactive levothyroxine 200 mcg tablet RxNorm: 284913 1 Tablet(s) PO daily 03/14/2016 09/09/2016 Inactive oxycodone 10 mg tablet RxNorm: 3481213 1 Tablet(s) PO Q6 as needed 02/08/2016 03/08/2016 Inactive Kenalog 40 mg/mL suspension for injection RxNorm: 9072089 Milliliter(s) Inj 11/16/2015 11/16/2015 Inactive Zithromax Z-Fransisco 250 mg tablet RxNorm: 513465 1 Tablet(s) PO UD 11/16/2015 11/20/2015 Inactive zpack, take probiotic while on abx oxycodone 10 mg tablet RxNorm: 6362178 1 Tablet(s) PO Q6 as needed 11/16/2015 02/07/2016 Inactive ceftriaxone 500 mg solution for injection RxNorm: 1519506 Inj 11/16/2015 11/16/2015 Inactive oxycodone 10 mg tablet RxNorm: 0751302 1 Tablet(s) PO Q6 as needed 10/11/2015 11/15/2015 Inactive levothyroxine 200 mcg tablet RxNorm: 236147 1 Tablet(s) PO daily 09/14/2015 03/11/2016 Inactive oxycodone 10 mg tablet RxNorm: 2135083 1 Tablet(s) PO Q6 as needed 08/10/2015 10/10/2015 Inactive Keflex 500 mg capsule RxNorm: 913861 1 Capsule(s) PO TID 201407/03/2015 Inactive Keflex 500 mg capsule RxNorm: 535442 1 Capsule(s) PO TID 201406/25/2015 Inactive oxycodone 10 mg tablet RxNorm: 6735312 1 Tablet(s) PO Q6 as needed 04/03/2015 08/09/2015 Inactive oxycodone 10 mg tablet RxNorm: 1756276 1 Tablet(s) PO Q6 as needed 02/14/2015 04/02/2015 Inactive Keflex 500 mg capsule RxNorm: 211183 1 Capsule(s) PO TID 201401/22/2015 Inactive Culturelle 10 billion cell capsule RxNorm: 269179 1 Capsule(s) PO daily 01/16/2015 02/14/2015 Inactive Dulcolax Stool Softener (docusate) 100 mg capsule RxNorm: 6909640 1 Capsule(s) PO daily 12/05/2014 02/11/2018 Inactive [SAVINGS FOR NON-COVERED DRUGS -- BIN:[id number], PCN: [id number], Group: [id number], ID# [id number], Questions: . THIS IS NOT INSURANCE.] Claritin 10 mg tablet RxNorm: 719376 1 Tablet(s) PO daily No Start Date Active Miralax 17 gram/dose oral powder RxNorm: 095012 17 Gram(s) PO QHS No Start Date Active multivitamin tablet RxNorm: 1 Tablet(s) PO daily No Start Date Active Colace 100 mg capsule RxNorm: 2363107 1 Capsule(s) PO BID No Start Date Active PreserVision AREDS oral RxNorm: 637172 oral No Start Date Active Restasis 0.05 % eye drops in a dropperette RxNorm: 393630 1 Drop(s) OPH BID No Start Date Active Vitamin D3 2,000 unit capsule RxNorm: 002167 1 Capsule(s) PO daily No Start Date 05/20/2018 Inactive minocycline 50 mg tablet RxNorm: 610253 1 Tablet(s) PO QHS No Start Date 01/20/2017 Inactive nadolol 20 mg tablet RxNorm: 230295 1 Tablet(s) PO daily No Start Date 11/05/2016 Inactive nadolol 20 mg tablet RxNorm: 823798 1 Tablet(s) PO daily No Start Date 11/05/2016 Inactive Ocuvite tablet RxNorm : 1 Tablet(s) PO BID No Start Date 05/20/2018 Inactive oxycodone 10 mg tablet RxNorm: 6225682 1 Tablet(s) PO Q6 as needed No Start Date 02/13/2015 Inactive Dulcolax Stool Softener (docusate) 100 mg capsule RxNorm: 6184901 1 Capsule(s) PO BID No Start Date 12/04/2014 Inactive Multivitamin 50 Plus tablet RxNorm: 1 Tablet(s) PO QAM No Start Date 02/11/2018 Inactive Finacea 15 % topical gel RxNorm: 2490417 TOP No Start Date 05/24/2018 Inactive Synthroid 200mcg Oral RxNorm: oral No Start Date 09/13/2015 Inactive spironolactone 50 mg tablet RxNorm: 425570 1 Tablet(s) PO daily No Start Date 12/17/2016 Inactive spironolactone 50 mg tablet RxNorm: 737068 1 Tablet(s) PO daily No Start Date 02/11/2018 Inactive Medication Administered Medication Codes Instructions Start Date Status Kenalog 40 mg/mL suspension for injection RxNorm: 3689562 1Milliliter 12/26/2017 No longer Active ceftriaxone 500 mg solution for injection RxNorm: 5945534 11/16/2015 No longer Active Kenalog 40 mg/mL suspension for injection RxNorm: 5335881 Milliliter 11/16/2015 No longer Active Immunizations Vaccine [...] Item Item Code Result Date Free T4 Esz161 FREE T4 1.92 ng/dL 04/24/2018 Tsh Ord6 [...] 31.1 pg 04/24/2018 Cbc With Differential Ord2 [place]% 13.0 % 04/24/2018 Cbc With Differential Ord2 [...] 1.00 K/ul 04/24/2018 Cbc With Differential Ord2 [place] ABS# 0.4 K/ul 04/24/2018 Cbc With Differential Ord2 Eos ABS# 0.0 K/ul 04/24/2018 Cbc With Differential Ord2 Baso ABS# 0.0 K/ul 04/24/2018 Comp Metabolic Cux568 NA 138 mEq/L 04/24/2018 Comp Metabolic Nvd407 K 3.9 mEq/L 04/24/2018 Comp Metabolic Ncf069 CL 97 mEq/L 04/24/2018 Comp Metabolic Iat590 CO2 32.0 mEq/L 04/24/2018 Comp Metabolic Lmh086 ANION GAP 13 04/24/2018 Comp Metabolic Jgh601 GLUCOSE 194 mg/dL 04/24/2018 Comp Metabolic Krq309 Creat 0.8 mg/dL 04/24/2018 Comp Metabolic Myj932 eGFR 70 ml/min/1.73m2 04/24/2018 Comp Metabolic Acl986 BUN 20 mg/dL 04/24/2018 Comp Metabolic Uke372 B/C Ratio 24.1 Ratio 04/24/2018 Comp Metabolic Ilh430 CALCIUM 9.4 mg/dL 04/24/2018 Comp Metabolic Jot192 ALK PHOS 110 U/L 04/24/2018 Comp Metabolic Tfj259 AST(SGOT) 33 U/L 04/24/2018 Comp Metabolic Zvz028 ALT(SGPT) 16 U/L 04/24/2018 Comp Metabolic Rls658 BILI T 1.8 mg/dL 04/24/2018 Comp Metabolic Fto171 ALBUMIN 4.0 g/dL 04/24/2018 Comp Metabolic Yvk122 TPRO 5.7 g/dL 04/24/2018 Comp Metabolic Umi380 GLOB 1.7 g/dL 04/24/2018 Comp Metabolic Uit629 A/G Ratio 2.3 Ratio 04/24/2018 Comp Metabolic Kur547 Osmo 284 mOsmo 04/24/2018 Tsh Ord6 TSH (3rd IS) 0.07 uIU/mL 02/13/2018 Free T4 Upm166 FREE T4 1.85 ng/dL 02/13/2018 %Hba1C Ayp238 % HbA1c 19188-1 5.9 % 01/21/2017 %Hba1C Hpt455 Gluc Ave 123 mg/dL 01/21/2017 Comp Metabolic Ubf786 NA 136 mEq/L 01/21/2017 Comp Metabolic Uxv711 K 4.3 mEq/L 01/21/2017 Comp Metabolic Avc775 CL 99 mEq/L 01/21/2017 Comp Metabolic Qmk317 CO2 30.0 mEq/L 01/21/2017 Comp Metabolic Cue973 ANION GAP 11 01/21/2017 Comp Metabolic Xfy743 GLUCOSE 234 mg/dL 01/21/2017 Comp Metabolic Yum782 Creat 0.5 mg/dL 01/21/2017 Comp Metabolic Szm080 eGFR 115 ml/min/1.73m2 01/21/2017 Comp Metabolic Buq967 BUN 10 mg/dL 01/21/2017 Comp Metabolic Zbh112 B/C Ratio 18.5 Ratio 01/21/2017 Comp Metabolic Zqq840 CALCIUM 8.8 mg/dL 01/21/2017 Comp Metabolic Vtz253 ALK PHOS 74 U/L 01/21/2017 Comp Metabolic Yqy185 AST(SGOT) 28 U/L 01/21/2017 Comp Metabolic Mdt786 ALT(SGPT) 15 U/L 01/21/2017 Comp Metabolic Wfu132 BILI T 1.1 mg/dL 01/21/2017 Comp Metabolic Eeg670 ALBUMIN 3.8 g/dL 01/21/2017 Comp Metabolic Wzd061 TPRO 5.8 g/dL 01/21/2017 Comp Metabolic Stn417 GLOB 2.0 g/dL 01/21/2017 Comp Metabolic Vek327 A/G Ratio 1.9 Ratio 01/21/2017 Comp Metabolic Ihv555 Osmo 279 mOsmo 01/21/2017 Tsh Ord6 hTSH II 0.80 uIU/mL 04/03/2015 Bili D Ord93 BILI D 0.1 mg/dL 04/03/2015 Bili D Ord93 BILI I 0.9 mg/dL 04/03/2015 Free T4 Uzj201 FREE T4 1.27 ng/dL 04/03/2015 Cbc With [...] Ord2 RDW 15.6 % 04/03/2015 Comp Metabolic Ktx484 NA 136 mEq/L 04/03/2015 Comp Metabolic Xat641 K 4.3 mEq/L 04/03/2015 Comp Metabolic Ulb991 CL 99 mEq/L 04/03/2015 Comp Metabolic Zpq931 CO2 29.0 mEq/L 04/03/2015 Comp Metabolic Qfa071 ANION GAP 12 04/03/2015 Comp Metabolic Ife688 GLUCOSE 120 mg/dL 04/03/2015 Comp Metabolic Vbq143 Creat 0.5 mg/dL 04/03/2015 Comp Metabolic Afr096 eGFR 118 ml/min/1.73m2 04/03/2015 Comp Metabolic Ity152 BUN 11 mg/dL 04/03/2015 Comp Metabolic Dzj593 B/C Ratio 20.8 Ratio 04/03/2015 Comp Metabolic Ehw902 CALCIUM 9.3 mg/dL 04/03/2015 Comp Metabolic Zaa641 ALK PHOS 61 U/L 04/03/2015 Comp Metabolic Lhe929 AST(SGOT) 28 U/L 04/03/2015 Comp Metabolic Itj948 ALT(SGPT) 16 U/L 04/03/2015 Comp Metabolic Pzd204 BILI T 1.0 mg/dL 04/03/2015 Comp Metabolic Exf920 ALBUMIN 4.1 g/dL 04/03/2015 Comp Metabolic Wgq262 TPRO 6.1 g/dL 04/03/2015 Comp Metabolic Lgf502 GLOB 2.0 g/dL 04/03/2015 Comp Metabolic Qdl778 A/G Ratio 2.1 Ratio 04/03/2015 Comp Metabolic Diz732 Osmo 273 mOsmo 04/03/2015 Review of Systems [...] appearance 09/23/2018 None Full Exam - General 1995 Ears/Nose/Throat lips/teeth/gingiva Overall: benign lips 09/23/2018 None [...] accomodation 12/04/2017 None Full Exam - General 1995 Ears/Nose/Throat external ear Overall: normal appearance 12/04/2017 [...] hygiene 09/04/2017 None Full Exam - General 1994 Eyes conjunctiva /eyelids Overall: conjunctiva clear 09/04/2017 None Full Exam - General 1995 Eyes conjunctiva /eyelids Overall: cornea clear 09/04/2017 None Full Exam - General 1995 Eyes conjunctiva /eyelids Overall: eyelids normal 09/04/2017 None Full Exam - General 1995 Eyes pupils and irises Overall: pupils equal, [...] FLU VACC PRSV FREE INC ANTIG CPT-4: 98823 04/23/2018 TRIAMCINOLONE ACET INJ NOS CPT-4: J3301 12/26/2017 ADMIN INFLUENZA VIRUS VAC CPT-4: G0008 04/16/2017 FLU VACC PRSV FREE INC ANTIG CPT-4: 15064 04/16/2017 TRIAMCINOLONE ACET INJ NOS CPT-4: J3301 [...] Code : 8480-6 BMI: 23.6 Code : 40809-8 Heart Rate 1 : 59 bpm Height: 5'1" Respiratory Rate: 18 bpm SpO2: 99% Temperature: 37.0 (C) / 98.6 (F ) Weight: 125 lbs 04/23/2018 Blood Pressure 2: 118/62 Code : 8480-6 BMI: 22.3 Code : 87276-6 Heart Rate 1 : 73 bpm Height: 5'1" SpO2: 97% Weight: 118 lbs 04/01/2018 Blood Pressure 1: 136/72 Code : 8480-6 BMI: 26.6 Code : 14969-6 Heart Rate 1 : 75 bpm Height: 5'1" SpO2: 98% Weight: 141 lbs 03/18/2018 Blood Pressure 1: 132/62 Code : 8480-6 Heart Rate 1: 61 bpm Height: 5'1" SpO2: 96% Weight: 03/09/2018 Blood Pressure 1: 122/60 Code : 8480-6 Heart Rate 1: 65 bpm Height: 5'1" SpO2: 98% Weight: 02/12/2018 Blood Pressure 1: 100/68 Code : 8480-6 BMI: 24.3 Code : 75499-1 Heart Rate 1 : 68 bpm Height: 5'1" SpO2: 96% Weight: 128 lbs 13 oz 12/26/2017 Blood Pressure 1: 126/68 Code : 8480-6 BMI: 26.7 Code : 56221-3 Heart Rate 1 : 66 bpm Height: 5'1" SpO2: 98% Temperature: 36.8 (C) / 98.2 (F) Weight: 141 lbs 8 oz 12/04/2017 Blood Pressure 1: 132/76 Code : 8480-6 BMI: 26.5 Code : 63430-5 Heart Rate 1 : 73 bpm Height: 5'1" SpO2: 96% Weight: 140 lbs 11/13/2017 Blood Pressure 1: 126/62 Code : 8480-6 Heart Rate 1: 69 bpm Height: 5'1" SpO2: 96% Weight: 11/06/2017 Blood Pressure 1: 142/84 Code : 8480-6 BMI: 25.7 Code : 43094-2 Heart Rate 1 : 78 bpm Height: 5'1" SpO2: 95% Temperature: 36.9 (C) / 98.5 (F) Weight: 136 lbs 10/29/2017 Blood Pressure 1: 132/68 Code : 8480-6 BMI: 26.8 Code : 24406-4 Heart Rate 1 : 70 bpm Height: 5'1" SpO2: 98% Weight: 142 lbs 09/04/2017 Blood Pressure 1: 132/74 Code : 8480-6 BMI: 25.9 Code : 00730-5 Heart Rate 1 : 68 bpm Height: 5'1" SpO2: 96% Weight: 137 lbs 08/08/2017 Blood Pressure 1: 118/72 Code : 8480-6 BMI: 26.6 Code : 55632-5 Heart Rate 1 : 68 bpm Height: 5'1" SpO2: 95% Weight: 141 lbs 05/29/2017 Blood Pressure 1: 142/78 Code : 8480-6 BMI: 26.3 Code : 68052-6 Heart Rate 1 : 65 bpm Height: 5'1" SpO2: 95% Weight: 139 lbs 04/16/2017 Blood Pressure 1: 136/62 Code : 8480-6 BMI: 27.4 Code : 44498-3 Heart Rate 1 : 38 bpm Height: 5'1" SpO2: 98% Weight: 145 lbs 02/10/2017 Blood Pressure 1: 124/70 Code : 8480-6 BMI: 27.4 Code : 63906-2 Heart Rate 1 : 70 bpm Height: 5'1" SpO2: 96% Weight: 145 lbs 01/21/2017 Blood Pressure 1: 120/70 Code : 8480-6 BMI: 27.2 Code : 07744-0 Heart Rate 1 : 65 bpm Height: 5'1" SpO2: 95% Weight: 144 lbs 12/18/2016 Blood Pressure 1: 122/74 Code : 8480-6 BMI: 27.4 Code : 40460-0 Heart Rate 1 : 66 bpm Height: 5'1" SpO2: 97% Weight: 145 lbs 08/26/2016 Blood Pressure 1: 110/64 Code : 8480-6 BMI: 28.0 Code : 74328-7 Heart Rate 1 : 67 bpm Height: 5'1" SpO2: 97% Weight: 148 lbs 02/27/2016 Blood Pressure 1: 126/74 Code : 8480-6 Heart Rate 1: 67 bpm Height: 5'1" SpO2: 97% 02/19/2016 Blood Pressure 1: 130/80 Code : 8480-6 BMI: 28.2 Code : 90908-8 Heart Rate 1 : 74 bpm Height: 5'1" SpO2: 96% Weight: 149 lbs 02/08/2016 Blood Pressure 1: 122/78 Code : 8480-6 BMI: 28.2 Code : 92321-2 Heart Rate 1 : 63 bpm Height: 5'1" SpO2: 96% Weight: 149 lbs 11/16/2015 Blood Pressure 1: 128/70 Code : 8480-6 BMI: 27.8 Code : 80031-6 Heart Rate 1 : 64 bpm Height: 5'1" SpO2: 97% Weight: 147 lbs 07/18/2015 Blood Pressure 1: 110/60 Code : 8480-6 BMI: 28.5 Code : 00345-7 Heart Rate 1 : 61 bpm Height: 5'1" SpO2: 97% Weight: 151 lbs 06/27/2015 Blood Pressure 1: 122/60 Code : 8480-6 BMI: 28.9 Code : 51797-7 Heart Rate 1 : 63 bpm Height: 5'1" SpO2: 95% Weight: 153 lbs 06/19/2015 Blood Pressure 1: 120/78 Code : 8480-6 Heart Rate 1: 68 bpm SpO2: 96% Weight: 154 lbs 04/03/2015 Blood Pressure 1: 128/68 Code : 8480-6 BMI: 29.1 Code : 83248-9 Heart Rate 1 : 70 bpm Height: 5'1" SpO2: 97% Weight: 154 lbs 02/27/2015 Blood Pressure 1: 122/84 Code : 8480-6 BMI: 29.5 Code : 07227-8 Heart Rate 1 : 67 bpm Height: 5'1" SpO2: 95% Weight: 156 lbs 01/26/2015 Blood Pressure 1: 132/70 Code : 8480-6 BMI: 30.2 Code : 60525-3 Heart Rate 1 : 76 bpm Height: 5'1" Weight: 160 lbs 01/16/2015 Blood Pressure 1: 140/70 Code : 8480-6 BMI: 30.0 Code : 14785-3 Heart Rate 1 : 78 bpm Height: 5'1" Respiratory Rate: 20 bpm Weight: 159 lbs 12/05/2014 Blood Pressure 1: 138/78 Code : 8480-6 BMI: 30.8 Code : 98590-8 Heart Rate 1 : 76 bpm Height: [...] not bring in readings 2018 -Checked at [facility] Alleviating Factors medication 10/21/2018 None Pertinent Findings [...] bring in readings 2018 -Checked at [facility] Pertinent Findings edema 09/23/2018 None Quality chronic [...] ill contacts 07/23/2018 she is in a snf Triggers recumbent position 07/23/2018 None Pertinent Findings [...] ill contacts 07/07/2018 she is in a snf Triggers recumbent position 07/07/2018 None Hospital Follow [...] : S91.311A] [facility] CPT-4: 52135 10/[id number]) [id number] EST. 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 PATIENT, LEVEL IV Diagnosis: Essential (primary) hypertension[ICD10: I10] Diagnosis: Localized edema[ICD10: R60.0] Diagnosis: Atrophy of thyroid (acquired)[ICD10: E03.4] [facility] CPT-4: 81457 09/23/2018 [id number] EST. PATIENT, LEVEL III Diagnosis: Essential (primary) hypertension[ICD10: I10] Diagnosis: Localized edema[ICD10: R60.0] Светлана Barron MD, [facility] CPT-4 : 63186 09/14/2018 ([id number]) [id number] EST. PATIENT, LEVEL IV Diagnosis: Essential (primary) hypertension[ICD10: I10] Diagnosis: Lymphedema, not elsewhere classified[ICD10: I89.0] Diagnosis: Other ascites[ICD10: R18.8] Alexandria Barron MD, [facility] CPT- 4: 59374 07/23/2018 ([id number]) [id number] EST. PATIENT, LEVEL IV Diagnosis: Essential (primary) hypertension[ICD10: I10] Diagnosis: Atrophy of thyroid (acquired)[ICD10: E03.4] Diagnosis: Lymphedema, not elsewhere classified[ICD10: I89.0] Alexandria Barron MD [facility] CPT-4: 30543 07/07/2018 ([id number]) [id number] EST. PATIENT, LEVEL IV Diagnosis: Essential (primary) hypertension[ICD10: I10] Diagnosis: Localized edema[ICD10: R60.0] Alexandria Barron MD, [facility] CPT- 4: 99459 06/22/2018 ([id number]) 73269 EST. PATIENT, LEVEL IV Diagnosis: Atrophy of thyroid (acquired)[ICD10: E03.4] Diagnosis: Essential (primary) hypertension[ICD10: I10] Diagnosis: Other chronic pain[ICD10: G89.29] Diagnosis: Pain in left knee[ICD10: M25.562] Diagnosis: Low back pain[ICD10: M54.5] Alexandria Barron MD, [facility] CPT- 4: 82857 05/25/2018 ([id number]) 20742 EST. 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 PATIENT, LEVEL IV Diagnosis: Essential (primary) hypertension[ICD10: I10] Diagnosis: Low back pain[ICD10: M54.5] Diagnosis: Localized edema[ICD10: R60.0] Diagnosis: Other chronic pain[ICD10: G89.29] Diagnosis: Obstructive sleep apnea (adult) (pediatric)[ICD10: G47.33] Alexandria Barron MD , [facility] CPT-4: 40213 04/01/2018 ([id number]) 61582 EST. PATIENT, LEVEL IV Diagnosis: Essential (primary) hypertension[ICD10: I10] Diagnosis: Other chronic pain[ICD10: G89.29] Diagnosis: Unsteadiness on feet[ICD10: R26.81] Alexandria Barron MD, [facility] CPT-4: 87304 03/18/2018 ([id number]) 29575 EST. PATIENT, LEVEL IV Diagnosis: Low back pain[ICD10: M54.5] Diagnosis: Localized edema[ICD10: R60.0] Diagnosis: Essential (primary) hypertension[ICD10: I10] Diagnosis: Other chronic pain[ICD10: G89.29] Diagnosis: Pressure ulcer of left buttock, stage 1[ICD10: L89.321] Diagnosis: Obstructive sleep apnea (adult) (pediatric)[ICD10: G47.33] Alexandria Barron MD , [facility] CPT-4: 40327 03/09/2018 ([id number]) 21724 EST. 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 PATIENT, LEVEL III Diagnosis: Cough[ICD10: R05] Diagnosis: Acute bronchitis, unspecified[ICD10: J20.9] Sandra Barron MD, [facility] CPT-4: 92373 12/26/2017 ([id number]) 60342 EST. PATIENT, LEVEL IV Diagnosis: Essential (primary) hypertension[ICD10: I10] Diagnosis: Other specified noninfective disorders of lymphatic vessels and lymph nodes[ICD10: I89.8] Diagnosis: Atrophy of thyroid (acquired)[ICD10: E03.4] Alexandria Barron MD, [facility] CPT-4: 63316 12/04/2017 54863 EST. PATIENT, LEVEL III Diagnosis: Candidiasis of skin and nail[ICD10: B37.2] Светлана Barron MD, [facility] CPT-4: 35685 11/13/2017 ([id number]) 81186 EST. PATIENT, LEVEL III Diagnosis: Lymphedema, not elsewhere classified[ICD10: I89.0] Diagnosis: Low back pain[ICD10: M54.5] Diagnosis: Localized edema[ICD10: R60.0] Alexandria Barron MD, [facility] CPT- 4: 32049 11/06/2017 ([id number]) Miscellaneous no charge Diagnosis: Localized edema[ICD10: R60.0] Diagnosis: Cellulitis of right lower limb[ICD10: L03.115] Diagnosis: Cellulitis of left lower limb[ICD10: L03.116] Светлана Barron MD, [facility] CPT-4: 73927 11/03/2017 [id number] EST. PATIENT, LEVEL III Diagnosis: Cellulitis of left lower limb[ICD10: L03.116] Diagnosis: Localized edema[ICD10: R60.0] Светлана Barron MD, [facility] CPT-4 : 00652 10/29/2017 ([id number]) 27301 EST. PATIENT, LEVEL IV Diagnosis: Essential (primary) hypertension[ICD10: I10] Diagnosis: Atrophy of thyroid (acquired)[ICD10: E03.4] Diagnosis: Pain in left knee[ICD10: M25.562] Diagnosis: Stiffness of left hand, not elsewhere classified[ICD10: M25.642] Diagnosis: Stiffness of right hand, not elsewhere classified[ICD10: M25.641] Alexandria Barron MD, [facility] CPT-4: 49586 09/04/2017 ([id number]) 41183 EST. PATIENT, LEVEL III Diagnosis: Other viral warts[ICD10: B07.8] Diagnosis: Other skin changes[ICD10: R23.8] Alexandria Barron MD, [facility] CPT-4: 03565 08/08/2017 ([id number]) 72705 EST. PATIENT, LEVEL IV Diagnosis: Essential (primary) hypertension[ICD10: I10] Diagnosis: Atrophy of thyroid (acquired)[ICD10: E03.4] Diagnosis: Low back pain[ICD10: M54.5] Alexandria Barron MD, [facility] CPT- 4: 35769 05/29/2017 ([id number]) 48446 EST. PATIENT, LEVEL IV Diagnosis: Essential (primary) hypertension[ICD10: I10] Diagnosis: Atrophy of thyroid (acquired)[ICD10: E03.4] Diagnosis: Encounter for immunization[ICD10: Z23] Diagnosis: Sick sinus syndrome[ICD10: I49.5] Alexandria Barron MD, [facility] CPT-4: 76642 04/16/2017 ([id number]) Miscellaneous no charge Diagnosis: Cellulitis of left lower limb[ICD10: L03.116] Светлана Barron MD, [facility] CPT-4: 00352 02/24/2017 [id number] EST. PATIENT, LEVEL III Diagnosis: Cellulitis of left lower limb[ICD10: L03.116] Diagnosis: Cellulitis of right lower limb[ICD10: L03.115] Светлана Barron MD, [facility] CPT-4: 67950 02/10/2017 ([id number]) 20227 EST. PATIENT, LEVEL IV Diagnosis: Essential (primary) hypertension[ICD10: I10] Diagnosis: Other abnormal glucose[ICD10: R73.09] Diagnosis: Localized edema[ICD10: R60.0] Alexandria Barron MD, [facility] CPT- 4: 96187 01/21/2017 56982 EST. PATIENT, LEVEL IV Diagnosis: Essential (primary) hypertension[ICD10: I10] Diagnosis: Pain in left knee[ICD10: M25.562] Diagnosis: Atrophy of thyroid (acquired)[ICD10: E03.4] Alexandria Barron MD, [facility] CPT-4: 18312 12/18/2016 ([id number]) 92240 EST. PATIENT, LEVEL IV Diagnosis: Essential (primary) hypertension[ICD10: I10] Diagnosis: Pain in left knee[ICD10: M25.562] Diagnosis: Other instability, left knee[ICD10: M25.362] Diagnosis: Other chronic pain[ICD10: G89.29] Alexandria Barron MD, [facility] CPT-4: 82312 08/26/2016 ([id number]) 37088 EST. PATIENT, LEVEL III Diagnosis: Localized edema[ICD10: R60.0] Sandra Barron MD, [facility] CPT-4: 55254 02/27/2016 ([id number]) Miscellaneous no charge Diagnosis: Lymphedema, not elsewhere classified[ICD10: I89.0] Sandra Barron MD, [facility] CPT-4: 43465 02/20/2016 ([id number]) 76160 EST. PATIENT, LEVEL III Diagnosis: Contusion of left lower leg, subsequent encounter[ICD10: S80.12XD] Diagnosis: Abrasion of scalp, subsequent encounter[ICD10: S00.01XD] Diagnosis: Laceration without foreign body of left upper arm, subsequent encounter[ICD10: S41.112D] Diagnosis: Localized edema[ICD10: R60.0] Sandra Barron MD, [facility] CPT-4: 17661 02/19/2016 ([id number]) Miscellaneous no charge Diagnosis: Laceration without foreign body of left upper arm, subsequent encounter[ICD10: S41.112D] Diagnosis: Abrasion of scalp, subsequent encounter[ICD10: S00.01XD] Sandra Barron MD , [facility] CPT-4: 77526 02/12/2016 ([id number]) 78774 EST. PATIENT, LEVEL IV Diagnosis: Contusion of left lower leg, initial encounter[ICD10: S80.12XA] Diagnosis: Abrasion of scalp, initial encounter[ICD10: S00.01XA] Diagnosis: Laceration without foreign body of left upper arm, initial encounter[ ICD10: S41.112A] Diagnosis: Localized edema[ICD10: R60.0] Diagnosis: Hypothyroidism, unspecified[ICD10: E03.9] Diagnosis: Essential (primary) hypertension[ICD10: I10] Alexandria Barron MD, [facility] CPT-4: 33340 02/08/2016 ([id number]) 13756 EST. PATIENT, LEVEL IV Diagnosis: Cough[ICD10: R05] Diagnosis: Low back pain[ICD10: M54.5] Diagnosis: Allergic rhinitis due to pollen[ICD10: J30.1] Diagnosis: Acute upper respiratory infection, unspecified[ICD10: J06.9] Diagnosis: Acute bronchitis, unspecified[ICD10: J20.9] Sandra Barron MD, [facility] CPT-4: 94582 11/16/2015 ([id number]) 49867 EST. PATIENT, LEVEL IV Diagnosis: Hypothyroidism, unspecified[ICD10: E03.9] Diagnosis: Lymphedema, not elsewhere classified[ICD10: I89.0] Alexandria Barron MD, [facility] CPT-4: 85896 07/18/2015 64101 EST. PATIENT, LEVEL IV Diagnosis: Contusion of left lower leg, subsequent encounter[ICD10: S80.12XD] Diagnosis: Cellulitis of left lower limb[ICD10: L03.116] Светлана Barron MD, [facility] CPT-4: 01452 06/27/2015 76509 EST. PATIENT, LEVEL III Diagnosis: Contusion of left lower leg, initial encounter[ICD10: S80.12XA] Diagnosis: Cellulitis of left lower limb[ICD10: L03.116] Светлана Barron MD, [facility] CPT-4: 66856 06/19/2015 ([id number]) 27247 EST. 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 PATIENT, LEVEL III Diagnosis: Rosacea, acne[ICD9: 695.3] Diagnosis: Lymphedema[ICD9: 457.1] Sandra Barron MD, [facility] CPT-4: 58352 02/27/2015 ([id number]) 66393 EST. PATIENT, LEVEL III Diagnosis: Right leg swelling[ICD9: 729.81] Alexandria Barron MD, [facility] CPT-4: 89018 01/26/2015 ([id number]) 30677 EST. PATIENT, LEVEL III Diagnosis: CELLULITIS OF LEG[ICD9: 682.6] Mary Ann Barron MD, [facility] CPT-4 : 61414 01/16/2015 ([id number]) OFFICE VISIT, NEW - LEVEL 4 Diagnosis: Back pain[ICD9: 724.5] Diagnosis: Lymphedema[ICD9: 457.1] Diagnosis: Sacroiliitis[ICD9: 720.2] Diagnosis: Chronic pain[ICD9: 338.29] Diagnosis: HYPOTHYROIDISM[ICD9: 244.9] Diagnosis: Dysphagia[ICD9: 787.20] Alexandria Barron MD, [facility] CPT-4: 02837 12/05/2014 Plan of Care Planned Activity Notes Codes Status Date Visit Plan: Skin tear to right 5th toe - Dr. Barron in to evaluate patient - Wound Instructions - Pt was instructed to keep the wound clean, wash with antibacterial soap, use triple antibiotic ointment, call if redness, pustular drainage, or any other acute concerns. 11/04/2018 Appointment: Светлана Garcia WPtel: [address] [place], [place] [id number] (30 min) [facility] 11/04/2018 Patient Education: Patient Medication Summary Completed [...] 10 days. 10/21/2018 Appointment: Alexandria Barron WPtel: [facility] (15 min) Moderate 10/21/2018 Patient Education: Patient [...] compression wraps. 09/23/2018 Appointment: Alexandria Barron WPtel: [phone] [facility] (15 min) Moderate 09/23/2018 Patient Education: Patient [...] acute concerns. 09/14/2018 Appointment: [facility]лана [phone] ([facility] Complex 09/14/2018 Patient Education: Patient [...] compression 07/23/2018 Appointment: Alexandria Barron WPtel: [phone] [facility] (15 min) Moderate 07/23/2018 Patient Education: Patient [...] seated. 07/07/2018 [facility]ment[phone] [place] ([facility] min) Moderate 07/07/2018 Patient Education: Patient [...] peripheral edema. 06/22/2018 Appointment: [phone] [place] (15 min) Moderate 06/22/2018 Patient Education: Patient Medication Summary Completed 06/22/2018 Appointment: [phone] ([facility] min) Moderate 05/27/2018 Visit Plan: Hypertension [...] of over-medication. 05/25/2018 Appointment: [phone] ([facility] min) Moderate 05/25/2018 Patient Education: Patient Medication Summary Completed 05/25/2018 Patient Education: Back Pain Completed 05/25/2018 Appointment: Светлана Garcia [phone] (30 min) Complex 05/15/2018 Visit Plan: Hypertension [...] in clinic. 04/23/2018 Appointment: Alexandria Barron WPtel: [facility] (15 min) Moderate 04/23/2018 Patient Education: Patient [...] pt request. 04/01/2018 Appointment: [phone] ([facility] min) Moderate 04/01/2018 Patient Education: [...] goes well. 03/18/2018 Appointment: [phone] ([facility] min) Moderate 03/18/2018 Patient Education: [...] on buttock. 03/09/2018 Appointment: [phone] ([facility] min) Moderate 03/09/2018 Patient Education: [...] her report. 02/12/2018 Appointment: Alexandria Barron WPtel: [facility] (15 min) Moderate 02/12/2018 Patient Education: Patient Medication Summary Completed 02/12/2018 Visit Plan: Bronchitis- Pt advised to increase fluids, vitamin C. Discussed natural and expected course of this diagnosis and need to alert me if symptoms do not follow expected course, or if any worse. RX sent to patient's pharmacy. 12/26/2017 Appointment: Sandra Mcdonald WPtel: [phone] [phone] [place] (15 min) Moderate 12/26/2017 Patient Education: [...] when seated. 12/04/2017 Appointment: Alexandria Barron WPtel: [facility] [place] (30 min) Complex 12/04/2017 Patient Education: [...] discharge. 11/13/2017 Appointment: Светлана Garcia [facility]el[phone] (30 min) Complex 11/13/2017 Patient Education: Patient [...] wound care. 11/06/2017 Appointment: [phone] ([facility] min) Complex 11/06/2017 Patient Education: [...] peripheral edema. 10/29/2017 Appointment: Светлана Garcia WPtel: [facility] (15 min) Moderate 10/29/2017 Patient Education: Patient [...] pennsaid sample 09/04/2017 Appointment: Alexandria [phone] (15 min) Moderate 09/04/2017 Patient Education: Patient Medication Summary Completed 09/04/2017 Appointment: Светлана Garcia WPtel: [phone] [facility] (15 min) Moderate 08/18/2017 Visit Plan: Skin lesion on face - lesion removed with scalpel and dressed with medihoney, pt to RTC in 10 days for treatment of the lesion if not fully resolved. 08/08/2017 Appointment: Alexandria Barron WPtel: [phone] [facility] (30 min) Complex 08/08/2017 Patient Education: Patient [...] over- medication. 05/29/2017 Appointment: Alexandria Bar[phone] [place] (15 min) Moderate 05/29/2017 Patient Education: Patient Medication Summary Completed 05/29/2017 Appointment: Alexandria Barron WPtel: 101 [facility] [place] (15 min) Moderate 04/30/2017 [facility] Patient informed. Referral info faxed. Completed 04/28/2017 [...] of control. 04/16/2017 Appointment: Alexandria Barron WPtel: 101 [facility] (15 min) Moderate 04/16/2017 Patient Education: Patient Medication Summary Completed 04/16/2017 Care Plan: Referral Order SNOMED-CT : [id number] Pending 04/16/2017 Visit Plan: Wound healed - no further treatment at this time. 02/24/2017 Appointment: Nurse Visit 02/24/2017 Patient Education: Patient Medication Summary Completed 02/24/2017 Appointment: Nurse Visit 02/18/2017 Appointment: Светлана Garcia WPtel: [facility] (30 min) Complex 02/14/2017 Visit Plan: Cellulitis - The patient was instructed in appropriate wound care. The patient was instructed to use the antibiotic as per RX. The patient is to call for any change in symptoms, increase in size of the lesion, increase in pain, worsening redness, warmth, discharge. 02/10/2017 Appointment: Светлана Garcia WPtel: [phone] [facility] (30 min) Complex 02/10/2017 Patient Education: Patient [...] intake. 01/21/2017 Appointment: Alexandria Barron WPtel: [phone] [facility] (15 min) Moderate 01/21/2017 Patient Education: Patient [...] improving. 12/18/2016 Appointment: Alexandria Bar[phone] [place] (15 min) Moderate 12/18/2016 Patient Education: Patient [...] specialist 08/26/2016 Appointment: Alexandria Bar[phone] [place] (15 min) Moderate 08/26/2016 Patient Education: Patient Medication Summary Completed 08/26/2016 Care Plan: Referral Order SNOMED-CT : [id number] Pending 08/26/2016 Appointment: Sandra Mcdonald WPtel: [phone] (30 min) Complex 03/11/2016 Visit Plan: Edema - improved-pt has been advised to elevate legs to prevent dependent edema, compression has been recommended to help to naturally decrease peripheral edema. Diuretic use has been discussed and pt has been instructed in appropriate use of such medication as necessary to further attempt to reduce peripheral edema. 02/27/2016 Appointment: Sandra Mcdonald [facility]Ptel: [phone] (30 min) Complex 02/27/2016 Patient Education: Patient Medication Summary Completed 02/27/2016 Appointment: Nurse Visit 02/20/2016 Patient Education: Patient Medication Summary Completed 02/20/2016 Visit Plan: Abrasion of scalp-healing well-continue wound care as directed Laceration left arm-healing well-continue wound care-may leave open to air Contusion of left sym-tmgtqmihp-gegztguw to monitor Edema-elevate legs-follow up tomorrow for quick check of swelling 02/19/2016 Appointment: Sandra Mcdonald WPtel: [phone] (15 min) Moderate 02/19/2016 Patient Education: Patient [...] edema. 02/08/2016 Appointment: Alexandria Bar[facility]el[phone] (15 min) Moderate 02/08/2016 Patient Education: [...] of swelling. 07/18/2015 Appointment: Alexandria Bar[facility]Ptel[phone] (15 min) Moderate 07/18/2015 Patient Education: Patient [...] not improving. 04/03/2015 Appointment: Alexandria Barron WPtel: [address] [place] [address] (15 min) Moderate 04/03/2015 Patient Education: Patient Medication Summary Completed 04/03/2015 Visit Plan: Rosacea-continue finacea as directed-add metronidazole cream twice daily-call if symptoms do not improve or if any worse. Sfybybbfnq-ftxtflq-jtsnjnco with wraps-no change in treatment 02/27/2015 Appointment: [...] EGD. 12/05/2014 Appointment: Alexandria Barron WPtel: [phone] [facility] [place] (S) New Patient 12/05/2014 Patient Education: Patient Medication Summary Completed 12/05/2014 Patient Education: Hypertension Completed 12/05/2014 Referral: Jose A Rios Referral Appointment Requested Referral: Alberta Wilks [address] [facility] Referral Appointment Requested Referral: Amarjit Veronica WPtel: [phone] [facility] Referral Appointment Requested Referral: Jayro Wetzel WPtel: [...] drainage, or any other acute concerns. . Abrasion of scalp-healing well-continue wound care as directed Laceration left arm-healing well-continue wound care-may leave open to air Contusion of left jek-ykixskrlu-sebpkeoc to monitor Edema-elevate legs-follow up tomorrow for [...] Follow up appointment in 10 days. . Edema - improved-pt has been advised [...] pressure readings at home. Sleep apnea - [place] to go to her house to pick-up [...] do not improve or if any worse. Lvksnizwhx-qldznyd-vcjviapo with wraps-no change in treatment . Hypertension [...]
--- OUTSIDE RECORDS SUMMARY | 2018-11-23 15:27 | XMS REPORT | CCD ---
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 Name Role Phone PP Unavailable CCM Unavailable Summary Purpose Interface Exchange Insurance Providers Payer name Policy type / Coverage type Covered democrat ID Effective Begin Date Effective End Date WPS Medicare Part B Medicare Part B [id number] Unknown Unknown [facility] Medicare Part B [id number] Unknown Unknown Family history Brother Diagnosis Age At Onset Diabetes Unknown Skin cancer Unknown Father Diagnosis Age At Onset Heart disease Unknown Mother Diagnosis Age At Onset advanced age Unknown Hypothyroid Unknown Social History Social History Element Codes Description Effective Dates Living arrangements Unknown Residential VCV 09/23/2018 Marital status Unknown Single 12/05/2014 Number of children Unknown 0 12/05/2014 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[address]: 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 Quit 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 quit 20-25 [...] Fill Instructions oxycodone 5 mg tablet RxNorm: 1292101 1 Tablet(s) PO BID and 1 at noon if needed for uncontrolled pain 10/21/20182018 Active gentamicin 0.3 % eye drops RxNorm: 478835 2 Drop(s) ophthalmic (eye) QID 10/21/2018 10/30/2018 Active oxycodone 5 mg tablet RxNorm: 5251952 1.5 Tablet(s) PO BID 10/0510/20/2018 Inactive oxycodone 5 mg tablet RxNorm: 7675019 2 Tablet(s) PO BID 201810/04/2018 Inactive oxycodone 5 mg tablet RxNorm: 2382661 2 Tablet(s) PO BID 201809/27/2018 Inactive oxycodone 5 mg tablet RxNorm: 1428269 2 Tablet(s) PO BID 201708/29/2018 Inactive Lasix 40 mg tablet RxNorm: 841847 1 Tablet(s) PO daily as needed edema if more than 3 pounds weight gain in 48 hours 07/23/2018 11/19/2018 Active oxycodone 5 mg tablet RxNorm: 9903680 2 Tablet(s) PO BID 201707/30/2018 Inactive nadolol 20 mg tablet RxNorm: 114508 1/2 Tablet(s) PO daily No Stop Date Active oxycodone 5 mg tablet RxNorm: 6702035 2 Tablet(s) PO BID 201707/15/2018 Inactive nadolol 20 mg tablet RxNorm: 230313 1 Tablet(s) TAKE 1 TABLET BY MOUTH EVERY DAY 05/25/2018 06/21/2018 Inactive Generic For:*CORGARD 20 MG TABLET 05/21/2018 10:10: 43 AM spironolactone 50 mg tablet RxNorm: 142236 TAKE 1 TABLET BY MOUTH EVERY DAY 05/21/2018 06/03/2018 Inactive Generic For:ALDACTONE 50MG 05/21/2018 10:10:31 AM pramipexole 0.25 mg tablet RxNorm: 887962 TAKE 1 TABLET BY MOUTH TWICE DAILY 05/21/2018 06/03/2018 Inactive Generic For:MIRAPEX 0.25MG TAB 05/21/2018 10:10:48 AM levothyroxine 88 mcg tablet RxNorm: 317801 TAKE 1 TABLET BY MOUTH EVERY DAY WITH A 100MCG TABLET 05/21/2018 06/03/2018 Inactive Generic For:*SYNTHROID 0.088MG TAB 05/21/2018 10:10:11 AM levothyroxine 100 mcg tablet RxNorm: 608168 TAKE 1 TABLET BY MOUTH EVERY DAY , TAKE WITH AN 88 MCG TABLET 05/21/2018 Inactive Generic For:*SYNTHROID 100 MCG TABLET 05/21/2018 10:10:04 AM Vitamin D3 2,000 unit capsule RxNorm: 022842 1 Capsule(s) PO daily 05/21/2018 No Stop Date Active nadolol 20 mg tablet RxNorm: 483886 TAKE 1/2 TABLET BY MOUTH EVERY DAY 05/21/2018 05/24/2018 Inactive Generic For:*CORGARD 20 MG TABLET 05/21/2018 10:10:43 AM Ocuvite tablet RxNorm : 1 Tablet(s) PO BID 05/21/2018 09/22/2018 Inactive oxycodone 5 mg tablet RxNorm: 6357223 1 Tablet(s) PO QID as needed 05/15/2018 06/13/2018 Inactive pramipexole 0.25 mg tablet RxNorm: 680327 1 Tablet(s) PO BID 05/20/2018 Inactive Requip 0.25 mg tablet RxNorm: 124758 1 Tablet(s) PO BID 201705/03/2018 Inactive potassium chloride ER 10 mEq tablet,extended release RxNorm: 818725 1 Tablet(s) PO daily as needed when taking lasix 04/23/2018 08/20/2018 Inactive Lasix 40 mg tablet RxNorm: 546287 1 Tablet(s) PO daily as needed edema if more than 3 pounds weight loss in 48 hours 04/23/2018 07/22/2018 Inactive potassium chloride ER 10 mEq tablet,extended release RxNorm: 994356 1 Tablet(s) PO daily as needed when taking lasix 04/01/2018 04/22/2018 Inactive Lasix 40 mg tablet RxNorm: 092699 1 Tablet(s) PO daily as needed edema 04/01/2018 04/22/2018 Inactive oxycodone 5 mg tablet RxNorm: 0940819 1 Tablet(s) PO QID as needed 03/18/2018 04/16/2018 Inactive levothyroxine 88 mcg tablet RxNorm: 026974 1 Tablet(s) PO daily . Take with 100 mcg tablet. 02/19/2018 05/20/2018 Inactive spironolactone 50 mg tablet RxNorm: 217490 Tablet(s) TAKE 1 TABLET BY MOUTH DAILY 02/19/2018 05/20/2018 Inactive levothyroxine 100 mcg tablet RxNorm: 142418 1 Tablet(s) PO daily . Take with 88 mcg tablet 02/19/2018 02/18/2018 Inactive levothyroxine 88 mcg tablet RxNorm: 673696 1 Tablet(s) PO daily . Take with 100 mcg tablet. 02/19/2018 02/18/2018 Inactive levothyroxine 100 mcg tablet RxNorm: 902973 1 Tablet(s) PO daily . Take with 88 mcg tablet 02/19/2018 05/20/2018 Inactive spironolactone 25 mg tablet RxNorm: 867075 1 Tablet(s) PO daily 02/12/2018 02/18/2018 Inactive pt will let you know when she is ready for the refill oxycodone 10 mg tablet RxNorm: 3577585 1 Tablet(s) PO TID as needed 02/12/2018 03/13/2018 Inactive oxycodone 10 mg tablet RxNorm: 3510449 1 Tablet(s) PO Q6 as needed 01/22/2018 02/11/2018 Inactive spironolactone 50 mg tablet RxNorm: 847880 TAKE 1 TABLET BY MOUTH DAILY 01/05/2018 02/11/2018 Inactive Generic For:ALDACTONE 50MG 01/05/2018 8:27:46 AM Kenalog 40 mg/mL suspension for injection RxNorm: 0409570 1 Milliliter(s) Inj 12/26/2017 12/26/2017 Inactive Zithromax Z-Fransisco 250 mg tablet RxNorm: 931753 1 Tablet(s) PO UD 12/26/2017 12/30/2017 Inactive oxycodone 10 mg tablet RxNorm: 6994674 1 Tablet(s) PO Q6 as needed 11/25/2017 12/24/2017 Inactive nystatin 100,000 unit/gram topical powder RxNorm: 290550 1 Application TOP BID 11/13/2017 09/22/2018 Inactive nystatin 100,000 unit/gram topical cream RxNorm: 636239 Gram(s) TOP QID 11/12/2017 11/18/2017 Inactive nystatin 100,000 unit/gram topical cream RxNorm: 830168 Gram(s) TOP QID 11/12/2017 11/11/2017 Inactive Lasix 20 mg tablet RxNorm: 861157 1 Tablet(s) PO daily as needed edema 11/03/2017 11/07/2017 Inactive potassium chloride ER 10 mEq tablet,extended release RxNorm: 304236 1 Tablet(s) PO daily while on the lasix 11/03/201701/2018 Inactive Keflex 500 mg capsule RxNorm: 321615 1 Capsule(s) PO TID 201711/07/2017 Inactive potassium chloride ER 10 mEq tablet,extended release RxNorm: 855445 1 Tablet(s) PO daily while on the lasix 10/29/2017 Inactive Lasix 20 mg tablet RxNorm: 168657 1 Tablet(s) PO daily as needed edema 10/29/2017 10/31/2017 Inactive oxycodone 10 mg tablet RxNorm: 7001353 1 Tablet(s) PO Q6 as needed 09/29/2017 10/28/2017 Inactive levothyroxine 200 mcg tablet RxNorm: 457581 TAKE 1 TABLET BY MOUTH DAILY 09/01/2017 02/18/2018 Inactive Generic For:*SYNTHROID 0.2MG TAB 09/01/2017 8:36:32 AM Bactrim DS 800 mg-160 mg tablet RxNorm: 376025 1 Tablet(s) PO BID 08/07/2017 08/16/2017 Inactive Bactrim DS 800 mg-160 mg tablet RxNorm: 568733 1 Tablet(s) PO BID 08/07/2017 08/06/2017 Inactive oxycodone 10 mg tablet RxNorm: 4351045 1 Tablet(s) PO Q6 as needed 07/31/2017 08/29/2017 Inactive spironolactone 50 mg tablet RxNorm: 754020 1 Tablet(s) PO daily 06/30/2017 12/26/2017 Inactive Not due for a refill until next month nadolol 20 mg tablet RxNorm: 662602 1/2 Tablet(s) PO daily 11/28/2017 Inactive nadolol 20 mg tablet RxNorm: 288546 1 Tablet(s) PO daily 201609/22/2018 Inactive nadolol 20 mg tablet RxNorm: 111989 1/2 Tablet(s) PO daily 05/21/2017 Inactive oxycodone 10 mg tablet RxNorm: 2360725 1 Tablet(s) PO Q6 as needed 04/01/2017 04/30/2017 Inactive levothyroxine 200 mcg tablet RxNorm: 386739 TAKE 1 TABLET BY MOUTH DAILY 03/10/2017 08/31/2017 Inactive Generic For:*SYNTHROID 0.2MG TAB 03/10/2017 8:49:05 AM potassium chloride ER 10 mEq tablet,extended release RxNorm: 773648 1 Tablet(s) PO daily while on the lasix 02/18/2017 Inactive Lasix 20 mg tablet RxNorm: 197559 1 Tablet(s) PO daily as needed edema 02/18/2017 02/20/2017 Inactive Keflex 500 mg capsule RxNorm: 846052 1 Capsule(s) PO TID 201602/16/2017 Inactive Lasix 20 mg tablet RxNorm: 503216 1 Tablet(s) PO daily 201602/15/2017 Inactive potassium chloride ER 10 mEq tablet,extended release RxNorm: 498724 1 Tablet(s) PO daily while on the lasix 02/14/2017 Inactive Lasix 20 mg tablet RxNorm: 292476 1 Tablet(s) PO daily 201602/13/2017 Inactive potassium chloride ER 10 mEq tablet,extended release RxNorm: 309251 1 Tablet(s) PO daily while on the lasix 02/14/2017 Inactive oxycodone 10 mg tablet RxNorm: 4114506 1 Tablet(s) PO Q6 as needed 02/05/2017 03/06/2017 Inactive minocycline 50 mg tablet RxNorm: 945929 1 Tablet(s) PO Q72H 12/03/2017 Inactive spironolactone 50 mg tablet RxNorm: 680919 1 Tablet(s) PO daily 12/18/2016 06/15/2017 Inactive Not due for a refill until next month oxycodone 10 mg tablet RxNorm: 2812205 1 Tablet(s) PO Q6 as needed 12/05/2016 01/03/2017 Inactive nadolol 20 mg tablet RxNorm: 465177 1 Tablet(s) PO daily 201604/15/2017 Inactive oxycodone 10 mg tablet RxNorm: 1878590 1 Tablet(s) PO Q6 as needed 09/30/2016 10/29/2016 Inactive levothyroxine 200 mcg tablet RxNorm: 167151 TAKE 1 TABLET BY MOUTH DAILY 09/12/2016 03/09/2017 Inactive Generic For:*SYNTHROID 0.2MG TAB 09/12/2016 8:41:27 AM oxycodone 10 mg tablet RxNorm: 9883488 1 Tablet(s) PO Q6 as needed 08/06/2016 09/04/2016 Inactive oxycodone 10 mg tablet RxNorm: 8973000 1 Tablet(s) PO Q6 as needed 06/10/2016 07/09/2016 Inactive oxycodone 10 mg tablet RxNorm: 5926064 1 Tablet(s) PO Q6 as needed 04/05/2016 05/04/2016 Inactive levothyroxine 200 mcg tablet RxNorm: 709503 1 Tablet(s) PO daily 03/14/2016 09/09/2016 Inactive oxycodone 10 mg tablet RxNorm: 4339854 1 Tablet(s) PO Q6 as needed 02/08/2016 03/08/2016 Inactive Kenalog 40 mg/mL suspension for injection RxNorm: 4475038 Milliliter(s) Inj 11/16/2015 11/16/2015 Inactive Zithromax Z-Fransisco 250 mg tablet RxNorm: 773175 1 Tablet(s) PO UD 11/16/2015 11/20/2015 Inactive zpack, take probiotic while on abx oxycodone 10 mg tablet RxNorm: 4591617 1 Tablet(s) PO Q6 as needed 11/16/2015 02/07/2016 Inactive ceftriaxone 500 mg solution for injection RxNorm: 8758091 Inj 11/16/2015 11/16/2015 Inactive oxycodone 10 mg tablet RxNorm: 7909917 1 Tablet(s) PO Q6 as needed 10/11/2015 11/15/2015 Inactive levothyroxine 200 mcg tablet RxNorm: 169771 1 Tablet(s) PO daily 09/14/2015 03/11/2016 Inactive oxycodone 10 mg tablet RxNorm: 0468911 1 Tablet(s) PO Q6 as needed 08/10/2015 10/10/2015 Inactive Keflex 500 mg capsule RxNorm: 580458 1 Capsule(s) PO TID 201407/03/2015 Inactive Keflex 500 mg capsule RxNorm: 089284 1 Capsule(s) PO TID 201406/25/2015 Inactive oxycodone 10 mg tablet RxNorm: 6014900 1 Tablet(s) PO Q6 as needed 04/03/2015 08/09/2015 Inactive oxycodone 10 mg tablet RxNorm: 3143119 1 Tablet(s) PO Q6 as needed 02/14/2015 04/02/2015 Inactive Keflex 500 mg capsule RxNorm: 966174 1 Capsule(s) PO TID 201401/22/2015 Inactive Culturelle 10 billion cell capsule RxNorm: 942357 1 Capsule(s) PO daily 01/16/2015 02/14/2015 Inactive Dulcolax Stool Softener (docusate) 100 mg capsule RxNorm: 4539086 1 Capsule(s) PO daily 12/05/2014 02/11/2018 Inactive [SAVINGS FOR NON-COVERED DRUGS -- BIN:[id number], PCN: [id number], Group: [id number], ID# [id number], Questions: . THIS IS NOT INSURANCE.] Claritin 10 mg tablet RxNorm: 398817 1 Tablet(s) PO daily No Start Date Active Miralax 17 gram/dose oral powder RxNorm: 733497 17 Gram(s) PO QHS No Start Date Active multivitamin tablet RxNorm: 1 Tablet(s) PO daily No Start Date Active Colace 100 mg capsule RxNorm: 0820714 1 Capsule(s) PO BID No Start Date Active PreserVision AREDS oral RxNorm: 972320 oral No Start Date Active Restasis 0.05 % eye drops in a dropperette RxNorm: 177233 1 Drop(s) OPH BID No Start Date Active Vitamin D3 2,000 unit capsule RxNorm: 273147 1 Capsule(s) PO daily No Start Date 05/20/2018 Inactive minocycline 50 mg tablet RxNorm: 817431 1 Tablet(s) PO QHS No Start Date 01/20/2017 Inactive nadolol 20 mg tablet RxNorm: 296569 1 Tablet(s) PO daily No Start Date 11/05/2016 Inactive nadolol 20 mg tablet RxNorm: 645034 1 Tablet(s) PO daily No Start Date 11/05/2016 Inactive Ocuvite tablet RxNorm : 1 Tablet(s) PO BID No Start Date 05/20/2018 Inactive oxycodone 10 mg tablet RxNorm: 5752248 1 Tablet(s) PO Q6 as needed No Start Date 02/13/2015 Inactive Dulcolax Stool Softener (docusate) 100 mg capsule RxNorm: 1363132 1 Capsule(s) PO BID No Start Date 12/04/2014 Inactive Multivitamin 50 Plus tablet RxNorm: 1 Tablet(s) PO QAM No Start Date 02/11/2018 Inactive Finacea 15 % topical gel RxNorm: 0642749 TOP No Start Date 05/24/2018 Inactive Synthroid 200mcg Oral RxNorm: oral No Start Date 09/13/2015 Inactive spironolactone 50 mg tablet RxNorm: 827331 1 Tablet(s) PO daily No Start Date 12/17/2016 Inactive spironolactone 50 mg tablet RxNorm: 286232 1 Tablet(s) PO daily No Start Date 02/11/2018 Inactive Medication Administered Medication Codes Instructions Start Date Status Kenalog 40 mg/mL suspension for injection RxNorm: 6264318 1Milliliter 12/26/2017 No longer Active ceftriaxone 500 mg solution for injection RxNorm: 5874067 11/16/2015 No longer Active Kenalog 40 mg/mL suspension for injection RxNorm: 2753119 Milliliter 11/16/2015 No longer Active Immunizations Vaccine Codes Date Status Influenza CVX: 141 04/23/2018 completed Influenza CVX: 141 04/16/2017 completed Influenza CVX: 141 08/26/2016 completed Assessments Condition Codes Effective Dates 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 ICD-9: 571.6 [...] Visit Reason For Visit Effective Dates Notes hypertension 10/21/2018 hypertension 09/23/2018 cough 09/14/2018 cough [...] Item Item Code Result Date Free T4 Wny424 FREE T4 1.92 ng/dL 04/24/2018 Tsh Ord6 [...] 31.1 pg 04/24/2018 Cbc With Differential Ord2 [place]% 13.0 % 04/24/2018 Cbc With Differential Ord2 [...] 1.00 K/ul 04/24/2018 Cbc With Differential Ord2 [place] ABS# 0.4 K/ul 04/24/2018 Cbc With Differential Ord2 Eos ABS# 0.0 K/ul 04/24/2018 Cbc With Differential Ord2 Baso ABS# 0.0 K/ul 04/24/2018 Comp Metabolic Cma419 NA 138 mEq/L 04/24/2018 Comp Metabolic Adw708 K 3.9 mEq/L 04/24/2018 Comp Metabolic Kpd476 CL 97 mEq/L 04/24/2018 Comp Metabolic Nda773 CO2 32.0 mEq/L 04/24/2018 Comp Metabolic Whn230 ANION GAP 13 04/24/2018 Comp Metabolic Blh721 GLUCOSE 194 mg/dL 04/24/2018 Comp Metabolic Bej029 Creat 0.8 mg/dL 04/24/2018 Comp Metabolic Jmk259 eGFR 70 ml/min/1.73m2 04/24/2018 Comp Metabolic Ehe939 BUN 20 mg/dL 04/24/2018 Comp Metabolic Vmd713 B/C Ratio 24.1 Ratio 04/24/2018 Comp Metabolic Vyb671 CALCIUM 9.4 mg/dL 04/24/2018 Comp Metabolic Xmo791 ALK PHOS 110 U/L 04/24/2018 Comp Metabolic Cen952 AST(SGOT) 33 U/L 04/24/2018 Comp Metabolic Gor986 ALT(SGPT) 16 U/L 04/24/2018 Comp Metabolic Jyi329 BILI T 1.8 mg/dL 04/24/2018 Comp Metabolic Tls054 ALBUMIN 4.0 g/dL 04/24/2018 Comp Metabolic She176 TPRO 5.7 g/dL 04/24/2018 Comp Metabolic Zrq514 GLOB 1.7 g/dL 04/24/2018 Comp Metabolic Qsv161 A/G Ratio 2.3 Ratio 04/24/2018 Comp Metabolic Ihv392 Osmo 284 mOsmo 04/24/2018 Tsh Ord6 TSH (3rd IS) 0.07 uIU/mL 02/13/2018 Free T4 Iba092 FREE T4 1.85 ng/dL 02/13/2018 %Hba1C Svk830 % HbA1c 33025-6 5.9 % 01/21/2017 %Hba1C Xnh756 Gluc Ave 123 mg/dL 01/21/2017 Comp Metabolic Lrb224 NA 136 mEq/L 01/21/2017 Comp Metabolic Yop559 K 4.3 mEq/L 01/21/2017 Comp Metabolic Fjq112 CL 99 mEq/L 01/21/2017 Comp Metabolic Trx637 CO2 30.0 mEq/L 01/21/2017 Comp Metabolic Czm262 ANION GAP 11 01/21/2017 Comp Metabolic Brz025 GLUCOSE 234 mg/dL 01/21/2017 Comp Metabolic Uto451 Creat 0.5 mg/dL 01/21/2017 Comp Metabolic Ths513 eGFR 115 ml/min/1.73m2 01/21/2017 Comp Metabolic Hjq314 BUN 10 mg/dL 01/21/2017 Comp Metabolic Xia953 B/C Ratio 18.5 Ratio 01/21/2017 Comp Metabolic Opp035 CALCIUM 8.8 mg/dL 01/21/2017 Comp Metabolic Ptp064 ALK PHOS 74 U/L 01/21/2017 Comp Metabolic Fcj699 AST(SGOT) 28 U/L 01/21/2017 Comp Metabolic Bgf035 ALT(SGPT) 15 U/L 01/21/2017 Comp Metabolic Xxh214 BILI T 1.1 mg/dL 01/21/2017 Comp Metabolic Ujc071 ALBUMIN 3.8 g/dL 01/21/2017 Comp Metabolic Tbs888 TPRO 5.8 g/dL 01/21/2017 Comp Metabolic Dpx606 GLOB 2.0 g/dL 01/21/2017 Comp Metabolic Iih313 A/G Ratio 1.9 Ratio 01/21/2017 Comp Metabolic Mvu757 Osmo 279 mOsmo 01/21/2017 Tsh Ord6 hTSH II 0.80 uIU/mL 04/03/2015 Bili D Ord93 BILI D 0.1 mg/dL 04/03/2015 Bili D Ord93 BILI I 0.9 mg/dL 04/03/2015 Free T4 Bur930 FREE T4 1.27 ng/dL 04/03/2015 Cbc With [...] Ord2 RDW 15.6 % 04/03/2015 Comp Metabolic Qwv471 NA 136 mEq/L 04/03/2015 Comp Metabolic Mfp750 K 4.3 mEq/L 04/03/2015 Comp Metabolic Kao798 CL 99 mEq/L 04/03/2015 Comp Metabolic Uma403 CO2 29.0 mEq/L 04/03/2015 Comp Metabolic Jjo492 ANION GAP 12 04/03/2015 Comp Metabolic Dor628 GLUCOSE 120 mg/dL 04/03/2015 Comp Metabolic Ias664 Creat 0.5 mg/dL 04/03/2015 Comp Metabolic Bxj428 eGFR 118 ml/min/1.73m2 04/03/2015 Comp Metabolic Ujx441 BUN 11 mg/dL 04/03/2015 Comp Metabolic Tpw582 B/C Ratio 20.8 Ratio 04/03/2015 Comp Metabolic Qnb048 CALCIUM 9.3 mg/dL 04/03/2015 Comp Metabolic Hbv750 ALK PHOS 61 U/L 04/03/2015 Comp Metabolic Mpo347 AST(SGOT) 28 U/L 04/03/2015 Comp Metabolic Hzu297 ALT(SGPT) 16 U/L 04/03/2015 Comp Metabolic Xhf275 BILI T 1.0 mg/dL 04/03/2015 Comp Metabolic Dgp774 ALBUMIN 4.1 g/dL 04/03/2015 Comp Metabolic Dlg664 TPRO 6.1 g/dL 04/03/2015 Comp Metabolic Axv831 GLOB 2.0 g/dL 04/03/2015 Comp Metabolic Pxa228 A/G Ratio 2.1 Ratio 04/03/2015 Comp Metabolic Ffu184 Osmo 273 mOsmo 04/03/2015 Review of Systems System Result Effective Dates Constitutional recent illness 10/21/2018 Constitutional No chills [...] pitting 03/09/2018 None Full Exam - General 1995 [...] III/ 03/09/2018 None Full Exam - General 1995 Abdomen abdominal exam Overall: no tenderness 03/09/2018 None Full Exam - General 1995 Abdomen abdominal exam Overall: normal bowel sounds [...] 1994 Eyes conjunctiva /eyelids Overall: cornea clear 09/04/2017 [...] FLU VACC PRSV FREE INC ANTIG CPT-4: 23643 04/23/2018 TRIAMCINOLONE ACET INJ NOS CPT-4: J3301 12/26/2017 ADMIN INFLUENZA VIRUS VAC CPT-4: G0008 04/16/2017 FLU VACC PRSV FREE INC ANTIG CPT-4: 77729 04/16/2017 TRIAMCINOLONE ACET INJ NOS CPT-4: J3301 11/16/2015 ROCEPHIN, PER 250 MG CPT-4: J0696 11/16/2015 Vital Signs Date Vital 10/21/2018 Blood Pressure 1: 122/56 Code : [...] Code : 8480-6 BMI: 23.6 Code : 31190-2 Heart Rate 1 : 59 bpm Height: 5'1" Respiratory Rate: 18 bpm SpO2: 99% Temperature: 37.0 (C) / 98.6 (F ) Weight: 125 lbs 04/23/2018 Blood Pressure 2: 118/62 Code : 8480-6 BMI: 22.3 Code : 08803-6 Heart Rate 1 : 73 bpm Height: 5'1" SpO2: 97% Weight: 118 lbs 04/01/2018 Blood Pressure 1: 136/72 Code : 8480-6 BMI: 26.6 Code : 17995-7 Heart Rate 1 : 75 bpm Height: 5'1" SpO2: 98% Weight: 141 lbs 03/18/2018 Blood Pressure 1: 132/62 Code : 8480-6 Heart Rate 1: 61 bpm Height: 5'1" SpO2: 96% Weight: 03/09/2018 Blood Pressure 1: 122/60 Code : 8480-6 Heart Rate 1: 65 bpm Height: 5'1" SpO2: 98% Weight: 02/12/2018 Blood Pressure 1: 100/68 Code : 8480-6 BMI: 24.3 Code : 78424-4 Heart Rate 1 : 68 bpm Height: 5'1" SpO2: 96% Weight: 128 lbs 13 oz 12/26/2017 Blood Pressure 1: 126/68 Code : 8480-6 BMI: 26.7 Code : 76741-1 Heart Rate 1 : 66 bpm Height: 5'1" SpO2: 98% Temperature: 36.8 (C) / 98.2 (F) Weight: 141 lbs 8 oz 12/04/2017 Blood Pressure 1: 132/76 Code : 8480-6 BMI: 26.5 Code : 47689-8 Heart Rate 1 : 73 bpm Height: 5'1" SpO2: 96% Weight: 140 lbs 11/13/2017 Blood Pressure 1: 126/62 Code : 8480-6 Heart Rate 1: 69 bpm Height: 5'1" SpO2: 96% Weight: 11/06/2017 Blood Pressure 1: 142/84 Code : 8480-6 BMI: 25.7 Code : 85081-8 Heart Rate 1 : 78 bpm Height: 5'1" SpO2: 95% Temperature: 36.9 (C) / 98.5 (F) Weight: 136 lbs 10/29/2017 Blood Pressure 1: 132/68 Code : 8480-6 BMI: 26.8 Code : 68828-7 Heart Rate 1 : 70 bpm Height: 5'1" SpO2: 98% Weight: 142 lbs 09/04/2017 Blood Pressure 1: 132/74 Code : 8480-6 BMI: 25.9 Code : 68252-1 Heart Rate 1 : 68 bpm Height: 5'1" SpO2: 96% Weight: 137 lbs 08/08/2017 Blood Pressure 1: 118/72 Code : 8480-6 BMI: 26.6 Code : 19012-8 Heart Rate 1 : 68 bpm Height: 5'1" SpO2: 95% Weight: 141 lbs 05/29/2017 Blood Pressure 1: 142/78 Code : 8480-6 BMI: 26.3 Code : 24525-4 Heart Rate 1 : 65 bpm Height: 5'1" SpO2: 95% Weight: 139 lbs 04/16/2017 Blood Pressure 1: 136/62 Code : 8480-6 BMI: 27.4 Code : 41655-5 Heart Rate 1 : 38 bpm Height: 5'1" SpO2: 98% Weight: 145 lbs 02/10/2017 Blood Pressure 1: 124/70 Code : 8480-6 BMI: 27.4 Code : 16756-2 Heart Rate 1 : 70 bpm Height: 5'1" SpO2: 96% Weight: 145 lbs 01/21/2017 Blood Pressure 1: 120/70 Code : 8480-6 BMI: 27.2 Code : 00202-1 Heart Rate 1 : 65 bpm Height: 5'1" SpO2: 95% Weight: 144 lbs 12/18/2016 Blood Pressure 1: 122/74 Code : 8480-6 BMI: 27.4 Code : 75996-1 Heart Rate 1 : 66 bpm Height: 5'1" SpO2: 97% Weight: 145 lbs 08/26/2016 Blood Pressure 1: 110/64 Code : 8480-6 BMI: 28.0 Code : 43082-3 Heart Rate 1 : 67 bpm Height: 5'1" SpO2: 97% Weight: 148 lbs 02/27/2016 Blood Pressure 1: 126/74 Code : 8480-6 Heart Rate 1: 67 bpm Height: 5'1" SpO2: 97% 02/19/2016 Blood Pressure 1: 130/80 Code : 8480-6 BMI: 28.2 Code : 84390-4 Heart Rate 1 : 74 bpm Height: 5'1" SpO2: 96% Weight: 149 lbs 02/08/2016 Blood Pressure 1: 122/78 Code : 8480-6 BMI: 28.2 Code : 67575-7 Heart Rate 1 : 63 bpm Height: 5'1" SpO2: 96% Weight: 149 lbs 11/16/2015 Blood Pressure 1: 128/70 Code : 8480-6 BMI: 27.8 Code : 24498-0 Heart Rate 1 : 64 bpm Height: 5'1" SpO2: 97% Weight: 147 lbs 07/18/2015 Blood Pressure 1: 110/60 Code : 8480-6 BMI: 28.5 Code : 25316-1 Heart Rate 1 : 61 bpm Height: 5'1" SpO2: 97% Weight: 151 lbs 06/27/2015 Blood Pressure 1: 122/60 Code : 8480-6 BMI: 28.9 Code : 97356-0 Heart Rate 1 : 63 bpm Height: 5'1" SpO2: 95% Weight: 153 lbs 06/19/2015 Blood Pressure 1: 120/78 Code : 8480-6 Heart Rate 1: 68 bpm SpO2: 96% Weight: 154 lbs 04/03/2015 Blood Pressure 1: 128/68 Code : 8480-6 BMI: 29.1 Code : 82150-1 Heart Rate 1 : 70 bpm Height: 5'1" SpO2: 97% Weight: 154 lbs 02/27/2015 Blood Pressure 1: 122/84 Code : 8480-6 BMI: 29.5 Code : 28185-9 Heart Rate 1 : 67 bpm Height: 5'1" SpO2: 95% Weight: 156 lbs 01/26/2015 Blood Pressure 1: 132/70 Code : 8480-6 BMI: 30.2 Code : 96718-3 Heart Rate 1 : 76 bpm Height: 5'1" Weight: 160 lbs 01/16/2015 Blood Pressure 1: 140/70 Code : 8480-6 BMI: 30.0 Code : 16655-8 Heart Rate 1 : 78 bpm Height: 5'1" Respiratory Rate: 20 bpm Weight: 159 lbs 12/05/2014 Blood Pressure 1: 138/78 Code : 8480-6 BMI: 30.8 Code : 52827-4 Heart Rate 1 : 76 bpm Height: 5'1" Weight: 163 lbs Functional Status No Functional Status data History of Present Illness Symptom Name Status Result Effective Date Notes Quality chronic 10/21 None Quality primary hypertension [...] bring in readings 2018 -Checked at V Pertinent Findings edema 09/23/2018 None Quality chronic [...] ill contacts 07/23/2018 she is in a senior care [facility] recumbent position 07/23/2018 None Pertinent Findings [...] ill contacts 07/07/2018 she is in a senior care [facility] recumbent position 07/07/2018 None Hospital Follow [...] Performer Location Codes Date EST. PATIENT, LEVEL IV Diagnosis: Essential (primary) hypertension[ICD10: I10] Diagnosis: Other ascites[ICD10: R18.8] Diagnosis: Secondary biliary cirrhosis[ICD10: K74.4] Diagnosis: Low back pain[ICD10: M54.5] Diagnosis: Other mucopurulent conjunctivitis, bilateral[ICD10: H10.023] Alexandria Barron MD, [facility] CPT-4: 29341 10/21/2018 ([id number]) [id number] EST. PATIENT, LEVEL IV Diagnosis: Essential (primary) hypertension[ICD10: I10] Diagnosis: Localized edema[ICD10: R60.0] Diagnosis: Atrophy of thyroid (acquired)[ICD10: E03.4] Alexandria Barron MD, [facility] CPT-4: 65107 09/23/2018 [id number] EST. PATIENT, LEVEL III Diagnosis: Essential (primary) hypertension[ICD10: I10] Diagnosis: Localized edema[ICD10: R60.0] Светлана Barron MD, [facility] CPT-4 : 40537 09/14/2018 ([id number]) [id number] EST. PATIENT, LEVEL IV Diagnosis: Essential (primary) hypertension[ICD10: I10] Diagnosis: Lymphedema, not elsewhere classified[ICD10: I89.0] Diagnosis: Other ascites[ICD10: R18.8] Alexandria Barron MD, [facility] CPT- 4: 39073 07/23/2018 ([id number]) [id number] EST. PATIENT, LEVEL IV Diagnosis: Essential (primary) hypertension[ICD10: I10] Diagnosis: Atrophy of thyroid (acquired)[ICD10: E03.4] Diagnosis: Lymphedema, not elsewhere classified[ICD10: I89.0] [facility] CPT-4: 08890 07/07/2018 ([id number]) 28033 EST. PATIENT, LEVEL IV Diagnosis: Essential (primary) hypertension[ICD10: I10] Diagnosis: Localized edema[ICD10: R60.0] [facility] CPT- 4: 23921 06/22/2018 ([id number]) 27111 EST. PATIENT, LEVEL IV Diagnosis: Atrophy of thyroid (acquired)[ICD10: E03.4] Diagnosis: Essential (primary) hypertension[ICD10: I10] Diagnosis: Other chronic pain[ICD10: G89.29] Diagnosis: Pain in left knee[ICD10: M25.562] Diagnosis: Low back pain[ICD10: M54.5] [facility] CPT- 4: 85969 05/25/2018 ([id number]) 98383 EST. 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 PATIENT, LEVEL IV Diagnosis: Essential (primary) hypertension[ICD10: I10] Diagnosis: Low back pain[ICD10: M54.5] Diagnosis: Localized edema[ICD10: R60.0] Diagnosis: Other chronic pain[ICD10: G89.29] Diagnosis: Obstructive sleep apnea (adult) (pediatric)[ICD10: G47.33] [facility] CPT-4: 33788 04/01/2018 ([id number]) 90012 EST. PATIENT, LEVEL IV Diagnosis: Essential (primary) hypertension[ICD10: I10] Diagnosis: Other chronic pain[ICD10: G89.29] Diagnosis: Unsteadiness on feet[ICD10: R26.81] Alexandria Barron MD, [facility] CPT-4: 30468 03/18/2018 ([id number]) 02077 EST. PATIENT, LEVEL IV Diagnosis: Low back pain[ICD10: M54.5] Diagnosis: Localized edema[ICD10: R60.0] Diagnosis: Essential (primary) hypertension[ICD10: I10] Diagnosis: Other chronic pain[ICD10: G89.29] Diagnosis: Pressure ulcer of left buttock, stage 1[ICD10: L89.321] Diagnosis: Obstructive sleep apnea (adult) (pediatric)[ICD10: G47.33] Alexandria Barron MD , [facility] CPT-4: 02115 03/09/2018 ([id number]) 87212 EST. 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 PATIENT, LEVEL III Diagnosis: Cough[ICD10: R05] Diagnosis: Acute bronchitis, unspecified[ICD10: J20.9] Sandra Barron MD, [facility] CPT-4: 01241 12/26/2017 ([id number]) 73318 EST. PATIENT, LEVEL IV Diagnosis: Essential (primary) hypertension[ICD10: I10] Diagnosis: Other specified noninfective disorders of lymphatic vessels and lymph nodes[ICD10: I89.8] Diagnosis: Atrophy of thyroid (acquired)[ICD10: E03.4] [facility] CPT-4: 53868 12/04/2017 98749 EST. PATIENT, LEVEL III Diagnosis: Candidiasis of skin and nail[ICD10: B37.2] Светлана [facility] CPT-4: 08595 11/13/2017 ([id number]) 60760 EST. PATIENT, LEVEL III Diagnosis: Lymphedema, not elsewhere classified[ICD10: I89.0] Diagnosis: Low back pain[ICD10: M54.5] Diagnosis: Localized edema[ICD10: R60.0] Alexandria Barron MD, [facility] CPT- 4: 81541 11/06/2017 ([id number]) Miscellaneous no charge Diagnosis: Localized edema[ICD10: R60.0] Diagnosis: Cellulitis of right lower limb[ICD10: L03.115] Diagnosis: Cellulitis of left lower limb[ICD10: L03.116] Светлана Barron MD, [facility] CPT-4: 83332 11/03/2017 01471 EST. PATIENT, LEVEL III Diagnosis: Cellulitis of left lower limb[ICD10: L03.116] Diagnosis: Localized edema[ICD10: R60.0] Светлана Barron MD, [facility] CPT-4 : 35525 10/29/2017 ([id number]) 76490 EST. PATIENT, LEVEL IV Diagnosis: Essential (primary) hypertension[ICD10: I10] Diagnosis: Atrophy of thyroid (acquired)[ICD10: E03.4] Diagnosis: Pain in left knee[ICD10: M25.562] Diagnosis: Stiffness of left hand, not elsewhere classified[ICD10: M25.642] Diagnosis: Stiffness of right hand, not elsewhere classified[ICD10: M25.641] Alexandria Barron MD, [facility] CPT-4: 05925 09/04/2017 ([id number]) 16744 EST. PATIENT, LEVEL III Diagnosis: Other viral warts[ICD10: B07.8] Diagnosis: Other skin changes[ICD10: R23.8] Alexandria Barron MD, [facility] CPT-4: 86677 08/08/2017 ([id number]) 11066 EST. PATIENT, LEVEL IV Diagnosis: Essential (primary) hypertension[ICD10: I10] Diagnosis: Atrophy of thyroid (acquired)[ICD10: E03.4] Diagnosis: Low back pain[ICD10: M54.5] Alexandria Barron MD, [facility] CPT- 4: 39372 05/29/2017 ([id number]) 69000 EST. PATIENT, LEVEL IV Diagnosis: Essential (primary) hypertension[ICD10: I10] Diagnosis: Atrophy of thyroid (acquired)[ICD10: E03.4] Diagnosis: Encounter for immunization[ICD10: Z23] Diagnosis: Sick sinus syndrome[ICD10: I49.5] Alexandria Barron MD, [facility] CPT-4: 74462 04/16/2017 ([id number]) Miscellaneous no charge Diagnosis: Cellulitis of left lower limb[ICD10: L03.116] Светлана Barron MD, [facility] CPT-4: 44626 02/24/2017 [id number] EST. PATIENT, LEVEL III Diagnosis: Cellulitis of left lower limb[ICD10: L03.116] Diagnosis: Cellulitis of right lower limb[ICD10: L03.115] Светлана Barron MD, [facility] CPT-4: 28200 02/10/2017 ([id number]) 14664 EST. PATIENT, LEVEL IV Diagnosis: Essential (primary) hypertension[ICD10: I10] Diagnosis: Other abnormal glucose[ICD10: R73.09] Diagnosis: Localized edema[ICD10: R60.0] Alexandria Barron MD, [facility] CPT- 4: 28698 01/21/2017 [id number] EST. PATIENT, LEVEL IV Diagnosis: Essential (primary) hypertension[ICD10: I10] Diagnosis: Pain in left knee[ICD10: M25.562] Diagnosis: Atrophy of thyroid (acquired)[ICD10: E03.4] Alexandria Barron MD, [facility] CPT-4: 02280 12/18/2016 ([id number]) 78786 EST. PATIENT, LEVEL IV Diagnosis: Essential (primary) hypertension[ICD10: I10] Diagnosis: Pain in left knee[ICD10: M25.562] Diagnosis: Other instability, left knee[ICD10: M25.362] Diagnosis: Other chronic pain[ICD10: G89.29] Alexandria Barron MD, [facility] CPT-4: 78102 08/26/2016 ([id number]) 92188 EST. PATIENT, LEVEL III Diagnosis: Localized edema[ICD10: R60.0] Sandra Barron MD, [facility] CPT-4: 21302 02/27/2016 ([id number]) Miscellaneous no charge Diagnosis: Lymphedema, not elsewhere classified[ICD10: I89.0] Sandra Barron MD, [facility] CPT-4: 02275 02/20/2016 ([id number]) 47292 EST. PATIENT, LEVEL III Diagnosis: Contusion of left lower leg, subsequent encounter[ICD10: S80.12XD] Diagnosis: Abrasion of scalp, subsequent encounter[ICD10: S00.01XD] Diagnosis: Laceration without foreign body of left upper arm, subsequent encounter[ICD10: S41.112D] Diagnosis: Localized edema[ICD10: R60.0] Sandra Barron MD, [facility] CPT-4: 23762 02/19/2016 ([id number]) Miscellaneous no charge Diagnosis: Laceration without foreign body of left upper arm, subsequent encounter[ICD10: S41.112D] Diagnosis: Abrasion of scalp, subsequent encounter[ICD10: S00.01XD] Sandra Barron MD , [facility] CPT-4: 11042 02/12/2016 ([id number]) 27113 EST. PATIENT, LEVEL IV Diagnosis: Contusion of left lower leg, initial encounter[ICD10: S80.12XA] Diagnosis: Abrasion of scalp, initial encounter[ICD10: S00.01XA] Diagnosis: Laceration without foreign body of left upper arm, initial encounter[ ICD10: S41.112A] Diagnosis: Localized edema[ICD10: R60.0] Diagnosis: Hypothyroidism, unspecified[ICD10: E03.9] Diagnosis: Essential (primary) hypertension[ICD10: I10] Alexandria Barron MD, [facility] CPT-4: 61631 02/08/2016 ([id number]) 11047 EST. PATIENT, LEVEL IV Diagnosis: Cough[ICD10: R05] Diagnosis: Low back pain[ICD10: M54.5] Diagnosis: Allergic rhinitis due to pollen[ICD10: J30.1] Diagnosis: Acute upper respiratory infection, unspecified[ICD10: J06.9] Diagnosis: Acute bronchitis, unspecified[ICD10: J20.9] Sandra Barron MD, [facility] CPT-4: 83803 11/16/2015 ([id number]) 39687 EST. PATIENT, LEVEL IV Diagnosis: Hypothyroidism, unspecified[ICD10: E03.9] Diagnosis: Lymphedema, not elsewhere classified[ICD10: I89.0] Alexandria Barron MD, [facility] CPT-4: 91623 07/18/2015 [id number] EST. PATIENT, LEVEL IV Diagnosis: Contusion of left lower leg, subsequent encounter[ICD10: S80.12XD] Diagnosis: Cellulitis of left lower limb[ICD10: L03.116] Светлана Barron MD, [facility] CPT-4: 12807 06/27/2015 15945 EST. PATIENT, LEVEL III Diagnosis: Contusion of left lower leg, initial encounter[ICD10: S80.12XA] Diagnosis: Cellulitis of left lower limb[ICD10: L03.116] Светлана Barron MD, [facility] CPT-4: 45460 06/19/2015 ([id number]) 87793 EST. 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 PATIENT, LEVEL III Diagnosis: Rosacea, acne[ICD9: 695.3] Diagnosis: Lymphedema[ICD9: 457.1] Sandra Barron MD, [facility] CPT-4: 88590 02/27/2015 ([id number]) 94423 EST. PATIENT, LEVEL III Diagnosis: Right leg swelling[ICD9: 729.81] Alexandria Barron MD, [facility] CPT-4: 88548 01/26/2015 ([id number]) 73370 EST. PATIENT, LEVEL III Diagnosis: CELLULITIS OF LEG[ICD9: 682.6] Mary Ann Barron MD, [facility] CPT-4 : 68752 01/16/2015 ([id number]) OFFICE VISIT, NEW - LEVEL 4 Diagnosis: Back pain[ICD9: 724.5] Diagnosis: Lymphedema[ICD9: 457.1] Diagnosis: Sacroiliitis[ICD9: 720.2] Diagnosis: Chronic pain[ICD9: 338.29] Diagnosis: HYPOTHYROIDISM[ICD9: 244.9] Diagnosis: Dysphagia[ICD9: 787.20] Alexandria Barron MD, [facility] CPT-4: 54110 12/05/2014 Plan of Care Planned Activity Notes Codes Status Date Visit Plan: Hypertension - well controlled - [...] tamiflu 75mg daily x 10 days. 10/21/2018 Patient Education: Patient Medication Summary Completed [...] compression wraps. 09/23/2018 Appointment: Alexandria Barron WPtel: [address] [place], [place] [id number] (15 min) Moderate 09/23/2018 Patient Education: Patient [...] concerns. 09/14/2018 Appointment: [facility]ана [phone] [facility] [place] (30 min) Complex 09/14/2018 Patient Education: [...] compression 07/23/2018 [facility]ment[phone] [facility] [place] (15 min) Moderate 07/23/2018 Patient Education: Patient [...] while seated. 07/07/2018 Appointment: Alexandria Barron WPtel: [facility] [place] (15 min) Moderate 07/07/2018 Patient [...] edema. 06/22/2018 Appointment: Alexandria Barron WPtel: [phone] [facility] [place] (15 min) Moderate 06/22/2018 Patient Education: Patient Medication Summary Completed 06/22/2018 Appointment: Alexandria Barron WPtel: [phone] [facility] [place] (15 min) Moderate 05/27/2018 Visit Plan: Hypertension [...] of over-medication. 05/25/2018 Appointment: Alexandria Bar[facility] [phone] [facility] [place] (15 min) Moderate 05/25/2018 Patient Education: Patient Medication Summary Completed 05/25/2018 Patient Education: Back Pain Completed 05/25/2018 Appointment: Светлана Garcia WPtel: [phone] [facility] [place] (30 min) Complex 05/15/2018 Visit Plan: Hypertension [...] in clinic. 04/23/2018 Appointment: Alexandria Bar[phone] [facility] (15 min) Moderate 04/23/2018 Patient Education: [...] request. 04/01/2018 Appointment: Alexandria Barron WPtel: [phone] [facility] (15 min) Moderate 04/01/2018 Patient Education: [...] well. 03/18/2018 Appointment: Alexandria Bar[phone] [facility] (15 min) Moderate 03/18/2018 Patient Education: [...] on buttock. 03/09/2018 Appointment: Alexandria Bar[facility] [phone] [facility] (15 min) Moderate 03/09/2018 Patient Education: [...] report. 02/12/2018 Appointment: Alexandria Barron WPtel: [phone] [facility] [place] (15 min) Moderate 02/12/2018 Patient Education: Patient Medication Summary Completed 02/12/2018 Visit Plan: Bronchitis- Pt advised to increase fluids, vitamin C. Discussed natural and expected course of this diagnosis and need to alert me if symptoms do not follow expected course, or if any worse. RX sent to patient's pharmacy. 12/26/2017 Appointment: Sandra Mcdonald WPtel: [phone] [phone] [place] (15 min) Moderate 12/26/2017 Patient [...] seated. 12/04/2017 Appointment: Alexandria Barron WPtel: [phone] [facility] (30 min) Complex 12/04/2017 Patient Education: Patient Medication Summary Completed 12/04/2017 Visit Plan: Yeast rash - The patient was instructed in appropriate care. The patient was instructed to use the ointment as per RX. The patient is to call for any change in symptoms, increase in size of the lesion, increase in pain, worsening redness, warmth, discharge. 11/13/2017 Appointment: Светлана Garcia WPtel: [phone] [facility] (30 min) Complex 11/13/2017 Patient Education: Patient [...] wound care. 11/06/2017 Appointment: Alexandria Barron WPtel: [facility] (30 min) Complex 11/06/2017 Patient Education: Patient [...] peripheral edema. 10/29/2017 Appointment: Светлана Garcia WPtel: [facility] (15 min) Moderate 10/29/2017 Patient [...] pennsaid sample 09/04/2017 Appointment: Alexandria Barron WPtel[facility] (15 min) Moderate 09/04/2017 Patient Education: Patient Medication Summary Completed 09/04/2017 Appointment: Светлана Garcia WPtel: [facility] (15 min) Moderate 08/18/2017 Visit Plan: Skin lesion on face - lesion removed with scalpel and dressed with medihoney, pt to RTC in 10 days for treatment of the lesion if not fully resolved. 08/08/2017 Appointment: Alexandria Barron [facility]Ptel[facility] [phone] [facility] (30 min) Complex 08/08/2017 Patient Education: [...] over- medication. 05/29/2017 Appointment: Alexandria Barron WPtel: [phone] [facility] (15 min) Moderate 05/29/2017 Patient Education: Patient Medication Summary Completed 05/29/2017 Appointment: Alexandria Barron WPtel: [phone] [facility] (15 min) Moderate 04/30/2017 Referral: Alberta Wilks [address] [place], [place] [id number] Patient informed. Referral info faxed. [...] of control. 04/16/2017 Appointment: Alexandria Barron WPtel: [facility] (15 min) Moderate 04/16/2017 Patient Education: Patient Medication Summary Completed 04/16/2017 Care Plan: Referral Order SNOMED-CT : [id number] Pending 04/16/2017 Visit Plan: Wound healed - no further treatment at this time. 02/24/2017 Appointment: Nurse Visit 02/24/2017 Patient Education: Patient Medication Summary Completed 02/24/2017 Appointment: Nurse Visit 02/18/2017 Appointment: Светлана Garcia WPtel: [phone] [facility] [place] (30 min) Complex 02/14/2017 Visit Plan: Cellulitis - The patient was instructed in appropriate wound care. The patient was instructed to use the antibiotic as per RX. The patient is to call for any change in symptoms, increase in size of the lesion, increase in pain, worsening redness, warmth, discharge. 02/10/2017 Appointment: Светлана Garcia WPtel: [phone] [facility] (30 min) Complex 02/10/2017 Patient Education: [...] intake. 01/21/2017 Appointment: Alexandria Barron WPtel: [phone] [facility] [place] (15 min) Moderate 01/21/2017 Patient Education: Patient [...] improving. 12/18/2016 Appointment: Alexandria Barron WPtel: [phone] [facility] (15 min) Moderate 12/18/2016 Patient Education: Patient [...] to specialist 08/26/2016 Appointment: Alexandria Barron WPtel: [phone] [facility] [place] (15 min) Moderate 08/26/2016 Patient Education: Patient Medication Summary Completed 08/26/2016 Care Plan: Referral Order SNOMED-CT : [id number] Pending 08/26/2016 Appointment: Sandra Mcdonald WPtel: [phone] [place] (30 min) Complex 03/11/2016 Visit Plan: Edema - improved-pt has been advised to elevate legs to prevent dependent edema, compression has been recommended to help to naturally decrease peripheral edema. Diuretic use has been discussed and pt has been instructed in appropriate use of such medication as necessary to further attempt to reduce peripheral edema. 02/27/2016 Appointment: Sandra Mcdonald WPtel: [phone] [place] (30 min) Complex 02/27/2016 Patient Education: Patient Medication Summary Completed 02/27/2016 Appointment: Nurse Visit 02/20/2016 Patient Education: Patient Medication Summary Completed 02/20/2016 Visit Plan: Abrasion of scalp-healing well-continue wound care as directed Laceration left arm-healing well-continue wound care-may leave open to air Contusion of left vne-kqqbrewxh-qpsruqev to monitor Edema-elevate legs-follow up tomorrow for quick check of swelling 02/19/2016 Appointment: Sandra Mcdonald WPtel: [phone] [phone] [place] (15 min) Moderate 02/19/2016 Patient Education: [...] peripheral edema. 02/08/2016 Appointment: Alexandria Barron WPtel: [address] [place], [place] [address] (15 min) Moderate 02/08/2016 Patient Education: Patient [...] of swelling. 07/18/2015 Appointment: Alexandria Barron WPtel: [phone] [facility] (15 min) Moderate 07/18/2015 Patient Education: [...] not improving. 04/03/2015 Appointment: Alexandria Barron WPtel: [phone] [facility] (15 min) Moderate 04/03/2015 Patient Education: Patient Medication Summary Completed 04/03/2015 Visit Plan: Rosacea-continue finacea as directed-add metronidazole cream twice daily-call if symptoms do not improve or if any worse. Rqtxfhylin-envemvm-myxqeqfh with wraps-no change in treatment 02/27/2015 Appointment: [...] EGD. 12/05/2014 Appointment: Alexandria Bar[facility]Ptel[phone] [facility] [place] ([place] New Patient 12/05/2014 Patient Education: Patient Medication Summary Completed 12/05/2014 Patient Education: Hypertension Completed 12/05/2014 Referral: Jose A Rios Referral Appointment Requested Referral: [facility] [place] Referral Appointment Requested Referral: Amarjit Veronica WPtel: [phone] [facility] Referral Appointment Requested Referral: Jayro Wetzel WPtel: Referral Appointment Requested Instructions Comment VENOUS DOPPLER RIGHT LEG . Right leg swelling-significantly more than left-plan for venous doppler- continued compression-elevated as much as possible. Patient verbalized understanding of plan. . Hypertension - well controlled - continue [...] supportive care, call if not improving. . Hypertension - [...] to further attempt to reduce peripheral edema. kenalog . Bronchitis- Pt advised to increase [...] change in symptoms, worsening redness, warmth, discharge. pill spray is called pill glide or [...] leave open to air Contusion of left kom-rdvagctrv-bpaetcvk to monitor Edema-elevate legs-follow up tomorrow for [...] do not improve or if any worse. Ouhhoeqcxq-wfpyhdn-fhidcquk with wraps-no change in treatment . Hypertension [...] increase in pain, or other concerns. . Cellulitis - continue with oral antibiotics [...] no further treatment at this time. . Hypertension - well controlled - continue [...] and understands the consequences of over-medication. . Hypothyroidism - pt with chronic hypothyroidism, [...]
--- OUTSIDE RECORDS SUMMARY | 2018-11-23 15:32 | XMS REPORT | CCD ---
Author Author [facility] Organization [facility] Address [address] [place] [address] Phone Care Team Providers Care Spectacle Truer Name Role Phone PP Unavailable CCM Unavailable Summary Purpose Interface Exchange Insurance Providers Payer name Policy type / Coverage type Covered alliance party ID Effective Begin Date Effective End Date WPS Medicare Part B Medicare Part B [id number] Unknown Unknown [facility] Medicare Part B [id number] Unknown Unknown Family history Brother Diagnosis Age At Onset Diabetes Unknown Skin cancer Unknown Father Diagnosis Age At Onset Heart disease Unknown Mother Diagnosis Age At Onset advanced age Unknown Hypothyroid Unknown Social History Social History Element Codes Description Effective Dates Living arrangements Unknown Fdc VCV 09/23/2018 Marital status Unknown Single 12/05/2014 Number of children Unknown 0 12/05/2014 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[address]: 5568325 Quit 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 quit 20-25 years ago 12/05/2014 Alcohol history Unknown occasionally drinks alcohol 12/05/2014 Allergies, Adverse Reactions, Alerts Substance Reaction Codes Entered Date Inactivated Date Status * NO KNOWN FOOD ALLERGIES Unknown 12/05/2014 No Inactive Date Active SULFA (SULFONAMIDES) nausea Unknown 09/04/2017 No Inactive Date Active Past Medical History Illness Codes Condition Status Onset Date Resolved Date Atrophy of thyroid (acquired) ICD-9: 244.8 ICD-10: E03.4 Active 12/18/2016 Unknown Essential (primary) hypertension ICD-9: 401.1 ICD-10: I10 Active 02/07/2016 Unknown Localized edema ICD-9 : 782.3 ICD-10: R60.0 Active 02/26/2016 Unknown Lymphedema, not elsewhere classified ICD-9: 457.1 ICD-10: I89.0 Active 02/19/2016 Unknown Other ascites ICD-9: 789.59 ICD-10: R18.8 Active 07/23/2018 Unknown Encounter for immunization ICD-9: V04.81 ICD-10: Z23 Active 04/16/2017 Unknown Low back pain ICD-9: 724.2 ICD-10: M54.5 Active 11/15/2015 Unknown Other chronic pain ICD -9: 338.29 [...] Problems Condition Codes Effective Dates Condition Status Atrophy of thyroid (acquired) ICD-9: 244.8 ICD-10: E03.4 12/18/2016 Active Essential (primary) hypertension ICD-9: 401.1 ICD-10: I10 02/07/2016 Active Localized edema ICD-9 : 782.3 ICD-10: R60.0 02/26/2016 Active Lymphedema, not elsewhere classified ICD-9: 457.1 ICD-10: I89.0 02/19/2016 Active Other ascites ICD-9: 789.59 ICD-10: R18.8 07/23/2018 Active Encounter for immunization ICD-9: V04.81 ICD-10: Z23 04/16/2017 Active Low back pain ICD-9: 724.2 ICD-10: M54.5 11/15/2015 Active Other chronic pain ICD -9: 338.29 [...] Fill Instructions oxycodone 5 mg tablet RxNorm: 0487627 2 Tablet(s) PO BID 201810/27/2018 Active oxycodone 5 mg tablet RxNorm: 2431211 2 Tablet(s) PO BID 201809/27/2018 Inactive oxycodone 5 mg tablet RxNorm: 0449653 2 Tablet(s) PO BID 201708/29/2018 Inactive Lasix 40 mg tablet RxNorm: 370718 1 Tablet(s) PO daily as needed edema if more than 3 pounds weight gain in 48 hours 07/23/2018 11/19/2018 Active oxycodone 5 mg tablet RxNorm: 3230923 2 Tablet(s) PO BID 201707/30/2018 Inactive nadolol 20 mg tablet RxNorm: 308086 1/2 Tablet(s) PO daily No Stop Date Active oxycodone 5 mg tablet RxNorm: 1099948 2 Tablet(s) PO BID 201707/15/2018 Inactive nadolol 20 mg tablet RxNorm: 469047 1 Tablet(s) TAKE 1 TABLET BY MOUTH EVERY DAY 05/25/2018 06/21/2018 Inactive Generic For:*CORGARD 20 MG TABLET 05/21/2018 10:10: 43 AM spironolactone 50 mg tablet RxNorm: 296542 TAKE 1 TABLET BY MOUTH EVERY DAY 05/21/2018 06/03/2018 Inactive Generic For:ALDACTONE 50MG 05/21/2018 10:10:31 AM pramipexole 0.25 mg tablet RxNorm: 536086 TAKE 1 TABLET BY MOUTH TWICE DAILY 05/21/2018 06/03/2018 Inactive Generic For:MIRAPEX 0.25MG TAB 05/21/2018 10:10:48 AM levothyroxine 88 mcg tablet RxNorm: 310095 TAKE 1 TABLET BY MOUTH EVERY DAY WITH A 100MCG TABLET 05/21/2018 06/03/2018 Inactive Generic For:*SYNTHROID 0.088MG TAB 05/21/2018 10:10:11 AM levothyroxine 100 mcg tablet RxNorm: 367656 TAKE 1 TABLET BY MOUTH EVERY DAY , TAKE WITH AN 88 MCG TABLET 05/21/2018 Inactive Generic For:*SYNTHROID 100 MCG TABLET 05/21/2018 10:10:04 AM Vitamin D3 2,000 unit capsule RxNorm: 840235 1 Capsule(s) PO daily 05/21/2018 No Stop Date Active nadolol 20 mg tablet RxNorm: 737825 TAKE 1/2 TABLET BY MOUTH EVERY DAY 05/21/2018 05/24/2018 Inactive Generic For:*CORGARD 20 MG TABLET 05/21/2018 10:10:43 AM Ocuvite tablet RxNorm : 1 Tablet(s) PO BID 05/21/2018 09/22/2018 Inactive oxycodone 5 mg tablet RxNorm: 7731707 1 Tablet(s) PO QID as needed 05/15/2018 06/13/2018 Inactive pramipexole 0.25 mg tablet RxNorm: 864977 1 Tablet(s) PO BID 05/20/2018 Inactive Requip 0.25 mg tablet RxNorm: 426040 1 Tablet(s) PO BID 201705/03/2018 Inactive potassium chloride ER 10 mEq tablet,extended release RxNorm: 297677 1 Tablet(s) PO daily as needed when taking lasix 04/23/2018 08/20/2018 Inactive Lasix 40 mg tablet RxNorm: 476311 1 Tablet(s) PO daily as needed edema if more than 3 pounds weight loss in 48 hours 04/23/2018 07/22/2018 Inactive potassium chloride ER 10 mEq tablet,extended release RxNorm: 534532 1 Tablet(s) PO daily as needed when taking lasix 04/01/2018 04/22/2018 Inactive Lasix 40 mg tablet RxNorm: 479372 1 Tablet(s) PO daily as needed edema 04/01/2018 04/22/2018 Inactive oxycodone 5 mg tablet RxNorm: 8905011 1 Tablet(s) PO QID as needed 03/18/2018 04/16/2018 Inactive levothyroxine 88 mcg tablet RxNorm: 120204 1 Tablet(s) PO daily . Take with 100 mcg tablet. 02/19/2018 05/20/2018 Inactive spironolactone 50 mg tablet RxNorm: 071823 Tablet(s) TAKE 1 TABLET BY MOUTH DAILY 02/19/2018 05/20/2018 Inactive levothyroxine 100 mcg tablet RxNorm: 283198 1 Tablet(s) PO daily . Take with 88 mcg tablet 02/19/2018 02/18/2018 Inactive levothyroxine 88 mcg tablet RxNorm: 188453 1 Tablet(s) PO daily . Take with 100 mcg tablet. 02/19/2018 02/18/2018 Inactive levothyroxine 100 mcg tablet RxNorm: 426649 1 Tablet(s) PO daily . Take with 88 mcg tablet 02/19/2018 05/20/2018 Inactive spironolactone 25 mg tablet RxNorm: 203159 1 Tablet(s) PO daily 02/12/2018 02/18/2018 Inactive pt will let you know when she is ready for the refill oxycodone 10 mg tablet RxNorm: 3866012 1 Tablet(s) PO TID as needed 02/12/2018 03/13/2018 Inactive oxycodone 10 mg tablet RxNorm: 0085091 1 Tablet(s) PO Q6 as needed 01/22/2018 02/11/2018 Inactive spironolactone 50 mg tablet RxNorm: 237049 TAKE 1 TABLET BY MOUTH DAILY 01/05/2018 02/11/2018 Inactive Generic For:ALDACTONE 50MG 01/05/2018 8:27:46 AM Kenalog 40 mg/mL suspension for injection RxNorm: 0122169 1 Milliliter(s) Inj 12/26/2017 12/26/2017 Inactive Zithromax Z-Fransisco 250 mg tablet RxNorm: 131603 1 Tablet(s) PO UD 12/26/2017 12/30/2017 Inactive oxycodone 10 mg tablet RxNorm: 8472579 1 Tablet(s) PO Q6 as needed 11/25/2017 12/24/2017 Inactive nystatin 100,000 unit/gram topical powder RxNorm: 276243 1 Application TOP BID 11/13/2017 09/22/2018 Inactive nystatin 100,000 unit/gram topical cream RxNorm: 948385 Gram(s) TOP QID 11/12/2017 11/18/2017 Inactive nystatin 100,000 unit/gram topical cream RxNorm: 664066 Gram(s) TOP QID 11/12/2017 11/11/2017 Inactive Lasix 20 mg tablet RxNorm: 477592 1 Tablet(s) PO daily as needed edema 11/03/2017 11/07/2017 Inactive potassium chloride ER 10 mEq tablet,extended release RxNorm: 567446 1 Tablet(s) PO daily while on the lasix 11/03/201701/2018 Inactive Keflex 500 mg capsule RxNorm: 601521 1 Capsule(s) PO TID 201711/07/2017 Inactive potassium chloride ER 10 mEq tablet,extended release RxNorm: 688704 1 Tablet(s) PO daily while on the lasix 10/29/2017 Inactive Lasix 20 mg tablet RxNorm: 921936 1 Tablet(s) PO daily as needed edema 10/29/2017 10/31/2017 Inactive oxycodone 10 mg tablet RxNorm: 3695822 1 Tablet(s) PO Q6 as needed 09/29/2017 10/28/2017 Inactive levothyroxine 200 mcg tablet RxNorm: 135891 TAKE 1 TABLET BY MOUTH DAILY 09/01/2017 02/18/2018 Inactive Generic For:*SYNTHROID 0.2MG TAB 09/01/2017 8:36:32 AM Bactrim DS 800 mg-160 mg tablet RxNorm: 140517 1 Tablet(s) PO BID 08/07/2017 08/16/2017 Inactive Bactrim DS 800 mg-160 mg tablet RxNorm: 562430 1 Tablet(s) PO BID 08/07/2017 08/06/2017 Inactive oxycodone 10 mg tablet RxNorm: 1616788 1 Tablet(s) PO Q6 as needed 07/31/2017 08/29/2017 Inactive spironolactone 50 mg tablet RxNorm: 709705 1 Tablet(s) PO daily 06/30/2017 12/26/2017 Inactive Not due for a refill until next month nadolol 20 mg tablet RxNorm: 318143 1/2 Tablet(s) PO daily 11/28/2017 Inactive nadolol 20 mg tablet RxNorm: 005031 1 Tablet(s) PO daily 201609/22/2018 Inactive nadolol 20 mg tablet RxNorm: 383714 1/2 Tablet(s) PO daily 05/21/2017 Inactive oxycodone 10 mg tablet RxNorm: 6131810 1 Tablet(s) PO Q6 as needed 04/01/2017 04/30/2017 Inactive levothyroxine 200 mcg tablet RxNorm: 217844 TAKE 1 TABLET BY MOUTH DAILY 03/10/2017 08/31/2017 Inactive Generic For:*SYNTHROID 0.2MG TAB 03/10/2017 8:49:05 AM potassium chloride ER 10 mEq tablet,extended release RxNorm: 426821 1 Tablet(s) PO daily while on the lasix 02/18/2017 Inactive Lasix 20 mg tablet RxNorm: 272888 1 Tablet(s) PO daily as needed edema 02/18/2017 02/20/2017 Inactive Keflex 500 mg capsule RxNorm: 735121 1 Capsule(s) PO TID 201602/16/2017 Inactive Lasix 20 mg tablet RxNorm: 879663 1 Tablet(s) PO daily 201602/15/2017 Inactive potassium chloride ER 10 mEq tablet,extended release RxNorm: 854827 1 Tablet(s) PO daily while on the lasix 02/14/2017 Inactive Lasix 20 mg tablet RxNorm: 923943 1 Tablet(s) PO daily 201602/13/2017 Inactive potassium chloride ER 10 mEq tablet,extended release RxNorm: 298506 1 Tablet(s) PO daily while on the lasix 02/14/2017 Inactive oxycodone 10 mg tablet RxNorm: 6745784 1 Tablet(s) PO Q6 as needed 02/05/2017 03/06/2017 Inactive minocycline 50 mg tablet RxNorm: 098268 1 Tablet(s) PO Q72H 12/03/2017 Inactive spironolactone 50 mg tablet RxNorm: 777118 1 Tablet(s) PO daily 12/18/2016 06/15/2017 Inactive Not due for a refill until next month oxycodone 10 mg tablet RxNorm: 7907273 1 Tablet(s) PO Q6 as needed 12/05/2016 01/03/2017 Inactive nadolol 20 mg tablet RxNorm: 458989 1 Tablet(s) PO daily 201604/15/2017 Inactive oxycodone 10 mg tablet RxNorm: 6893566 1 Tablet(s) PO Q6 as needed 09/30/2016 10/29/2016 Inactive levothyroxine 200 mcg tablet RxNorm: 936903 TAKE 1 TABLET BY MOUTH DAILY 09/12/2016 03/09/2017 Inactive Generic For:*SYNTHROID 0.2MG TAB 09/12/2016 8:41:27 AM oxycodone 10 mg tablet RxNorm: 5588900 1 Tablet(s) PO Q6 as needed 08/06/2016 09/04/2016 Inactive oxycodone 10 mg tablet RxNorm: 5118139 1 Tablet(s) PO Q6 as needed 06/10/2016 07/09/2016 Inactive oxycodone 10 mg tablet RxNorm: 5845013 1 Tablet(s) PO Q6 as needed 04/05/2016 05/04/2016 Inactive levothyroxine 200 mcg tablet RxNorm: 478611 1 Tablet(s) PO daily 03/14/2016 09/09/2016 Inactive oxycodone 10 mg tablet RxNorm: 0476029 1 Tablet(s) PO Q6 as needed 02/08/2016 03/08/2016 Inactive Kenalog 40 mg/mL suspension for injection RxNorm: 3437325 Milliliter(s) Inj 11/16/2015 11/16/2015 Inactive Zithromax Z-Fransisco 250 mg tablet RxNorm: 285971 1 Tablet(s) PO UD 11/16/2015 11/20/2015 Inactive zpack, take probiotic while on abx oxycodone 10 mg tablet RxNorm: 5452315 1 Tablet(s) PO Q6 as needed 11/16/2015 02/07/2016 Inactive ceftriaxone 500 mg solution for injection RxNorm: 8665984 Inj 11/16/2015 11/16/2015 Inactive oxycodone 10 mg tablet RxNorm: 9525073 1 Tablet(s) PO Q6 as needed 10/11/2015 11/15/2015 Inactive levothyroxine 200 mcg tablet RxNorm: 113621 1 Tablet(s) PO daily 09/14/2015 03/11/2016 Inactive oxycodone 10 mg tablet RxNorm: 9810266 1 Tablet(s) PO Q6 as needed 08/10/2015 10/10/2015 Inactive Keflex 500 mg capsule RxNorm: 748243 1 Capsule(s) PO TID 201407/03/2015 Inactive Keflex 500 mg capsule RxNorm: 664584 1 Capsule(s) PO TID 201406/25/2015 Inactive oxycodone 10 mg tablet RxNorm: 7493847 1 Tablet(s) PO Q6 as needed 04/03/2015 08/09/2015 Inactive oxycodone 10 mg tablet RxNorm: 2525989 1 Tablet(s) PO Q6 as needed 02/14/2015 04/02/2015 Inactive Keflex 500 mg capsule RxNorm: 204864 1 Capsule(s) PO TID 201401/22/2015 Inactive Culturelle 10 billion cell capsule RxNorm: 642142 1 Capsule(s) PO daily 01/16/2015 02/14/2015 Inactive Dulcolax Stool Softener (docusate) 100 mg capsule RxNorm: 0303370 1 Capsule(s) PO daily 12/05/2014 02/11/2018 Inactive [SAVINGS FOR NON-COVERED DRUGS -- BIN:[id number], PCN: [id number], Group: XXXXX, ID# [id number], Questions: . THIS IS NOT INSURANCE.] Claritin 10 mg tablet RxNorm: 131618 1 Tablet(s) PO daily No Start Date Active Miralax 17 gram/dose oral powder RxNorm: 612529 17 Gram(s) PO QHS No Start Date Active multivitamin tablet RxNorm: 1 Tablet(s) PO daily No Start Date Active Colace 100 mg capsule RxNorm: 0968265 1 Capsule(s) PO BID No Start Date Active PreserVision AREDS oral RxNorm: 918578 oral No Start Date Active Restasis 0.05 % eye drops in a dropperette RxNorm: 272910 1 Drop(s) OPH BID No Start Date Active Vitamin D3 2,000 unit capsule RxNorm: 994787 1 Capsule(s) PO daily No Start Date 05/20/2018 Inactive minocycline 50 mg tablet RxNorm: 116423 1 Tablet(s) PO QHS No Start Date 01/20/2017 Inactive nadolol 20 mg tablet RxNorm: 048742 1 Tablet(s) PO daily No Start Date 11/05/2016 Inactive nadolol 20 mg tablet RxNorm: 596521 1 Tablet(s) PO daily No Start Date 11/05/2016 Inactive Ocuvite tablet RxNorm : 1 Tablet(s) PO BID No Start Date 05/20/2018 Inactive oxycodone 10 mg tablet RxNorm: 7564334 1 Tablet(s) PO Q6 as needed No Start Date 02/13/2015 Inactive Dulcolax Stool Softener (docusate) 100 mg capsule RxNorm: 6425105 1 Capsule(s) PO BID No Start Date 12/04/2014 Inactive Multivitamin 50 Plus tablet RxNorm: 1 Tablet(s) PO QAM No Start Date 02/11/2018 Inactive Finacea 15 % topical gel RxNorm: 8271903 TOP No Start Date 05/24/2018 Inactive Synthroid 200mcg Oral RxNorm: oral No Start Date 09/13/2015 Inactive spironolactone 50 mg tablet RxNorm: 105941 1 Tablet(s) PO daily No Start Date 12/17/2016 Inactive spironolactone 50 mg tablet RxNorm: 248402 1 Tablet(s) PO daily No Start Date 02/11/2018 Inactive Medication Administered Medication Codes Instructions Start Date Status Kenalog 40 mg/mL suspension for injection RxNorm: 7341911 1Milliliter 12/26/2017 No longer Active ceftriaxone 500 mg solution for injection RxNorm: 4338087 11/16/2015 No longer Active Kenalog 40 mg/mL suspension for injection RxNorm: 5832785 Milliliter 11/16/2015 No longer Active Immunizations Vaccine Codes Date Status Influenza CVX: 141 04/23/2018 completed Influenza CVX: 141 04/16/2017 completed Influenza CVX: 141 08/26/2016 completed Assessments Condition Codes Effective Dates Essential (primary) hypertension ICD-10: I10 ICD-9: 401.1 09/23/2018 Localized edema ICD-10: R60.0 ICD-9: 782.3 09/23/2018 Atrophy of thyroid (acquired) ICD-10: E03.4 ICD-9: 244.8 09/23/2018 Other ascites ICD-10: R18.8 ICD-9: 789.59 07/23/2018 Lymphedema, not elsewhere classified ICD-10: I89.0 ICD-9: 457.1 07/23/2018 Low back pain ICD-10: M54.5 ICD-9: 724.2 05/25/2018 Other chronic pain ICD-10: G89.29 ICD-9: 338.29 05/25/2018 Pain in left knee ICD-10: M25.562 ICD-9: 719.46 05/25/2018 Encounter for immunization ICD-10: Z23 ICD-9: V04.81 04/23/2018 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 ICD-9: 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.49 04/23/2018 Obstructive sleep apnea (adult) (pediatric) ICD-10: G47.33 ICD-9: 327.23 04/01/2018 Unsteadiness on feet ICD-10: R26.81 ICD-9: 781.2 03/18/2018 Pressure ulcer of left buttock, stage 1 ICD-10: L89.321 ICD-9: 707.05 03/09/2018 Acute bronchitis, unspecified ICD-10: J20.9 ICD-9: 466.0 12/26/2017 Cough ICD-10: R05 ICD-9: 786.2 12/26/2017 Other specified noninfective disorders of lymphatic [...] classified ICD-10: M25.641 ICD-9: 719.54 09/04/2017 Other skin changes ICD-10: R23.8 ICD-9: 709.8 08/08/2017 Other viral warts ICD-10: B07.8 ICD-9: 078.19 08/08/2017 Sick sinus syndrome ICD-10: I49.5 ICD-9: 427.81 04/16/2017 Other abnormal glucose ICD-10: R73.09 ICD-9: 790.29 01/21/2017 Other instability, left knee ICD-10: M25.362 ICD-9: 718.86 08/26/2016 Laceration without foreign body of left upper arm, subsequent encounter ICD-10: S41.112D ICD-9: V58.89 02/19/2016 Contusion of left lower leg, subsequent encounter ICD-10: S80.12XD ICD-9: V58.89 02/19/2016 Abrasion of scalp, subsequent encounter ICD-10: S00.01XD ICD-9: V58.89 02/19/2016 Abrasion of scalp, initial encounter ICD-10: S00.01XA ICD-9: 910.1 02/08/2016 Contusion of left lower leg, initial encounter ICD-10: S80.12XA ICD-9: 924.10 02/08/2016 Hypothyroidism, unspecified ICD-10: E03.9 ICD-9: 244.9 02/08/2016 Laceration without foreign body of left upper arm, initial encounter ICD-10: S41.112A ICD-9: 880.03 02/08/2016 Allergic rhinitis due to pollen ICD-10: J30.1 ICD-9: 477.0 11/16/2015 Acute upper respiratory infection, unspecified ICD-10: J06.9 ICD-9: 465.9 11/16/2015 Contusion of left lower leg, initial encounter ICD-10: S80.12XA ICD-9: 924.5 06/19/2015 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 04/03/2015 CELLULITIS ICD-9: 682.9 04/03/2015 HYPOTHYROIDISM ICD-9: 244.9 04/03/2015 Lymphedema ICD-9: 457.1 02/27/2015 Rosacea, acne ICD-9: 695.3 02/27/2015 Right leg swelling ICD-9: 729.81 2014 CELLULITIS OF LEG ICD-9: 682.6 2014 Sacroiliitis ICD-9: 720.2 12/05/2014 Chronic pain ICD-9: 338.29 12/05/2014 Back pain ICD-9: 724.5 12/05/2014 Dysphagia ICD-9: 787.20 12/05/2014 Reason For Visit Reason For Visit Effective Dates Notes hypertension 09/23/2018 cough 09/14/2018 cough 07/23/2018 cough [...] Item Item Code Result Date Free T4 Apb958 FREE T4 1.92 ng/dL 04/24/2018 Tsh Ord6 [...] 31.1 pg 04/24/2018 Cbc With Differential Ord2 [place]% 13.0 % 04/24/2018 Cbc With Differential Ord2 Eos% 0.3 % 04/24/2018 Cbc With Differential Ord2 MCHC 33.3 pg 04/24/2018 Cbc With Differential Ord2 PLT 55 K/ul 04/24/2018 Cbc With Differential Ord2 Baso% 0.0 % 04/24/2018 Cbc With Differential Ord2 RDW 15.3 % 04/24/2018 Cbc With Differential Ord2 Neut ABS# 1.67 K/ul 04/24/2018 Cbc With Differential Ord2 Lymph ABS# 1.00 K/ul 04/24/2018 Cbc With Differential Ord2 [place] ABS# 0.4 K/ul 04/24/2018 Cbc With Differential Ord2 Eos ABS# 0.0 K/ul 04/24/2018 Cbc With Differential Ord2 Baso ABS# 0.0 K/ul 04/24/2018 Comp Metabolic Hgp337 NA 138 mEq/L 04/24/2018 Comp Metabolic Acm868 K 3.9 mEq/L 04/24/2018 Comp Metabolic Ild330 CL 97 mEq/L 04/24/2018 Comp Metabolic Ldc936 CO2 32.0 mEq/L 04/24/2018 Comp Metabolic Sch381 ANION GAP 13 04/24/2018 Comp Metabolic Ynb518 GLUCOSE 194 mg/dL 04/24/2018 Comp Metabolic Zwf305 Creat 0.8 mg/dL 04/24/2018 Comp Metabolic Gam423 eGFR 70 ml/min/1.73m2 04/24/2018 Comp Metabolic Aij578 BUN 20 mg/dL 04/24/2018 Comp Metabolic Ckn335 B/C Ratio 24.1 Ratio 04/24/2018 Comp Metabolic Jwo762 CALCIUM 9.4 mg/dL 04/24/2018 Comp Metabolic Khz630 ALK PHOS 110 U/L 04/24/2018 Comp Metabolic Kge630 AST(SGOT) 33 U/L 04/24/2018 Comp Metabolic Knq420 ALT(SGPT) 16 U/L 04/24/2018 Comp Metabolic Hja426 BILI T 1.8 mg/dL 04/24/2018 Comp Metabolic Adh795 ALBUMIN 4.0 g/dL 04/24/2018 Comp Metabolic Ekp887 TPRO 5.7 g/dL 04/24/2018 Comp Metabolic Byy014 GLOB 1.7 g/dL 04/24/2018 Comp Metabolic Mnt796 A/G Ratio 2.3 Ratio 04/24/2018 Comp Metabolic Wve624 Osmo 284 mOsmo 04/24/2018 Tsh Ord6 TSH (3rd IS) 0.07 uIU/mL 02/13/2018 Free T4 Iwm020 FREE T4 1.85 ng/dL 02/13/2018 %Hba1C Sqt417 % HbA1c 88685-8 5.9 % 01/21/2017 %Hba1C Foo404 Gluc Ave 123 mg/dL 01/21/2017 Comp Metabolic Hnp974 NA 136 mEq/L 01/21/2017 Comp Metabolic Tqk154 K 4.3 mEq/L 01/21/2017 Comp Metabolic Mhh844 CL 99 mEq/L 01/21/2017 Comp Metabolic Anx392 CO2 30.0 mEq/L 01/21/2017 Comp Metabolic Rwn090 ANION GAP 11 01/21/2017 Comp Metabolic Msd896 GLUCOSE 234 mg/dL 01/21/2017 Comp Metabolic Xyc964 Creat 0.5 mg/dL 01/21/2017 Comp Metabolic Icl724 eGFR 115 ml/min/1.73m2 01/21/2017 Comp Metabolic Nez226 BUN 10 mg/dL 01/21/2017 Comp Metabolic Bel414 B/C Ratio 18.5 Ratio 01/21/2017 Comp Metabolic Qdf212 CALCIUM 8.8 mg/dL 01/21/2017 Comp Metabolic Sdq305 ALK PHOS 74 U/L 01/21/2017 Comp Metabolic Uan818 AST(SGOT) 28 U/L 01/21/2017 Comp Metabolic Azy994 ALT(SGPT) 15 U/L 01/21/2017 Comp Metabolic Esm318 BILI T 1.1 mg/dL 01/21/2017 Comp Metabolic Jzn061 ALBUMIN 3.8 g/dL 01/21/2017 Comp Metabolic Jpa548 TPRO 5.8 g/dL 01/21/2017 Comp Metabolic Zze716 GLOB 2.0 g/dL 01/21/2017 Comp Metabolic Jde876 A/G Ratio 1.9 Ratio 01/21/2017 Comp Metabolic Qej131 Osmo 279 mOsmo 01/21/2017 Tsh Ord6 hTSH II 0.80 uIU/mL 04/03/2015 Bili D Ord93 BILI D 0.1 mg/dL 04/03/2015 Bili D Ord93 BILI I 0.9 mg/dL 04/03/2015 Free T4 Gic288 FREE T4 1.27 ng/dL 04/03/2015 Cbc With [...] Ord2 RDW 15.6 % 04/03/2015 Comp Metabolic Ktm584 NA 136 mEq/L 04/03/2015 Comp Metabolic Ujl552 K 4.3 mEq/L 04/03/2015 Comp Metabolic Ucp873 CL 99 mEq/L 04/03/2015 Comp Metabolic Pgn689 CO2 29.0 mEq/L 04/03/2015 Comp Metabolic Hjt711 ANION GAP 12 04/03/2015 Comp Metabolic Dck040 GLUCOSE 120 mg/dL 04/03/2015 Comp Metabolic Fiv234 Creat 0.5 mg/dL 04/03/2015 Comp Metabolic Bgh281 eGFR 118 ml/min/1.73m2 04/03/2015 Comp Metabolic Zsd326 BUN 11 mg/dL 04/03/2015 Comp Metabolic Hdp892 B/C Ratio 20.8 Ratio 04/03/2015 Comp Metabolic Gcx014 CALCIUM 9.3 mg/dL 04/03/2015 Comp Metabolic Fxd710 ALK PHOS 61 U/L 04/03/2015 Comp Metabolic Idw338 AST(SGOT) 28 U/L 04/03/2015 Comp Metabolic Yyx360 ALT(SGPT) 16 U/L 04/03/2015 Comp Metabolic Gxl151 BILI T 1.0 mg/dL 04/03/2015 Comp Metabolic Wsa755 ALBUMIN 4.1 g/dL 04/03/2015 Comp Metabolic Fyf236 TPRO 6.1 g/dL 04/03/2015 Comp Metabolic Mmw450 GLOB 2.0 g/dL 04/03/2015 Comp Metabolic Uya875 A/G Ratio 2.1 Ratio 04/03/2015 Comp Metabolic Nzp537 Osmo 273 mOsmo 04/03/2015 Review of Systems System Result Effective Dates Constitutional recent illness 09/23/2018 Constitutional No chills [...] sounds 03/09/2018 None Full Exam - General 1995 Musculoskeletal lower extremity Palpation - knee: crepitus [...] 1994 Eyes conjunctiva /eyelids Overall: eyelids normal 09/04/2017 [...] dentition 09/04/2017 None Full Exam - General 1994 Ears/Nose/Throat oral cavity/pharynx/larynx Overall: oral mucosa clear 09/04/2017 None Full Exam - General 1994 Respiratory auscultation Overall: breath sounds clear bilaterally 09/04/2017 None Full Exam - General 1995 Respiratory respiratory effort/rhythm Overall: no retractions 09/04/2017 None Full Exam - General 1994 Respiratory respiratory effort/rhythm Overall: normal rate 09/04/2017 None Full Exam - General 1995 Cardiovascular auscultation of heart Rate: regular rate 09/04/2017 None Full Exam - General 1995 Cardiovascular auscultation of heart Murmur: previously known murmur unchanged 09/04/2017 None Full Exam - General 1995 Cardiovascular auscultation of heart Systolic murmur: holosystolic 09/04/2017 None Full Exam - General 1994 Cardiovascular auscultation of heart Systolic murmur grade: III/ 09/04/2017 None Full Exam - General 1995 Integument inspection of skin Dermatitis: scaling 09/04/2017 None Full Exam - General 1995 Integument inspection of skin Dermatitis: thickened 09/04/2017 [...] FLU VACC PRSV FREE INC ANTIG CPT-4: 70952 04/23/2018 TRIAMCINOLONE ACET INJ NOS CPT-4: J3301 12/26/2017 ADMIN INFLUENZA VIRUS VAC CPT-4: G0008 04/16/2017 FLU VACC PRSV FREE INC ANTIG CPT-4: 84144 04/16/2017 TRIAMCINOLONE ACET INJ NOS CPT-4: J3301 11/16/2015 ROCEPHIN, PER 250 MG CPT-4: J0696 11/16/2015 Vital Signs Date Vital 09/23/2018 Blood Pressure 1: 120/60 Code : [...] Code : 8480-6 BMI: 23.6 Code : 50154-3 Heart Rate 1 : 59 bpm Height: 5'1" Respiratory Rate: 18 bpm SpO2: 99% Temperature: 37.0 (C) / 98.6 (F ) Weight: 125 lbs 04/23/2018 Blood Pressure 2: 118/62 Code : 8480-6 BMI: 22.3 Code : 61454-9 Heart Rate 1 : 73 bpm Height: 5'1" SpO2: 97% Weight: 118 lbs 04/01/2018 Blood Pressure 1: 136/72 Code : 8480-6 BMI: 26.6 Code : 08188-4 Heart Rate 1 : 75 bpm Height: 5'1" SpO2: 98% Weight: 141 lbs 03/18/2018 Blood Pressure 1: 132/62 Code : 8480-6 Heart Rate 1: 61 bpm Height: 5'1" SpO2: 96% Weight: 03/09/2018 Blood Pressure 1: 122/60 Code : 8480-6 Heart Rate 1: 65 bpm Height: 5'1" SpO2: 98% Weight: 02/12/2018 Blood Pressure 1: 100/68 Code : 8480-6 BMI: 24.3 Code : 48502-5 Heart Rate 1 : 68 bpm Height: 5'1" SpO2: 96% Weight: 128 lbs 13 oz 12/26/2017 Blood Pressure 1: 126/68 Code : 8480-6 BMI: 26.7 Code : 28145-4 Heart Rate 1 : 66 bpm Height: 5'1" SpO2: 98% Temperature: 36.8 (C) / 98.2 (F) Weight: 141 lbs 8 oz 12/04/2017 Blood Pressure 1: 132/76 Code : 8480-6 BMI: 26.5 Code : 30106-9 Heart Rate 1 : 73 bpm Height: 5'1" SpO2: 96% Weight: 140 lbs 11/13/2017 Blood Pressure 1: 126/62 Code : 8480-6 Heart Rate 1: 69 bpm Height: 5'1" SpO2: 96% Weight: 11/06/2017 Blood Pressure 1: 142/84 Code : 8480-6 BMI: 25.7 Code : 55562-1 Heart Rate 1 : 78 bpm Height: 5'1" SpO2: 95% Temperature: 36.9 (C) / 98.5 (F) Weight: 136 lbs 10/29/2017 Blood Pressure 1: 132/68 Code : 8480-6 BMI: 26.8 Code : 86882-1 Heart Rate 1 : 70 bpm Height: 5'1" SpO2: 98% Weight: 142 lbs 09/04/2017 Blood Pressure 1: 132/74 Code : 8480-6 BMI: 25.9 Code : 11856-1 Heart Rate 1 : 68 bpm Height: 5'1" SpO2: 96% Weight: 137 lbs 08/08/2017 Blood Pressure 1: 118/72 Code : 8480-6 BMI: 26.6 Code : 62656-5 Heart Rate 1 : 68 bpm Height: 5'1" SpO2: 95% Weight: 141 lbs 05/29/2017 Blood Pressure 1: 142/78 Code : 8480-6 BMI: 26.3 Code : 39915-8 Heart Rate 1 : 65 bpm Height: 5'1" SpO2: 95% Weight: 139 lbs 04/16/2017 Blood Pressure 1: 136/62 Code : 8480-6 BMI: 27.4 Code : 77216-6 Heart Rate 1 : 38 bpm Height: 5'1" SpO2: 98% Weight: 145 lbs 02/10/2017 Blood Pressure 1: 124/70 Code : 8480-6 BMI: 27.4 Code : 74810-0 Heart Rate 1 : 70 bpm Height: 5'1" SpO2: 96% Weight: 145 lbs 01/21/2017 Blood Pressure 1: 120/70 Code : 8480-6 BMI: 27.2 Code : 53597-8 Heart Rate 1 : 65 bpm Height: 5'1" SpO2: 95% Weight: 144 lbs 12/18/2016 Blood Pressure 1: 122/74 Code : 8480-6 BMI: 27.4 Code : 22201-9 Heart Rate 1 : 66 bpm Height: 5'1" SpO2: 97% Weight: 145 lbs 08/26/2016 Blood Pressure 1: 110/64 Code : 8480-6 BMI: 28.0 Code : 97186-2 Heart Rate 1 : 67 bpm Height: 5'1" SpO2: 97% Weight: 148 lbs 02/27/2016 Blood Pressure 1: 126/74 Code : 8480-6 Heart Rate 1: 67 bpm Height: 5'1" SpO2: 97% 02/19/2016 Blood Pressure 1: 130/80 Code : 8480-6 BMI: 28.2 Code : 36172-3 Heart Rate 1 : 74 bpm Height: 5'1" SpO2: 96% Weight: 149 lbs 02/08/2016 Blood Pressure 1: 122/78 Code : 8480-6 BMI: 28.2 Code : 33927-3 Heart Rate 1 : 63 bpm Height: 5'1" SpO2: 96% Weight: 149 lbs 11/16/2015 Blood Pressure 1: 128/70 Code : 8480-6 BMI: 27.8 Code : 60000-9 Heart Rate 1 : 64 bpm Height: 5'1" SpO2: 97% Weight: 147 lbs 07/18/2015 Blood Pressure 1: 110/60 Code : 8480-6 BMI: 28.5 Code : 38826-8 Heart Rate 1 : 61 bpm Height: 5'1" SpO2: 97% Weight: 151 lbs 06/27/2015 Blood Pressure 1: 122/60 Code : 8480-6 BMI: 28.9 Code : 52603-4 Heart Rate 1 : 63 bpm Height: 5'1" SpO2: 95% Weight: 153 lbs 06/19/2015 Blood Pressure 1: 120/78 Code : 8480-6 Heart Rate 1: 68 bpm SpO2: 96% Weight: 154 lbs 04/03/2015 Blood Pressure 1: 128/68 Code : 8480-6 BMI: 29.1 Code : 17668-5 Heart Rate 1 : 70 bpm Height: 5'1" SpO2: 97% Weight: 154 lbs 02/27/2015 Blood Pressure 1: 122/84 Code : 8480-6 BMI: 29.5 Code : 58641-7 Heart Rate 1 : 67 bpm Height: 5'1" SpO2: 95% Weight: 156 lbs 01/26/2015 Blood Pressure 1: 132/70 Code : 8480-6 BMI: 30.2 Code : 40173-4 Heart Rate 1 : 76 bpm Height: 5'1" Weight: 160 lbs 01/16/2015 Blood Pressure 1: 140/70 Code : 8480-6 BMI: 30.0 Code : 70560-5 Heart Rate 1 : 78 bpm Height: 5'1" Respiratory Rate: 20 bpm Weight: 159 lbs 12/05/2014 Blood Pressure 1: 138/78 Code : 8480-6 BMI: 30.8 Code : 70527-6 Heart Rate 1 : 76 bpm Height: 5'1" Weight: 163 lbs Functional Status No Functional Status data History of Present Illness Symptom Name Status Result Effective Date Notes Quality chronic 09/23 None Quality primary hypertension 09/23/2018 None Onset and Resolution ongoing 09/23/2018 None Onset of Symptom during adulthood 09/23/2018 None Alleviating Factors medication 09/23/2018 None Quality stable 2018 None Blood Pressure Values patient checking blood pressure at home - did not bring in readings 2018 -Checked at [facility] Pertinent Findings edema 09/23/2018 None Quality [...] ill contacts 07/23/2018 she is in a residential [employer] recumbent position 07/23/2018 None Pertinent Findings [...] ill contacts 07/07/2018 she is in a residential [employer] recumbent position 07/07/2018 None Hospital Follow [...] data Encounters Encounter Performer Location Codes Date [id number]) 26596 EST. PATIENT, LEVEL IV Diagnosis: Essential (primary) hypertension[ICD10: I10] Diagnosis: Localized edema[ICD10: R60.0] Diagnosis: Atrophy of thyroid (acquired)[ICD10: E03.4] Alexandria Barron MD, [facility] CPT-4: 07270 09/23/2018 03279 EST. PATIENT, LEVEL III Diagnosis: Essential (primary) hypertension[ICD10: I10] Diagnosis: Localized edema[ICD10: R60.0] Светлана Barron MD, [facility] CPT-4 : 97426 09/14/2018 ([id number]) 79706 EST. PATIENT, LEVEL IV Diagnosis: Essential (primary) hypertension[ICD10: I10] Diagnosis: Lymphedema, not elsewhere classified[ICD10: I89.0] Diagnosis: Other ascites[ICD10: R18.8] Alexandria Barron MD, [facility] CPT- 4: 79351 07/23/2018 ([id number]) 36137 EST. PATIENT, LEVEL IV Diagnosis: Essential (primary) hypertension[ICD10: I10] Diagnosis: Atrophy of thyroid (acquired)[ICD10: E03.4] Diagnosis: Lymphedema, not elsewhere classified[ICD10: I89.0] [facility] CPT-4: 76336 07/07/2018 [id number]) 19766 EST. PATIENT, LEVEL IV Diagnosis: Essential (primary) hypertension[ICD10: I10] Diagnosis: Localized edema[ICD10: R60.0] [facility] CPT- 4: 60472 06/22/2018 ([id number]) 60150 EST. PATIENT, LEVEL IV Diagnosis: Atrophy of thyroid (acquired)[ICD10: E03.4] Diagnosis: Essential (primary) hypertension[ICD10: I10] Diagnosis: Other chronic pain[ICD10: G89.29] Diagnosis: Pain in left knee[ICD10: M25.562] Diagnosis: Low back pain[ICD10: M54.5] [facility] CPT- 4: 70873 05/25/2018 ([id number]) 67805 EST. 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 PATIENT, LEVEL IV Diagnosis: Essential (primary) hypertension[ICD10: I10] Diagnosis: Low back pain[ICD10: M54.5] Diagnosis: Localized edema[ICD10: R60.0] Diagnosis: Other chronic pain[ICD10: G89.29] Diagnosis: Obstructive sleep apnea (adult) (pediatric)[ICD10: G47.33] [facility] CPT-4: 72974 04/01/2018 ([id number]) 09802 EST. PATIENT, LEVEL IV Diagnosis: Essential (primary) hypertension[ICD10: I10] Diagnosis: Other chronic pain[ICD10: G89.29] Diagnosis: Unsteadiness on feet[ICD10: R26.81] Alexandria Barron MD, [facility] CPT-4: 02809 03/18/2018 ([id number]) 74345 EST. PATIENT, LEVEL IV Diagnosis: Low back pain[ICD10: M54.5] Diagnosis: Localized edema[ICD10: R60.0] Diagnosis: Essential (primary) hypertension[ICD10: I10] Diagnosis: Other chronic pain[ICD10: G89.29] Diagnosis: Pressure ulcer of left buttock, stage 1[ICD10: L89.321] Diagnosis: Obstructive sleep apnea (adult) (pediatric)[ICD10: G47.33] Alexandria Barron MD , [facility] CPT-4: 69370 03/09/2018 ([id number]) 32801 EST. PATIENT, LEVEL IV Diagnosis: Atrophy of thyroid (acquired)[ICD10: E03.4] Diagnosis: Essential (primary) hypertension[ICD10: I10] Diagnosis: Localized edema[ICD10: R60.0] Diagnosis: Other chronic pain[ICD10: G89.29] Alexandria Barron MD, [facility] CPT-4: 54727 02/12/2018 ([id number]) 55180 EST. PATIENT, LEVEL III Diagnosis: Cough[ICD10: R05] Diagnosis: Acute bronchitis, unspecified[ICD10: J20.9] Sandra Barron MD, [facility] CPT-4: 14060 12/26/2017 ([id number]) 76644 EST. PATIENT, LEVEL IV Diagnosis: Essential (primary) hypertension[ICD10: I10] Diagnosis: Other specified noninfective disorders of lymphatic vessels and lymph nodes[ICD10: I89.8] Diagnosis: Atrophy of thyroid (acquired)[ICD10: E03.4] Alexandria Barron MD, [facility] CPT-4: 95541 12/04/2017 88728 EST. PATIENT, LEVEL III Diagnosis: Candidiasis of skin and nail[ICD10: B37.2] Светлана Barron MD, [facility] CPT-4: 47257 11/13/2017 ([id number]) 29141 EST. PATIENT, LEVEL III Diagnosis: Lymphedema, not elsewhere classified[ICD10: I89.0] Diagnosis: Low back pain[ICD10: M54.5] Diagnosis: Localized edema[ICD10: R60.0] Alexandria Barron MD, [facility] CPT- 4: 50265 11/06/2017 ([id number]) Miscellaneous no charge Diagnosis: Localized edema[ICD10: R60.0] Diagnosis: Cellulitis of right lower limb[ICD10: L03.115] Diagnosis: Cellulitis of left lower limb[ICD10: L03.116] Светлана Barron MD, [facility] CPT-4: 53462 11/03/2017 53118 EST. PATIENT, LEVEL III Diagnosis: Cellulitis of left lower limb[ICD10: L03.116] Diagnosis: Localized edema[ICD10: R60.0] Светлана Barron MD, [facility] CPT-4 : 31089 10/29/2017 ([id number]) 23158 EST. PATIENT, LEVEL IV Diagnosis: Essential (primary) hypertension[ICD10: I10] Diagnosis: Atrophy of thyroid (acquired)[ICD10: E03.4] Diagnosis: Pain in left knee[ICD10: M25.562] Diagnosis: Stiffness of left hand, not elsewhere classified[ICD10: M25.642] Diagnosis: Stiffness of right hand, not elsewhere classified[ICD10: M25.641] Alexandria Barron MD, [facility] CPT-4: 49496 09/04/2017 ([id number]) 49870 EST. PATIENT, LEVEL III Diagnosis: Other viral warts[ICD10: B07.8] Diagnosis: Other skin changes[ICD10: R23.8] Alexandria Barron MD, [facility] CPT-4: 71277 08/08/2017 ([id number]) 16720 EST. PATIENT, LEVEL IV Diagnosis: Essential (primary) hypertension[ICD10: I10] Diagnosis: Atrophy of thyroid (acquired)[ICD10: E03.4] Diagnosis: Low back pain[ICD10: M54.5] Alexandria Barron MD, [facility] CPT- 4: 47196 05/29/2017 ([id number]) 62004 EST. PATIENT, LEVEL IV Diagnosis: Essential (primary) hypertension[ICD10: I10] Diagnosis: Atrophy of thyroid (acquired)[ICD10: E03.4] Diagnosis: Encounter for immunization[ICD10: Z23] Diagnosis: Sick sinus syndrome[ICD10: I49.5] Alexandria Barron MD, [facility] CPT-4: 36431 04/16/2017 ([id number]) Miscellaneous no charge Diagnosis: Cellulitis of left lower limb[ICD10: L03.116] Светлана Barron MD, [facility] CPT-4: 08772 02/24/2017 91058 EST. PATIENT, LEVEL III Diagnosis: Cellulitis of left lower limb[ICD10: L03.116] Diagnosis: Cellulitis of right lower limb[ICD10: L03.115] Светлана Barron MD, [facility] CPT-4: 22601 02/10/2017 ([id number]) 36180 EST. PATIENT, LEVEL IV Diagnosis: Essential (primary) hypertension[ICD10: I10] Diagnosis: Other abnormal glucose[ICD10: R73.09] Diagnosis: Localized edema[ICD10: R60.0] Alexandria Barron MD, [facility] CPT- 4: 57649 01/21/2017 99283 EST. PATIENT, LEVEL IV Diagnosis: Essential (primary) hypertension[ICD10: I10] Diagnosis: Pain in left knee[ICD10: M25.562] Diagnosis: Atrophy of thyroid (acquired)[ICD10: E03.4] Alexandria Barron MD, [facility] CPT-4: 89406 12/18/2016 ([id number]) 25278 EST. PATIENT, LEVEL IV Diagnosis: Essential (primary) hypertension[ICD10: I10] Diagnosis: Pain in left knee[ICD10: M25.562] Diagnosis: Other instability, left knee[ICD10: M25.362] Diagnosis: Other chronic pain[ICD10: G89.29] Alexandria Barron MD, [facility] CPT-4: 95615 08/26/2016 ([id number]) 40771 EST. PATIENT, LEVEL III Diagnosis: Localized edema[ICD10: R60.0] Sandra Barron MD, [facility] CPT-4: 78634 02/27/2016 ([id number]) Miscellaneous no charge Diagnosis: Lymphedema, not elsewhere classified[ICD10: I89.0] Sandra Barron MD, [facility] CPT-4: 96195 02/20/2016 ([id number] 99445 EST. PATIENT, LEVEL III Diagnosis: Contusion of left lower leg, subsequent encounter[ICD10: S80.12XD] Diagnosis: Abrasion of scalp, subsequent encounter[ICD10: S00.01XD] Diagnosis: Laceration without foreign body of left upper arm, subsequent encounter[ICD10: S41.112D] Diagnosis: Localized edema[ICD10: R60.0] Sandra Barron MD, [facility] CPT-4: 45236 02/19/2016 ([id number]) Miscellaneous no charge Diagnosis: Laceration without foreign body of left upper arm, subsequent encounter[ICD10: S41.112D] Diagnosis: Abrasion of scalp, subsequent encounter[ICD10: S00.01XD] Sandra Barron MD , [facility] CPT-4: 46899 02/12/2016 ([id number]) 00230 EST. PATIENT, LEVEL IV Diagnosis: Contusion of left lower leg, initial encounter[ICD10: S80.12XA] Diagnosis: Abrasion of scalp, initial encounter[ICD10: S00.01XA] Diagnosis: Laceration without foreign body of left upper arm, initial encounter[ ICD10: S41.112A] Diagnosis: Localized edema[ICD10: R60.0] Diagnosis: Hypothyroidism, unspecified[ICD10: E03.9] Diagnosis: Essential (primary) hypertension[ICD10: I10] Alexandria Barron MD, [facility] CPT-4: 86890 02/08/2016 ([id number]) 83524 EST. PATIENT, LEVEL IV Diagnosis: Cough[ICD10: R05] Diagnosis: Low back pain[ICD10: M54.5] Diagnosis: Allergic rhinitis due to pollen[ICD10: J30.1] Diagnosis: Acute upper respiratory infection, unspecified[ICD10: J06.9] Diagnosis: Acute bronchitis, unspecified[ICD10: J20.9] Sandra Barron MD, [facility] CPT-4: 00605 11/16/2015 ([id number]) 82427 EST. PATIENT, LEVEL IV Diagnosis: Hypothyroidism, unspecified[ICD10: E03.9] Diagnosis: Lymphedema, not elsewhere classified[ICD10: I89.0] Alexandria Barron MD, [facility] CPT-4: 84693 07/18/2015 44724 EST. PATIENT, LEVEL IV Diagnosis: Contusion of left lower leg, subsequent encounter[ICD10: S80.12XD] Diagnosis: Cellulitis of left lower limb[ICD10: L03.116] Светлана Barron MD, [facility] CPT-4: 53316 06/27/2015 25662 EST. PATIENT, LEVEL III Diagnosis: Contusion of left lower leg, initial encounter[ICD10: S80.12XA] Diagnosis: Cellulitis of left lower limb[ICD10: L03.116] Светлана Barron MD, [facility] CPT-4: 15792 06/19/2015 ([id number]) 33005 EST. 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 PATIENT, LEVEL III Diagnosis: Rosacea, acne[ICD9: 695.3] Diagnosis: Lymphedema[ICD9: 457.1] Sandra Barron MD, [facility] CPT-4: 14158 02/27/2015 ([id number]) 05179 EST. PATIENT, LEVEL III Diagnosis: Right leg swelling[ICD9: 729.81] Alexandria Barron MD, [facility] CPT-4: 49172 01/26/2015 ([id number]) 72183 EST. PATIENT, LEVEL III Diagnosis: CELLULITIS OF LEG[ICD9: 682.6] Mary Ann Barron MD, [facility] CPT-4 : 52764 01/16/2015 ([id number]) OFFICE VISIT, NEW - LEVEL 4 Diagnosis: Back pain[ICD9: 724.5] Diagnosis: Lymphedema[ICD9: 457.1] Diagnosis: Sacroiliitis[ICD9: 720.2] Diagnosis: Chronic pain[ICD9: 338.29] Diagnosis: HYPOTHYROIDISM[ICD9: 244.9] Diagnosis: Dysphagia[ICD9: 787.20] [facility] CPT-4: 54362 12/05/2014 Plan of Care Planned Activity Notes [...] compression wraps. 09/23/2018 App[facility]ment[phone] (15 min) Moderate 09/23/2018 Patient [...] concerns. 09/14/2018 Appointment: [facility]ана [phone] (30 min) Complex 09/14/2018 Patient Education: Patient [...] compression 07/23/2018 Appointment: Alexandria Barron WPtel: [phone] [facility] (15 min) Moderate 07/23/2018 Patient Education: Patient [...] seated. 07/07/2018 Appointment: Alexandria Barron WPtel: [phone] [facility] (15 min) Moderate 07/07/2018 Patient [...] peripheral edema. 06/22/2018 Appointment: Alexandria Barron WPtel: [facility] [place] (15 min) Moderate 06/22/2018 Patient Education: Patient Medication Summary Completed 06/22/2018 Appointment: Alexandria Barron WPtel: [phone] [facility] [place] (15 min) Moderate 05/27/2018 Visit Plan: [...] over-medication. 05/25/2018 Appointment: [facility]el[phone] [facility] (15 min) Moderate 05/25/2018 Patient Education: Patient Medication Summary Completed 05/25/2018 Patient Education: Back Pain Completed 05/25/2018 Appointment: [facility]лана Garcia [phone] (30 min) Complex 05/15/2018 Visit Plan: Hypertension [...] in clinic. 04/23/2018 Appointment: Alexandria Barron WPtel: [facility] (15 min) Moderate 04/23/2018 Patient Education: Patient [...] pt request. 04/01/2018 Appointment: [facility]el[phone] (15 min) Moderate 04/01/2018 Patient Education: Patient [...] goes well. 03/18/2018 Appointment: Alexandria Barron WPtel: [address] [place], [place] [id number] (15 min) Moderate 03/18/2018 Patient Education: Patient [...] on buttock. 03/09/2018 Appointment: Alexandria Barron WPtel: [address] [place] [address] (15 min) Moderate 03/09/2018 Patient Education: Patient [...] her report. 02/12/2018 Appointment: Alexandria Barron WPtel: [facility] (15 min) Moderate 02/12/2018 Patient Education: Patient Medication Summary Completed 02/12/2018 Visit Plan: Bronchitis- Pt advised to increase fluids, vitamin C. Discussed natural and expected course of this diagnosis and need to alert me if symptoms do not follow expected course, or if any worse. RX sent to patient's pharmacy. 12/26/2017 Appointment: Sandra Mcdonald WPtel: [phone] [place] (15 min) Moderate 12/26/2017 Patient [...] when seated. 12/04/2017 Appointment: Alexandria Barron WPtel: [facility] (30 min) Complex 12/04/2017 Patient Education: Patient Medication Summary Completed 12/04/2017 Visit Plan: Yeast rash - The patient was instructed in appropriate care. The patient was instructed to use the ointment as per RX. The patient is to call for any change in symptoms, increase in size of the lesion, increase in pain, worsening redness, warmth, discharge. 11/13/2017 Appointment: Светлана Garcia WPtel: [facility] (30 min) Complex 11/13/2017 Patient Education: [...] care. 11/06/2017 Appointment: Alexandria Barron WPtel: [phone] [facility] (30 min) Complex 11/06/2017 Patient [...] peripheral edema. 10/29/2017 Appointment: Светлана Garcia WPtel: [phone] [facility] (15 min) Moderate 10/29/2017 Patient Education: Patient [...] sample 09/04/2017 Appointment: Alexandria Barron WPtel: [phone] [facility] (15 min) Moderate 09/04/2017 Patient Education: Patient Medication Summary Completed 09/04/2017 Appointment: Светлана Garcia WPtel: [phone] [facility] (15 min) Moderate 08/18/2017 Visit Plan: Skin lesion on face - lesion removed with scalpel and dressed with medihoney, pt to RTC in 10 days for treatment of the lesion if not fully resolved. 08/08/2017 Appointment: Alexandria Barron WPtel: [phone] [facility] (30 min) Complex 08/08/2017 Patient Education: Patient [...] over- medication. 05/29/2017 Appointment: [facility]Ptel[phone] [place] (15 min) Moderate 05/29/2017 Patient Education: Patient Medication Summary Completed 05/29/2017 Appointment: Alexandria Barron WPtel: [phone] [facility] [place] (15 min) Moderate 04/30/2017 [facility]: [facility] Wilks [facility] [facility] Patient informed. Referral info faxed. Completed 04/28/2017 [...] of control. 04/16/2017 Appointment: Alexandria Barron WPtel: [facility] (15 min) Moderate 04/16/2017 Patient Education: Patient Medication Summary Completed 04/16/2017 Care Plan: Referral Order SNOMED-CT : [id number] Pending 04/16/2017 Visit Plan: Wound healed - no further treatment at this time. 02/24/2017 Appointment: Nurse Visit 02/24/2017 Patient Education: Patient Medication Summary Completed 02/24/2017 Appointment: Nurse Visit 02/18/2017 Appointment: Светлана Garcia WPtel: [facility] (30 min) Complex 02/14/2017 Visit Plan: Cellulitis - The patient was instructed in appropriate wound care. The patient was instructed to use the antibiotic as per RX. The patient is to call for any change in symptoms, increase in size of the lesion, increase in pain, worsening redness, warmth, discharge. 02/10/2017 Appointment: Светлана Garcia WPtel: [facility] (30 min) Complex 02/10/2017 Patient Education: Patient [...] chocolate intake. 01/21/2017 Appointment: Alexandria Barron WPtel: [phone] [facility] [place] (15 min) Moderate 01/21/2017 Patient Education: [...] not improving. 12/18/2016 Appointment: Alexandria Bar[facility] WPtel: [facility] [facility] (15 min) Moderate 12/18/2016 Patient Education: Patient [...] specialist 08/26/2016 Appointment: Alexandria Bar[facility] WPtel: [phone] [place] (15 min) Moderate 08/26/2016 Patient Education: Patient Medication Summary Completed 08/26/2016 Care Plan: Referral Order SNOMED-CT : [id number] Pending 08/26/2016 Appointment: Sandra Mcdonald WPtel: [facility] [place] (30 min) Complex 03/11/2016 Visit Plan: Edema - improved-pt has been advised to elevate legs to prevent dependent edema, compression has been recommended to help to naturally decrease peripheral edema. Diuretic use has been discussed and pt has been instructed in appropriate use of such medication as necessary to further attempt to reduce peripheral edema. 02/27/2016 Appointment: Sandra Mcdonald WPtel: [phone] [phone] (30 min) Complex 02/27/2016 Patient Education: Patient Medication Summary Completed 02/27/2016 Appointment: Nurse Visit 02/20/2016 Patient Education: Patient Medication Summary Completed 02/20/2016 Visit Plan: Abrasion of scalp-healing well-continue wound care as directed Laceration left arm-healing well-continue wound care-may leave open to air Contusion of left sdg-zxlsdrmqe-bwgwibkj to monitor Edema-elevate legs-follow up tomorrow for quick check of swelling 02/19/2016 Appointment: [facility]cdonald [facility]Ptel[phone] (15 min) Moderate 02/19/2016 Patient Education: Patient [...] peripheral edema. 02/08/2016 Appointment: Alexandria Barron WPtel: 1012 [facility] (15 min) Moderate 02/08/2016 Patient Education: Patient [...] swelling. 07/18/2015 Appointment: Alexandria Barron WPtel: [phone] [facility] (15 min) Moderate 07/18/2015 Patient Education: Patient [...] not improving. 04/03/2015 Appointment: Alexandria Barron WPtel: [address] [place] [address] (15 min) Moderate 04/03/2015 Patient Education: Patient Medication Summary Completed 04/03/2015 Visit Plan: Rosacea-continue finacea as directed-add metronidazole cream twice daily-call if symptoms do not improve or if any worse. Lhwpkgibyt-kaewreo-hirkdoux with wraps-no change in treatment 02/27/2015 Appointment: [...] EGD. 12/05/2014 Appointment: Alexandria Barron WPtel: [address] [place] [address] [place] ([place]) New Patient 12/05/2014 Patient Education: Patient Medication Summary Completed 12/05/2014 Patient Education: Hypertension Completed 12/05/2014 Referral: Jose A Rios Referral Appointment Requested Referral: Alberta Wilks [address] [facility]66[facility] Referral Appointment Requested Referral: Glenys Bellotushar WPtel: [address] Referral Appointment Requested Referral: Jayro Wetzel WPtel: Referral Appointment Requested Instructions Comment . Hypothyroidism - pt with chronic hypothyroidism, [...] leave open to air Contusion of left nen-ebzouwnmd-rgjklfio to monitor Edema-elevate legs-follow up tomorrow for [...] as her home evaluation goes well. . Edema - pt has been advised [...] pt is to call for acute concerns. Antibiotic prescription sent to your pharmacy Take [...] do not improve or if any worse. [id number] with wraps-no change in treatment . Hypertension [...] over-medication. Knee pain - referral to specialist VENOUS DOPPLER RIGHT LEG . Right leg [...] treatment at this time. . Cellulitis - The patient was instructed [...] and understands the consequences of over-medication. . Bradycardia - Referral to Dr. Wilks. [...] lymphedema compression wraps. . Dressing change-return tomorrow keck rocephin and kenalog injection today in the [...] and understands the consequences of over-medication. . Skin lesion on face - lesion removed with scalpel and dressed with medihoney, pt to [facility] in 10 days for treatment of the lesion if not fully resolved. . Cellulitis - The pt states that [...]
--- OUTSIDE RECORDS SUMMARY | 2018-11-23 15:37 | XMS REPORT | CCD ---
Author Author [facility] Organization [facility] Address [address] [place] [address] Phone Care Team Providers Care Java User Interface Developer Name Role Phone PP Unavailable CCM Unavailable Summary Purpose Interface Exchange Insurance Providers Payer name Policy type / Coverage type Covered democrat ID Effective Begin Date Effective End Date WPS Medicare Part B Medicare Part B [id number] Unknown Unknown [facility] Medicare Part B [id number] Unknown Unknown Family history Brother Diagnosis Age At Onset Diabetes Unknown Skin cancer Unknown Father Diagnosis Age At Onset Heart disease Unknown Mother Diagnosis Age At Onset advanced age Unknown Hypothyroid Unknown Social History Social History Element Codes Description Effective Dates Living arrangements Unknown Correction VCV 09/23/2018 Marital status Unknown Single 12/05/2014 Number of children Unknown 0 12/05/2014 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 Quit 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 quit 20-25 [...] Fill Instructions oxycodone 5 mg tablet RxNorm: 0222225 2 Tablet(s) PO BID 201810/27/2018 Active oxycodone 5 mg tablet RxNorm: 1155996 2 Tablet(s) PO BID 201809/27/2018 Inactive oxycodone 5 mg tablet RxNorm: 6722709 2 Tablet(s) PO BID 201708/29/2018 Inactive Lasix 40 mg tablet RxNorm: 366647 1 Tablet(s) PO daily as needed edema if more than 3 pounds weight gain in 48 hours 07/23/2018 11/19/2018 Active oxycodone 5 mg tablet RxNorm: 3999847 2 Tablet(s) PO BID 201707/30/2018 Inactive nadolol 20 mg tablet RxNorm: 160296 1/2 Tablet(s) PO daily No Stop Date Active oxycodone 5 mg tablet RxNorm: 3936545 2 Tablet(s) PO BID 201707/15/2018 Inactive nadolol 20 mg tablet RxNorm: 503222 1 Tablet(s) TAKE 1 TABLET BY MOUTH EVERY DAY 05/25/2018 06/21/2018 Inactive Generic For:*CORGARD 20 MG TABLET 05/21/2018 10:10: 43 AM spironolactone 50 mg tablet RxNorm: 097956 TAKE 1 TABLET BY MOUTH EVERY DAY 05/21/2018 06/03/2018 Inactive Generic For:ALDACTONE 50MG 05/21/2018 10:10:31 AM pramipexole 0.25 mg tablet RxNorm: 615703 TAKE 1 TABLET BY MOUTH TWICE DAILY 05/21/2018 06/03/2018 Inactive Generic For:MIRAPEX 0.25MG TAB 05/21/2018 10:10:48 AM levothyroxine 88 mcg tablet RxNorm: 087776 TAKE 1 TABLET BY MOUTH EVERY DAY WITH A 100MCG TABLET 05/21/2018 06/03/2018 Inactive Generic For:*SYNTHROID 0.088MG TAB 05/21/2018 10:10:11 AM levothyroxine 100 mcg tablet RxNorm: 278279 TAKE 1 TABLET BY MOUTH EVERY DAY , TAKE WITH AN 88 MCG TABLET 05/21/2018 Inactive Generic For:*SYNTHROID 100 MCG TABLET 05/21/2018 10:10:04 AM Vitamin D3 2,000 unit capsule RxNorm: 494671 1 Capsule(s) PO daily 05/21/2018 No Stop Date Active nadolol 20 mg tablet RxNorm: 776106 TAKE 1/2 TABLET BY MOUTH EVERY DAY 05/21/2018 05/24/2018 Inactive Generic For:*CORGARD 20 MG TABLET 05/21/2018 10:10:43 AM Ocuvite tablet RxNorm : 1 Tablet(s) PO BID 05/21/2018 09/22/2018 Inactive oxycodone 5 mg tablet RxNorm: 7541858 1 Tablet(s) PO QID as needed 05/15/2018 06/13/2018 Inactive pramipexole 0.25 mg tablet RxNorm: 205774 1 Tablet(s) PO BID 05/20/2018 Inactive Requip 0.25 mg tablet RxNorm: 283849 1 Tablet(s) PO BID 201705/03/2018 Inactive potassium chloride ER 10 mEq tablet,extended release RxNorm: 062207 1 Tablet(s) PO daily as needed when taking lasix 04/23/2018 08/20/2018 Inactive Lasix 40 mg tablet RxNorm: 496363 1 Tablet(s) PO daily as needed edema if more than 3 pounds weight loss in 48 hours 04/23/2018 07/22/2018 Inactive potassium chloride ER 10 mEq tablet,extended release RxNorm: 068548 1 Tablet(s) PO daily as needed when taking lasix 04/01/2018 04/22/2018 Inactive Lasix 40 mg tablet RxNorm: 529539 1 Tablet(s) PO daily as needed edema 04/01/2018 04/22/2018 Inactive oxycodone 5 mg tablet RxNorm: 9466783 1 Tablet(s) PO QID as needed 03/18/2018 04/16/2018 Inactive levothyroxine 88 mcg tablet RxNorm: 899990 1 Tablet(s) PO daily . Take with 100 mcg tablet. 02/19/2018 05/20/2018 Inactive spironolactone 50 mg tablet RxNorm: 966155 Tablet(s) TAKE 1 TABLET BY MOUTH DAILY 02/19/2018 05/20/2018 Inactive levothyroxine 100 mcg tablet RxNorm: 095556 1 Tablet(s) PO daily . Take with 88 mcg tablet 02/19/2018 02/18/2018 Inactive levothyroxine 88 mcg tablet RxNorm: 402090 1 Tablet(s) PO daily . Take with 100 mcg tablet. 02/19/2018 02/18/2018 Inactive levothyroxine 100 mcg tablet RxNorm: 318417 1 Tablet(s) PO daily . Take with 88 mcg tablet 02/19/2018 05/20/2018 Inactive spironolactone 25 mg tablet RxNorm: 617190 1 Tablet(s) PO daily 02/12/2018 02/18/2018 Inactive pt will let you know when she is ready for the refill oxycodone 10 mg tablet RxNorm: 0525851 1 Tablet(s) PO TID as needed 02/12/2018 03/13/2018 Inactive oxycodone 10 mg tablet RxNorm: 9882297 1 Tablet(s) PO Q6 as needed 01/22/2018 02/11/2018 Inactive spironolactone 50 mg tablet RxNorm: 946745 TAKE 1 TABLET BY MOUTH DAILY 01/05/2018 02/11/2018 Inactive Generic For:ALDACTONE 50MG 01/05/2018 8:27:46 AM Kenalog 40 mg/mL suspension for injection RxNorm: 9694169 1 Milliliter(s) Inj 12/26/2017 12/26/2017 Inactive Zithromax Z-Fransisco 250 mg tablet RxNorm: 112999 1 Tablet(s) PO UD 12/26/2017 12/30/2017 Inactive oxycodone 10 mg tablet RxNorm: 3616271 1 Tablet(s) PO Q6 as needed 11/25/2017 12/24/2017 Inactive nystatin 100,000 unit/gram topical powder RxNorm: 546850 1 Application TOP BID 11/13/2017 09/22/2018 Inactive nystatin 100,000 unit/gram topical cream RxNorm: 666614 Gram(s) TOP QID 11/12/2017 11/18/2017 Inactive nystatin 100,000 unit/gram topical cream RxNorm: 115349 Gram(s) TOP QID 11/12/2017 11/11/2017 Inactive Lasix 20 mg tablet RxNorm: 895024 1 Tablet(s) PO daily as needed edema 11/03/2017 11/07/2017 Inactive potassium chloride ER 10 mEq tablet,extended release RxNorm: 521086 1 Tablet(s) PO daily while on the lasix 11/03/201701/2018 Inactive Keflex 500 mg capsule RxNorm: 399045 1 Capsule(s) PO TID 201711/07/2017 Inactive potassium chloride ER 10 mEq tablet,extended release RxNorm: 241612 1 Tablet(s) PO daily while on the lasix 10/29/2017 Inactive Lasix 20 mg tablet RxNorm: 417514 1 Tablet(s) PO daily as needed edema 10/29/2017 10/31/2017 Inactive oxycodone 10 mg tablet RxNorm: 5573177 1 Tablet(s) PO Q6 as needed 09/29/2017 10/28/2017 Inactive levothyroxine 200 mcg tablet RxNorm: 302510 TAKE 1 TABLET BY MOUTH DAILY 09/01/2017 02/18/2018 Inactive Generic For:*SYNTHROID 0.2MG TAB 09/01/2017 8:36:32 AM Bactrim DS 800 mg-160 mg tablet RxNorm: 599813 1 Tablet(s) PO BID 08/07/2017 08/16/2017 Inactive Bactrim DS 800 mg-160 mg tablet RxNorm: 917375 1 Tablet(s) PO BID 08/07/2017 08/06/2017 Inactive oxycodone 10 mg tablet RxNorm: 3071395 1 Tablet(s) PO Q6 as needed 07/31/2017 08/29/2017 Inactive spironolactone 50 mg tablet RxNorm: 051332 1 Tablet(s) PO daily 06/30/2017 12/26/2017 Inactive Not due for a refill until next month nadolol 20 mg tablet RxNorm: 254394 1/2 Tablet(s) PO daily 11/28/2017 Inactive nadolol 20 mg tablet RxNorm: 352214 1 Tablet(s) PO daily 201609/22/2018 Inactive nadolol 20 mg tablet RxNorm: 809536 1/2 Tablet(s) PO daily 05/21/2017 Inactive oxycodone 10 mg tablet RxNorm: 9985449 1 Tablet(s) PO Q6 as needed 04/01/2017 04/30/2017 Inactive levothyroxine 200 mcg tablet RxNorm: 216825 TAKE 1 TABLET BY MOUTH DAILY 03/10/2017 08/31/2017 Inactive Generic For:*SYNTHROID 0.2MG TAB 03/10/2017 8:49:05 AM potassium chloride ER 10 mEq tablet,extended release RxNorm: 897408 1 Tablet(s) PO daily while on the lasix 02/18/2017 Inactive Lasix 20 mg tablet RxNorm: 776051 1 Tablet(s) PO daily as needed edema 02/18/2017 02/20/2017 Inactive Keflex 500 mg capsule RxNorm: 955925 1 Capsule(s) PO TID 201602/16/2017 Inactive Lasix 20 mg tablet RxNorm: 881906 1 Tablet(s) PO daily 201602/15/2017 Inactive potassium chloride ER 10 mEq tablet,extended release RxNorm: 282437 1 Tablet(s) PO daily while on the lasix 02/14/2017 Inactive Lasix 20 mg tablet RxNorm: 032827 1 Tablet(s) PO daily 201602/13/2017 Inactive potassium chloride ER 10 mEq tablet,extended release RxNorm: 728937 1 Tablet(s) PO daily while on the lasix 02/14/2017 Inactive oxycodone 10 mg tablet RxNorm: 2953805 1 Tablet(s) PO Q6 as needed 02/05/2017 03/06/2017 Inactive minocycline 50 mg tablet RxNorm: 718730 1 Tablet(s) PO Q72H 12/03/2017 Inactive spironolactone 50 mg tablet RxNorm: 876304 1 Tablet(s) PO daily 12/18/2016 06/15/2017 Inactive Not due for a refill until next month oxycodone 10 mg tablet RxNorm: 7019158 1 Tablet(s) PO Q6 as needed 12/05/2016 01/03/2017 Inactive nadolol 20 mg tablet RxNorm: 268137 1 Tablet(s) PO daily 201604/15/2017 Inactive oxycodone 10 mg tablet RxNorm: 3541905 1 Tablet(s) PO Q6 as needed 09/30/2016 10/29/2016 Inactive levothyroxine 200 mcg tablet RxNorm: 968607 TAKE 1 TABLET BY MOUTH DAILY 09/12/2016 03/09/2017 Inactive Generic For:*SYNTHROID 0.2MG TAB 09/12/2016 8:41:27 AM oxycodone 10 mg tablet RxNorm: 4028108 1 Tablet(s) PO Q6 as needed 08/06/2016 09/04/2016 Inactive oxycodone 10 mg tablet RxNorm: 5229740 1 Tablet(s) PO Q6 as needed 06/10/2016 07/09/2016 Inactive oxycodone 10 mg tablet RxNorm: 9544285 1 Tablet(s) PO Q6 as needed 04/05/2016 05/04/2016 Inactive levothyroxine 200 mcg tablet RxNorm: 836854 1 Tablet(s) PO daily 03/14/2016 09/09/2016 Inactive oxycodone 10 mg tablet RxNorm: 6953972 1 Tablet(s) PO Q6 as needed 02/08/2016 03/08/2016 Inactive Kenalog 40 mg/mL suspension for injection RxNorm: 6734772 Milliliter(s) Inj 11/16/2015 11/16/2015 Inactive Zithromax Z-Fransisco 250 mg tablet RxNorm: 843757 1 Tablet(s) PO UD 11/16/2015 11/20/2015 Inactive zpack, take probiotic while on abx oxycodone 10 mg tablet RxNorm: 1900850 1 Tablet(s) PO Q6 as needed 11/16/2015 02/07/2016 Inactive ceftriaxone 500 mg solution for injection RxNorm: 5362113 Inj 11/16/2015 11/16/2015 Inactive oxycodone 10 mg tablet RxNorm: 0300238 1 Tablet(s) PO Q6 as needed 10/11/2015 11/15/2015 Inactive levothyroxine 200 mcg tablet RxNorm: 908552 1 Tablet(s) PO daily 09/14/2015 03/11/2016 Inactive oxycodone 10 mg tablet RxNorm: 4821207 1 Tablet(s) PO Q6 as needed 08/10/2015 10/10/2015 Inactive Keflex 500 mg capsule RxNorm: 609348 1 Capsule(s) PO TID 201407/03/2015 Inactive Keflex 500 mg capsule RxNorm: 301456 1 Capsule(s) PO TID 201406/25/2015 Inactive oxycodone 10 mg tablet RxNorm: 8185993 1 Tablet(s) PO Q6 as needed 04/03/2015 08/09/2015 Inactive oxycodone 10 mg tablet RxNorm: 6938643 1 Tablet(s) PO Q6 as needed 02/14/2015 04/02/2015 Inactive Keflex 500 mg capsule RxNorm: 898313 1 Capsule(s) PO TID 201401/22/2015 Inactive Culturelle 10 billion cell capsule RxNorm: 122393 1 Capsule(s) PO daily 01/16/2015 02/14/2015 Inactive Dulcolax Stool Softener (docusate) 100 mg capsule RxNorm: 0191077 1 Capsule(s) PO daily 12/05/2014 02/11/2018 Inactive [SAVINGS FOR NON-COVERED DRUGS -- BIN:[id number], PCN: [id number], Group: [id number], ID# [id number], Questions: . THIS IS NOT INSURANCE.] Claritin 10 mg tablet RxNorm: 824582 1 Tablet(s) PO daily No Start Date Active Miralax 17 gram/dose oral powder RxNorm: 314413 17 Gram(s) PO QHS No Start Date Active multivitamin tablet RxNorm: 1 Tablet(s) PO daily No Start Date Active Colace 100 mg capsule RxNorm: 5623056 1 Capsule(s) PO BID No Start Date Active PreserVision AREDS oral RxNorm: 818022 oral No Start Date Active Restasis 0.05 % eye drops in a dropperette RxNorm: 411892 1 Drop(s) OPH BID No Start Date Active Vitamin D3 2,000 unit capsule RxNorm: 941397 1 Capsule(s) PO daily No Start Date 05/20/2018 Inactive minocycline 50 mg tablet RxNorm: 535088 1 Tablet(s) PO QHS No Start Date 01/20/2017 Inactive nadolol 20 mg tablet RxNorm: 716475 1 Tablet(s) PO daily No Start Date 11/05/2016 Inactive nadolol 20 mg tablet RxNorm: 827521 1 Tablet(s) PO daily No Start Date 11/05/2016 Inactive Ocuvite tablet RxNorm : 1 Tablet(s) PO BID No Start Date 05/20/2018 Inactive oxycodone 10 mg tablet RxNorm: 9938340 1 Tablet(s) PO Q6 as needed No Start Date 02/13/2015 Inactive Dulcolax Stool Softener (docusate) 100 mg capsule RxNorm: 6465411 1 Capsule(s) PO BID No Start Date 12/04/2014 Inactive Multivitamin 50 Plus tablet RxNorm: 1 Tablet(s) PO QAM No Start Date 02/11/2018 Inactive Finacea 15 % topical gel RxNorm: 7735071 TOP No Start Date 05/24/2018 Inactive Synthroid 200mcg Oral RxNorm: oral No Start Date 09/13/2015 Inactive spironolactone 50 mg tablet RxNorm: 530519 1 Tablet(s) PO daily No Start Date 12/17/2016 Inactive spironolactone 50 mg tablet RxNorm: 640251 1 Tablet(s) PO daily No Start Date 02/11/2018 Inactive Medication Administered Medication Codes Instructions Start Date Status Kenalog 40 mg/mL suspension for injection RxNorm: 8380761 1Milliliter 12/26/2017 No longer Active ceftriaxone 500 mg solution for injection RxNorm: 3441750 11/16/2015 No longer Active Kenalog 40 mg/mL suspension for injection RxNorm: 6283548 Milliliter 11/16/2015 No longer Active Immunizations Vaccine [...] classified ICD-10: I89.0 ICD-9: 457.1 07/23/2018 Other ascites ICD-10: R18.8 ICD-9: 789.59 07/23/2018 Low back pain ICD-10: M54.5 ICD-9: [...] Item Item Code Result Date Free T4 Dqj771 FREE T4 1.92 ng/dL 04/24/2018 Tsh Ord6 [...] 31.1 pg 04/24/2018 Cbc With Differential Ord2 Dolores% 13.0 % 04/24/2018 Cbc With Differential Ord2 [...] 1.00 K/ul 04/24/2018 Cbc With Differential Ord2 Dolores ABS# 0.4 K/ul 04/24/2018 Cbc With Differential Ord2 Eos ABS# 0.0 K/ul 04/24/2018 Cbc With Differential Ord2 Baso ABS# 0.0 K/ul 04/24/2018 Comp Metabolic Lup643 NA 138 mEq/L 04/24/2018 Comp Metabolic Xse281 K 3.9 mEq/L 04/24/2018 Comp Metabolic Byj225 CL 97 mEq/L 04/24/2018 Comp Metabolic Whv584 CO2 32.0 mEq/L 04/24/2018 Comp Metabolic Qhm446 ANION GAP 13 04/24/2018 Comp Metabolic Xar225 GLUCOSE 194 mg/dL 04/24/2018 Comp Metabolic Muw014 Creat 0.8 mg/dL 04/24/2018 Comp Metabolic Rbm838 eGFR 70 ml/min/1.73m2 04/24/2018 Comp Metabolic Bvs775 BUN 20 mg/dL 04/24/2018 Comp Metabolic Cuv910 B/C Ratio 24.1 Ratio 04/24/2018 Comp Metabolic Hxt052 CALCIUM 9.4 mg/dL 04/24/2018 Comp Metabolic Ocs679 ALK PHOS 110 U/L 04/24/2018 Comp Metabolic Qgn149 AST(SGOT) 33 U/L 04/24/2018 Comp Metabolic Tzj958 ALT(SGPT) 16 U/L 04/24/2018 Comp Metabolic Wfn993 BILI T 1.8 mg/dL 04/24/2018 Comp Metabolic Xim551 ALBUMIN 4.0 g/dL 04/24/2018 Comp Metabolic Nle313 TPRO 5.7 g/dL 04/24/2018 Comp Metabolic Kyb709 GLOB 1.7 g/dL 04/24/2018 Comp Metabolic Nac147 A/G Ratio 2.3 Ratio 04/24/2018 Comp Metabolic Bxt599 Osmo 284 mOsmo 04/24/2018 Tsh Ord6 TSH (3rd IS) 0.07 uIU/mL 02/13/2018 Free T4 Qrw907 FREE T4 1.85 ng/dL 02/13/2018 %Hba1C Dxk682 % HbA1c 59137-5 5.9 % 01/21/2017 %Hba1C Hmf890 Gluc Ave 123 mg/dL 01/21/2017 Comp Metabolic Ckv518 NA 136 mEq/L 01/21/2017 Comp Metabolic Ctf336 K 4.3 mEq/L 01/21/2017 Comp Metabolic Nua760 CL 99 mEq/L 01/21/2017 Comp Metabolic Rqc835 CO2 30.0 mEq/L 01/21/2017 Comp Metabolic Odq708 ANION GAP 11 01/21/2017 Comp Metabolic Xiz188 GLUCOSE 234 mg/dL 01/21/2017 Comp Metabolic Tsn878 Creat 0.5 mg/dL 01/21/2017 Comp Metabolic Uyy094 eGFR 115 ml/min/1.73m2 01/21/2017 Comp Metabolic Urf244 BUN 10 mg/dL 01/21/2017 Comp Metabolic Qfv666 B/C Ratio 18.5 Ratio 01/21/2017 Comp Metabolic Dbw728 CALCIUM 8.8 mg/dL 01/21/2017 Comp Metabolic Jtk711 ALK PHOS 74 U/L 01/21/2017 Comp Metabolic Glv156 AST(SGOT) 28 U/L 01/21/2017 Comp Metabolic Iba644 ALT(SGPT) 15 U/L 01/21/2017 Comp Metabolic Qsw943 BILI T 1.1 mg/dL 01/21/2017 Comp Metabolic Kst765 ALBUMIN 3.8 g/dL 01/21/2017 Comp Metabolic Dmo363 TPRO 5.8 g/dL 01/21/2017 Comp Metabolic Cdy037 GLOB 2.0 g/dL 01/21/2017 Comp Metabolic Hbt320 A/G Ratio 1.9 Ratio 01/21/2017 Comp Metabolic Myz266 Osmo 279 mOsmo 01/21/2017 Tsh Ord6 hTSH II 0.80 uIU/mL 04/03/2015 Bili D Ord93 BILI D 0.1 mg/dL 04/03/2015 Bili D Ord93 BILI I 0.9 mg/dL 04/03/2015 Free T4 Kgz491 FREE T4 1.27 ng/dL 04/03/2015 Cbc With [...] Ord2 RDW 15.6 % 04/03/2015 Comp Metabolic Vzz195 NA 136 mEq/L 04/03/2015 Comp Metabolic Jha715 K 4.3 mEq/L 04/03/2015 Comp Metabolic Vbd637 CL 99 mEq/L 04/03/2015 Comp Metabolic Hab792 CO2 29.0 mEq/L 04/03/2015 Comp Metabolic Jfl201 ANION GAP 12 04/03/2015 Comp Metabolic Zgp145 GLUCOSE 120 mg/dL 04/03/2015 Comp Metabolic Yzm206 Creat 0.5 mg/dL 04/03/2015 Comp Metabolic Cqq398 eGFR 118 ml/min/1.73m2 04/03/2015 Comp Metabolic Rir649 BUN 11 mg/dL 04/03/2015 Comp Metabolic Tgd236 B/C Ratio 20.8 Ratio 04/03/2015 Comp Metabolic Heq561 CALCIUM 9.3 mg/dL 04/03/2015 Comp Metabolic Fbh200 ALK PHOS 61 U/L 04/03/2015 Comp Metabolic Aui393 AST(SGOT) 28 U/L 04/03/2015 Comp Metabolic Vtg879 ALT(SGPT) 16 U/L 04/03/2015 Comp Metabolic Efo722 BILI T 1.0 mg/dL 04/03/2015 Comp Metabolic Kao497 ALBUMIN 4.1 g/dL 04/03/2015 Comp Metabolic Dio562 TPRO 6.1 g/dL 04/03/2015 Comp Metabolic Pwo027 GLOB 2.0 g/dL 04/03/2015 Comp Metabolic Chn356 A/G Ratio 2.1 Ratio 04/03/2015 Comp Metabolic Tlw868 Osmo 273 mOsmo 04/03/2015 Review of Systems [...] FLU VACC PRSV FREE INC ANTIG CPT-4: 16319 04/23/2018 TRIAMCINOLONE ACET INJ NOS CPT-4: J3301 12/26/2017 ADMIN INFLUENZA VIRUS VAC CPT-4: G0008 04/16/2017 FLU VACC PRSV FREE INC ANTIG CPT-4: 42931 04/16/2017 TRIAMCINOLONE ACET INJ NOS CPT-4: J3301 [...] Code : 8480-6 BMI: 23.6 Code : 48489-9 Heart Rate 1 : 59 bpm Height: 5'1" Respiratory Rate: 18 bpm SpO2: 99% Temperature: 37.0 (C) / 98.6 (F ) Weight: 125 lbs 04/23/2018 Blood Pressure 2: 118/62 Code : 8480-6 BMI: 22.3 Code : 36707-3 Heart Rate 1 : 73 bpm Height: 5'1" SpO2: 97% Weight: 118 lbs 04/01/2018 Blood Pressure 1: 136/72 Code : 8480-6 BMI: 26.6 Code : 12959-6 Heart Rate 1 : 75 bpm Height: 5'1" SpO2: 98% Weight: 141 lbs 03/18/2018 Blood Pressure 1: 132/62 Code : 8480-6 Heart Rate 1: 61 bpm Height: 5'1" SpO2: 96% Weight: 03/09/2018 Blood Pressure 1: 122/60 Code : 8480-6 Heart Rate 1: 65 bpm Height: 5'1" SpO2: 98% Weight: 02/12/2018 Blood Pressure 1: 100/68 Code : 8480-6 BMI: 24.3 Code : 31648-7 Heart Rate 1 : 68 bpm Height: 5'1" SpO2: 96% Weight: 128 lbs 13 oz 12/26/2017 Blood Pressure 1: 126/68 Code : 8480-6 BMI: 26.7 Code : 41300-7 Heart Rate 1 : 66 bpm Height: 5'1" SpO2: 98% Temperature: 36.8 (C) / 98.2 (F) Weight: 141 lbs 8 oz 12/04/2017 Blood Pressure 1: 132/76 Code : 8480-6 BMI: 26.5 Code : 66092-0 Heart Rate 1 : 73 bpm Height: 5'1" SpO2: 96% Weight: 140 lbs 11/13/2017 Blood Pressure 1: 126/62 Code : 8480-6 Heart Rate 1: 69 bpm Height: 5'1" SpO2: 96% Weight: 11/06/2017 Blood Pressure 1: 142/84 Code : 8480-6 BMI: 25.7 Code : 85751-9 Heart Rate 1 : 78 bpm Height: 5'1" SpO2: 95% Temperature: 36.9 (C) / 98.5 (F) Weight: 136 lbs 10/29/2017 Blood Pressure 1: 132/68 Code : 8480-6 BMI: 26.8 Code : 06771-4 Heart Rate 1 : 70 bpm Height: 5'1" SpO2: 98% Weight: 142 lbs 09/04/2017 Blood Pressure 1: 132/74 Code : 8480-6 BMI: 25.9 Code : 85865-0 Heart Rate 1 : 68 bpm Height: 5'1" SpO2: 96% Weight: 137 lbs 08/08/2017 Blood Pressure 1: 118/72 Code : 8480-6 BMI: 26.6 Code : 98088-2 Heart Rate 1 : 68 bpm Height: 5'1" SpO2: 95% Weight: 141 lbs 05/29/2017 Blood Pressure 1: 142/78 Code : 8480-6 BMI: 26.3 Code : 47491-5 Heart Rate 1 : 65 bpm Height: 5'1" SpO2: 95% Weight: 139 lbs 04/16/2017 Blood Pressure 1: 136/62 Code : 8480-6 BMI: 27.4 Code : 44340-8 Heart Rate 1 : 38 bpm Height: 5'1" SpO2: 98% Weight: 145 lbs 02/10/2017 Blood Pressure 1: 124/70 Code : 8480-6 BMI: 27.4 Code : 92143-1 Heart Rate 1 : 70 bpm Height: 5'1" SpO2: 96% Weight: 145 lbs 01/21/2017 Blood Pressure 1: 120/70 Code : 8480-6 BMI: 27.2 Code : 41339-1 Heart Rate 1 : 65 bpm Height: 5'1" SpO2: 95% Weight: 144 lbs 12/18/2016 Blood Pressure 1: 122/74 Code : 8480-6 BMI: 27.4 Code : 03119-5 Heart Rate 1 : 66 bpm Height: 5'1" SpO2: 97% Weight: 145 lbs 08/26/2016 Blood Pressure 1: 110/64 Code : 8480-6 BMI: 28.0 Code : 39332-2 Heart Rate 1 : 67 bpm Height: 5'1" SpO2: 97% Weight: 148 lbs 02/27/2016 Blood Pressure 1: 126/74 Code : 8480-6 Heart Rate 1: 67 bpm Height: 5'1" SpO2: 97% 02/19/2016 Blood Pressure 1: 130/80 Code : 8480-6 BMI: 28.2 Code : 02741-1 Heart Rate 1 : 74 bpm Height: 5'1" SpO2: 96% Weight: 149 lbs 02/08/2016 Blood Pressure 1: 122/78 Code : 8480-6 BMI: 28.2 Code : 88571-8 Heart Rate 1 : 63 bpm Height: 5'1" SpO2: 96% Weight: 149 lbs 11/16/2015 Blood Pressure 1: 128/70 Code : 8480-6 BMI: 27.8 Code : 11225-3 Heart Rate 1 : 64 bpm Height: 5'1" SpO2: 97% Weight: 147 lbs 07/18/2015 Blood Pressure 1: 110/60 Code : 8480-6 BMI: 28.5 Code : 46999-4 Heart Rate 1 : 61 bpm Height: 5'1" SpO2: 97% Weight: 151 lbs 06/27/2015 Blood Pressure 1: 122/60 Code : 8480-6 BMI: 28.9 Code : 62625-4 Heart Rate 1 : 63 bpm Height: 5'1" SpO2: 95% Weight: 153 lbs 06/19/2015 Blood Pressure 1: 120/78 Code : 8480-6 Heart Rate 1: 68 bpm SpO2: 96% Weight: 154 lbs 04/03/2015 Blood Pressure 1: 128/68 Code : 8480-6 BMI: 29.1 Code : 70933-2 Heart Rate 1 : 70 bpm Height: 5'1" SpO2: 97% Weight: 154 lbs 02/27/2015 Blood Pressure 1: 122/84 Code : 8480-6 BMI: 29.5 Code : 69169-9 Heart Rate 1 : 67 bpm Height: 5'1" SpO2: 95% Weight: 156 lbs 01/26/2015 Blood Pressure 1: 132/70 Code : 8480-6 BMI: 30.2 Code : 08352-5 Heart Rate 1 : 76 bpm Height: 5'1" Weight: 160 lbs 01/16/2015 Blood Pressure 1: 140/70 Code : 8480-6 BMI: 30.0 Code : 12864-1 Heart Rate 1 : 78 bpm Height: 5'1" Respiratory Rate: 20 bpm Weight: 159 lbs 12/05/2014 Blood Pressure 1: 138/78 Code : 8480-6 BMI: 30.8 Code : 89836-6 Heart Rate 1 : 76 bpm Height: [...] not bring in readings 2018 -Checked at [facility] Pertinent Findings edema 09/23/2018 None Quality chronic [...] ill contacts 07/23/2018 she is in a long term [employer] recumbent position 07/23/2018 None Pertinent Findings [...] ill contacts 07/07/2018 she is in a long term [employer] recumbent position 07/07/2018 None Hospital Follow [...] data Encounters Encounter Performer Location Codes Date [phone]) [id number] EST. PATIENT, LEVEL IV Diagnosis: Essential (primary) hypertension[ICD10: I10] Diagnosis: Localized edema[ICD10: R60.0] Diagnosis: Atrophy of thyroid (acquired)[ICD10: E03.4] Alexandria Barron MD, [facility] CPT-4: 72687 09/23/2018 [id number] EST. PATIENT, LEVEL III Diagnosis: Essential (primary) hypertension[ICD10: I10] Diagnosis: Localized edema[ICD10: R60.0] Светлана Barron MD, [facility] CPT-4 : 05600 09/14/2018 ([id number]) [id number] EST. PATIENT, LEVEL IV Diagnosis: Essential (primary) hypertension[ICD10: I10] Diagnosis: Lymphedema, not elsewhere classified[ICD10: I89.0] Diagnosis: Other ascites[ICD10: R18.8] Alexandria Barron MD, [facility] CPT- 4: 18103 07/23/2018 ([id number]) [id number] EST. PATIENT, LEVEL IV Diagnosis: Essential (primary) hypertension[ICD10: I10] Diagnosis: Atrophy of thyroid (acquired)[ICD10: E03.4] Diagnosis: Lymphedema, not elsewhere classified[ICD10: I89.0] [facility] CPT-4: 49051 07/07/[phone]) [id number] EST. PATIENT, LEVEL IV Diagnosis: Essential (primary) hypertension[ICD10: I10] Diagnosis: Localized edema[ICD10: R60.0] [facility] CPT- 4: 96254 06/22/2018 ([id number]) [id number] EST. PATIENT, LEVEL IV Diagnosis: Atrophy of thyroid (acquired)[ICD10: E03.4] Diagnosis: Essential (primary) hypertension[ICD10: I10] Diagnosis: Other chronic pain[ICD10: G89.29] Diagnosis: Pain in left knee[ICD10: M25.562] Diagnosis: Low back pain[ICD10: M54.5] [facility] CPT- 4: 53254 05/25/2018 ([id number]) [id number] EST. 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 PATIENT, LEVEL IV Diagnosis: Essential (primary) hypertension[ICD10: I10] Diagnosis: Low back pain[ICD10: M54.5] Diagnosis: Localized edema[ICD10: R60.0] Diagnosis: Other chronic pain[ICD10: G89.29] Diagnosis: Obstructive sleep apnea (adult) (pediatric)[ICD10: G47.33] [facility] CPT-4: 42922 04/01/2018 ([id number]) [id number] EST. PATIENT, LEVEL IV Diagnosis: Essential (primary) hypertension[ICD10: I10] Diagnosis: Other chronic pain[ICD10: G89.29] Diagnosis: Unsteadiness on feet[ICD10: R26.81] [facility]ron MD, [facility] CPT-4: 88167 03/18/2018 ([id number]) 14160 EST. PATIENT, LEVEL IV Diagnosis: Low back pain[ICD10: M54.5] Diagnosis: Localized edema[ICD10: R60.0] Diagnosis: Essential (primary) hypertension[ICD10: I10] Diagnosis: Other chronic pain[ICD10: G89.29] Diagnosis: Pressure ulcer of left buttock, stage 1[ICD10: L89.321] Diagnosis: Obstructive sleep apnea (adult) (pediatric)[ICD10: G47.33] Alexandria Barron MD , [facility] CPT-4: 22078 03/09/2018 ([id number]) 21182 EST. PATIENT, LEVEL IV Diagnosis: Atrophy of thyroid (acquired)[ICD10: E03.4] Diagnosis: Essential (primary) hypertension[ICD10: I10] Diagnosis: Localized edema[ICD10: R60.0] Diagnosis: Other chronic pain[ICD10: G89.29] Alexandria Barron MD, [facility] CPT-4: 50374 02/12/2018 ([id number]) 80754 EST. PATIENT, LEVEL III Diagnosis: Cough[ICD10: R05] Diagnosis: Acute bronchitis, unspecified[ICD10: J20.9] Sandra Barron MD, [facility] CPT-4: 09424 12/26/2017 ([id number]) 03755 EST. PATIENT, LEVEL IV Diagnosis: Essential (primary) hypertension[ICD10: I10] Diagnosis: Other specified noninfective disorders of lymphatic vessels and lymph nodes[ICD10: I89.8] Diagnosis: Atrophy of thyroid (acquired)[ICD10: E03.4] Alexandria Barron MD, [facility] CPT-4: 23074 12/04/2017 23978 EST. PATIENT, LEVEL III Diagnosis: Candidiasis of skin and nail[ICD10: B37.2] Светлана Barron MD, [facility] CPT-4: 91725 11/13/2017 ([id number]) 81556 EST. PATIENT, LEVEL III Diagnosis: Lymphedema, not elsewhere classified[ICD10: I89.0] Diagnosis: Low back pain[ICD10: M54.5] Diagnosis: Localized edema[ICD10: R60.0] Alexandria Barron MD, [facility] CPT- 4: 17162 11/06/2017 ([id number]) Miscellaneous no charge Diagnosis: Localized edema[ICD10: R60.0] Diagnosis: Cellulitis of right lower limb[ICD10: L03.115] Diagnosis: Cellulitis of left lower limb[ICD10: L03.116] Светлана Barron MD, [facility] CPT-4: 31544 11/03/2017 23944 EST. PATIENT, LEVEL III Diagnosis: Cellulitis of left lower limb[ICD10: L03.116] Diagnosis: Localized edema[ICD10: R60.0] Светлана Barron MD, [facility] CPT-4 : 02525 10/29/2017 ([id number]) 42332 EST. PATIENT, LEVEL IV Diagnosis: Essential (primary) hypertension[ICD10: I10] Diagnosis: Atrophy of thyroid (acquired)[ICD10: E03.4] Diagnosis: Pain in left knee[ICD10: M25.562] Diagnosis: Stiffness of left hand, not elsewhere classified[ICD10: M25.642] Diagnosis: Stiffness of right hand, not elsewhere classified[ICD10: M25.641] Alexandria Barron MD, [facility] CPT-4: 45611 09/04/2017 ([id number]) 17671 EST. PATIENT, LEVEL III Diagnosis: Other viral warts[ICD10: B07.8] Diagnosis: Other skin changes[ICD10: R23.8] Alexandria Barron MD, [facility] CPT-4: 08289 08/08/2017 ([id number]) 94957 EST. 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 PATIENT, LEVEL III Diagnosis: Cellulitis of left lower limb[ICD10: L03.116] Diagnosis: Cellulitis of right lower limb[ICD10: L03.115] Светлана Barron MD, [facility] CPT-4: 72017 02/10/2017 ([id number]) 19480 EST. PATIENT, LEVEL IV Diagnosis: Essential (primary) hypertension[ICD10: I10] Diagnosis: Other abnormal glucose[ICD10: R73.09] Diagnosis: Localized edema[ICD10: R60.0] Alexandria Barron MD, [facility] CPT- 4: 94404 01/21/2017 [id number] EST. 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 PATIENT, LEVEL IV Diagnosis: Essential (primary) hypertension[ICD10: I10] Diagnosis: Pain in left knee[ICD10: M25.562] Diagnosis: Other instability, left knee[ICD10: M25.362] Diagnosis: Other chronic pain[ICD10: G89.29] Alexandria Barron MD, [facility] CPT-4: 00862 08/26/2016 ([id number]) 80548 EST. PATIENT, LEVEL III Diagnosis: Localized edema[ICD10: R60.0] Sandra Barron MD, [facility] CPT-4: 30080 02/27/2016 ([id number]) Miscellaneous no charge Diagnosis: Lymphedema, not elsewhere classified[ICD10: I89.0] Sandra Barron MD, [facility] CPT-4: 37548 02/20/2016 ([id number] 26003 EST. PATIENT, LEVEL III Diagnosis: Contusion of left lower leg, subsequent encounter[ICD10: S80.12XD] Diagnosis: Abrasion of scalp, subsequent encounter[ICD10: S00.01XD] Diagnosis: Laceration without foreign body of left upper arm, subsequent encounter[ICD10: S41.112D] Diagnosis: Localized edema[ICD10: R60.0] Sandra Barron MD, [facility] CPT-4: 41965 02/19/2016 ([id number]) Miscellaneous no charge Diagnosis: Laceration without foreign body of left upper arm, subsequent encounter[ICD10: S41.112D] Diagnosis: Abrasion of scalp, subsequent encounter[ICD10: S00.01XD] Sandra Barron MD , [facility] CPT-4: 35133 02/12/2016 ([id number]) 21633 EST. PATIENT, LEVEL IV Diagnosis: Contusion of left lower leg, initial encounter[ICD10: S80.12XA] Diagnosis: Abrasion of scalp, initial encounter[ICD10: S00.01XA] Diagnosis: Laceration without foreign body of left upper arm, initial encounter[ ICD10: S41.112A] Diagnosis: Localized edema[ICD10: R60.0] Diagnosis: Hypothyroidism, unspecified[ICD10: E03.9] Diagnosis: Essential (primary) hypertension[ICD10: I10] Alexandria Barron MD, [facility] CPT-4: 31043 02/08/2016 ([id number]) 02999 EST. PATIENT, LEVEL IV Diagnosis: Cough[ICD10: R05] Diagnosis: Low back pain[ICD10: M54.5] Diagnosis: Allergic rhinitis due to pollen[ICD10: J30.1] Diagnosis: Acute upper respiratory infection, unspecified[ICD10: J06.9] Diagnosis: Acute bronchitis, unspecified[ICD10: J20.9] Sandra Barron MD, [facility] CPT-4: 88886 11/16/2015 ([id number]) 11859 EST. PATIENT, LEVEL IV Diagnosis: Hypothyroidism, unspecified[ICD10: E03.9] Diagnosis: Lymphedema, not elsewhere classified[ICD10: I89.0] Alexandria Barron MD, [facility] CPT-4: 23285 07/18/2015 47786 EST. PATIENT, LEVEL IV Diagnosis: Contusion of left lower leg, subsequent encounter[ICD10: S80.12XD] Diagnosis: Cellulitis of left lower limb[ICD10: L03.116] Светлана Barron MD, [facility] CPT-4: 41782 06/27/2015 17219 EST. PATIENT, LEVEL III Diagnosis: Contusion of left lower leg, initial encounter[ICD10: S80.12XA] Diagnosis: Cellulitis of left lower limb[ICD10: L03.116] Светлана Barron MD, [facility] CPT-4: 08019 06/19/2015 ([id number]) 82399 EST. 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 PATIENT, LEVEL III Diagnosis: Rosacea, acne[ICD9: 695.3] Diagnosis: Lymphedema[ICD9: 457.1] Sandra Barron MD, [facility] CPT-4: 54153 02/27/2015 ([id number]) 95855 EST. PATIENT, LEVEL III Diagnosis: Right leg swelling[ICD9: 729.81] Alexandria Barron MD, [facility] CPT-4: 53350 01/26/2015 ([id number]) 02044 EST. PATIENT, LEVEL III Diagnosis: CELLULITIS OF LEG[ICD9: 682.6] Mary Ann Barron MD, [facility] CPT-4 : 00769 01/16/2015 ([id number]) OFFICE VISIT, NEW - LEVEL 4 Diagnosis: Back pain[ICD9: 724.5] Diagnosis: Lymphedema[ICD9: 457.1] Diagnosis: Sacroiliitis[ICD9: 720.2] Diagnosis: Chronic pain[ICD9: 338.29] Diagnosis: HYPOTHYROIDISM[ICD9: 244.9] Diagnosis: Dysphagia[ICD9: 787.20] [facility] CPT-4: 52910 12/05/2014 Plan of Care Planned Activity Notes [...] compression wraps. 09/23/2018 App[facility]ment[phone] ([facility] min) Moderate 09/23/2018 Patient Education: Patient [...] concerns. 09/14/2018 App[facility]ment[facility]ана [phone] ([facility] Complex 09/14/2018 Patient [...] compression 07/23/2018 Appointment: Alexandria Barron WPtel: [phone] [facility] (15 min) Moderate 07/23/2018 Patient Education: Patient [...] seated. 07/07/2018 Appointment: Alexandria Barron WPtel: [phone] [facility] (15 min) Moderate 07/07/2018 Patient Education: Patient [...] peripheral edema. 06/22/2018 Appointment: Alexandria Barron WPtel: [facility]2 [facility] [place] (15 min) Moderate 06/22/2018 Patient Education: Patient Medication Summary Completed 06/22/2018 Appointment: Alexandria Barron WPtel: [phone] [facility] [place] (15 min) Moderate 05/27/2018 Visit Plan: [...] over-medication. 05/25/2018 Appointment: Alexandria [phone] (15 min) Moderate 05/25/2018 Patient Education: Patient Medication Summary Completed 05/25/2018 Patient Education: Back Pain Completed 05/25/2018 Appointment: Светлана Garcia [phone] ([facility] min) Complex 05/15/2018 Visit Plan: Hypertension [...] in clinic. 04/23/2018 Appointment: Alexandria Barron WPtel: [facility] (15 min) Moderate 04/23/2018 Patient Education: Patient [...] pt request. 04/01/2018 Appointment: Alexandria Bar[phone] (15 min) Moderate 04/01/2018 Patient Education: Patient [...] goes well. 03/18/2018 Appointment: Alexandria Barron WPtel: [address] [place], [place] [phone] (15 min) Moderate 03/18/2018 Patient Education: Patient [...] on buttock. 03/09/2018 Appointment: Alexandria Barron WPtel: [address] [place], [place] [address] (15 min) Moderate 03/09/2018 Patient Education: Patient [...] her report. 02/12/2018 Appointment: Alexandria Barron WPtel: [facility] (15 min) Moderate 02/12/2018 Patient Education: Patient Medication Summary Completed 02/12/2018 Visit Plan: Bronchitis- Pt advised to increase fluids, vitamin C. Discussed natural and expected course of this diagnosis and need to alert me if symptoms do not follow expected course, or if any worse. RX sent to patient's pharmacy. 12/26/2017 Appointment: Sandra Mcdonald WPtel: [facility]5 [phone] [place] (15 min) Moderate 12/26/2017 Patient Education: [...] when seated. 12/04/2017 Appointment: Alexandria Barron WPtel: [facility]5 [facility] (30 min) Complex 12/04/2017 Patient Education: Patient Medication Summary Completed 12/04/2017 Visit Plan: Yeast rash - The patient was instructed in appropriate care. The patient was instructed to use the ointment as per RX. The patient is to call for any change in symptoms, increase in size of the lesion, increase in pain, worsening redness, warmth, discharge. 11/13/2017 Appointment: Светлана Garcia WPtel: [facility]9 [facility] (30 min) Complex 11/13/2017 Patient Education: Patient [...] care. 11/06/2017 Appointment: Alexandria Barron WPtel: [phone] [facility] (30 min) Complex 11/06/2017 Patient Education: Patient [...] peripheral edema. 10/29/2017 Appointment: Светлана Garcia WPtel: [phone] [facility] (15 min) Moderate 10/29/2017 Patient Education: Patient [...] sample 09/04/2017 Appointment: Alexandria Barron WPtel: [phone] [facility] (15 min) Moderate 09/04/2017 Patient Education: Patient Medication Summary Completed 09/04/2017 Appointment: Светлана Garcia WPtel: [phone] [facility] (15 min) Moderate 08/18/2017 Visit Plan: Skin lesion on face - lesion removed with scalpel and dressed with medihoney, pt to RTC in 10 days for treatment of the lesion if not fully resolved. 08/08/2017 Appointment: Alexandria Barron WPtel: [phone] [facility] (30 min) Complex 08/08/2017 Patient Education: Patient [...] medication. 05/29/2017 Appointment: [facility]: [phone] [place] (15 min) Moderate 05/29/2017 Patient Education: Patient Medication Summary Completed 05/29/2017 Appointment: Alexandria Barron WPtel: [phone] [facility] [place] (15 min) Moderate 04/30/2017 [facility]erral: [facility]ks [facility] Patient informed. Referral info faxed. Completed [...] of control. 04/16/2017 Appointment: Alexandria Barron WPtel: [facility]1 [facility] (15 min) Moderate 04/16/2017 Patient Education: Patient Medication Summary Completed 04/16/2017 Care Plan: Referral Order SNOMED-CT : [id number] Pending 04/16/2017 Visit Plan: Wound healed - no further treatment at this time. 02/24/2017 Appointment: Nurse Visit 02/24/2017 Patient Education: Patient Medication Summary Completed 02/24/2017 Appointment: Nurse Visit 02/18/2017 Appointment: Светлана Garcia WPtel: [facility] (30 min) Complex 02/14/2017 Visit Plan: Cellulitis - The patient was instructed in appropriate wound care. The patient was instructed to use the antibiotic as per RX. The patient is to call for any change in symptoms, increase in size of the lesion, increase in pain, worsening redness, warmth, discharge. 02/10/2017 Appointment: Светлана Garcia WPtel: [facility]5 [facility] (30 min) Complex 02/10/2017 Patient Education: Patient [...] chocolate intake. 01/21/2017 Appointment: Alexandria Bar[facility]Ptel: [phone] [place] (15 min) Moderate 01/21/2017 Patient Education: [...] not improving. 12/18/2016 Appointment: Alexandria Barron [facility]Ptel: [phone] (15 min) Moderate 12/18/2016 Patient Education: Patient [...] specialist 08/26/2016 Appointment: Alexandria Barron [facility]el: [phone] [place] (15 min) Moderate 08/26/2016 Patient Education: Patient Medication Summary Completed 08/26/2016 Care Plan: Referral Order SNOMED-CT : [id number] Pending 08/26/2016 Appointment: Sandra Mcdonald WPtel: [phone] [place] (30 min) Complex 03/11/2016 Visit Plan: Edema - improved-pt has been advised to elevate legs to prevent dependent edema, compression has been recommended to help to naturally decrease peripheral edema. Diuretic use has been discussed and pt has been instructed in appropriate use of such medication as necessary to further attempt to reduce peripheral edema. 02/27/2016 Appointment: Sandra Mcdonald WPtel: [phone] [phone] (30 min) Complex 02/27/2016 Patient Education: Patient Medication Summary Completed 02/27/2016 Appointment: Nurse Visit 02/20/2016 Patient Education: Patient Medication Summary Completed 02/20/2016 Visit Plan: Abrasion of scalp-healing well-continue wound care as directed Laceration left arm-healing well-continue wound care-may leave open to air Contusion of left wgy-duinjuxee-xzggfzhz to monitor Edema-elevate legs-follow up tomorrow for quick check of swelling 02/19/2016 Appointment: Sandra Mcdonald [facility]Ptel: [phone] (15 min) Moderate 02/19/2016 Patient Education: Patient [...] peripheral edema. 02/08/2016 Appointment: Alexandria Barron WPtel: 101 [facility] (15 min) Moderate 02/08/2016 Patient Education: Patient [...] elevation and monitoring of swelling. 07/18/2015 Appointment: Alexandrai Barron WPtel: [phone] [facility] (15 min) Moderate 07/18/2015 Patient Education: Patient [...] not improving. 04/03/2015 Appointment: Alexandria Barron WPtel: [address] [place] [address] (15 min) Moderate 04/03/2015 Patient Education: Patient Medication Summary Completed 04/03/2015 Visit Plan: Rosacea-continue finacea as directed-add metronidazole cream twice daily-call if symptoms do not improve or if any worse. Unfxbnbome-pjpyfau-frjuefxv with wraps-no change in treatment 02/27/2015 Appointment: [...] EGD. 12/05/2014 Appointment: Alexandria Barron WPtel: [phone] [place] [address] [place] ([place]) New Patient 12/05/2014 Patient Education: Patient Medication Summary Completed 12/05/2014 Patient Education: Hypertension Completed 12/05/2014 Referral: Jose A Rios Referral Appointment Requested Referral: Alberta Wilks [address] [facility]66[facility] Referral Appointment Requested Referral: Amarjit Veronica WPtel: [address] Referral Appointment Requested Referral: Jayro Wetzel [...] do not improve or if any worse. Ozntscwgjf-stuoolu-mpbpmzkt with wraps-no change in treatment . Left [...] leave open to air Contusion of left zth-qfxxwclwg-zgefldpp to monitor Edema-elevate legs-follow up tomorrow for [...] Referral to Dr. Wetzel for EGD. . Cellulitis - The patient was instructed [...]
--- OUTSIDE RECORDS SUMMARY | 2018-11-23 15:42 | XMS REPORT | CCD ---
Author Author [facility] Organization [facility] Address [address] [place] [address] Phone Care Team Providers Care [employer] Draftsman Name Role Phone PP Unavailable CCM Unavailable Summary Purpose Interface Exchange Insurance Providers Payer name Policy type / Coverage type Covered libertarian ID Effective Begin Date Effective End Date WPS Medicare Part B Medicare Part B [id number] Unknown Unknown [facility] Medicare Part B [id number] Unknown Unknown Family history Brother Diagnosis Age At Onset Diabetes Unknown Skin cancer Unknown Father Diagnosis Age At Onset Heart disease Unknown Mother Diagnosis Age At Onset advanced age Unknown Hypothyroid Unknown Social History Social History Element Codes Description Effective Dates Living arrangements Unknown Long Term VCV 09/23/2018 Marital status Unknown Single 12/05/2014 Number of children Unknown 0 12/05/2014 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 Quit 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 quit 20-25 [...] Fill Instructions oxycodone 5 mg tablet RxNorm: 8019824 2 Tablet(s) PO BID 201810/27/2018 Active oxycodone 5 mg tablet RxNorm: 5063906 2 Tablet(s) PO BID 201809/27/2018 Inactive oxycodone 5 mg tablet RxNorm: 5771581 2 Tablet(s) PO BID 201708/29/2018 Inactive Lasix 40 mg tablet RxNorm: 604061 1 Tablet(s) PO daily as needed edema if more than 3 pounds weight gain in 48 hours 07/23/2018 11/19/2018 Active oxycodone 5 mg tablet RxNorm: 1466170 2 Tablet(s) PO BID 201707/30/2018 Inactive nadolol 20 mg tablet RxNorm: 710662 1/2 Tablet(s) PO daily No Stop Date Active oxycodone 5 mg tablet RxNorm: 3631114 2 Tablet(s) PO BID 201707/15/2018 Inactive nadolol 20 mg tablet RxNorm: 672376 1 Tablet(s) TAKE 1 TABLET BY MOUTH EVERY DAY 05/25/2018 06/21/2018 Inactive Generic For:*CORGARD 20 MG TABLET 05/21/2018 10:10: 43 AM spironolactone 50 mg tablet RxNorm: 261435 TAKE 1 TABLET BY MOUTH EVERY DAY 05/21/2018 06/03/2018 Inactive Generic For:ALDACTONE 50MG 05/21/2018 10:10:31 AM pramipexole 0.25 mg tablet RxNorm: 287916 TAKE 1 TABLET BY MOUTH TWICE DAILY 05/21/2018 06/03/2018 Inactive Generic For:MIRAPEX 0.25MG TAB 05/21/2018 10:10:48 AM levothyroxine 88 mcg tablet RxNorm: 503131 TAKE 1 TABLET BY MOUTH EVERY DAY WITH A 100MCG TABLET 05/21/2018 06/03/2018 Inactive Generic For:*SYNTHROID 0.088MG TAB 05/21/2018 10:10:11 AM levothyroxine 100 mcg tablet RxNorm: 017347 TAKE 1 TABLET BY MOUTH EVERY DAY , TAKE WITH AN 88 MCG TABLET 05/21/2018 Inactive Generic For:*SYNTHROID 100 MCG TABLET 05/21/2018 10:10:04 AM Vitamin D3 2,000 unit capsule RxNorm: 450440 1 Capsule(s) PO daily 05/21/2018 No Stop Date Active nadolol 20 mg tablet RxNorm: 925405 TAKE 1/2 TABLET BY MOUTH EVERY DAY 05/21/2018 05/24/2018 Inactive Generic For:*CORGARD 20 MG TABLET 05/21/2018 10:10:43 AM Ocuvite tablet RxNorm : 1 Tablet(s) PO BID 05/21/2018 09/22/2018 Inactive oxycodone 5 mg tablet RxNorm: 5920934 1 Tablet(s) PO QID as needed 05/15/2018 06/13/2018 Inactive pramipexole 0.25 mg tablet RxNorm: 593083 1 Tablet(s) PO BID 05/20/2018 Inactive Requip 0.25 mg tablet RxNorm: 308341 1 Tablet(s) PO BID 201705/03/2018 Inactive potassium chloride ER 10 mEq tablet,extended release RxNorm: 323632 1 Tablet(s) PO daily as needed when taking lasix 04/23/2018 08/20/2018 Inactive Lasix 40 mg tablet RxNorm: 696327 1 Tablet(s) PO daily as needed edema if more than 3 pounds weight loss in 48 hours 04/23/2018 07/22/2018 Inactive potassium chloride ER 10 mEq tablet,extended release RxNorm: 655010 1 Tablet(s) PO daily as needed when taking lasix 04/01/2018 04/22/2018 Inactive Lasix 40 mg tablet RxNorm: 244393 1 Tablet(s) PO daily as needed edema 04/01/2018 04/22/2018 Inactive oxycodone 5 mg tablet RxNorm: 4645498 1 Tablet(s) PO QID as needed 03/18/2018 04/16/2018 Inactive levothyroxine 88 mcg tablet RxNorm: 901537 1 Tablet(s) PO daily . Take with 100 mcg tablet. 02/19/2018 05/20/2018 Inactive spironolactone 50 mg tablet RxNorm: 123976 Tablet(s) TAKE 1 TABLET BY MOUTH DAILY 02/19/2018 05/20/2018 Inactive levothyroxine 100 mcg tablet RxNorm: 394095 1 Tablet(s) PO daily . Take with 88 mcg tablet 02/19/2018 02/18/2018 Inactive levothyroxine 88 mcg tablet RxNorm: 868524 1 Tablet(s) PO daily . Take with 100 mcg tablet. 02/19/2018 02/18/2018 Inactive levothyroxine 100 mcg tablet RxNorm: 871169 1 Tablet(s) PO daily . Take with 88 mcg tablet 02/19/2018 05/20/2018 Inactive spironolactone 25 mg tablet RxNorm: 288269 1 Tablet(s) PO daily 02/12/2018 02/18/2018 Inactive pt will let you know when she is ready for the refill oxycodone 10 mg tablet RxNorm: 6838802 1 Tablet(s) PO TID as needed 02/12/2018 03/13/2018 Inactive oxycodone 10 mg tablet RxNorm: 9052849 1 Tablet(s) PO Q6 as needed 01/22/2018 02/11/2018 Inactive spironolactone 50 mg tablet RxNorm: 594296 TAKE 1 TABLET BY MOUTH DAILY 01/05/2018 02/11/2018 Inactive Generic For:ALDACTONE 50MG 01/05/2018 8:27:46 AM Kenalog 40 mg/mL suspension for injection RxNorm: 0798313 1 Milliliter(s) Inj 12/26/2017 12/26/2017 Inactive Zithromax Z-Fransisco 250 mg tablet RxNorm: 721962 1 Tablet(s) PO UD 12/26/2017 12/30/2017 Inactive oxycodone 10 mg tablet RxNorm: 6653450 1 Tablet(s) PO Q6 as needed 11/25/2017 12/24/2017 Inactive nystatin 100,000 unit/gram topical powder RxNorm: 167832 1 Application TOP BID 11/13/2017 09/22/2018 Inactive nystatin 100,000 unit/gram topical cream RxNorm: 540287 Gram(s) TOP QID 11/12/2017 11/18/2017 Inactive nystatin 100,000 unit/gram topical cream RxNorm: 234691 Gram(s) TOP QID 11/12/2017 11/11/2017 Inactive Lasix 20 mg tablet RxNorm: 431694 1 Tablet(s) PO daily as needed edema 11/03/2017 11/07/2017 Inactive potassium chloride ER 10 mEq tablet,extended release RxNorm: 542264 1 Tablet(s) PO daily while on the lasix 11/03/201701/2018 Inactive Keflex 500 mg capsule RxNorm: 648883 1 Capsule(s) PO TID 201711/07/2017 Inactive potassium chloride ER 10 mEq tablet,extended release RxNorm: 289554 1 Tablet(s) PO daily while on the lasix 10/29/2017 Inactive Lasix 20 mg tablet RxNorm: 450739 1 Tablet(s) PO daily as needed edema 10/29/2017 10/31/2017 Inactive oxycodone 10 mg tablet RxNorm: 4105562 1 Tablet(s) PO Q6 as needed 09/29/2017 10/28/2017 Inactive levothyroxine 200 mcg tablet RxNorm: 705888 TAKE 1 TABLET BY MOUTH DAILY 09/01/2017 02/18/2018 Inactive Generic For:*SYNTHROID 0.2MG TAB 09/01/2017 8:36:32 AM Bactrim DS 800 mg-160 mg tablet RxNorm: 067189 1 Tablet(s) PO BID 08/07/2017 08/16/2017 Inactive Bactrim DS 800 mg-160 mg tablet RxNorm: 765303 1 Tablet(s) PO BID 08/07/2017 08/06/2017 Inactive oxycodone 10 mg tablet RxNorm: 1469632 1 Tablet(s) PO Q6 as needed 07/31/2017 08/29/2017 Inactive spironolactone 50 mg tablet RxNorm: 617052 1 Tablet(s) PO daily 06/30/2017 12/26/2017 Inactive Not due for a refill until next month nadolol 20 mg tablet RxNorm: 385195 1/2 Tablet(s) PO daily 11/28/2017 Inactive nadolol 20 mg tablet RxNorm: 399284 1 Tablet(s) PO daily 201609/22/2018 Inactive nadolol 20 mg tablet RxNorm: 658346 1/2 Tablet(s) PO daily 05/21/2017 Inactive oxycodone 10 mg tablet RxNorm: 5647319 1 Tablet(s) PO Q6 as needed 04/01/2017 04/30/2017 Inactive levothyroxine 200 mcg tablet RxNorm: 399263 TAKE 1 TABLET BY MOUTH DAILY 03/10/2017 08/31/2017 Inactive Generic For:*SYNTHROID 0.2MG TAB 03/10/2017 8:49:05 AM potassium chloride ER 10 mEq tablet,extended release RxNorm: 869828 1 Tablet(s) PO daily while on the lasix 02/18/2017 Inactive Lasix 20 mg tablet RxNorm: 098250 1 Tablet(s) PO daily as needed edema 02/18/2017 02/20/2017 Inactive Keflex 500 mg capsule RxNorm: 779855 1 Capsule(s) PO TID 201602/16/2017 Inactive Lasix 20 mg tablet RxNorm: 239656 1 Tablet(s) PO daily 201602/15/2017 Inactive potassium chloride ER 10 mEq tablet,extended release RxNorm: 743141 1 Tablet(s) PO daily while on the lasix 02/14/2017 Inactive Lasix 20 mg tablet RxNorm: 607725 1 Tablet(s) PO daily 201602/13/2017 Inactive potassium chloride ER 10 mEq tablet,extended release RxNorm: 706173 1 Tablet(s) PO daily while on the lasix 02/14/2017 Inactive oxycodone 10 mg tablet RxNorm: 7971765 1 Tablet(s) PO Q6 as needed 02/05/2017 03/06/2017 Inactive minocycline 50 mg tablet RxNorm: 587088 1 Tablet(s) PO Q72H 12/03/2017 Inactive spironolactone 50 mg tablet RxNorm: 646908 1 Tablet(s) PO daily 12/18/2016 06/15/2017 Inactive Not due for a refill until next month oxycodone 10 mg tablet RxNorm: 5707265 1 Tablet(s) PO Q6 as needed 12/05/2016 01/03/2017 Inactive nadolol 20 mg tablet RxNorm: 067477 1 Tablet(s) PO daily 201604/15/2017 Inactive oxycodone 10 mg tablet RxNorm: 9762132 1 Tablet(s) PO Q6 as needed 09/30/2016 10/29/2016 Inactive levothyroxine 200 mcg tablet RxNorm: 068148 TAKE 1 TABLET BY MOUTH DAILY 09/12/2016 03/09/2017 Inactive Generic For:*SYNTHROID 0.2MG TAB 09/12/2016 8:41:27 AM oxycodone 10 mg tablet RxNorm: 2335201 1 Tablet(s) PO Q6 as needed 08/06/2016 09/04/2016 Inactive oxycodone 10 mg tablet RxNorm: 3999413 1 Tablet(s) PO Q6 as needed 06/10/2016 07/09/2016 Inactive oxycodone 10 mg tablet RxNorm: 2769066 1 Tablet(s) PO Q6 as needed 04/05/2016 05/04/2016 Inactive levothyroxine 200 mcg tablet RxNorm: 999749 1 Tablet(s) PO daily 03/14/2016 09/09/2016 Inactive oxycodone 10 mg tablet RxNorm: 0202341 1 Tablet(s) PO Q6 as needed 02/08/2016 03/08/2016 Inactive Kenalog 40 mg/mL suspension for injection RxNorm: 5077818 Milliliter(s) Inj 11/16/2015 11/16/2015 Inactive Zithromax Z-Fransisco 250 mg tablet RxNorm: 818819 1 Tablet(s) PO UD 11/16/2015 11/20/2015 Inactive zpack, take probiotic while on abx oxycodone 10 mg tablet RxNorm: 6811550 1 Tablet(s) PO Q6 as needed 11/16/2015 02/07/2016 Inactive ceftriaxone 500 mg solution for injection RxNorm: 3205954 Inj 11/16/2015 11/16/2015 Inactive oxycodone 10 mg tablet RxNorm: 8910464 1 Tablet(s) PO Q6 as needed 10/11/2015 11/15/2015 Inactive levothyroxine 200 mcg tablet RxNorm: 493181 1 Tablet(s) PO daily 09/14/2015 03/11/2016 Inactive oxycodone 10 mg tablet RxNorm: 8276802 1 Tablet(s) PO Q6 as needed 08/10/2015 10/10/2015 Inactive Keflex 500 mg capsule RxNorm: 864527 1 Capsule(s) PO TID 201407/03/2015 Inactive Keflex 500 mg capsule RxNorm: 688101 1 Capsule(s) PO TID 201406/25/2015 Inactive oxycodone 10 mg tablet RxNorm: 2057460 1 Tablet(s) PO Q6 as needed 04/03/2015 08/09/2015 Inactive oxycodone 10 mg tablet RxNorm: 9214448 1 Tablet(s) PO Q6 as needed 02/14/2015 04/02/2015 Inactive Keflex 500 mg capsule RxNorm: 694992 1 Capsule(s) PO TID 201401/22/2015 Inactive Culturelle 10 billion cell capsule RxNorm: 581540 1 Capsule(s) PO daily 01/16/2015 02/14/2015 Inactive Dulcolax Stool Softener (docusate) 100 mg capsule RxNorm: 5666324 1 Capsule(s) PO daily 12/05/2014 02/11/2018 Inactive [SAVINGS FOR NON-COVERED DRUGS -- BIN:[id number], PCN: [id number], Group: [id number], ID# [id number], Questions: . THIS IS NOT INSURANCE.] Claritin 10 mg tablet RxNorm: 161583 1 Tablet(s) PO daily No Start Date Active Miralax 17 gram/dose oral powder RxNorm: 960965 17 Gram(s) PO QHS No Start Date Active multivitamin tablet RxNorm: 1 Tablet(s) PO daily No Start Date Active Colace 100 mg capsule RxNorm: 2721196 1 Capsule(s) PO BID No Start Date Active PreserVision AREDS oral RxNorm: 797557 oral No Start Date Active Restasis 0.05 % eye drops in a dropperette RxNorm: 428097 1 Drop(s) OPH BID No Start Date Active Vitamin D3 2,000 unit capsule RxNorm: 217746 1 Capsule(s) PO daily No Start Date 05/20/2018 Inactive minocycline 50 mg tablet RxNorm: 415134 1 Tablet(s) PO QHS No Start Date 01/20/2017 Inactive nadolol 20 mg tablet RxNorm: 103710 1 Tablet(s) PO daily No Start Date 11/05/2016 Inactive nadolol 20 mg tablet RxNorm: 179430 1 Tablet(s) PO daily No Start Date 11/05/2016 Inactive Ocuvite tablet RxNorm : 1 Tablet(s) PO BID No Start Date 05/20/2018 Inactive oxycodone 10 mg tablet RxNorm: 6274454 1 Tablet(s) PO Q6 as needed No Start Date 02/13/2015 Inactive Dulcolax Stool Softener (docusate) 100 mg capsule RxNorm: 6589039 1 Capsule(s) PO BID No Start Date 12/04/2014 Inactive Multivitamin 50 Plus tablet RxNorm: 1 Tablet(s) PO QAM No Start Date 02/11/2018 Inactive Finacea 15 % topical gel RxNorm: 8438055 TOP No Start Date 05/24/2018 Inactive Synthroid 200mcg Oral RxNorm: oral No Start Date 09/13/2015 Inactive spironolactone 50 mg tablet RxNorm: 520505 1 Tablet(s) PO daily No Start Date 12/17/2016 Inactive spironolactone 50 mg tablet RxNorm: 985428 1 Tablet(s) PO daily No Start Date 02/11/2018 Inactive Medication Administered Medication Codes Instructions Start Date Status Kenalog 40 mg/mL suspension for injection RxNorm: 2882047 1Milliliter 12/26/2017 No longer Active ceftriaxone 500 mg solution for injection RxNorm: 6683698 11/16/2015 No longer Active Kenalog 40 mg/mL suspension for injection RxNorm: 3957706 Milliliter 11/16/2015 No longer Active Immunizations Vaccine [...] Visit Effective Dates Notes hypertension 09/23/2018 cough 07/23/2018 cough 07/07/2018 Hospital Follow Up [...] Item Item Code Result Date Free T4 Kmj080 FREE T4 1.92 ng/dL 04/24/2018 Tsh Ord6 [...] 31.1 pg 04/24/2018 Cbc With Differential Ord2 [place]% 13.0 % 04/24/2018 Cbc With Differential Ord2 [...] 1.00 K/ul 04/24/2018 Cbc With Differential Ord2 [place] ABS# 0.4 K/ul 04/24/2018 Cbc With Differential Ord2 Eos ABS# 0.0 K/ul 04/24/2018 Cbc With Differential Ord2 Baso ABS# 0.0 K/ul 04/24/2018 Comp Metabolic Pkc226 NA 138 mEq/L 04/24/2018 Comp Metabolic Izu339 K 3.9 mEq/L 04/24/2018 Comp Metabolic Zcc706 CL 97 mEq/L 04/24/2018 Comp Metabolic Fcl206 CO2 32.0 mEq/L 04/24/2018 Comp Metabolic Yik476 ANION GAP 13 04/24/2018 Comp Metabolic Tuy832 GLUCOSE 194 mg/dL 04/24/2018 Comp Metabolic Oip516 Creat 0.8 mg/dL 04/24/2018 Comp Metabolic Rgs209 eGFR 70 ml/min/1.73m2 04/24/2018 Comp Metabolic Gwd532 BUN 20 mg/dL 04/24/2018 Comp Metabolic Rkj249 B/C Ratio 24.1 Ratio 04/24/2018 Comp Metabolic Ckx656 CALCIUM 9.4 mg/dL 04/24/2018 Comp Metabolic Zxo787 ALK PHOS 110 U/L 04/24/2018 Comp Metabolic Axj255 AST(SGOT) 33 U/L 04/24/2018 Comp Metabolic Xfo422 ALT(SGPT) 16 U/L 04/24/2018 Comp Metabolic Ssr511 BILI T 1.8 mg/dL 04/24/2018 Comp Metabolic Wuw491 ALBUMIN 4.0 g/dL 04/24/2018 Comp Metabolic Ziz651 TPRO 5.7 g/dL 04/24/2018 Comp Metabolic Sgq000 GLOB 1.7 g/dL 04/24/2018 Comp Metabolic Ofw871 A/G Ratio 2.3 Ratio 04/24/2018 Comp Metabolic Mzw718 Osmo 284 mOsmo 04/24/2018 Tsh Ord6 TSH (3rd IS) 0.07 uIU/mL 02/13/2018 Free T4 Ymc035 FREE T4 1.85 ng/dL 02/13/2018 %Hba1C Lye522 % HbA1c 87836-2 5.9 % 01/21/2017 %Hba1C Pjv275 Gluc Ave 123 mg/dL 01/21/2017 Comp Metabolic Pau721 NA 136 mEq/L 01/21/2017 Comp Metabolic Osf078 K 4.3 mEq/L 01/21/2017 Comp Metabolic Oms950 CL 99 mEq/L 01/21/2017 Comp Metabolic Lfs652 CO2 30.0 mEq/L 01/21/2017 Comp Metabolic Qvf198 ANION GAP 11 01/21/2017 Comp Metabolic Nye711 GLUCOSE 234 mg/dL 01/21/2017 Comp Metabolic Wgy032 Creat 0.5 mg/dL 01/21/2017 Comp Metabolic Tos156 eGFR 115 ml/min/1.73m2 01/21/2017 Comp Metabolic Jwo485 BUN 10 mg/dL 01/21/2017 Comp Metabolic Bpy538 B/C Ratio 18.5 Ratio 01/21/2017 Comp Metabolic Jyt904 CALCIUM 8.8 mg/dL 01/21/2017 Comp Metabolic Cvz104 ALK PHOS 74 U/L 01/21/2017 Comp Metabolic Piw656 AST(SGOT) 28 U/L 01/21/2017 Comp Metabolic Qcd098 ALT(SGPT) 15 U/L 01/21/2017 Comp Metabolic Rsc943 BILI T 1.1 mg/dL 01/21/2017 Comp Metabolic Szy263 ALBUMIN 3.8 g/dL 01/21/2017 Comp Metabolic Ohr204 TPRO 5.8 g/dL 01/21/2017 Comp Metabolic Pyf527 GLOB 2.0 g/dL 01/21/2017 Comp Metabolic Juw935 A/G Ratio 1.9 Ratio 01/21/2017 Comp Metabolic Ydy923 Osmo 279 mOsmo 01/21/2017 Tsh Ord6 hTSH II 0.80 uIU/mL 04/03/2015 Bili D Ord93 BILI D 0.1 mg/dL 04/03/2015 Bili D Ord93 BILI I 0.9 mg/dL 04/03/2015 Free T4 Jlq853 FREE T4 1.27 ng/dL 04/03/2015 Cbc With [...] Ord2 RDW 15.6 % 04/03/2015 Comp Metabolic Qid596 NA 136 mEq/L 04/03/2015 Comp Metabolic Dcb124 K 4.3 mEq/L 04/03/2015 Comp Metabolic Hfh906 CL 99 mEq/L 04/03/2015 Comp Metabolic Dax789 CO2 29.0 mEq/L 04/03/2015 Comp Metabolic Nhd830 ANION GAP 12 04/03/2015 Comp Metabolic Oze986 GLUCOSE 120 mg/dL 04/03/2015 Comp Metabolic Hou660 Creat 0.5 mg/dL 04/03/2015 Comp Metabolic Kte075 eGFR 118 ml/min/1.73m2 04/03/2015 Comp Metabolic Ilu931 BUN 11 mg/dL 04/03/2015 Comp Metabolic Mmb053 B/C Ratio 20.8 Ratio 04/03/2015 Comp Metabolic Yxw209 CALCIUM 9.3 mg/dL 04/03/2015 Comp Metabolic Its489 ALK PHOS 61 U/L 04/03/2015 Comp Metabolic Zfs011 AST(SGOT) 28 U/L 04/03/2015 Comp Metabolic Jhz020 ALT(SGPT) 16 U/L 04/03/2015 Comp Metabolic Emh907 BILI T 1.0 mg/dL 04/03/2015 Comp Metabolic Fqd567 ALBUMIN 4.1 g/dL 04/03/2015 Comp Metabolic Dyo358 TPRO 6.1 g/dL 04/03/2015 Comp Metabolic Kdd285 GLOB 2.0 g/dL 04/03/2015 Comp Metabolic Mdv240 A/G Ratio 2.1 Ratio 04/03/2015 Comp Metabolic Mgz122 Osmo 273 mOsmo 04/03/2015 Review of Systems [...] Eyes eye pain 09/23/2018 Constitutional recent illness 07/23/2018 Constitutional No chills [...] FLU VACC PRSV FREE INC ANTIG CPT-4: 51347 04/23/2018 TRIAMCINOLONE ACET INJ NOS CPT-4: J3301 12/26/2017 ADMIN INFLUENZA VIRUS VAC CPT-4: G0008 04/16/2017 FLU VACC PRSV FREE INC ANTIG CPT-4: 62067 04/16/2017 TRIAMCINOLONE ACET INJ NOS CPT-4: J3301 11/16/2015 ROCEPHIN, PER 250 MG CPT-4: J0696 11/16/2015 Vital Signs Date Vital 09/23/2018 Blood Pressure 1: 120/60 Code : 8480-6 Heart Rate 1: 75 bpm Height: 5'1" SpO2: 93% Weight: 07/23/2018 Blood Pressure 1: 104/66 Code [...] Code : 8480-6 BMI: 23.6 Code : 58545-4 Heart Rate 1 : 59 bpm Height: 5'1" Respiratory Rate: 18 bpm SpO2: 99% Temperature: 37.0 (C) / 98.6 (F ) Weight: 125 lbs 04/23/2018 Blood Pressure 2: 118/62 Code : 8480-6 BMI: 22.3 Code : 52386-2 Heart Rate 1 : 73 bpm Height: 5'1" SpO2: 97% Weight: 118 lbs 04/01/2018 Blood Pressure 1: 136/72 Code : 8480-6 BMI: 26.6 Code : 45880-6 Heart Rate 1 : 75 bpm Height: 5'1" SpO2: 98% Weight: 141 lbs 03/18/2018 Blood Pressure 1: 132/62 Code : 8480-6 Heart Rate 1: 61 bpm Height: 5'1" SpO2: 96% Weight: 03/09/2018 Blood Pressure 1: 122/60 Code : 8480-6 Heart Rate 1: 65 bpm Height: 5'1" SpO2: 98% Weight: 02/12/2018 Blood Pressure 1: 100/68 Code : 8480-6 BMI: 24.3 Code : 90639-7 Heart Rate 1 : 68 bpm Height: 5'1" SpO2: 96% Weight: 128 lbs 13 oz 12/26/2017 Blood Pressure 1: 126/68 Code : 8480-6 BMI: 26.7 Code : 99074-1 Heart Rate 1 : 66 bpm Height: 5'1" SpO2: 98% Temperature: 36.8 (C) / 98.2 (F) Weight: 141 lbs 8 oz 12/04/2017 Blood Pressure 1: 132/76 Code : 8480-6 BMI: 26.5 Code : 28286-6 Heart Rate 1 : 73 bpm Height: 5'1" SpO2: 96% Weight: 140 lbs 11/13/2017 Blood Pressure 1: 126/62 Code : 8480-6 Heart Rate 1: 69 bpm Height: 5'1" SpO2: 96% Weight: 11/06/2017 Blood Pressure 1: 142/84 Code : 8480-6 BMI: 25.7 Code : 95866-9 Heart Rate 1 : 78 bpm Height: 5'1" SpO2: 95% Temperature: 36.9 (C) / 98.5 (F) Weight: 136 lbs 10/29/2017 Blood Pressure 1: 132/68 Code : 8480-6 BMI: 26.8 Code : 27900-6 Heart Rate 1 : 70 bpm Height: 5'1" SpO2: 98% Weight: 142 lbs 09/04/2017 Blood Pressure 1: 132/74 Code : 8480-6 BMI: 25.9 Code : 57474-5 Heart Rate 1 : 68 bpm Height: 5'1" SpO2: 96% Weight: 137 lbs 08/08/2017 Blood Pressure 1: 118/72 Code : 8480-6 BMI: 26.6 Code : 81921-8 Heart Rate 1 : 68 bpm Height: 5'1" SpO2: 95% Weight: 141 lbs 05/29/2017 Blood Pressure 1: 142/78 Code : 8480-6 BMI: 26.3 Code : 25019-3 Heart Rate 1 : 65 bpm Height: 5'1" SpO2: 95% Weight: 139 lbs 04/16/2017 Blood Pressure 1: 136/62 Code : 8480-6 BMI: 27.4 Code : 32307-6 Heart Rate 1 : 38 bpm Height: 5'1" SpO2: 98% Weight: 145 lbs 02/10/2017 Blood Pressure 1: 124/70 Code : 8480-6 BMI: 27.4 Code : 56056-9 Heart Rate 1 : 70 bpm Height: 5'1" SpO2: 96% Weight: 145 lbs 01/21/2017 Blood Pressure 1: 120/70 Code : 8480-6 BMI: 27.2 Code : 96855-8 Heart Rate 1 : 65 bpm Height: 5'1" SpO2: 95% Weight: 144 lbs 12/18/2016 Blood Pressure 1: 122/74 Code : 8480-6 BMI: 27.4 Code : 63009-4 Heart Rate 1 : 66 bpm Height: 5'1" SpO2: 97% Weight: 145 lbs 08/26/2016 Blood Pressure 1: 110/64 Code : 8480-6 BMI: 28.0 Code : 10299-4 Heart Rate 1 : 67 bpm Height: 5'1" SpO2: 97% Weight: 148 lbs 02/27/2016 Blood Pressure 1: 126/74 Code : 8480-6 Heart Rate 1: 67 bpm Height: 5'1" SpO2: 97% 02/19/2016 Blood Pressure 1: 130/80 Code : 8480-6 BMI: 28.2 Code : 71450-9 Heart Rate 1 : 74 bpm Height: 5'1" SpO2: 96% Weight: 149 lbs 02/08/2016 Blood Pressure 1: 122/78 Code : 8480-6 BMI: 28.2 Code : 91466-1 Heart Rate 1 : 63 bpm Height: 5'1" SpO2: 96% Weight: 149 lbs 11/16/2015 Blood Pressure 1: 128/70 Code : 8480-6 BMI: 27.8 Code : 93092-1 Heart Rate 1 : 64 bpm Height: 5'1" SpO2: 97% Weight: 147 lbs 07/18/2015 Blood Pressure 1: 110/60 Code : 8480-6 BMI: 28.5 Code : 00218-0 Heart Rate 1 : 61 bpm Height: 5'1" SpO2: 97% Weight: 151 lbs 06/27/2015 Blood Pressure 1: 122/60 Code : 8480-6 BMI: 28.9 Code : 81000-4 Heart Rate 1 : 63 bpm Height: 5'1" SpO2: 95% Weight: 153 lbs 06/19/2015 Blood Pressure 1: 120/78 Code : 8480-6 Heart Rate 1: 68 bpm SpO2: 96% Weight: 154 lbs 04/03/2015 Blood Pressure 1: 128/68 Code : 8480-6 BMI: 29.1 Code : 64537-3 Heart Rate 1 : 70 bpm Height: 5'1" SpO2: 97% Weight: 154 lbs 02/27/2015 Blood Pressure 1: 122/84 Code : 8480-6 BMI: 29.5 Code : 14647-1 Heart Rate 1 : 67 bpm Height: 5'1" SpO2: 95% Weight: 156 lbs 01/26/2015 Blood Pressure 1: 132/70 Code : 8480-6 BMI: 30.2 Code : 63993-3 Heart Rate 1 : 76 bpm Height: 5'1" Weight: 160 lbs 01/16/2015 Blood Pressure 1: 140/70 Code : 8480-6 BMI: 30.0 Code : 36493-3 Heart Rate 1 : 78 bpm Height: 5'1" Respiratory Rate: 20 bpm Weight: 159 lbs 12/05/2014 Blood Pressure 1: 138/78 Code : 8480-6 BMI: 30.8 Code : 70666-8 Heart Rate 1 : 76 bpm Height: [...] in readings 2018 -Checked at [facility] Pertinent Findings edema 09/23/2018 None Quality [...] eye discharge 09/23/2018 None Location in the lung 07/23/2018 None [...] ill contacts 07/23/2018 she is in a [facility] [employer] recumbent position 07/23/2018 None Pertinent Findings [...] ill contacts 07/07/2018 she is in a [facility] recumbent position 07/07/2018 None Hospital Follow [...] data Encounters Encounter Performer Location Codes Date ([id number]) [id number] EST. PATIENT, LEVEL IV Diagnosis: Essential (primary) hypertension[ICD10: I10] Diagnosis: Localized edema[ICD10: R60.0] Diagnosis: Atrophy of thyroid (acquired)[ICD10: E03.4] [facility] CPT-4: 95863 09/23/2018 ([id number]) [id number] EST. PATIENT, LEVEL IV Diagnosis: Essential (primary) hypertension[ICD10: I10] Diagnosis: Lymphedema, not elsewhere classified[ICD10: I89.0] Diagnosis: Other ascites[ICD10: R18.8] [facility] CPT- 4: 30244 07/23/2018 ([id number]) [id number] EST. PATIENT, LEVEL IV Diagnosis: Essential (primary) hypertension[ICD10: I10] Diagnosis: Atrophy of thyroid (acquired)[ICD10: E03.4] Diagnosis: Lymphedema, not elsewhere classified[ICD10: I89.0] [facility] CPT-4: 23479 07/07/2018 ([id number]) [id number] EST. PATIENT, LEVEL IV Diagnosis: Essential (primary) hypertension[ICD10: I10] Diagnosis: Localized edema[ICD10: R60.0] [facility] CPT- 4: 21469 06/22/2018 ([id number]) [id number] EST. PATIENT, LEVEL IV Diagnosis: Atrophy of thyroid (acquired)[ICD10: E03.4] Diagnosis: Essential (primary) hypertension[ICD10: I10] Diagnosis: Other chronic pain[ICD10: G89.29] Diagnosis: Pain in left knee[ICD10: M25.562] Diagnosis: Low back pain[ICD10: M54.5] [facility] CPT- 4: 21650 05/25/2018 ([id number]) [id number] EST. 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 PATIENT, LEVEL IV Diagnosis: Essential (primary) hypertension[ICD10: I10] Diagnosis: Low back pain[ICD10: M54.5] Diagnosis: Localized edema[ICD10: R60.0] Diagnosis: Other chronic pain[ICD10: G89.29] Diagnosis: Obstructive sleep apnea (adult) (pediatric)[ICD10: G47.33] [facility] CPT-4: 65590 04/01/2018 ([id number]) [id number] EST. PATIENT, LEVEL IV Diagnosis: Essential (primary) hypertension[ICD10: I10] Diagnosis: Other chronic pain[ICD10: G89.29] Diagnosis: Unsteadiness on feet[ICD10: R26.81] [facility] MD, [place] HEALTH CPT-4: 58472 03/18/2018 ([id number]) 26840 EST. PATIENT, LEVEL IV Diagnosis: Low back pain[ICD10: M54.5] Diagnosis: Localized edema[ICD10: R60.0] Diagnosis: Essential (primary) hypertension[ICD10: I10] Diagnosis: Other chronic pain[ICD10: G89.29] Diagnosis: Pressure ulcer of left buttock, stage 1[ICD10: L89.321] Diagnosis: Obstructive sleep apnea (adult) (pediatric)[ICD10: G47.33] Alexandria Barron MD , [facility] CPT-4: 05696 03/09/2018 ([id number]) 80981 EST. PATIENT, LEVEL IV Diagnosis: Atrophy of thyroid (acquired)[ICD10: E03.4] Diagnosis: Essential (primary) hypertension[ICD10: I10] Diagnosis: Localized edema[ICD10: R60.0] Diagnosis: Other chronic pain[ICD10: G89.29] Alexandria Barron MD, [facility] CPT-4: 08312 02/12/2018 ([id number]) 99076 EST. PATIENT, LEVEL III Diagnosis: Cough[ICD10: R05] Diagnosis: Acute bronchitis, unspecified[ICD10: J20.9] Sandra Barron MD, [facility] CPT-4: 35822 12/26/2017 ([id number]) 36053 EST. PATIENT, LEVEL IV Diagnosis: Essential (primary) hypertension[ICD10: I10] Diagnosis: Other specified noninfective disorders of lymphatic vessels and lymph nodes[ICD10: I89.8] Diagnosis: Atrophy of thyroid (acquired)[ICD10: E03.4] Alexandria Barron MD, [facility] CPT-4: 36049 12/04/2017 60646 EST. PATIENT, LEVEL III Diagnosis: Candidiasis of skin and nail[ICD10: B37.2] Светлана Barron MD, [facility] CPT-4: 32936 11/13/2017 ([id number]) 99196 EST. PATIENT, LEVEL III Diagnosis: Lymphedema, not elsewhere classified[ICD10: I89.0] Diagnosis: Low back pain[ICD10: M54.5] Diagnosis: Localized edema[ICD10: R60.0] Alexandria Barron MD, [facility] CPT- 4: 29863 11/06/2017 ([id number]) Miscellaneous no charge Diagnosis: Localized edema[ICD10: R60.0] Diagnosis: Cellulitis of right lower limb[ICD10: L03.115] Diagnosis: Cellulitis of left lower limb[ICD10: L03.116] Светлана Barron MD, [facility] CPT-4: 56752 11/03/2017 17937 EST. PATIENT, LEVEL III Diagnosis: Cellulitis of left lower limb[ICD10: L03.116] Diagnosis: Localized edema[ICD10: R60.0] Светлана Barron MD, [facility] CPT-4 : 36236 10/29/2017 ([id number]) 92384 EST. 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 PATIENT, LEVEL III Diagnosis: Other viral warts[ICD10: B07.8] Diagnosis: Other skin changes[ICD10: R23.8] Alexandria Barron MD, [facility] CPT-4: 87380 08/08/2017 ([id number]) 96820 EST. PATIENT, LEVEL IV Diagnosis: Essential (primary) hypertension[ICD10: I10] Diagnosis: Atrophy of thyroid (acquired)[ICD10: E03.4] Diagnosis: Low back pain[ICD10: M54.5] Alexandria Barron MD, [facility] CPT- 4: 46334 05/29/2017 ([id number]) 97258 EST. PATIENT, LEVEL IV Diagnosis: Essential (primary) hypertension[ICD10: I10] Diagnosis: Atrophy of thyroid (acquired)[ICD10: E03.4] Diagnosis: Encounter for immunization[ICD10: Z23] Diagnosis: Sick sinus syndrome[ICD10: I49.5] Alexandria Barron MD, [facility] CPT-4: 88805 04/16/2017 ([id number]) Miscellaneous no charge Diagnosis: Cellulitis of left lower limb[ICD10: L03.116] Светлана Barron MD, [facility] CPT-4: 39476 02/24/2017 66612 EST. PATIENT, LEVEL III Diagnosis: Cellulitis of left lower limb[ICD10: L03.116] Diagnosis: Cellulitis of right lower limb[ICD10: L03.115] Светлана Barron MD, [facility] CPT-4: 63816 02/10/2017 ([id number]) 78247 EST. PATIENT, LEVEL IV Diagnosis: Essential (primary) hypertension[ICD10: I10] Diagnosis: Other abnormal glucose[ICD10: R73.09] Diagnosis: Localized edema[ICD10: R60.0] Alexandria Barron MD, [facility] CPT- 4: 86789 01/21/2017 81554 EST. PATIENT, LEVEL IV Diagnosis: Essential (primary) hypertension[ICD10: I10] Diagnosis: Pain in left knee[ICD10: M25.562] Diagnosis: Atrophy of thyroid (acquired)[ICD10: E03.4] Alexandria Barron MD, [facility] CPT-4: 64789 12/18/2016 ([id number]) 95747 EST. PATIENT, LEVEL IV Diagnosis: Essential (primary) hypertension[ICD10: I10] Diagnosis: Pain in left knee[ICD10: M25.562] Diagnosis: Other instability, left knee[ICD10: M25.362] Diagnosis: Other chronic pain[ICD10: G89.29] Alexandria Barron MD, [facility] CPT-4: 64048 08/26/2016 ([id number]) 68332 EST. PATIENT, LEVEL III Diagnosis: Localized edema[ICD10: R60.0] Sandra Barron MD, [facility] CPT-4: 48462 02/27/2016 ([id number]) Miscellaneous no charge Diagnosis: Lymphedema, not elsewhere classified[ICD10: I89.0] Sandra Barron MD, [facility] CPT-4: 72534 02/20/2016 ([id number]) 30117 EST. PATIENT, LEVEL III Diagnosis: Contusion of left lower leg, subsequent encounter[ICD10: S80.12XD] Diagnosis: Abrasion of scalp, subsequent encounter[ICD10: S00.01XD] Diagnosis: Laceration without foreign body of left upper arm, subsequent encounter[ICD10: S41.112D] Diagnosis: Localized edema[ICD10: R60.0] Sandra Barron MD, [facility] CPT-4: 51441 02/19/2016 ([id number]) Miscellaneous no charge Diagnosis: Laceration without foreign body of left upper arm, subsequent encounter[ICD10: S41.112D] Diagnosis: Abrasion of scalp, subsequent encounter[ICD10: S00.01XD] Sandra Barron MD , [facility] CPT-4: 88655 02/12/2016 ([id number]) 62712 EST. PATIENT, LEVEL IV Diagnosis: Contusion of left lower leg, initial encounter[ICD10: S80.12XA] Diagnosis: Abrasion of scalp, initial encounter[ICD10: S00.01XA] Diagnosis: Laceration without foreign body of left upper arm, initial encounter[ ICD10: S41.112A] Diagnosis: Localized edema[ICD10: R60.0] Diagnosis: Hypothyroidism, unspecified[ICD10: E03.9] Diagnosis: Essential (primary) hypertension[ICD10: I10] Alexandria Barron MD, [facility] CPT-4: 65932 02/08/2016 ([id number]) 04988 EST. PATIENT, LEVEL IV Diagnosis: Cough[ICD10: R05] Diagnosis: Low back pain[ICD10: M54.5] Diagnosis: Allergic rhinitis due to pollen[ICD10: J30.1] Diagnosis: Acute upper respiratory infection, unspecified[ICD10: J06.9] Diagnosis: Acute bronchitis, unspecified[ICD10: J20.9] Sandra Barron MD, [facility] CPT-4: 11156 11/16/2015 ([id number]) 17658 EST. PATIENT, LEVEL IV Diagnosis: Hypothyroidism, unspecified[ICD10: E03.9] Diagnosis: Lymphedema, not elsewhere classified[ICD10: I89.0] Alexandria Barron MD, [facility] CPT-4: 69615 07/18/2015 11417 EST. PATIENT, LEVEL IV Diagnosis: Contusion of left lower leg, subsequent encounter[ICD10: S80.12XD] Diagnosis: Cellulitis of left lower limb[ICD10: L03.116] Светлана Barron MD, [facility] CPT-4: 49930 06/27/2015 89577 EST. PATIENT, LEVEL III Diagnosis: Contusion of left lower leg, initial encounter[ICD10: S80.12XA] Diagnosis: Cellulitis of left lower limb[ICD10: L03.116] Светлана Barron MD, [facility] CPT-4: 06686 06/19/2015 ([id number]) 70989 EST. 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 PATIENT, LEVEL III Diagnosis: Rosacea, acne[ICD9: 695.3] Diagnosis: Lymphedema[ICD9: 457.1] Sandra Barron MD, [facility] CPT-4: 34405 02/27/2015 ([id number]) 81456 EST. PATIENT, LEVEL III Diagnosis: Right leg swelling[ICD9: 729.81] Alexandria Barron MD, [facility] CPT-4: 65688 01/26/2015 ([id number]) 41243 EST. PATIENT, LEVEL III Diagnosis: CELLULITIS OF LEG[ICD9: 682.6] Mary Ann Barron MD, [facility] CPT-4 : 28053 01/16/2015 ([id number]) OFFICE VISIT, NEW - LEVEL 4 Diagnosis: Back pain[ICD9: 724.5] Diagnosis: Lymphedema[ICD9: 457.1] Diagnosis: Sacroiliitis[ICD9: 720.2] Diagnosis: Chronic pain[ICD9: 338.29] Diagnosis: HYPOTHYROIDISM[ICD9: 244.9] Diagnosis: Dysphagia[ICD9: 787.20] Alexandria Barron MD, [facility] CPT-4: 37503 12/05/2014 Plan of Care Planned Activity Notes [...] wraps. 09/23/2018 App[facility]ment[phone] (15 min) Moderate 09/23/2018 Patient Education: Patient Medication Summary Completed 09/23/2018 Appointment: Светлана Garcia [facility]Ptel[facility] [phone] [facility] (30 min) Complex 09/14/2018 Visit Plan: Hypertension - well controlled [...] with compression 07/23/2018 Appointment: [phone] (15 min) Moderate 07/23/2018 Patient Education: [...] while seated. 07/07/2018 Appointment: Alexandria Barron WPtel: [facility] (15 min) Moderate 07/07/2018 Patient Education: Patient [...] edema. 06/22/2018 Appointment: Alexandria Barron WPtel: [phone] [facility] (15 min) Moderate 06/22/2018 Patient Education: Patient Medication Summary Completed 06/22/2018 Appointment: Alexandria Barron WPtel: [facility]5 [facility] (15 min) Moderate 05/27/2018 Visit Plan: Hypertension [...] over-medication. 05/25/2018 Appointment: Alexandria Bar[facility]el[phone] [facility] (15 min) Moderate 05/25/2018 Patient Education: Patient Medication Summary Completed 05/25/2018 Patient Education: Back Pain Completed 05/25/2018 Appointment: Светлана Garcia WPtel: [phone] [facility] [address] (30 min) Complex 05/15/2018 Visit Plan: Hypertension [...] in clinic. 04/23/2018 Appointment: Alexandria [phone] [facility] (15 min) Moderate 04/23/2018 Patient Education: [...] request. 04/01/2018 Appointment: Alexandria [phone] (15 min) Moderate 04/01/2018 Patient Education: [...] well. 03/18/2018 Appointment: Alexandria Bar[facility]el[phone] [facility] [place] (15 min) Moderate 03/18/2018 Patient Education: Patient [...] on buttock. 03/09/2018 Appointment: Alexandria Barron WPtel: [facility] [place] (15 min) Moderate 03/09/2018 Patient Education: Patient [...] her report. 02/12/2018 Appointment: Alexandria Barron WPtel: [facility] [place] (15 min) Moderate 02/12/2018 Patient Education: Patient Medication Summary Completed 02/12/2018 Visit Plan: Bronchitis- Pt advised to increase fluids, vitamin C. Discussed natural and expected course of this diagnosis and need to alert me if symptoms do not follow expected course, or if any worse. RX sent to patient's pharmacy. 12/26/2017 Appointment: Sandra Mcdonald WPtel: [facility]7 [phone] (15 min) Moderate 12/26/2017 Patient Education: Patient [...] when seated. 12/04/2017 Appointment: Alexandria Barron WPtel: [facility]2 [facility] (30 min) Complex 12/04/2017 Patient Education: Patient Medication Summary Completed 12/04/2017 Visit Plan: Yeast rash - The patient was instructed in appropriate care. The patient was instructed to use the ointment as per RX. The patient is to call for any change in symptoms, increase in size of the lesion, increase in pain, worsening redness, warmth, discharge. 11/13/2017 Appointment: Светлана Garcia WPtel: [facility]3 [facility] (30 min) Complex 11/13/2017 Patient Education: Patient [...] wound care. 11/06/2017 Appointment: Alexandria Barron WPtel: [facility]1 [facility] (30 min) Complex 11/06/2017 Patient Education: Patient [...] peripheral edema. 10/29/2017 Appointment: Светлана Garcia WPtel: [address] [place], [place] [id number] (15 min) Moderate 10/29/2017 Patient Education: Patient [...] pennsaid sample 09/04/2017 Appointment: Alexandria Barron WPtel: [facility]2 [facility] [place] (15 min) Moderate 09/04/2017 Patient Education: Patient Medication Summary Completed 09/04/2017 Appointment: Светлана Garcia WPtel: [facility]1 [facility] (15 min) Moderate 08/18/2017 Visit Plan: Skin lesion on face - lesion removed with scalpel and dressed with medihoney, pt to RTC in 10 days for treatment of the lesion if not fully resolved. 08/08/2017 Appointment: Alexandria Barron WPtel: [phone] [facility] (30 min) Complex 08/08/2017 Patient Education: Patient [...] medication. 05/29/2017 Appointment: Alexandria Bar[facility]Ptel[phone] (15 min) Moderate 05/29/2017 Patient Education: Patient Medication Summary Completed 05/29/2017 App[facility]ment: Alexandria Bar[facility]Ptel[phone] [facility] (15 min) Moderate 04/30/2017 [facility]: [facility]ks [facility] [facility] Patient informed. Referral info faxed. Completed 04/28/2017 [...] of control. 04/16/2017 Appointment: Alexandria Barron WPtel: [facility]6 [facility] (15 min) Moderate 04/16/2017 Patient Education: Patient Medication Summary Completed 04/16/2017 Care Plan: Referral Order SNOMED-CT : [id number] Pending 04/16/2017 Visit Plan: Wound healed - no further treatment at this time. 02/24/2017 Appointment: Nurse Visit 02/24/2017 Patient Education: Patient Medication Summary Completed 02/24/2017 Appointment: Nurse Visit 02/18/2017 Appointment: Светлана Garcia WPtel: [facility]4 [facility] [place] (30 min) Complex 02/14/2017 Visit Plan: Cellulitis - The patient was instructed in appropriate wound care. The patient was instructed to use the antibiotic as per RX. The patient is to call for any change in symptoms, increase in size of the lesion, increase in pain, worsening redness, warmth, discharge. 02/10/2017 Appointment: Светлана Garcia WPtel: [facility]9 [facility] (30 min) Complex 02/10/2017 Patient Education: Patient [...] chocolate intake. 01/21/2017 Appointment: Alexandria Barron WPtel: [facility]9 [facility] [place] (15 min) Moderate 01/21/2017 Patient Education: [...] improving. 12/18/2016 Appointment: Alexandria Barron WPtel: [phone] [facility] (15 min) Moderate 12/18/2016 Patient Education: Patient [...] to specialist 08/26/2016 Appointment: Alexandria Barron WPtel: [facility]4 [facility] [place] (15 min) Moderate 08/26/2016 Patient Education: Patient Medication Summary Completed 08/26/2016 Care Plan: Referral Order SNOMED-CT : [id number] Pending 08/26/2016 Appointment: Sandra Mcdonald WPtel: [facility]9 [facility] [place] (30 min) Complex 03/11/2016 Visit Plan: Edema - improved-pt has been advised to elevate legs to prevent dependent edema, compression has been recommended to help to naturally decrease peripheral edema. Diuretic use has been discussed and pt has been instructed in appropriate use of such medication as necessary to further attempt to reduce peripheral edema. 02/27/2016 Appointment: Sandra Mcdonald WPtel: [facility]8 [phone] [place] (30 min) Complex 02/27/2016 Patient Education: Patient Medication Summary Completed 02/27/2016 Appointment: Nurse Visit 02/20/2016 Patient Education: Patient Medication Summary Completed 02/20/2016 Visit Plan: Abrasion of scalp-healing well-continue wound care as directed Laceration left arm-healing well-continue wound care-may leave open to air Contusion of left hau-klyinuvjw-wvvluhpr to monitor Edema-elevate legs-follow up tomorrow for quick check of swelling 02/19/2016 Appointment: Sandra Mcdonald WPtel: [phone] [phone] (15 min) Moderate 02/19/2016 Patient Education: Patient [...] peripheral edema. 02/08/2016 Appointment: Alexandria Bar[facility]Ptel[phone] (15 min) Moderate 02/08/2016 Patient Education: [...] of swelling. 07/18/2015 Appointment: Alexandria Barron WPtel: [facility] (15 min) Moderate 07/18/2015 Patient Education: [...] not improving. 04/03/2015 Appointment: Alexandria Barron WPtel: [facility] (15 min) Moderate 04/03/2015 Patient Education: Patient Medication Summary Completed 04/03/2015 Visit Plan: Rosacea-continue finacea as directed-add metronidazole cream twice daily-call if symptoms do not improve or if any worse. Mkcmibrkjx-dsuednk-xrznefwe with wraps-no change in treatment 02/27/2015 Appointment: [...] EGD. 12/05/2014 Appointment: Alexandria Barron [facility]Ptel[phone] [facility] [place] ([place] New Patient 12/05/2014 Patient Education: Patient Medication Summary Completed 12/05/2014 Patient Education: Hypertension Completed 12/05/2014 Referral: Jose A Rios Referral Appointment Requested Referral: [facility]ks [facility] [facility] [place] Referral Appointment Requested Referral: Amarjit Veronica WPtel: [address] [facility] Referral Appointment Requested Referral: Jayro Wetzel [...] do not improve or if any worse. Tuedpvagaf-rsbzabr-raprshlv with wraps-no change in treatment . Left [...] leave open to air Contusion of left gjc-kundbseka-rbovxjnl to monitor Edema-elevate legs-follow up tomorrow for [...]
--- OUTSIDE RECORDS SUMMARY | 2018-11-23 15:46 | XMS REPORT | CCD ---
Author Author [facility] Organization [facility] Address [address] [place] [address] Phone Care Team Providers Care Receiver Stocker Name Role Phone PP Unavailable CCM Unavailable Summary Purpose Interface Exchange Insurance Providers Payer name Policy type / Coverage type Covered republican ID Effective Begin Date Effective End Date WPS Medicare Part B Medicare Part B [id number] Unknown Unknown [facility] Medicare Part B [id number] Unknown Unknown Family history Brother Diagnosis Age At Onset Diabetes Unknown Skin cancer Unknown Father Diagnosis Age At Onset Heart disease Unknown Mother Diagnosis Age At Onset advanced age Unknown Hypothyroid Unknown Social History Social History Element Codes Description Effective Dates Living arrangements Unknown Halfway VCV 09/23/2018 Marital status Unknown Single 12/05/2014 Number of children Unknown 0 12/05/2014 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 Quit 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 quit 20-25 [...] Fill Instructions oxycodone 5 mg tablet RxNorm: 2551825 2 Tablet(s) PO BID 201810/14/2018 Active oxycodone 5 mg tablet RxNorm: 3968956 2 Tablet(s) PO BID 201708/29/2018 Inactive Lasix 40 mg tablet RxNorm: 226906 1 Tablet(s) PO daily as needed edema if more than 3 pounds weight gain in 48 hours 07/23/2018 11/19/2018 Active oxycodone 5 mg tablet RxNorm: 0437164 2 Tablet(s) PO BID 201707/30/2018 Inactive nadolol 20 mg tablet RxNorm: 829653 1/2 Tablet(s) PO daily No Stop Date Active oxycodone 5 mg tablet RxNorm: 8412052 2 Tablet(s) PO BID 201707/15/2018 Inactive nadolol 20 mg tablet RxNorm: 928678 1 Tablet(s) TAKE 1 TABLET BY MOUTH EVERY DAY 05/25/2018 06/21/2018 Inactive Generic For:*CORGARD 20 MG TABLET 05/21/2018 10:10: 43 AM spironolactone 50 mg tablet RxNorm: 019828 TAKE 1 TABLET BY MOUTH EVERY DAY 05/21/2018 06/03/2018 Inactive Generic For:ALDACTONE 50MG 05/21/2018 10:10:31 AM pramipexole 0.25 mg tablet RxNorm: 890483 TAKE 1 TABLET BY MOUTH TWICE DAILY 05/21/2018 06/03/2018 Inactive Generic For:MIRAPEX 0.25MG TAB 05/21/2018 10:10:48 AM levothyroxine 88 mcg tablet RxNorm: 652239 TAKE 1 TABLET BY MOUTH EVERY DAY WITH A 100MCG TABLET 05/21/2018 06/03/2018 Inactive Generic For:*SYNTHROID 0.088MG TAB 05/21/2018 10:10:11 AM levothyroxine 100 mcg tablet RxNorm: 734853 TAKE 1 TABLET BY MOUTH EVERY DAY , TAKE WITH AN 88 MCG TABLET 05/21/2018 Inactive Generic For:*SYNTHROID 100 MCG TABLET 05/21/2018 10:10:04 AM Vitamin D3 2,000 unit capsule RxNorm: 158367 1 Capsule(s) PO daily 05/21/2018 No Stop Date Active nadolol 20 mg tablet RxNorm: 187552 TAKE 1/2 TABLET BY MOUTH EVERY DAY 05/21/2018 05/24/2018 Inactive Generic For:*CORGARD 20 MG TABLET 05/21/2018 10:10:43 AM Ocuvite tablet RxNorm : 1 Tablet(s) PO BID 05/21/2018 09/22/2018 Inactive oxycodone 5 mg tablet RxNorm: 1709150 1 Tablet(s) PO QID as needed 05/15/2018 06/13/2018 Inactive pramipexole 0.25 mg tablet RxNorm: 211026 1 Tablet(s) PO BID 05/20/2018 Inactive Requip 0.25 mg tablet RxNorm: 950094 1 Tablet(s) PO BID 201705/03/2018 Inactive potassium chloride ER 10 mEq tablet,extended release RxNorm: 959922 1 Tablet(s) PO daily as needed when taking lasix 04/23/2018 08/20/2018 Inactive Lasix 40 mg tablet RxNorm: 934472 1 Tablet(s) PO daily as needed edema if more than 3 pounds weight loss in 48 hours 04/23/2018 07/22/2018 Inactive potassium chloride ER 10 mEq tablet,extended release RxNorm: 847448 1 Tablet(s) PO daily as needed when taking lasix 04/01/2018 04/22/2018 Inactive Lasix 40 mg tablet RxNorm: 863195 1 Tablet(s) PO daily as needed edema 04/01/2018 04/22/2018 Inactive oxycodone 5 mg tablet RxNorm: 9593115 1 Tablet(s) PO QID as needed 03/18/2018 04/16/2018 Inactive levothyroxine 88 mcg tablet RxNorm: 278420 1 Tablet(s) PO daily . Take with 100 mcg tablet. 02/19/2018 05/20/2018 Inactive spironolactone 50 mg tablet RxNorm: 009829 Tablet(s) TAKE 1 TABLET BY MOUTH DAILY 02/19/2018 05/20/2018 Inactive levothyroxine 100 mcg tablet RxNorm: 564445 1 Tablet(s) PO daily . Take with 88 mcg tablet 02/19/2018 02/18/2018 Inactive levothyroxine 88 mcg tablet RxNorm: 462755 1 Tablet(s) PO daily . Take with 100 mcg tablet. 02/19/2018 02/18/2018 Inactive levothyroxine 100 mcg tablet RxNorm: 609087 1 Tablet(s) PO daily . Take with 88 mcg tablet 02/19/2018 05/20/2018 Inactive spironolactone 25 mg tablet RxNorm: 294807 1 Tablet(s) PO daily 02/12/2018 02/18/2018 Inactive pt will let you know when she is ready for the refill oxycodone 10 mg tablet RxNorm: 4979278 1 Tablet(s) PO TID as needed 02/12/2018 03/13/2018 Inactive oxycodone 10 mg tablet RxNorm: 1076993 1 Tablet(s) PO Q6 as needed 01/22/2018 02/11/2018 Inactive spironolactone 50 mg tablet RxNorm: 561613 TAKE 1 TABLET BY MOUTH DAILY 01/05/2018 02/11/2018 Inactive Generic For:ALDACTONE 50MG 01/05/2018 8:27:46 AM Kenalog 40 mg/mL suspension for injection RxNorm: 8450991 1 Milliliter(s) Inj 12/26/2017 12/26/2017 Inactive Zithromax Z-Fransisco 250 mg tablet RxNorm: 555021 1 Tablet(s) PO UD 12/26/2017 12/30/2017 Inactive oxycodone 10 mg tablet RxNorm: 5878397 1 Tablet(s) PO Q6 as needed 11/25/2017 12/24/2017 Inactive nystatin 100,000 unit/gram topical powder RxNorm: 144575 1 Application TOP BID 11/13/2017 09/22/2018 Inactive nystatin 100,000 unit/gram topical cream RxNorm: 249206 Gram(s) TOP QID 11/12/2017 11/18/2017 Inactive nystatin 100,000 unit/gram topical cream RxNorm: 960257 Gram(s) TOP QID 11/12/2017 11/11/2017 Inactive Lasix 20 mg tablet RxNorm: 156727 1 Tablet(s) PO daily as needed edema 11/03/2017 11/07/2017 Inactive potassium chloride ER 10 mEq tablet,extended release RxNorm: 808274 1 Tablet(s) PO daily while on the lasix 11/03/201701/2018 Inactive Keflex 500 mg capsule RxNorm: 295783 1 Capsule(s) PO TID 201711/07/2017 Inactive potassium chloride ER 10 mEq tablet,extended release RxNorm: 257086 1 Tablet(s) PO daily while on the lasix 10/29/2017 Inactive Lasix 20 mg tablet RxNorm: 126756 1 Tablet(s) PO daily as needed edema 10/29/2017 10/31/2017 Inactive oxycodone 10 mg tablet RxNorm: 1412201 1 Tablet(s) PO Q6 as needed 09/29/2017 10/28/2017 Inactive levothyroxine 200 mcg tablet RxNorm: 639106 TAKE 1 TABLET BY MOUTH DAILY 09/01/2017 02/18/2018 Inactive Generic For:*SYNTHROID 0.2MG TAB 09/01/2017 8:36:32 AM Bactrim DS 800 mg-160 mg tablet RxNorm: 342427 1 Tablet(s) PO BID 08/07/2017 08/16/2017 Inactive Bactrim DS 800 mg-160 mg tablet RxNorm: 284075 1 Tablet(s) PO BID 08/07/2017 08/06/2017 Inactive oxycodone 10 mg tablet RxNorm: 7380408 1 Tablet(s) PO Q6 as needed 07/31/2017 08/29/2017 Inactive spironolactone 50 mg tablet RxNorm: 008753 1 Tablet(s) PO daily 06/30/2017 12/26/2017 Inactive Not due for a refill until next month nadolol 20 mg tablet RxNorm: 435270 1/2 Tablet(s) PO daily 11/28/2017 Inactive nadolol 20 mg tablet RxNorm: 083571 1 Tablet(s) PO daily 201609/22/2018 Inactive nadolol 20 mg tablet RxNorm: 535722 1/2 Tablet(s) PO daily 05/21/2017 Inactive oxycodone 10 mg tablet RxNorm: 2964052 1 Tablet(s) PO Q6 as needed 04/01/2017 04/30/2017 Inactive levothyroxine 200 mcg tablet RxNorm: 573224 TAKE 1 TABLET BY MOUTH DAILY 03/10/2017 08/31/2017 Inactive Generic For:*SYNTHROID 0.2MG TAB 03/10/2017 8:49:05 AM potassium chloride ER 10 mEq tablet,extended release RxNorm: 076869 1 Tablet(s) PO daily while on the lasix 02/18/2017 Inactive Lasix 20 mg tablet RxNorm: 854425 1 Tablet(s) PO daily as needed edema 02/18/2017 02/20/2017 Inactive Keflex 500 mg capsule RxNorm: 940857 1 Capsule(s) PO TID 201602/16/2017 Inactive Lasix 20 mg tablet RxNorm: 552461 1 Tablet(s) PO daily 201602/15/2017 Inactive potassium chloride ER 10 mEq tablet,extended release RxNorm: 985743 1 Tablet(s) PO daily while on the lasix 02/14/2017 Inactive Lasix 20 mg tablet RxNorm: 553070 1 Tablet(s) PO daily 201602/13/2017 Inactive potassium chloride ER 10 mEq tablet,extended release RxNorm: 622894 1 Tablet(s) PO daily while on the lasix 02/14/2017 Inactive oxycodone 10 mg tablet RxNorm: 3132750 1 Tablet(s) PO Q6 as needed 02/05/2017 03/06/2017 Inactive minocycline 50 mg tablet RxNorm: 662268 1 Tablet(s) PO Q72H 12/03/2017 Inactive spironolactone 50 mg tablet RxNorm: 494003 1 Tablet(s) PO daily 12/18/2016 06/15/2017 Inactive Not due for a refill until next month oxycodone 10 mg tablet RxNorm: 0195593 1 Tablet(s) PO Q6 as needed 12/05/2016 01/03/2017 Inactive nadolol 20 mg tablet RxNorm: 301900 1 Tablet(s) PO daily 201604/15/2017 Inactive oxycodone 10 mg tablet RxNorm: 0424681 1 Tablet(s) PO Q6 as needed 09/30/2016 10/29/2016 Inactive levothyroxine 200 mcg tablet RxNorm: 379813 TAKE 1 TABLET BY MOUTH DAILY 09/12/2016 03/09/2017 Inactive Generic For:*SYNTHROID 0.2MG TAB 09/12/2016 8:41:27 AM oxycodone 10 mg tablet RxNorm: 7154249 1 Tablet(s) PO Q6 as needed 08/06/2016 09/04/2016 Inactive oxycodone 10 mg tablet RxNorm: 5917807 1 Tablet(s) PO Q6 as needed 06/10/2016 07/09/2016 Inactive oxycodone 10 mg tablet RxNorm: 9704504 1 Tablet(s) PO Q6 as needed 04/05/2016 05/04/2016 Inactive levothyroxine 200 mcg tablet RxNorm: 465187 1 Tablet(s) PO daily 03/14/2016 09/09/2016 Inactive oxycodone 10 mg tablet RxNorm: 9879664 1 Tablet(s) PO Q6 as needed 02/08/2016 03/08/2016 Inactive Kenalog 40 mg/mL suspension for injection RxNorm: 1131825 Milliliter(s) Inj 11/16/2015 11/16/2015 Inactive Zithromax Z-Fransisco 250 mg tablet RxNorm: 459823 1 Tablet(s) PO UD 11/16/2015 11/20/2015 Inactive zpack, take probiotic while on abx oxycodone 10 mg tablet RxNorm: 3773221 1 Tablet(s) PO Q6 as needed 11/16/2015 02/07/2016 Inactive ceftriaxone 500 mg solution for injection RxNorm: 2593407 Inj 11/16/2015 11/16/2015 Inactive oxycodone 10 mg tablet RxNorm: 1976424 1 Tablet(s) PO Q6 as needed 10/11/2015 11/15/2015 Inactive levothyroxine 200 mcg tablet RxNorm: 287886 1 Tablet(s) PO daily 09/14/2015 03/11/2016 Inactive oxycodone 10 mg tablet RxNorm: 8031053 1 Tablet(s) PO Q6 as needed 08/10/2015 10/10/2015 Inactive Keflex 500 mg capsule RxNorm: 474114 1 Capsule(s) PO TID 201407/03/2015 Inactive Keflex 500 mg capsule RxNorm: 934627 1 Capsule(s) PO TID 201406/25/2015 Inactive oxycodone 10 mg tablet RxNorm: 5424019 1 Tablet(s) PO Q6 as needed 04/03/2015 08/09/2015 Inactive oxycodone 10 mg tablet RxNorm: 3516729 1 Tablet(s) PO Q6 as needed 02/14/2015 04/02/2015 Inactive Keflex 500 mg capsule RxNorm: 534602 1 Capsule(s) PO TID 201401/22/2015 Inactive Culturelle 10 billion cell capsule RxNorm: 835190 1 Capsule(s) PO daily 01/16/2015 02/14/2015 Inactive Dulcolax Stool Softener (docusate) 100 mg capsule RxNorm: 6921991 1 Capsule(s) PO daily 12/05/2014 02/11/2018 Inactive [SAVINGS FOR NON-COVERED DRUGS -- BIN:[id number], PCN: [id number], Group: [id number], ID# [id number], Questions: . THIS IS NOT INSURANCE.] Claritin 10 mg tablet RxNorm: 691555 1 Tablet(s) PO daily No Start Date Active Miralax 17 gram/dose oral powder RxNorm: 919884 17 Gram(s) PO QHS No Start Date Active multivitamin tablet RxNorm: 1 Tablet(s) PO daily No Start Date Active Colace 100 mg capsule RxNorm: 3167862 1 Capsule(s) PO BID No Start Date Active PreserVision AREDS oral RxNorm: 110055 oral No Start Date Active Restasis 0.05 % eye drops in a dropperette RxNorm: 024079 1 Drop(s) OPH BID No Start Date Active Vitamin D3 2,000 unit capsule RxNorm: 633873 1 Capsule(s) PO daily No Start Date 05/20/2018 Inactive minocycline 50 mg tablet RxNorm: 912942 1 Tablet(s) PO QHS No Start Date 01/20/2017 Inactive nadolol 20 mg tablet RxNorm: 645025 1 Tablet(s) PO daily No Start Date 11/05/2016 Inactive nadolol 20 mg tablet RxNorm: 471031 1 Tablet(s) PO daily No Start Date 11/05/2016 Inactive Ocuvite tablet RxNorm : 1 Tablet(s) PO BID No Start Date 05/20/2018 Inactive oxycodone 10 mg tablet RxNorm: 0505082 1 Tablet(s) PO Q6 as needed No Start Date 02/13/2015 Inactive Dulcolax Stool Softener (docusate) 100 mg capsule RxNorm: 9430301 1 Capsule(s) PO BID No Start Date 12/04/2014 Inactive Multivitamin 50 Plus tablet RxNorm: 1 Tablet(s) PO QAM No Start Date 02/11/2018 Inactive Finacea 15 % topical gel RxNorm: 4942410 TOP No Start Date 05/24/2018 Inactive Synthroid 200mcg Oral RxNorm: oral No Start Date 09/13/2015 Inactive spironolactone 50 mg tablet RxNorm: 887362 1 Tablet(s) PO daily No Start Date 12/17/2016 Inactive spironolactone 50 mg tablet RxNorm: 365230 1 Tablet(s) PO daily No Start Date 02/11/2018 Inactive Medication Administered Medication Codes Instructions Start Date Status Kenalog 40 mg/mL suspension for injection RxNorm: 9502931 1Milliliter 12/26/2017 No longer Active ceftriaxone 500 mg solution for injection RxNorm: 2997739 11/16/2015 No longer Active Kenalog 40 mg/mL suspension for injection RxNorm: 0468278 Milliliter 11/16/2015 No longer Active Immunizations Vaccine [...] Item Item Code Result Date Free T4 Jkm419 FREE T4 1.92 ng/dL 04/24/2018 Tsh Ord6 [...] 31.1 pg 04/24/2018 Cbc With Differential Ord2 Burke% 13.0 % 04/24/2018 Cbc With Differential Ord2 [...] 1.00 K/ul 04/24/2018 Cbc With Differential Ord2 Burke ABS# 0.4 K/ul 04/24/2018 Cbc With Differential Ord2 Eos ABS# 0.0 K/ul 04/24/2018 Cbc With Differential Ord2 Baso ABS# 0.0 K/ul 04/24/2018 Comp Metabolic Eem739 NA 138 mEq/L 04/24/2018 Comp Metabolic Vsk460 K 3.9 mEq/L 04/24/2018 Comp Metabolic Mht138 CL 97 mEq/L 04/24/2018 Comp Metabolic Zxj876 CO2 32.0 mEq/L 04/24/2018 Comp Metabolic Jad885 ANION GAP 13 04/24/2018 Comp Metabolic Ewo055 GLUCOSE 194 mg/dL 04/24/2018 Comp Metabolic Kjq291 Creat 0.8 mg/dL 04/24/2018 Comp Metabolic Crz993 eGFR 70 ml/min/1.73m2 04/24/2018 Comp Metabolic Wls183 BUN 20 mg/dL 04/24/2018 Comp Metabolic Sir844 B/C Ratio 24.1 Ratio 04/24/2018 Comp Metabolic Hsy197 CALCIUM 9.4 mg/dL 04/24/2018 Comp Metabolic Dca730 ALK PHOS 110 U/L 04/24/2018 Comp Metabolic Qwz790 AST(SGOT) 33 U/L 04/24/2018 Comp Metabolic Vpt584 ALT(SGPT) 16 U/L 04/24/2018 Comp Metabolic Ujz327 BILI T 1.8 mg/dL 04/24/2018 Comp Metabolic Iyw461 ALBUMIN 4.0 g/dL 04/24/2018 Comp Metabolic Rac463 TPRO 5.7 g/dL 04/24/2018 Comp Metabolic Vje030 GLOB 1.7 g/dL 04/24/2018 Comp Metabolic Vwj435 A/G Ratio 2.3 Ratio 04/24/2018 Comp Metabolic Cbs021 Osmo 284 mOsmo 04/24/2018 Tsh Ord6 TSH (3rd IS) 0.07 uIU/mL 02/13/2018 Free T4 Lvd644 FREE T4 1.85 ng/dL 02/13/2018 %Hba1C Wfg344 % HbA1c 67095-7 5.9 % 01/21/2017 %Hba1C Egu052 Gluc Ave 123 mg/dL 01/21/2017 Comp Metabolic Vls901 NA 136 mEq/L 01/21/2017 Comp Metabolic Jkz922 K 4.3 mEq/L 01/21/2017 Comp Metabolic Gyl454 CL 99 mEq/L 01/21/2017 Comp Metabolic Mkv976 CO2 30.0 mEq/L 01/21/2017 Comp Metabolic Gph568 ANION GAP 11 01/21/2017 Comp Metabolic Qlo685 GLUCOSE 234 mg/dL 01/21/2017 Comp Metabolic Lfv180 Creat 0.5 mg/dL 01/21/2017 Comp Metabolic Cxt705 eGFR 115 ml/min/1.73m2 01/21/2017 Comp Metabolic Coj306 BUN 10 mg/dL 01/21/2017 Comp Metabolic Ghr222 B/C Ratio 18.5 Ratio 01/21/2017 Comp Metabolic Umz186 CALCIUM 8.8 mg/dL 01/21/2017 Comp Metabolic Ehq167 ALK PHOS 74 U/L 01/21/2017 Comp Metabolic Xgj548 AST(SGOT) 28 U/L 01/21/2017 Comp Metabolic Svi811 ALT(SGPT) 15 U/L 01/21/2017 Comp Metabolic Ooo999 BILI T 1.1 mg/dL 01/21/2017 Comp Metabolic Wda508 ALBUMIN 3.8 g/dL 01/21/2017 Comp Metabolic Xmz302 TPRO 5.8 g/dL 01/21/2017 Comp Metabolic Hyg494 GLOB 2.0 g/dL 01/21/2017 Comp Metabolic Fgx334 A/G Ratio 1.9 Ratio 01/21/2017 Comp Metabolic Xna888 Osmo 279 mOsmo 01/21/2017 Tsh Ord6 hTSH II 0.80 uIU/mL 04/03/2015 Bili D Ord93 BILI D 0.1 mg/dL 04/03/2015 Bili D Ord93 BILI I 0.9 mg/dL 04/03/2015 Free T4 Otl297 FREE T4 1.27 ng/dL 04/03/2015 Cbc With [...] Ord2 RDW 15.6 % 04/03/2015 Comp Metabolic Gwo484 NA 136 mEq/L 04/03/2015 Comp Metabolic Pjz989 K 4.3 mEq/L 04/03/2015 Comp Metabolic Xzo195 CL 99 mEq/L 04/03/2015 Comp Metabolic Bzt340 CO2 29.0 mEq/L 04/03/2015 Comp Metabolic Yzv241 ANION GAP 12 04/03/2015 Comp Metabolic Ccu044 GLUCOSE 120 mg/dL 04/03/2015 Comp Metabolic Ylp764 Creat 0.5 mg/dL 04/03/2015 Comp Metabolic Rgv652 eGFR 118 ml/min/1.73m2 04/03/2015 Comp Metabolic Kwk433 BUN 11 mg/dL 04/03/2015 Comp Metabolic Wpo388 B/C Ratio 20.8 Ratio 04/03/2015 Comp Metabolic Pnj490 CALCIUM 9.3 mg/dL 04/03/2015 Comp Metabolic Ywd652 ALK PHOS 61 U/L 04/03/2015 Comp Metabolic Krk034 AST(SGOT) 28 U/L 04/03/2015 Comp Metabolic End774 ALT(SGPT) 16 U/L 04/03/2015 Comp Metabolic Avr759 BILI T 1.0 mg/dL 04/03/2015 Comp Metabolic Nju740 ALBUMIN 4.1 g/dL 04/03/2015 Comp Metabolic Xlz144 TPRO 6.1 g/dL 04/03/2015 Comp Metabolic Hah983 GLOB 2.0 g/dL 04/03/2015 Comp Metabolic Xzn611 A/G Ratio 2.1 Ratio 04/03/2015 Comp Metabolic Mih005 Osmo 273 mOsmo 04/03/2015 Review of Systems [...] appearance 07/07/2018 None Full Exam - General 1995 Ears/Nose/Throat lips/teeth/gingiva Overall: benign lips 07/07/2018 None [...] hygiene 02/12/2018 None Full Exam - General 1995 Eyes conjunctiva /eyelids Overall: conjunctiva clear 02/12/2018 [...] FLU VACC PRSV FREE INC ANTIG CPT-4: 89992 04/23/2018 TRIAMCINOLONE ACET INJ NOS CPT-4: J3301 12/26/2017 ADMIN INFLUENZA VIRUS VAC CPT-4: G0008 04/16/2017 FLU VACC PRSV FREE INC ANTIG CPT-4: 74646 04/16/2017 TRIAMCINOLONE ACET INJ NOS CPT-4: J3301 [...] Code : 8480-6 BMI: 23.6 Code : 37417-4 Heart Rate 1 : 59 bpm Height: 5'1" Respiratory Rate: 18 bpm SpO2: 99% Temperature: 37.0 (C) / 98.6 (F ) Weight: 125 lbs 04/23/2018 Blood Pressure 2: 118/62 Code : 8480-6 BMI: 22.3 Code : 54666-0 Heart Rate 1 : 73 bpm Height: 5'1" SpO2: 97% Weight: 118 lbs 04/01/2018 Blood Pressure 1: 136/72 Code : 8480-6 BMI: 26.6 Code : 91722-0 Heart Rate 1 : 75 bpm Height: 5'1" SpO2: 98% Weight: 141 lbs 03/18/2018 Blood Pressure 1: 132/62 Code : 8480-6 Heart Rate 1: 61 bpm Height: 5'1" SpO2: 96% Weight: 03/09/2018 Blood Pressure 1: 122/60 Code : 8480-6 Heart Rate 1: 65 bpm Height: 5'1" SpO2: 98% Weight: 02/12/2018 Blood Pressure 1: 100/68 Code : 8480-6 BMI: 24.3 Code : 75221-3 Heart Rate 1 : 68 bpm Height: 5'1" SpO2: 96% Weight: 128 lbs 13 oz 12/26/2017 Blood Pressure 1: 126/68 Code : 8480-6 BMI: 26.7 Code : 72167-4 Heart Rate 1 : 66 bpm Height: 5'1" SpO2: 98% Temperature: 36.8 (C) / 98.2 (F) Weight: 141 lbs 8 oz 12/04/2017 Blood Pressure 1: 132/76 Code : 8480-6 BMI: 26.5 Code : 61480-6 Heart Rate 1 : 73 bpm Height: 5'1" SpO2: 96% Weight: 140 lbs 11/13/2017 Blood Pressure 1: 126/62 Code : 8480-6 Heart Rate 1: 69 bpm Height: 5'1" SpO2: 96% Weight: 11/06/2017 Blood Pressure 1: 142/84 Code : 8480-6 BMI: 25.7 Code : 17006-7 Heart Rate 1 : 78 bpm Height: 5'1" SpO2: 95% Temperature: 36.9 (C) / 98.5 (F) Weight: 136 lbs 10/29/2017 Blood Pressure 1: 132/68 Code : 8480-6 BMI: 26.8 Code : 55096-5 Heart Rate 1 : 70 bpm Height: 5'1" SpO2: 98% Weight: 142 lbs 09/04/2017 Blood Pressure 1: 132/74 Code : 8480-6 BMI: 25.9 Code : 62430-8 Heart Rate 1 : 68 bpm Height: 5'1" SpO2: 96% Weight: 137 lbs 08/08/2017 Blood Pressure 1: 118/72 Code : 8480-6 BMI: 26.6 Code : 62645-6 Heart Rate 1 : 68 bpm Height: 5'1" SpO2: 95% Weight: 141 lbs 05/29/2017 Blood Pressure 1: 142/78 Code : 8480-6 BMI: 26.3 Code : 42657-2 Heart Rate 1 : 65 bpm Height: 5'1" SpO2: 95% Weight: 139 lbs 04/16/2017 Blood Pressure 1: 136/62 Code : 8480-6 BMI: 27.4 Code : 40923-2 Heart Rate 1 : 38 bpm Height: 5'1" SpO2: 98% Weight: 145 lbs 02/10/2017 Blood Pressure 1: 124/70 Code : 8480-6 BMI: 27.4 Code : 49556-7 Heart Rate 1 : 70 bpm Height: 5'1" SpO2: 96% Weight: 145 lbs 01/21/2017 Blood Pressure 1: 120/70 Code : 8480-6 BMI: 27.2 Code : 15892-9 Heart Rate 1 : 65 bpm Height: 5'1" SpO2: 95% Weight: 144 lbs 12/18/2016 Blood Pressure 1: 122/74 Code : 8480-6 BMI: 27.4 Code : 97049-7 Heart Rate 1 : 66 bpm Height: 5'1" SpO2: 97% Weight: 145 lbs 08/26/2016 Blood Pressure 1: 110/64 Code : 8480-6 BMI: 28.0 Code : 16304-4 Heart Rate 1 : 67 bpm Height: 5'1" SpO2: 97% Weight: 148 lbs 02/27/2016 Blood Pressure 1: 126/74 Code : 8480-6 Heart Rate 1: 67 bpm Height: 5'1" SpO2: 97% 02/19/2016 Blood Pressure 1: 130/80 Code : 8480-6 BMI: 28.2 Code : 39397-4 Heart Rate 1 : 74 bpm Height: 5'1" SpO2: 96% Weight: 149 lbs 02/08/2016 Blood Pressure 1: 122/78 Code : 8480-6 BMI: 28.2 Code : 26064-2 Heart Rate 1 : 63 bpm Height: 5'1" SpO2: 96% Weight: 149 lbs 11/16/2015 Blood Pressure 1: 128/70 Code : 8480-6 BMI: 27.8 Code : 34070-0 Heart Rate 1 : 64 bpm Height: 5'1" SpO2: 97% Weight: 147 lbs 07/18/2015 Blood Pressure 1: 110/60 Code : 8480-6 BMI: 28.5 Code : 71832-9 Heart Rate 1 : 61 bpm Height: 5'1" SpO2: 97% Weight: 151 lbs 06/27/2015 Blood Pressure 1: 122/60 Code : 8480-6 BMI: 28.9 Code : 50877-9 Heart Rate 1 : 63 bpm Height: 5'1" SpO2: 95% Weight: 153 lbs 06/19/2015 Blood Pressure 1: 120/78 Code : 8480-6 Heart Rate 1: 68 bpm SpO2: 96% Weight: 154 lbs 04/03/2015 Blood Pressure 1: 128/68 Code : 8480-6 BMI: 29.1 Code : 78108-6 Heart Rate 1 : 70 bpm Height: 5'1" SpO2: 97% Weight: 154 lbs 02/27/2015 Blood Pressure 1: 122/84 Code : 8480-6 BMI: 29.5 Code : 75058-9 Heart Rate 1 : 67 bpm Height: 5'1" SpO2: 95% Weight: 156 lbs 01/26/2015 Blood Pressure 1: 132/70 Code : 8480-6 BMI: 30.2 Code : 61816-1 Heart Rate 1 : 76 bpm Height: 5'1" Weight: 160 lbs 01/16/2015 Blood Pressure 1: 140/70 Code : 8480-6 BMI: 30.0 Code : 96444-6 Heart Rate 1 : 78 bpm Height: 5'1" Respiratory Rate: 20 bpm Weight: 159 lbs 12/05/2014 Blood Pressure 1: 138/78 Code : 8480-6 BMI: 30.8 Code : 81578-2 Heart Rate 1 : 76 bpm Height: [...] ill contacts 07/23/2018 she is in a custodial [employer] recumbent position 07/23/2018 None Pertinent Findings [...] ill contacts 07/07/2018 she is in a custodial [employer] recumbent position 07/07/2018 None Hospital Follow [...] data Encounters Encounter Performer Location Codes Date () 06876 EST. PATIENT, LEVEL IV Diagnosis: Essential (primary) hypertension[ICD10: I10] Diagnosis: Localized edema[ICD10: R60.0] Diagnosis: Atrophy of thyroid (acquired)[ICD10: E03.4] Alexandria Barron MD, [facility] CPT-4: 50413 09/23/2018 ([id number]) 90214 EST. PATIENT, LEVEL IV Diagnosis: Essential (primary) hypertension[ICD10: I10] Diagnosis: Lymphedema, not elsewhere classified[ICD10: I89.0] Diagnosis: Other ascites[ICD10: R18.8] [facility] CPT- 4: 56298 07/23/2018 ([id number]) 34275 EST. PATIENT, LEVEL IV Diagnosis: Essential (primary) hypertension[ICD10: I10] Diagnosis: Atrophy of thyroid (acquired)[ICD10: E03.4] Diagnosis: Lymphedema, not elsewhere classified[ICD10: I89.0] Alexandria Barron MD, [facility] CPT-4: 90383 07/07/2018 ([id number]) 61009 EST. PATIENT, LEVEL IV Diagnosis: Essential (primary) hypertension[ICD10: I10] Diagnosis: Localized edema[ICD10: R60.0] Alexandria Barron MD, [facility] CPT- 4: 12020 06/22/2018 ([id number]) 28565 EST. 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 PATIENT, LEVEL IV Diagnosis: Essential (primary) hypertension[ICD10: I10] Diagnosis: Low back pain[ICD10: M54.5] Diagnosis: Localized edema[ICD10: R60.0] Diagnosis: Other chronic pain[ICD10: G89.29] Diagnosis: Obstructive sleep apnea (adult) (pediatric)[ICD10: G47.33] [facility] CPT-4: 26362 04/01/2018 ([id number]) [id number] EST. PATIENT, LEVEL IV Diagnosis: Essential (primary) hypertension[ICD10: I10] Diagnosis: Other chronic pain[ICD10: G89.29] Diagnosis: Unsteadiness on feet[ICD10: R26.81] Alexandria Barron MD, [facility] CPT-4: 74294 03/18/2018 ([id number]) [id number] EST. PATIENT, LEVEL IV Diagnosis: Low back pain[ICD10: M54.5] Diagnosis: Localized edema[ICD10: R60.0] Diagnosis: Essential (primary) hypertension[ICD10: I10] Diagnosis: Other chronic pain[ICD10: G89.29] Diagnosis: Pressure ulcer of left buttock, stage 1[ICD10: L89.321] Diagnosis: Obstructive sleep apnea (adult) (pediatric)[ICD10: G47.33] Alexandria Barron MD , [facility] CPT-4: 07655 03/09/2018 ([id number]) 37404 EST. PATIENT, LEVEL IV Diagnosis: Atrophy of thyroid (acquired)[ICD10: E03.4] Diagnosis: Essential (primary) hypertension[ICD10: I10] Diagnosis: Localized edema[ICD10: R60.0] Diagnosis: Other chronic pain[ICD10: G89.29] Alexandria Barron MD, [facility] CPT-4: 81763 02/12/2018 ([id number]) 56791 EST. PATIENT, LEVEL III Diagnosis: Cough[ICD10: R05] Diagnosis: Acute bronchitis, unspecified[ICD10: J20.9] Sandra Barron MD, [facility] CPT-4: 00006 12/26/2017 ([id number]) 92553 EST. PATIENT, LEVEL IV Diagnosis: Essential (primary) hypertension[ICD10: I10] Diagnosis: Other specified noninfective disorders of lymphatic vessels and lymph nodes[ICD10: I89.8] Diagnosis: Atrophy of thyroid (acquired)[ICD10: E03.4] [facility] CPT-4: 90750 12/04/2017 95997 EST. PATIENT, LEVEL III Diagnosis: Candidiasis of skin and nail[ICD10: B37.2] [facility] CPT-4: 06315 11/13/2017 ([id number]) 90615 EST. PATIENT, LEVEL III Diagnosis: Lymphedema, not elsewhere classified[ICD10: I89.0] Diagnosis: Low back pain[ICD10: M54.5] Diagnosis: Localized edema[ICD10: R60.0] Alexandria Barron MD, [facility] CPT- 4: 19265 11/06/2017 ([id number]) Miscellaneous no charge Diagnosis: Localized edema[ICD10: R60.0] Diagnosis: Cellulitis of right lower limb[ICD10: L03.115] Diagnosis: Cellulitis of left lower limb[ICD10: L03.116] Светлана Barron MD, [facility] CPT-4: 03898 11/03/2017 08356 EST. PATIENT, LEVEL III Diagnosis: Cellulitis of left lower limb[ICD10: L03.116] Diagnosis: Localized edema[ICD10: R60.0] Светлана Barron MD, [facility] CPT-4 : 63476 10/29/2017 ([id number]) 53995 EST. PATIENT, LEVEL IV Diagnosis: Essential (primary) hypertension[ICD10: I10] Diagnosis: Atrophy of thyroid (acquired)[ICD10: E03.4] Diagnosis: Pain in left knee[ICD10: M25.562] Diagnosis: Stiffness of left hand, not elsewhere classified[ICD10: M25.642] Diagnosis: Stiffness of right hand, not elsewhere classified[ICD10: M25.641] Alexandria Barrno MD, [facility] CPT-4: 59756 09/04/2017 ([id number]) 95494 EST. PATIENT, LEVEL III Diagnosis: Other viral warts[ICD10: B07.8] Diagnosis: Other skin changes[ICD10: R23.8] Alexandria Barron MD, [facility] CPT-4: 04190 08/08/2017 [id number]) 31074 EST. 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 PATIENT, LEVEL IV Diagnosis: Essential (primary) hypertension[ICD10: I10] Diagnosis: Atrophy of thyroid (acquired)[ICD10: E03.4] Diagnosis: Encounter for immunization[ICD10: Z23] Diagnosis: Sick sinus syndrome[ICD10: I49.5] Alexandria Barron MD, [facility] CPT-4: 14674 04/16/2017 ([id number]) Miscellaneous no charge Diagnosis: Cellulitis of left lower limb[ICD10: L03.116] Светлана Barron MD, [facility] CPT-4: 70780 02/24/2017 95636 EST. PATIENT, LEVEL III Diagnosis: Cellulitis of left lower limb[ICD10: L03.116] Diagnosis: Cellulitis of right lower limb[ICD10: L03.115] Светлана Barron MD, [facility] CPT-4: 10286 02/10/2017 ([id number]) 94420 EST. PATIENT, LEVEL IV Diagnosis: Essential (primary) hypertension[ICD10: I10] Diagnosis: Other abnormal glucose[ICD10: R73.09] Diagnosis: Localized edema[ICD10: R60.0] Alexandria Barron MD, [facility] CPT- 4: 44823 01/21/2017 22896 EST. 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 PATIENT, LEVEL IV Diagnosis: Essential (primary) hypertension[ICD10: I10] Diagnosis: Pain in left knee[ICD10: M25.562] Diagnosis: Other instability, left knee[ICD10: M25.362] Diagnosis: Other chronic pain[ICD10: G89.29] Alexandria Barron MD, [facility] CPT-4: 52137 08/26/2016 ([id number]) 94777 EST. PATIENT, LEVEL III Diagnosis: Localized edema[ICD10: R60.0] Sandra Barron MD, [facility] CPT-4: 00899 02/27/2016 ([id number]) Miscellaneous no charge Diagnosis: Lymphedema, not elsewhere classified[ICD10: I89.0] Sandra Barron MD, [facility] CPT-4: 21877 02/20/2016 ([id number]) 43814 EST. PATIENT, LEVEL III Diagnosis: Contusion of left lower leg, subsequent encounter[ICD10: S80.12XD] Diagnosis: Abrasion of scalp, subsequent encounter[ICD10: S00.01XD] Diagnosis: Laceration without foreign body of left upper arm, subsequent encounter[ICD10: S41.112D] Diagnosis: Localized edema[ICD10: R60.0] Sandra Barron MD, [facility] CPT-4: 66893 02/19/2016 ([id number]) Miscellaneous no charge Diagnosis: Laceration without foreign body of left upper arm, subsequent encounter[ICD10: S41.112D] Diagnosis: Abrasion of scalp, subsequent encounter[ICD10: S00.01XD] Sandra Barron MD , [facility] CPT-4: 38249 02/12/2016 ([id number]) 91836 EST. PATIENT, LEVEL IV Diagnosis: Contusion of left lower leg, initial encounter[ICD10: S80.12XA] Diagnosis: Abrasion of scalp, initial encounter[ICD10: S00.01XA] Diagnosis: Laceration without foreign body of left upper arm, initial encounter[ ICD10: S41.112A] Diagnosis: Localized edema[ICD10: R60.0] Diagnosis: Hypothyroidism, unspecified[ICD10: E03.9] Diagnosis: Essential (primary) hypertension[ICD10: I10] Alexandria Barron MD, [facility] CPT-4: 87469 02/08/2016 ([id number]) 55209 EST. PATIENT, LEVEL IV Diagnosis: Cough[ICD10: R05] Diagnosis: Low back pain[ICD10: M54.5] Diagnosis: Allergic rhinitis due to pollen[ICD10: J30.1] Diagnosis: Acute upper respiratory infection, unspecified[ICD10: J06.9] Diagnosis: Acute bronchitis, unspecified[ICD10: J20.9] Sandra Barron MD, [facility] CPT-4: 91383 11/16/2015 ([id number]) 19072 EST. PATIENT, LEVEL IV Diagnosis: Hypothyroidism, unspecified[ICD10: E03.9] Diagnosis: Lymphedema, not elsewhere classified[ICD10: I89.0] Alexandria Barron MD, [facility] CPT-4: 68445 07/18/2015 15893 EST. PATIENT, LEVEL IV Diagnosis: Contusion of left lower leg, subsequent encounter[ICD10: S80.12XD] Diagnosis: Cellulitis of left lower limb[ICD10: L03.116] Светлана Barron MD, [facility] CPT-4: 37674 06/27/2015 30133 EST. PATIENT, LEVEL III Diagnosis: Contusion of left lower leg, initial encounter[ICD10: S80.12XA] Diagnosis: Cellulitis of left lower limb[ICD10: L03.116] Светлана Barron MD, [facility] CPT-4: 84587 06/19/2015 ([id number]) 01577 EST. 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 PATIENT, LEVEL III Diagnosis: Rosacea, acne[ICD9: 695.3] Diagnosis: Lymphedema[ICD9: 457.1] Sandra Barron MD, [facility] CPT-4: 08464 02/27/2015 ([id number]) 73033 EST. PATIENT, LEVEL III Diagnosis: Right leg swelling[ICD9: 729.81] Alexandria Barron MD, [facility] CPT-4: 51880 01/26/2015 ([id number]) 14369 EST. PATIENT, LEVEL III Diagnosis: CELLULITIS OF LEG[ICD9: 682.6] Mary Ann Barron MD, [facility] CPT-4 : 58017 01/16/2015 ([id number]) OFFICE VISIT, NEW - LEVEL 4 Diagnosis: Back pain[ICD9: 724.5] Diagnosis: Lymphedema[ICD9: 457.1] Diagnosis: Sacroiliitis[ICD9: 720.2] Diagnosis: Chronic pain[ICD9: 338.29] Diagnosis: HYPOTHYROIDISM[ICD9: 244.9] Diagnosis: Dysphagia[ICD9: 787.20] [facility] CPT-4: 72114 12/05/2014 Plan of Care Planned Activity Notes [...] - improved with lymphedema compression wraps. 09/23/2018 Patient Education: Patient Medication Summary Completed 09/23/2018 Appointment: [facility]ана [phone] ([facility] min[facility] Complex 09/14/2018 Visit Plan: Hypertension [...] with compression 07/23/2018 [phone] ([facility] Moderate 07/23/2018 Patient Education: [...] seated. 07/07/2018 Appointment: Alexandria Barron WPtel: [phone] [facility] (15 min) Moderate 07/07/2018 Patient Education: Patient [...] edema. 06/22/2018 Appointment: Alexandria Barron WPtel: [phone] [facility] (15 min) Moderate 06/22/2018 Patient Education: Patient Medication Summary Completed 06/22/2018 Appointment: Alexandria Barron WPtel: [phone] [facility] [place] (15 min) Moderate 05/27/2018 Visit Plan: [...] over-medication. 05/25/2018 Appointment: Alexandria Barron WPtel: [phone] [facility] [place] (15 min) Moderate 05/25/2018 Patient Education: Patient Medication Summary Completed 05/25/2018 Patient Education: Back Pain Completed 05/25/2018 Appointment: Светлана Garcia [phone] ([facility] min) Complex 05/15/2018 Visit Plan: Hypertension [...] clinic. 04/23/2018 App[facility]ment: [phone] [place] (15 min) Moderate 04/23/2018 Patient Education: Patient [...] request. 04/01/2018 Appointment: [phone] (15 min) Moderate 04/01/2018 Patient [...] well. 03/18/2018 App[facility]ment: [phone] [place] (15 min) Moderate 03/18/2018 Patient [...] buttock. 03/09/2018 Appointment: Alexandria Barron WPtel: [facility]4 [facility] (15 min) Moderate 03/09/2018 Patient Education: Patient [...] report. 02/12/2018 Appointment: Alexandria Barron WPtel: [phone] [facility] (15 min) Moderate 02/12/2018 Patient Education: Patient Medication Summary Completed 02/12/2018 Visit Plan: Bronchitis- Pt advised to increase fluids, vitamin C. Discussed natural and expected course of this diagnosis and need to alert me if symptoms do not follow expected course, or if any worse. RX sent to patient's pharmacy. 12/26/2017 Appointment: Sandra Mcdonald WPtel: [phone] [phone] [place] (15 min) Moderate 12/26/2017 Patient [...] seated. 12/04/2017 Appointment: Alexandria [phone] ([facility] min) Complex 12/04/2017 Patient Education: [...] discharge. 11/13/2017 Appointment: Светлана Garcia [phone] ([facility] min) Complex 11/13/2017 Patient Education: Patient [...] care. 11/06/2017 Appointment: Alexandria Bar[phone] (30 min) Complex 11/06/2017 Patient Education: [...] peripheral edema. 10/29/2017 Appointment: Светлана Garcia WPtel: [facility] (15 min) Moderate 10/29/2017 Patient Education: Patient [...] pennsaid sample 09/04/2017 Appointment: Alexandria Barron WPtel: [facility] [place] (15 min) Moderate 09/04/2017 Patient Education: Patient Medication Summary Completed 09/04/2017 Appointment: Светлана Garcia WPtel: [facility] [place] (15 min) Moderate 08/18/2017 Visit Plan: Skin lesion on face - lesion removed with scalpel and dressed with medihoney, pt to RTC in 10 days for treatment of the lesion if not fully resolved. 08/08/2017 Appointment: Alexandria Barron WPtel: [facility] [place] (30 min) Complex 08/08/2017 [...] medication. 05/29/2017 Appointment: Alexandria Barron WPtel: [phone] [facility] (15 min) Moderate 05/29/2017 Patient Education: Patient Medication Summary Completed 05/29/2017 Appointment: Alexandria Barron [facility]el[phone] (15 min) Moderate 04/30/2017 Referral: Alberta Wilks [address] [place], [place] [id number] Patient informed. Referral info faxed. Completed 04/28/2017 [...] control. 04/16/2017 Appointment: Alexandria Barron [facility]Ptel[phone] (15 min) Moderate 04/16/2017 Patient Education: Patient Medication Summary Completed 04/16/2017 Care Plan: Referral Order SNOMED-CT : [id number] Pending 04/16/2017 Visit Plan: Wound healed - no further treatment at this time. 02/24/2017 Appointment: Nurse Visit 02/24/2017 Patient Education: Patient Medication Summary Completed 02/24/2017 Appointment: Nurse Visit 02/18/2017 Appointment: Светлана Garcia WPtel: [facility]2 [facility] (30 min) Complex 02/14/2017 Visit Plan: Cellulitis - The patient was instructed in appropriate wound care. The patient was instructed to use the antibiotic as per RX. The patient is to call for any change in symptoms, increase in size of the lesion, increase in pain, worsening redness, warmth, discharge. 02/10/2017 Appointment: Светлана Garcia WPtel: [phone] [facility] (30 min) Complex 02/10/2017 Patient Education: [...] chocolate intake. 01/21/2017 Appointment: Alexandria Barron WPtel: [facility]5 [facility] (15 min) Moderate 01/21/2017 Patient Education: Patient [...] not improving. 12/18/2016 Appointment: Alexandria Barron WPtel: [facility] (15 min) Moderate 12/18/2016 Patient Education: [...] to specialist 08/26/2016 Appointment: Alexandria Barron WPtel: [facility] (15 min) Moderate 08/26/2016 Patient Education: Patient Medication Summary Completed 08/26/2016 Care Plan: Referral Order SNOMED-CT : [id number] Pending 08/26/2016 Appointment: Sandra Mcdonald WPtel: [phone] (30 min) Complex 03/11/2016 Visit Plan: Edema - improved-pt has been advised to elevate legs to prevent dependent edema, compression has been recommended to help to naturally decrease peripheral edema. Diuretic use has been discussed and pt has been instructed in appropriate use of such medication as necessary to further attempt to reduce peripheral edema. 02/27/2016 Appointment: Sandra Mcdonald WPtel: [phone] (30 min) Complex 02/27/2016 Patient Education: Patient Medication Summary Completed 02/27/2016 Appointment: Nurse Visit 02/20/2016 Patient Education: Patient Medication Summary Completed 02/20/2016 Visit Plan: Abrasion of scalp-healing well-continue wound care as directed Laceration left arm-healing well-continue wound care-may leave open to air Contusion of left leh-zjmwysbhp-pixurbgk to monitor Edema-elevate legs-follow up tomorrow for quick check of swelling 02/19/2016 Appointment: Sandra Mcdonald WPtel: [phone] [phone] (15 min) Moderate 02/19/2016 Patient Education: [...] edema. 02/08/2016 Appointment: Alexandria Barron [facility]Ptel: [phone] [place] (15 min) Moderate 02/08/2016 Patient [...] of swelling. 07/18/2015 Appointment: Alexandria Barron WPtel: [address] [place] [address] (15 min) Moderate 07/18/2015 Patient Education: Patient [...] improving. 04/03/2015 Appointment: Alexandria Barron [facility]Ptel[phone] (15 min) Moderate 04/03/2015 Patient Education: Patient Medication Summary Completed 04/03/2015 Visit Plan: Rosacea-continue finacea as directed-add metronidazole cream twice daily-call if symptoms do not improve or if any worse. Dducafrtwo-sunvbgv-xwcyssea with wraps-no change in treatment 02/27/2015 Appointment: [...] EGD. 12/05/2014 Appointment: Alexandria Barron [facility]Ptel[phone] [place] (S[facility] New Patient 12/05/2014 Patient Education: Patient Medication Summary Completed 12/05/2014 Patient Education: Hypertension Completed 12/05/2014 Referral: Jose A Rios Referral Appointment Requested Referral: Alberta Wilks [address] [facility] [address] [id number] Referral Appointment Requested Referral: Amarjit Veronica [facility]Ptel: [phone] Referral Appointment Requested Referral: Rashard Dial WPtel: Referral Appointment Requested Instructions Comment . Hypertension - well controlled - continue [...] cut back on her chocolate intake. . Edema - improved-pt has been advised [...] day on average per her report. . Hypothyroidism - pt with chronic hypothyroidism, [...] antibiotic course, call if not improving. . Chronic pain - continue with the [...] on buttock - Calmoseptine on buttock. . Cellulitis - The patient was instructed in appropriate wound care. The patient was instructed to use the antibiotic as per RX. The patient is to call for any change in symptoms, increase in size of the lesion, increase in pain, worsening redness, warmth, discharge. . Dressing change-return tomorrow . Hypertension - well controlled - continue [...] directed, and understands the consequences of over-medication. VENOUS DOPPLER RIGHT LEG . Right leg swelling-significantly more than left-plan for venous doppler- continued compression-elevated as much as possible. Patient verbalized understanding of plan. Pneumovax - pneumonia shot - you had [...] continued elevation and monitoring of swelling. . Hypertension - well controlled - continue [...] do not improve or if any worse. Vujunhcbrh-pofdcbw-idgsyixb with wraps-no change in treatment . Left [...] to further attempt to reduce peripheral edema. get labs one week before next appointment [...] - improved with lymphedema compression wraps. . Hypothyroidism - pt with chronic hypothyroidism, [...] paracentesis. Lymphedema - continue with compression . Hypertension - well controlled - continue [...] with compression, elevate lower extremities while seated. Antibiotic prescription sent to your pharmacy Take [...] Follow up appointment in 10 days. . Weeping edema bilateral lower legs - [...] left finger stiffness - pennsaid sample . Skin lesion on face - lesion [...] lesion, increase in pain, or other concerns. take lasix 40mg daily x 1 week [...] CPAP - stop oxygen per pt request. kenalog . Bronchitis- Pt advised to increase fluids, vitamin C. Discussed natural and expected course of this diagnosis and need to alert me if symptoms do not follow expected course, or if any worse. RX sent to patient's pharmacy. . Hypertension - well controlled - continue [...] further attempt to reduce peripheral edema. . Abrasion of scalp-healing well-continue wound care as directed Laceration left arm-healing well-continue wound care-may leave open to air Contusion of left rlo-povlldvsx-qnzhlvsz to monitor Edema-elevate legs-follow up tomorrow for quick check of swelling Cream twice a day x 3 days, [...] increase in pain, worsening redness, warmth, discharge. zpack rocephin and kenalog injection today in [...]
--- OUTSIDE RECORDS SUMMARY | 2018-11-23 15:51 | XMS REPORT | CCD ---
Author Author [facility] Organization [facility] Address [address] [place] [address] Phone Care Team Providers Care Client Support Consultant Name Role Phone PP Unavailable CCM Unavailable Summary Purpose Interface Exchange Insurance Providers Payer name Policy type / Coverage type Covered democrat ID Effective Begin Date Effective End Date WPS Medicare Part B Medicare Part B [id number] Unknown Unknown [facility] Medicare Part B [id number] Unknown Unknown Family history Brother Diagnosis Age At Onset Diabetes Unknown Skin cancer Unknown Father Diagnosis Age At Onset Heart disease Unknown Mother Diagnosis Age At Onset advanced age Unknown Hypothyroid Unknown Social History Social History Element Codes Description Effective Dates Marital status Unknown Single 12/05/2014 Number of children Unknown 0 12/05/2014 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 quit 20-25 [...] ICD-9: 401.1 ICD-10: I10 Active 02/07/2016 Unknown Lymphedema, not elsewhere classified ICD-9: 457.1 ICD-10: I89.0 Active 02/19/2016 Unknown Other ascites ICD-9: 789.59 ICD-10: R18.8 Active 07/23/2018 Unknown Atrophy of thyroid (acquired) ICD-9: 244.8 ICD-10: E03.4 Active 12/18/2016 Unknown Localized edema ICD-9 : 782.3 ICD-10: R60.0 Active 02/26/2016 Unknown Encounter for immunization ICD-9: V04.81 ICD-10: [...] hypertension ICD-9: 401.1 ICD-10: I10 02/07/2016 Active Lymphedema, not elsewhere classified ICD-9: 457.1 ICD-10: I89.0 02/19/2016 Active Other ascites ICD-9: 789.59 ICD-10: R18.8 07/23/2018 Active Atrophy of thyroid (acquired) ICD-9: 244.8 ICD-10: E03.4 12/18/2016 Active Localized edema ICD-9 : 782.3 ICD-10: R60.0 02/26/2016 Active Encounter for immunization ICD-9: V04.81 ICD-10: [...] Fill Instructions oxycodone 5 mg tablet RxNorm: 1003183 2 Tablet(s) PO BID 201810/14/2018 Active oxycodone 5 mg tablet RxNorm: 2959621 2 Tablet(s) PO BID 201708/29/2018 Inactive Lasix 40 mg tablet RxNorm: 010043 1 Tablet(s) PO daily as needed edema if more than 3 pounds weight gain in 48 hours 07/23/2018 11/19/2018 Active oxycodone 5 mg tablet RxNorm: 4283089 2 Tablet(s) PO BID 201707/30/2018 Inactive nadolol 20 mg tablet RxNorm: 985626 1/2 Tablet(s) PO daily No Stop Date Active oxycodone 5 mg tablet RxNorm: 8120166 2 Tablet(s) PO BID 201707/15/2018 Inactive nadolol 20 mg tablet RxNorm: 345471 1 Tablet(s) TAKE 1 TABLET BY MOUTH EVERY DAY 05/25/2018 06/21/2018 Inactive Generic For:*CORGARD 20 MG TABLET 05/21/2018 10:10: 43 AM spironolactone 50 mg tablet RxNorm: 551598 TAKE 1 TABLET BY MOUTH EVERY DAY 05/21/2018 06/03/2018 Inactive Generic For:ALDACTONE 50MG 05/21/2018 10:10:31 AM Ocuvite tablet RxNorm : 1 Tablet(s) PO BID 05/21/2018 06/03/2018 Inactive pramipexole 0.25 mg tablet RxNorm: 476497 TAKE 1 TABLET BY MOUTH TWICE DAILY 05/21/2018 06/03/2018 Inactive Generic For:MIRAPEX 0.25MG TAB 05/21/2018 10:10:48 AM levothyroxine 88 mcg tablet RxNorm: 864461 TAKE 1 TABLET BY MOUTH EVERY DAY WITH A 100MCG TABLET 05/21/2018 06/03/2018 Inactive Generic For:*SYNTHROID 0.088MG TAB 05/21/2018 10:10:11 AM levothyroxine 100 mcg tablet RxNorm: 987604 TAKE 1 TABLET BY MOUTH EVERY DAY , TAKE WITH AN 88 MCG TABLET 05/21/2018 Inactive Generic For:*SYNTHROID 100 MCG TABLET 05/21/2018 10:10:04 AM Vitamin D3 2,000 unit capsule RxNorm: 704310 1 Capsule(s) PO daily 05/21/2018 No Stop Date Active nadolol 20 mg tablet RxNorm: 136872 TAKE 1/2 TABLET BY MOUTH EVERY DAY 05/21/2018 05/24/2018 Inactive Generic For:*CORGARD 20 MG TABLET 05/21/2018 10:10:43 AM oxycodone 5 mg tablet RxNorm: 8911522 1 Tablet(s) PO QID as needed 05/15/2018 06/13/2018 Inactive pramipexole 0.25 mg tablet RxNorm: 765818 1 Tablet(s) PO BID 05/20/2018 Inactive Requip 0.25 mg tablet RxNorm: 902513 1 Tablet(s) PO BID 201705/03/2018 Inactive potassium chloride ER 10 mEq tablet,extended release RxNorm: 866479 1 Tablet(s) PO daily as needed when taking lasix 04/23/2018 08/20/2018 Inactive Lasix 40 mg tablet RxNorm: 706726 1 Tablet(s) PO daily as needed edema if more than 3 pounds weight loss in 48 hours 04/23/2018 07/22/2018 Inactive potassium chloride ER 10 mEq tablet,extended release RxNorm: 423175 1 Tablet(s) PO daily as needed when taking lasix 04/01/2018 04/22/2018 Inactive Lasix 40 mg tablet RxNorm: 638080 1 Tablet(s) PO daily as needed edema 04/01/2018 04/22/2018 Inactive oxycodone 5 mg tablet RxNorm: 4036624 1 Tablet(s) PO QID as needed 03/18/2018 04/16/2018 Inactive levothyroxine 88 mcg tablet RxNorm: 616463 1 Tablet(s) PO daily . Take with 100 mcg tablet. 02/19/2018 05/20/2018 Inactive spironolactone 50 mg tablet RxNorm: 278403 Tablet(s) TAKE 1 TABLET BY MOUTH DAILY 02/19/2018 05/20/2018 Inactive levothyroxine 100 mcg tablet RxNorm: 715254 1 Tablet(s) PO daily . Take with 88 mcg tablet 02/19/2018 02/18/2018 Inactive levothyroxine 88 mcg tablet RxNorm: 714586 1 Tablet(s) PO daily . Take with 100 mcg tablet. 02/19/2018 02/18/2018 Inactive levothyroxine 100 mcg tablet RxNorm: 390491 1 Tablet(s) PO daily . Take with 88 mcg tablet 02/19/2018 05/20/2018 Inactive spironolactone 25 mg tablet RxNorm: 973995 1 Tablet(s) PO daily 02/12/2018 02/18/2018 Inactive pt will let you know when she is ready for the refill oxycodone 10 mg tablet RxNorm: 3504824 1 Tablet(s) PO TID as needed 02/12/2018 03/13/2018 Inactive oxycodone 10 mg tablet RxNorm: 7275317 1 Tablet(s) PO Q6 as needed 01/22/2018 02/11/2018 Inactive spironolactone 50 mg tablet RxNorm: 068023 TAKE 1 TABLET BY MOUTH DAILY 01/05/2018 02/11/2018 Inactive Generic For:ALDACTONE 50MG 01/05/2018 8:27:46 AM Kenalog 40 mg/mL suspension for injection RxNorm: 4207743 1 Milliliter(s) Inj 12/26/2017 12/26/2017 Inactive Zithromax Z-Fransisco 250 mg tablet RxNorm: 593563 1 Tablet(s) PO UD 12/26/2017 12/30/2017 Inactive oxycodone 10 mg tablet RxNorm: 1510146 1 Tablet(s) PO Q6 as needed 11/25/2017 12/24/2017 Inactive nystatin 100,000 unit/gram topical powder RxNorm: 940384 1 Application TOP BID 11/13/2017 No Stop Date Active nystatin 100,000 unit/gram topical cream RxNorm: 468156 Gram(s) TOP QID 11/12/2017 11/18/2017 Inactive nystatin 100,000 unit/gram topical cream RxNorm: 346594 Gram(s) TOP QID 11/12/2017 11/11/2017 Inactive Lasix 20 mg tablet RxNorm: 969319 1 Tablet(s) PO daily as needed edema 11/03/2017 11/07/2017 Inactive potassium chloride ER 10 mEq tablet,extended release RxNorm: 272392 1 Tablet(s) PO daily while on the lasix 11/03/201701/2018 Inactive Keflex 500 mg capsule RxNorm: 899867 1 Capsule(s) PO TID 201711/07/2017 Inactive potassium chloride ER 10 mEq tablet,extended release RxNorm: 584427 1 Tablet(s) PO daily while on the lasix 10/29/2017 Inactive Lasix 20 mg tablet RxNorm: 370113 1 Tablet(s) PO daily as needed edema 10/29/2017 10/31/2017 Inactive oxycodone 10 mg tablet RxNorm: 1464639 1 Tablet(s) PO Q6 as needed 09/29/2017 10/28/2017 Inactive levothyroxine 200 mcg tablet RxNorm: 090918 TAKE 1 TABLET BY MOUTH DAILY 09/01/2017 02/18/2018 Inactive Generic For:*SYNTHROID 0.2MG TAB 09/01/2017 8:36:32 AM Bactrim DS 800 mg-160 mg tablet RxNorm: 394932 1 Tablet(s) PO BID 08/07/2017 08/16/2017 Inactive Bactrim DS 800 mg-160 mg tablet RxNorm: 593849 1 Tablet(s) PO BID 08/07/2017 08/06/2017 Inactive oxycodone 10 mg tablet RxNorm: 2130654 1 Tablet(s) PO Q6 as needed 07/31/2017 08/29/2017 Inactive spironolactone 50 mg tablet RxNorm: 100888 1 Tablet(s) PO daily 06/30/2017 12/26/2017 Inactive Not due for a refill until next month nadolol 20 mg tablet RxNorm: 263797 1 Tablet(s) PO daily 201611/28/2017 Inactive nadolol 20 mg tablet RxNorm: 255849 1/2 Tablet(s) PO daily 11/28/2017 Inactive nadolol 20 mg tablet RxNorm: 597072 1/2 Tablet(s) PO daily 05/21/2017 Inactive oxycodone 10 mg tablet RxNorm: 4261316 1 Tablet(s) PO Q6 as needed 04/01/2017 04/30/2017 Inactive levothyroxine 200 mcg tablet RxNorm: 355355 TAKE 1 TABLET BY MOUTH DAILY 03/10/2017 08/31/2017 Inactive Generic For:*SYNTHROID 0.2MG TAB 03/10/2017 8:49:05 AM potassium chloride ER 10 mEq tablet,extended release RxNorm: 790989 1 Tablet(s) PO daily while on the lasix 02/18/2017 Inactive Lasix 20 mg tablet RxNorm: 285793 1 Tablet(s) PO daily as needed edema 02/18/2017 02/20/2017 Inactive Keflex 500 mg capsule RxNorm: 606913 1 Capsule(s) PO TID 201602/16/2017 Inactive Lasix 20 mg tablet RxNorm: 913245 1 Tablet(s) PO daily 201602/15/2017 Inactive potassium chloride ER 10 mEq tablet,extended release RxNorm: 120710 1 Tablet(s) PO daily while on the lasix 02/14/2017 Inactive Lasix 20 mg tablet RxNorm: 151286 1 Tablet(s) PO daily 201602/13/2017 Inactive potassium chloride ER 10 mEq tablet,extended release RxNorm: 647062 1 Tablet(s) PO daily while on the lasix 02/14/2017 Inactive oxycodone 10 mg tablet RxNorm: 2832064 1 Tablet(s) PO Q6 as needed 02/05/2017 03/06/2017 Inactive minocycline 50 mg tablet RxNorm: 015388 1 Tablet(s) PO Q72H 12/03/2017 Inactive spironolactone 50 mg tablet RxNorm: 942772 1 Tablet(s) PO daily 12/18/2016 06/15/2017 Inactive Not due for a refill until next month oxycodone 10 mg tablet RxNorm: 8131206 1 Tablet(s) PO Q6 as needed 12/05/2016 01/03/2017 Inactive nadolol 20 mg tablet RxNorm: 739459 1 Tablet(s) PO daily 201604/15/2017 Inactive oxycodone 10 mg tablet RxNorm: 3966048 1 Tablet(s) PO Q6 as needed 09/30/2016 10/29/2016 Inactive levothyroxine 200 mcg tablet RxNorm: 056313 TAKE 1 TABLET BY MOUTH DAILY 09/12/2016 03/09/2017 Inactive Generic For:*SYNTHROID 0.2MG TAB 09/12/2016 8:41:27 AM oxycodone 10 mg tablet RxNorm: 0487088 1 Tablet(s) PO Q6 as needed 08/06/2016 09/04/2016 Inactive oxycodone 10 mg tablet RxNorm: 0937899 1 Tablet(s) PO Q6 as needed 06/10/2016 07/09/2016 Inactive oxycodone 10 mg tablet RxNorm: 8681499 1 Tablet(s) PO Q6 as needed 04/05/2016 05/04/2016 Inactive levothyroxine 200 mcg tablet RxNorm: 226153 1 Tablet(s) PO daily 03/14/2016 09/09/2016 Inactive oxycodone 10 mg tablet RxNorm: 2553668 1 Tablet(s) PO Q6 as needed 02/08/2016 03/08/2016 Inactive Kenalog 40 mg/mL suspension for injection RxNorm: 0904914 Milliliter(s) Inj 11/16/2015 11/16/2015 Inactive Zithromax Z-Fransisco 250 mg tablet RxNorm: 172269 1 Tablet(s) PO UD 11/16/2015 11/20/2015 Inactive zpack, take probiotic while on abx oxycodone 10 mg tablet RxNorm: 4111411 1 Tablet(s) PO Q6 as needed 11/16/2015 02/07/2016 Inactive ceftriaxone 500 mg solution for injection RxNorm: 8143559 Inj 11/16/2015 11/16/2015 Inactive oxycodone 10 mg tablet RxNorm: 7609715 1 Tablet(s) PO Q6 as needed 10/11/2015 11/15/2015 Inactive levothyroxine 200 mcg tablet RxNorm: 245407 1 Tablet(s) PO daily 09/14/2015 03/11/2016 Inactive oxycodone 10 mg tablet RxNorm: 6723855 1 Tablet(s) PO Q6 as needed 08/10/2015 10/10/2015 Inactive Keflex 500 mg capsule RxNorm: 465595 1 Capsule(s) PO TID 201407/03/2015 Inactive Keflex 500 mg capsule RxNorm: 332284 1 Capsule(s) PO TID 201406/25/2015 Inactive oxycodone 10 mg tablet RxNorm: 6820880 1 Tablet(s) PO Q6 as needed 04/03/2015 08/09/2015 Inactive oxycodone 10 mg tablet RxNorm: 2698603 1 Tablet(s) PO Q6 as needed 02/14/2015 04/02/2015 Inactive Keflex 500 mg capsule RxNorm: 178731 1 Capsule(s) PO TID 201401/22/2015 Inactive Culturelle 10 billion cell capsule RxNorm: 872433 1 Capsule(s) PO daily 01/16/2015 02/14/2015 Inactive Dulcolax Stool Softener (docusate) 100 mg capsule RxNorm: 2963321 1 Capsule(s) PO daily 12/05/2014 02/11/2018 Inactive [SAVINGS FOR NON-COVERED DRUGS -- BIN:[id number], PCN: [id number], Group: [id number], ID# [id number], Questions: . THIS IS NOT INSURANCE.] Restasis 0.05 % eye drops in a dropperette RxNorm: 099249 1 Drop(s) OPH BID No Start Date Active Vitamin D3 2,000 unit capsule RxNorm: 421540 1 Capsule(s) PO daily No Start Date 05/20/2018 Inactive minocycline 50 mg tablet RxNorm: 650821 1 Tablet(s) PO QHS No Start Date 01/20/2017 Inactive nadolol 20 mg tablet RxNorm: 207742 1 Tablet(s) PO daily No Start Date 11/05/2016 Inactive nadolol 20 mg tablet RxNorm: 359046 1 Tablet(s) PO daily No Start Date 11/05/2016 Inactive Ocuvite tablet RxNorm : 1 Tablet(s) PO BID No Start Date 05/20/2018 Inactive oxycodone 10 mg tablet RxNorm: 4915533 1 Tablet(s) PO Q6 as needed No Start Date 02/13/2015 Inactive Dulcolax Stool Softener (docusate) 100 mg capsule RxNorm: 8496447 1 Capsule(s) PO BID No Start Date 12/04/2014 Inactive Multivitamin 50 Plus tablet RxNorm: 1 Tablet(s) PO QAM No Start Date 02/11/2018 Inactive Finacea 15 % topical gel RxNorm: 4877620 TOP No Start Date 05/24/2018 Inactive Synthroid 200mcg Oral RxNorm: oral No Start Date 09/13/2015 Inactive spironolactone 50 mg tablet RxNorm: 702446 1 Tablet(s) PO daily No Start Date 12/17/2016 Inactive spironolactone 50 mg tablet RxNorm: 519878 1 Tablet(s) PO daily No Start Date 02/11/2018 Inactive Medication Administered Medication Codes Instructions Start Date Status Kenalog 40 mg/mL suspension for injection RxNorm: 4818002 1Milliliter 12/26/2017 No longer Active ceftriaxone 500 mg solution for injection RxNorm: 6166223 11/16/2015 No longer Active Kenalog 40 mg/mL suspension for injection RxNorm: 2982510 Milliliter 11/16/2015 No longer Active Immunizations Vaccine Codes Date Status Influenza CVX: 141 04/23/2018 completed Influenza CVX: 141 04/16/2017 completed Influenza CVX: 141 08/26/2016 completed Assessments Condition Codes Effective Dates Essential (primary) hypertension ICD-10: I10 ICD-9: 401.1 07/23/2018 Lymphedema, not elsewhere classified ICD-10: I89.0 ICD-9: 457.1 07/23/2018 Other ascites ICD-10: R18.8 ICD-9: 789.59 07/23/2018 Atrophy of thyroid (acquired) ICD-10: E03.4 ICD-9: 244.8 07/07/2018 Localized edema ICD-10: R60.0 ICD-9: 782.3 06/22/2018 Low back pain ICD-10: M54.5 ICD-9: 724.2 [...] Visit Reason For Visit Effective Dates Notes cough 07/23/2018 cough 07/07/2018 Hospital Follow Up [...] Observation Code Item Item Code Result Date Comp Metabolic Byz797 NA 138 mEq/L 04/24/2018 Comp Metabolic Tro407 K 3.9 mEq/L 04/24/2018 Comp Metabolic Ekz200 CL 97 mEq/L 04/24/2018 Comp Metabolic Rxd149 CO2 32.0 mEq/L 04/24/2018 Comp Metabolic Xbz859 ANION GAP 13 04/24/2018 Comp Metabolic Gjh171 GLUCOSE 194 mg/dL 04/24/2018 Comp Metabolic Hql608 Creat 0.8 mg/dL 04/24/2018 Comp Metabolic Wjl766 eGFR 70 ml/min/1.73m2 04/24/2018 Comp Metabolic Unl339 BUN 20 mg/dL 04/24/2018 Comp Metabolic Mhd702 B/C Ratio 24.1 Ratio 04/24/2018 Comp Metabolic Npf399 CALCIUM 9.4 mg/dL 04/24/2018 Comp Metabolic Wia874 ALK PHOS 110 U/L 04/24/2018 Comp Metabolic Eeu135 AST(SGOT) 33 U/L 04/24/2018 Comp Metabolic Dwn558 ALT(SGPT) 16 U/L 04/24/2018 Comp Metabolic Yyu374 BILI T 1.8 mg/dL 04/24/2018 Comp Metabolic Xtd329 ALBUMIN 4.0 g/dL 04/24/2018 Comp Metabolic Yvg801 TPRO 5.7 g/dL 04/24/2018 Comp Metabolic Mav231 GLOB 1.7 g/dL 04/24/2018 Comp Metabolic Zvh737 A/G Ratio 2.3 Ratio 04/24/2018 Comp Metabolic Ogc781 Osmo 284 mOsmo 04/24/2018 Cbc With Differential Ord2 WBC 3.08 [...] 31.1 pg 04/24/2018 Cbc With Differential Ord2 [place]% 13.0 % 04/24/2018 Cbc With Differential Ord2 [...] 1.00 K/ul 04/24/2018 Cbc With Differential Ord2 [place] ABS# 0.4 K/ul 04/24/2018 Cbc With Differential Ord2 Eos ABS# 0.0 K/ul 04/24/2018 Cbc With Differential Ord2 Baso ABS# 0.0 K/ul 04/24/2018 Tsh Ord6 TSH (3rd IS) 0.11 uIU/mL 04/24/2018 Free T4 Nty394 FREE T4 1.92 ng/dL 04/24/2018 Tsh Ord6 TSH (3rd IS) 0.07 uIU/mL 02/13/2018 Free T4 Nzo377 FREE T4 1.85 ng/dL 02/13/2018 Comp Metabolic Whf867 NA 136 mEq/L 01/21/2017 Comp Metabolic Dgz648 K 4.3 mEq/L 01/21/2017 Comp Metabolic Aov355 CL 99 mEq/L 01/21/2017 Comp Metabolic Cje034 CO2 30.0 mEq/L 01/21/2017 Comp Metabolic Alx733 ANION GAP 11 01/21/2017 Comp Metabolic Ddm548 GLUCOSE 234 mg/dL 01/21/2017 Comp Metabolic Djl667 Creat 0.5 mg/dL 01/21/2017 Comp Metabolic Qpo619 eGFR 115 ml/min/1.73m2 01/21/2017 Comp Metabolic Ofx664 BUN 10 mg/dL 01/21/2017 Comp Metabolic Zds217 B/C Ratio 18.5 Ratio 01/21/2017 Comp Metabolic Xin178 CALCIUM 8.8 mg/dL 01/21/2017 Comp Metabolic Xjy148 ALK PHOS 74 U/L 01/21/2017 Comp Metabolic Jxa564 AST(SGOT) 28 U/L 01/21/2017 Comp Metabolic Lgz592 ALT(SGPT) 15 U/L 01/21/2017 Comp Metabolic Yqo405 BILI T 1.1 mg/dL 01/21/2017 Comp Metabolic Snm332 ALBUMIN 3.8 g/dL 01/21/2017 Comp Metabolic Ulz224 TPRO 5.8 g/dL 01/21/2017 Comp Metabolic Djc585 GLOB 2.0 g/dL 01/21/2017 Comp Metabolic Gwu928 A/G Ratio 1.9 Ratio 01/21/2017 Comp Metabolic Eib474 Osmo 279 mOsmo 01/21/2017 %Hba1C Vvg165 % HbA1c 55261-8 5.9 % 01/21/2017 %Hba1C Lsv639 Gluc Ave 123 mg/dL 01/21/2017 Cbc With Differential Ord2 WBC 3.0 K/uL [...] With Differential Ord2 RDW 15.6 % 04/03/2015 Bili D Ord93 BILI D 0.1 mg/dL 04/03/2015 Bili D Ord93 BILI I 0.9 mg/dL 04/03/2015 Tsh Ord6 hTSH II 0.80 uIU/mL 04/03/2015 Free T4 Bfu124 FREE T4 1.27 ng/dL 04/03/2015 Comp Metabolic Ixl653 NA 136 mEq/L 04/03/2015 Comp Metabolic Hwf580 K 4.3 mEq/L 04/03/2015 Comp Metabolic Zky716 CL 99 mEq/L 04/03/2015 Comp Metabolic Sjt941 CO2 29.0 mEq/L 04/03/2015 Comp Metabolic Wwo753 ANION GAP 12 04/03/2015 Comp Metabolic Bnj913 GLUCOSE 120 mg/dL 04/03/2015 Comp Metabolic Wca194 Creat 0.5 mg/dL 04/03/2015 Comp Metabolic Icg405 eGFR 118 ml/min/1.73m2 04/03/2015 Comp Metabolic Acf598 BUN 11 mg/dL 04/03/2015 Comp Metabolic Hjj455 B/C Ratio 20.8 Ratio 04/03/2015 Comp Metabolic Nug033 CALCIUM 9.3 mg/dL 04/03/2015 Comp Metabolic Ulh636 ALK PHOS 61 U/L 04/03/2015 Comp Metabolic Ecf506 AST(SGOT) 28 U/L 04/03/2015 Comp Metabolic Odl815 ALT(SGPT) 16 U/L 04/03/2015 Comp Metabolic Cdc625 BILI T 1.0 mg/dL 04/03/2015 Comp Metabolic Kjx405 ALBUMIN 4.1 g/dL 04/03/2015 Comp Metabolic Vlp824 TPRO 6.1 g/dL 04/03/2015 Comp Metabolic Jpw306 GLOB 2.0 g/dL 04/03/2015 Comp Metabolic Siv092 A/G Ratio 2.1 Ratio 04/03/2015 Comp Metabolic Ptc698 Osmo 273 mOsmo 04/03/2015 Review of Systems System Result Effective Dates Constitutional recent illness 07/23/2018 Constitutional No chills [...] FLU VACC PRSV FREE INC ANTIG CPT-4: 95937 04/23/2018 TRIAMCINOLONE ACET INJ NOS CPT-4: J3301 12/26/2017 ADMIN INFLUENZA VIRUS VAC CPT-4: G0008 04/16/2017 FLU VACC PRSV FREE INC ANTIG CPT-4: 77737 04/16/2017 TRIAMCINOLONE ACET INJ NOS CPT-4: J3301 11/16/2015 ROCEPHIN, PER 250 MG CPT-4: J0696 11/16/2015 Vital Signs Date Vital 07/23/2018 Blood Pressure 1: 104/66 Code : [...] Code : 8480-6 BMI: 23.6 Code : 52275-7 Heart Rate 1 : 59 bpm Height: 5'1" Respiratory Rate: 18 bpm SpO2: 99% Temperature: 37.0 (C) / 98.6 (F ) Weight: 125 lbs 04/23/2018 Blood Pressure 2: 118/62 Code : 8480-6 BMI: 22.3 Code : 37390-6 Heart Rate 1 : 73 bpm Height: 5'1" SpO2: 97% Weight: 118 lbs 04/01/2018 Blood Pressure 1: 136/72 Code : 8480-6 BMI: 26.6 Code : 84632-0 Heart Rate 1 : 75 bpm Height: 5'1" SpO2: 98% Weight: 141 lbs 03/18/2018 Blood Pressure 1: 132/62 Code : 8480-6 Heart Rate 1: 61 bpm Height: 5'1" SpO2: 96% Weight: 03/09/2018 Blood Pressure 1: 122/60 Code : 8480-6 Heart Rate 1: 65 bpm Height: 5'1" SpO2: 98% Weight: 02/12/2018 Blood Pressure 1: 100/68 Code : 8480-6 BMI: 24.3 Code : 21207-4 Heart Rate 1 : 68 bpm Height: 5'1" SpO2: 96% Weight: 128 lbs 13 oz 12/26/2017 Blood Pressure 1: 126/68 Code : 8480-6 BMI: 26.7 Code : 25713-5 Heart Rate 1 : 66 bpm Height: 5'1" SpO2: 98% Temperature: 36.8 (C) / 98.2 (F) Weight: 141 lbs 8 oz 12/04/2017 Blood Pressure 1: 132/76 Code : 8480-6 BMI: 26.5 Code : 35813-6 Heart Rate 1 : 73 bpm Height: 5'1" SpO2: 96% Weight: 140 lbs 11/13/2017 Blood Pressure 1: 126/62 Code : 8480-6 Heart Rate 1: 69 bpm Height: 5'1" SpO2: 96% Weight: 11/06/2017 Blood Pressure 1: 142/84 Code : 8480-6 BMI: 25.7 Code : 57440-5 Heart Rate 1 : 78 bpm Height: 5'1" SpO2: 95% Temperature: 36.9 (C) / 98.5 (F) Weight: 136 lbs 10/29/2017 Blood Pressure 1: 132/68 Code : 8480-6 BMI: 26.8 Code : 46834-0 Heart Rate 1 : 70 bpm Height: 5'1" SpO2: 98% Weight: 142 lbs 09/04/2017 Blood Pressure 1: 132/74 Code : 8480-6 BMI: 25.9 Code : 28802-9 Heart Rate 1 : 68 bpm Height: 5'1" SpO2: 96% Weight: 137 lbs 08/08/2017 Blood Pressure 1: 118/72 Code : 8480-6 BMI: 26.6 Code : 29548-6 Heart Rate 1 : 68 bpm Height: 5'1" SpO2: 95% Weight: 141 lbs 05/29/2017 Blood Pressure 1: 142/78 Code : 8480-6 BMI: 26.3 Code : 27993-7 Heart Rate 1 : 65 bpm Height: 5'1" SpO2: 95% Weight: 139 lbs 04/16/2017 Blood Pressure 1: 136/62 Code : 8480-6 BMI: 27.4 Code : 98688-3 Heart Rate 1 : 38 bpm Height: 5'1" SpO2: 98% Weight: 145 lbs 02/10/2017 Blood Pressure 1: 124/70 Code : 8480-6 BMI: 27.4 Code : 11722-1 Heart Rate 1 : 70 bpm Height: 5'1" SpO2: 96% Weight: 145 lbs 01/21/2017 Blood Pressure 1: 120/70 Code : 8480-6 BMI: 27.2 Code : 50971-1 Heart Rate 1 : 65 bpm Height: 5'1" SpO2: 95% Weight: 144 lbs 12/18/2016 Blood Pressure 1: 122/74 Code : 8480-6 BMI: 27.4 Code : 72843-8 Heart Rate 1 : 66 bpm Height: 5'1" SpO2: 97% Weight: 145 lbs 08/26/2016 Blood Pressure 1: 110/64 Code : 8480-6 BMI: 28.0 Code : 87936-5 Heart Rate 1 : 67 bpm Height: 5'1" SpO2: 97% Weight: 148 lbs 02/27/2016 Blood Pressure 1: 126/74 Code : 8480-6 Heart Rate 1: 67 bpm Height: 5'1" SpO2: 97% 02/19/2016 Blood Pressure 1: 130/80 Code : 8480-6 BMI: 28.2 Code : 02063-5 Heart Rate 1 : 74 bpm Height: 5'1" SpO2: 96% Weight: 149 lbs 02/08/2016 Blood Pressure 1: 122/78 Code : 8480-6 BMI: 28.2 Code : 91477-0 Heart Rate 1 : 63 bpm Height: 5'1" SpO2: 96% Weight: 149 lbs 11/16/2015 Blood Pressure 1: 128/70 Code : 8480-6 BMI: 27.8 Code : 72093-0 Heart Rate 1 : 64 bpm Height: 5'1" SpO2: 97% Weight: 147 lbs 07/18/2015 Blood Pressure 1: 110/60 Code : 8480-6 BMI: 28.5 Code : 53209-9 Heart Rate 1 : 61 bpm Height: 5'1" SpO2: 97% Weight: 151 lbs 06/27/2015 Blood Pressure 1: 122/60 Code : 8480-6 BMI: 28.9 Code : 95896-0 Heart Rate 1 : 63 bpm Height: 5'1" SpO2: 95% Weight: 153 lbs 06/19/2015 Blood Pressure 1: 120/78 Code : 8480-6 Heart Rate 1: 68 bpm SpO2: 96% Weight: 154 lbs 04/03/2015 Blood Pressure 1: 128/68 Code : 8480-6 BMI: 29.1 Code : 33092-3 Heart Rate 1 : 70 bpm Height: 5'1" SpO2: 97% Weight: 154 lbs 02/27/2015 Blood Pressure 1: 122/84 Code : 8480-6 BMI: 29.5 Code : 25364-4 Heart Rate 1 : 67 bpm Height: 5'1" SpO2: 95% Weight: 156 lbs 01/26/2015 Blood Pressure 1: 132/70 Code : 8480-6 BMI: 30.2 Code : 46710-8 Heart Rate 1 : 76 bpm Height: 5'1" Weight: 160 lbs 01/16/2015 Blood Pressure 1: 140/70 Code : 8480-6 BMI: 30.0 Code : 61506-9 Heart Rate 1 : 78 bpm Height: 5'1" Respiratory Rate: 20 bpm Weight: 159 lbs 12/05/2014 Blood Pressure 1: 138/78 Code : 8480-6 BMI: 30.8 Code : 20904-3 Heart Rate 1 : 76 bpm Height: 5'1" Weight: 163 lbs Functional Status No Functional Status data History of Present Illness Symptom Name Status Result Effective Date Notes Location in the lung 07/23/2018 None Location [...] ill contacts 07/23/2018 she is in a shelter [facility] recumbent position 07/23/2018 None Pertinent Findings [...] ill contacts 07/07/2018 she is in a shelter [facility] recumbent position 07/07/2018 None Hospital Follow [...] None cellulitis Alleviating Factors elevation 02/27/2015 and kritsa wraps cellulitis Initial treatment compression 02/27/2015 None [...] data Encounters Encounter Performer Location Codes Date ([id number]) [id number] EST. PATIENT, LEVEL IV Diagnosis: Essential (primary) hypertension[ICD10: I10] Diagnosis: Lymphedema, not elsewhere classified[ICD10: I89.0] Diagnosis: Other ascites[ICD10: R18.8] Alexandria Barron MD, [facility] CPT- 4: 86913 07/23/2018 ([id number]) [id number] EST. PATIENT, LEVEL IV Diagnosis: Essential (primary) hypertension[ICD10: I10] Diagnosis: Atrophy of thyroid (acquired)[ICD10: E03.4] Diagnosis: Lymphedema, not elsewhere classified[ICD10: I89.0] Alexandria Barron MD, [facility] CPT-4: 20899 07/07/2018 ([id number]) 82214 EST. PATIENT, LEVEL IV Diagnosis: Essential (primary) hypertension[ICD10: I10] Diagnosis: Localized edema[ICD10: R60.0] Alexandria Barron MD, [facility] CPT- 4: 98697 06/22/2018 [id number]) [id number] EST. PATIENT, LEVEL IV Diagnosis: Atrophy of thyroid (acquired)[ICD10: E03.4] Diagnosis: Essential (primary) hypertension[ICD10: I10] Diagnosis: Other chronic pain[ICD10: G89.29] Diagnosis: Pain in left knee[ICD10: M25.562] Diagnosis: Low back pain[ICD10: M54.5] Alexandria Barron MD, [facility] CPT- 4: 51322 05/25/2018 ([id number]) 62589 EST. 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 PATIENT, LEVEL IV Diagnosis: Essential (primary) hypertension[ICD10: I10] Diagnosis: Low back pain[ICD10: M54.5] Diagnosis: Localized edema[ICD10: R60.0] Diagnosis: Other chronic pain[ICD10: G89.29] Diagnosis: Obstructive sleep apnea (adult) (pediatric)[ICD10: G47.33] Alexandria Barron MD , [facility] CPT-4: 54240 04/01/2018 ([id number]) 58987 EST. PATIENT, LEVEL IV Diagnosis: Essential (primary) hypertension[ICD10: I10] Diagnosis: Other chronic pain[ICD10: G89.29] Diagnosis: Unsteadiness on feet[ICD10: R26.81] Alexandria Barron MD, [facility] CPT-4: 86434 03/18/2018 ([id number]) 94546 EST. PATIENT, LEVEL IV Diagnosis: Low back pain[ICD10: M54.5] Diagnosis: Localized edema[ICD10: R60.0] Diagnosis: Essential (primary) hypertension[ICD10: I10] Diagnosis: Other chronic pain[ICD10: G89.29] Diagnosis: Pressure ulcer of left buttock, stage 1[ICD10: L89.321] Diagnosis: Obstructive sleep apnea (adult) (pediatric)[ICD10: G47.33] Alexandria Barron MD , [facility] CPT-4: 55690 03/09/2018 ([id number]) 56565 EST. 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 PATIENT, LEVEL III Diagnosis: Cough[ICD10: R05] Diagnosis: Acute bronchitis, unspecified[ICD10: J20.9] Sandra Barron MD, [facility] CPT-4: 41446 12/26/2017 ([id number]) 81934 EST. 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 PATIENT, LEVEL III Diagnosis: Candidiasis of skin and nail[ICD10: B37.2] Светлана Barron MD, [facility] CPT-4: 16690 11/13/2017 ([id number]) 88727 EST. PATIENT, LEVEL III Diagnosis: Lymphedema, not elsewhere classified[ICD10: I89.0] Diagnosis: Low back pain[ICD10: M54.5] Diagnosis: Localized edema[ICD10: R60.0] Alexandria Barron MD, [facility] CPT- 4: 77218 11/06/2017 ([id number]) Miscellaneous no charge Diagnosis: Localized edema[ICD10: R60.0] Diagnosis: Cellulitis of right lower limb[ICD10: L03.115] Diagnosis: Cellulitis of left lower limb[ICD10: L03.116] Светлана Barron MD, [facility] CPT-4: 10713 11/03/2017 15928 EST. PATIENT, LEVEL III Diagnosis: Cellulitis of left lower limb[ICD10: L03.116] Diagnosis: Localized edema[ICD10: R60.0] Светлана Barron MD, [facility] CPT-4 : 83587 10/29/2017 ([id number]) 44966 EST. PATIENT, LEVEL IV Diagnosis: Essential (primary) hypertension[ICD10: I10] Diagnosis: Atrophy of thyroid (acquired)[ICD10: E03.4] Diagnosis: Pain in left knee[ICD10: M25.562] Diagnosis: Stiffness of left hand, not elsewhere classified[ICD10: M25.642] Diagnosis: Stiffness of right hand, not elsewhere classified[ICD10: M25.641] Alexandria Barron MD, [facility] CPT-4: 39978 09/04/2017 ([id number]) 86905 EST. PATIENT, LEVEL III Diagnosis: Other viral warts[ICD10: B07.8] Diagnosis: Other skin changes[ICD10: R23.8] Alexandria Barron MD, [facility] CPT-4: 73301 08/08/2017 ([id number]) 44224 EST. PATIENT, LEVEL IV Diagnosis: Essential (primary) hypertension[ICD10: I10] Diagnosis: Atrophy of thyroid (acquired)[ICD10: E03.4] Diagnosis: Low back pain[ICD10: M54.5] Alexandria Barron MD, [facility] CPT- 4: 61378 05/29/2017 ([id number]) 71377 EST. 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 PATIENT, LEVEL III Diagnosis: Cellulitis of left lower limb[ICD10: L03.116] Diagnosis: Cellulitis of right lower limb[ICD10: L03.115] Светлана Barron MD, [facility] CPT-4: 67101 02/10/2017 ([id number]) 95341 EST. PATIENT, LEVEL IV Diagnosis: Essential (primary) hypertension[ICD10: I10] Diagnosis: Other abnormal glucose[ICD10: R73.09] Diagnosis: Localized edema[ICD10: R60.0] Alexandria Barron MD, [facility] CPT- 4: 99382 01/21/2017 69536 EST. PATIENT, LEVEL IV Diagnosis: Essential (primary) hypertension[ICD10: I10] Diagnosis: Pain in left knee[ICD10: M25.562] Diagnosis: Atrophy of thyroid (acquired)[ICD10: E03.4] Alexandria Barron MD, [facility] CPT-4: 08542 12/18/2016 ([id number]) 74813 EST. PATIENT, LEVEL IV Diagnosis: Essential (primary) hypertension[ICD10: I10] Diagnosis: Pain in left knee[ICD10: M25.562] Diagnosis: Other instability, left knee[ICD10: M25.362] Diagnosis: Other chronic pain[ICD10: G89.29] Alexandria Barron MD, [facility] CPT-4: 17176 08/26/2016 ([id number]) 78389 EST. PATIENT, LEVEL III Diagnosis: Localized edema[ICD10: R60.0] Sandra Barron MD, [facility] CPT-4: 17417 02/27/2016 ([id number]) Miscellaneous no charge Diagnosis: Lymphedema, not elsewhere classified[ICD10: I89.0] Sandra Barron MD, [facility] CPT-4: 43844 02/20/2016 ([id number]) 74698 EST. PATIENT, LEVEL III Diagnosis: Contusion of left lower leg, subsequent encounter[ICD10: S80.12XD] Diagnosis: Abrasion of scalp, subsequent encounter[ICD10: S00.01XD] Diagnosis: Laceration without foreign body of left upper arm, subsequent encounter[ICD10: S41.112D] Diagnosis: Localized edema[ICD10: R60.0] Sandra Barron MD, [facility] CPT-4: 48414 02/19/2016 ([id number]) Miscellaneous no charge Diagnosis: Laceration without foreign body of left upper arm, subsequent encounter[ICD10: S41.112D] Diagnosis: Abrasion of scalp, subsequent encounter[ICD10: S00.01XD] Sandra Barron MD , [facility] CPT-4: 80726 02/12/2016 ([id number]) 78396 EST. PATIENT, LEVEL IV Diagnosis: Contusion of left lower leg, initial encounter[ICD10: S80.12XA] Diagnosis: Abrasion of scalp, initial encounter[ICD10: S00.01XA] Diagnosis: Laceration without foreign body of left upper arm, initial encounter[ ICD10: S41.112A] Diagnosis: Localized edema[ICD10: R60.0] Diagnosis: Hypothyroidism, unspecified[ICD10: E03.9] Diagnosis: Essential (primary) hypertension[ICD10: I10] Alexandria Barron MD, [facility] CPT-4: 54602 02/08/2016 ([id number]) 94236 EST. PATIENT, LEVEL IV Diagnosis: Cough[ICD10: R05] Diagnosis: Low back pain[ICD10: M54.5] Diagnosis: Allergic rhinitis due to pollen[ICD10: J30.1] Diagnosis: Acute upper respiratory infection, unspecified[ICD10: J06.9] Diagnosis: Acute bronchitis, unspecified[ICD10: J20.9] Sandra Barron MD, [facility] CPT-4: 31706 11/16/2015 ([id number]) 23368 EST. PATIENT, LEVEL IV Diagnosis: Hypothyroidism, unspecified[ICD10: E03.9] Diagnosis: Lymphedema, not elsewhere classified[ICD10: I89.0] Alexandria Barron MD, [facility] CPT-4: 81380 07/18/2015 70910 EST. PATIENT, LEVEL IV Diagnosis: Contusion of left lower leg, subsequent encounter[ICD10: S80.12XD] Diagnosis: Cellulitis of left lower limb[ICD10: L03.116] Светлана Barron MD, [facility] CPT-4: 30584 06/27/2015 08327 EST. PATIENT, LEVEL III Diagnosis: Contusion of left lower leg, initial encounter[ICD10: S80.12XA] Diagnosis: Cellulitis of left lower limb[ICD10: L03.116] Светлана Barron MD, [facility] CPT-4: 35519 06/19/2015 ([id number]) 25095 EST. 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 PATIENT, LEVEL III Diagnosis: Rosacea, acne[ICD9: 695.3] Diagnosis: Lymphedema[ICD9: 457.1] Sandra Barron MD, [facility] CPT-4: 89653 02/27/2015 ([id number]) 78663 EST. PATIENT, LEVEL III Diagnosis: Right leg swelling[ICD9: 729.81] [facility] CPT-4: 52728 01/26/2015 ([id number]) 51787 EST. PATIENT, LEVEL III Diagnosis: CELLULITIS OF LEG[ICD9: 682.6] Mary Ann Bertrand [facility] CPT-4 : 51339 01/16/2015 ([id number]) OFFICE VISIT, NEW - LEVEL 4 Diagnosis: Back pain[ICD9: 724.5] Diagnosis: Lymphedema[ICD9: 457.1] Diagnosis: Sacroiliitis[ICD9: 720.2] Diagnosis: Chronic pain[ICD9: 338.29] Diagnosis: HYPOTHYROIDISM[ICD9: 244.9] Diagnosis: Dysphagia[ICD9: 787.20] Alexandria Barron MD, [facility] CPT-4: 57262 12/05/2014 Plan of Care Planned Activity Notes Codes Status Date Appointment: [facility]а [phone] ([facility] min) Complex 09/14/2018 Visit Plan: Hypertension [...] compression 07/23/2018 Appointment: Alexandria Barron [phone] (15 min) Moderate 07/23/2018 Patient Education: Patient [...] while seated. 07/07/2018 Appointment: Alexandria Barron WPtel: [facility]5 [facility] (15 min) Moderate 07/07/2018 Patient Education: Patient [...] edema. 06/22/2018 Appointment: Alexandria Barron WPtel: [phone] [facility] (15 min) Moderate 06/22/2018 Patient Education: Patient Medication Summary Completed 06/22/2018 Appointment: Alexandria Barron WPtel: [phone] [facility] (15 min) Moderate 05/27/2018 Visit Plan: Hypertension [...] over-medication. 05/25/2018 Appointment: Alexandria Barron WPtel: [phone] [place] (15 min) Moderate 05/25/2018 Patient Education: Patient Medication Summary Completed 05/25/2018 Patient Education: Back Pain Completed 05/25/2018 Appointment: [facility]ветлана [phone] [place] (30 min) Complex 05/15/2018 Visit Plan: [...] clinic. 04/23/2018 Appointment: Alexandria Barron WPtel: [phone] (15 min) Moderate 04/23/2018 Patient Education: Patient [...] request. 04/01/2018 Appointment: Alexandria Barron WPtel: [phone] (15 min) Moderate 04/01/2018 Patient Education: Patient [...] goes well. 03/18/2018 Appointment: Alexandria Barron WPtel: [phone] (15 min) Moderate 03/18/2018 Patient Education: Patient [...] buttock. 03/09/2018 Appointment: Alexandria Barron WPtel: [phone] [facility] (15 min) Moderate 03/09/2018 Patient Education: Patient [...] Appointment: Alexandria Barron WPtel: [phone] [facility] (15 min) Moderate 02/12/2018 Patient Education: Patient Medication Summary Completed 02/12/2018 Visit Plan: Bronchitis- Pt advised to increase fluids, vitamin C. Discussed natural and expected course of this diagnosis and need to alert me if symptoms do not follow expected course, or if any worse. RX sent to patient's pharmacy. 12/26/2017 Appointment: Sandra Mcdonald WPtel: [phone] [phone] [place] (15 min) Moderate 12/26/2017 Patient [...] when seated. 12/04/2017 Appointment: Alexandria Barron WPtel: [phone] [facility] (30 min) Complex 12/04/2017 Patient Education: Patient Medication Summary Completed 12/04/2017 Visit Plan: Yeast rash - The patient was instructed in appropriate care. The patient was instructed to use the ointment as per RX. The patient is to call for any change in symptoms, increase in size of the lesion, increase in pain, worsening redness, warmth, discharge. 11/13/2017 Appointment: Светлана Garcia WPtel: [facility] (30 min) Complex 11/13/2017 Patient Education: Patient [...] wound care. 11/06/2017 Appointment: Alexandria Barron WPtel: [phone] [facility] (30 min) Complex 11/06/2017 Patient Education: Patient [...] edema. 10/29/2017 Appointment: Светлана Garcia [phone] (15 min) Moderate 10/29/2017 Patient Education: Patient [...] pennsaid sample 09/04/2017 Appointment: Alexandria Barron WPtel: [phone] (15 min) Moderate 09/04/2017 Patient Education: Patient Medication Summary Completed 09/04/2017 Appointment: Светлана Garcia [phone] (15 min) Moderate 08/18/2017 Visit Plan: Skin lesion on face - lesion removed with scalpel and dressed with medihoney, pt to RTC in 10 days for treatment of the lesion if not fully resolved. 08/08/2017 Appointment: Alexandria Barron WPtel: [phone] [facility] (30 min) Complex 08/08/2017 Patient Education: Patient [...] over- medication. 05/29/2017 Appointment: Alexandria Barron WPtel: [facility]5 [facility] (15 min) Moderate 05/29/2017 Patient Education: Patient Medication Summary Completed 05/29/2017 Appointment: Alexandria Barron WPtel: [phone] [facility] (15 min) Moderate 04/30/2017 Referral: Alberta Wilks [address] [place], [place] [id number] Patient informed. Referral info faxed. Completed 04/28/2017 [...] of control. 04/16/2017 Appointment: Alexandria Barron WPtel: [phone] [facility] (15 min) Moderate 04/16/2017 Patient Education: Patient Medication Summary Completed 04/16/2017 Care Plan: Referral Order SNOMED-CT : [id number] Pending 04/16/2017 Visit Plan: Wound healed - no further treatment at this time. 02/24/2017 Appointment: Nurse Visit 02/24/2017 Patient Education: Patient Medication Summary Completed 02/24/2017 Appointment: Nurse Visit 02/18/2017 Appointment: Светлана Garcia WPtel: [facility] (30 min) Complex 02/14/2017 Visit Plan: Cellulitis - The patient was instructed in appropriate wound care. The patient was instructed to use the antibiotic as per RX. The patient is to call for any change in symptoms, increase in size of the lesion, increase in pain, worsening redness, warmth, discharge. 02/10/2017 Appointment: Светлана Garcia WPtel: [facility] (30 min) Complex 02/10/2017 Patient Education: [...] chocolate intake. 01/21/2017 Appointment: Alexandria Barron WPtel: [facility] [place] (15 min) Moderate 01/21/2017 Patient Education: [...] Barron WPtel: [phone] (15 min) Moderate 12/18/2016 Patient Education: Patient [...] specialist 08/26/2016 Appointment: Alexandria Barron WPtel: [phone] [place] (15 min) Moderate 08/26/2016 Patient Education: Patient Medication Summary Completed 08/26/2016 Care Plan: Referral Order SNOMED-CT : [id number] Pending 08/26/2016 Appointment: Sandra Mcdonald WPtel: [phone] [place] (30 min) Complex 03/11/2016 Visit Plan: Edema - improved-pt has been advised to elevate legs to prevent dependent edema, compression has been recommended to help to naturally decrease peripheral edema. Diuretic use has been discussed and pt has been instructed in appropriate use of such medication as necessary to further attempt to reduce peripheral edema. 02/27/2016 Appointment: Sandra [facility]cdonald [phone] [place] (30 min) Complex 02/27/2016 Patient Education: Patient Medication Summary Completed 02/27/2016 Appointment: Nurse Visit 02/20/2016 Patient Education: Patient Medication Summary Completed 02/20/2016 Visit Plan: Abrasion of scalp-healing well-continue wound care as directed Laceration left arm-healing well-continue wound care-may leave open to air Contusion of left ico-eosrqvawc-ibqxbxfb to monitor Edema-elevate legs-follow up tomorrow for quick check of swelling 02/19/2016 Appointment: Sandra Mcdonald WPtel: [phone] [phone] [place] (15 min) Moderate 02/19/2016 Patient [...] edema. 02/08/2016 Appointment: Alexandria Barron WPtel: [phone] [facility] [place] (15 min) Moderate 02/08/2016 Patient Education: [...] of swelling. 07/18/2015 Appointment: Alexandria Barron WPtel: [facility] (15 min) Moderate 07/18/2015 Patient Education: Patient [...] improving. 04/03/2015 Appointment: Alexandria Barron WPtel: [phone] (15 min) Moderate 04/03/2015 Patient Education: Patient Medication Summary Completed 04/03/2015 Visit Plan: Rosacea-continue finacea as directed-add metronidazole cream twice daily-call if symptoms do not improve or if any worse. Qouxtdoasx-hbslbze-yzbwnfek with wraps-no change in treatment 02/27/2015 Appointment: [...] EGD. 12/05/2014 Appointment: Alexandria Barron WPtel: [phone] [place] ([place] New Patient 12/05/2014 Patient Education: Patient Medication Summary Completed 12/05/2014 Patient Education: Hypertension Completed 12/05/2014 Referral: Jose A Rios Referral Appointment Requested Referral: Alberta Wilks [address] [facility] Referral Appointment Requested Referral: Juan F Veronicamady [phone] [place] Referral Appointment Requested Referral: Jayro Wetzel [...] leave open to air Contusion of left utz-lkmovvefy-yqdlrtdi to monitor Edema-elevate legs-follow up tomorrow for [...] and understands the consequences of over-medication. . Left lower leg injury - The [...] do not improve or if any worse. Bpanfdaqhv-ahmfueu-puthjzyi with wraps-no change in treatment . Hypertension [...] to keep legs elevated when seated. . Hypertension - well controlled - [...] a paracentesis. Lymphedema - continue with compression Cream twice a day x 3 days, [...] - stop oxygen per pt request. . Hypertension - well controlled - continue [...] dose flu shot today in clinic. . Weeping edema bilateral lower legs - [...] continued elevation and monitoring of swelling. . Dressing change-return tomorrow . Skin lesion on face - lesion removed with scalpel and dressed with maycol, pt to RTC in 10 days for treatment of the lesion if not fully resolved.
--- NOTE | 2018-11-23 15:54 | ED EENT ---
History of Present Illness General Chief Complaint: Facial Problems Stated Complaint: MOUTH SWOLLEN Nursing Triage Note: PT TO [facility] BY WHEELCHAIR FROM [facility] WITH COMPLAINT OF LIP SWELLING. PT STATES LIPS STARTED SWELLING THIS AM. NO DIFFICULTY BREATHING, EATING, OR DRINKING. Source: patient Exam Limitations: no limitations History of Present Illness Date Seen by Provider: Nov 23, 2018 Time Seen by Provider: 14:56 Allergies and Home Medications Allergies Coded Allergies: Sulfa (Sulfonamide Antibiotics) (Verified Allergy, Unknown, 02/23/18) Home Medications Cholecalciferol (Vitamin D3) 2,000 Unit Capsule, 2,000 UNIT PO HS, (Reported) Cyclosporine 1 Each Droperette, 1 DROP OU BID, (Reported) Docusate Sodium 100 Mg Capsule, 100 MG PO BID, (Reported) Furosemide 40 Mg Tablet, 40 MG PO DAILY PRN for 2 LB WEIGHT GAIN, (Reported) Levothyroxine Sodium 100 Mcg Tablet, 100 MCG PO DAILY, (Reported) TAKES ALONG WITH 88MCG TABLET Levothyroxine Sodium 88 Mcg Tablet, 88 MCG PO SuTuWeFrSa, (Reported) TAKES ALONG WITH 100MCG TABLET 5 DAYS A WEEK Nadolol 20 Mg Tablet, 10 MG PO DAILY, (Reported) TAKES 1/2 (20MG) TABLET Oxycodone HCl 5 Mg Tablet, 10 MG PO BID, (Reported) TAKES 2 (5MG) TABLETS Potassium Chloride 10 Meq Tab.er.prt, 10 MEQ PO DAILY PRN for WHEN TAKING FUROSEMIDE, (Reported) Pramipexole Di-HCl 0.25 Mg Tablet, 0.25 MG PO BID, (Reported) Spironolactone 50 Mg Tablet, 50 MG PO DAILY, (Reported) Vit A/C/E/Zinc/Co 1 Cap Capsule, 1 CAP PO BID, (Reported) Past Rklkokg-Keujpd-Bxxdqk Hx Patient Social History Alcohol Use: Denies Use Recreational Drug Use: No Smoking Status: Former Smoker Type Used: Cigarettes Former Smoker, Quit: Jun 03, 1990 2nd Hand Smoke Exposure: No Recent Foreign Travel: No Contact w/Someone Who Travel: No Recent Infectious Disease Expo: No Recent Hopitalizations: No Immunizations Up To Date Tetanus Booster (TDap): Unknown Date of Pneumonia Vaccine: Jul 11, 2014 Date of Influenza Vaccine: Apr 08, 2018 Seasonal Allergies Seasonal Allergies: No Past Medical History Surgeries: Yes (RIGHT RCR, MULTI SKIN LESIONS REMOVED, LOWER BACK FUSION, LEFT MASTECTOMY, ) Respiratory: Yes (CPAP) Sleep Apnea Cardiac: Yes High Cholesterol Neurological: No Reproductive Disorders: No Sexually Transmitted Disease: No Genitourinary: No Gastrointestinal: Yes (polyp removed from colon) Liver Disease/Jaundice, Cirrhosis Musculoskeletal: Yes (arthritis) Arthritis Endocrine: Yes Hypothyroidsim HEENT: No (PRIOR CATARACT SURGERY) Cataract Cancer: Yes (LYMPHEDEMA) Breast Psychosocial: Yes Depression Integumentary: Yes (SKIN CANCER REMOVAL AREAS, LYMPHEDEMA LOWER EXT) Recent Skin Changes Blood Disorders: Yes (anemia, leukopenia and thrombocytopenia) Family Medical History Patient reports no known family medical history. Heart Disease Physical Exam Vital Signs Vital Signs - First Documented 11/23/18 14:35 Pulse 86 Resp 20 B/P (MAP) 124/73 (90) Pulse Ox 96 O2 Delivery Room Air Height, Weight, BMI Height: 5'2.00" Weight: 113lbs. 9.6oz. 51.217701mw; 22.2 BMI Method:Stated Progress/Results/Core Measures Results/Orders My Orders Orders - JC GALLO Loratadine Tablet (Claritin Tablet) (11/23/18 15:00) Diphenhydramine Tablet (Benadryl Tablet) (11/23/18 15:00) Medications Given in ED Current Medications Medications Dose Ordered Sig/Evelio Route Start Time Stop Time Status Last Admin Dose Admin Diphenhydramine HCl 25 mg ONCE ONCE PO 11/23/18 15:00 11/23/18 15:01 DC 11/23/18 15:17 25 MG Loratadine 10 mg ONCE ONCE PO 11/23/18 15:00 11/23/18 15:01 DC 11/23/18 15:17 10 MG Vital Signs/I&O 11/23/18 14:35 Pulse 86 Resp 20 B/P (MAP) 124/73 (90) Pulse Ox 96 O2 Delivery Room Air Blood Pressure Mean: 90 Departure Impression Primary Impression: Allergic reaction Additional Impression: Lip swelling Disposition: HOME, SELF-CARE Condition: Stable/Unchanged Departure-Patient Inst. Decision time for Depature: 15:52 Referrals: CHRISTOPHER BARRON MD (PCP/Family) Primary Care Physician Patient Instructions: Angioedema (DC) Add. Discharge Instructions: Continue to use Benadryl every 4 hours. Take loratadine 10 mg daily. Take prednisone as prescribed. Follow-up with Dr. Barron within 1 week. Have the care home call tomorrow morning to schedule an appointment time. Return back to the emergency room for worsening symptoms, shortness of breath, tongue or throat swelling, or any other concerns as needed. All discharge instructions reviewed with patient and/or family. Voiced understanding. Scripts Loratadine (Loratadine) 10 Mg Tablet 10 MG PO DAILY for 7 Days, #7 TAB Prov: JC GALLO 11/23/18 Prednisone (Prednisone) 20 Mg Tab 40 MG PO DAILY for 4 Days, #8 TAB Prov: JC GALLO 11/23/18 JC GALLO Nov 23, 2018 15:54
--- OUTSIDE RECORDS SUMMARY | 2018-11-23 15:56 | XMS REPORT | CCD ---
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 Name Role Phone PP Unavailable CCM Unavailable Summary Purpose Interface Exchange Insurance Providers Payer name Policy type / Coverage type Covered republican ID Effective Begin Date Effective End Date WPS Medicare Part B Medicare Part B [id number] Unknown Unknown [facility] Medicare Part B [id number] Unknown Unknown Family history Brother Diagnosis Age At Onset Diabetes Unknown Skin cancer Unknown Father Diagnosis Age At Onset Heart disease Unknown Mother Diagnosis Age At Onset advanced age Unknown Hypothyroid Unknown Social History Social History Element Codes Description Effective Dates Marital status Unknown Single 12/05/2014 Number of children Unknown 0 12/05/2014 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 Quit 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 quit 20-25 [...] Fill Instructions oxycodone 5 mg tablet RxNorm: 9326543 2 Tablet(s) PO BID 201708/29/2018 Active Lasix 40 mg tablet RxNorm: 645507 1 Tablet(s) PO daily as needed edema if more than 3 pounds weight gain in 48 hours 07/23/2018 11/19/2018 Active oxycodone 5 mg tablet RxNorm: 5783755 2 Tablet(s) PO BID 201707/30/2018 Inactive nadolol 20 mg tablet RxNorm: 431157 1/2 Tablet(s) PO daily No Stop Date Active oxycodone 5 mg tablet RxNorm: 7875682 2 Tablet(s) PO BID 201707/15/2018 Inactive nadolol 20 mg tablet RxNorm: 105548 1 Tablet(s) TAKE 1 TABLET BY MOUTH EVERY DAY 05/25/2018 06/21/2018 Inactive Generic For:*CORGARD 20 MG TABLET 05/21/2018 10:10: 43 AM spironolactone 50 mg tablet RxNorm: 245520 TAKE 1 TABLET BY MOUTH EVERY DAY 05/21/2018 06/03/2018 Inactive Generic For:ALDACTONE 50MG 05/21/2018 10:10:31 AM Ocuvite tablet RxNorm : 1 Tablet(s) PO BID 05/21/2018 06/03/2018 Inactive pramipexole 0.25 mg tablet RxNorm: 699130 TAKE 1 TABLET BY MOUTH TWICE DAILY 05/21/2018 06/03/2018 Inactive Generic For:MIRAPEX 0.25MG TAB 05/21/2018 10:10:48 AM levothyroxine 88 mcg tablet RxNorm: 752070 TAKE 1 TABLET BY MOUTH EVERY DAY WITH A 100MCG TABLET 05/21/2018 06/03/2018 Inactive Generic For:*SYNTHROID 0.088MG TAB 05/21/2018 10:10:11 AM levothyroxine 100 mcg tablet RxNorm: 422114 TAKE 1 TABLET BY MOUTH EVERY DAY , TAKE WITH AN 88 MCG TABLET 05/21/2018 Inactive Generic For:*SYNTHROID 100 MCG TABLET 05/21/2018 10:10:04 AM Vitamin D3 2,000 unit capsule RxNorm: 962066 1 Capsule(s) PO daily 05/21/2018 No Stop Date Active nadolol 20 mg tablet RxNorm: 640098 TAKE 1/2 TABLET BY MOUTH EVERY DAY 05/21/2018 05/24/2018 Inactive Generic For:*CORGARD 20 MG TABLET 05/21/2018 10:10:43 AM oxycodone 5 mg tablet RxNorm: 3253677 1 Tablet(s) PO QID as needed 05/15/2018 06/13/2018 Inactive pramipexole 0.25 mg tablet RxNorm: 540017 1 Tablet(s) PO BID 05/20/2018 Inactive Requip 0.25 mg tablet RxNorm: 641152 1 Tablet(s) PO BID 201705/03/2018 Inactive potassium chloride ER 10 mEq tablet,extended release RxNorm: 974991 1 Tablet(s) PO daily as needed when taking lasix 04/23/2018 08/20/2018 Active Lasix 40 mg tablet RxNorm: 780167 1 Tablet(s) PO daily as needed edema if more than 3 pounds weight loss in 48 hours 04/23/2018 07/22/2018 Inactive potassium chloride ER 10 mEq tablet,extended release RxNorm: 104776 1 Tablet(s) PO daily as needed when taking lasix 04/01/2018 04/22/2018 Inactive Lasix 40 mg tablet RxNorm: 657414 1 Tablet(s) PO daily as needed edema 04/01/2018 04/22/2018 Inactive oxycodone 5 mg tablet RxNorm: 0137505 1 Tablet(s) PO QID as needed 03/18/2018 04/16/2018 Inactive levothyroxine 88 mcg tablet RxNorm: 775502 1 Tablet(s) PO daily . Take with 100 mcg tablet. 02/19/2018 05/20/2018 Inactive spironolactone 50 mg tablet RxNorm: 329801 Tablet(s) TAKE 1 TABLET BY MOUTH DAILY 02/19/2018 05/20/2018 Inactive levothyroxine 100 mcg tablet RxNorm: 928563 1 Tablet(s) PO daily . Take with 88 mcg tablet 02/19/2018 02/18/2018 Inactive levothyroxine 88 mcg tablet RxNorm: 768045 1 Tablet(s) PO daily . Take with 100 mcg tablet. 02/19/2018 02/18/2018 Inactive levothyroxine 100 mcg tablet RxNorm: 958973 1 Tablet(s) PO daily . Take with 88 mcg tablet 02/19/2018 05/20/2018 Inactive spironolactone 25 mg tablet RxNorm: 089088 1 Tablet(s) PO daily 02/12/2018 02/18/2018 Inactive pt will let you know when she is ready for the refill oxycodone 10 mg tablet RxNorm: 9078369 1 Tablet(s) PO TID as needed 02/12/2018 03/13/2018 Inactive oxycodone 10 mg tablet RxNorm: 4710118 1 Tablet(s) PO Q6 as needed 01/22/2018 02/11/2018 Inactive spironolactone 50 mg tablet RxNorm: 189738 TAKE 1 TABLET BY MOUTH DAILY 01/05/2018 02/11/2018 Inactive Generic For:ALDACTONE 50MG 01/05/2018 8:27:46 AM Kenalog 40 mg/mL suspension for injection RxNorm: 8779020 1 Milliliter(s) Inj 12/26/2017 12/26/2017 Inactive Zithromax Z-Fransisco 250 mg tablet RxNorm: 637703 1 Tablet(s) PO UD 12/26/2017 12/30/2017 Inactive oxycodone 10 mg tablet RxNorm: 5136836 1 Tablet(s) PO Q6 as needed 11/25/2017 12/24/2017 Inactive nystatin 100,000 unit/gram topical powder RxNorm: 225887 1 Application TOP BID 11/13/2017 No Stop Date Active nystatin 100,000 unit/gram topical cream RxNorm: 978084 Gram(s) TOP QID 11/12/2017 11/18/2017 Inactive nystatin 100,000 unit/gram topical cream RxNorm: 624118 Gram(s) TOP QID 11/12/2017 11/11/2017 Inactive Lasix 20 mg tablet RxNorm: 091161 1 Tablet(s) PO daily as needed edema 11/03/2017 11/07/2017 Inactive potassium chloride ER 10 mEq tablet,extended release RxNorm: 610397 1 Tablet(s) PO daily while on the lasix 11/03/201701/2018 Inactive Keflex 500 mg capsule RxNorm: 842889 1 Capsule(s) PO TID 201711/07/2017 Inactive potassium chloride ER 10 mEq tablet,extended release RxNorm: 066337 1 Tablet(s) PO daily while on the lasix 10/29/2017 Inactive Lasix 20 mg tablet RxNorm: 620653 1 Tablet(s) PO daily as needed edema 10/29/2017 10/31/2017 Inactive oxycodone 10 mg tablet RxNorm: 9979484 1 Tablet(s) PO Q6 as needed 09/29/2017 10/28/2017 Inactive levothyroxine 200 mcg tablet RxNorm: 600972 TAKE 1 TABLET BY MOUTH DAILY 09/01/2017 02/18/2018 Inactive Generic For:*SYNTHROID 0.2MG TAB 09/01/2017 8:36:32 AM Bactrim DS 800 mg-160 mg tablet RxNorm: 924788 1 Tablet(s) PO BID 08/07/2017 08/16/2017 Inactive Bactrim DS 800 mg-160 mg tablet RxNorm: 679663 1 Tablet(s) PO BID 08/07/2017 08/06/2017 Inactive oxycodone 10 mg tablet RxNorm: 3607723 1 Tablet(s) PO Q6 as needed 07/31/2017 08/29/2017 Inactive spironolactone 50 mg tablet RxNorm: 745260 1 Tablet(s) PO daily 06/30/2017 12/26/2017 Inactive Not due for a refill until next month nadolol 20 mg tablet RxNorm: 797272 1 Tablet(s) PO daily 201611/28/2017 Inactive nadolol 20 mg tablet RxNorm: 158023 1/2 Tablet(s) PO daily 11/28/2017 Inactive nadolol 20 mg tablet RxNorm: 015330 1/2 Tablet(s) PO daily 05/21/2017 Inactive oxycodone 10 mg tablet RxNorm: 2894381 1 Tablet(s) PO Q6 as needed 04/01/2017 04/30/2017 Inactive levothyroxine 200 mcg tablet RxNorm: 547826 TAKE 1 TABLET BY MOUTH DAILY 03/10/2017 08/31/2017 Inactive Generic For:*SYNTHROID 0.2MG TAB 03/10/2017 8:49:05 AM potassium chloride ER 10 mEq tablet,extended release RxNorm: 317633 1 Tablet(s) PO daily while on the lasix 02/18/2017 Inactive Lasix 20 mg tablet RxNorm: 877280 1 Tablet(s) PO daily as needed edema 02/18/2017 02/20/2017 Inactive Keflex 500 mg capsule RxNorm: 343221 1 Capsule(s) PO TID 201602/16/2017 Inactive Lasix 20 mg tablet RxNorm: 499397 1 Tablet(s) PO daily 201602/15/2017 Inactive potassium chloride ER 10 mEq tablet,extended release RxNorm: 039722 1 Tablet(s) PO daily while on the lasix 02/14/2017 Inactive Lasix 20 mg tablet RxNorm: 708401 1 Tablet(s) PO daily 201602/13/2017 Inactive potassium chloride ER 10 mEq tablet,extended release RxNorm: 910869 1 Tablet(s) PO daily while on the lasix 02/14/2017 Inactive oxycodone 10 mg tablet RxNorm: 1664503 1 Tablet(s) PO Q6 as needed 02/05/2017 03/06/2017 Inactive minocycline 50 mg tablet RxNorm: 244415 1 Tablet(s) PO Q72H 12/03/2017 Inactive spironolactone 50 mg tablet RxNorm: 508904 1 Tablet(s) PO daily 12/18/2016 06/15/2017 Inactive Not due for a refill until next month oxycodone 10 mg tablet RxNorm: 3749923 1 Tablet(s) PO Q6 as needed 12/05/2016 01/03/2017 Inactive nadolol 20 mg tablet RxNorm: 652329 1 Tablet(s) PO daily 201604/15/2017 Inactive oxycodone 10 mg tablet RxNorm: 2361614 1 Tablet(s) PO Q6 as needed 09/30/2016 10/29/2016 Inactive levothyroxine 200 mcg tablet RxNorm: 737397 TAKE 1 TABLET BY MOUTH DAILY 09/12/2016 03/09/2017 Inactive Generic For:*SYNTHROID 0.2MG TAB 09/12/2016 8:41:27 AM oxycodone 10 mg tablet RxNorm: 0688485 1 Tablet(s) PO Q6 as needed 08/06/2016 09/04/2016 Inactive oxycodone 10 mg tablet RxNorm: 4528593 1 Tablet(s) PO Q6 as needed 06/10/2016 07/09/2016 Inactive oxycodone 10 mg tablet RxNorm: 6754808 1 Tablet(s) PO Q6 as needed 04/05/2016 05/04/2016 Inactive levothyroxine 200 mcg tablet RxNorm: 551337 1 Tablet(s) PO daily 03/14/2016 09/09/2016 Inactive oxycodone 10 mg tablet RxNorm: 2539505 1 Tablet(s) PO Q6 as needed 02/08/2016 03/08/2016 Inactive Kenalog 40 mg/mL suspension for injection RxNorm: 4620952 Milliliter(s) Inj 11/16/2015 11/16/2015 Inactive Zithromax Z-Fransisco 250 mg tablet RxNorm: 203632 1 Tablet(s) PO UD 11/16/2015 11/20/2015 Inactive zpack, take probiotic while on abx oxycodone 10 mg tablet RxNorm: 6664360 1 Tablet(s) PO Q6 as needed 11/16/2015 02/07/2016 Inactive ceftriaxone 500 mg solution for injection RxNorm: 2017316 Inj 11/16/2015 11/16/2015 Inactive oxycodone 10 mg tablet RxNorm: 0791562 1 Tablet(s) PO Q6 as needed 10/11/2015 11/15/2015 Inactive levothyroxine 200 mcg tablet RxNorm: 258612 1 Tablet(s) PO daily 09/14/2015 03/11/2016 Inactive oxycodone 10 mg tablet RxNorm: 5416117 1 Tablet(s) PO Q6 as needed 08/10/2015 10/10/2015 Inactive Keflex 500 mg capsule RxNorm: 683671 1 Capsule(s) PO TID 201407/03/2015 Inactive Keflex 500 mg capsule RxNorm: 511307 1 Capsule(s) PO TID 201406/25/2015 Inactive oxycodone 10 mg tablet RxNorm: 5823399 1 Tablet(s) PO Q6 as needed 04/03/2015 08/09/2015 Inactive oxycodone 10 mg tablet RxNorm: 0263548 1 Tablet(s) PO Q6 as needed 02/14/2015 04/02/2015 Inactive Keflex 500 mg capsule RxNorm: 961074 1 Capsule(s) PO TID 201401/22/2015 Inactive Culturelle 10 billion cell capsule RxNorm: 468668 1 Capsule(s) PO daily 01/16/2015 02/14/2015 Inactive Dulcolax Stool Softener (docusate) 100 mg capsule RxNorm: 6376166 1 Capsule(s) PO daily 12/05/2014 02/11/2018 Inactive [SAVINGS FOR NON-COVERED DRUGS -- BIN:[id number], PCN: [id number], Group: [id number], ID# [id number], Questions: . THIS IS NOT INSURANCE.] Restasis 0.05 % eye drops in a dropperette RxNorm: 986119 1 Drop(s) OPH BID No Start Date Active Vitamin D3 2,000 unit capsule RxNorm: 290890 1 Capsule(s) PO daily No Start Date 05/20/2018 Inactive minocycline 50 mg tablet RxNorm: 177537 1 Tablet(s) PO QHS No Start Date 01/20/2017 Inactive nadolol 20 mg tablet RxNorm: 504456 1 Tablet(s) PO daily No Start Date 11/05/2016 Inactive nadolol 20 mg tablet RxNorm: 847310 1 Tablet(s) PO daily No Start Date 11/05/2016 Inactive Ocuvite tablet RxNorm : 1 Tablet(s) PO BID No Start Date 05/20/2018 Inactive oxycodone 10 mg tablet RxNorm: 6409906 1 Tablet(s) PO Q6 as needed No Start Date 02/13/2015 Inactive Dulcolax Stool Softener (docusate) 100 mg capsule RxNorm: 9702907 1 Capsule(s) PO BID No Start Date 12/04/2014 Inactive Multivitamin 50 Plus tablet RxNorm: 1 Tablet(s) PO QAM No Start Date 02/11/2018 Inactive Finacea 15 % topical gel RxNorm: 4324269 TOP No Start Date 05/24/2018 Inactive Synthroid 200mcg Oral RxNorm: oral No Start Date 09/13/2015 Inactive spironolactone 50 mg tablet RxNorm: 253846 1 Tablet(s) PO daily No Start Date 12/17/2016 Inactive spironolactone 50 mg tablet RxNorm: 849343 1 Tablet(s) PO daily No Start Date 02/11/2018 Inactive Medication Administered Medication Codes Instructions Start Date Status Kenalog 40 mg/mL suspension for injection RxNorm: 4511835 1Milliliter 12/26/2017 No longer Active ceftriaxone 500 mg solution for injection RxNorm: 6586159 11/16/2015 No longer Active Kenalog 40 mg/mL suspension for injection RxNorm: 5002560 Milliliter 11/16/2015 No longer Active Immunizations Vaccine [...] subsequent encounter ICD-10: S00.01XD ICD-9: V58.89 02/19/2016 Hypothyroidism, unspecified ICD-10: E03.9 ICD-9: 244.9 02/08/2016 Laceration without foreign body of left upper arm, initial encounter ICD-10: S41.112A ICD-9: 880.03 02/08/2016 Abrasion of scalp, initial encounter ICD-10: S00.01XA ICD-9: 910.1 02/08/2016 Contusion of left lower leg, initial encounter ICD-10: S80.12XA ICD-9: 924.10 02/08/2016 Allergic rhinitis due to pollen ICD-10: J30.1 ICD-9: 477.0 11/16/2015 Acute upper respiratory infection, unspecified ICD-10: J06.9 ICD-9: 465.9 11/16/2015 Contusion of left lower leg, initial encounter ICD-10: S80.12XA ICD-9: 924.5 06/19/2015 CELLULITIS ICD-9: 682.9 04/03/2015 HYPOTHYROIDISM ICD-9: 244.9 04/03/2015 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 04/03/2015 Lymphedema ICD-9: 457.1 02/27/2015 Rosacea, acne ICD-9: 695.3 02/27/2015 Right leg swelling ICD-9: 729.81 2014 CELLULITIS OF LEG ICD-9: 682.6 2014 Sacroiliitis ICD-9: 720.2 12/05/2014 Back pain ICD-9: 724.5 12/05/2014 Chronic pain ICD-9: 338.29 12/05/2014 Dysphagia ICD-9: 787.20 12/05/2014 Reason For [...] Item Item Code Result Date Free T4 Fcl090 FREE T4 1.92 ng/dL 04/24/2018 Comp Metabolic Wld796 NA 138 mEq/L 04/24/2018 Comp Metabolic Fnq854 K 3.9 mEq/L 04/24/2018 Comp Metabolic Kqy902 CL 97 mEq/L 04/24/2018 Comp Metabolic Gqb133 CO2 32.0 mEq/L 04/24/2018 Comp Metabolic Uua170 ANION GAP 13 04/24/2018 Comp Metabolic Suk912 GLUCOSE 194 mg/dL 04/24/2018 Comp Metabolic Vqi863 Creat 0.8 mg/dL 04/24/2018 Comp Metabolic Vfa829 eGFR 70 ml/min/1.73m2 04/24/2018 Comp Metabolic Rts496 BUN 20 mg/dL 04/24/2018 Comp Metabolic Xzs195 B/C Ratio 24.1 Ratio 04/24/2018 Comp Metabolic Agg246 CALCIUM 9.4 mg/dL 04/24/2018 Comp Metabolic Ioj556 ALK PHOS 110 U/L 04/24/2018 Comp Metabolic Nil913 AST(SGOT) 33 U/L 04/24/2018 Comp Metabolic Iej174 ALT(SGPT) 16 U/L 04/24/2018 Comp Metabolic Mhe210 BILI T 1.8 mg/dL 04/24/2018 Comp Metabolic Zxv757 ALBUMIN 4.0 g/dL 04/24/2018 Comp Metabolic Jlj025 TPRO 5.7 g/dL 04/24/2018 Comp Metabolic Iab837 GLOB 1.7 g/dL 04/24/2018 Comp Metabolic Mlo629 A/G Ratio 2.3 Ratio 04/24/2018 Comp Metabolic Atp299 Osmo 284 mOsmo 04/24/2018 Cbc With Differential [...] 31.1 pg 04/24/2018 Cbc With Differential Ord2 Montgomery% 13.0 % 04/24/2018 Cbc With Differential Ord2 [...] 1.00 K/ul 04/24/2018 Cbc With Differential Ord2 [place] ABS# 0.4 K/ul 04/24/2018 Cbc With Differential Ord2 Eos ABS# 0.0 K/ul 04/24/2018 Cbc With Differential Ord2 Baso ABS# 0.0 K/ul 04/24/2018 Tsh Ord6 TSH (3rd IS) 0.11 uIU/mL 04/24/2018 Tsh Ord6 TSH (3rd IS) 0.07 uIU/mL 02/13/2018 Free T4 Ivd618 FREE T4 1.85 ng/dL 02/13/2018 %Hba1C Lfs926 % HbA1c 40622-0 5.9 % 01/21/2017 %Hba1C Rdi520 Gluc Ave 123 mg/dL 01/21/2017 Comp Metabolic Rxw991 NA 136 mEq/L 01/21/2017 Comp Metabolic Oot250 K 4.3 mEq/L 01/21/2017 Comp Metabolic Cgz732 CL 99 mEq/L 01/21/2017 Comp Metabolic Ejt357 CO2 30.0 mEq/L 01/21/2017 Comp Metabolic Ftm572 ANION GAP 11 01/21/2017 Comp Metabolic Mac428 GLUCOSE 234 mg/dL 01/21/2017 Comp Metabolic Oaf835 Creat 0.5 mg/dL 01/21/2017 Comp Metabolic Qln046 eGFR 115 ml/min/1.73m2 01/21/2017 Comp Metabolic Xzr921 BUN 10 mg/dL 01/21/2017 Comp Metabolic Nnp279 B/C Ratio 18.5 Ratio 01/21/2017 Comp Metabolic Dyr136 CALCIUM 8.8 mg/dL 01/21/2017 Comp Metabolic Fld606 ALK PHOS 74 U/L 01/21/2017 Comp Metabolic Ozi670 AST(SGOT) 28 U/L 01/21/2017 Comp Metabolic Kis376 ALT(SGPT) 15 U/L 01/21/2017 Comp Metabolic Tct603 BILI T 1.1 mg/dL 01/21/2017 Comp Metabolic Cyi181 ALBUMIN 3.8 g/dL 01/21/2017 Comp Metabolic Beu030 TPRO 5.8 g/dL 01/21/2017 Comp Metabolic Yid870 GLOB 2.0 g/dL 01/21/2017 Comp Metabolic Ysm672 A/G Ratio 1.9 Ratio 01/21/2017 Comp Metabolic Jhs779 Osmo 279 mOsmo 01/21/2017 Tsh Ord6 hTSH II 0.80 uIU/mL 04/03/2015 Bili D Ord93 BILI D 0.1 mg/dL 04/03/2015 Bili D Ord93 BILI I 0.9 mg/dL 04/03/2015 Free T4 Zho942 FREE T4 1.27 ng/dL 04/03/2015 Cbc With [...] Ord2 RDW 15.6 % 04/03/2015 Comp Metabolic Jke854 NA 136 mEq/L 04/03/2015 Comp Metabolic Dfh073 K 4.3 mEq/L 04/03/2015 Comp Metabolic Tsx085 CL 99 mEq/L 04/03/2015 Comp Metabolic Efd339 CO2 29.0 mEq/L 04/03/2015 Comp Metabolic Oln766 ANION GAP 12 04/03/2015 Comp Metabolic Ixm918 GLUCOSE 120 mg/dL 04/03/2015 Comp Metabolic Oxr180 Creat 0.5 mg/dL 04/03/2015 Comp Metabolic Oyw637 eGFR 118 ml/min/1.73m2 04/03/2015 Comp Metabolic Svo524 BUN 11 mg/dL 04/03/2015 Comp Metabolic Jwj838 B/C Ratio 20.8 Ratio 04/03/2015 Comp Metabolic Hpx246 CALCIUM 9.3 mg/dL 04/03/2015 Comp Metabolic Pat694 ALK PHOS 61 U/L 04/03/2015 Comp Metabolic Dhw564 AST(SGOT) 28 U/L 04/03/2015 Comp Metabolic Pxw464 ALT(SGPT) 16 U/L 04/03/2015 Comp Metabolic Vzl726 BILI T 1.0 mg/dL 04/03/2015 Comp Metabolic Jsi116 ALBUMIN 4.1 g/dL 04/03/2015 Comp Metabolic Ltd711 TPRO 6.1 g/dL 04/03/2015 Comp Metabolic Fag071 GLOB 2.0 g/dL 04/03/2015 Comp Metabolic Hbp972 A/G Ratio 2.1 Ratio 04/03/2015 Comp Metabolic Wfk961 Osmo 273 mOsmo 04/03/2015 Review of Systems [...] FLU VACC PRSV FREE INC ANTIG CPT-4: 77565 04/23/2018 TRIAMCINOLONE ACET INJ NOS CPT-4: J3301 12/26/2017 ADMIN INFLUENZA VIRUS VAC CPT-4: G0008 04/16/2017 FLU VACC PRSV FREE INC ANTIG CPT-4: 53672 04/16/2017 TRIAMCINOLONE ACET INJ NOS CPT-4: J3301 [...] Code : 8480-6 BMI: 23.6 Code : 19276-0 Heart Rate 1 : 59 bpm Height: 5'1" Respiratory Rate: 18 bpm SpO2: 99% Temperature: 37.0 (C) / 98.6 (F ) Weight: 125 lbs 04/23/2018 Blood Pressure 2: 118/62 Code : 8480-6 BMI: 22.3 Code : 38392-6 Heart Rate 1 : 73 bpm Height: 5'1" SpO2: 97% Weight: 118 lbs 04/01/2018 Blood Pressure 1: 136/72 Code : 8480-6 BMI: 26.6 Code : 46850-0 Heart Rate 1 : 75 bpm Height: 5'1" SpO2: 98% Weight: 141 lbs 03/18/2018 Blood Pressure 1: 132/62 Code : 8480-6 Heart Rate 1: 61 bpm Height: 5'1" SpO2: 96% Weight: 03/09/2018 Blood Pressure 1: 122/60 Code : 8480-6 Heart Rate 1: 65 bpm Height: 5'1" SpO2: 98% Weight: 02/12/2018 Blood Pressure 1: 100/68 Code : 8480-6 BMI: 24.3 Code : 60587-9 Heart Rate 1 : 68 bpm Height: 5'1" SpO2: 96% Weight: 128 lbs 13 oz 12/26/2017 Blood Pressure 1: 126/68 Code : 8480-6 BMI: 26.7 Code : 18972-4 Heart Rate 1 : 66 bpm Height: 5'1" SpO2: 98% Temperature: 36.8 (C) / 98.2 (F) Weight: 141 lbs 8 oz 12/04/2017 Blood Pressure 1: 132/76 Code : 8480-6 BMI: 26.5 Code : 31854-1 Heart Rate 1 : 73 bpm Height: 5'1" SpO2: 96% Weight: 140 lbs 11/13/2017 Blood Pressure 1: 126/62 Code : 8480-6 Heart Rate 1: 69 bpm Height: 5'1" SpO2: 96% Weight: 11/06/2017 Blood Pressure 1: 142/84 Code : 8480-6 BMI: 25.7 Code : 19674-5 Heart Rate 1 : 78 bpm Height: 5'1" SpO2: 95% Temperature: 36.9 (C) / 98.5 (F) Weight: 136 lbs 10/29/2017 Blood Pressure 1: 132/68 Code : 8480-6 BMI: 26.8 Code : 44116-3 Heart Rate 1 : 70 bpm Height: 5'1" SpO2: 98% Weight: 142 lbs 09/04/2017 Blood Pressure 1: 132/74 Code : 8480-6 BMI: 25.9 Code : 27659-7 Heart Rate 1 : 68 bpm Height: 5'1" SpO2: 96% Weight: 137 lbs 08/08/2017 Blood Pressure 1: 118/72 Code : 8480-6 BMI: 26.6 Code : 52826-8 Heart Rate 1 : 68 bpm Height: 5'1" SpO2: 95% Weight: 141 lbs 05/29/2017 Blood Pressure 1: 142/78 Code : 8480-6 BMI: 26.3 Code : 92653-1 Heart Rate 1 : 65 bpm Height: 5'1" SpO2: 95% Weight: 139 lbs 04/16/2017 Blood Pressure 1: 136/62 Code : 8480-6 BMI: 27.4 Code : 85877-2 Heart Rate 1 : 38 bpm Height: 5'1" SpO2: 98% Weight: 145 lbs 02/10/2017 Blood Pressure 1: 124/70 Code : 8480-6 BMI: 27.4 Code : 84743-2 Heart Rate 1 : 70 bpm Height: 5'1" SpO2: 96% Weight: 145 lbs 01/21/2017 Blood Pressure 1: 120/70 Code : 8480-6 BMI: 27.2 Code : 31118-2 Heart Rate 1 : 65 bpm Height: 5'1" SpO2: 95% Weight: 144 lbs 12/18/2016 Blood Pressure 1: 122/74 Code : 8480-6 BMI: 27.4 Code : 73024-2 Heart Rate 1 : 66 bpm Height: 5'1" SpO2: 97% Weight: 145 lbs 08/26/2016 Blood Pressure 1: 110/64 Code : 8480-6 BMI: 28.0 Code : 82161-1 Heart Rate 1 : 67 bpm Height: 5'1" SpO2: 97% Weight: 148 lbs 02/27/2016 Blood Pressure 1: 126/74 Code : 8480-6 Heart Rate 1: 67 bpm Height: 5'1" SpO2: 97% 02/19/2016 Blood Pressure 1: 130/80 Code : 8480-6 BMI: 28.2 Code : 06764-7 Heart Rate 1 : 74 bpm Height: 5'1" SpO2: 96% Weight: 149 lbs 02/08/2016 Blood Pressure 1: 122/78 Code : 8480-6 BMI: 28.2 Code : 03114-1 Heart Rate 1 : 63 bpm Height: 5'1" SpO2: 96% Weight: 149 lbs 11/16/2015 Blood Pressure 1: 128/70 Code : 8480-6 BMI: 27.8 Code : 00516-8 Heart Rate 1 : 64 bpm Height: 5'1" SpO2: 97% Weight: 147 lbs 07/18/2015 Blood Pressure 1: 110/60 Code : 8480-6 BMI: 28.5 Code : 30587-6 Heart Rate 1 : 61 bpm Height: 5'1" SpO2: 97% Weight: 151 lbs 06/27/2015 Blood Pressure 1: 122/60 Code : 8480-6 BMI: 28.9 Code : 79834-9 Heart Rate 1 : 63 bpm Height: 5'1" SpO2: 95% Weight: 153 lbs 06/19/2015 Blood Pressure 1: 120/78 Code : 8480-6 Heart Rate 1: 68 bpm SpO2: 96% Weight: 154 lbs 04/03/2015 Blood Pressure 1: 128/68 Code : 8480-6 BMI: 29.1 Code : 40526-6 Heart Rate 1 : 70 bpm Height: 5'1" SpO2: 97% Weight: 154 lbs 02/27/2015 Blood Pressure 1: 122/84 Code : 8480-6 BMI: 29.5 Code : 20054-7 Heart Rate 1 : 67 bpm Height: 5'1" SpO2: 95% Weight: 156 lbs 01/26/2015 Blood Pressure 1: 132/70 Code : 8480-6 BMI: 30.2 Code : 38712-7 Heart Rate 1 : 76 bpm Height: 5'1" Weight: 160 lbs 01/16/2015 Blood Pressure 1: 140/70 Code : 8480-6 BMI: 30.0 Code : 44798-2 Heart Rate 1 : 78 bpm Height: 5'1" Respiratory Rate: 20 bpm Weight: 159 lbs 12/05/2014 Blood Pressure 1: 138/78 Code : 8480-6 BMI: 30.8 Code : 06420-5 Heart Rate 1 : 76 bpm Height: [...] ill contacts 07/23/2018 she is in a fpc [employer] recumbent position 07/23/2018 None Pertinent Findings [...] ill contacts 07/07/2018 she is in a fpc [employer] recumbent position 07/07/2018 None Hospital Follow [...] data Encounters Encounter Performer Location Codes Date 85340 EST. PATIENT, LEVEL IV Diagnosis: Essential (primary) hypertension[ICD10: I10] Diagnosis: Lymphedema, not elsewhere classified[ICD10: I89.0] Diagnosis: Other ascites[ICD10: R18.8] Alexandria Barron MD, [facility] CPT- 4: 20199 07/23/2018 ([id number]) 69730 EST. PATIENT, LEVEL IV Diagnosis: Essential (primary) hypertension[ICD10: I10] Diagnosis: Atrophy of thyroid (acquired)[ICD10: E03.4] Diagnosis: Lymphedema, not elsewhere classified[ICD10: I89.0] Alexandria Barron MD, [facility] CPT-4: 92735 07/07/2018 ([id number]) 71569 EST. PATIENT, LEVEL IV Diagnosis: Essential (primary) hypertension[ICD10: I10] Diagnosis: Localized edema[ICD10: R60.0] Alexandria Barron MD, [facility] CPT- 4: 28166 06/22/2018 ([id number]) 97147 EST. PATIENT, LEVEL IV Diagnosis: Atrophy of thyroid (acquired)[ICD10: E03.4] Diagnosis: Essential (primary) hypertension[ICD10: I10] Diagnosis: Other chronic pain[ICD10: G89.29] Diagnosis: Pain in left knee[ICD10: M25.562] Diagnosis: Low back pain[ICD10: M54.5] Alexandria Barron MD, [facility] CPT- 4: 40408 05/25/2018 [id number]) [id number] EST. 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 PATIENT, LEVEL IV Diagnosis: Essential (primary) hypertension[ICD10: I10] Diagnosis: Low back pain[ICD10: M54.5] Diagnosis: Localized edema[ICD10: R60.0] Diagnosis: Other chronic pain[ICD10: G89.29] Diagnosis: Obstructive sleep apnea (adult) (pediatric)[ICD10: G47.33] Alexandria Barron MD , [facility] CPT-4: 51110 04/01/2018 ([id number]) [id number] EST. PATIENT, LEVEL IV Diagnosis: Essential (primary) hypertension[ICD10: I10] Diagnosis: Other chronic pain[ICD10: G89.29] Diagnosis: Unsteadiness on feet[ICD10: R26.81] Alexandria Barron MD, [facility] CPT-4: 19954 03/18/2018 ([id number]) [id number] EST. PATIENT, LEVEL IV Diagnosis: Low back pain[ICD10: M54.5] Diagnosis: Localized edema[ICD10: R60.0] Diagnosis: Essential (primary) hypertension[ICD10: I10] Diagnosis: Other chronic pain[ICD10: G89.29] Diagnosis: Pressure ulcer of left buttock, stage 1[ICD10: L89.321] Diagnosis: Obstructive sleep apnea (adult) (pediatric)[ICD10: G47.33] Alexandria Barron MD , [facility] CPT-4: 88692 03/09/2018 ([id number]) 21157 EST. PATIENT, LEVEL IV Diagnosis: Atrophy of thyroid (acquired)[ICD10: E03.4] Diagnosis: Essential (primary) hypertension[ICD10: I10] Diagnosis: Localized edema[ICD10: R60.0] Diagnosis: Other chronic pain[ICD10: G89.29] [facility] CPT-4: 48944 02/12/2018 ([id number]) 08368 EST. PATIENT, LEVEL III Diagnosis: Cough[ICD10: R05] Diagnosis: Acute bronchitis, unspecified[ICD10: J20.9] Sandra Barron MD, [facility] CPT-4: 58023 12/26/2017 ([id number]) 50123 EST. PATIENT, LEVEL IV Diagnosis: Essential (primary) hypertension[ICD10: I10] Diagnosis: Other specified noninfective disorders of lymphatic vessels and lymph nodes[ICD10: I89.8] Diagnosis: Atrophy of thyroid (acquired)[ICD10: E03.4] Alexandria Barron MD, [facility] CPT-4: 50138 12/04/2017 95710 EST. PATIENT, LEVEL III Diagnosis: Candidiasis of skin and nail[ICD10: B37.2] Светлана Barron MD, [facility] CPT-4: 33303 11/13/2017 ([id number]) 32710 EST. PATIENT, LEVEL III Diagnosis: Lymphedema, not elsewhere classified[ICD10: I89.0] Diagnosis: Low back pain[ICD10: M54.5] Diagnosis: Localized edema[ICD10: R60.0] Alexandria Barron MD, [facility] CPT- 4: 79574 11/06/2017 ([id number]) Miscellaneous no charge Diagnosis: Localized edema[ICD10: R60.0] Diagnosis: Cellulitis of right lower limb[ICD10: L03.115] Diagnosis: Cellulitis of left lower limb[ICD10: L03.116] Светлана Barron MD, [facility] CPT-4: 13427 11/03/2017 72698 EST. PATIENT, LEVEL III Diagnosis: Cellulitis of left lower limb[ICD10: L03.116] Diagnosis: Localized edema[ICD10: R60.0] Светлана Barron MD, [facility] CPT-4 : 65144 10/29/2017 ([id number]) 31074 EST. PATIENT, LEVEL IV Diagnosis: Essential (primary) hypertension[ICD10: I10] Diagnosis: Atrophy of thyroid (acquired)[ICD10: E03.4] Diagnosis: Pain in left knee[ICD10: M25.562] Diagnosis: Stiffness of left hand, not elsewhere classified[ICD10: M25.642] Diagnosis: Stiffness of right hand, not elsewhere classified[ICD10: M25.641] Alexandria Barron MD, [facility] CPT-4: 17585 09/04/2017 ([id number]) 52642 EST. PATIENT, LEVEL III Diagnosis: Other viral warts[ICD10: B07.8] Diagnosis: Other skin changes[ICD10: R23.8] Alexandria Barron MD, [facility] CPT-4: 34194 08/08/2017 ([id number]) 90358 EST. PATIENT, LEVEL IV Diagnosis: Essential (primary) hypertension[ICD10: I10] Diagnosis: Atrophy of thyroid (acquired)[ICD10: E03.4] Diagnosis: Low back pain[ICD10: M54.5] Alexandria Barron MD, [facility] CPT- 4: 85245 05/29/2017 ([id number]) 23174 EST. PATIENT, LEVEL IV Diagnosis: Essential (primary) hypertension[ICD10: I10] Diagnosis: Atrophy of thyroid (acquired)[ICD10: E03.4] Diagnosis: Encounter for immunization[ICD10: Z23] Diagnosis: Sick sinus syndrome[ICD10: I49.5] Alexandria Barron MD, [facility] CPT-4: 64647 04/16/2017 ([id number]) Miscellaneous no charge Diagnosis: Cellulitis of left lower limb[ICD10: L03.116] Светлана Barron MD, [facility] CPT-4: 83133 02/24/2017 94599 EST. PATIENT, LEVEL III Diagnosis: Cellulitis of left lower limb[ICD10: L03.116] Diagnosis: Cellulitis of right lower limb[ICD10: L03.115] Светлана Barron MD, [facility] CPT-4: 48403 02/10/2017 ([id number]) 19651 EST. PATIENT, LEVEL IV Diagnosis: Essential (primary) hypertension[ICD10: I10] Diagnosis: Other abnormal glucose[ICD10: R73.09] Diagnosis: Localized edema[ICD10: R60.0] Alexandria Barron MD, [facility] CPT- 4: 99266 01/21/2017 00656 EST. PATIENT, LEVEL IV Diagnosis: Essential (primary) hypertension[ICD10: I10] Diagnosis: Pain in left knee[ICD10: M25.562] Diagnosis: Atrophy of thyroid (acquired)[ICD10: E03.4] Alexandria Barron MD, [facility] CPT-4: 71413 12/18/2016 ([id number]) 08383 EST. PATIENT, LEVEL IV Diagnosis: Essential (primary) hypertension[ICD10: I10] Diagnosis: Pain in left knee[ICD10: M25.562] Diagnosis: Other instability, left knee[ICD10: M25.362] Diagnosis: Other chronic pain[ICD10: G89.29] Alexandria Barron MD, [facility] CPT-4: 34871 08/26/2016 ([id number]) 75657 EST. PATIENT, LEVEL III Diagnosis: Localized edema[ICD10: R60.0] Sandra Barron MD, [facility] CPT-4: 28023 02/27/2016 ([id number]) Miscellaneous no charge Diagnosis: Lymphedema, not elsewhere classified[ICD10: I89.0] Sandra Barron MD, [facility] CPT-4: 99456 02/20/2016 ([id number]) 98498 EST. PATIENT, LEVEL III Diagnosis: Contusion of left lower leg, subsequent encounter[ICD10: S80.12XD] Diagnosis: Abrasion of scalp, subsequent encounter[ICD10: S00.01XD] Diagnosis: Laceration without foreign body of left upper arm, subsequent encounter[ICD10: S41.112D] Diagnosis: Localized edema[ICD10: R60.0] Sandra Barron MD, [facility] CPT-4: 14394 02/19/2016 ([id number]) Miscellaneous no charge Diagnosis: Laceration without foreign body of left upper arm, subsequent encounter[ICD10: S41.112D] Diagnosis: Abrasion of scalp, subsequent encounter[ICD10: S00.01XD] Sandra Barron MD , [facility] CPT-4: 82759 02/12/2016 ([id number]) 79512 EST. PATIENT, LEVEL IV Diagnosis: Contusion of left lower leg, initial encounter[ICD10: S80.12XA] Diagnosis: Abrasion of scalp, initial encounter[ICD10: S00.01XA] Diagnosis: Laceration without foreign body of left upper arm, initial encounter[ ICD10: S41.112A] Diagnosis: Localized edema[ICD10: R60.0] Diagnosis: Hypothyroidism, unspecified[ICD10: E03.9] Diagnosis: Essential (primary) hypertension[ICD10: I10] Alexandria Barron MD, [facility] CPT-4: 21530 02/08/2016 ([id number]) 75143 EST. PATIENT, LEVEL IV Diagnosis: Cough[ICD10: R05] Diagnosis: Low back pain[ICD10: M54.5] Diagnosis: Allergic rhinitis due to pollen[ICD10: J30.1] Diagnosis: Acute upper respiratory infection, unspecified[ICD10: J06.9] Diagnosis: Acute bronchitis, unspecified[ICD10: J20.9] Sandra Barron MD, [facility] CPT-4: 54026 11/16/2015 ([id number]) 84189 EST. PATIENT, LEVEL IV Diagnosis: Hypothyroidism, unspecified[ICD10: E03.9] Diagnosis: Lymphedema, not elsewhere classified[ICD10: I89.0] Alexandria Barron MD, [facility] CPT-4: 94541 07/18/2015 63220 EST. PATIENT, LEVEL IV Diagnosis: Contusion of left lower leg, subsequent encounter[ICD10: S80.12XD] Diagnosis: Cellulitis of left lower limb[ICD10: L03.116] Светлана Barron MD, [facility] CPT-4: 26152 06/27/2015 91454 EST. PATIENT, LEVEL III Diagnosis: Contusion of left lower leg, initial encounter[ICD10: S80.12XA] Diagnosis: Cellulitis of left lower limb[ICD10: L03.116] Светлана Barron MD, [facility] CPT-4: 80529 06/19/2015 ([id number]) 00876 EST. 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 PATIENT, LEVEL III Diagnosis: Rosacea, acne[ICD9: 695.3] Diagnosis: Lymphedema[ICD9: 457.1] Sandra Barron MD, [facility] CPT-4: 60557 02/27/2015 ([id number]) 17189 EST. PATIENT, LEVEL III Diagnosis: Right leg swelling[ICD9: 729.81] Alexandria Barron MD, [facility] CPT-4: 79043 01/26/2015 ([id number]) 67254 EST. PATIENT, LEVEL III Diagnosis: CELLULITIS OF LEG[ICD9: 682.6] Mary Ann Bertrand [facility] CPT-4 : 77809 01/16/2015 ([id number]) OFFICE VISIT, NEW - LEVEL 4 Diagnosis: Back pain[ICD9: 724.5] Diagnosis: Lymphedema[ICD9: 457.1] Diagnosis: Sacroiliitis[ICD9: 720.2] Diagnosis: Chronic pain[ICD9: 338.29] Diagnosis: HYPOTHYROIDISM[ICD9: 244.9] Diagnosis: Dysphagia[ICD9: 787.20] Alexandria Barron MD, [facility] CPT-4: 68441 12/05/2014 Plan of Care Planned Activity Notes [...] with compression 07/23/2018 Appointment: Alexandria Barron WPtel: [address] [place], [place] [phone] (15 min) Moderate 07/23/2018 Patient Education: Patient [...] while seated. 07/07/2018 Appointment: Alexandria Barron WPtel: [address] [place], [place] [phone] (15 min) Moderate 07/07/2018 Patient Education: Patient [...] peripheral edema. 06/22/2018 Appointment: Alexandria Barron WPtel: [facility] (15 min) Moderate 06/22/2018 Patient Education: Patient Medication Summary Completed 06/22/2018 Appointment: Alexandria Barron WPtel: [facility] (15 min) Moderate 05/27/2018 Visit Plan: [...] of over-medication. 05/25/2018 Appointment: Alexandria Barron WPtel: [facility] (15 min) Moderate 05/25/2018 Patient Education: Patient Medication Summary Completed 05/25/2018 Patient Education: Back Pain Completed 05/25/2018 Appointment: [facility]ана [phone] [facility] (30 min) Complex 05/15/2018 Visit Plan: Hypertension [...] in clinic. 04/23/2018 Appointment: Alexandria Barron WPtel[facility] (15 min) Moderate 04/23/2018 Patient Education: [...] request. 04/01/2018 Appointment: [phone] [facility] (15 min) Moderate 04/01/2018 Patient Education: [...] goes well. 03/18/2018 Appointment: [phone] [facility] (15 min) Moderate 03/18/2018 Patient Education: [...] on buttock. 03/09/2018 Appointment: Alexandria Barron WPtel: [phone] [facility] (15 min) Moderate 03/09/2018 Patient Education: [...] her report. 02/12/2018 Appointment: Alexandria Barron WPtel: [facility] (15 min) Moderate 02/12/2018 Patient Education: Patient Medication Summary Completed 02/12/2018 Visit Plan: Bronchitis- Pt advised to increase fluids, vitamin C. Discussed natural and expected course of this diagnosis and need to alert me if symptoms do not follow expected course, or if any worse. RX sent to patient's pharmacy. 12/26/2017 Appointment: Sandra Mcdonald WPtel: [phone] [place] (15 min) Moderate 12/26/2017 Patient Education: [...] seated. 12/04/2017 Appointment: [phone] [facility] (30 min) Complex 12/04/2017 Patient Education: [...] Светлана Garcia WPtel: [facility] (30 min) Complex 11/13/2017 Patient Education: Patient [...] wound care. 11/06/2017 Appointment: Alexandria Barron WPtel: [facility] (30 min) Complex 11/06/2017 Patient Education: [...] peripheral edema. 10/29/2017 Appointment: Светлана Garcia WPtel: [facility] (15 min) Moderate 10/29/2017 Patient Education: Patient [...] pennsaid sample 09/04/2017 Appointment: Alexandria Barron WPtel: [facility] (15 min) Moderate 09/04/2017 Patient Education: Patient Medication Summary Completed 09/04/2017 Appointment: Светлана Garcia WPtel: [address] [place], [place] [phone] (15 min) Moderate 08/18/2017 Visit Plan: Skin lesion on face - lesion removed with scalpel and dressed with medihoney, pt to RTC in 10 days for treatment of the lesion if not fully resolved. 08/08/2017 Appointment: Alexandria Barron WPtel: [facility] (30 min) Complex 08/08/2017 Patient Education: [...] medication. 05/29/2017 Appointment: Alexandria Barron WPtel: [phone] [facility] (15 min) Moderate 05/29/2017 Patient Education: Patient Medication Summary Completed 05/29/2017 Appointment: Alexandria Barron WPtel: [phone] [facility] (15 min) Moderate 04/30/2017 Referral: Alberta Wilks [address] [place], [place] [id number] Patient informed. Referral [...] control. 04/16/2017 Appointment: [facility]el[phone] (15 min) Moderate 04/16/2017 Patient Education: Patient Medication Summary Completed 04/16/2017 Care Plan: Referral Order SNOMED-CT : [id number] Pending 04/16/2017 Visit Plan: Wound healed - no further treatment at this time. 02/24/2017 Appointment: Nurse Visit 02/24/2017 Patient Education: Patient Medication Summary Completed 02/24/2017 Appointment: Nurse Visit 02/18/2017 Appointment: Светлана Garcia WPtel: [facility] (30 min) Complex 02/14/2017 Visit Plan: Cellulitis - The patient was instructed in appropriate wound care. The patient was instructed to use the antibiotic as per RX. The patient is to call for any change in symptoms, increase in size of the lesion, increase in pain, worsening redness, warmth, discharge. 02/10/2017 Appointment: Светлана Garcia WPtel: [facility] (30 min) Complex 02/10/2017 Patient Education: Patient [...] Alexandria Barron WPtel: [facility] (15 min) Moderate 01/21/2017 Patient Education: Patient [...] not improving. 12/18/2016 Appointment: Alexandria Barron WPtel: [facility] (15 min) Moderate 12/18/2016 Patient Education: [...] to specialist 08/26/2016 Appointment: Alexandria Barron WPtel: [facility] (15 min) Moderate 08/26/2016 Patient Education: Patient Medication Summary Completed 08/26/2016 Care Plan: Referral Order SNOMED-CT : [id number] Pending 08/26/2016 Appointment: Sandra Mcdonald WPtel: [phone] [place] (30 min) Complex 03/11/2016 Visit Plan: Edema - improved-pt has been advised to elevate legs to prevent dependent edema, compression has been recommended to help to naturally decrease peripheral edema. Diuretic use has been discussed and pt has been instructed in appropriate use of such medication as necessary to further attempt to reduce peripheral edema. 02/27/2016 Appointment: Sandra Mcdonald WPtel: [phone] [place] (30 min) Complex 02/27/2016 Patient Education: Patient Medication Summary Completed 02/27/2016 Appointment: Nurse Visit 02/20/2016 Patient Education: Patient Medication Summary Completed 02/20/2016 Visit Plan: Abrasion of scalp-healing well-continue wound care as directed Laceration left arm-healing well-continue wound care-may leave open to air Contusion of left ctb-meyodhqic-xpcnwdnj to monitor Edema-elevate legs-follow up tomorrow for quick check of swelling 02/19/2016 Appointment: Sandra Mcdonald [facility]Ptel[facility] [phone] [phone] (15 min) Moderate 02/19/2016 Patient Education: Patient [...] edema. 02/08/2016 Appointment: Alexandria Bar[facility]el[phone] [facility] (15 min) Moderate 02/08/2016 Patient Education: [...] swelling. 07/18/2015 Appointment: Alexandria Bar[facility]el[phone] [facility] (15 min) Moderate 07/18/2015 Patient Education: [...] not improving. 04/03/2015 Appointment: Alexandria Barron [facility]Ptel[facility] [address] [facility] [place] (15 min) Moderate 04/03/2015 Patient Education: Patient Medication Summary Completed 04/03/2015 Visit Plan: Rosacea-continue finacea as directed-add metronidazole cream twice daily-call if symptoms do not improve or if any worse. Etjundiair-isvtoyb-kfuptgth with wraps-no change in treatment 02/27/2015 Appointment: [...] for EGD. 12/05/2014 Appointment: Alexandria Bar[facility]Ptel[phone] [facility] [place] ([place] New Patient 12/05/2014 Patient Education: Patient Medication Summary Completed 12/05/2014 Patient Education: Hypertension Completed 12/05/2014 Referral: Jose A Rios Referral Appointment Requested Referral: Alberta Wilks [address] [facility] [address] [id number] [place] Referral Appointment Requested Referral: Amarjit Veronica WPtel: [phone] [id number] Referral Appointment Requested Referral: Jayro Wetzel WPtel: [...] Dr. Wetzel for EGD. . Cellulitis - continue with oral antibiotics [...] as her home evaluation goes well. . Hypertension - well controlled - continue [...] and left finger stiffness - pennsaid sample Pneumovax - pneumonia shot - you had [...] do not improve or if any worse. Urvzrqhmos-rvsvxki-luyocbzq with wraps-no change in treatment . Hypertension [...] increase in pain, worsening redness, warmth, discharge. kenalog . Bronchitis- [...] to keep legs elevated when seated. . Abrasion of scalp-healing well-continue wound care as directed Laceration left arm-healing well-continue wound care-may leave open to air Contusion of left mpd-buxrxmsjy-klvyxhev to monitor Edema-elevate legs-follow up tomorrow for [...] increase in pain, worsening redness, warmth, discharge. Antibiotic prescription sent to your pharmacy Take [...] persist. Follow up appointment in 10 days. get labs one week before next appointment [...] wound care. . Dressing change-return tomorrow . Chronic pain - continue with the [...] on buttock - Calmoseptine on buttock. . Skin lesion on face - lesion removed with scalpel and dressed with maycol pt to RTC in 10 days for treatment of the lesion if not fully resolved.
--- OUTSIDE RECORDS SUMMARY | 2018-11-23 16:01 | XMS REPORT | CCD ---
Author Author [facility] Organization [facility] Address [address] [place] [address] Phone Care Team Providers Care Utilization Management Um Nurse Name Role Phone PP Unavailable CCM Unavailable Summary Purpose Interface Exchange Insurance Providers Payer name Policy type / Coverage type Covered constitution party ID Effective Begin Date Effective End Date WPS Medicare Part B Medicare Part B [id number] Unknown Unknown [facility] Medicare Part B [id number] Unknown Unknown Family history Brother Diagnosis Age At Onset Diabetes Unknown Skin cancer Unknown Father Diagnosis Age At Onset Heart disease Unknown Mother Diagnosis Age At Onset advanced age Unknown Hypothyroid Unknown Social History Social History Element Codes Description Effective Dates Marital status Unknown Single 12/05/2014 Number of children Unknown 0 12/05/2014 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[address]: 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 Quit 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 quit 20-25 [...] Start Date Stop Date Status Fill Instructions Lasix 40 mg tablet RxNorm: 168477 1 Tablet(s) PO daily as needed edema if more than 3 pounds weight gain in 48 hours 07/23/2018 11/19/2018 Active oxycodone 5 mg tablet RxNorm: 5020216 2 Tablet(s) PO BID 201708/14/2018 Active nadolol 20 mg tablet RxNorm: 082005 1/2 Tablet(s) PO daily No Stop Date Active oxycodone 5 mg tablet RxNorm: 6741150 2 Tablet(s) PO BID 201707/15/2018 Inactive nadolol 20 mg tablet RxNorm: 168480 1 Tablet(s) TAKE 1 TABLET BY MOUTH EVERY DAY 05/25/2018 06/21/2018 Inactive Generic For:*CORGARD 20 MG TABLET 05/21/2018 10:10: 43 AM spironolactone 50 mg tablet RxNorm: 964674 TAKE 1 TABLET BY MOUTH EVERY DAY 05/21/2018 06/03/2018 Inactive Generic For:ALDACTONE 50MG 05/21/2018 10:10:31 AM Ocuvite tablet RxNorm : 1 Tablet(s) PO BID 05/21/2018 06/03/2018 Inactive pramipexole 0.25 mg tablet RxNorm: 715701 TAKE 1 TABLET BY MOUTH TWICE DAILY 05/21/2018 06/03/2018 Inactive Generic For:MIRAPEX 0.25MG TAB 05/21/2018 10:10:48 AM levothyroxine 88 mcg tablet RxNorm: 879174 TAKE 1 TABLET BY MOUTH EVERY DAY WITH A 100MCG TABLET 05/21/2018 06/03/2018 Inactive Generic For:*SYNTHROID 0.088MG TAB 05/21/2018 10:10:11 AM levothyroxine 100 mcg tablet RxNorm: 972787 TAKE 1 TABLET BY MOUTH EVERY DAY , TAKE WITH AN 88 MCG TABLET 05/21/2018 Inactive Generic For:*SYNTHROID 100 MCG TABLET 05/21/2018 10:10:04 AM Vitamin D3 2,000 unit capsule RxNorm: 389356 1 Capsule(s) PO daily 05/21/2018 No Stop Date Active nadolol 20 mg tablet RxNorm: 777749 TAKE 1/2 TABLET BY MOUTH EVERY DAY 05/21/2018 05/24/2018 Inactive Generic For:*CORGARD 20 MG TABLET 05/21/2018 10:10:43 AM oxycodone 5 mg tablet RxNorm: 7885771 1 Tablet(s) PO QID as needed 05/15/2018 06/13/2018 Inactive pramipexole 0.25 mg tablet RxNorm: 629746 1 Tablet(s) PO BID 05/20/2018 Inactive Requip 0.25 mg tablet RxNorm: 076767 1 Tablet(s) PO BID 201705/03/2018 Inactive potassium chloride ER 10 mEq tablet,extended release RxNorm: 750185 1 Tablet(s) PO daily as needed when taking lasix 04/23/2018 08/20/2018 Active Lasix 40 mg tablet RxNorm: 211807 1 Tablet(s) PO daily as needed edema if more than 3 pounds weight loss in 48 hours 04/23/2018 07/22/2018 Inactive potassium chloride ER 10 mEq tablet,extended release RxNorm: 805989 1 Tablet(s) PO daily as needed when taking lasix 04/01/2018 04/22/2018 Inactive Lasix 40 mg tablet RxNorm: 480258 1 Tablet(s) PO daily as needed edema 04/01/2018 04/22/2018 Inactive oxycodone 5 mg tablet RxNorm: 4088008 1 Tablet(s) PO QID as needed 03/18/2018 04/16/2018 Inactive levothyroxine 88 mcg tablet RxNorm: 200278 1 Tablet(s) PO daily . Take with 100 mcg tablet. 02/19/2018 05/20/2018 Inactive spironolactone 50 mg tablet RxNorm: 306587 Tablet(s) TAKE 1 TABLET BY MOUTH DAILY 02/19/2018 05/20/2018 Inactive levothyroxine 100 mcg tablet RxNorm: 622838 1 Tablet(s) PO daily . Take with 88 mcg tablet 02/19/2018 02/18/2018 Inactive levothyroxine 88 mcg tablet RxNorm: 960106 1 Tablet(s) PO daily . Take with 100 mcg tablet. 02/19/2018 02/18/2018 Inactive levothyroxine 100 mcg tablet RxNorm: 331318 1 Tablet(s) PO daily . Take with 88 mcg tablet 02/19/2018 05/20/2018 Inactive spironolactone 25 mg tablet RxNorm: 261696 1 Tablet(s) PO daily 02/12/2018 02/18/2018 Inactive pt will let you know when she is ready for the refill oxycodone 10 mg tablet RxNorm: 1293824 1 Tablet(s) PO TID as needed 02/12/2018 03/13/2018 Inactive oxycodone 10 mg tablet RxNorm: 2232979 1 Tablet(s) PO Q6 as needed 01/22/2018 02/11/2018 Inactive spironolactone 50 mg tablet RxNorm: 896055 TAKE 1 TABLET BY MOUTH DAILY 01/05/2018 02/11/2018 Inactive Generic For:ALDACTONE 50MG 01/05/2018 8:27:46 AM Kenalog 40 mg/mL suspension for injection RxNorm: 4227958 1 Milliliter(s) Inj 12/26/2017 12/26/2017 Inactive Zithromax Z-Fransisco 250 mg tablet RxNorm: 691254 1 Tablet(s) PO UD 12/26/2017 12/30/2017 Inactive oxycodone 10 mg tablet RxNorm: 5080122 1 Tablet(s) PO Q6 as needed 11/25/2017 12/24/2017 Inactive nystatin 100,000 unit/gram topical powder RxNorm: 832907 1 Application TOP BID 11/13/2017 No Stop Date Active nystatin 100,000 unit/gram topical cream RxNorm: 592574 Gram(s) TOP QID 11/12/2017 11/18/2017 Inactive nystatin 100,000 unit/gram topical cream RxNorm: 239670 Gram(s) TOP QID 11/12/2017 11/11/2017 Inactive Lasix 20 mg tablet RxNorm: 622602 1 Tablet(s) PO daily as needed edema 11/03/2017 11/07/2017 Inactive potassium chloride ER 10 mEq tablet,extended release RxNorm: 450616 1 Tablet(s) PO daily while on the lasix 11/03/201701/2018 Inactive Keflex 500 mg capsule RxNorm: 637485 1 Capsule(s) PO TID 201711/07/2017 Inactive potassium chloride ER 10 mEq tablet,extended release RxNorm: 812104 1 Tablet(s) PO daily while on the lasix 10/29/2017 Inactive Lasix 20 mg tablet RxNorm: 899090 1 Tablet(s) PO daily as needed edema 10/29/2017 10/31/2017 Inactive oxycodone 10 mg tablet RxNorm: 6544675 1 Tablet(s) PO Q6 as needed 09/29/2017 10/28/2017 Inactive levothyroxine 200 mcg tablet RxNorm: 787600 TAKE 1 TABLET BY MOUTH DAILY 09/01/2017 02/18/2018 Inactive Generic For:*SYNTHROID 0.2MG TAB 09/01/2017 8:36:32 AM Bactrim DS 800 mg-160 mg tablet RxNorm: 731158 1 Tablet(s) PO BID 08/07/2017 08/16/2017 Inactive Bactrim DS 800 mg-160 mg tablet RxNorm: 657207 1 Tablet(s) PO BID 08/07/2017 08/06/2017 Inactive oxycodone 10 mg tablet RxNorm: 8553965 1 Tablet(s) PO Q6 as needed 07/31/2017 08/29/2017 Inactive spironolactone 50 mg tablet RxNorm: 876240 1 Tablet(s) PO daily 06/30/2017 12/26/2017 Inactive Not due for a refill until next month nadolol 20 mg tablet RxNorm: 336878 1 Tablet(s) PO daily 201611/28/2017 Inactive nadolol 20 mg tablet RxNorm: 197196 1/2 Tablet(s) PO daily 11/28/2017 Inactive nadolol 20 mg tablet RxNorm: 688937 1/2 Tablet(s) PO daily 05/21/2017 Inactive oxycodone 10 mg tablet RxNorm: 6338802 1 Tablet(s) PO Q6 as needed 04/01/2017 04/30/2017 Inactive levothyroxine 200 mcg tablet RxNorm: 241813 TAKE 1 TABLET BY MOUTH DAILY 03/10/2017 08/31/2017 Inactive Generic For:*SYNTHROID 0.2MG TAB 03/10/2017 8:49:05 AM potassium chloride ER 10 mEq tablet,extended release RxNorm: 107237 1 Tablet(s) PO daily while on the lasix 02/18/2017 Inactive Lasix 20 mg tablet RxNorm: 1 Tablet(s) PO daily as needed edema 02/18/2017 02/20/2017 Inactive Keflex 500 mg capsule RxNorm: 922980 1 Capsule(s) PO TID 201602/16/2017 Inactive Lasix 20 mg tablet RxNorm: 1 Tablet(s) PO daily 201602/15/2017 Inactive potassium chloride ER 10 mEq tablet,extended release RxNorm: 561884 1 Tablet(s) PO daily while on the lasix 02/14/2017 Inactive Lasix 20 mg tablet RxNorm: 1 Tablet(s) PO daily 201602/13/2017 Inactive potassium chloride ER 10 mEq tablet,extended release RxNorm: 297339 1 Tablet(s) PO daily while on the lasix 02/14/2017 Inactive oxycodone 10 mg tablet RxNorm: 2960640 1 Tablet(s) PO Q6 as needed 02/05/2017 03/06/2017 Inactive minocycline 50 mg tablet RxNorm: 369981 1 Tablet(s) PO Q72H 12/03/2017 Inactive spironolactone 50 mg tablet RxNorm: 197166 1 Tablet(s) PO daily 12/18/2016 06/15/2017 Inactive Not due for a refill until next month oxycodone 10 mg tablet RxNorm: 6147195 1 Tablet(s) PO Q6 as needed 12/05/2016 01/03/2017 Inactive nadolol 20 mg tablet RxNorm: 282712 1 Tablet(s) PO daily 201604/15/2017 Inactive oxycodone 10 mg tablet RxNorm: 7056352 1 Tablet(s) PO Q6 as needed 09/30/2016 10/29/2016 Inactive levothyroxine 200 mcg tablet RxNorm: 500889 TAKE 1 TABLET BY MOUTH DAILY 09/12/2016 03/09/2017 Inactive Generic For:*SYNTHROID 0.2MG TAB 09/12/2016 8:41:27 AM oxycodone 10 mg tablet RxNorm: 1638653 1 Tablet(s) PO Q6 as needed 08/06/2016 09/04/2016 Inactive oxycodone 10 mg tablet RxNorm: 8956920 1 Tablet(s) PO Q6 as needed 06/10/2016 07/09/2016 Inactive oxycodone 10 mg tablet RxNorm: 8390824 1 Tablet(s) PO Q6 as needed 04/05/2016 05/04/2016 Inactive levothyroxine 200 mcg tablet RxNorm: 868338 1 Tablet(s) PO daily 03/14/2016 09/09/2016 Inactive oxycodone 10 mg tablet RxNorm: 9128238 1 Tablet(s) PO Q6 as needed 02/08/2016 03/08/2016 Inactive Kenalog 40 mg/mL suspension for injection RxNorm: 5525790 Milliliter(s) Inj 11/16/2015 11/16/2015 Inactive Zithromax Z-Fransisco 250 mg tablet RxNorm: 131596 1 Tablet(s) PO UD 11/16/2015 11/20/2015 Inactive zpack, take probiotic while on abx oxycodone 10 mg tablet RxNorm: 8121126 1 Tablet(s) PO Q6 as needed 11/16/2015 02/07/2016 Inactive ceftriaxone 500 mg solution for injection RxNorm: 2213911 Inj 11/16/2015 11/16/2015 Inactive oxycodone 10 mg tablet RxNorm: 4994113 1 Tablet(s) PO Q6 as needed 10/11/2015 11/15/2015 Inactive levothyroxine 200 mcg tablet RxNorm: 022476 1 Tablet(s) PO daily 09/14/2015 03/11/2016 Inactive oxycodone 10 mg tablet RxNorm: 5060076 1 Tablet(s) PO Q6 as needed 08/10/2015 10/10/2015 Inactive Keflex 500 mg capsule RxNorm: 695412 1 Capsule(s) PO TID 201407/03/2015 Inactive Keflex 500 mg capsule RxNorm: 969114 1 Capsule(s) PO TID 201406/25/2015 Inactive oxycodone 10 mg tablet RxNorm: 9444918 1 Tablet(s) PO Q6 as needed 04/03/2015 08/09/2015 Inactive oxycodone 10 mg tablet RxNorm: 8835860 1 Tablet(s) PO Q6 as needed 02/14/2015 04/02/2015 Inactive Keflex 500 mg capsule RxNorm: 668851 1 Capsule(s) PO TID 201401/22/2015 Inactive Culturelle 10 billion cell capsule RxNorm: 049086 1 Capsule(s) PO daily 01/16/2015 02/14/2015 Inactive Dulcolax Stool Softener (docusate) 100 mg capsule RxNorm: 0493225 1 Capsule(s) PO daily 12/05/2014 02/11/2018 Inactive [SAVINGS FOR NON-COVERED DRUGS -- BIN:[id number], PCN: [id number], Group: [id number], ID# [id number], Questions: . THIS IS NOT INSURANCE.] Restasis 0.05 % eye drops in a dropperette RxNorm: 530805 1 Drop(s) OPH BID No Start Date Active Vitamin D3 2,000 unit capsule RxNorm: 016793 1 Capsule(s) PO daily No Start Date 05/20/2018 Inactive minocycline 50 mg tablet RxNorm: 239065 1 Tablet(s) PO QHS No Start Date 01/20/2017 Inactive nadolol 20 mg tablet RxNorm: 094417 1 Tablet(s) PO daily No Start Date 11/05/2016 Inactive nadolol 20 mg tablet RxNorm: 457510 1 Tablet(s) PO daily No Start Date 11/05/2016 Inactive Ocuvite tablet RxNorm : 1 Tablet(s) PO BID No Start Date 05/20/2018 Inactive oxycodone 10 mg tablet RxNorm: 3869214 1 Tablet(s) PO Q6 as needed No Start Date 02/13/2015 Inactive Dulcolax Stool Softener (docusate) 100 mg capsule RxNorm: 8632417 1 Capsule(s) PO BID No Start Date 12/04/2014 Inactive Multivitamin 50 Plus tablet RxNorm: 1 Tablet(s) PO QAM No Start Date 02/11/2018 Inactive Finacea 15 % topical gel RxNorm: 2758129 TOP No Start Date 05/24/2018 Inactive Synthroid 200mcg Oral RxNorm: oral No Start Date 09/13/2015 Inactive spironolactone 50 mg tablet RxNorm: 548840 1 Tablet(s) PO daily No Start Date 12/17/2016 Inactive spironolactone 50 mg tablet RxNorm: 787201 1 Tablet(s) PO daily No Start Date 02/11/2018 Inactive Medication Administered Medication Codes Instructions Start Date Status Kenalog 40 mg/mL suspension for injection RxNorm: 2836044 1Milliliter 12/26/2017 No longer Active ceftriaxone 500 mg solution for injection RxNorm: 3952635 11/16/2015 No longer Active Kenalog 40 mg/mL suspension for injection RxNorm: 0028329 Milliliter 11/16/2015 No longer Active Immunizations Vaccine [...] Item Item Code Result Date Free T4 Ppc147 FREE T4 1.92 ng/dL 04/24/2018 Tsh Ord6 [...] 31.1 pg 04/24/2018 Cbc With Differential Ord2 [place]% 13.0 % 04/24/2018 Cbc With Differential Ord2 [...] 1.00 K/ul 04/24/2018 Cbc With Differential Ord2 [place] ABS# 0.4 K/ul 04/24/2018 Cbc With Differential Ord2 Eos ABS# 0.0 K/ul 04/24/2018 Cbc With Differential Ord2 Baso ABS# 0.0 K/ul 04/24/2018 Comp Metabolic Iul213 NA 138 mEq/L 04/24/2018 Comp Metabolic Nfo035 K 3.9 mEq/L 04/24/2018 Comp Metabolic Cib087 CL 97 mEq/L 04/24/2018 Comp Metabolic Oeq533 CO2 32.0 mEq/L 04/24/2018 Comp Metabolic Ujg223 ANION GAP 13 04/24/2018 Comp Metabolic Rvf522 GLUCOSE 194 mg/dL 04/24/2018 Comp Metabolic Ggi703 Creat 0.8 mg/dL 04/24/2018 Comp Metabolic Mak297 eGFR 70 ml/min/1.73m2 04/24/2018 Comp Metabolic Fzr391 BUN 20 mg/dL 04/24/2018 Comp Metabolic Qet866 B/C Ratio 24.1 Ratio 04/24/2018 Comp Metabolic Tez555 CALCIUM 9.4 mg/dL 04/24/2018 Comp Metabolic Ejc044 ALK PHOS 110 U/L 04/24/2018 Comp Metabolic Jys047 AST(SGOT) 33 U/L 04/24/2018 Comp Metabolic Drw171 ALT(SGPT) 16 U/L 04/24/2018 Comp Metabolic Srs277 BILI T 1.8 mg/dL 04/24/2018 Comp Metabolic Hvt432 ALBUMIN 4.0 g/dL 04/24/2018 Comp Metabolic Knd202 TPRO 5.7 g/dL 04/24/2018 Comp Metabolic Nac145 GLOB 1.7 g/dL 04/24/2018 Comp Metabolic Yni231 A/G Ratio 2.3 Ratio 04/24/2018 Comp Metabolic Kdw748 Osmo 284 mOsmo 04/24/2018 Tsh Ord6 TSH (3rd IS) 0.07 uIU/mL 02/13/2018 Free T4 Eog218 FREE T4 1.85 ng/dL 02/13/2018 %Hba1C Mix543 % HbA1c 49709-9 5.9 % 01/21/2017 %Hba1C Qox981 Gluc Ave 123 mg/dL 01/21/2017 Comp Metabolic Lpv310 NA 136 mEq/L 01/21/2017 Comp Metabolic Fvm612 K 4.3 mEq/L 01/21/2017 Comp Metabolic Hgh479 CL 99 mEq/L 01/21/2017 Comp Metabolic Pjn495 CO2 30.0 mEq/L 01/21/2017 Comp Metabolic Grw021 ANION GAP 11 01/21/2017 Comp Metabolic Ixy773 GLUCOSE 234 mg/dL 01/21/2017 Comp Metabolic Xbt908 Creat 0.5 mg/dL 01/21/2017 Comp Metabolic Olb061 eGFR 115 ml/min/1.73m2 01/21/2017 Comp Metabolic Lpu925 BUN 10 mg/dL 01/21/2017 Comp Metabolic Llg827 B/C Ratio 18.5 Ratio 01/21/2017 Comp Metabolic Ome854 CALCIUM 8.8 mg/dL 01/21/2017 Comp Metabolic Bsj536 ALK PHOS 74 U/L 01/21/2017 Comp Metabolic Mup341 AST(SGOT) 28 U/L 01/21/2017 Comp Metabolic Tkf620 ALT(SGPT) 15 U/L 01/21/2017 Comp Metabolic Pjf723 BILI T 1.1 mg/dL 01/21/2017 Comp Metabolic Gpd603 ALBUMIN 3.8 g/dL 01/21/2017 Comp Metabolic Ksa423 TPRO 5.8 g/dL 01/21/2017 Comp Metabolic Gic848 GLOB 2.0 g/dL 01/21/2017 Comp Metabolic Nbi168 A/G Ratio 1.9 Ratio 01/21/2017 Comp Metabolic Ajv468 Osmo 279 mOsmo 01/21/2017 Tsh Ord6 hTSH II 0.80 uIU/mL 04/03/2015 Bili D Ord93 BILI D 0.1 mg/dL 04/03/2015 Bili D Ord93 BILI I 0.9 mg/dL 04/03/2015 Free T4 Wsz434 FREE T4 1.27 ng/dL 04/03/2015 Cbc With [...] Ord2 RDW 15.6 % 04/03/2015 Comp Metabolic Aon494 NA 136 mEq/L 04/03/2015 Comp Metabolic Mmv798 K 4.3 mEq/L 04/03/2015 Comp Metabolic Btd081 CL 99 mEq/L 04/03/2015 Comp Metabolic Sch282 CO2 29.0 mEq/L 04/03/2015 Comp Metabolic Kvv570 ANION GAP 12 04/03/2015 Comp Metabolic Drm234 GLUCOSE 120 mg/dL 04/03/2015 Comp Metabolic Wws037 Creat 0.5 mg/dL 04/03/2015 Comp Metabolic Chj564 eGFR 118 ml/min/1.73m2 04/03/2015 Comp Metabolic Zjg833 BUN 11 mg/dL 04/03/2015 Comp Metabolic Ssq105 B/C Ratio 20.8 Ratio 04/03/2015 Comp Metabolic Mpx148 CALCIUM 9.3 mg/dL 04/03/2015 Comp Metabolic Zko393 ALK PHOS 61 U/L 04/03/2015 Comp Metabolic Bjl073 AST(SGOT) 28 U/L 04/03/2015 Comp Metabolic Qmg793 ALT(SGPT) 16 U/L 04/03/2015 Comp Metabolic Jlb375 BILI T 1.0 mg/dL 04/03/2015 Comp Metabolic Fws915 ALBUMIN 4.1 g/dL 04/03/2015 Comp Metabolic Wwr801 TPRO 6.1 g/dL 04/03/2015 Comp Metabolic Kth735 GLOB 2.0 g/dL 04/03/2015 Comp Metabolic Ppj286 A/G Ratio 2.1 Ratio 04/03/2015 Comp Metabolic Icj784 Osmo 273 mOsmo 04/03/2015 Review of Systems [...] None Full Exam - General 1995 Respiratory auscultation Overall: breath sounds clear bilaterally 09/04/2017 None Full Exam - General 1994 Respiratory respiratory effort/rhythm Overall: no retractions 09/04/2017 None Full Exam - General 1995 Respiratory respiratory effort/rhythm Overall: normal rate 09/04/2017 [...] developed 08/08/2017 None Full Exam - General 1995 Constitutional general appearance Development: appears stated age 0108/08/2017 None Full Exam - General 1995 Constitutional [...] FLU VACC PRSV FREE INC ANTIG CPT-4: 57370 04/23/2018 TRIAMCINOLONE ACET INJ NOS CPT-4: J3301 12/26/2017 ADMIN INFLUENZA VIRUS VAC CPT-4: G0008 04/16/2017 FLU VACC PRSV FREE INC ANTIG CPT-4: 76984 04/16/2017 TRIAMCINOLONE ACET INJ NOS CPT-4: J3301 [...] Code : 8480-6 BMI: 23.6 Code : 31223-6 Heart Rate 1 : 59 bpm Height: 5'1" Respiratory Rate: 18 bpm SpO2: 99% Temperature: 37.0 (C) / 98.6 (F ) Weight: 125 lbs 04/23/2018 Blood Pressure 2: 118/62 Code : 8480-6 BMI: 22.3 Code : 75397-7 Heart Rate 1 : 73 bpm Height: 5'1" SpO2: 97% Weight: 118 lbs 04/01/2018 Blood Pressure 1: 136/72 Code : 8480-6 BMI: 26.6 Code : 84548-1 Heart Rate 1 : 75 bpm Height: 5'1" SpO2: 98% Weight: 141 lbs 03/18/2018 Blood Pressure 1: 132/62 Code : 8480-6 Heart Rate 1: 61 bpm Height: 5'1" SpO2: 96% Weight: 03/09/2018 Blood Pressure 1: 122/60 Code : 8480-6 Heart Rate 1: 65 bpm Height: 5'1" SpO2: 98% Weight: 02/12/2018 Blood Pressure 1: 100/68 Code : 8480-6 BMI: 24.3 Code : 68958-6 Heart Rate 1 : 68 bpm Height: 5'1" SpO2: 96% Weight: 128 lbs 13 oz 12/26/2017 Blood Pressure 1: 126/68 Code : 8480-6 BMI: 26.7 Code : 11668-1 Heart Rate 1 : 66 bpm Height: 5'1" SpO2: 98% Temperature: 36.8 (C) / 98.2 (F) Weight: 141 lbs 8 oz 12/04/2017 Blood Pressure 1: 132/76 Code : 8480-6 BMI: 26.5 Code : 07996-9 Heart Rate 1 : 73 bpm Height: 5'1" SpO2: 96% Weight: 140 lbs 11/13/2017 Blood Pressure 1: 126/62 Code : 8480-6 Heart Rate 1: 69 bpm Height: 5'1" SpO2: 96% Weight: 11/06/2017 Blood Pressure 1: 142/84 Code : 8480-6 BMI: 25.7 Code : 39296-0 Heart Rate 1 : 78 bpm Height: 5'1" SpO2: 95% Temperature: 36.9 (C) / 98.5 (F) Weight: 136 lbs 10/29/2017 Blood Pressure 1: 132/68 Code : 8480-6 BMI: 26.8 Code : 17630-5 Heart Rate 1 : 70 bpm Height: 5'1" SpO2: 98% Weight: 142 lbs 09/04/2017 Blood Pressure 1: 132/74 Code : 8480-6 BMI: 25.9 Code : 55898-8 Heart Rate 1 : 68 bpm Height: 5'1" SpO2: 96% Weight: 137 lbs 08/08/2017 Blood Pressure 1: 118/72 Code : 8480-6 BMI: 26.6 Code : 19633-3 Heart Rate 1 : 68 bpm Height: 5'1" SpO2: 95% Weight: 141 lbs 05/29/2017 Blood Pressure 1: 142/78 Code : 8480-6 BMI: 26.3 Code : 34226-0 Heart Rate 1 : 65 bpm Height: 5'1" SpO2: 95% Weight: 139 lbs 04/16/2017 Blood Pressure 1: 136/62 Code : 8480-6 BMI: 27.4 Code : 35369-6 Heart Rate 1 : 38 bpm Height: 5'1" SpO2: 98% Weight: 145 lbs 02/10/2017 Blood Pressure 1: 124/70 Code : 8480-6 BMI: 27.4 Code : 90825-0 Heart Rate 1 : 70 bpm Height: 5'1" SpO2: 96% Weight: 145 lbs 01/21/2017 Blood Pressure 1: 120/70 Code : 8480-6 BMI: 27.2 Code : 36117-9 Heart Rate 1 : 65 bpm Height: 5'1" SpO2: 95% Weight: 144 lbs 12/18/2016 Blood Pressure 1: 122/74 Code : 8480-6 BMI: 27.4 Code : 12858-7 Heart Rate 1 : 66 bpm Height: 5'1" SpO2: 97% Weight: 145 lbs 08/26/2016 Blood Pressure 1: 110/64 Code : 8480-6 BMI: 28.0 Code : 90246-6 Heart Rate 1 : 67 bpm Height: 5'1" SpO2: 97% Weight: 148 lbs 02/27/2016 Blood Pressure 1: 126/74 Code : 8480-6 Heart Rate 1: 67 bpm Height: 5'1" SpO2: 97% 02/19/2016 Blood Pressure 1: 130/80 Code : 8480-6 BMI: 28.2 Code : 79356-6 Heart Rate 1 : 74 bpm Height: 5'1" SpO2: 96% Weight: 149 lbs 02/08/2016 Blood Pressure 1: 122/78 Code : 8480-6 BMI: 28.2 Code : 52184-1 Heart Rate 1 : 63 bpm Height: 5'1" SpO2: 96% Weight: 149 lbs 11/16/2015 Blood Pressure 1: 128/70 Code : 8480-6 BMI: 27.8 Code : 13538-6 Heart Rate 1 : 64 bpm Height: 5'1" SpO2: 97% Weight: 147 lbs 07/18/2015 Blood Pressure 1: 110/60 Code : 8480-6 BMI: 28.5 Code : 58303-1 Heart Rate 1 : 61 bpm Height: 5'1" SpO2: 97% Weight: 151 lbs 06/27/2015 Blood Pressure 1: 122/60 Code : 8480-6 BMI: 28.9 Code : 98972-1 Heart Rate 1 : 63 bpm Height: 5'1" SpO2: 95% Weight: 153 lbs 06/19/2015 Blood Pressure 1: 120/78 Code : 8480-6 Heart Rate 1: 68 bpm SpO2: 96% Weight: 154 lbs 04/03/2015 Blood Pressure 1: 128/68 Code : 8480-6 BMI: 29.1 Code : 91790-8 Heart Rate 1 : 70 bpm Height: 5'1" SpO2: 97% Weight: 154 lbs 02/27/2015 Blood Pressure 1: 122/84 Code : 8480-6 BMI: 29.5 Code : 84884-9 Heart Rate 1 : 67 bpm Height: 5'1" SpO2: 95% Weight: 156 lbs 01/26/2015 Blood Pressure 1: 132/70 Code : 8480-6 BMI: 30.2 Code : 24456-7 Heart Rate 1 : 76 bpm Height: 5'1" Weight: 160 lbs 01/16/2015 Blood Pressure 1: 140/70 Code : 8480-6 BMI: 30.0 Code : 60339-3 Heart Rate 1 : 78 bpm Height: 5'1" Respiratory Rate: 20 bpm Weight: 159 lbs 12/05/2014 Blood Pressure 1: 138/78 Code : 8480-6 BMI: 30.8 Code : 60444-7 Heart Rate 1 : 76 bpm Height: [...] ill contacts 07/23/2018 she is in a prison [facility] recumbent position 07/23/2018 None Pertinent Findings [...] ill contacts 07/07/2018 she is in a prison [employer] recumbent position 07/07/2018 None Hospital Follow [...] data Encounters Encounter Performer Location Codes Date ([id number]) [id number] EST. PATIENT, LEVEL IV Diagnosis: Essential (primary) hypertension[ICD10: I10] Diagnosis: Lymphedema, not elsewhere classified[ICD10: I89.0] Diagnosis: Other ascites[ICD10: R18.8] Alexandria Barron MD, [facility] CPT- 4: 34870 07/23/2018 ([id number]) [id number] EST. PATIENT, LEVEL IV Diagnosis: Essential (primary) hypertension[ICD10: I10] Diagnosis: Atrophy of thyroid (acquired)[ICD10: E03.4] Diagnosis: Lymphedema, not elsewhere classified[ICD10: I89.0] Alexandria Barron MD, [facility] CPT-4: 19605 07/07/2018 ([id number]) 96705 EST. PATIENT, LEVEL IV Diagnosis: Essential (primary) hypertension[ICD10: I10] Diagnosis: Localized edema[ICD10: R60.0] Alexandria Barron MD, [facility] CPT- 4: 47360 06/22/2018 ([id number]) 11176 EST. PATIENT, LEVEL IV Diagnosis: Atrophy of thyroid (acquired)[ICD10: E03.4] Diagnosis: Essential (primary) hypertension[ICD10: I10] Diagnosis: Other chronic pain[ICD10: G89.29] Diagnosis: Pain in left knee[ICD10: M25.562] Diagnosis: Low back pain[ICD10: M54.5] Alexandria Barron MD, [facility] CPT- 4: 39144 05/25/2018 ([id number]) 22847 EST. 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 PATIENT, LEVEL IV Diagnosis: Essential (primary) hypertension[ICD10: I10] Diagnosis: Low back pain[ICD10: M54.5] Diagnosis: Localized edema[ICD10: R60.0] Diagnosis: Other chronic pain[ICD10: G89.29] Diagnosis: Obstructive sleep apnea (adult) (pediatric)[ICD10: G47.33] Alexandria Barron MD , [facility] CPT-4: 69714 04/01/2018 ([id number]) 77085 EST. PATIENT, LEVEL IV Diagnosis: Essential (primary) hypertension[ICD10: I10] Diagnosis: Other chronic pain[ICD10: G89.29] Diagnosis: Unsteadiness on feet[ICD10: R26.81] Alexanrdia Barron MD, [facility] CPT-4: 14964 03/18/2018 ([id number]) [id number] EST. PATIENT, LEVEL IV Diagnosis: Low back pain[ICD10: M54.5] Diagnosis: Localized edema[ICD10: R60.0] Diagnosis: Essential (primary) hypertension[ICD10: I10] Diagnosis: Other chronic pain[ICD10: G89.29] Diagnosis: Pressure ulcer of left buttock, stage 1[ICD10: L89.321] Diagnosis: Obstructive sleep apnea (adult) (pediatric)[ICD10: G47.33] Alexandria Barron MD , [facility] CPT-4: 71203 03/09/2018 ([id number]) [id number] EST. PATIENT, LEVEL IV Diagnosis: Atrophy of thyroid (acquired)[ICD10: E03.4] Diagnosis: Essential (primary) hypertension[ICD10: I10] Diagnosis: Localized edema[ICD10: R60.0] Diagnosis: Other chronic pain[ICD10: G89.29] Alexandria Barron MD, [facility] CPT-4: 40405 02/12/2018 ([id number]) [id number] EST. PATIENT, LEVEL III Diagnosis: Cough[ICD10: R05] Diagnosis: Acute bronchitis, unspecified[ICD10: J20.9] Sandra Barron MD, [facility] CPT-4: 29529 12/26/2017 ([id number]) 52322 EST. PATIENT, LEVEL IV Diagnosis: Essential (primary) hypertension[ICD10: I10] Diagnosis: Other specified noninfective disorders of lymphatic vessels and lymph nodes[ICD10: I89.8] Diagnosis: Atrophy of thyroid (acquired)[ICD10: E03.4] Alexandria Barron MD, [facility] CPT-4: 14177 12/04/2017 [id number] EST. PATIENT, LEVEL III Diagnosis: Candidiasis of skin and nail[ICD10: B37.2] [facility] CPT-4: 28273 11/13/2017 ([id number]) 39692 EST. PATIENT, LEVEL III Diagnosis: Lymphedema, not elsewhere classified[ICD10: I89.0] Diagnosis: Low back pain[ICD10: M54.5] Diagnosis: Localized edema[ICD10: R60.0] Alexandria Barron MD, [facility] CPT- 4: 31179 11/06/2017 ([id number]) Miscellaneous no charge Diagnosis: Localized edema[ICD10: R60.0] Diagnosis: Cellulitis of right lower limb[ICD10: L03.115] Diagnosis: Cellulitis of left lower limb[ICD10: L03.116] Светлана Barron MD, [facility] CPT-4: 26072 11/03/2017 [id number] EST. PATIENT, LEVEL III Diagnosis: Cellulitis of left lower limb[ICD10: L03.116] Diagnosis: Localized edema[ICD10: R60.0] Светлана Barron MD, [facility] CPT-4 : 53468 10/29/2017 ([id number]) 39952 EST. PATIENT, LEVEL IV Diagnosis: Essential (primary) hypertension[ICD10: I10] Diagnosis: Atrophy of thyroid (acquired)[ICD10: E03.4] Diagnosis: Pain in left knee[ICD10: M25.562] Diagnosis: Stiffness of left hand, not elsewhere classified[ICD10: M25.642] Diagnosis: Stiffness of right hand, not elsewhere classified[ICD10: M25.641] Alexandria Barron MD, [facility] CPT-4: 51389 09/04/2017 ([id number]) 15843 EST. PATIENT, LEVEL III Diagnosis: Other viral warts[ICD10: B07.8] Diagnosis: Other skin changes[ICD10: R23.8] Alexandria Barron MD, [facility] CPT-4: 72098 08/08/2017 ([id number]) 66226 EST. 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 PATIENT, LEVEL III Diagnosis: Cellulitis of left lower limb[ICD10: L03.116] Diagnosis: Cellulitis of right lower limb[ICD10: L03.115] Светлана Barron MD, [facility] CPT-4: 12349 02/10/2017 ([id number]) 22490 EST. PATIENT, LEVEL IV Diagnosis: Essential (primary) hypertension[ICD10: I10] Diagnosis: Other abnormal glucose[ICD10: R73.09] Diagnosis: Localized edema[ICD10: R60.0] Alexandria Barron MD, [facility] CPT- 4: 11763 01/21/2017 [id number] EST. 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 PATIENT, LEVEL IV Diagnosis: Essential (primary) hypertension[ICD10: I10] Diagnosis: Pain in left knee[ICD10: M25.562] Diagnosis: Other instability, left knee[ICD10: M25.362] Diagnosis: Other chronic pain[ICD10: G89.29] Alexandria Barron MD, [facility] CPT-4: 83064 08/26/2016 ([id number]) 47052 EST. PATIENT, LEVEL III Diagnosis: Localized edema[ICD10: R60.0] Sandra Barron MD, [facility] CPT-4: 25845 02/27/2016 ([id number]) Miscellaneous no charge Diagnosis: Lymphedema, not elsewhere classified[ICD10: I89.0] Sandra Barron MD, [facility] CPT-4: 25798 02/20/2016 ([id number]) 11129 EST. PATIENT, LEVEL III Diagnosis: Contusion of left lower leg, subsequent encounter[ICD10: S80.12XD] Diagnosis: Abrasion of scalp, subsequent encounter[ICD10: S00.01XD] Diagnosis: Laceration without foreign body of left upper arm, subsequent encounter[ICD10: S41.112D] Diagnosis: Localized edema[ICD10: R60.0] Sandra Barron MD, [facility] CPT-4: 55392 02/19/2016 ([id number]) Miscellaneous no charge Diagnosis: Laceration without foreign body of left upper arm, subsequent encounter[ICD10: S41.112D] Diagnosis: Abrasion of scalp, subsequent encounter[ICD10: S00.01XD] Sandra Barron MD , [facility] CPT-4: 68479 02/12/2016 ([id number]) 36614 EST. PATIENT, LEVEL IV Diagnosis: Contusion of left lower leg, initial encounter[ICD10: S80.12XA] Diagnosis: Abrasion of scalp, initial encounter[ICD10: S00.01XA] Diagnosis: Laceration without foreign body of left upper arm, initial encounter[ ICD10: S41.112A] Diagnosis: Localized edema[ICD10: R60.0] Diagnosis: Hypothyroidism, unspecified[ICD10: E03.9] Diagnosis: Essential (primary) hypertension[ICD10: I10] Alexandria Barron MD, [facility] CPT-4: 09092 02/08/2016 ([id number]) 35825 EST. PATIENT, LEVEL IV Diagnosis: Cough[ICD10: R05] Diagnosis: Low back pain[ICD10: M54.5] Diagnosis: Allergic rhinitis due to pollen[ICD10: J30.1] Diagnosis: Acute upper respiratory infection, unspecified[ICD10: J06.9] Diagnosis: Acute bronchitis, unspecified[ICD10: J20.9] Sandra Barron MD, [facility] CPT-4: 63166 11/16/2015 ([id number]) 77550 EST. PATIENT, LEVEL IV Diagnosis: Hypothyroidism, unspecified[ICD10: E03.9] Diagnosis: Lymphedema, not elsewhere classified[ICD10: I89.0] Alexandria Barron MD, [facility] CPT-4: 22328 07/18/2015 89122 EST. PATIENT, LEVEL IV Diagnosis: Contusion of left lower leg, subsequent encounter[ICD10: S80.12XD] Diagnosis: Cellulitis of left lower limb[ICD10: L03.116] Светлана Barron MD, [facility] CPT-4: 54002 06/27/2015 70253 EST. PATIENT, LEVEL III Diagnosis: Contusion of left lower leg, initial encounter[ICD10: S80.12XA] Diagnosis: Cellulitis of left lower limb[ICD10: L03.116] Светлана Barron MD, [facility] CPT-4: 46561 06/19/2015 ([id number]) 43707 EST. 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 PATIENT, LEVEL III Diagnosis: Rosacea, acne[ICD9: 695.3] Diagnosis: Lymphedema[ICD9: 457.1] Sandra Barron MD, [facility] CPT-4: 02433 02/27/2015 ([id number]) 47316 EST. PATIENT, LEVEL III Diagnosis: Right leg swelling[ICD9: 729.81] Alexandria Barron MD, [facility] CPT-4: 03666 01/26/2015 ([id number]) 04631 EST. PATIENT, LEVEL III Diagnosis: CELLULITIS OF LEG[ICD9: 682.6] [facility] Ann [facility]randjanett [facility] CPT-4 : 44453 01/16/2015 ([id number]) OFFICE VISIT, NEW - LEVEL 4 Diagnosis: Back pain[ICD9: 724.5] Diagnosis: Lymphedema[ICD9: 457.1] Diagnosis: Sacroiliitis[ICD9: 720.2] Diagnosis: Chronic pain[ICD9: 338.29] Diagnosis: HYPOTHYROIDISM[ICD9: 244.9] Diagnosis: Dysphagia[ICD9: 787.20] [facility] CPT-4: 01253 12/05/2014 Plan of Care Planned Activity Notes [...] paracentesis. Lymphedema - continue with compression 07/23/2018 Patient Education: Patient Medication Summary Completed [...] while seated. 07/07/2018 Appointment: Alexandria Barron WPtel: [address] [place], [place] [phone] (15 min) Moderate 07/07/2018 Patient Education: Patient [...] edema. 06/22/2018 Appointment: Alexandria Barron WPtel: [phone] [facility] (15 min) Moderate 06/22/2018 Patient Education: Patient Medication Summary Completed 06/22/2018 Appointment: Alexandria Barron WPtel: [phone] [facility] (15 min) Moderate 05/27/2018 Visit Plan: Hypertension [...] of over-medication. 05/25/2018 Appointment: Alexandria Barron WPtel: [facility]9 [facility] (15 min) Moderate 05/25/2018 Patient Education: Patient Medication Summary Completed 05/25/2018 Patient Education: Back Pain Completed 05/25/2018 Appointment: Светлана Garcia WPtel: [facility]9 [facility] (30 min) Complex 05/15/2018 Visit Plan: Hypertension [...] in clinic. 04/23/2018 Appointment: Alexandria Barron WPtel: [address] [place], [place] [address] (15 min) Moderate 04/23/2018 Patient Education: Patient [...] request. 04/01/2018 Appointment: [phone] ([facility] min) Moderate 04/01/2018 Patient Education: [...] goes well. 03/18/2018 Appointment: Alexandria Bar[phone] [place] (15 min) Moderate 03/18/2018 Patient [...] Calmoseptine on buttock. 03/09/2018 Appointment: Alexandria Barron WPtel:[phone] [facility] (15 min) Moderate 03/09/2018 Patient Education: [...] Appointment: Alexandria Barron WPtel: [phone] [facility] (15 min) Moderate 02/12/2018 Patient Education: Patient Medication Summary Completed 02/12/2018 Visit Plan: Bronchitis- Pt advised to increase fluids, vitamin C. Discussed natural and expected course of this diagnosis and need to alert me if symptoms do not follow expected course, or if any worse. RX sent to patient's pharmacy. 12/26/2017 Appointment: Sandra Mcdonald WPtel: [phone] [phone] [place] (15 min) Moderate 12/26/2017 Patient [...] when seated. 12/04/2017 Appointment: Alexandria Barron WPtel: [phone] [facility] (30 min) Complex 12/04/2017 Patient Education: Patient Medication Summary Completed 12/04/2017 Visit Plan: Yeast rash - The patient was instructed in appropriate care. The patient was instructed to use the ointment as per RX. The patient is to call for any change in symptoms, increase in size of the lesion, increase in pain, worsening redness, warmth, discharge. 11/13/2017 Appointment: Светлана Garcia WPtel: [phone] [facility] (30 min) Complex 11/13/2017 Patient Education: [...] wound care. 11/06/2017 Appointment: Alexandria Barron WPtel: [phone] [facility] (30 min) Complex 11/06/2017 Patient Education: [...] edema. 10/29/2017 Appointment: [facility]лана [phone] ([facility] min) Moderate 10/29/2017 Patient [...] pennsaid sample 09/04/2017 Appointment: Alexandria Barron WPtel: [facility]5 [facility] (15 min) Moderate 09/04/2017 Patient Education: Patient Medication Summary Completed 09/04/2017 Appointment: Светлана Garcia WPtel: [facility] (15 min) Moderate 08/18/2017 Visit Plan: Skin lesion on face - lesion removed with scalpel and dressed with medihoney, pt to RTC in 10 days for treatment of the lesion if not fully resolved. 08/08/2017 Appointment: Alexandria Barron WPtel: [facility] (30 min) Complex 08/08/2017 Patient Education: [...] Appointment: Alexandria Barron WPtel: [phone] [facility] (15 min) Moderate 05/29/2017 Patient Education: Patient Medication Summary Completed 05/29/2017 Appointment: Alexandria Barron WPtel: [phone] [facility] (15 min) Moderate 04/30/2017 Referral: Alberta Wilks [address] [place] [address] Patient informed. Referral info faxed. Completed 04/28/2017 [...] Alexandria Barron WPtel: [facility]1 [facility] (15 min) Moderate 04/16/2017 Patient Education: Patient Medication Summary Completed 04/16/2017 Care Plan: Referral Order SNOMED-CT : [id number] Pending 04/16/2017 Visit Plan: Wound healed - no further treatment at this time. 02/24/2017 Appointment: Nurse Visit 02/24/2017 Patient Education: Patient Medication Summary Completed 02/24/2017 Appointment: Nurse Visit 02/18/2017 Appointment: Светлана Garcia WPtel: [phone] [facility] [place] (30 min) Complex 02/14/2017 Visit Plan: Cellulitis - The patient was instructed in appropriate wound care. The patient was instructed to use the antibiotic as per RX. The patient is to call for any change in symptoms, increase in size of the lesion, increase in pain, worsening redness, warmth, discharge. 02/10/2017 Appointment: Светлана Garcia [facility]Ptel[phone] (30 min) Complex 02/10/2017 Patient Education: Patient [...] intake. 01/21/2017 Appointment: Alexandria Barron WPtel: [phone] [facility] (15 min) Moderate 01/21/2017 Patient Education: [...] not improving. 12/18/2016 Appointment: Alexandria Barron WPtel: [phone] [facility] (15 min) Moderate 12/18/2016 Patient Education: [...] to specialist 08/26/2016 Appointment: Alexandria Barron WPtel: [facility]9 [facility] (15 min) Moderate 08/26/2016 Patient Education: Patient Medication Summary Completed 08/26/2016 Care Plan: Referral Order SNOMED-CT : [id number] Pending 08/26/2016 Appointment: Sandra Mcdonald WPtel: [phone] (30 min) Complex 03/11/2016 Visit Plan: Edema - improved-pt has been advised to elevate legs to prevent dependent edema, compression has been recommended to help to naturally decrease peripheral edema. Diuretic use has been discussed and pt has been instructed in appropriate use of such medication as necessary to further attempt to reduce peripheral edema. 02/27/2016 Appointment: Sandra Mcdonald WPtel: [facility]9 [phone] (30 min) Complex 02/27/2016 Patient Education: Patient Medication Summary Completed 02/27/2016 Appointment: Nurse Visit 02/20/2016 Patient Education: Patient Medication Summary Completed 02/20/2016 Visit Plan: Abrasion of scalp-healing well-continue wound care as directed Laceration left arm-healing well-continue wound care-may leave open to air Contusion of left oih-wjtkgxhwr-pxyxyslq to monitor Edema-elevate legs-follow up tomorrow for quick check of swelling 02/19/2016 Appointment: Sandra Mcdonald WPtel: [phone] (15 min) Moderate 02/19/2016 Patient Education: [...] peripheral edema. 02/08/2016 Appointment: Alexandria Barron WPtel: [address] [place], [place] [address] (15 min) Moderate 02/08/2016 Patient Education: Patient [...] of swelling. 07/18/2015 Appointment: Alexandria Barron WPtel: [facility]5 [facility] (15 min) Moderate 07/18/2015 Patient Education: [...] not improving. 04/03/2015 Appointment: Alexandria Barron WPtel: [facility]4 [facility] (15 min) Moderate 04/03/2015 Patient Education: Patient Medication Summary Completed 04/03/2015 Visit Plan: Rosacea-continue finacea as directed-add metronidazole cream twice daily-call if symptoms do not improve or if any worse. Jvbuxztikk-hxqgbgx-hwxochkf with wraps-no change in treatment 02/27/2015 Appointment: [...] EGD. 12/05/2014 Appointment: Alexandria Barron [facility]Ptel[phone] [place] ([place] New Patient 12/05/2014 Patient Education: Patient Medication Summary Completed 12/05/2014 Patient Education: Hypertension Completed 12/05/2014 Referral: Jose A Rios Referral Appointment Requested Referral: [facility] Wilks [facility] [facility] [place] Referral Appointment Requested Referral: Amarjit Veronica [facility]el[phone] [place] Referral Appointment Requested Referral: Jayro [...] do not improve or if any worse. Fwtvlwmzst-gqkplal-ewsvxxvz with wraps-no change in treatment . Left [...] cut back on her chocolate intake. . Cellulitis - The patient was instructed [...] further attempt to reduce peripheral edema. . Chronic pain - continue with the [...] ulcer on buttock - Calmoseptine on buttock. take lasix 40mg daily x 1 week [...] - stop oxygen per pt request. . Bradycardia - Referral to Dr. Wilks. [...] months based on previous levels of control. get labs one week before next appointment [...] directed, and understands the consequences of over-medication. Cream twice a day x 3 days, [...] to keep legs elevated when seated. . Edema - improved-pt has been advised [...] antibiotic course, call if not improving. . Weeping edema bilateral lower legs - [...] with wound care. . Dressing change-return tomorrow rahel . Bronchitis- Pt advised to increase fluids, [...] leave open to air Contusion of left diq-urbjfzkaj-egadyvxz to monitor Edema-elevate legs-follow up tomorrow for [...] lesion removed with scalpel and dressed with judy severino to RTC in 10 days for treatment of the lesion if not fully resolved.
--- OUTSIDE RECORDS SUMMARY | 2018-11-23 16:05 | XMS REPORT | CCD ---
Author Author [facility] Organization [facility] Address [address] [place] [address] Phone Care Team Providers Care Prize Coordinator Name Role Phone PP Unavailable CCM Unavailable Summary Purpose Interface Exchange Insurance Providers Payer name Policy type / Coverage type Covered democrat ID Effective Begin Date Effective End Date WPS Medicare Part B Medicare Part B [id number] Unknown Unknown [facility] Medicare Part B [id number] Unknown Unknown Family history Brother Diagnosis Age At Onset Diabetes Unknown Skin cancer Unknown Father Diagnosis Age At Onset Heart disease Unknown Mother Diagnosis Age At Onset advanced age Unknown Hypothyroid Unknown Social History Social History Element Codes Description Effective Dates Marital status Unknown Single 12/05/2014 Number of children Unknown 0 12/05/2014 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 Quit 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 quit 20-25 [...] ICD-9: 457.1 ICD-10: I89.0 Active 02/19/2016 Unknown Localized edema ICD-9 : 782.3 ICD-10: [...] classified ICD-9: 457.1 ICD-10: I89.0 02/19/2016 Active Localized edema ICD-9 : 782.3 ICD-10: [...] Fill Instructions oxycodone 5 mg tablet RxNorm: 0703292 2 Tablet(s) PO BID 201708/14/2018 Active nadolol 20 mg tablet RxNorm: 601037 1/2 Tablet(s) PO daily No Stop Date Active oxycodone 5 mg tablet RxNorm: 9716522 2 Tablet(s) PO BID 201707/15/2018 Inactive nadolol 20 mg tablet RxNorm: 118137 1 Tablet(s) TAKE 1 TABLET BY MOUTH EVERY DAY 05/25/2018 06/21/2018 Inactive Generic For:*CORGARD 20 MG TABLET 05/21/2018 10:10: 43 AM spironolactone 50 mg tablet RxNorm: 434154 TAKE 1 TABLET BY MOUTH EVERY DAY 05/21/2018 06/03/2018 Inactive Generic For:ALDACTONE 50MG 05/21/2018 10:10:31 AM Ocuvite tablet RxNorm : 1 Tablet(s) PO BID 05/21/2018 06/03/2018 Inactive pramipexole 0.25 mg tablet RxNorm: 306006 TAKE 1 TABLET BY MOUTH TWICE DAILY 05/21/2018 06/03/2018 Inactive Generic For:MIRAPEX 0.25MG TAB 05/21/2018 10:10:48 AM levothyroxine 88 mcg tablet RxNorm: 309014 TAKE 1 TABLET BY MOUTH EVERY DAY WITH A 100MCG TABLET 05/21/2018 06/03/2018 Inactive Generic For:*SYNTHROID 0.088MG TAB 05/21/2018 10:10:11 AM levothyroxine 100 mcg tablet RxNorm: 294090 TAKE 1 TABLET BY MOUTH EVERY DAY , TAKE WITH AN 88 MCG TABLET 05/21/2018 Inactive Generic For:*SYNTHROID 100 MCG TABLET 05/21/2018 10:10:04 AM Vitamin D3 2,000 unit capsule RxNorm: 203023 1 Capsule(s) PO daily 05/21/2018 No Stop Date Active nadolol 20 mg tablet RxNorm: 308714 TAKE 1/2 TABLET BY MOUTH EVERY DAY 05/21/2018 05/24/2018 Inactive Generic For:*CORGARD 20 MG TABLET 05/21/2018 10:10:43 AM oxycodone 5 mg tablet RxNorm: 9622313 1 Tablet(s) PO QID as needed 05/15/2018 06/13/2018 Inactive pramipexole 0.25 mg tablet RxNorm: 189119 1 Tablet(s) PO BID 05/20/2018 Inactive Requip 0.25 mg tablet RxNorm: 280466 1 Tablet(s) PO BID 201705/03/2018 Inactive Lasix 40 mg tablet RxNorm: 091016 1 Tablet(s) PO daily as needed edema if more than 3 pounds weight loss in 48 hours 04/23/2018 08/20/2018 Active potassium chloride ER 10 mEq tablet,extended release RxNorm: 779600 1 Tablet(s) PO daily as needed when taking lasix 04/23/2018 08/20/2018 Active potassium chloride ER 10 mEq tablet,extended release RxNorm: 158721 1 Tablet(s) PO daily as needed when taking lasix 04/01/2018 04/22/2018 Inactive Lasix 40 mg tablet RxNorm: 913093 1 Tablet(s) PO daily as needed edema 04/01/2018 04/22/2018 Inactive oxycodone 5 mg tablet RxNorm: 4830764 1 Tablet(s) PO QID as needed 03/18/2018 04/16/2018 Inactive levothyroxine 88 mcg tablet RxNorm: 606667 1 Tablet(s) PO daily . Take with 100 mcg tablet. 02/19/2018 05/20/2018 Inactive spironolactone 50 mg tablet RxNorm: 567567 Tablet(s) TAKE 1 TABLET BY MOUTH DAILY 02/19/2018 05/20/2018 Inactive levothyroxine 100 mcg tablet RxNorm: 105991 1 Tablet(s) PO daily . Take with 88 mcg tablet 02/19/2018 02/18/2018 Inactive levothyroxine 88 mcg tablet RxNorm: 745693 1 Tablet(s) PO daily . Take with 100 mcg tablet. 02/19/2018 02/18/2018 Inactive levothyroxine 100 mcg tablet RxNorm: 861960 1 Tablet(s) PO daily . Take with 88 mcg tablet 02/19/2018 05/20/2018 Inactive spironolactone 25 mg tablet RxNorm: 693808 1 Tablet(s) PO daily 02/12/2018 02/18/2018 Inactive pt will let you know when she is ready for the refill oxycodone 10 mg tablet RxNorm: 9889480 1 Tablet(s) PO TID as needed 02/12/2018 03/13/2018 Inactive oxycodone 10 mg tablet RxNorm: 1454127 1 Tablet(s) PO Q6 as needed 01/22/2018 02/11/2018 Inactive spironolactone 50 mg tablet RxNorm: 188168 TAKE 1 TABLET BY MOUTH DAILY 01/05/2018 02/11/2018 Inactive Generic For:ALDACTONE 50MG 01/05/2018 8:27:46 AM Kenalog 40 mg/mL suspension for injection RxNorm: 8175210 1 Milliliter(s) Inj 12/26/2017 12/26/2017 Inactive Zithromax Z-Fransisco 250 mg tablet RxNorm: 571978 1 Tablet(s) PO UD 12/26/2017 12/30/2017 Inactive oxycodone 10 mg tablet RxNorm: 5937136 1 Tablet(s) PO Q6 as needed 11/25/2017 12/24/2017 Inactive nystatin 100,000 unit/gram topical powder RxNorm: 893418 1 Application TOP BID 11/13/2017 No Stop Date Active nystatin 100,000 unit/gram topical cream RxNorm: 424910 Gram(s) TOP QID 11/12/2017 11/18/2017 Inactive nystatin 100,000 unit/gram topical cream RxNorm: 567134 Gram(s) TOP QID 11/12/2017 11/11/2017 Inactive Lasix 20 mg tablet RxNorm: 774236 1 Tablet(s) PO daily as needed edema 11/03/2017 11/07/2017 Inactive potassium chloride ER 10 mEq tablet,extended release RxNorm: 301273 1 Tablet(s) PO daily while on the lasix 11/03/201701/2018 Inactive Keflex 500 mg capsule RxNorm: 216823 1 Capsule(s) PO TID 201711/07/2017 Inactive potassium chloride ER 10 mEq tablet,extended release RxNorm: 726692 1 Tablet(s) PO daily while on the lasix 10/29/2017 Inactive Lasix 20 mg tablet RxNorm: 984498 1 Tablet(s) PO daily as needed edema 10/29/2017 10/31/2017 Inactive oxycodone 10 mg tablet RxNorm: 0678749 1 Tablet(s) PO Q6 as needed 09/29/2017 10/28/2017 Inactive levothyroxine 200 mcg tablet RxNorm: 626418 TAKE 1 TABLET BY MOUTH DAILY 09/01/2017 02/18/2018 Inactive Generic For:*SYNTHROID 0.2MG TAB 09/01/2017 8:36:32 AM Bactrim DS 800 mg-160 mg tablet RxNorm: 560675 1 Tablet(s) PO BID 08/07/2017 08/16/2017 Inactive Bactrim DS 800 mg-160 mg tablet RxNorm: 223483 1 Tablet(s) PO BID 08/07/2017 08/06/2017 Inactive oxycodone 10 mg tablet RxNorm: 0564383 1 Tablet(s) PO Q6 as needed 07/31/2017 08/29/2017 Inactive spironolactone 50 mg tablet RxNorm: 106783 1 Tablet(s) PO daily 06/30/2017 12/26/2017 Inactive Not due for a refill until next month nadolol 20 mg tablet RxNorm: 450389 1 Tablet(s) PO daily 201611/28/2017 Inactive nadolol 20 mg tablet RxNorm: 661779 1/2 Tablet(s) PO daily 11/28/2017 Inactive nadolol 20 mg tablet RxNorm: 672102 1/2 Tablet(s) PO daily 05/21/2017 Inactive oxycodone 10 mg tablet RxNorm: 6255489 1 Tablet(s) PO Q6 as needed 04/01/2017 04/30/2017 Inactive levothyroxine 200 mcg tablet RxNorm: 406995 TAKE 1 TABLET BY MOUTH DAILY 03/10/2017 08/31/2017 Inactive Generic For:*SYNTHROID 0.2MG TAB 03/10/2017 8:49:05 AM potassium chloride ER 10 mEq tablet,extended release RxNorm: 356728 1 Tablet(s) PO daily while on the lasix 02/18/2017 Inactive Lasix 20 mg tablet RxNorm: 527540 1 Tablet(s) PO daily as needed edema 02/18/2017 02/20/2017 Inactive Keflex 500 mg capsule RxNorm: 759487 1 Capsule(s) PO TID 201602/16/2017 Inactive Lasix 20 mg tablet RxNorm: 846829 1 Tablet(s) PO daily 201602/15/2017 Inactive potassium chloride ER 10 mEq tablet,extended release RxNorm: 662526 1 Tablet(s) PO daily while on the lasix 02/14/2017 Inactive Lasix 20 mg tablet RxNorm: 759537 1 Tablet(s) PO daily 201602/13/2017 Inactive potassium chloride ER 10 mEq tablet,extended release RxNorm: 256068 1 Tablet(s) PO daily while on the lasix 02/14/2017 Inactive oxycodone 10 mg tablet RxNorm: 4784610 1 Tablet(s) PO Q6 as needed 02/05/2017 03/06/2017 Inactive minocycline 50 mg tablet RxNorm: 776229 1 Tablet(s) PO Q72H 12/03/2017 Inactive spironolactone 50 mg tablet RxNorm: 503455 1 Tablet(s) PO daily 12/18/2016 06/15/2017 Inactive Not due for a refill until next month oxycodone 10 mg tablet RxNorm: 4054201 1 Tablet(s) PO Q6 as needed 12/05/2016 01/03/2017 Inactive nadolol 20 mg tablet RxNorm: 903480 1 Tablet(s) PO daily 201604/15/2017 Inactive oxycodone 10 mg tablet RxNorm: 1960150 1 Tablet(s) PO Q6 as needed 09/30/2016 10/29/2016 Inactive levothyroxine 200 mcg tablet RxNorm: 053836 TAKE 1 TABLET BY MOUTH DAILY 09/12/2016 03/09/2017 Inactive Generic For:*SYNTHROID 0.2MG TAB 09/12/2016 8:41:27 AM oxycodone 10 mg tablet RxNorm: 8854888 1 Tablet(s) PO Q6 as needed 08/06/2016 09/04/2016 Inactive oxycodone 10 mg tablet RxNorm: 3741644 1 Tablet(s) PO Q6 as needed 06/10/2016 07/09/2016 Inactive oxycodone 10 mg tablet RxNorm: 8029543 1 Tablet(s) PO Q6 as needed 04/05/2016 05/04/2016 Inactive levothyroxine 200 mcg tablet RxNorm: 055745 1 Tablet(s) PO daily 03/14/2016 09/09/2016 Inactive oxycodone 10 mg tablet RxNorm: 3304541 1 Tablet(s) PO Q6 as needed 02/08/2016 03/08/2016 Inactive Kenalog 40 mg/mL suspension for injection RxNorm: 6348580 Milliliter(s) Inj 11/16/2015 11/16/2015 Inactive Zithromax Z-Fransisco 250 mg tablet RxNorm: 715740 1 Tablet(s) PO UD 11/16/2015 11/20/2015 Inactive zpack, take probiotic while on abx oxycodone 10 mg tablet RxNorm: 2380827 1 Tablet(s) PO Q6 as needed 11/16/2015 02/07/2016 Inactive ceftriaxone 500 mg solution for injection RxNorm: 7214204 Inj 11/16/2015 11/16/2015 Inactive oxycodone 10 mg tablet RxNorm: 9881918 1 Tablet(s) PO Q6 as needed 10/11/2015 11/15/2015 Inactive levothyroxine 200 mcg tablet RxNorm: 503695 1 Tablet(s) PO daily 09/14/2015 03/11/2016 Inactive oxycodone 10 mg tablet RxNorm: 9509794 1 Tablet(s) PO Q6 as needed 08/10/2015 10/10/2015 Inactive Keflex 500 mg capsule RxNorm: 701897 1 Capsule(s) PO TID 201407/03/2015 Inactive Keflex 500 mg capsule RxNorm: 218735 1 Capsule(s) PO TID 201406/25/2015 Inactive oxycodone 10 mg tablet RxNorm: 6105532 1 Tablet(s) PO Q6 as needed 04/03/2015 08/09/2015 Inactive oxycodone 10 mg tablet RxNorm: 0332016 1 Tablet(s) PO Q6 as needed 02/14/2015 04/02/2015 Inactive Keflex 500 mg capsule RxNorm: 822820 1 Capsule(s) PO TID 201401/22/2015 Inactive Culturelle 10 billion cell capsule RxNorm: 354722 1 Capsule(s) PO daily 01/16/2015 02/14/2015 Inactive Dulcolax Stool Softener (docusate) 100 mg capsule RxNorm: 8083908 1 Capsule(s) PO daily 12/05/2014 02/11/2018 Inactive [SAVINGS FOR NON-COVERED DRUGS -- BIN:[id number], PCN: [id number], Group: [id number], ID# [id number], Questions: . THIS IS NOT INSURANCE.] Restasis 0.05 % eye drops in a dropperette RxNorm: 075337 1 Drop(s) OPH BID No Start Date Active Vitamin D3 2,000 unit capsule RxNorm: 077145 1 Capsule(s) PO daily No Start Date 05/20/2018 Inactive minocycline 50 mg tablet RxNorm: 251642 1 Tablet(s) PO QHS No Start Date 01/20/2017 Inactive nadolol 20 mg tablet RxNorm: 378278 1 Tablet(s) PO daily No Start Date 11/05/2016 Inactive nadolol 20 mg tablet RxNorm: 589792 1 Tablet(s) PO daily No Start Date 11/05/2016 Inactive Ocuvite tablet RxNorm : 1 Tablet(s) PO BID No Start Date 05/20/2018 Inactive oxycodone 10 mg tablet RxNorm: 6332805 1 Tablet(s) PO Q6 as needed No Start Date 02/13/2015 Inactive Dulcolax Stool Softener (docusate) 100 mg capsule RxNorm: 5615832 1 Capsule(s) PO BID No Start Date 12/04/2014 Inactive Multivitamin 50 Plus tablet RxNorm: 1 Tablet(s) PO QAM No Start Date 02/11/2018 Inactive Finacea 15 % topical gel RxNorm: 8874761 TOP No Start Date 05/24/2018 Inactive Synthroid 200mcg Oral RxNorm: oral No Start Date 09/13/2015 Inactive spironolactone 50 mg tablet RxNorm: 675014 1 Tablet(s) PO daily No Start Date 12/17/2016 Inactive spironolactone 50 mg tablet RxNorm: 158012 1 Tablet(s) PO daily No Start Date 02/11/2018 Inactive Medication Administered Medication Codes Instructions Start Date Status Kenalog 40 mg/mL suspension for injection RxNorm: 4975365 1Milliliter 12/26/2017 No longer Active ceftriaxone 500 mg solution for injection RxNorm: 1036071 11/16/2015 No longer Active Kenalog 40 mg/mL suspension for injection RxNorm: 1366281 Milliliter 11/16/2015 No longer Active Immunizations Vaccine Codes Date Status Influenza CVX: 141 04/23/2018 completed Influenza CVX: 141 04/16/2017 completed Influenza CVX: 141 08/26/2016 completed Assessments Condition Codes Effective Dates Essential (primary) hypertension ICD-10: I10 ICD-9: 401.1 07/07/2018 Atrophy of thyroid (acquired) ICD-10: E03.4 ICD-9: 244.8 07/07/2018 Lymphedema, not elsewhere classified ICD-10: I89.0 ICD-9: 457.1 07/07/2018 Localized edema ICD-10: R60.0 ICD-9: 782.3 [...] Reason For Visit Effective Dates Notes cough 07/07/2018 Hospital Follow Up 06/22/2018 edema [...] Item Item Code Result Date Free T4 Spn764 FREE T4 1.92 ng/dL 04/24/2018 Tsh Ord6 [...] 31.1 pg 04/24/2018 Cbc With Differential Ord2 Bibb% 13.0 % 04/24/2018 Cbc With Differential Ord2 [...] 1.00 K/ul 04/24/2018 Cbc With Differential Ord2 Bibb ABS# 0.4 K/ul 04/24/2018 Cbc With Differential Ord2 Eos ABS# 0.0 K/ul 04/24/2018 Cbc With Differential Ord2 Baso ABS# 0.0 K/ul 04/24/2018 Comp Metabolic Qpg112 NA 138 mEq/L 04/24/2018 Comp Metabolic Xuf160 K 3.9 mEq/L 04/24/2018 Comp Metabolic Ntf759 CL 97 mEq/L 04/24/2018 Comp Metabolic Cqr537 CO2 32.0 mEq/L 04/24/2018 Comp Metabolic Pmw838 ANION GAP 13 04/24/2018 Comp Metabolic Aiu757 GLUCOSE 194 mg/dL 04/24/2018 Comp Metabolic His145 Creat 0.8 mg/dL 04/24/2018 Comp Metabolic Rrf920 eGFR 70 ml/min/1.73m2 04/24/2018 Comp Metabolic Cgi914 BUN 20 mg/dL 04/24/2018 Comp Metabolic Xcy921 B/C Ratio 24.1 Ratio 04/24/2018 Comp Metabolic Gpt622 CALCIUM 9.4 mg/dL 04/24/2018 Comp Metabolic Awy694 ALK PHOS 110 U/L 04/24/2018 Comp Metabolic Cjl340 AST(SGOT) 33 U/L 04/24/2018 Comp Metabolic Wtb960 ALT(SGPT) 16 U/L 04/24/2018 Comp Metabolic Fdf430 BILI T 1.8 mg/dL 04/24/2018 Comp Metabolic Wfm043 ALBUMIN 4.0 g/dL 04/24/2018 Comp Metabolic Xro972 TPRO 5.7 g/dL 04/24/2018 Comp Metabolic Sdf972 GLOB 1.7 g/dL 04/24/2018 Comp Metabolic Jhe861 A/G Ratio 2.3 Ratio 04/24/2018 Comp Metabolic Opb639 Osmo 284 mOsmo 04/24/2018 Tsh Ord6 TSH (3rd IS) 0.07 uIU/mL 02/13/2018 Free T4 Gbj660 FREE T4 1.85 ng/dL 02/13/2018 %Hba1C Lku204 % HbA1c 04811-5 5.9 % 01/21/2017 %Hba1C Lxz865 Gluc Ave 123 mg/dL 01/21/2017 Comp Metabolic Lzn209 NA 136 mEq/L 01/21/2017 Comp Metabolic Udn734 K 4.3 mEq/L 01/21/2017 Comp Metabolic Doi670 CL 99 mEq/L 01/21/2017 Comp Metabolic Qid954 CO2 30.0 mEq/L 01/21/2017 Comp Metabolic Jxr019 ANION GAP 11 01/21/2017 Comp Metabolic Snx370 GLUCOSE 234 mg/dL 01/21/2017 Comp Metabolic Xxk904 Creat 0.5 mg/dL 01/21/2017 Comp Metabolic Ubj382 eGFR 115 ml/min/1.73m2 01/21/2017 Comp Metabolic Nup794 BUN 10 mg/dL 01/21/2017 Comp Metabolic Xbx414 B/C Ratio 18.5 Ratio 01/21/2017 Comp Metabolic Rex522 CALCIUM 8.8 mg/dL 01/21/2017 Comp Metabolic Yme108 ALK PHOS 74 U/L 01/21/2017 Comp Metabolic Zhn273 AST(SGOT) 28 U/L 01/21/2017 Comp Metabolic Xml701 ALT(SGPT) 15 U/L 01/21/2017 Comp Metabolic Jjr983 BILI T 1.1 mg/dL 01/21/2017 Comp Metabolic Lrg551 ALBUMIN 3.8 g/dL 01/21/2017 Comp Metabolic Tiv722 TPRO 5.8 g/dL 01/21/2017 Comp Metabolic Gcj543 GLOB 2.0 g/dL 01/21/2017 Comp Metabolic Tad235 A/G Ratio 1.9 Ratio 01/21/2017 Comp Metabolic Yvz858 Osmo 279 mOsmo 01/21/2017 Tsh Ord6 hTSH II 0.80 uIU/mL 04/03/2015 Bili D Ord93 BILI D 0.1 mg/dL 04/03/2015 Bili D Ord93 BILI I 0.9 mg/dL 04/03/2015 Free T4 Edc506 FREE T4 1.27 ng/dL 04/03/2015 Cbc With [...] Ord2 RDW 15.6 % 04/03/2015 Comp Metabolic Uyp290 NA 136 mEq/L 04/03/2015 Comp Metabolic Qtz048 K 4.3 mEq/L 04/03/2015 Comp Metabolic Hnj748 CL 99 mEq/L 04/03/2015 Comp Metabolic Tgj298 CO2 29.0 mEq/L 04/03/2015 Comp Metabolic Gak758 ANION GAP 12 04/03/2015 Comp Metabolic Dxx211 GLUCOSE 120 mg/dL 04/03/2015 Comp Metabolic Whi902 Creat 0.5 mg/dL 04/03/2015 Comp Metabolic Taz264 eGFR 118 ml/min/1.73m2 04/03/2015 Comp Metabolic Omv995 BUN 11 mg/dL 04/03/2015 Comp Metabolic Tke100 B/C Ratio 20.8 Ratio 04/03/2015 Comp Metabolic Xdv443 CALCIUM 9.3 mg/dL 04/03/2015 Comp Metabolic Xfx439 ALK PHOS 61 U/L 04/03/2015 Comp Metabolic Mrn032 AST(SGOT) 28 U/L 04/03/2015 Comp Metabolic Maw379 ALT(SGPT) 16 U/L 04/03/2015 Comp Metabolic Fiq115 BILI T 1.0 mg/dL 04/03/2015 Comp Metabolic Nls946 ALBUMIN 4.1 g/dL 04/03/2015 Comp Metabolic Uxr493 TPRO 6.1 g/dL 04/03/2015 Comp Metabolic Mqt955 GLOB 2.0 g/dL 04/03/2015 Comp Metabolic Oai718 A/G Ratio 2.1 Ratio 04/03/2015 Comp Metabolic Hgw325 Osmo 273 mOsmo 04/03/2015 Review of Systems System Result Effective Dates Constitutional recent illness 07/07/2018 Constitutional No chills [...] FLU VACC PRSV FREE INC ANTIG CPT-4: 84211 04/23/2018 TRIAMCINOLONE ACET INJ NOS CPT-4: J3301 12/26/2017 ADMIN INFLUENZA VIRUS VAC CPT-4: G0008 04/16/2017 FLU VACC PRSV FREE INC ANTIG CPT-4: 39097 04/16/2017 TRIAMCINOLONE ACET INJ NOS CPT-4: J3301 11/16/2015 ROCEPHIN, PER 250 MG CPT-4: J0696 11/16/2015 Vital Signs Date Vital 07/07/2018 Blood Pressure 1: 112/70 Code : 8480-6 Heart Rate 1: 88 bpm Height: SpO2: 94% Temperature: 36.7 (C) / 98.1 (F) Weight: 06/22/2018 Blood Pressure 1: 108/64 Code : 8480-6 Heart Rate 1: 63 bpm Height: 5'1" SpO2: 98% Weight: 05/25/2018 Blood Pressure 1: 118/60 Code : 8480-6 BMI: 23.6 Code : 17490-9 Heart Rate 1 : 59 bpm Height: 5'1" Respiratory Rate: 18 bpm SpO2: 99% Temperature: 37.0 (C) / 98.6 (F ) Weight: 125 lbs 04/23/2018 Blood Pressure 2: 118/62 Code : 8480-6 BMI: 22.3 Code : 35818-3 Heart Rate 1 : 73 bpm Height: 5'1" SpO2: 97% Weight: 118 lbs 04/01/2018 Blood Pressure 1: 136/72 Code : 8480-6 BMI: 26.6 Code : 45833-7 Heart Rate 1 : 75 bpm Height: 5'1" SpO2: 98% Weight: 141 lbs 03/18/2018 Blood Pressure 1: 132/62 Code : 8480-6 Heart Rate 1: 61 bpm Height: 5'1" SpO2: 96% Weight: 03/09/2018 Blood Pressure 1: 122/60 Code : 8480-6 Heart Rate 1: 65 bpm Height: 5'1" SpO2: 98% Weight: 02/12/2018 Blood Pressure 1: 100/68 Code : 8480-6 BMI: 24.3 Code : 72547-8 Heart Rate 1 : 68 bpm Height: 5'1" SpO2: 96% Weight: 128 lbs 13 oz 12/26/2017 Blood Pressure 1: 126/68 Code : 8480-6 BMI: 26.7 Code : 27902-7 Heart Rate 1 : 66 bpm Height: 5'1" SpO2: 98% Temperature: 36.8 (C) / 98.2 (F) Weight: 141 lbs 8 oz 12/04/2017 Blood Pressure 1: 132/76 Code : 8480-6 BMI: 26.5 Code : 85456-0 Heart Rate 1 : 73 bpm Height: 5'1" SpO2: 96% Weight: 140 lbs 11/13/2017 Blood Pressure 1: 126/62 Code : 8480-6 Heart Rate 1: 69 bpm Height: 5'1" SpO2: 96% Weight: 11/06/2017 Blood Pressure 1: 142/84 Code : 8480-6 BMI: 25.7 Code : 15614-9 Heart Rate 1 : 78 bpm Height: 5'1" SpO2: 95% Temperature: 36.9 (C) / 98.5 (F) Weight: 136 lbs 10/29/2017 Blood Pressure 1: 132/68 Code : 8480-6 BMI: 26.8 Code : 72220-4 Heart Rate 1 : 70 bpm Height: 5'1" SpO2: 98% Weight: 142 lbs 09/04/2017 Blood Pressure 1: 132/74 Code : 8480-6 BMI: 25.9 Code : 45334-3 Heart Rate 1 : 68 bpm Height: 5'1" SpO2: 96% Weight: 137 lbs 08/08/2017 Blood Pressure 1: 118/72 Code : 8480-6 BMI: 26.6 Code : 07320-4 Heart Rate 1 : 68 bpm Height: 5'1" SpO2: 95% Weight: 141 lbs 05/29/2017 Blood Pressure 1: 142/78 Code : 8480-6 BMI: 26.3 Code : 07309-4 Heart Rate 1 : 65 bpm Height: 5'1" SpO2: 95% Weight: 139 lbs 04/16/2017 Blood Pressure 1: 136/62 Code : 8480-6 BMI: 27.4 Code : 42663-7 Heart Rate 1 : 38 bpm Height: 5'1" SpO2: 98% Weight: 145 lbs 02/10/2017 Blood Pressure 1: 124/70 Code : 8480-6 BMI: 27.4 Code : 39349-8 Heart Rate 1 : 70 bpm Height: 5'1" SpO2: 96% Weight: 145 lbs 01/21/2017 Blood Pressure 1: 120/70 Code : 8480-6 BMI: 27.2 Code : 20076-8 Heart Rate 1 : 65 bpm Height: 5'1" SpO2: 95% Weight: 144 lbs 12/18/2016 Blood Pressure 1: 122/74 Code : 8480-6 BMI: 27.4 Code : 00751-9 Heart Rate 1 : 66 bpm Height: 5'1" SpO2: 97% Weight: 145 lbs 08/26/2016 Blood Pressure 1: 110/64 Code : 8480-6 BMI: 28.0 Code : 31695-7 Heart Rate 1 : 67 bpm Height: 5'1" SpO2: 97% Weight: 148 lbs 02/27/2016 Blood Pressure 1: 126/74 Code : 8480-6 Heart Rate 1: 67 bpm Height: 5'1" SpO2: 97% 02/19/2016 Blood Pressure 1: 130/80 Code : 8480-6 BMI: 28.2 Code : 41380-9 Heart Rate 1 : 74 bpm Height: 5'1" SpO2: 96% Weight: 149 lbs 02/08/2016 Blood Pressure 1: 122/78 Code : 8480-6 BMI: 28.2 Code : 31086-1 Heart Rate 1 : 63 bpm Height: 5'1" SpO2: 96% Weight: 149 lbs 11/16/2015 Blood Pressure 1: 128/70 Code : 8480-6 BMI: 27.8 Code : 01511-9 Heart Rate 1 : 64 bpm Height: 5'1" SpO2: 97% Weight: 147 lbs 07/18/2015 Blood Pressure 1: 110/60 Code : 8480-6 BMI: 28.5 Code : 95333-8 Heart Rate 1 : 61 bpm Height: 5'1" SpO2: 97% Weight: 151 lbs 06/27/2015 Blood Pressure 1: 122/60 Code : 8480-6 BMI: 28.9 Code : 53201-3 Heart Rate 1 : 63 bpm Height: 5'1" SpO2: 95% Weight: 153 lbs 06/19/2015 Blood Pressure 1: 120/78 Code : 8480-6 Heart Rate 1: 68 bpm SpO2: 96% Weight: 154 lbs 04/03/2015 Blood Pressure 1: 128/68 Code : 8480-6 BMI: 29.1 Code : 99529-3 Heart Rate 1 : 70 bpm Height: 5'1" SpO2: 97% Weight: 154 lbs 02/27/2015 Blood Pressure 1: 122/84 Code : 8480-6 BMI: 29.5 Code : 04256-5 Heart Rate 1 : 67 bpm Height: 5'1" SpO2: 95% Weight: 156 lbs 01/26/2015 Blood Pressure 1: 132/70 Code : 8480-6 BMI: 30.2 Code : 01682-9 Heart Rate 1 : 76 bpm Height: 5'1" Weight: 160 lbs 01/16/2015 Blood Pressure 1: 140/70 Code : 8480-6 BMI: 30.0 Code : 51255-0 Heart Rate 1 : 78 bpm Height: 5'1" Respiratory Rate: 20 bpm Weight: 159 lbs 12/05/2014 Blood Pressure 1: 138/78 Code : 8480-6 BMI: 30.8 Code : 29514-1 Heart Rate 1 : 76 bpm Height: 5'1" Weight: 163 lbs Functional Status No Functional Status data History of Present Illness Symptom Name Status Result Effective Date Notes Location in the throat 07/07/2018 None Quality [...] data Encounters Encounter Performer Location Codes Date ([id number]) [id number] EST. PATIENT, LEVEL IV Diagnosis: Essential (primary) hypertension[ICD10: I10] Diagnosis: Atrophy of thyroid (acquired)[ICD10: E03.4] Diagnosis: Lymphedema, not elsewhere classified[ICD10: I89.0] Alexandria Barron MD, [facility] CPT-4: 11794 07/07/2018 ([id number]) 80299 EST. PATIENT, LEVEL IV Diagnosis: Essential (primary) hypertension[ICD10: I10] Diagnosis: Localized edema[ICD10: R60.0] Alexandria Barron MD, [facility] CPT- 4: 06366 06/22/2018 ([id number]) [id number] EST. PATIENT, LEVEL IV Diagnosis: Atrophy of thyroid (acquired)[ICD10: E03.4] Diagnosis: Essential (primary) hypertension[ICD10: I10] Diagnosis: Other chronic pain[ICD10: G89.29] Diagnosis: Pain in left knee[ICD10: M25.562] Diagnosis: Low back pain[ICD10: M54.5] [facility] CPT- 4: 43627 05/25/2018 ([id number]) 14498 EST. 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 PATIENT, LEVEL IV Diagnosis: Essential (primary) hypertension[ICD10: I10] Diagnosis: Low back pain[ICD10: M54.5] Diagnosis: Localized edema[ICD10: R60.0] Diagnosis: Other chronic pain[ICD10: G89.29] Diagnosis: Obstructive sleep apnea (adult) (pediatric)[ICD10: G47.33] [facility] CPT-4: 34003 04/01/2018 ([id number]) [id number] EST. PATIENT, LEVEL IV Diagnosis: Essential (primary) hypertension[ICD10: I10] Diagnosis: Other chronic pain[ICD10: G89.29] Diagnosis: Unsteadiness on feet[ICD10: R26.81] [facility] CPT-4: 02996 03/18/2018 ([id number]) [id number] EST. PATIENT, LEVEL IV Diagnosis: Low back pain[ICD10: M54.5] Diagnosis: Localized edema[ICD10: R60.0] Diagnosis: Essential (primary) hypertension[ICD10: I10] Diagnosis: Other chronic pain[ICD10: G89.29] Diagnosis: Pressure ulcer of left buttock, stage 1[ICD10: L89.321] Diagnosis: Obstructive sleep apnea (adult) (pediatric)[ICD10: G47.33] [facility] CPT-4: 26703 03/09/2018 ([id number]) [id number] EST. PATIENT, LEVEL IV Diagnosis: Atrophy of thyroid (acquired)[ICD10: E03.4] Diagnosis: Essential (primary) hypertension[ICD10: I10] Diagnosis: Localized edema[ICD10: R60.0] Diagnosis: Other chronic pain[ICD10: G89.29] Alexandria Barron MD, [facility] CPT-4: 26854 02/12/2018 ([id number]) [id number] EST. PATIENT, LEVEL III Diagnosis: Cough[ICD10: R05] Diagnosis: Acute bronchitis, unspecified[ICD10: J20.9] Sandra Barron MD, [facility] CPT-4: 83178 12/26/2017 ([id number]) 29841 EST. 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 CPT-4: 09052 12/04/2017 [id number] EST. PATIENT, LEVEL III Diagnosis: Candidiasis of skin and nail[ICD10: B37.2] Светлана Barron MD, [facility] CPT-4: 19458 11/13/2017 ([id number]) 26265 EST. PATIENT, LEVEL III Diagnosis: Lymphedema, not elsewhere classified[ICD10: I89.0] Diagnosis: Low back pain[ICD10: M54.5] Diagnosis: Localized edema[ICD10: R60.0] Alexandria Barron MD, [facility] CPT- 4: 87764 11/06/2017 ([id number]) Miscellaneous no charge Diagnosis: Localized edema[ICD10: R60.0] Diagnosis: Cellulitis of right lower limb[ICD10: L03.115] Diagnosis: Cellulitis of left lower limb[ICD10: L03.116] Светлана Barron MD, [facility] CPT-4: 98961 11/03/2017 [id number] EST. PATIENT, LEVEL III Diagnosis: Cellulitis of left lower limb[ICD10: L03.116] Diagnosis: Localized edema[ICD10: R60.0] Светлана Barron MD, [facility] CPT-4 : 53624 10/29/2017 ([id number]) 41102 EST. PATIENT, LEVEL IV Diagnosis: Essential (primary) hypertension[ICD10: I10] Diagnosis: Atrophy of thyroid (acquired)[ICD10: E03.4] Diagnosis: Pain in left knee[ICD10: M25.562] Diagnosis: Stiffness of left hand, not elsewhere classified[ICD10: M25.642] Diagnosis: Stiffness of right hand, not elsewhere classified[ICD10: M25.641] Alexandria Barron MD, [facility] CPT-4: 71388 09/04/2017 ([id number]) 28588 EST. PATIENT, LEVEL III Diagnosis: Other viral warts[ICD10: B07.8] Diagnosis: Other skin changes[ICD10: R23.8] Alexandria Barron MD, [facility] CPT-4: 78877 08/08/2017 ([id number]) 48098 EST. PATIENT, LEVEL IV Diagnosis: Essential (primary) hypertension[ICD10: I10] Diagnosis: Atrophy of thyroid (acquired)[ICD10: E03.4] Diagnosis: Low back pain[ICD10: M54.5] Alexandria Barron MD, [facility] CPT- 4: 25668 05/29/2017 ([id number]) 31645 EST. PATIENT, LEVEL IV Diagnosis: Essential (primary) hypertension[ICD10: I10] Diagnosis: Atrophy of thyroid (acquired)[ICD10: E03.4] Diagnosis: Encounter for immunization[ICD10: Z23] Diagnosis: Sick sinus syndrome[ICD10: I49.5] Alexandria Barron MD, [facility] CPT-4: 74944 04/16/2017 ([id number]) Miscellaneous no charge Diagnosis: Cellulitis of left lower limb[ICD10: L03.116] Светлана Barron MD, [facility] CPT-4: 81534 02/24/2017 82635 EST. PATIENT, LEVEL III Diagnosis: Cellulitis of left lower limb[ICD10: L03.116] Diagnosis: Cellulitis of right lower limb[ICD10: L03.115] Светлана Barron MD, [facility] CPT-4: 68016 02/10/2017 ([id number]) 43121 EST. PATIENT, LEVEL IV Diagnosis: Essential (primary) hypertension[ICD10: I10] Diagnosis: Other abnormal glucose[ICD10: R73.09] Diagnosis: Localized edema[ICD10: R60.0] Alexandria Barron MD, [facility] CPT- 4: 26276 01/21/2017 09511 EST. PATIENT, LEVEL IV Diagnosis: Essential (primary) hypertension[ICD10: I10] Diagnosis: Pain in left knee[ICD10: M25.562] Diagnosis: Atrophy of thyroid (acquired)[ICD10: E03.4] Alexandria Barron MD, [facility] CPT-4: 87326 12/18/2016 ([id number]) 93753 EST. PATIENT, LEVEL IV Diagnosis: Essential (primary) hypertension[ICD10: I10] Diagnosis: Pain in left knee[ICD10: M25.562] Diagnosis: Other instability, left knee[ICD10: M25.362] Diagnosis: Other chronic pain[ICD10: G89.29] Alexandria Barron MD, [facility] CPT-4: 73320 08/26/2016 ([id number]) 23278 EST. PATIENT, LEVEL III Diagnosis: Localized edema[ICD10: R60.0] Sandra Barron MD, [facility] CPT-4: 78216 02/27/2016 ([id number]) Miscellaneous no charge Diagnosis: Lymphedema, not elsewhere classified[ICD10: I89.0] Sandra Barron MD, [facility] CPT-4: 93714 02/20/2016 ([id number]) 24309 EST. PATIENT, LEVEL III Diagnosis: Contusion of left lower leg, subsequent encounter[ICD10: S80.12XD] Diagnosis: Abrasion of scalp, subsequent encounter[ICD10: S00.01XD] Diagnosis: Laceration without foreign body of left upper arm, subsequent encounter[ICD10: S41.112D] Diagnosis: Localized edema[ICD10: R60.0] Sandra Barron MD, [facility] CPT-4: 22818 02/19/2016 ([id number]) Miscellaneous no charge Diagnosis: Laceration without foreign body of left upper arm, subsequent encounter[ICD10: S41.112D] Diagnosis: Abrasion of scalp, subsequent encounter[ICD10: S00.01XD] Sandra Barron MD , [facility] CPT-4: 64635 02/12/2016 ([id number]) 24126 EST. PATIENT, LEVEL IV Diagnosis: Contusion of left lower leg, initial encounter[ICD10: S80.12XA] Diagnosis: Abrasion of scalp, initial encounter[ICD10: S00.01XA] Diagnosis: Laceration without foreign body of left upper arm, initial encounter[ ICD10: S41.112A] Diagnosis: Localized edema[ICD10: R60.0] Diagnosis: Hypothyroidism, unspecified[ICD10: E03.9] Diagnosis: Essential (primary) hypertension[ICD10: I10] Alexandria Barron MD, [facility] CPT-4: 57884 02/08/2016 ([id number]) 72479 EST. PATIENT, LEVEL IV Diagnosis: Cough[ICD10: R05] Diagnosis: Low back pain[ICD10: M54.5] Diagnosis: Allergic rhinitis due to pollen[ICD10: J30.1] Diagnosis: Acute upper respiratory infection, unspecified[ICD10: J06.9] Diagnosis: Acute bronchitis, unspecified[ICD10: J20.9] Sandra Barron MD, [facility] CPT-4: 41731 11/16/2015 ([id number]) 30537 EST. PATIENT, LEVEL IV Diagnosis: Hypothyroidism, unspecified[ICD10: E03.9] Diagnosis: Lymphedema, not elsewhere classified[ICD10: I89.0] Alexandria Barron MD, [facility] CPT-4: 77678 07/18/2015 70006 EST. PATIENT, LEVEL IV Diagnosis: Contusion of left lower leg, subsequent encounter[ICD10: S80.12XD] Diagnosis: Cellulitis of left lower limb[ICD10: L03.116] Светлана Barron MD, [facility] CPT-4: 37317 06/27/2015 01539 EST. PATIENT, LEVEL III Diagnosis: Contusion of left lower leg, initial encounter[ICD10: S80.12XA] Diagnosis: Cellulitis of left lower limb[ICD10: L03.116] Светлана Barron MD, [facility] CPT-4: 83763 06/19/2015 ([id number]) 24881 EST. 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 CPT-4: 84870 04/03/2015 ([id number]) 85315 EST. PATIENT, LEVEL III Diagnosis: Rosacea, acne[ICD9: 695.3] Diagnosis: Lymphedema[ICD9: 457.1] Sandra Barron MD, [facility] CPT-4: 68202 02/27/2015 ([id number]) 97669 EST. PATIENT, LEVEL III Diagnosis: Right leg swelling[ICD9: 729.81] Alexandria Barron MD, [facility] CPT-4: 08693 01/26/2015 ([id number]) 25588 EST. PATIENT, LEVEL III Diagnosis: CELLULITIS OF LEG[ICD9: 682.6] Mray Ann Barron MD, [facility] CPT-4 : 70312 01/16/2015 ([id number]) OFFICE VISIT, NEW - LEVEL 4 Diagnosis: Back pain[ICD9: 724.5] Diagnosis: Lymphedema[ICD9: 457.1] Diagnosis: Sacroiliitis[ICD9: 720.2] Diagnosis: Chronic pain[ICD9: 338.29] Diagnosis: HYPOTHYROIDISM[ICD9: 244.9] Diagnosis: Dysphagia[ICD9: 787.20] Alexandria Barron MD, [facility] CPT-4: 31941 12/05/2014 Plan of Care Planned Activity Notes [...] while seated. 07/07/2018 App[facility]ment: [facility] ([facility] min[facility] Moderate 07/07/2018 Patient Education: Patient [...] peripheral edema. 06/22/2018 Appointment: Alexandria Barron WPtel: [phone] [facility] (15 min) Moderate 06/22/2018 Patient Education: Patient Medication Summary Completed 06/22/2018 Appointment: Alexandria Barron WPtel: [address] [facility] (15 min) Moderate 05/27/2018 Visit Plan: Hypertension [...] of over-medication. 05/25/2018 Appointment: Alexandria Barron WPtel: [phone] [facility] (15 min) Moderate 05/25/2018 Patient Education: Patient Medication Summary Completed 05/25/2018 Patient Education: Back Pain Completed 05/25/2018 Appointment: Светлана Garcia WPtel: [address] [facility] (30 min) Complex [...] in clinic. 04/23/2018 Appointment: Alexandria Barron [facility]Ptel: [facility] ([facility] min) Moderate 04/23/2018 Patient Education: [...] pt request. 04/01/2018 Appointment: Alexandria Barron WPtel: [facility] (15 min) Moderate 04/01/2018 Patient Education: Patient [...] goes well. 03/18/2018 Appointment: Alexandria Barron WPtel: [phone] [facility] (15 min) Moderate 03/18/2018 Patient Education: Patient [...] on buttock. 03/09/2018 Appointment: Alexandria Barron WPtel: [facility] (15 min) Moderate 03/09/2018 Patient Education: Patient [...] her report. 02/12/2018 Appointment: Alexandria Barron WPtel: [facility] (15 min) Moderate 02/12/2018 Patient Education: Patient Medication Summary Completed 02/12/2018 Visit Plan: Bronchitis- Pt advised to increase fluids, vitamin C. Discussed natural and expected course of this diagnosis and need to alert me if symptoms do not follow expected course, or if any worse. RX sent to patient's pharmacy. 12/26/2017 Appointment: Sandra Mcdonald WPtel: [phone] [place] (15 min) [...] seated. 12/04/2017 Appointment: Alexandria Barron WPtel: [phone] [facility] (30 min) Complex 12/04/2017 Patient Education: Patient [...] WPtel: [phone] [facility] (30 min) Complex 11/06/2017 Patient Education: Patient [...] edema. 10/29/2017 Appointment: Светлана Garcia WPtel: [phone] [facility] (15 min) Moderate 10/29/2017 Patient Education: Patient [...] pennsaid sample 09/04/2017 Appointment: Alexandria Barron WPtel: [phone] [facility] (15 min) Moderate 09/04/2017 Patient Education: Patient Medication Summary Completed 09/04/2017 App[facility]ment: [phone] ([facility] min) Moderate 08/18/2017 Visit Plan: Skin lesion on face - lesion removed with scalpel and dressed with medihoney, pt to RTC in 10 days for treatment of the lesion if not fully resolved. 08/08/2017 Appointment: Alexandria Bar[phone] (30 min) Complex 08/08/2017 Patient Education: [...] medication. 05/29/2017 Appointment: Alexandria [phone] (15 min) Moderate 05/29/2017 Patient Education: Patient Medication Summary Completed 05/29/2017 Appointment: Alexandria Barron WPtel: [address] [place], [place] [id number] (15 min) Moderate 04/30/2017 Referral: Alberta Wilks [address] [place], [place] [phone] Patient informed. Referral info faxed. Completed [...] of control. 04/16/2017 Appointment: Alexandria Barron WPtel: [facility] ([facility] min) Moderate 04/16/2017 Patient Education: Patient Medication Summary Completed 04/16/2017 Care Plan: Referral Order SNOMED-CT : [id number] Pending 04/16/2017 Visit Plan: Wound healed - no further treatment at this time. 02/24/2017 Appointment: Nurse Visit 02/24/2017 Patient Education: Patient Medication Summary Completed 02/24/2017 Appointment: Nurse Visit 02/18/2017 Appointment: Светлана [phone] (30 min) Complex 02/14/2017 Visit Plan: Cellulitis - The patient was instructed in appropriate wound care. The patient was instructed to use the antibiotic as per RX. The patient is to call for any change in symptoms, increase in size of the lesion, increase in pain, worsening redness, warmth, discharge. 02/10/2017 Appointment: Светлана Garcia [facility]el[phone] (30 min) Complex 02/10/2017 Patient Education: [...] intake. 01/21/2017 Appointment: Alexandria Bar[phone] [facility] (15 min) Moderate 01/21/2017 Patient Education: [...] improving. 12/18/2016 Appointment: Alexandria Bar[phone] [facility] (15 min) Moderate 12/18/2016 Patient Education: [...] to specialist 08/26/2016 Appointment: Alexandria Barron WPtel: [phone] [facility] (15 min) Moderate 08/26/2016 Patient Education: Patient Medication Summary Completed 08/26/2016 Care Plan: Referral Order SNOMED-CT : [id number] Pending 08/26/2016 Appointment: Sandra Mcdonald WPtel: [phone] (30 min) Complex [...] peripheral edema. 02/27/2016 Appointment: Sandra Mcdonald WPtel: [phone] (30 min) Complex 02/27/2016 Patient Education: Patient Medication Summary Completed 02/27/2016 Appointment: Nurse Visit 02/20/2016 Patient Education: Patient Medication Summary Completed 02/20/2016 Visit Plan: Abrasion of scalp-healing well-continue wound care as directed Laceration left arm-healing well-continue wound care-may leave open to air Contusion of left zkq-jxssxikra-xmuptcwz to monitor Edema-elevate legs-follow up tomorrow for quick check of swelling 02/19/2016 Appointment: Sandra Mcdonald WPtel: [phone] [place] (15 min) [...] edema. 02/08/2016 Appointment: Alexandria Barron [facility]Ptel: [phone] [facility] [place] (15 min) Moderate 02/08/2016 Patient [...] of swelling. 07/18/2015 Appointment: Alexandria Bar[phone] (15 min) Moderate 07/18/2015 Patient Education: [...] improving. 04/03/2015 Appointment: Alexandria Bar[phone] (15 min) Moderate 04/03/2015 Patient Education: Patient Medication Summary Completed 04/03/2015 Visit Plan: Rosacea-continue finacea as directed-add metronidazole cream twice daily-call if symptoms do not improve or if any worse. Sxvkgspsjn-vvbgaki-cwwiihtt with wraps-no change in treatment 02/27/2015 Appointment: [...] for EGD. 12/05/2014 Appointment: Alexandria Barron [facility]Ptel[phone] [place] ([place] New Patient 12/05/2014 Patient Education: Patient Medication Summary Completed 12/05/2014 Patient Education: Hypertension Completed 12/05/2014 Referral: Jose A Rios Referral Appointment Requested Referral: Alberta Wilks [address] [place], [place] [address] [place] Referral Appointment Requested Referral: [facility] [place] [phone] [place] Referral Appointment Requested Referral: Jayro Wetzel WPtel: Referral Appointment Requested Instructions Comment . Wound healed - no further treatment at this time. . Rosacea-continue finacea as directed-add metronidazole cream twice daily-call if symptoms do not improve or if any worse. Midgufkmes-nideixt-lvumjart with wraps-no change in treatment Pneumovax - pneumonia shot - you had [...] as possible. Patient verbalized understanding of plan. get labs one week before next appointment [...] and understands the consequences of over-medication. . Cellulitis - continue with oral antibiotics [...] further attempt to reduce peripheral edema. . Weeping edema bilateral lower legs - [...] leave open to air Contusion of left axr-ogyepruao-bmqghiki to monitor Edema-elevate legs-follow up tomorrow for [...] on buttock - Calmoseptine on buttock. . Left lower leg injury - The [...] in pain, worsening redness, warmth, discharge. . Bradycardia - Referral to Dr. Wilks. [...] months based on previous levels of control. take lasix 40mg daily x 1 week [...] - stop oxygen per pt request. . Dressing change-return tomorrow . Skin lesion on face - lesion removed with scalpel and dressed with maycol pt to RTC in 10 days for treatment of the lesion if not fully resolved. . Hypertension - well controlled - continue [...]
[2018-11-23] MEDS ORDERED: LORA10TA7 PO (16:09)
[2018-11-23] MEDS ORDERED: PRD20T PO (16:09)
--- OUTSIDE RECORDS SUMMARY | 2018-11-23 16:10 | XMS REPORT | CCD ---
Author Author [facility] Organization [facility] Address [address] [place] [address] Phone Care Team Providers Care Animal Attendant Name Role Phone PP Unavailable CCM Unavailable Summary Purpose Interface Exchange Insurance Providers Payer name Policy type / Coverage type Covered constitution party ID Effective Begin Date Effective End Date WPS Medicare Part B Medicare Part B [id number] Unknown Unknown [facility] Medicare Part B [id number] Unknown Unknown Family history Brother Diagnosis Age At Onset Diabetes Unknown Skin cancer Unknown Father Diagnosis Age At Onset Heart disease Unknown Mother Diagnosis Age At Onset advanced age Unknown Hypothyroid Unknown Social History Social History Element Codes Description Effective Dates Marital status Unknown Single 12/05/2014 Number of children Unknown 0 12/05/2014 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[address]: 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 Quit 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 quit 20-25 [...] Start Date Stop Date Status Fill Instructions nadolol 20 mg tablet RxNorm: 662062 1/2 Tablet(s) PO daily No Stop Date Active oxycodone 5 mg tablet RxNorm: 6175610 2 Tablet(s) PO BID 201707/17/2018 Active nadolol 20 mg tablet RxNorm: 159628 1 Tablet(s) TAKE 1 TABLET BY MOUTH EVERY DAY 05/25/2018 06/21/2018 Inactive Generic For:*CORGARD 20 MG TABLET 05/21/2018 10:10: 43 AM spironolactone 50 mg tablet RxNorm: 609957 TAKE 1 TABLET BY MOUTH EVERY DAY 05/21/2018 06/03/2018 Inactive Generic For:ALDACTONE 50MG 05/21/2018 10:10:31 AM Ocuvite tablet RxNorm : 1 Tablet(s) PO BID 05/21/2018 06/03/2018 Inactive pramipexole 0.25 mg tablet RxNorm: 679158 TAKE 1 TABLET BY MOUTH TWICE DAILY 05/21/2018 06/03/2018 Inactive Generic For:MIRAPEX 0.25MG TAB 05/21/2018 10:10:48 AM levothyroxine 88 mcg tablet RxNorm: 825527 TAKE 1 TABLET BY MOUTH EVERY DAY WITH A 100MCG TABLET 05/21/2018 06/03/2018 Inactive Generic For:*SYNTHROID 0.088MG TAB 05/21/2018 10:10:11 AM levothyroxine 100 mcg tablet RxNorm: 428141 TAKE 1 TABLET BY MOUTH EVERY DAY , TAKE WITH AN 88 MCG TABLET 05/21/2018 Inactive Generic For:*SYNTHROID 100 MCG TABLET 05/21/2018 10:10:04 AM Vitamin D3 2,000 unit capsule RxNorm: 214741 1 Capsule(s) PO daily 05/21/2018 No Stop Date Active nadolol 20 mg tablet RxNorm: 834543 TAKE 1/2 TABLET BY MOUTH EVERY DAY 05/21/2018 05/24/2018 Inactive Generic For:*CORGARD 20 MG TABLET 05/21/2018 10:10:43 AM oxycodone 5 mg tablet RxNorm: 4420268 1 Tablet(s) PO QID as needed 05/15/2018 06/13/2018 Inactive pramipexole 0.25 mg tablet RxNorm: 189278 1 Tablet(s) PO BID 05/20/2018 Inactive Requip 0.25 mg tablet RxNorm: 709981 1 Tablet(s) PO BID 201705/03/2018 Inactive Lasix 40 mg tablet RxNorm: 186491 1 Tablet(s) PO daily as needed edema if more than 3 pounds weight loss in 48 hours 04/23/2018 08/20/2018 Active potassium chloride ER 10 mEq tablet,extended release RxNorm: 706625 1 Tablet(s) PO daily as needed when taking lasix 04/23/2018 08/20/2018 Active potassium chloride ER 10 mEq tablet,extended release RxNorm: 276327 1 Tablet(s) PO daily as needed when taking lasix 04/01/2018 04/22/2018 Inactive Lasix 40 mg tablet RxNorm: 392878 1 Tablet(s) PO daily as needed edema 04/01/2018 04/22/2018 Inactive oxycodone 5 mg tablet RxNorm: 8761354 1 Tablet(s) PO QID as needed 03/18/2018 04/16/2018 Inactive levothyroxine 88 mcg tablet RxNorm: 729683 1 Tablet(s) PO daily . Take with 100 mcg tablet. 02/19/2018 05/20/2018 Inactive spironolactone 50 mg tablet RxNorm: 410582 Tablet(s) TAKE 1 TABLET BY MOUTH DAILY 02/19/2018 05/20/2018 Inactive levothyroxine 100 mcg tablet RxNorm: 147483 1 Tablet(s) PO daily . Take with 88 mcg tablet 02/19/2018 02/18/2018 Inactive levothyroxine 88 mcg tablet RxNorm: 541804 1 Tablet(s) PO daily . Take with 100 mcg tablet. 02/19/2018 02/18/2018 Inactive levothyroxine 100 mcg tablet RxNorm: 588369 1 Tablet(s) PO daily . Take with 88 mcg tablet 02/19/2018 05/20/2018 Inactive spironolactone 25 mg tablet RxNorm: 112604 1 Tablet(s) PO daily 02/12/2018 02/18/2018 Inactive pt will let you know when she is ready for the refill oxycodone 10 mg tablet RxNorm: 1864982 1 Tablet(s) PO TID as needed 02/12/2018 03/13/2018 Inactive oxycodone 10 mg tablet RxNorm: 6867408 1 Tablet(s) PO Q6 as needed 01/22/2018 02/11/2018 Inactive spironolactone 50 mg tablet RxNorm: 771992 TAKE 1 TABLET BY MOUTH DAILY 01/05/2018 02/11/2018 Inactive Generic For:ALDACTONE 50MG 01/05/2018 8:27:46 AM Kenalog 40 mg/mL suspension for injection RxNorm: 0459213 1 Milliliter(s) Inj 12/26/2017 12/26/2017 Inactive Zithromax Z-Fransisco 250 mg tablet RxNorm: 452336 1 Tablet(s) PO UD 12/26/2017 12/30/2017 Inactive oxycodone 10 mg tablet RxNorm: 4186042 1 Tablet(s) PO Q6 as needed 11/25/2017 12/24/2017 Inactive nystatin 100,000 unit/gram topical powder RxNorm: 660220 1 Application TOP BID 11/13/2017 No Stop Date Active nystatin 100,000 unit/gram topical cream RxNorm: 008891 Gram(s) TOP QID 11/12/2017 11/18/2017 Inactive nystatin 100,000 unit/gram topical cream RxNorm: 718395 Gram(s) TOP QID 11/12/2017 11/11/2017 Inactive Lasix 20 mg tablet RxNorm: 014917 1 Tablet(s) PO daily as needed edema 11/03/2017 11/07/2017 Inactive potassium chloride ER 10 mEq tablet,extended release RxNorm: 501204 1 Tablet(s) PO daily while on the lasix 11/03/201701/2018 Inactive Keflex 500 mg capsule RxNorm: 970043 1 Capsule(s) PO TID 201711/07/2017 Inactive potassium chloride ER 10 mEq tablet,extended release RxNorm: 913791 1 Tablet(s) PO daily while on the lasix 10/29/2017 Inactive Lasix 20 mg tablet RxNorm: 074750 1 Tablet(s) PO daily as needed edema 10/29/2017 10/31/2017 Inactive oxycodone 10 mg tablet RxNorm: 8512004 1 Tablet(s) PO Q6 as needed 09/29/2017 10/28/2017 Inactive levothyroxine 200 mcg tablet RxNorm: 305686 TAKE 1 TABLET BY MOUTH DAILY 09/01/2017 02/18/2018 Inactive Generic For:*SYNTHROID 0.2MG TAB 09/01/2017 8:36:32 AM Bactrim DS 800 mg-160 mg tablet RxNorm: 854985 1 Tablet(s) PO BID 08/07/2017 08/16/2017 Inactive Bactrim DS 800 mg-160 mg tablet RxNorm: 256526 1 Tablet(s) PO BID 08/07/2017 08/06/2017 Inactive oxycodone 10 mg tablet RxNorm: 1935253 1 Tablet(s) PO Q6 as needed 07/31/2017 08/29/2017 Inactive spironolactone 50 mg tablet RxNorm: 847046 1 Tablet(s) PO daily 06/30/2017 12/26/2017 Inactive Not due for a refill until next month nadolol 20 mg tablet RxNorm: 476482 1 Tablet(s) PO daily 201611/28/2017 Inactive nadolol 20 mg tablet RxNorm: 074044 1/2 Tablet(s) PO daily 11/28/2017 Inactive nadolol 20 mg tablet RxNorm: 194626 1/2 Tablet(s) PO daily 05/21/2017 Inactive oxycodone 10 mg tablet RxNorm: 6927991 1 Tablet(s) PO Q6 as needed 04/01/2017 04/30/2017 Inactive levothyroxine 200 mcg tablet RxNorm: 982584 TAKE 1 TABLET BY MOUTH DAILY 03/10/2017 08/31/2017 Inactive Generic For:*SYNTHROID 0.2MG TAB 03/10/2017 8:49:05 AM potassium chloride ER 10 mEq tablet,extended release RxNorm: 497834 1 Tablet(s) PO daily while on the lasix 02/18/2017 Inactive Lasix 20 mg tablet RxNorm: 612628 1 Tablet(s) PO daily as needed edema 02/18/2017 02/20/2017 Inactive Keflex 500 mg capsule RxNorm: 810882 1 Capsule(s) PO TID 201602/16/2017 Inactive Lasix 20 mg tablet RxNorm: 953586 1 Tablet(s) PO daily 201602/15/2017 Inactive potassium chloride ER 10 mEq tablet,extended release RxNorm: 872668 1 Tablet(s) PO daily while on the lasix 02/14/2017 Inactive Lasix 20 mg tablet RxNorm: 886029 1 Tablet(s) PO daily 201602/13/2017 Inactive potassium chloride ER 10 mEq tablet,extended release RxNorm: 258942 1 Tablet(s) PO daily while on the lasix 02/14/2017 Inactive oxycodone 10 mg tablet RxNorm: 9262216 1 Tablet(s) PO Q6 as needed 02/05/2017 03/06/2017 Inactive minocycline 50 mg tablet RxNorm: 274408 1 Tablet(s) PO Q72H 12/03/2017 Inactive spironolactone 50 mg tablet RxNorm: 151050 1 Tablet(s) PO daily 12/18/2016 06/15/2017 Inactive Not due for a refill until next month oxycodone 10 mg tablet RxNorm: 3296187 1 Tablet(s) PO Q6 as needed 12/05/2016 01/03/2017 Inactive nadolol 20 mg tablet RxNorm: 387519 1 Tablet(s) PO daily 201604/15/2017 Inactive oxycodone 10 mg tablet RxNorm: 4944514 1 Tablet(s) PO Q6 as needed 09/30/2016 10/29/2016 Inactive levothyroxine 200 mcg tablet RxNorm: 167815 TAKE 1 TABLET BY MOUTH DAILY 09/12/2016 03/09/2017 Inactive Generic For:*SYNTHROID 0.2MG TAB 09/12/2016 8:41:27 AM oxycodone 10 mg tablet RxNorm: 5827522 1 Tablet(s) PO Q6 as needed 08/06/2016 09/04/2016 Inactive oxycodone 10 mg tablet RxNorm: 4018510 1 Tablet(s) PO Q6 as needed 06/10/2016 07/09/2016 Inactive oxycodone 10 mg tablet RxNorm: 9190633 1 Tablet(s) PO Q6 as needed 04/05/2016 05/04/2016 Inactive levothyroxine 200 mcg tablet RxNorm: 692993 1 Tablet(s) PO daily 03/14/2016 09/09/2016 Inactive oxycodone 10 mg tablet RxNorm: 9902252 1 Tablet(s) PO Q6 as needed 02/08/2016 03/08/2016 Inactive Kenalog 40 mg/mL suspension for injection RxNorm: 3995987 Milliliter(s) Inj 11/16/2015 11/16/2015 Inactive Zithromax Z-Fransisco 250 mg tablet RxNorm: 833431 1 Tablet(s) PO UD 11/16/2015 11/20/2015 Inactive zpack, take probiotic while on abx oxycodone 10 mg tablet RxNorm: 5400288 1 Tablet(s) PO Q6 as needed 11/16/2015 02/07/2016 Inactive ceftriaxone 500 mg solution for injection RxNorm: 3987808 Inj 11/16/2015 11/16/2015 Inactive oxycodone 10 mg tablet RxNorm: 7722999 1 Tablet(s) PO Q6 as needed 10/11/2015 11/15/2015 Inactive levothyroxine 200 mcg tablet RxNorm: 150889 1 Tablet(s) PO daily 09/14/2015 03/11/2016 Inactive oxycodone 10 mg tablet RxNorm: 2401589 1 Tablet(s) PO Q6 as needed 08/10/2015 10/10/2015 Inactive Keflex 500 mg capsule RxNorm: 078246 1 Capsule(s) PO TID 201407/03/2015 Inactive Keflex 500 mg capsule RxNorm: 385437 1 Capsule(s) PO TID 201406/25/2015 Inactive oxycodone 10 mg tablet RxNorm: 2508361 1 Tablet(s) PO Q6 as needed 04/03/2015 08/09/2015 Inactive oxycodone 10 mg tablet RxNorm: 4609122 1 Tablet(s) PO Q6 as needed 02/14/2015 04/02/2015 Inactive Keflex 500 mg capsule RxNorm: 825755 1 Capsule(s) PO TID 201401/22/2015 Inactive Culturelle 10 billion cell capsule RxNorm: 171060 1 Capsule(s) PO daily 01/16/2015 02/14/2015 Inactive Dulcolax Stool Softener (docusate) 100 mg capsule RxNorm: 2492691 1 Capsule(s) PO daily 12/05/2014 02/11/2018 Inactive [SAVINGS FOR NON-COVERED DRUGS -- BIN:[id number], PCN: [id number], Group: [id number], ID# [id number], Questions: . THIS IS NOT INSURANCE.] Restasis 0.05 % eye drops in a dropperette RxNorm: 218795 1 Drop(s) OPH BID No Start Date Active Vitamin D3 2,000 unit capsule RxNorm: 716992 1 Capsule(s) PO daily No Start Date 05/20/2018 Inactive minocycline 50 mg tablet RxNorm: 821884 1 Tablet(s) PO QHS No Start Date 01/20/2017 Inactive nadolol 20 mg tablet RxNorm: 615877 1 Tablet(s) PO daily No Start Date 11/05/2016 Inactive nadolol 20 mg tablet RxNorm: 383620 1 Tablet(s) PO daily No Start Date 11/05/2016 Inactive Ocuvite tablet RxNorm : 1 Tablet(s) PO BID No Start Date 05/20/2018 Inactive oxycodone 10 mg tablet RxNorm: 7287213 1 Tablet(s) PO Q6 as needed No Start Date 02/13/2015 Inactive Dulcolax Stool Softener (docusate) 100 mg capsule RxNorm: 1365146 1 Capsule(s) PO BID No Start Date 12/04/2014 Inactive Multivitamin 50 Plus tablet RxNorm: 1 Tablet(s) PO QAM No Start Date 02/11/2018 Inactive Finacea 15 % topical gel RxNorm: 6760001 TOP No Start Date 05/24/2018 Inactive Synthroid 200mcg Oral RxNorm: oral No Start Date 09/13/2015 Inactive spironolactone 50 mg tablet RxNorm: 227961 1 Tablet(s) PO daily No Start Date 12/17/2016 Inactive spironolactone 50 mg tablet RxNorm: 336706 1 Tablet(s) PO daily No Start Date 02/11/2018 Inactive Medication Administered Medication Codes Instructions Start Date Status Kenalog 40 mg/mL suspension for injection RxNorm: 3021432 1Milliliter 12/26/2017 No longer Active ceftriaxone 500 mg solution for injection RxNorm: 8783590 11/16/2015 No longer Active Kenalog 40 mg/mL suspension for injection RxNorm: 2464168 Milliliter 11/16/2015 No longer Active Immunizations Vaccine [...] Item Item Code Result Date Free T4 Hoi702 FREE T4 1.92 ng/dL 04/24/2018 Tsh Ord6 [...] 31.1 pg 04/24/2018 Cbc With Differential Ord2 [place]% 13.0 % 04/24/2018 Cbc With Differential Ord2 [...] 1.00 K/ul 04/24/2018 Cbc With Differential Ord2 [place] ABS# 0.4 K/ul 04/24/2018 Cbc With Differential Ord2 Eos ABS# 0.0 K/ul 04/24/2018 Cbc With Differential Ord2 Baso ABS# 0.0 K/ul 04/24/2018 Comp Metabolic Tzo170 NA 138 mEq/L 04/24/2018 Comp Metabolic Kpx494 K 3.9 mEq/L 04/24/2018 Comp Metabolic Aic149 CL 97 mEq/L 04/24/2018 Comp Metabolic Yyz020 CO2 32.0 mEq/L 04/24/2018 Comp Metabolic Lrz946 ANION GAP 13 04/24/2018 Comp Metabolic Bfe099 GLUCOSE 194 mg/dL 04/24/2018 Comp Metabolic Tha701 Creat 0.8 mg/dL 04/24/2018 Comp Metabolic Enj412 eGFR 70 ml/min/1.73m2 04/24/2018 Comp Metabolic Kzx268 BUN 20 mg/dL 04/24/2018 Comp Metabolic Xnc761 B/C Ratio 24.1 Ratio 04/24/2018 Comp Metabolic Xmu564 CALCIUM 9.4 mg/dL 04/24/2018 Comp Metabolic Snb245 ALK PHOS 110 U/L 04/24/2018 Comp Metabolic Hhi784 AST(SGOT) 33 U/L 04/24/2018 Comp Metabolic Ono298 ALT(SGPT) 16 U/L 04/24/2018 Comp Metabolic Myk393 BILI T 1.8 mg/dL 04/24/2018 Comp Metabolic Fcx000 ALBUMIN 4.0 g/dL 04/24/2018 Comp Metabolic Srl395 TPRO 5.7 g/dL 04/24/2018 Comp Metabolic Mcx202 GLOB 1.7 g/dL 04/24/2018 Comp Metabolic Xuo102 A/G Ratio 2.3 Ratio 04/24/2018 Comp Metabolic Tjx257 Osmo 284 mOsmo 04/24/2018 Tsh Ord6 TSH (3rd IS) 0.07 uIU/mL 02/13/2018 Free T4 Etz302 FREE T4 1.85 ng/dL 02/13/2018 %Hba1C Ggm953 % HbA1c 36563-3 5.9 % 01/21/2017 %Hba1C Ytp090 Gluc Ave 123 mg/dL 01/21/2017 Comp Metabolic Vcy073 NA 136 mEq/L 01/21/2017 Comp Metabolic Txq002 K 4.3 mEq/L 01/21/2017 Comp Metabolic Sde547 CL 99 mEq/L 01/21/2017 Comp Metabolic Kgh768 CO2 30.0 mEq/L 01/21/2017 Comp Metabolic Urm931 ANION GAP 11 01/21/2017 Comp Metabolic Bwo475 GLUCOSE 234 mg/dL 01/21/2017 Comp Metabolic Svj759 Creat 0.5 mg/dL 01/21/2017 Comp Metabolic Mfh268 eGFR 115 ml/min/1.73m2 01/21/2017 Comp Metabolic Kii477 BUN 10 mg/dL 01/21/2017 Comp Metabolic Tkc892 B/C Ratio 18.5 Ratio 01/21/2017 Comp Metabolic Rdv062 CALCIUM 8.8 mg/dL 01/21/2017 Comp Metabolic Lbj578 ALK PHOS 74 U/L 01/21/2017 Comp Metabolic Cfx634 AST(SGOT) 28 U/L 01/21/2017 Comp Metabolic Vyc373 ALT(SGPT) 15 U/L 01/21/2017 Comp Metabolic Gif815 BILI T 1.1 mg/dL 01/21/2017 Comp Metabolic Gpj895 ALBUMIN 3.8 g/dL 01/21/2017 Comp Metabolic Kke800 TPRO 5.8 g/dL 01/21/2017 Comp Metabolic Msi658 GLOB 2.0 g/dL 01/21/2017 Comp Metabolic Qfz218 A/G Ratio 1.9 Ratio 01/21/2017 Comp Metabolic Kwb381 Osmo 279 mOsmo 01/21/2017 Tsh Ord6 hTSH II 0.80 uIU/mL 04/03/2015 Bili D Ord93 BILI D 0.1 mg/dL 04/03/2015 Bili D Ord93 BILI I 0.9 mg/dL 04/03/2015 Free T4 Qnl473 FREE T4 1.27 ng/dL 04/03/2015 Cbc With [...] Ord2 RDW 15.6 % 04/03/2015 Comp Metabolic Okx113 NA 136 mEq/L 04/03/2015 Comp Metabolic Iau041 K 4.3 mEq/L 04/03/2015 Comp Metabolic Abk315 CL 99 mEq/L 04/03/2015 Comp Metabolic Joh455 CO2 29.0 mEq/L 04/03/2015 Comp Metabolic Uhn192 ANION GAP 12 04/03/2015 Comp Metabolic Yay910 GLUCOSE 120 mg/dL 04/03/2015 Comp Metabolic Uku657 Creat 0.5 mg/dL 04/03/2015 Comp Metabolic Dqu730 eGFR 118 ml/min/1.73m2 04/03/2015 Comp Metabolic Hra272 BUN 11 mg/dL 04/03/2015 Comp Metabolic Lrb156 B/C Ratio 20.8 Ratio 04/03/2015 Comp Metabolic Snn256 CALCIUM 9.3 mg/dL 04/03/2015 Comp Metabolic Clv646 ALK PHOS 61 U/L 04/03/2015 Comp Metabolic Efp236 AST(SGOT) 28 U/L 04/03/2015 Comp Metabolic Zet440 ALT(SGPT) 16 U/L 04/03/2015 Comp Metabolic Auw279 BILI T 1.0 mg/dL 04/03/2015 Comp Metabolic Yrg769 ALBUMIN 4.1 g/dL 04/03/2015 Comp Metabolic Gef621 TPRO 6.1 g/dL 04/03/2015 Comp Metabolic Ddx496 GLOB 2.0 g/dL 04/03/2015 Comp Metabolic Ocl143 A/G Ratio 2.1 Ratio 04/03/2015 Comp Metabolic Jop980 Osmo 273 mOsmo 04/03/2015 Review of Systems [...] holosystolic 03/09/2018 None Full Exam - General 1995 Cardiovascular auscultation of heart Systolic murmur grade: [...] station 03/09/2018 None Full Exam - General 1995 Musculoskeletal head and neck Overall: cervical spine [...] intact 09/04/2017 None Full Exam - General 1995 Constitutional general appearance Development: well developed 08/08/2017 None Full Exam - General 1994 Constitutional general appearance Development: appears stated age 0108/08/2017 None Full Exam - General 1995 Constitutional general appearance Hygiene/Attention to Grooming: good hygiene 08/08/2017 None Full Exam - General 1995 Eyes conjunctiva /eyelids Overall: conjunctiva clear 08/08/2017 [...] FLU VACC PRSV FREE INC ANTIG CPT-4: 74702 04/23/2018 TRIAMCINOLONE ACET INJ NOS CPT-4: J3301 12/26/2017 ADMIN INFLUENZA VIRUS VAC CPT-4: G0008 04/16/2017 FLU VACC PRSV FREE INC ANTIG CPT-4: 20439 04/16/2017 TRIAMCINOLONE ACET INJ NOS CPT-4: J3301 [...] Code : 8480-6 BMI: 23.6 Code : 79112-8 Heart Rate 1 : 59 bpm Height: 5'1" Respiratory Rate: 18 bpm SpO2: 99% Temperature: 37.0 (C) / 98.6 (F ) Weight: 125 lbs 04/23/2018 Blood Pressure 2: 118/62 Code : 8480-6 BMI: 22.3 Code : 03147-3 Heart Rate 1 : 73 bpm Height: 5'1" SpO2: 97% Weight: 118 lbs 04/01/2018 Blood Pressure 1: 136/72 Code : 8480-6 BMI: 26.6 Code : 61661-9 Heart Rate 1 : 75 bpm Height: 5'1" SpO2: 98% Weight: 141 lbs 03/18/2018 Blood Pressure 1: 132/62 Code : 8480-6 Heart Rate 1: 61 bpm Height: 5'1" SpO2: 96% Weight: 03/09/2018 Blood Pressure 1: 122/60 Code : 8480-6 Heart Rate 1: 65 bpm Height: 5'1" SpO2: 98% Weight: 02/12/2018 Blood Pressure 1: 100/68 Code : 8480-6 BMI: 24.3 Code : 97674-7 Heart Rate 1 : 68 bpm Height: 5'1" SpO2: 96% Weight: 128 lbs 13 oz 12/26/2017 Blood Pressure 1: 126/68 Code : 8480-6 BMI: 26.7 Code : 62143-1 Heart Rate 1 : 66 bpm Height: 5'1" SpO2: 98% Temperature: 36.8 (C) / 98.2 (F) Weight: 141 lbs 8 oz 12/04/2017 Blood Pressure 1: 132/76 Code : 8480-6 BMI: 26.5 Code : 37812-2 Heart Rate 1 : 73 bpm Height: 5'1" SpO2: 96% Weight: 140 lbs 11/13/2017 Blood Pressure 1: 126/62 Code : 8480-6 Heart Rate 1: 69 bpm Height: 5'1" SpO2: 96% Weight: 11/06/2017 Blood Pressure 1: 142/84 Code : 8480-6 BMI: 25.7 Code : 06353-6 Heart Rate 1 : 78 bpm Height: 5'1" SpO2: 95% Temperature: 36.9 (C) / 98.5 (F) Weight: 136 lbs 10/29/2017 Blood Pressure 1: 132/68 Code : 8480-6 BMI: 26.8 Code : 22701-3 Heart Rate 1 : 70 bpm Height: 5'1" SpO2: 98% Weight: 142 lbs 09/04/2017 Blood Pressure 1: 132/74 Code : 8480-6 BMI: 25.9 Code : 87108-4 Heart Rate 1 : 68 bpm Height: 5'1" SpO2: 96% Weight: 137 lbs 08/08/2017 Blood Pressure 1: 118/72 Code : 8480-6 BMI: 26.6 Code : 78563-2 Heart Rate 1 : 68 bpm Height: 5'1" SpO2: 95% Weight: 141 lbs 05/29/2017 Blood Pressure 1: 142/78 Code : 8480-6 BMI: 26.3 Code : 91587-9 Heart Rate 1 : 65 bpm Height: 5'1" SpO2: 95% Weight: 139 lbs 04/16/2017 Blood Pressure 1: 136/62 Code : 8480-6 BMI: 27.4 Code : 94752-8 Heart Rate 1 : 38 bpm Height: 5'1" SpO2: 98% Weight: 145 lbs 02/10/2017 Blood Pressure 1: 124/70 Code : 8480-6 BMI: 27.4 Code : 55755-2 Heart Rate 1 : 70 bpm Height: 5'1" SpO2: 96% Weight: 145 lbs 01/21/2017 Blood Pressure 1: 120/70 Code : 8480-6 BMI: 27.2 Code : 51341-2 Heart Rate 1 : 65 bpm Height: 5'1" SpO2: 95% Weight: 144 lbs 12/18/2016 Blood Pressure 1: 122/74 Code : 8480-6 BMI: 27.4 Code : 77585-2 Heart Rate 1 : 66 bpm Height: 5'1" SpO2: 97% Weight: 145 lbs 08/26/2016 Blood Pressure 1: 110/64 Code : 8480-6 BMI: 28.0 Code : 71335-0 Heart Rate 1 : 67 bpm Height: 5'1" SpO2: 97% Weight: 148 lbs 02/27/2016 Blood Pressure 1: 126/74 Code : 8480-6 Heart Rate 1: 67 bpm Height: 5'1" SpO2: 97% 02/19/2016 Blood Pressure 1: 130/80 Code : 8480-6 BMI: 28.2 Code : 34782-8 Heart Rate 1 : 74 bpm Height: 5'1" SpO2: 96% Weight: 149 lbs 02/08/2016 Blood Pressure 1: 122/78 Code : 8480-6 BMI: 28.2 Code : 92737-2 Heart Rate 1 : 63 bpm Height: 5'1" SpO2: 96% Weight: 149 lbs 11/16/2015 Blood Pressure 1: 128/70 Code : 8480-6 BMI: 27.8 Code : 31126-4 Heart Rate 1 : 64 bpm Height: 5'1" SpO2: 97% Weight: 147 lbs 07/18/2015 Blood Pressure 1: 110/60 Code : 8480-6 BMI: 28.5 Code : 55751-8 Heart Rate 1 : 61 bpm Height: 5'1" SpO2: 97% Weight: 151 lbs 06/27/2015 Blood Pressure 1: 122/60 Code : 8480-6 BMI: 28.9 Code : 73951-0 Heart Rate 1 : 63 bpm Height: 5'1" SpO2: 95% Weight: 153 lbs 06/19/2015 Blood Pressure 1: 120/78 Code : 8480-6 Heart Rate 1: 68 bpm SpO2: 96% Weight: 154 lbs 04/03/2015 Blood Pressure 1: 128/68 Code : 8480-6 BMI: 29.1 Code : 18033-5 Heart Rate 1 : 70 bpm Height: 5'1" SpO2: 97% Weight: 154 lbs 02/27/2015 Blood Pressure 1: 122/84 Code : 8480-6 BMI: 29.5 Code : 06457-4 Heart Rate 1 : 67 bpm Height: 5'1" SpO2: 95% Weight: 156 lbs 01/26/2015 Blood Pressure 1: 132/70 Code : 8480-6 BMI: 30.2 Code : 50476-1 Heart Rate 1 : 76 bpm Height: 5'1" Weight: 160 lbs 01/16/2015 Blood Pressure 1: 140/70 Code : 8480-6 BMI: 30.0 Code : 26674-9 Heart Rate 1 : 78 bpm Height: 5'1" Respiratory Rate: 20 bpm Weight: 159 lbs 12/05/2014 Blood Pressure 1: 138/78 Code : 8480-6 BMI: 30.8 Code : 73477-8 Heart Rate 1 : 76 bpm Height: [...] ill contacts 07/07/2018 she is in a alf Triggers recumbent position 07/07/2018 None Hospital Follow [...] data Encounters Encounter Performer Location Codes Date ([id number]) [id number] EST. PATIENT, LEVEL IV Diagnosis: Essential (primary) hypertension[ICD10: I10] Diagnosis: Atrophy of thyroid (acquired)[ICD10: E03.4] Diagnosis: Lymphedema, not elsewhere classified[ICD10: I89.0] [facility] CPT-4: 00120 07/07/2018 ([id number]) 25839 EST. PATIENT, LEVEL IV Diagnosis: Essential (primary) hypertension[ICD10: I10] Diagnosis: Localized edema[ICD10: R60.0] [facility] CPT- 4: 53519 06/22/2018 ([id number]) 57226 EST. PATIENT, LEVEL IV Diagnosis: Atrophy of thyroid (acquired)[ICD10: E03.4] Diagnosis: Essential (primary) hypertension[ICD10: I10] Diagnosis: Other chronic pain[ICD10: G89.29] Diagnosis: Pain in left knee[ICD10: M25.562] Diagnosis: Low back pain[ICD10: M54.5] [facility] CPT- 4: 63594 05/25/2018 [id number]) [id number] EST. 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 PATIENT, LEVEL IV Diagnosis: Essential (primary) hypertension[ICD10: I10] Diagnosis: Low back pain[ICD10: M54.5] Diagnosis: Localized edema[ICD10: R60.0] Diagnosis: Other chronic pain[ICD10: G89.29] Diagnosis: Obstructive sleep apnea (adult) (pediatric)[ICD10: G47.33] [facility] MD , [facility] CPT-4: 95530 04/01/2018 ([id number]) 89253 EST. PATIENT, LEVEL IV Diagnosis: Essential (primary) hypertension[ICD10: I10] Diagnosis: Other chronic pain[ICD10: G89.29] Diagnosis: Unsteadiness on feet[ICD10: R26.81] [facility], [facility] CPT-4: 06520 03/18/2018 [id number]) [id number] EST. PATIENT, LEVEL IV Diagnosis: Low back pain[ICD10: M54.5] Diagnosis: Localized edema[ICD10: R60.0] Diagnosis: Essential (primary) hypertension[ICD10: I10] Diagnosis: Other chronic pain[ICD10: G89.29] Diagnosis: Pressure ulcer of left buttock, stage 1[ICD10: L89.321] Diagnosis: Obstructive sleep apnea (adult) (pediatric)[ICD10: G47.33] [facility] MD , [facility] CPT-4: 61870 03/09/2018 ([id number]) [id number] EST. PATIENT, LEVEL IV Diagnosis: Atrophy of thyroid (acquired)[ICD10: E03.4] Diagnosis: Essential (primary) hypertension[ICD10: I10] Diagnosis: Localized edema[ICD10: R60.0] Diagnosis: Other chronic pain[ICD10: G89.29] Alexandria Barron MD, [facility] CPT-4: 02664 02/12/2018 ([id number]) [id number] EST. PATIENT, LEVEL III Diagnosis: Cough[ICD10: R05] Diagnosis: Acute bronchitis, unspecified[ICD10: J20.9] Sandra Barron MD, [facility] CPT-4: 99186 12/26/2017 ([id number]) [id number] EST. PATIENT, LEVEL IV Diagnosis: Essential (primary) hypertension[ICD10: I10] Diagnosis: Other specified noninfective disorders of lymphatic vessels and lymph nodes[ICD10: I89.8] Diagnosis: Atrophy of thyroid (acquired)[ICD10: E03.4] Alexandria Barron MD, [facility] CPT-4: 95918 12/04/2017 [id number] EST. PATIENT, LEVEL III Diagnosis: Candidiasis of skin and nail[ICD10: B37.2] Светлана Barron MD, [facility] CPT-4: 83581 11/13/2017 ([id number]) 63250 EST. PATIENT, LEVEL III Diagnosis: Lymphedema, not elsewhere classified[ICD10: I89.0] Diagnosis: Low back pain[ICD10: M54.5] Diagnosis: Localized edema[ICD10: R60.0] Alexandria Barron MD, [facility] CPT- 4: 33732 11/06/2017 ([id number]) Miscellaneous no charge Diagnosis: Localized edema[ICD10: R60.0] Diagnosis: Cellulitis of right lower limb[ICD10: L03.115] Diagnosis: Cellulitis of left lower limb[ICD10: L03.116] Светлана Barron MD, [facility] CPT-4: 04250 11/03/2017 [id number] EST. PATIENT, LEVEL III Diagnosis: Cellulitis of left lower limb[ICD10: L03.116] Diagnosis: Localized edema[ICD10: R60.0] Светлана Barron MD, [facility] CPT-4 : 57945 10/29/2017 ([id number]) 76582 EST. PATIENT, LEVEL IV Diagnosis: Essential (primary) hypertension[ICD10: I10] Diagnosis: Atrophy of thyroid (acquired)[ICD10: E03.4] Diagnosis: Pain in left knee[ICD10: M25.562] Diagnosis: Stiffness of left hand, not elsewhere classified[ICD10: M25.642] Diagnosis: Stiffness of right hand, not elsewhere classified[ICD10: M25.641] Alexandria Barron MD, [facility] CPT-4: 68972 09/04/2017 ([id number]) 98374 EST. PATIENT, LEVEL III Diagnosis: Other viral warts[ICD10: B07.8] Diagnosis: Other skin changes[ICD10: R23.8] Alexandria Barron MD, [facility] CPT-4: 98708 08/08/2017 ([id number]) 26607 EST. PATIENT, LEVEL IV Diagnosis: Essential (primary) hypertension[ICD10: I10] Diagnosis: Atrophy of thyroid (acquired)[ICD10: E03.4] Diagnosis: Low back pain[ICD10: M54.5] Alexandria Barron MD, [facility] CPT- 4: 43964 05/29/2017 ([id number]) 73109 EST. PATIENT, LEVEL IV Diagnosis: Essential (primary) hypertension[ICD10: I10] Diagnosis: Atrophy of thyroid (acquired)[ICD10: E03.4] Diagnosis: Encounter for immunization[ICD10: Z23] Diagnosis: Sick sinus syndrome[ICD10: I49.5] Alexandria Barron MD, [facility] CPT-4: 60187 04/16/2017 ([id number]) Miscellaneous no charge Diagnosis: Cellulitis of left lower limb[ICD10: L03.116] [facility] CPT-4: 96029 02/24/2017 79628 EST. PATIENT, LEVEL III Diagnosis: Cellulitis of left lower limb[ICD10: L03.116] Diagnosis: Cellulitis of right lower limb[ICD10: L03.115] Светлана Barron MD, [facility] CPT-4: 77760 02/10/2017 ([id number]) 46424 EST. PATIENT, LEVEL IV Diagnosis: Essential (primary) hypertension[ICD10: I10] Diagnosis: Other abnormal glucose[ICD10: R73.09] Diagnosis: Localized edema[ICD10: R60.0] Alexandria Barron MD, [facility] CPT- 4: 19330 01/21/2017 77150 EST. PATIENT, LEVEL IV Diagnosis: Essential (primary) hypertension[ICD10: I10] Diagnosis: Pain in left knee[ICD10: M25.562] Diagnosis: Atrophy of thyroid (acquired)[ICD10: E03.4] Alexandria Barron MD, [facility] CPT-4: 38100 12/18/2016 ([id number]) 87806 EST. PATIENT, LEVEL IV Diagnosis: Essential (primary) hypertension[ICD10: I10] Diagnosis: Pain in left knee[ICD10: M25.562] Diagnosis: Other instability, left knee[ICD10: M25.362] Diagnosis: Other chronic pain[ICD10: G89.29] Alexandria Barron MD, [facility] CPT-4: 17733 08/26/2016 ([id number]) 50032 EST. PATIENT, LEVEL III Diagnosis: Localized edema[ICD10: R60.0] Sandra Barron MD, [facility] CPT-4: 30348 02/27/2016 ([id number]) Miscellaneous no charge Diagnosis: Lymphedema, not elsewhere classified[ICD10: I89.0] Sandra Barron MD, [facility] CPT-4: 41925 02/20/2016 ([id number]) 38491 EST. PATIENT, LEVEL III Diagnosis: Contusion of left lower leg, subsequent encounter[ICD10: S80.12XD] Diagnosis: Abrasion of scalp, subsequent encounter[ICD10: S00.01XD] Diagnosis: Laceration without foreign body of left upper arm, subsequent encounter[ICD10: S41.112D] Diagnosis: Localized edema[ICD10: R60.0] Sandra Barron MD, [facility] CPT-4: 83151 02/19/2016 ([id number]) Miscellaneous no charge Diagnosis: Laceration without foreign body of left upper arm, subsequent encounter[ICD10: S41.112D] Diagnosis: Abrasion of scalp, subsequent encounter[ICD10: S00.01XD] Sandra Barron MD , [facility] CPT-4: 11737 02/12/2016 [id number]) 69854 EST. PATIENT, LEVEL IV Diagnosis: Contusion of left lower leg, initial encounter[ICD10: S80.12XA] Diagnosis: Abrasion of scalp, initial encounter[ICD10: S00.01XA] Diagnosis: Laceration without foreign body of left upper arm, initial encounter[ ICD10: S41.112A] Diagnosis: Localized edema[ICD10: R60.0] Diagnosis: Hypothyroidism, unspecified[ICD10: E03.9] Diagnosis: Essential (primary) hypertension[ICD10: I10] Alexandria Barron MD, [facility] CPT-4: 99412 02/08/2016 [id number]) 00473 EST. PATIENT, LEVEL IV Diagnosis: Cough[ICD10: R05] Diagnosis: Low back pain[ICD10: M54.5] Diagnosis: Allergic rhinitis due to pollen[ICD10: J30.1] Diagnosis: Acute upper respiratory infection, unspecified[ICD10: J06.9] Diagnosis: Acute bronchitis, unspecified[ICD10: J20.9] Sandra Barron MD, [facility] CPT-4: 66274 11/16/2015 [id number]) 53718 EST. PATIENT, LEVEL IV Diagnosis: Hypothyroidism, unspecified[ICD10: E03.9] Diagnosis: Lymphedema, not elsewhere classified[ICD10: I89.0] Alexandria Barron MD, [facility] CPT-4: 26013 07/18/2015 14508 EST. PATIENT, LEVEL IV Diagnosis: Contusion of left lower leg, subsequent encounter[ICD10: S80.12XD] Diagnosis: Cellulitis of left lower limb[ICD10: L03.116] Светлана Barron MD, [facility] CPT-4: 54904 06/27/2015 59383 EST. PATIENT, LEVEL III Diagnosis: Contusion of left lower leg, initial encounter[ICD10: S80.12XA] Diagnosis: Cellulitis of left lower limb[ICD10: L03.116] Светлана Braron MD, [facility] CPT-4: 13361 06/19/2015 ([id number] 22271 EST. 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 PATIENT, LEVEL III Diagnosis: Rosacea, acne[ICD9: 695.3] Diagnosis: Lymphedema[ICD9: 457.1] Sandra Barron MD, [facility] CPT-4: 56835 02/27/2015 ([id number]) 98758 EST. PATIENT, LEVEL III Diagnosis: Right leg swelling[ICD9: 729.81] Alexandria Barron MD, [facility] CPT-4: 57193 01/26/2015 ([id number]) 56183 EST. PATIENT, LEVEL III Diagnosis: CELLULITIS OF LEG[ICD9: 682.6] Mary Ann Barron MD, [facility] CPT-4 : 39223 01/16/2015 ([id number]) OFFICE VISIT, NEW - LEVEL 4 Diagnosis: Back pain[ICD9: 724.5] Diagnosis: Lymphedema[ICD9: 457.1] Diagnosis: Sacroiliitis[ICD9: 720.2] Diagnosis: Chronic pain[ICD9: 338.29] Diagnosis: HYPOTHYROIDISM[ICD9: 244.9] Diagnosis: Dysphagia[ICD9: 787.20] Alexandria Barron MD, [facility] CPT-4: 80575 12/05/2014 Plan of Care Planned Activity Notes [...] compression, elevate lower extremities while seated. 07/07/2018 Patient Education: Patient Medication Summary Completed [...] edema. 06/22/2018 Appointment: Alexandria Barron WPtel: [phone] [facility] (15 min) Moderate 06/22/2018 Patient Education: Patient Medication Summary Completed 06/22/2018 Appointment: Alexandria Barron WPtel: [phone] [facility] (15 min) Moderate 05/27/2018 Visit Plan: Hypertension [...] over-medication. 05/25/2018 Appointment: Alexandria Barron WPtel: [phone] [facility] (15 min) Moderate 05/25/2018 Patient Education: Patient Medication Summary Completed 05/25/2018 Patient Education: Back Pain Completed 05/25/2018 Appointment: Светлана Garcia WPtel: [phone] [facility] [place] (30 min) Complex 05/15/2018 Visit Plan: [...] in clinic. 04/23/2018 Appointment: Alexandria Barron WPtel: [address] [place], [place] [id number] (15 min) Moderate 04/23/2018 Patient Education: Patient [...] request. 04/01/2018 Appointment: [phone] (15 min) Moderate 04/01/2018 Patient Education: Patient [...] goes well. 03/18/2018 Appointment: Alexandria Bar[facility]: [phone] [place] [place] (15 min) Moderate 03/18/2018 Patient Education: [...] on buttock. 03/09/2018 Appointment: Alexandria Barron [facility]Ptel: [phone] [place] [place] (15 min) Moderate 03/09/2018 Patient Education: [...] report. 02/12/2018 Appointment: Alexandria Barron WPtel: [phone] [facility] (15 min) Moderate 02/12/2018 Patient Education: Patient Medication Summary Completed 02/12/2018 Visit Plan: Bronchitis- Pt advised to increase fluids, vitamin C. Discussed natural and expected course of this diagnosis and need to alert me if symptoms do not follow expected course, or if any worse. RX sent to patient's pharmacy. 12/26/2017 Appointment: Sandra Mcdonald WPtel: [phone] [phone] [place] (15 min) Moderate 12/26/2017 Patient Education: [...] seated. 12/04/2017 Appointment: Alexandria Barron WPtel: [phone] [facility] [place] (30 min) Complex 12/04/2017 Patient Education: [...] discharge. 11/13/2017 Appointment: Светлана Garcia WPtel: [phone] [facility] (30 min) Complex 11/13/2017 Patient Education: [...] care. 11/06/2017 Appointment: Alexandria Barron WPtel: [phone] [facility] (30 min) Complex 11/06/2017 Patient Education: Patient [...] edema. 10/29/2017 Appointment: Светлана Garcia WPtel: [phone] [facility] (15 min) Moderate 10/29/2017 Patient Education: Patient [...] sample 09/04/2017 Appointment: Alexandria Barron WPtel: [phone] [facility] (15 min) Moderate 09/04/2017 Patient Education: Patient Medication Summary Completed 09/04/2017 Appointment: [facility]ветлана [phone] (15 min) Moderate 08/18/2017 Visit Plan: Skin lesion on face - lesion removed with scalpel and dressed with medihoney, pt to RTC in 10 days for treatment of the lesion if not fully resolved. 08/08/2017 Appointment: Alexandria Barron [facility]Ptel: [phone] [place] (30 min) Complex 08/08/2017 Patient Education: Patient [...] medication. 05/29/2017 Appointment: Alexandria Barron WPtel: [phone] [facility] (15 min) Moderate 05/29/2017 Patient Education: Patient Medication Summary Completed 05/29/2017 Appointment: Alexandria Barron WPtel: [address] [place], [place] [id number] (15 min) Moderate 04/30/2017 Referral: Alberta Wilks [address] [facility] Patient informed. Referral info faxed. Completed [...] of control. 04/16/2017 Appointment: Alexandria Barron WPtel: [address] [place], [place] [phone] (15 min) Moderate 04/16/2017 Patient Education: Patient Medication Summary Completed 04/16/2017 Care Plan: Referral Order SNOMED-CT : [id number] Pending 04/16/2017 Visit Plan: Wound healed - no further treatment at this time. 02/24/2017 Appointment: Nurse Visit 02/24/2017 Patient Education: Patient Medication Summary Completed 02/24/2017 Appointment: Nurse Visit 02/18/2017 Appointment: Светлана Garcia WPtel: [facility] (30 min) Complex 02/14/2017 Visit Plan: Cellulitis - The patient was instructed in appropriate wound care. The patient was instructed to use the antibiotic as per RX. The patient is to call for any change in symptoms, increase in size of the lesion, increase in pain, worsening redness, warmth, discharge. 02/10/2017 Appointment: Светлана Garcia WPtel: [phone] [place] (30 min) Complex 02/10/2017 Patient Education: Patient [...] chocolate intake. 01/21/2017 Appointment: Alexandria Barron [facility]Ptel: [phone] [place] (15 min) Moderate 01/21/2017 Patient Education: Patient [...] improving. 12/18/2016 Appointment: Alexandria Barron [facility]Ptel: [phone] [place] (15 min) Moderate 12/18/2016 Patient Education: Patient [...] specialist 08/26/2016 Appointment: Alexandria Barron WPtel: [phone] [facility] (15 min) Moderate 08/26/2016 Patient Education: Patient Medication Summary Completed 08/26/2016 Care Plan: Referral Order SNOMED-CT : [id number] Pending 08/26/2016 Appointment: Sandra Mcdonald WPtel: [phone] [phone] [place] (30 min) Complex 03/11/2016 Visit Plan: Edema - improved-pt has been advised to elevate legs to prevent dependent edema, compression has been recommended to help to naturally decrease peripheral edema. Diuretic use has been discussed and pt has been instructed in appropriate use of such medication as necessary to further attempt to reduce peripheral edema. 02/27/2016 Appointment: Sandra Mcdonald WPtel: [phone] (30 min) Complex 02/27/2016 Patient Education: Patient Medication Summary Completed 02/27/2016 Appointment: Nurse Visit 02/20/2016 Patient Education: Patient Medication Summary Completed 02/20/2016 Visit Plan: Abrasion of scalp-healing well-continue wound care as directed Laceration left arm-healing well-continue wound care-may leave open to air Contusion of left kwm-iumbiaoyg-blrdpule to monitor Edema-elevate legs-follow up tomorrow for quick check of swelling 02/19/2016 Appointment: Sandra Mcdonald WPtel: [phone] [phone] [place] (15 min) Moderate 02/19/2016 Patient Education: [...] peripheral edema. 02/08/2016 Appointment: Alexandria Barron WPtel: [address] [place] [id number] (15 min) Moderate 02/08/2016 Patient Education: Patient [...] of swelling. 07/18/2015 Appointment: Alexandria Barron WPtel: [phone] [place] (15 min) Moderate 07/18/2015 Patient Education: Patient [...] not improving. 04/03/2015 Appointment: Alexandria Barron WPtel: [phone] [place] (15 min) Moderate 04/03/2015 Patient Education: Patient Medication Summary Completed 04/03/2015 Visit Plan: Rosacea-continue finacea as directed-add metronidazole cream twice daily-call if symptoms do not improve or if any worse. Inuvzuvols-rgcyuwu-mtwnpqti with wraps-no change in treatment 02/27/2015 Appointment: [...] EGD. 12/05/2014 Appointment: Alexandria Barron WPtel: [phone] [facility] [place] ([place]) New Patient 12/05/2014 Patient Education: Patient Medication Summary Completed 12/05/2014 Patient Education: Hypertension Completed 12/05/2014 Referral: Jose A Rios Referral Appointment Requested Referral: Alberta Wilks [address] [facility] [place] Referral Appointment Requested Referral: Amarjit Veronica WPtel: [phone] [facility] [place] Referral Appointment Requested Referral: Jayro Wetzel [...] worse. RX sent to patient's pharmacy. . Bradycardia - Referral to Dr. Wilks. [...] leave open to air Contusion of left gqd-wszodvdpz-mzugodlg to monitor Edema-elevate legs-follow up tomorrow for [...] do not improve or if any worse. Hubucpnbqj-purvpwn-rzquhynn with wraps-no change in treatment . Hypertension [...] no further treatment at this time. . Edema - improved-pt has been advised [...] on her chocolate intake. . Cellulitis - continue with oral antibiotics as previously directed, return to clinic as previously directed, call for acute change in symptoms, worsening redness, warmth, discharge. take lasix 40mg daily x 1 week [...] high dose flu shot today in clinic. VENOUS DOPPLER RIGHT LEG . Right leg swelling-significantly more than left-plan for venous doppler- continued compression-elevated as much as possible. Patient verbalized understanding of plan.
[2018-11-23] MEDS ORDERED: predniSONE 20 MG TAB PO ONE (16:15)
--- OUTSIDE RECORDS SUMMARY | 2018-11-23 16:15 | XMS REPORT | CCD ---
Author Author [facility] Organization [facility] Address [address] [place] [address] Phone Care Team Providers Care Sulphate Tester Name Role Phone PP Unavailable CCM Unavailable Summary Purpose Interface Exchange Insurance Providers Payer name Policy type / Coverage type Covered libertarian ID Effective Begin Date Effective End Date WPS Medicare Part B Medicare Part B [id number] Unknown Unknown [facility] Medicare Part B [id number] Unknown Unknown Family history Brother Diagnosis Age At Onset Diabetes Unknown Skin cancer Unknown Father Diagnosis Age At Onset Heart disease Unknown Mother Diagnosis Age At Onset advanced age Unknown Hypothyroid Unknown Social History Social History Element Codes Description Effective Dates Marital status Unknown Single 12/05/2014 Number of children Unknown 0 12/05/2014 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/[address]: 1435044 Quit 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 quit 20-25 [...] : 782.3 ICD-10: R60.0 Active 02/26/2016 Unknown Atrophy of thyroid (acquired) ICD-9: 244.8 ICD-10: E03.4 Active 12/18/2016 Unknown Encounter for immunization ICD-9: V04.81 ICD-10: [...] ICD-9 : 782.3 ICD-10: R60.0 02/26/2016 Active Atrophy of thyroid (acquired) ICD-9: 244.8 ICD-10: E03.4 12/18/2016 Active Encounter for immunization ICD-9: V04.81 ICD-10: [...] Fill Instructions nadolol 20 mg tablet RxNorm: 258109 1/2 Tablet(s) PO daily No Stop Date Active oxycodone 5 mg tablet RxNorm: 4212043 2 Tablet(s) PO BID 201707/17/2018 Active nadolol 20 mg tablet RxNorm: 407083 1 Tablet(s) TAKE 1 TABLET BY MOUTH EVERY DAY 05/25/2018 06/21/2018 Inactive Generic For:*CORGARD 20 MG TABLET 05/21/2018 10:10: 43 AM spironolactone 50 mg tablet RxNorm: 939652 TAKE 1 TABLET BY MOUTH EVERY DAY 05/21/2018 06/03/2018 Inactive Generic For:ALDACTONE 50MG 05/21/2018 10:10:31 AM Ocuvite tablet RxNorm : 1 Tablet(s) PO BID 05/21/2018 06/03/2018 Inactive pramipexole 0.25 mg tablet RxNorm: 271332 TAKE 1 TABLET BY MOUTH TWICE DAILY 05/21/2018 06/03/2018 Inactive Generic For:MIRAPEX 0.25MG TAB 05/21/2018 10:10:48 AM levothyroxine 88 mcg tablet RxNorm: 360133 TAKE 1 TABLET BY MOUTH EVERY DAY WITH A 100MCG TABLET 05/21/2018 06/03/2018 Inactive Generic For:*SYNTHROID 0.088MG TAB 05/21/2018 10:10:11 AM levothyroxine 100 mcg tablet RxNorm: 200986 TAKE 1 TABLET BY MOUTH EVERY DAY , TAKE WITH AN 88 MCG TABLET 05/21/2018 Inactive Generic For:*SYNTHROID 100 MCG TABLET 05/21/2018 10:10:04 AM Vitamin D3 2,000 unit capsule RxNorm: 756341 1 Capsule(s) PO daily 05/21/2018 No Stop Date Active nadolol 20 mg tablet RxNorm: 903013 TAKE 1/2 TABLET BY MOUTH EVERY DAY 05/21/2018 05/24/2018 Inactive Generic For:*CORGARD 20 MG TABLET 05/21/2018 10:10:43 AM oxycodone 5 mg tablet RxNorm: 9071159 1 Tablet(s) PO QID as needed 05/15/2018 06/13/2018 Inactive pramipexole 0.25 mg tablet RxNorm: 942391 1 Tablet(s) PO BID 05/20/2018 Inactive Requip 0.25 mg tablet RxNorm: 087169 1 Tablet(s) PO BID 201705/03/2018 Inactive Lasix 40 mg tablet RxNorm: 996108 1 Tablet(s) PO daily as needed edema if more than 3 pounds weight loss in 48 hours 04/23/2018 08/20/2018 Active potassium chloride ER 10 mEq tablet,extended release RxNorm: 005185 1 Tablet(s) PO daily as needed when taking lasix 04/23/2018 08/20/2018 Active potassium chloride ER 10 mEq tablet,extended release RxNorm: 696791 1 Tablet(s) PO daily as needed when taking lasix 04/01/2018 04/22/2018 Inactive Lasix 40 mg tablet RxNorm: 303860 1 Tablet(s) PO daily as needed edema 04/01/2018 04/22/2018 Inactive oxycodone 5 mg tablet RxNorm: 3891151 1 Tablet(s) PO QID as needed 03/18/2018 04/16/2018 Inactive levothyroxine 88 mcg tablet RxNorm: 489500 1 Tablet(s) PO daily . Take with 100 mcg tablet. 02/19/2018 05/20/2018 Inactive spironolactone 50 mg tablet RxNorm: 818299 Tablet(s) TAKE 1 TABLET BY MOUTH DAILY 02/19/2018 05/20/2018 Inactive levothyroxine 100 mcg tablet RxNorm: 574620 1 Tablet(s) PO daily . Take with 88 mcg tablet 02/19/2018 02/18/2018 Inactive levothyroxine 88 mcg tablet RxNorm: 897293 1 Tablet(s) PO daily . Take with 100 mcg tablet. 02/19/2018 02/18/2018 Inactive levothyroxine 100 mcg tablet RxNorm: 571118 1 Tablet(s) PO daily . Take with 88 mcg tablet 02/19/2018 05/20/2018 Inactive spironolactone 25 mg tablet RxNorm: 921430 1 Tablet(s) PO daily 02/12/2018 02/18/2018 Inactive pt will let you know when she is ready for the refill oxycodone 10 mg tablet RxNorm: 1777645 1 Tablet(s) PO TID as needed 02/12/2018 03/13/2018 Inactive oxycodone 10 mg tablet RxNorm: 4372740 1 Tablet(s) PO Q6 as needed 01/22/2018 02/11/2018 Inactive spironolactone 50 mg tablet RxNorm: 404131 TAKE 1 TABLET BY MOUTH DAILY 01/05/2018 02/11/2018 Inactive Generic For:ALDACTONE 50MG 01/05/2018 8:27:46 AM Kenalog 40 mg/mL suspension for injection RxNorm: 9390054 1 Milliliter(s) Inj 12/26/2017 12/26/2017 Inactive Zithromax Z-Fransisco 250 mg tablet RxNorm: 539763 1 Tablet(s) PO UD 12/26/2017 12/30/2017 Inactive oxycodone 10 mg tablet RxNorm: 0098805 1 Tablet(s) PO Q6 as needed 11/25/2017 12/24/2017 Inactive nystatin 100,000 unit/gram topical powder RxNorm: 014767 1 Application TOP BID 11/13/2017 No Stop Date Active nystatin 100,000 unit/gram topical cream RxNorm: 015629 Gram(s) TOP QID 11/12/2017 11/18/2017 Inactive nystatin 100,000 unit/gram topical cream RxNorm: 080275 Gram(s) TOP QID 11/12/2017 11/11/2017 Inactive Lasix 20 mg tablet RxNorm: 172448 1 Tablet(s) PO daily as needed edema 11/03/2017 11/07/2017 Inactive potassium chloride ER 10 mEq tablet,extended release RxNorm: 681339 1 Tablet(s) PO daily while on the lasix 11/03/201701/2018 Inactive Keflex 500 mg capsule RxNorm: 836250 1 Capsule(s) PO TID 201711/07/2017 Inactive potassium chloride ER 10 mEq tablet,extended release RxNorm: 874526 1 Tablet(s) PO daily while on the lasix 10/29/2017 Inactive Lasix 20 mg tablet RxNorm: 763232 1 Tablet(s) PO daily as needed edema 10/29/2017 10/31/2017 Inactive oxycodone 10 mg tablet RxNorm: 7407845 1 Tablet(s) PO Q6 as needed 09/29/2017 10/28/2017 Inactive levothyroxine 200 mcg tablet RxNorm: 186869 TAKE 1 TABLET BY MOUTH DAILY 09/01/2017 02/18/2018 Inactive Generic For:*SYNTHROID 0.2MG TAB 09/01/2017 8:36:32 AM Bactrim DS 800 mg-160 mg tablet RxNorm: 738630 1 Tablet(s) PO BID 08/07/2017 08/16/2017 Inactive Bactrim DS 800 mg-160 mg tablet RxNorm: 049960 1 Tablet(s) PO BID 08/07/2017 08/06/2017 Inactive oxycodone 10 mg tablet RxNorm: 0602497 1 Tablet(s) PO Q6 as needed 07/31/2017 08/29/2017 Inactive spironolactone 50 mg tablet RxNorm: 672750 1 Tablet(s) PO daily 06/30/2017 12/26/2017 Inactive Not due for a refill until next month nadolol 20 mg tablet RxNorm: 573606 1 Tablet(s) PO daily 201611/28/2017 Inactive nadolol 20 mg tablet RxNorm: 067766 1/2 Tablet(s) PO daily 11/28/2017 Inactive nadolol 20 mg tablet RxNorm: 793420 1/2 Tablet(s) PO daily 05/21/2017 Inactive oxycodone 10 mg tablet RxNorm: 9271819 1 Tablet(s) PO Q6 as needed 04/01/2017 04/30/2017 Inactive levothyroxine 200 mcg tablet RxNorm: 456124 TAKE 1 TABLET BY MOUTH DAILY 03/10/2017 08/31/2017 Inactive Generic For:*SYNTHROID 0.2MG TAB 03/10/2017 8:49:05 AM potassium chloride ER 10 mEq tablet,extended release RxNorm: 069652 1 Tablet(s) PO daily while on the lasix 02/18/2017 Inactive Lasix 20 mg tablet RxNorm: 826140 1 Tablet(s) PO daily as needed edema 02/18/2017 02/20/2017 Inactive Keflex 500 mg capsule RxNorm: 261923 1 Capsule(s) PO TID 201602/16/2017 Inactive Lasix 20 mg tablet RxNorm: 889652 1 Tablet(s) PO daily 201602/15/2017 Inactive potassium chloride ER 10 mEq tablet,extended release RxNorm: 382461 1 Tablet(s) PO daily while on the lasix 02/14/2017 Inactive Lasix 20 mg tablet RxNorm: 299808 1 Tablet(s) PO daily 201602/13/2017 Inactive potassium chloride ER 10 mEq tablet,extended release RxNorm: 079339 1 Tablet(s) PO daily while on the lasix 02/14/2017 Inactive oxycodone 10 mg tablet RxNorm: 9093251 1 Tablet(s) PO Q6 as needed 02/05/2017 03/06/2017 Inactive minocycline 50 mg tablet RxNorm: 809574 1 Tablet(s) PO Q72H 12/03/2017 Inactive spironolactone 50 mg tablet RxNorm: 493515 1 Tablet(s) PO daily 12/18/2016 06/15/2017 Inactive Not due for a refill until next month oxycodone 10 mg tablet RxNorm: 8786524 1 Tablet(s) PO Q6 as needed 12/05/2016 01/03/2017 Inactive nadolol 20 mg tablet RxNorm: 678907 1 Tablet(s) PO daily 201604/15/2017 Inactive oxycodone 10 mg tablet RxNorm: 6443778 1 Tablet(s) PO Q6 as needed 09/30/2016 10/29/2016 Inactive levothyroxine 200 mcg tablet RxNorm: 808835 TAKE 1 TABLET BY MOUTH DAILY 09/12/2016 03/09/2017 Inactive Generic For:*SYNTHROID 0.2MG TAB 09/12/2016 8:41:27 AM oxycodone 10 mg tablet RxNorm: 6421041 1 Tablet(s) PO Q6 as needed 08/06/2016 09/04/2016 Inactive oxycodone 10 mg tablet RxNorm: 1035148 1 Tablet(s) PO Q6 as needed 06/10/2016 07/09/2016 Inactive oxycodone 10 mg tablet RxNorm: 6758193 1 Tablet(s) PO Q6 as needed 04/05/2016 05/04/2016 Inactive levothyroxine 200 mcg tablet RxNorm: 433108 1 Tablet(s) PO daily 03/14/2016 09/09/2016 Inactive oxycodone 10 mg tablet RxNorm: 6126544 1 Tablet(s) PO Q6 as needed 02/08/2016 03/08/2016 Inactive Kenalog 40 mg/mL suspension for injection RxNorm: 7777477 Milliliter(s) Inj 11/16/2015 11/16/2015 Inactive Zithromax Z-Fransisco 250 mg tablet RxNorm: 532327 1 Tablet(s) PO UD 11/16/2015 11/20/2015 Inactive zpack, take probiotic while on abx oxycodone 10 mg tablet RxNorm: 4351568 1 Tablet(s) PO Q6 as needed 11/16/2015 02/07/2016 Inactive ceftriaxone 500 mg solution for injection RxNorm: 0241568 Inj 11/16/2015 11/16/2015 Inactive oxycodone 10 mg tablet RxNorm: 8865439 1 Tablet(s) PO Q6 as needed 10/11/2015 11/15/2015 Inactive levothyroxine 200 mcg tablet RxNorm: 485349 1 Tablet(s) PO daily 09/14/2015 03/11/2016 Inactive oxycodone 10 mg tablet RxNorm: 8779939 1 Tablet(s) PO Q6 as needed 08/10/2015 10/10/2015 Inactive Keflex 500 mg capsule RxNorm: 833513 1 Capsule(s) PO TID 201407/03/2015 Inactive Keflex 500 mg capsule RxNorm: 921418 1 Capsule(s) PO TID 201406/25/2015 Inactive oxycodone 10 mg tablet RxNorm: 8977113 1 Tablet(s) PO Q6 as needed 04/03/2015 08/09/2015 Inactive oxycodone 10 mg tablet RxNorm: 8686340 1 Tablet(s) PO Q6 as needed 02/14/2015 04/02/2015 Inactive Keflex 500 mg capsule RxNorm: 514135 1 Capsule(s) PO TID 201401/22/2015 Inactive Culturelle 10 billion cell capsule RxNorm: 206802 1 Capsule(s) PO daily 01/16/2015 02/14/2015 Inactive Dulcolax Stool Softener (docusate) 100 mg capsule RxNorm: 1181906 1 Capsule(s) PO daily 12/05/2014 02/11/2018 Inactive [SAVINGS FOR NON-COVERED DRUGS -- BIN:[id number], PCN: [id number], Group: [id number], ID# [id number], Questions: . THIS IS NOT INSURANCE.] Restasis 0.05 % eye drops in a dropperette RxNorm: 020414 1 Drop(s) OPH BID No Start Date Active Vitamin D3 2,000 unit capsule RxNorm: 542009 1 Capsule(s) PO daily No Start Date 05/20/2018 Inactive minocycline 50 mg tablet RxNorm: 381193 1 Tablet(s) PO QHS No Start Date 01/20/2017 Inactive nadolol 20 mg tablet RxNorm: 396520 1 Tablet(s) PO daily No Start Date 11/05/2016 Inactive nadolol 20 mg tablet RxNorm: 229588 1 Tablet(s) PO daily No Start Date 11/05/2016 Inactive Ocuvite tablet RxNorm : 1 Tablet(s) PO BID No Start Date 05/20/2018 Inactive oxycodone 10 mg tablet RxNorm: 9357691 1 Tablet(s) PO Q6 as needed No Start Date 02/13/2015 Inactive Dulcolax Stool Softener (docusate) 100 mg capsule RxNorm: 9377776 1 Capsule(s) PO BID No Start Date 12/04/2014 Inactive Multivitamin 50 Plus tablet RxNorm: 1 Tablet(s) PO QAM No Start Date 02/11/2018 Inactive Finacea 15 % topical gel RxNorm: 1713807 TOP No Start Date 05/24/2018 Inactive Synthroid 200mcg Oral RxNorm: oral No Start Date 09/13/2015 Inactive spironolactone 50 mg tablet RxNorm: 085589 1 Tablet(s) PO daily No Start Date 12/17/2016 Inactive spironolactone 50 mg tablet RxNorm: 213767 1 Tablet(s) PO daily No Start Date 02/11/2018 Inactive Medication Administered Medication Codes Instructions Start Date Status Kenalog 40 mg/mL suspension for injection RxNorm: 5438626 1Milliliter 12/26/2017 No longer Active ceftriaxone 500 mg solution for injection RxNorm: 0938651 11/16/2015 No longer Active Kenalog 40 mg/mL suspension for injection RxNorm: 0119119 Milliliter 11/16/2015 No longer Active Immunizations Vaccine Codes Date Status Influenza CVX: 141 04/23/2018 completed Influenza CVX: 141 04/16/2017 completed Influenza CVX: 141 08/26/2016 completed Assessments Condition Codes Effective Dates Essential (primary) hypertension ICD-10: I10 ICD-9: 401.1 06/22/2018 Localized edema ICD-10: R60.0 ICD-9: 782.3 06/22/2018 Low back pain ICD-10: M54.5 ICD-9: 724.2 05/25/2018 Atrophy of thyroid (acquired) ICD-10: E03.4 ICD-9: 244.8 05/25/2018 Other chronic pain ICD-10: G89.29 ICD-9: [...] Visit Effective Dates Notes Hospital Follow Up 06/22/2018 edema 05/25/2018 edema [...] Item Item Code Result Date Free T4 Qdv271 FREE T4 1.92 ng/dL 04/24/2018 Tsh Ord6 TSH (3rd IS) 0.11 uIU/mL 04/24/2018 Cbc With Differential Ord2 WBC 3.08 K/ul 04/24/2018 Cbc With Differential Ord2 RBC 3.89 M/ul 04/24/2018 Cbc With Differential Ord2 HGB 12.1 g/dl 04/24/2018 Cbc With Differential Ord2 Neut% 54.2 % 04/24/2018 Cbc With Differential Ord2 HCT 36.3 % 04/24/2018 Cbc With Differential Ord2 MCV 93.3 fl 04/24/2018 Cbc With Differential Ord2 Lymph% 32.5 % 04/24/2018 Cbc With Differential Ord2 MCH 31.1 pg 04/24/2018 Cbc With Differential Ord2 [place]% 13.0 % 04/24/2018 Cbc With Differential Ord2 [...] 1.00 K/ul 04/24/2018 Cbc With Differential Ord2 [place] ABS# 0.4 K/ul 04/24/2018 Cbc With Differential Ord2 Eos ABS# 0.0 K/ul 04/24/2018 Cbc With Differential Ord2 Baso ABS# 0.0 K/ul 04/24/2018 Comp Metabolic Npl592 NA 138 mEq/L 04/24/2018 Comp Metabolic Iyb370 K 3.9 mEq/L 04/24/2018 Comp Metabolic Mvx578 CL 97 mEq/L 04/24/2018 Comp Metabolic Dto814 CO2 32.0 mEq/L 04/24/2018 Comp Metabolic Iuo603 ANION GAP 13 04/24/2018 Comp Metabolic Csy336 GLUCOSE 194 mg/dL 04/24/2018 Comp Metabolic Zpe902 Creat 0.8 mg/dL 04/24/2018 Comp Metabolic Trk394 eGFR 70 ml/min/1.73m2 04/24/2018 Comp Metabolic Voj548 BUN 20 mg/dL 04/24/2018 Comp Metabolic Chv384 B/C Ratio 24.1 Ratio 04/24/2018 Comp Metabolic Atv576 CALCIUM 9.4 mg/dL 04/24/2018 Comp Metabolic Gip122 ALK PHOS 110 U/L 04/24/2018 Comp Metabolic Kht169 AST(SGOT) 33 U/L 04/24/2018 Comp Metabolic Ezu509 ALT(SGPT) 16 U/L 04/24/2018 Comp Metabolic Ukl802 BILI T 1.8 mg/dL 04/24/2018 Comp Metabolic Nne471 ALBUMIN 4.0 g/dL 04/24/2018 Comp Metabolic Adi871 TPRO 5.7 g/dL 04/24/2018 Comp Metabolic Igr284 GLOB 1.7 g/dL 04/24/2018 Comp Metabolic Ilx747 A/G Ratio 2.3 Ratio 04/24/2018 Comp Metabolic Ojo663 Osmo 284 mOsmo 04/24/2018 Tsh Ord6 TSH (3rd IS) 0.07 uIU/mL 02/13/2018 Free T4 Xyo170 FREE T4 1.85 ng/dL 02/13/2018 %Hba1C Bpb253 % HbA1c 72805-6 5.9 % 01/21/2017 %Hba1C Klt695 Gluc Ave 123 mg/dL 01/21/2017 Comp Metabolic Oun026 NA 136 mEq/L 01/21/2017 Comp Metabolic Qcx932 K 4.3 mEq/L 01/21/2017 Comp Metabolic Gqc904 CL 99 mEq/L 01/21/2017 Comp Metabolic Gyf670 CO2 30.0 mEq/L 01/21/2017 Comp Metabolic Wsh827 ANION GAP 11 01/21/2017 Comp Metabolic Sml243 GLUCOSE 234 mg/dL 01/21/2017 Comp Metabolic Krr302 Creat 0.5 mg/dL 01/21/2017 Comp Metabolic Fgp690 eGFR 115 ml/min/1.73m2 01/21/2017 Comp Metabolic Snb670 BUN 10 mg/dL 01/21/2017 Comp Metabolic Ovg873 B/C Ratio 18.5 Ratio 01/21/2017 Comp Metabolic Cwa164 CALCIUM 8.8 mg/dL 01/21/2017 Comp Metabolic Nzn572 ALK PHOS 74 U/L 01/21/2017 Comp Metabolic Zvx897 AST(SGOT) 28 U/L 01/21/2017 Comp Metabolic Qyl623 ALT(SGPT) 15 U/L 01/21/2017 Comp Metabolic Sum297 BILI T 1.1 mg/dL 01/21/2017 Comp Metabolic Aae254 ALBUMIN 3.8 g/dL 01/21/2017 Comp Metabolic Tzo311 TPRO 5.8 g/dL 01/21/2017 Comp Metabolic Huk795 GLOB 2.0 g/dL 01/21/2017 Comp Metabolic Jjc791 A/G Ratio 1.9 Ratio 01/21/2017 Comp Metabolic Eqr324 Osmo 279 mOsmo 01/21/2017 Tsh Ord6 hTSH II 0.80 uIU/mL 04/03/2015 Bili D Ord93 BILI D 0.1 mg/dL 04/03/2015 Bili D Ord93 BILI I 0.9 mg/dL 04/03/2015 Free T4 Ymd078 FREE T4 1.27 ng/dL 04/03/2015 Cbc With [...] Ord2 RDW 15.6 % 04/03/2015 Comp Metabolic Kgf355 NA 136 mEq/L 04/03/2015 Comp Metabolic Gwl721 K 4.3 mEq/L 04/03/2015 Comp Metabolic Yhn962 CL 99 mEq/L 04/03/2015 Comp Metabolic Uou349 CO2 29.0 mEq/L 04/03/2015 Comp Metabolic Exv110 ANION GAP 12 04/03/2015 Comp Metabolic Jif758 GLUCOSE 120 mg/dL 04/03/2015 Comp Metabolic Zrn427 Creat 0.5 mg/dL 04/03/2015 Comp Metabolic Cxj661 eGFR 118 ml/min/1.73m2 04/03/2015 Comp Metabolic Nnx040 BUN 11 mg/dL 04/03/2015 Comp Metabolic Tmp136 B/C Ratio 20.8 Ratio 04/03/2015 Comp Metabolic Zqr811 CALCIUM 9.3 mg/dL 04/03/2015 Comp Metabolic Xqq933 ALK PHOS 61 U/L 04/03/2015 Comp Metabolic Jbi963 AST(SGOT) 28 U/L 04/03/2015 Comp Metabolic Vpk482 ALT(SGPT) 16 U/L 04/03/2015 Comp Metabolic Mhc928 BILI T 1.0 mg/dL 04/03/2015 Comp Metabolic Oun646 ALBUMIN 4.1 g/dL 04/03/2015 Comp Metabolic Mjf974 TPRO 6.1 g/dL 04/03/2015 Comp Metabolic Phq213 GLOB 2.0 g/dL 04/03/2015 Comp Metabolic Enn127 A/G Ratio 2.1 Ratio 04/03/2015 Comp Metabolic Xiq984 Osmo 273 mOsmo 04/03/2015 Review of Systems System Result Effective Dates Constitutional No recent illness 2017 Constitutional No [...] FLU VACC PRSV FREE INC ANTIG CPT-4: 18011 04/23/2018 TRIAMCINOLONE ACET INJ NOS CPT-4: J3301 12/26/2017 ADMIN INFLUENZA VIRUS VAC CPT-4: G0008 04/16/2017 FLU VACC PRSV FREE INC ANTIG CPT-4: 66718 04/16/2017 TRIAMCINOLONE ACET INJ NOS CPT-4: J3301 11/16/2015 ROCEPHIN, PER 250 MG CPT-4: J0696 11/16/2015 Vital Signs Date Vital 06/22/2018 Blood Pressure 1: 108/64 Code : 8480-6 Heart Rate 1: 63 bpm Height: 5'1" SpO2: 98% Weight: 05/25/2018 Blood Pressure 1: 118/60 Code : 8480-6 BMI: 23.6 Code : 17232-5 Heart Rate 1 : 59 bpm Height: 5'1" Respiratory Rate: 18 bpm SpO2: 99% Temperature: 37.0 (C) / 98.6 (F ) Weight: 125 lbs 04/23/2018 Blood Pressure 2: 118/62 Code : 8480-6 BMI: 22.3 Code : 61176-7 Heart Rate 1 : 73 bpm Height: 5'1" SpO2: 97% Weight: 118 lbs 04/01/2018 Blood Pressure 1: 136/72 Code : 8480-6 BMI: 26.6 Code : 59772-0 Heart Rate 1 : 75 bpm Height: 5'1" SpO2: 98% Weight: 141 lbs 03/18/2018 Blood Pressure 1: 132/62 Code : 8480-6 Heart Rate 1: 61 bpm Height: 5'1" SpO2: 96% Weight: 03/09/2018 Blood Pressure 1: 122/60 Code : 8480-6 Heart Rate 1: 65 bpm Height: 5'1" SpO2: 98% Weight: 02/12/2018 Blood Pressure 1: 100/68 Code : 8480-6 BMI: 24.3 Code : 25363-9 Heart Rate 1 : 68 bpm Height: 5'1" SpO2: 96% Weight: 128 lbs 13 oz 12/26/2017 Blood Pressure 1: 126/68 Code : 8480-6 BMI: 26.7 Code : 06739-2 Heart Rate 1 : 66 bpm Height: 5'1" SpO2: 98% Temperature: 36.8 (C) / 98.2 (F) Weight: 141 lbs 8 oz 12/04/2017 Blood Pressure 1: 132/76 Code : 8480-6 BMI: 26.5 Code : 05719-0 Heart Rate 1 : 73 bpm Height: 5'1" SpO2: 96% Weight: 140 lbs 11/13/2017 Blood Pressure 1: 126/62 Code : 8480-6 Heart Rate 1: 69 bpm Height: 5'1" SpO2: 96% Weight: 11/06/2017 Blood Pressure 1: 142/84 Code : 8480-6 BMI: 25.7 Code : 56009-7 Heart Rate 1 : 78 bpm Height: 5'1" SpO2: 95% Temperature: 36.9 (C) / 98.5 (F) Weight: 136 lbs 10/29/2017 Blood Pressure 1: 132/68 Code : 8480-6 BMI: 26.8 Code : 57638-8 Heart Rate 1 : 70 bpm Height: 5'1" SpO2: 98% Weight: 142 lbs 09/04/2017 Blood Pressure 1: 132/74 Code : 8480-6 BMI: 25.9 Code : 08240-8 Heart Rate 1 : 68 bpm Height: 5'1" SpO2: 96% Weight: 137 lbs 08/08/2017 Blood Pressure 1: 118/72 Code : 8480-6 BMI: 26.6 Code : 47695-3 Heart Rate 1 : 68 bpm Height: 5'1" SpO2: 95% Weight: 141 lbs 05/29/2017 Blood Pressure 1: 142/78 Code : 8480-6 BMI: 26.3 Code : 11808-8 Heart Rate 1 : 65 bpm Height: 5'1" SpO2: 95% Weight: 139 lbs 04/16/2017 Blood Pressure 1: 136/62 Code : 8480-6 BMI: 27.4 Code : 94386-0 Heart Rate 1 : 38 bpm Height: 5'1" SpO2: 98% Weight: 145 lbs 02/10/2017 Blood Pressure 1: 124/70 Code : 8480-6 BMI: 27.4 Code : 07074-8 Heart Rate 1 : 70 bpm Height: 5'1" SpO2: 96% Weight: 145 lbs 01/21/2017 Blood Pressure 1: 120/70 Code : 8480-6 BMI: 27.2 Code : 65286-2 Heart Rate 1 : 65 bpm Height: 5'1" SpO2: 95% Weight: 144 lbs 12/18/2016 Blood Pressure 1: 122/74 Code : 8480-6 BMI: 27.4 Code : 35862-9 Heart Rate 1 : 66 bpm Height: 5'1" SpO2: 97% Weight: 145 lbs 08/26/2016 Blood Pressure 1: 110/64 Code : 8480-6 BMI: 28.0 Code : 44319-7 Heart Rate 1 : 67 bpm Height: 5'1" SpO2: 97% Weight: 148 lbs 02/27/2016 Blood Pressure 1: 126/74 Code : 8480-6 Heart Rate 1: 67 bpm Height: 5'1" SpO2: 97% 02/19/2016 Blood Pressure 1: 130/80 Code : 8480-6 BMI: 28.2 Code : 71188-0 Heart Rate 1 : 74 bpm Height: 5'1" SpO2: 96% Weight: 149 lbs 02/08/2016 Blood Pressure 1: 122/78 Code : 8480-6 BMI: 28.2 Code : 09662-6 Heart Rate 1 : 63 bpm Height: 5'1" SpO2: 96% Weight: 149 lbs 11/16/2015 Blood Pressure 1: 128/70 Code : 8480-6 BMI: 27.8 Code : 65138-5 Heart Rate 1 : 64 bpm Height: 5'1" SpO2: 97% Weight: 147 lbs 07/18/2015 Blood Pressure 1: 110/60 Code : 8480-6 BMI: 28.5 Code : 48385-7 Heart Rate 1 : 61 bpm Height: 5'1" SpO2: 97% Weight: 151 lbs 06/27/2015 Blood Pressure 1: 122/60 Code : 8480-6 BMI: 28.9 Code : 85145-7 Heart Rate 1 : 63 bpm Height: 5'1" SpO2: 95% Weight: 153 lbs 06/19/2015 Blood Pressure 1: 120/78 Code : 8480-6 Heart Rate 1: 68 bpm SpO2: 96% Weight: 154 lbs 04/03/2015 Blood Pressure 1: 128/68 Code : 8480-6 BMI: 29.1 Code : 05197-0 Heart Rate 1 : 70 bpm Height: 5'1" SpO2: 97% Weight: 154 lbs 02/27/2015 Blood Pressure 1: 122/84 Code : 8480-6 BMI: 29.5 Code : 54373-1 Heart Rate 1 : 67 bpm Height: 5'1" SpO2: 95% Weight: 156 lbs 01/26/2015 Blood Pressure 1: 132/70 Code : 8480-6 BMI: 30.2 Code : 79002-4 Heart Rate 1 : 76 bpm Height: 5'1" Weight: 160 lbs 01/16/2015 Blood Pressure 1: 140/70 Code : 8480-6 BMI: 30.0 Code : 34897-4 Heart Rate 1 : 78 bpm Height: 5'1" Respiratory Rate: 20 bpm Weight: 159 lbs 12/05/2014 Blood Pressure 1: 138/78 Code : 8480-6 BMI: 30.8 Code : 48937-0 Heart Rate 1 : 76 bpm Height: 5'1" Weight: 163 lbs Functional Status No Functional Status data History of Present Illness Symptom Name Status Result Effective Date Notes Hospital Follow Up _ Other: edema, weakness [...] data Encounters Encounter Performer Location Codes Date [id number]) [id number] EST. PATIENT, LEVEL IV Diagnosis: Essential (primary) hypertension[ICD10: I10] Diagnosis: Localized edema[ICD10: R60.0] Alexandria Barron MD, [facility] CPT- 4: 42606 06/22/2018 [id number]) [id number] EST. PATIENT, LEVEL IV Diagnosis: Atrophy of thyroid (acquired)[ICD10: E03.4] Diagnosis: Essential (primary) hypertension[ICD10: I10] Diagnosis: Other chronic pain[ICD10: G89.29] Diagnosis: Pain in left knee[ICD10: M25.562] Diagnosis: Low back pain[ICD10: M54.5] Alexandria Barron MD, [facility] CPT- 4: 07582 05/25/2018 [id number]) [id number] EST. 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 PATIENT, LEVEL IV Diagnosis: Essential (primary) hypertension[ICD10: I10] Diagnosis: Low back pain[ICD10: M54.5] Diagnosis: Localized edema[ICD10: R60.0] Diagnosis: Other chronic pain[ICD10: G89.29] Diagnosis: Obstructive sleep apnea (adult) (pediatric)[ICD10: G47.33] Alexandria Barron MD , [facility] CPT-4: 34909 04/01/2018 ([id number]) [id number] EST. PATIENT, LEVEL IV Diagnosis: Essential (primary) hypertension[ICD10: I10] Diagnosis: Other chronic pain[ICD10: G89.29] Diagnosis: Unsteadiness on feet[ICD10: R26.81] Alexandria Barron MD, [facility] CPT-4: 75079 03/18/2018 ([id number]) [id number] EST. PATIENT, LEVEL IV Diagnosis: Low back pain[ICD10: M54.5] Diagnosis: Localized edema[ICD10: R60.0] Diagnosis: Essential (primary) hypertension[ICD10: I10] Diagnosis: Other chronic pain[ICD10: G89.29] Diagnosis: Pressure ulcer of left buttock, stage 1[ICD10: L89.321] Diagnosis: Obstructive sleep apnea (adult) (pediatric)[ICD10: G47.33] Alexandria Barron MD , [facility] CPT-4: 77315 03/09/2018 ([id number]) [id number] EST. PATIENT, LEVEL IV Diagnosis: Atrophy of thyroid (acquired)[ICD10: E03.4] Diagnosis: Essential (primary) hypertension[ICD10: I10] Diagnosis: Localized edema[ICD10: R60.0] Diagnosis: Other chronic pain[ICD10: G89.29] Alexandria Barron MD, [facility] CPT-4: 70349 02/12/2018 ([id number]) 05195 EST. PATIENT, LEVEL III Diagnosis: Cough[ICD10: R05] Diagnosis: Acute bronchitis, unspecified[ICD10: J20.9] [facility] CPT-4: 78582 12/26/2017 ([id number]) 21968 EST. PATIENT, LEVEL IV Diagnosis: Essential (primary) hypertension[ICD10: I10] Diagnosis: Other specified noninfective disorders of lymphatic vessels and lymph nodes[ICD10: I89.8] Diagnosis: Atrophy of thyroid (acquired)[ICD10: E03.4] [facility] CPT-4: 58234 12/04/2017 45164 EST. PATIENT, LEVEL III Diagnosis: Candidiasis of skin and nail[ICD10: B37.2] Светлана Barron MD, [facility] CPT-4: 59605 11/13/2017 ([id number]) 85783 EST. PATIENT, LEVEL III Diagnosis: Lymphedema, not elsewhere classified[ICD10: I89.0] Diagnosis: Low back pain[ICD10: M54.5] Diagnosis: Localized edema[ICD10: R60.0] Alexandria Barron MD, [facility] CPT- 4: 17648 11/06/2017 ([id number]) Miscellaneous no charge Diagnosis: Localized edema[ICD10: R60.0] Diagnosis: Cellulitis of right lower limb[ICD10: L03.115] Diagnosis: Cellulitis of left lower limb[ICD10: L03.116] Светлана Barron MD, [facility] CPT-4: 49523 11/03/2017 29559 EST. PATIENT, LEVEL III Diagnosis: Cellulitis of left lower limb[ICD10: L03.116] Diagnosis: Localized edema[ICD10: R60.0] Светлана Barron MD, [facility] CPT-4 : 61383 10/29/2017 ([id number]) 84126 EST. PATIENT, LEVEL IV Diagnosis: Essential (primary) hypertension[ICD10: I10] Diagnosis: Atrophy of thyroid (acquired)[ICD10: E03.4] Diagnosis: Pain in left knee[ICD10: M25.562] Diagnosis: Stiffness of left hand, not elsewhere classified[ICD10: M25.642] Diagnosis: Stiffness of right hand, not elsewhere classified[ICD10: M25.641] Alexandria Barron MD, [facility] CPT-4: 79839 09/04/2017 ([id number]) 71005 EST. PATIENT, LEVEL III Diagnosis: Other viral warts[ICD10: B07.8] Diagnosis: Other skin changes[ICD10: R23.8] Alexandria Barron MD, [facility] CPT-4: 68095 08/08/2017 ([id number]) 06071 EST. PATIENT, LEVEL IV Diagnosis: Essential (primary) hypertension[ICD10: I10] Diagnosis: Atrophy of thyroid (acquired)[ICD10: E03.4] Diagnosis: Low back pain[ICD10: M54.5] Alexandria Barron MD, [facility] CPT- 4: 53218 05/29/2017 ([id number]) 10587 EST. PATIENT, LEVEL IV Diagnosis: Essential (primary) hypertension[ICD10: I10] Diagnosis: Atrophy of thyroid (acquired)[ICD10: E03.4] Diagnosis: Encounter for immunization[ICD10: Z23] Diagnosis: Sick sinus syndrome[ICD10: I49.5] Alexandria Barron MD, [facility] CPT-4: 73437 04/16/2017 ([id number]) Miscellaneous no charge Diagnosis: Cellulitis of left lower limb[ICD10: L03.116] Светлана Barron MD, [facility] CPT-4: 74451 02/24/2017 16855 EST. PATIENT, LEVEL III Diagnosis: Cellulitis of left lower limb[ICD10: L03.116] Diagnosis: Cellulitis of right lower limb[ICD10: L03.115] Светлана Barron MD, [facility] CPT-4: 86706 02/10/2017 ([id number]) 24118 EST. PATIENT, LEVEL IV Diagnosis: Essential (primary) hypertension[ICD10: I10] Diagnosis: Other abnormal glucose[ICD10: R73.09] Diagnosis: Localized edema[ICD10: R60.0] Alexandria Barron MD, [facility] CPT- 4: 90067 01/21/2017 61478 EST. 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 PATIENT, LEVEL IV Diagnosis: Essential (primary) hypertension[ICD10: I10] Diagnosis: Pain in left knee[ICD10: M25.562] Diagnosis: Other instability, left knee[ICD10: M25.362] Diagnosis: Other chronic pain[ICD10: G89.29] Alexandria Barron MD, [facility] CPT-4: 58477 08/26/2016 ([id number]) 51177 EST. PATIENT, LEVEL III Diagnosis: Localized edema[ICD10: R60.0] Sandra Barron MD, [facility] CPT-4: 95108 02/27/2016 ([id number]) Miscellaneous no charge Diagnosis: Lymphedema, not elsewhere classified[ICD10: I89.0] Sandra Barron MD, [facility] CPT-4: 79442 02/20/2016 ([id number]) 43409 EST. PATIENT, LEVEL III Diagnosis: Contusion of left lower leg, subsequent encounter[ICD10: S80.12XD] Diagnosis: Abrasion of scalp, subsequent encounter[ICD10: S00.01XD] Diagnosis: Laceration without foreign body of left upper arm, subsequent encounter[ICD10: S41.112D] Diagnosis: Localized edema[ICD10: R60.0] Sandra Barron MD, [facility] CPT-4: 26431 02/19/2016 ([id number]) Miscellaneous no charge Diagnosis: Laceration without foreign body of left upper arm, subsequent encounter[ICD10: S41.112D] Diagnosis: Abrasion of scalp, subsequent encounter[ICD10: S00.01XD] Sandra Barron MD , [facility] CPT-4: 50361 02/12/2016 ([id number]) 86893 EST. PATIENT, LEVEL IV Diagnosis: Contusion of left lower leg, initial encounter[ICD10: S80.12XA] Diagnosis: Abrasion of scalp, initial encounter[ICD10: S00.01XA] Diagnosis: Laceration without foreign body of left upper arm, initial encounter[ ICD10: S41.112A] Diagnosis: Localized edema[ICD10: R60.0] Diagnosis: Hypothyroidism, unspecified[ICD10: E03.9] Diagnosis: Essential (primary) hypertension[ICD10: I10] Alexandria Barron MD, [facility] CPT-4: 57548 02/08/2016 ([id number]) 19650 EST. PATIENT, LEVEL IV Diagnosis: Cough[ICD10: R05] Diagnosis: Low back pain[ICD10: M54.5] Diagnosis: Allergic rhinitis due to pollen[ICD10: J30.1] Diagnosis: Acute upper respiratory infection, unspecified[ICD10: J06.9] Diagnosis: Acute bronchitis, unspecified[ICD10: J20.9] Sandra Barron MD, [facility] CPT-4: 36780 11/16/2015 ([id number]) 05376 EST. PATIENT, LEVEL IV Diagnosis: Hypothyroidism, unspecified[ICD10: E03.9] Diagnosis: Lymphedema, not elsewhere classified[ICD10: I89.0] Alexandria Barron MD, [facility] CPT-4: 66766 07/18/2015 75571 EST. PATIENT, LEVEL IV Diagnosis: Contusion of left lower leg, subsequent encounter[ICD10: S80.12XD] Diagnosis: Cellulitis of left lower limb[ICD10: L03.116] Светлана Barron MD, [facility] CPT-4: 53967 06/27/2015 79525 EST. PATIENT, LEVEL III Diagnosis: Contusion of left lower leg, initial encounter[ICD10: S80.12XA] Diagnosis: Cellulitis of left lower limb[ICD10: L03.116] Светлана Barron MD, [facility] CPT-4: 52116 06/19/2015 ([id number]) 20006 EST. 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 PATIENT, LEVEL III Diagnosis: Rosacea, acne[ICD9: 695.3] Diagnosis: Lymphedema[ICD9: 457.1] Sandra Barron MD, [facility] CPT-4: 40934 02/27/2015 ([id number]) 94956 EST. PATIENT, LEVEL III Diagnosis: Right leg swelling[ICD9: 729.81] Alexandria Barron MD, [facility] CPT-4: 64196 01/26/2015 ([id number]) 88972 EST. PATIENT, LEVEL III Diagnosis: CELLULITIS OF LEG[ICD9: 682.6] Mary Ann Barron MD, [facility] CPT-4 : 39428 01/16/2015 ([id number]) OFFICE VISIT, NEW - LEVEL 4 Diagnosis: Back pain[ICD9: 724.5] Diagnosis: Lymphedema[ICD9: 457.1] Diagnosis: Sacroiliitis[ICD9: 720.2] Diagnosis: Chronic pain[ICD9: 338.29] Diagnosis: HYPOTHYROIDISM[ICD9: 244.9] Diagnosis: Dysphagia[ICD9: 787.20] Alexandria Barron MD, [facility] CPT-4: 78761 12/05/2014 Plan of Care Planned Activity Notes [...] further attempt to reduce peripheral edema. 06/22/2018 Patient Education: Patient Medication Summary Completed 06/22/2018 Appointment: Alexandria Barron WPtel: [facility]9 [facility] (15 min) Moderate 05/27/2018 Visit [...] of over-medication. 05/25/2018 Appointment: Alexandria Barron WPtel: [facility]1 [facility] (15 min) Moderate 05/25/2018 Patient Education: Patient Medication Summary Completed 05/25/2018 Patient Education: Back Pain Completed 05/25/2018 Appointment: Светлана Garcia WPtel: [facility] [place] (30 min) Complex 05/15/2018 Visit Plan: Hypertension [...] in clinic. 04/23/2018 Appointment: Alexandria Barron WPtel: [facility] [place] (15 min) Moderate 04/23/2018 Patient Education: Patient [...] request. 04/01/2018 Appointment: Alexandria Barron WPtel: [phone] [place] (15 min) Moderate 04/01/2018 Patient Education: Patient [...] well. 03/18/2018 Appointment: Alexandria Barron WPtel: [phone] [place] (15 min) Moderate 03/18/2018 Patient Education: Patient [...] on buttock. 03/09/2018 Appointment: Alexandria Barron WPtel: [phone] [facility] (15 min) Moderate 03/09/2018 Patient Education: Patient [...] report. 02/12/2018 Appointment: Alexandria Barron WPtel: [phone] [facility] [place] (15 min) Moderate 02/12/2018 Patient Education: Patient Medication Summary Completed 02/12/2018 Visit Plan: Bronchitis- Pt advised to increase fluids, vitamin C. Discussed natural and expected course of this diagnosis and need to alert me if symptoms do not follow expected course, or if any worse. RX sent to patient's pharmacy. 12/26/2017 Appointment: Sandra Mcdonald WPtel: [phone] [phone] [place] (15 min) Moderate 12/26/2017 [...] seated. 12/04/2017 Appointment: Alexandria Barron WPtel: [phone] [facility] (30 min) Complex 12/04/2017 Patient Education: Patient [...] Светлана Garcia WPtel: [phone] [facility] (30 min) Complex 11/13/2017 Patient [...] wound care. 11/06/2017 Appointment: Alexandria Barron WPtel: [phone] [facility] (30 min) Complex 11/06/2017 Patient Education: Patient [...] edema. 10/29/2017 Appointment: Светлана Garcia WPtel: [facility]5 [facility] (15 min) Moderate 10/29/2017 Patient Education: [...] finger stiffness - pennsaid sample 09/04/2017 Appointment: Aleaxndria Barron WPtel: [facility]5 [facility] (15 min) Moderate 09/04/2017 Patient Education: Patient Medication Summary Completed 09/04/2017 Appointment: Светлана Garcia WPtel: [address] [place], [place] [phone] (15 min) Moderate 08/18/2017 Visit Plan: Skin lesion on face - lesion removed with scalpel and dressed with medihoney, pt to RTC in 10 days for treatment of the lesion if not fully resolved. 08/08/2017 Appointment: Alexandria Barron WPtel: [facility]5 [facility] (30 min) Complex 08/08/2017 Patient Education: Patient [...] the consequences of over- medication. 05/29/2017 Appointment: Alexandira Barron WPtel: [phone] [facility] (15 min) Moderate 05/29/2017 Patient Education: Patient Medication Summary Completed 05/29/2017 Appointment: Alexandria Barron WPtel: [phone] [facility] (15 min) Moderate 04/30/2017 Referral: Alberta Wilks [address] [place], [place] [address] Patient informed. Referral info faxed. [...] control. 04/16/2017 Appointment: Alexandria Barron WPtel: [phone] [facility] (15 min) Moderate 04/16/2017 Patient Education: Patient Medication Summary Completed 04/16/2017 Care Plan: Referral Order SNOMED-CT : 439538837 Pending 04/16/2017 Visit Plan: Wound healed - no further treatment at this time. 02/24/2017 Appointment: Nurse Visit 02/24/2017 Patient Education: Patient Medication Summary Completed 02/24/2017 Appointment: Nurse Visit 02/18/2017 Appointment: Светлана Garcia WPtel: [address] [place], [place] [phone] (30 min) Complex 02/14/2017 Visit Plan: Cellulitis - The patient was instructed in appropriate wound care. The patient was instructed to use the antibiotic as per RX. The patient is to call for any change in symptoms, increase in size of the lesion, increase in pain, worsening redness, warmth, discharge. 02/10/2017 Appointment: Светлана Garcia WPtel: [facility] [place] (30 min) Complex 02/10/2017 Patient Education: Patient [...] intake. 01/21/2017 Appointment: Alexandria Barron WPtel: [facility] [place] (15 min) Moderate 01/21/2017 Patient Education: Patient [...] improving. 12/18/2016 Appointment: Alexandria Barron WPtel: [facility]5 [facility] (15 min) Moderate 12/18/2016 Patient Education: Patient [...] specialist 08/26/2016 Appointment: Alexandria Barron WPtel: [facility]5 [facility] (15 min) Moderate 08/26/2016 Patient Education: Patient Medication Summary Completed 08/26/2016 Care Plan: Referral Order SNOMED-CT : [id number] Pending 08/26/2016 Appointment: Sandra Mcdonald WPtel: [facility]5 [phone] [place] (30 min) Complex 03/11/2016 Visit Plan: Edema - improved-pt has been advised to elevate legs to prevent dependent edema, compression has been recommended to help to naturally decrease peripheral edema. Diuretic use has been discussed and pt has been instructed in appropriate use of such medication as necessary to further attempt to reduce peripheral edema. 02/27/2016 Appointment: Sandra Mcdonald WPtel: [address] [place], [place] [phone] [place] (30 min) Complex 02/27/2016 Patient Education: Patient Medication Summary Completed 02/27/2016 Appointment: Nurse Visit 02/20/2016 Patient Education: Patient Medication Summary Completed 02/20/2016 Visit Plan: Abrasion of scalp-healing well-continue wound care as directed Laceration left arm-healing well-continue wound care-may leave open to air Contusion of left dli-ekrbvpzjc-fvgorzam to monitor Edema-elevate legs-follow up tomorrow for quick check of swelling 02/19/2016 Appointment: Sandra Mcdonald WPtel: [phone] [phone] (15 min) Moderate 02/19/2016 Patient Education: Patient [...] edema. 02/08/2016 Appointment: Alexandria Barron WPtel: [phone] [place] (15 min) Moderate 02/08/2016 Patient Education: Patient [...] swelling. 07/18/2015 Appointment: Alexandria Barron WPtel: [phone] [place] (15 min) Moderate 07/18/2015 Patient Education: Patient [...] not improving. 04/03/2015 Appointment: Alexandria Barron WPtel: [phone] [place] [place] (15 min) Moderate 04/03/2015 Patient Education: Patient Medication Summary Completed 04/03/2015 Visit Plan: Rosacea-continue finacea as directed-add metronidazole cream twice daily-call if symptoms do not improve or if any worse. Sipckadtga-msiyvnn-yafpxrso with wraps-no change in treatment 02/27/2015 Appointment: [...] EGD. 12/05/2014 Appointment: Alexandria Barron WPtel: [phone] [place] [place] (S) New Patient 12/05/2014 Patient Education: Patient Medication Summary Completed 12/05/2014 Patient Education: Hypertension Completed 12/05/2014 Referral: Jose A Rios Referral Appointment Requested Referral: Alberta Wilks [address] [facility] [address] [id number] Referral Appointment Requested Referral: Amarjit Veronica WPtel: [phone] [facility] [id number] Referral Appointment Requested Referral: Jayro Wetzel WPtel: [...] do not improve or if any worse. Fvyhyblkis-nnictom-fbozljkn with wraps-no change in treatment . Left [...] leave open to air Contusion of left gld-gwlcmyfxu-jsvnydfy to monitor Edema-elevate legs-follow up tomorrow for quick check of swelling pill spray is called pill glide or [...]
--- OUTSIDE RECORDS SUMMARY | 2018-11-23 16:19 | XMS REPORT | CCD ---
Author Author [facility] Organization [facility] Address [address] [place] [address] Phone Care Team Providers Care [facility] Supervisor Name Role Phone PP Unavailable CCM Unavailable Summary Purpose Interface Exchange Insurance Providers Payer name Policy type / Coverage type Covered constitution party ID Effective Begin Date Effective End Date WPS Medicare Part B Medicare Part B [id number] Unknown Unknown [facility] Medicare Part B [id number] Unknown Unknown Family history Brother Diagnosis Age At Onset Diabetes Unknown Skin cancer Unknown Father Diagnosis Age At Onset Heart disease Unknown Mother Diagnosis Age At Onset advanced age Unknown Hypothyroid Unknown Social History Social History Element Codes Description Effective Dates Marital status Unknown Single 12/05/2014 Number of children Unknown 0 12/05/2014 Employment 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[address]: 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 Quit 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 quit 20-25 [...] ICD-9: V04.81 ICD-10: Z23 Active 04/16/2017 Unknown Essential (primary) hypertension ICD-9: 401.1 ICD-10: I10 Active 02/07/2016 Unknown Low back pain ICD-9: 724.2 ICD-10: M54.5 Active 11/15/2015 Unknown Other chronic pain ICD -9: 338.29 ICD-10: G89.29 Active 08/26/2016 Unknown 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 Active 04/23/2018 Unknown Pain in left knee ICD- 9: 719.46 ICD-10: M25.562 Active 08/26/2016 Unknown Localized edema ICD-9 : 782.3 ICD-10: R60.0 Active 02/26/2016 Unknown Obstructive sleep apnea (adult) (pediatric) ICD-9: [...] immunization ICD-9: V04.81 ICD-10: Z23 04/16/2017 Active Essential (primary) hypertension ICD-9: 401.1 ICD-10: I10 02/07/2016 Active Low back pain ICD-9: 724.2 ICD-10: M54.5 11/15/2015 Active Other chronic pain ICD -9: 338.29 ICD-10: G89.29 08/26/2016 Active 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 04/23/2018 Active Pain in left knee ICD- 9: 719.46 ICD-10: M25.562 08/26/2016 Active Localized edema ICD-9 : 782.3 ICD-10: R60.0 02/26/2016 Active Obstructive sleep apnea (adult) (pediatric) ICD-9: [...] Fill Instructions oxycodone 5 mg tablet RxNorm: 3659138 2 Tablet(s) PO BID 201707/17/2018 Active nadolol 20 mg tablet RxNorm: 144658 1 Tablet(s) TAKE 1 TABLET BY MOUTH EVERY DAY 05/25/2018 No Stop Date Active Generic For:*CORGARD 20 MG TABLET 05/21/2018 10:10: 43 AM spironolactone 50 mg tablet RxNorm: 722312 TAKE 1 TABLET BY MOUTH EVERY DAY 05/21/2018 06/03/2018 Inactive Generic For:ALDACTONE 50MG 05/21/2018 10:10:31 AM Ocuvite tablet RxNorm : 1 Tablet(s) PO BID 05/21/2018 06/03/2018 Inactive pramipexole 0.25 mg tablet RxNorm: 398384 TAKE 1 TABLET BY MOUTH TWICE DAILY 05/21/2018 06/03/2018 Inactive Generic For:MIRAPEX 0.25MG TAB 05/21/2018 10:10:48 AM levothyroxine 88 mcg tablet RxNorm: 930613 TAKE 1 TABLET BY MOUTH EVERY DAY WITH A 100MCG TABLET 05/21/2018 06/03/2018 Inactive Generic For:*SYNTHROID 0.088MG TAB 05/21/2018 10:10:11 AM levothyroxine 100 mcg tablet RxNorm: 004674 TAKE 1 TABLET BY MOUTH EVERY DAY , TAKE WITH AN 88 MCG TABLET 05/21/2018 Inactive Generic For:*SYNTHROID 100 MCG TABLET 05/21/2018 10:10:04 AM Vitamin D3 2,000 unit capsule RxNorm: 637843 1 Capsule(s) PO daily 05/21/2018 No Stop Date Active nadolol 20 mg tablet RxNorm: 894767 TAKE 1/2 TABLET BY MOUTH EVERY DAY 05/21/2018 05/24/2018 Inactive Generic For:*CORGARD 20 MG TABLET 05/21/2018 10:10:43 AM oxycodone 5 mg tablet RxNorm: 3917714 1 Tablet(s) PO QID as needed 05/15/2018 06/13/2018 Inactive pramipexole 0.25 mg tablet RxNorm: 670080 1 Tablet(s) PO BID 05/20/2018 Inactive Requip 0.25 mg tablet RxNorm: 415308 1 Tablet(s) PO BID 201705/03/2018 Inactive Lasix 40 mg tablet RxNorm: 119970 1 Tablet(s) PO daily as needed edema if more than 3 pounds weight loss in 48 hours 04/23/2018 08/20/2018 Active potassium chloride ER 10 mEq tablet,extended release RxNorm: 426004 1 Tablet(s) PO daily as needed when taking lasix 04/23/2018 08/20/2018 Active potassium chloride ER 10 mEq tablet,extended release RxNorm: 038012 1 Tablet(s) PO daily as needed when taking lasix 04/01/2018 04/22/2018 Inactive Lasix 40 mg tablet RxNorm: 008826 1 Tablet(s) PO daily as needed edema 04/01/2018 04/22/2018 Inactive oxycodone 5 mg tablet RxNorm: 1838158 1 Tablet(s) PO QID as needed 03/18/2018 04/16/2018 Inactive levothyroxine 88 mcg tablet RxNorm: 656911 1 Tablet(s) PO daily . Take with 100 mcg tablet. 02/19/2018 05/20/2018 Inactive spironolactone 50 mg tablet RxNorm: 251084 Tablet(s) TAKE 1 TABLET BY MOUTH DAILY 02/19/2018 05/20/2018 Inactive levothyroxine 100 mcg tablet RxNorm: 721097 1 Tablet(s) PO daily . Take with 88 mcg tablet 02/19/2018 02/18/2018 Inactive levothyroxine 88 mcg tablet RxNorm: 867671 1 Tablet(s) PO daily . Take with 100 mcg tablet. 02/19/2018 02/18/2018 Inactive levothyroxine 100 mcg tablet RxNorm: 295475 1 Tablet(s) PO daily . Take with 88 mcg tablet 02/19/2018 05/20/2018 Inactive spironolactone 25 mg tablet RxNorm: 965170 1 Tablet(s) PO daily 02/12/2018 02/18/2018 Inactive pt will let you know when she is ready for the refill oxycodone 10 mg tablet RxNorm: 9170341 1 Tablet(s) PO TID as needed 02/12/2018 03/13/2018 Inactive oxycodone 10 mg tablet RxNorm: 2456039 1 Tablet(s) PO Q6 as needed 01/22/2018 02/11/2018 Inactive spironolactone 50 mg tablet RxNorm: 097226 TAKE 1 TABLET BY MOUTH DAILY 01/05/2018 02/11/2018 Inactive Generic For:ALDACTONE 50MG 01/05/2018 8:27:46 AM Kenalog 40 mg/mL suspension for injection RxNorm: 8314568 1 Milliliter(s) Inj 12/26/2017 12/26/2017 Inactive Zithromax Z-Fransisco 250 mg tablet RxNorm: 628632 1 Tablet(s) PO UD 12/26/2017 12/30/2017 Inactive oxycodone 10 mg tablet RxNorm: 9709586 1 Tablet(s) PO Q6 as needed 11/25/2017 12/24/2017 Inactive nystatin 100,000 unit/gram topical powder RxNorm: 226030 1 Application TOP BID 11/13/2017 No Stop Date Active nystatin 100,000 unit/gram topical cream RxNorm: 930943 Gram(s) TOP QID 11/12/2017 11/18/2017 Inactive nystatin 100,000 unit/gram topical cream RxNorm: 092741 Gram(s) TOP QID 11/12/2017 11/11/2017 Inactive Lasix 20 mg tablet RxNorm: 642903 1 Tablet(s) PO daily as needed edema 11/03/2017 11/07/2017 Inactive potassium chloride ER 10 mEq tablet,extended release RxNorm: 622686 1 Tablet(s) PO daily while on the lasix 11/03/201701/2018 Inactive Keflex 500 mg capsule RxNorm: 153734 1 Capsule(s) PO TID 201711/07/2017 Inactive potassium chloride ER 10 mEq tablet,extended release RxNorm: 560528 1 Tablet(s) PO daily while on the lasix 10/29/2017 Inactive Lasix 20 mg tablet RxNorm: 021468 1 Tablet(s) PO daily as needed edema 10/29/2017 10/31/2017 Inactive oxycodone 10 mg tablet RxNorm: 9609162 1 Tablet(s) PO Q6 as needed 09/29/2017 10/28/2017 Inactive levothyroxine 200 mcg tablet RxNorm: 461094 TAKE 1 TABLET BY MOUTH DAILY 09/01/2017 02/18/2018 Inactive Generic For:*SYNTHROID 0.2MG TAB 09/01/2017 8:36:32 AM Bactrim DS 800 mg-160 mg tablet RxNorm: 415384 1 Tablet(s) PO BID 08/07/2017 08/16/2017 Inactive Bactrim DS 800 mg-160 mg tablet RxNorm: 947676 1 Tablet(s) PO BID 08/07/2017 08/06/2017 Inactive oxycodone 10 mg tablet RxNorm: 9115611 1 Tablet(s) PO Q6 as needed 07/31/2017 08/29/2017 Inactive spironolactone 50 mg tablet RxNorm: 998123 1 Tablet(s) PO daily 06/30/2017 12/26/2017 Inactive Not due for a refill until next month nadolol 20 mg tablet RxNorm: 806344 1 Tablet(s) PO daily 201611/28/2017 Inactive nadolol 20 mg tablet RxNorm: 541084 1/2 Tablet(s) PO daily 11/28/2017 Inactive nadolol 20 mg tablet RxNorm: 674193 1/2 Tablet(s) PO daily 05/21/2017 Inactive oxycodone 10 mg tablet RxNorm: 8092172 1 Tablet(s) PO Q6 as needed 04/01/2017 04/30/2017 Inactive levothyroxine 200 mcg tablet RxNorm: 135139 TAKE 1 TABLET BY MOUTH DAILY 03/10/2017 08/31/2017 Inactive Generic For:*SYNTHROID 0.2MG TAB 03/10/2017 8:49:05 AM potassium chloride ER 10 mEq tablet,extended release RxNorm: 098632 1 Tablet(s) PO daily while on the lasix 02/18/2017 Inactive Lasix 20 mg tablet RxNorm: 633565 1 Tablet(s) PO daily as needed edema 02/18/2017 02/20/2017 Inactive Keflex 500 mg capsule RxNorm: 456918 1 Capsule(s) PO TID 201602/16/2017 Inactive Lasix 20 mg tablet RxNorm: 065821 1 Tablet(s) PO daily 201602/15/2017 Inactive potassium chloride ER 10 mEq tablet,extended release RxNorm: 006989 1 Tablet(s) PO daily while on the lasix 02/14/2017 Inactive Lasix 20 mg tablet RxNorm: 769655 1 Tablet(s) PO daily 201602/13/2017 Inactive potassium chloride ER 10 mEq tablet,extended release RxNorm: 963894 1 Tablet(s) PO daily while on the lasix 02/14/2017 Inactive oxycodone 10 mg tablet RxNorm: 5930272 1 Tablet(s) PO Q6 as needed 02/05/2017 03/06/2017 Inactive minocycline 50 mg tablet RxNorm: 189770 1 Tablet(s) PO Q72H 12/03/2017 Inactive spironolactone 50 mg tablet RxNorm: 617168 1 Tablet(s) PO daily 12/18/2016 06/15/2017 Inactive Not due for a refill until next month oxycodone 10 mg tablet RxNorm: 2516076 1 Tablet(s) PO Q6 as needed 12/05/2016 01/03/2017 Inactive nadolol 20 mg tablet RxNorm: 852837 1 Tablet(s) PO daily 201604/15/2017 Inactive oxycodone 10 mg tablet RxNorm: 1223811 1 Tablet(s) PO Q6 as needed 09/30/2016 10/29/2016 Inactive levothyroxine 200 mcg tablet RxNorm: 397656 TAKE 1 TABLET BY MOUTH DAILY 09/12/2016 03/09/2017 Inactive Generic For:*SYNTHROID 0.2MG TAB 09/12/2016 8:41:27 AM oxycodone 10 mg tablet RxNorm: 1921686 1 Tablet(s) PO Q6 as needed 08/06/2016 09/04/2016 Inactive oxycodone 10 mg tablet RxNorm: 4734910 1 Tablet(s) PO Q6 as needed 06/10/2016 07/09/2016 Inactive oxycodone 10 mg tablet RxNorm: 0641362 1 Tablet(s) PO Q6 as needed 04/05/2016 05/04/2016 Inactive levothyroxine 200 mcg tablet RxNorm: 138593 1 Tablet(s) PO daily 03/14/2016 09/09/2016 Inactive oxycodone 10 mg tablet RxNorm: 1557680 1 Tablet(s) PO Q6 as needed 02/08/2016 03/08/2016 Inactive Kenalog 40 mg/mL suspension for injection RxNorm: 4849699 Milliliter(s) Inj 11/16/2015 11/16/2015 Inactive Zithromax Z-Fransisco 250 mg tablet RxNorm: 758894 1 Tablet(s) PO UD 11/16/2015 11/20/2015 Inactive zpack, take probiotic while on abx oxycodone 10 mg tablet RxNorm: 1485947 1 Tablet(s) PO Q6 as needed 11/16/2015 02/07/2016 Inactive ceftriaxone 500 mg solution for injection RxNorm: 6065167 Inj 11/16/2015 11/16/2015 Inactive oxycodone 10 mg tablet RxNorm: 1472065 1 Tablet(s) PO Q6 as needed 10/11/2015 11/15/2015 Inactive levothyroxine 200 mcg tablet RxNorm: 106514 1 Tablet(s) PO daily 09/14/2015 03/11/2016 Inactive oxycodone 10 mg tablet RxNorm: 3341478 1 Tablet(s) PO Q6 as needed 08/10/2015 10/10/2015 Inactive Keflex 500 mg capsule RxNorm: 156763 1 Capsule(s) PO TID 201407/03/2015 Inactive Keflex 500 mg capsule RxNorm: 765545 1 Capsule(s) PO TID 201406/25/2015 Inactive oxycodone 10 mg tablet RxNorm: 2447854 1 Tablet(s) PO Q6 as needed 04/03/2015 08/09/2015 Inactive oxycodone 10 mg tablet RxNorm: 6483964 1 Tablet(s) PO Q6 as needed 02/14/2015 04/02/2015 Inactive Keflex 500 mg capsule RxNorm: 002859 1 Capsule(s) PO TID 201401/22/2015 Inactive Culturelle 10 billion cell capsule RxNorm: 208583 1 Capsule(s) PO daily 01/16/2015 02/14/2015 Inactive Dulcolax Stool Softener (docusate) 100 mg capsule RxNorm: 8266799 1 Capsule(s) PO daily 12/05/2014 02/11/2018 Inactive [SAVINGS FOR NON-COVERED DRUGS -- BIN:113023, PCN: [id number], Group: [id number], ID# [id number], Questions: . THIS IS NOT INSURANCE.] Restasis 0.05 % eye drops in a dropperette RxNorm: 083456 1 Drop(s) OPH BID No Start Date Active Vitamin D3 2,000 unit capsule RxNorm: 788675 1 Capsule(s) PO daily No Start Date 05/20/2018 Inactive minocycline 50 mg tablet RxNorm: 844358 1 Tablet(s) PO QHS No Start Date 01/20/2017 Inactive nadolol 20 mg tablet RxNorm: 301230 1 Tablet(s) PO daily No Start Date 11/05/2016 Inactive nadolol 20 mg tablet RxNorm: 998283 1 Tablet(s) PO daily No Start Date 11/05/2016 Inactive Ocuvite tablet RxNorm : 1 Tablet(s) PO BID No Start Date 05/20/2018 Inactive oxycodone 10 mg tablet RxNorm: 5648723 1 Tablet(s) PO Q6 as needed No Start Date 02/13/2015 Inactive Dulcolax Stool Softener (docusate) 100 mg capsule RxNorm: 6569556 1 Capsule(s) PO BID No Start Date 12/04/2014 Inactive Multivitamin 50 Plus tablet RxNorm: 1 Tablet(s) PO QAM No Start Date 02/11/2018 Inactive Finacea 15 % topical gel RxNorm: 7348939 TOP No Start Date 05/24/2018 Inactive Synthroid 200mcg Oral RxNorm: oral No Start Date 09/13/2015 Inactive spironolactone 50 mg tablet RxNorm: 302975 1 Tablet(s) PO daily No Start Date 12/17/2016 Inactive spironolactone 50 mg tablet RxNorm: 898826 1 Tablet(s) PO daily No Start Date 02/11/2018 Inactive Medication Administered Medication Codes Instructions Start Date Status Kenalog 40 mg/mL suspension for injection RxNorm: 2979662 1Milliliter 12/26/2017 No longer Active ceftriaxone 500 mg solution for injection RxNorm: 7327485 11/16/2015 No longer Active Kenalog 40 mg/mL suspension for injection RxNorm: 7447418 Milliliter 11/16/2015 No longer Active Immunizations Vaccine Codes Date Status Influenza CVX: 141 04/23/2018 completed Influenza CVX: 141 04/16/2017 completed Influenza CVX: 141 08/26/2016 completed Assessments Condition Codes Effective Dates Low back pain ICD-10: M54.5 ICD-9: 724.2 05/25/2018 Atrophy of thyroid (acquired) ICD-10: E03.4 ICD-9: 244.8 05/25/2018 Other chronic pain ICD-10: G89.29 ICD-9: 338.29 05/25/2018 Pain in left knee ICD-10: M25.562 ICD-9: 719.46 05/25/2018 Essential (primary) hypertension ICD-10: I10 ICD-9: 401.1 05/25/2018 Encounter for immunization ICD-10: Z23 ICD-9: V04.81 04/23/2018 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 ICD-9: 287.49 04/23/2018 Obstructive sleep apnea (adult) (pediatric) ICD-10: G47.33 ICD-9: 327.23 04/01/2018 Localized edema ICD-10: R60.0 ICD-9: 782.3 04/01/2018 Unsteadiness on feet ICD-10: R26.81 ICD-9: [...] Visit Reason For Visit Effective Dates Notes edema 05/25/2018 edema 04/23/2018 edema 04/01/2018 edema [...] Item Item Code Result Date Free T4 Rhe307 FREE T4 1.92 ng/dL 04/24/2018 Tsh Ord6 TSH (3rd IS) 0.11 uIU/mL 04/24/2018 Cbc With Differential Ord2 WBC 3.08 K/ul 04/24/2018 Cbc With Differential Ord2 RBC 3.89 M/ul 04/24/2018 Cbc With Differential Ord2 HGB 12.1 g/dl 04/24/2018 Cbc With Differential Ord2 HCT 36.3 % 04/24/2018 Cbc With Differential Ord2 Neut% 54.2 % 04/24/2018 Cbc With Differential Ord2 Lymph% 32.5 % 04/24/2018 Cbc With Differential Ord2 MCV 93.3 fl 04/24/2018 Cbc With Differential Ord2 MCH 31.1 pg 04/24/2018 Cbc With Differential Ord2 [place]% 13.0 % 04/24/2018 Cbc With Differential Ord2 MCHC 33.3 pg 04/24/2018 Cbc With Differential Ord2 Eos% 0.3 % 04/24/2018 Cbc With Differential Ord2 Baso% 0.0 % 04/24/2018 Cbc With Differential Ord2 PLT 55 K/ul 04/24/2018 Cbc With Differential Ord2 RDW 15.3 % 04/24/2018 Cbc With Differential Ord2 Neut ABS# 1.67 K/ul 04/24/2018 Cbc With Differential Ord2 Lymph ABS# 1.00 K/ul 04/24/2018 Cbc With Differential Ord2 [place] ABS# 0.4 K/ul 04/24/2018 Cbc With Differential Ord2 Eos ABS# 0.0 K/ul 04/24/2018 Cbc With Differential Ord2 Baso ABS# 0.0 K/ul 04/24/2018 Comp Metabolic Bev962 NA 138 mEq/L 04/24/2018 Comp Metabolic Xtf704 K 3.9 mEq/L 04/24/2018 Comp Metabolic Uyc555 CL 97 mEq/L 04/24/2018 Comp Metabolic Dzl359 CO2 32.0 mEq/L 04/24/2018 Comp Metabolic Upp436 ANION GAP 13 04/24/2018 Comp Metabolic Dva522 GLUCOSE 194 mg/dL 04/24/2018 Comp Metabolic Hvz112 Creat 0.8 mg/dL 04/24/2018 Comp Metabolic Wpp076 eGFR 70 ml/min/1.73m2 04/24/2018 Comp Metabolic Nhj097 BUN 20 mg/dL 04/24/2018 Comp Metabolic Sng523 B/C Ratio 24.1 Ratio 04/24/2018 Comp Metabolic Kcm107 CALCIUM 9.4 mg/dL 04/24/2018 Comp Metabolic Hlh934 ALK PHOS 110 U/L 04/24/2018 Comp Metabolic Hby011 AST(SGOT) 33 U/L 04/24/2018 Comp Metabolic Fqy950 ALT(SGPT) 16 U/L 04/24/2018 Comp Metabolic Occ221 BILI T 1.8 mg/dL 04/24/2018 Comp Metabolic Trb635 ALBUMIN 4.0 g/dL 04/24/2018 Comp Metabolic Ddr381 TPRO 5.7 g/dL 04/24/2018 Comp Metabolic Tev084 GLOB 1.7 g/dL 04/24/2018 Comp Metabolic Ivz972 A/G Ratio 2.3 Ratio 04/24/2018 Comp Metabolic Zan845 Osmo 284 mOsmo 04/24/2018 Tsh Ord6 TSH (3rd IS) 0.07 uIU/mL 02/13/2018 Free T4 Vea219 FREE T4 1.85 ng/dL 02/13/2018 %Hba1C Nfk613 % HbA1c 70249-3 5.9 % 01/21/2017 %Hba1C Jsw460 Gluc Ave 123 mg/dL 01/21/2017 Comp Metabolic Gnr121 NA 136 mEq/L 01/21/2017 Comp Metabolic Bws980 K 4.3 mEq/L 01/21/2017 Comp Metabolic Ktp244 CL 99 mEq/L 01/21/2017 Comp Metabolic Jxq755 CO2 30.0 mEq/L 01/21/2017 Comp Metabolic Qcn282 ANION GAP 11 01/21/2017 Comp Metabolic Umr440 GLUCOSE 234 mg/dL 01/21/2017 Comp Metabolic Tyn379 Creat 0.5 mg/dL 01/21/2017 Comp Metabolic Yrv311 eGFR 115 ml/min/1.73m2 01/21/2017 Comp Metabolic Ibh560 BUN 10 mg/dL 01/21/2017 Comp Metabolic Ymw640 B/C Ratio 18.5 Ratio 01/21/2017 Comp Metabolic Leq646 CALCIUM 8.8 mg/dL 01/21/2017 Comp Metabolic Rxy321 ALK PHOS 74 U/L 01/21/2017 Comp Metabolic Koy099 AST(SGOT) 28 U/L 01/21/2017 Comp Metabolic Hxa191 ALT(SGPT) 15 U/L 01/21/2017 Comp Metabolic Ync129 BILI T 1.1 mg/dL 01/21/2017 Comp Metabolic Zsw976 ALBUMIN 3.8 g/dL 01/21/2017 Comp Metabolic Acr179 TPRO 5.8 g/dL 01/21/2017 Comp Metabolic Vls271 GLOB 2.0 g/dL 01/21/2017 Comp Metabolic Piz025 A/G Ratio 1.9 Ratio 01/21/2017 Comp Metabolic Rda373 Osmo 279 mOsmo 01/21/2017 Tsh Ord6 hTSH II 0.80 uIU/mL 04/03/2015 Bili D Ord93 BILI D 0.1 mg/dL 04/03/2015 Bili D Ord93 BILI I 0.9 mg/dL 04/03/2015 Free T4 Ydn674 FREE T4 1.27 ng/dL 04/03/2015 Cbc With [...] Ord2 RDW 15.6 % 04/03/2015 Comp Metabolic Ztu265 NA 136 mEq/L 04/03/2015 Comp Metabolic Jpo545 K 4.3 mEq/L 04/03/2015 Comp Metabolic Gyz790 CL 99 mEq/L 04/03/2015 Comp Metabolic Pnd826 CO2 29.0 mEq/L 04/03/2015 Comp Metabolic Jts948 ANION GAP 12 04/03/2015 Comp Metabolic Awc451 GLUCOSE 120 mg/dL 04/03/2015 Comp Metabolic Frr853 Creat 0.5 mg/dL 04/03/2015 Comp Metabolic Dby582 eGFR 118 ml/min/1.73m2 04/03/2015 Comp Metabolic Jqi463 BUN 11 mg/dL 04/03/2015 Comp Metabolic Qaa003 B/C Ratio 20.8 Ratio 04/03/2015 Comp Metabolic Mxu759 CALCIUM 9.3 mg/dL 04/03/2015 Comp Metabolic Gzw415 ALK PHOS 61 U/L 04/03/2015 Comp Metabolic Tku153 AST(SGOT) 28 U/L 04/03/2015 Comp Metabolic Eyc800 ALT(SGPT) 16 U/L 04/03/2015 Comp Metabolic Oou592 BILI T 1.0 mg/dL 04/03/2015 Comp Metabolic Gao044 ALBUMIN 4.1 g/dL 04/03/2015 Comp Metabolic Jcv795 TPRO 6.1 g/dL 04/03/2015 Comp Metabolic Mld522 GLOB 2.0 g/dL 04/03/2015 Comp Metabolic Euu911 A/G Ratio 2.1 Ratio 04/03/2015 Comp Metabolic Loi862 Osmo 273 mOsmo 04/03/2015 Review of Systems [...] appearance 12/04/2017 None Full Exam - General 1995 Ears/Nose/Throat lips/teeth/gingiva Overall: benign lips 12/04/2017 None [...] FLU VACC PRSV FREE INC ANTIG CPT-4: 94651 04/23/2018 TRIAMCINOLONE ACET INJ NOS CPT-4: J3301 12/26/2017 ADMIN INFLUENZA VIRUS VAC CPT-4: G0008 04/16/2017 FLU VACC PRSV FREE INC ANTIG CPT-4: 64387 04/16/2017 TRIAMCINOLONE ACET INJ NOS CPT-4: J3301 11/16/2015 ROCEPHIN, PER 250 MG CPT-4: J0696 11/16/2015 Vital Signs Date Vital 05/25/2018 Blood Pressure 1: 118/60 Code : 8480-6 BMI: 23.6 Code : 22399-8 Heart Rate 1 : 59 bpm Height: 5'1" Respiratory Rate: 18 bpm SpO2: 99% Temperature: 37.0 (C) / 98.6 (F ) Weight: 125 lbs 04/23/2018 Blood Pressure 2: 118/62 Code : 8480-6 BMI: 22.3 Code : 83900-8 Heart Rate 1 : 73 bpm Height: 5'1" SpO2: 97% Weight: 118 lbs 04/01/2018 Blood Pressure 1: 136/72 Code : 8480-6 BMI: 26.6 Code : 79322-9 Heart Rate 1 : 75 bpm Height: 5'1" SpO2: 98% Weight: 141 lbs 03/18/2018 Blood Pressure 1: 132/62 Code : 8480-6 Heart Rate 1: 61 bpm Height: 5'1" SpO2: 96% Weight: 03/09/2018 Blood Pressure 1: 122/60 Code : 8480-6 Heart Rate 1: 65 bpm Height: 5'1" SpO2: 98% Weight: 02/12/2018 Blood Pressure 1: 100/68 Code : 8480-6 BMI: 24.3 Code : 28917-0 Heart Rate 1 : 68 bpm Height: 5'1" SpO2: 96% Weight: 128 lbs 13 oz 12/26/2017 Blood Pressure 1: 126/68 Code : 8480-6 BMI: 26.7 Code : 23599-6 Heart Rate 1 : 66 bpm Height: 5'1" SpO2: 98% Temperature: 36.8 (C) / 98.2 (F) Weight: 141 lbs 8 oz 12/04/2017 Blood Pressure 1: 132/76 Code : 8480-6 BMI: 26.5 Code : 57686-8 Heart Rate 1 : 73 bpm Height: 5'1" SpO2: 96% Weight: 140 lbs 11/13/2017 Blood Pressure 1: 126/62 Code : 8480-6 Heart Rate 1: 69 bpm Height: 5'1" SpO2: 96% Weight: 11/06/2017 Blood Pressure 1: 142/84 Code : 8480-6 BMI: 25.7 Code : 92740-8 Heart Rate 1 : 78 bpm Height: 5'1" SpO2: 95% Temperature: 36.9 (C) / 98.5 (F) Weight: 136 lbs 10/29/2017 Blood Pressure 1: 132/68 Code : 8480-6 BMI: 26.8 Code : 79290-5 Heart Rate 1 : 70 bpm Height: 5'1" SpO2: 98% Weight: 142 lbs 09/04/2017 Blood Pressure 1: 132/74 Code : 8480-6 BMI: 25.9 Code : 46909-7 Heart Rate 1 : 68 bpm Height: 5'1" SpO2: 96% Weight: 137 lbs 08/08/2017 Blood Pressure 1: 118/72 Code : 8480-6 BMI: 26.6 Code : 54966-7 Heart Rate 1 : 68 bpm Height: 5'1" SpO2: 95% Weight: 141 lbs 05/29/2017 Blood Pressure 1: 142/78 Code : 8480-6 BMI: 26.3 Code : 83059-4 Heart Rate 1 : 65 bpm Height: 5'1" SpO2: 95% Weight: 139 lbs 04/16/2017 Blood Pressure 1: 136/62 Code : 8480-6 BMI: 27.4 Code : 31995-2 Heart Rate 1 : 38 bpm Height: 5'1" SpO2: 98% Weight: 145 lbs 02/10/2017 Blood Pressure 1: 124/70 Code : 8480-6 BMI: 27.4 Code : 19091-5 Heart Rate 1 : 70 bpm Height: 5'1" SpO2: 96% Weight: 145 lbs 01/21/2017 Blood Pressure 1: 120/70 Code : 8480-6 BMI: 27.2 Code : 22294-7 Heart Rate 1 : 65 bpm Height: 5'1" SpO2: 95% Weight: 144 lbs 12/18/2016 Blood Pressure 1: 122/74 Code : 8480-6 BMI: 27.4 Code : 31573-6 Heart Rate 1 : 66 bpm Height: 5'1" SpO2: 97% Weight: 145 lbs 08/26/2016 Blood Pressure 1: 110/64 Code : 8480-6 BMI: 28.0 Code : 17061-8 Heart Rate 1 : 67 bpm Height: 5'1" SpO2: 97% Weight: 148 lbs 02/27/2016 Blood Pressure 1: 126/74 Code : 8480-6 Heart Rate 1: 67 bpm Height: 5'1" SpO2: 97% 02/19/2016 Blood Pressure 1: 130/80 Code : 8480-6 BMI: 28.2 Code : 06448-0 Heart Rate 1 : 74 bpm Height: 5'1" SpO2: 96% Weight: 149 lbs 02/08/2016 Blood Pressure 1: 122/78 Code : 8480-6 BMI: 28.2 Code : 98969-0 Heart Rate 1 : 63 bpm Height: 5'1" SpO2: 96% Weight: 149 lbs 11/16/2015 Blood Pressure 1: 128/70 Code : 8480-6 BMI: 27.8 Code : 04984-4 Heart Rate 1 : 64 bpm Height: 5'1" SpO2: 97% Weight: 147 lbs 07/18/2015 Blood Pressure 1: 110/60 Code : 8480-6 BMI: 28.5 Code : 45803-2 Heart Rate 1 : 61 bpm Height: 5'1" SpO2: 97% Weight: 151 lbs 06/27/2015 Blood Pressure 1: 122/60 Code : 8480-6 BMI: 28.9 Code : 43285-4 Heart Rate 1 : 63 bpm Height: 5'1" SpO2: 95% Weight: 153 lbs 06/19/2015 Blood Pressure 1: 120/78 Code : 8480-6 Heart Rate 1: 68 bpm SpO2: 96% Weight: 154 lbs 04/03/2015 Blood Pressure 1: 128/68 Code : 8480-6 BMI: 29.1 Code : 20243-0 Heart Rate 1 : 70 bpm Height: 5'1" SpO2: 97% Weight: 154 lbs 02/27/2015 Blood Pressure 1: 122/84 Code : 8480-6 BMI: 29.5 Code : 96235-2 Heart Rate 1 : 67 bpm Height: 5'1" SpO2: 95% Weight: 156 lbs 01/26/2015 Blood Pressure 1: 132/70 Code : 8480-6 BMI: 30.2 Code : 32801-8 Heart Rate 1 : 76 bpm Height: 5'1" Weight: 160 lbs 01/16/2015 Blood Pressure 1: 140/70 Code : 8480-6 BMI: 30.0 Code : 88969-1 Heart Rate 1 : 78 bpm Height: 5'1" Respiratory Rate: 20 bpm Weight: 159 lbs 12/05/2014 Blood Pressure 1: 138/78 Code : 8480-6 BMI: 30.8 Code : 53781-2 Heart Rate 1 : 76 bpm Height: 5'1" Weight: 163 lbs Functional Status No Functional Status data History of Present Illness Symptom Name Status Result Effective Date Notes edema Quality improving 05/25/2018 None edema Quality [...] data Encounters Encounter Performer Location Codes Date ( [id number] EST. PATIENT, LEVEL IV Diagnosis: Atrophy of thyroid (acquired)[ICD10: E03.4] Diagnosis: Essential (primary) hypertension[ICD10: I10] Diagnosis: Other chronic pain[ICD10: G89.29] Diagnosis: Pain in left knee[ICD10: M25.562] Diagnosis: Low back pain[ICD10: M54.5] [facility] CPT- 4: 36661 05/25/2018 ([id number]) 11214 EST. PATIENT, LEVEL IV Diagnosis: Atrophy of thyroid (acquired)[ICD10: E03.4] Diagnosis: Essential (primary) hypertension[ICD10: I10] Diagnosis: Other chronic pain[ICD10: G89.29] Diagnosis: Pain in left knee[ICD10: M25.562] Diagnosis: Low back pain[ICD10: M54.5] Diagnosis: Other secondary thrombocytopenia[ICD10: D69.59] Diagnosis: Encounter for immunization[ICD10: Z23] [facility] CPT-4: 22039 04/23/2018 ([id number]) [id number] EST. PATIENT, LEVEL IV Diagnosis: Essential (primary) hypertension[ICD10: I10] Diagnosis: Low back pain[ICD10: M54.5] Diagnosis: Localized edema[ICD10: R60.0] Diagnosis: Other chronic pain[ICD10: G89.29] Diagnosis: Obstructive sleep apnea (adult) (pediatric)[ICD10: G47.33] [facility] CPT-4: 45663 04/01/2018 [id number]) 32128 EST. PATIENT, LEVEL IV Diagnosis: Essential (primary) hypertension[ICD10: I10] Diagnosis: Other chronic pain[ICD10: G89.29] Diagnosis: Unsteadiness on feet[ICD10: R26.81] [facility] CPT-4: 07373 03/18/2018 ([id number]) 75882 EST. PATIENT, LEVEL IV Diagnosis: Low back pain[ICD10: M54.5] Diagnosis: Localized edema[ICD10: R60.0] Diagnosis: Essential (primary) hypertension[ICD10: I10] Diagnosis: Other chronic pain[ICD10: G89.29] Diagnosis: Pressure ulcer of left buttock, stage 1[ICD10: L89.321] Diagnosis: Obstructive sleep apnea (adult) (pediatric)[ICD10: G47.33] Alexandria Barron MD , [facility] CPT-4: 97556 03/09/2018 ([id number]) 80323 EST. PATIENT, LEVEL IV Diagnosis: Atrophy of thyroid (acquired)[ICD10: E03.4] Diagnosis: Essential (primary) hypertension[ICD10: I10] Diagnosis: Localized edema[ICD10: R60.0] Diagnosis: Other chronic pain[ICD10: G89.29] Alexandria Barron MD, [facility] CPT-4: 17449 02/12/2018 ([id number]) 19550 EST. PATIENT, LEVEL III Diagnosis: Cough[ICD10: R05] Diagnosis: Acute bronchitis, unspecified[ICD10: J20.9] Sandra Barron MD, [facility] CPT-4: 86194 12/26/2017 ([id number]) 37878 EST. PATIENT, LEVEL IV Diagnosis: Essential (primary) hypertension[ICD10: I10] Diagnosis: Other specified noninfective disorders of lymphatic vessels and lymph nodes[ICD10: I89.8] Diagnosis: Atrophy of thyroid (acquired)[ICD10: E03.4] Alexandria Barron MD, [facility] CPT-4: 29084 12/04/2017 17076 EST. PATIENT, LEVEL III Diagnosis: Candidiasis of skin and nail[ICD10: B37.2] Светлана Barron MD, [facility] CPT-4: 51559 11/13/2017 ([id number]) 91910 EST. PATIENT, LEVEL III Diagnosis: Lymphedema, not elsewhere classified[ICD10: I89.0] Diagnosis: Low back pain[ICD10: M54.5] Diagnosis: Localized edema[ICD10: R60.0] Alexandria Barron MD, [facility] CPT- 4: 18806 11/06/2017 ([id number]) Miscellaneous no charge Diagnosis: Localized edema[ICD10: R60.0] Diagnosis: Cellulitis of right lower limb[ICD10: L03.115] Diagnosis: Cellulitis of left lower limb[ICD10: L03.116] Светлана Barron MD, [facility] CPT-4: 71623 11/03/2017 51053 EST. PATIENT, LEVEL III Diagnosis: Cellulitis of left lower limb[ICD10: L03.116] Diagnosis: Localized edema[ICD10: R60.0] Светлана Barron MD, [facility] CPT-4 : 60479 10/29/2017 ([id number]) 37990 EST. PATIENT, LEVEL IV Diagnosis: Essential (primary) hypertension[ICD10: I10] Diagnosis: Atrophy of thyroid (acquired)[ICD10: E03.4] Diagnosis: Pain in left knee[ICD10: M25.562] Diagnosis: Stiffness of left hand, not elsewhere classified[ICD10: M25.642] Diagnosis: Stiffness of right hand, not elsewhere classified[ICD10: M25.641] Alexandria Braron MD, [facility] CPT-4: 60194 09/04/2017 ([id number]) 06610 EST. PATIENT, LEVEL III Diagnosis: Other viral warts[ICD10: B07.8] Diagnosis: Other skin changes[ICD10: R23.8] Alexandria Barron MD, [facility] CPT-4: 69774 08/08/2017 ([id number]) 20435 EST. PATIENT, LEVEL IV Diagnosis: Essential (primary) hypertension[ICD10: I10] Diagnosis: Atrophy of thyroid (acquired)[ICD10: E03.4] Diagnosis: Low back pain[ICD10: M54.5] Alexandria Barron MD, [facility] CPT- 4: 05027 05/29/2017 ([id number]) 38267 EST. PATIENT, LEVEL IV Diagnosis: Essential (primary) hypertension[ICD10: I10] Diagnosis: Atrophy of thyroid (acquired)[ICD10: E03.4] Diagnosis: Encounter for immunization[ICD10: Z23] Diagnosis: Sick sinus syndrome[ICD10: I49.5] Alexandria Barron MD, [facility] CPT-4: 53923 04/16/2017 ([id number]) Miscellaneous no charge Diagnosis: Cellulitis of left lower limb[ICD10: L03.116] Светлана Barron MD [facility] CPT-4: 16897 02/24/2017 99809 EST. PATIENT, LEVEL III Diagnosis: Cellulitis of left lower limb[ICD10: L03.116] Diagnosis: Cellulitis of right lower limb[ICD10: L03.115] Светлана Barron MD [facility] CPT-4: 58557 02/10/2017 ([id number]) 23122 EST. PATIENT, LEVEL IV Diagnosis: Essential (primary) hypertension[ICD10: I10] Diagnosis: Other abnormal glucose[ICD10: R73.09] Diagnosis: Localized edema[ICD10: R60.0] Alexandria Barron MD [facility] CPT- 4: 10011 01/21/2017 76575 EST. PATIENT, LEVEL IV Diagnosis: Essential (primary) hypertension[ICD10: I10] Diagnosis: Pain in left knee[ICD10: M25.562] Diagnosis: Atrophy of thyroid (acquired)[ICD10: E03.4] Alexandria Barron MD, [facility] CPT-4: 84481 12/18/2016 ([id number]) 46710 EST. PATIENT, LEVEL IV Diagnosis: Essential (primary) hypertension[ICD10: I10] Diagnosis: Pain in left knee[ICD10: M25.562] Diagnosis: Other instability, left knee[ICD10: M25.362] Diagnosis: Other chronic pain[ICD10: G89.29] Alexandria Barron MD, [facility] CPT-4: 78997 08/26/2016 ([id number]) 08202 EST. PATIENT, LEVEL III Diagnosis: Localized edema[ICD10: R60.0] Sandra Barron MD, [facility] CPT-4: 81775 02/27/2016 ([id number]) Miscellaneous no charge Diagnosis: Lymphedema, not elsewhere classified[ICD10: I89.0] Sandra Barron MD, [facility] CPT-4: 44367 02/20/2016 ([id number]) 57951 EST. PATIENT, LEVEL III Diagnosis: Contusion of left lower leg, subsequent encounter[ICD10: S80.12XD] Diagnosis: Abrasion of scalp, subsequent encounter[ICD10: S00.01XD] Diagnosis: Laceration without foreign body of left upper arm, subsequent encounter[ICD10: S41.112D] Diagnosis: Localized edema[ICD10: R60.0] Sandra Barron MD, [facility] CPT-4: 52439 02/19/2016 ([id number]) Miscellaneous no charge Diagnosis: Laceration without foreign body of left upper arm, subsequent encounter[ICD10: S41.112D] Diagnosis: Abrasion of scalp, subsequent encounter[ICD10: S00.01XD] Sandra Barron MD , [facility] CPT-4: 45387 02/12/2016 ([id number]) 93325 EST. PATIENT, LEVEL IV Diagnosis: Contusion of left lower leg, initial encounter[ICD10: S80.12XA] Diagnosis: Abrasion of scalp, initial encounter[ICD10: S00.01XA] Diagnosis: Laceration without foreign body of left upper arm, initial encounter[ ICD10: S41.112A] Diagnosis: Localized edema[ICD10: R60.0] Diagnosis: Hypothyroidism, unspecified[ICD10: E03.9] Diagnosis: Essential (primary) hypertension[ICD10: I10] Alexandria Barron MD, [facility] CPT-4: 50856 02/08/2016 ([id number]) 24144 EST. PATIENT, LEVEL IV Diagnosis: Cough[ICD10: R05] Diagnosis: Low back pain[ICD10: M54.5] Diagnosis: Allergic rhinitis due to pollen[ICD10: J30.1] Diagnosis: Acute upper respiratory infection, unspecified[ICD10: J06.9] Diagnosis: Acute bronchitis, unspecified[ICD10: J20.9] Sandra Barron MD, [facility] CPT-4: 92590 11/16/2015 ([id number]) 56870 EST. PATIENT, LEVEL IV Diagnosis: Hypothyroidism, unspecified[ICD10: E03.9] Diagnosis: Lymphedema, not elsewhere classified[ICD10: I89.0] Aleaxndria Barron MD, [facility] CPT-4: 86116 07/18/2015 78534 EST. PATIENT, LEVEL IV Diagnosis: Contusion of left lower leg, subsequent encounter[ICD10: S80.12XD] Diagnosis: Cellulitis of left lower limb[ICD10: L03.116] Светлана Barron MD, [facility] CPT-4: 33890 06/27/2015 64879 EST. PATIENT, LEVEL III Diagnosis: Contusion of left lower leg, initial encounter[ICD10: S80.12XA] Diagnosis: Cellulitis of left lower limb[ICD10: L03.116] Светлана Barron MD, [facility] CPT-4: 42761 06/19/2015 ([id number]) 55972 EST. 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 PATIENT, LEVEL III Diagnosis: Rosacea, acne[ICD9: 695.3] Diagnosis: Lymphedema[ICD9: 457.1] Sandra Barron MD, [facility] CPT-4: 31896 02/27/2015 ([id number]) 11501 EST. PATIENT, LEVEL III Diagnosis: Right leg swelling[ICD9: 729.81] Alexandria Barron MD, [facility] CPT-4: 49181 01/26/2015 ([id number]) 52122 EST. PATIENT, LEVEL III Diagnosis: CELLULITIS OF LEG[ICD9: 682.6] Mary Ann Barron MD, [facility] CPT-4 : 89217 01/16/2015 ([id number]) OFFICE VISIT, NEW - LEVEL 4 Diagnosis: Back pain[ICD9: 724.5] Diagnosis: Lymphedema[ICD9: 457.1] Diagnosis: Sacroiliitis[ICD9: 720.2] Diagnosis: Chronic pain[ICD9: 338.29] Diagnosis: HYPOTHYROIDISM[ICD9: 244.9] Diagnosis: Dysphagia[ICD9: 787.20] Alexandria Barron MD, [facility] CPT-4: 41955 12/05/2014 Plan of Care Planned Activity Notes Codes Status Date Appointment: [phone] ([facility] min[facility] Moderate 05/27/2018 Visit Plan: Hypertension [...] of over-medication. 05/25/2018 Appointment: [phone] (15 min) Moderate 05/25/2018 Patient Education: Patient [...] clinic. 04/23/2018 Appointment: Alexandria Barron WPtel: [phone] [facility] (15 min) Moderate 04/23/2018 Patient Education: [...] pt request. 04/01/2018 Appointment: Alexandria Barron WPtel: [facility] (15 min) Moderate 04/01/2018 Patient Education: [...] well. 03/18/2018 Appointment: Alexandria Bar[facility]el[phone] (15 min) Moderate 03/18/2018 Patient Education: Patient [...] on buttock. 03/09/2018 Appointment: Alexandria Bar[facility]el[phone] (15 min) Moderate 03/09/2018 Patient Education: Patient [...] on average per her report. 02/12/2018 Appointment: [place] W[place]el: [phone] [facility] (15 min) Moderate 02/12/2018 Patient Education: Patient Medication Summary Completed 02/12/2018 Visit Plan: Bronchitis- Pt advised to increase fluids, vitamin C. Discussed natural and expected course of this diagnosis and need to alert me if symptoms do not follow expected course, or if any worse. RX sent to patient's pharmacy. 12/26/2017 Appointment: Sandra Mcdonald WPtel: [phone] [phone] [place] (15 min) Moderate 12/26/2017 [...] when seated. 12/04/2017 Appointment: Alexandria Barron WPtel: [facility] [place] (30 min) Complex 12/04/2017 Patient [...] warmth, discharge. 11/13/2017 Appointment: Светлана Garcia WPtel: [phone] [facility] (30 min) Complex 11/13/2017 Patient [...] wound care. 11/06/2017 Appointment: Alexandria Bar[facility]el[phone] (30 min) Complex 11/06/2017 Patient Education: Patient [...] peripheral edema. 10/29/2017 App[facility]ment[facility]а [phone] ([facility]) Moderate 10/29/2017 Patient Education: Patient [...] sample 09/04/2017 Appointment: Alexandria Barron WPtel: [phone] [facility] (15 min) Moderate 09/04/2017 Patient Education: Patient Medication Summary Completed 09/04/2017 Appointment: Светлана Garcia WPtel: [phone] [facility] [place] (15 min) Moderate 08/18/2017 Visit Plan: Skin lesion on face - lesion removed with scalpel and dressed with medihoney, pt to RTC in 10 days for treatment of the lesion if not fully resolved. 08/08/2017 Appointment: Alexandria Barron WPtel: [phone] [facility] (30 min) Complex 08/08/2017 Patient Education: [...] over- medication. 05/29/2017 Appointment: Alexandria Barron [facility]Ptel: [phone] [place] (15 min) Moderate 05/29/2017 Patient Education: Patient Medication Summary Completed 05/29/2017 Appointment: Alexandria Barron WPtel: [phone] [facility] [place] (15 min) Moderate 04/30/2017 Referral: Alberta Wilks [address] [place], [place] [address] Patient informed. Referral info faxed. Completed 04/28/2017 [...] of control. 04/16/2017 Appointment: Alexandria Barron WPtel: [address] [place], [place] [phone] (15 min) Moderate 04/16/2017 Patient Education: Patient Medication Summary Completed 04/16/2017 Care Plan: Referral Order SNOMED-CT : [id number] Pending 04/16/2017 Visit Plan: Wound healed - no further treatment at this time. 02/24/2017 Appointment: Nurse Visit 02/24/2017 Patient Education: Patient Medication Summary Completed 02/24/2017 Appointment: Nurse Visit 02/18/2017 Appointment: Светлана Garcia WPtel: [address] [place], [place] [phone] (30 min) Complex 02/14/2017 Visit Plan: Cellulitis - The patient was instructed in appropriate wound care. The patient was instructed to use the antibiotic as per RX. The patient is to call for any change in symptoms, increase in size of the lesion, increase in pain, worsening redness, warmth, discharge. 02/10/2017 Appointment: Светлана Garcia WPtel: [address] [place], [place] [phone] (30 min) Complex [...] chocolate intake. 01/21/2017 Appointment: Alexandria Barron WPtel: [phone] [facility] (15 min) Moderate 01/21/2017 Patient Education: [...] not improving. 12/18/2016 Appointment: Alexandria Barron WPtel: [phone] [facility] (15 min) Moderate 12/18/2016 Patient Education: [...] specialist 08/26/2016 Appointment: Alexandria Barron WPtel: [phone] [facility] [place] (15 min) Moderate 08/26/2016 Patient Education: Patient Medication Summary Completed 08/26/2016 Care Plan: Referral Order SNOMED-CT : [id number] Pending 08/26/2016 Appointment: Sandra Mcdonald WPtel: [phone] (30 min) Complex 03/11/2016 Visit Plan: Edema - improved-pt has been advised to elevate legs to prevent dependent edema, compression has been recommended to help to naturally decrease peripheral edema. Diuretic use has been discussed and pt has been instructed in appropriate use of such medication as necessary to further attempt to reduce peripheral edema. 02/27/2016 Appointment: Sandra Mcdonald WPtel: [phone] (30 min) Complex 02/27/2016 Patient Education: Patient Medication Summary Completed 02/27/2016 Appointment: Nurse Visit 02/20/2016 Patient Education: Patient Medication Summary Completed 02/20/2016 Visit Plan: Abrasion of scalp-healing well-continue wound care as directed Laceration left arm-healing well-continue wound care-may leave open to air Contusion of left ypx-qckdnthoc-mrnrkazs to monitor Edema-elevate legs-follow up tomorrow for quick check of swelling 02/19/2016 Appointment: Sandra Mcdonald WPtel: [phone] (15 min) Moderate 02/19/2016 Patient Education: Patient [...] peripheral edema. 02/08/2016 Appointment: Alexandria Barron WPtel: [phone] (15 min) Moderate 02/08/2016 Patient Education: Patient [...] of swelling. 07/18/2015 Appointment: Alexandria Barron WPtel: [phone] [facility] (15 min) Moderate 07/18/2015 Patient Education: Patient [...] not improving. 04/03/2015 Appointment: Alexandria Barron WPtel: [facility] (15 min) Moderate 04/03/2015 Patient Education: Patient Medication Summary Completed 04/03/2015 Visit Plan: Rosacea-continue finacea as directed-add metronidazole cream twice daily-call if symptoms do not improve or if any worse. Hvauyxhtnj-xbuvgco-uuivwhfw with wraps-no change in treatment 02/27/2015 Appointment: [...] EGD. 12/05/2014 Appointment: Alexandria Barron WPtel: [phone] [facility] [place] (S) New Patient 12/05/2014 Patient Education: Patient Medication Summary Completed 12/05/2014 Patient Education: Hypertension Completed 12/05/2014 Referral: Jose A Rios Referral Appointment Requested Referral: [facility]ks [address] [facility] Referral Appointment Requested Referral: Amarjit Veronica WPtel: [phone] [facility] Referral Appointment Requested Referral: Jayro Wetzel [...] finish antibiotic course, call if not improving. pill spray is [...] day on average per her report. . Wound healed - no further treatment [...] the consequences of over-medication. . Cellulitis - The patient was instructed [...] do not improve or if any worse. Knxywlqnoe-psggxqi-seysveao with wraps-no change in treatment . Hypertension [...] to further attempt to reduce peripheral edema. Cream twice a day x 3 days, [...] discharge. Keep appt with wound care. . Edema - improved-pt has been advised to elevate legs to prevent dependent edema, compression has been recommended to help to naturally decrease peripheral edema. Diuretic use has been discussed and pt has been instructed in appropriate use of such medication as necessary to further attempt to reduce peripheral edema. . Dressing change-return tomorrow . Abrasion of scalp-healing well-continue wound care as directed Laceration left arm-healing well-continue wound care-may leave open to air Contusion of left mih-hjmqmbeqh-mfsjduow to monitor Edema-elevate legs-follow up tomorrow for quick check of swelling . Skin lesion on face - lesion [...]
--- OUTSIDE RECORDS SUMMARY | 2018-11-23 16:28 | XMS REPORT | Continuity of Care Document ---
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..] DEAN MD Ot 278.00 07/26/2014 DIANNE ORTEGA, JRAA-NOBLE Ot 280.9 07/26/2014 DIANNE ORTEGA, JARA-NOBLE Ot [...] ORTEGA, JARA-NOBLE Ot 280.9 07/27/2014 DIANNE ORTEGA, MAREK-NOBLE Ot [...] ORTEGA, JARA-NOBLE Ot 287.5 11/16/2014 DIANNE ORTEGA, JRAA-NOBLE Ot 311 11/16/2014 DIANNE ORTEGA, JARA-NOBLE Ot 346.90 11/16/2014 DIANNE ORTEGA, JARA-NOBLE Ot 571.5 11/16/2014 DIANNE ORTEGA, JARA-NOBLE Ot 572.3 11/16/2014 DIANNE ORTEGA, JARA-NOBLE Ot 780.57 11/16/2014 DIANNE ORTEGA, JARA-NOBLE Ot 789.2 11/16/2014 DIANNE ORTEGA, JARA-NOBLE Ot V10.3 11/16/2014 DIANNE ORTEGA, GUILLE Ot V45.71 11/16/2014 DIANNE ORTEGA, GUILLE Ot [...] DIANNE ORTEGA, GUILLE Ot 311 12/31/2014 DIANNE ORETGA, GUILLE Ot 346.90 12/31/2014 DIANNE ORTEGA, GUILLE Ot 571.5 12/31/2014 DIANNE ORTEGA, GUILLE Ot 572.3 12/31/2014 DIANNE ORTEGA, GUILLE Ot 780.57 12/31/2014 DIANNE ORTEGA, GUILLE Ot 789.2 12/31/2014 DIANNE ORTEGA, GUILLE Ot V10.3 12/31/2014 DIANNE ORTEGA, GUILLE Ot V45.71 12/31/2014 DIANNE ORTEGA, GUILLE Ot V58.69 12/31/2014 DIANNE ORTEGA, GUILLE Ot V87.41 01/20/2015 DIANEN ORTEGA, GUILLE Ot 173.42 01/20/2015 DIANNE ORTEGA, GUILLE Ot 244.9 01/20/2015 DIANNE ORTEGA, GUILLE Ot 278.00 01/20/2015 DIANNE ORTEGA, MAREK-NOBLE Ot 280.9 01/20/2015 DIANNE ORTEGA, MAREK-NOBLE Ot 287.5 01/20/2015 DIANNE ORTEGA, GUILLE Ot 311 01/20/2015 DIANNE ORTEGA, GUILLE Ot 346.90 01/20/2015 DIANNE ORTEGA, GUILLE Ot 571.5 01/20/2015 DIANNE ORTEGA, GUILLE Ot 572.3 01/20/2015 DIANNE ORTEGA, GUILLE [...] ORTEGA, MAREK-NOBLE Ot 346.90 01/27/2015 DIANNE ORTEGA, MAREK-NOBLE Ot 571.5 01/27/2015 DIANNE ORTEGA, MAREK-NOBLE Ot 572.3 01/27/2015 DIANNE ORTEGA, MAREK-NOBLE Ot 780.57 01/27/2015 DIANNE ORTEGA, GUILLE Ot 789.2 01/27/2015 GUILLE DEAN MD Ot [...] DEAN MD Ot 244.9 HYPOTHYROIDISM NOS 02/13/2015 GUILLE DEAN MD Ot 278.00 OBESITY, NOS 02/13/2015 GUILLE DEAN MD Ot 280.9 IRON DEFIC ANEMIA NOS 02/13/2015 GUILLE DEAN MD Ot 287.5 THROMBOCYTOPENIA NOS 02/13/2015 GUILLE DEAN MD Ot 311 DEPRESSIVE DISORDER NEC 02/13/2015 GUILLE DEAN MD Ot 346.90 MIGRAINE UNSPECIFIED [...] PERSONAL HISTORY OF ANTINEOPLASTIC CHEMO 03/17/2015 FELICIANO CNATOR MD Ot 571.5 03/23/2015 FELICIANO CANTOR MD Ot 571.5 07/05/2015 DIANNE ORTEGA, MAREK-NOBLE Ot 173.42 07/05/2015 DIANNE ORTEGA, JARA-NOBLE Ot 244.9 07/05/2015 DIANNE ORTEGA, JARA-NOBLE Ot 278.00 07/05/2015 DIANNE ORTEGA, JARA-NOBLE Ot 280.9 07/05/2015 DIANNE ORTEGA, JARA-NOBLE Ot 287.5 07/05/2015 DIANNE ORTEGA, JARA-NOBLE Ot 311 07/05/2015 DIANNE ORTEGA, JARA-NBOLE Ot 346.90 07/05/2015 DIANNE ORTEGA, JARA-NOBLE Ot 571.5 07/05/2015 DIANNE ORTEGA, JARA-NOBLE Ot 572.3 07/05/2015 DIANNE ORTEGA, JARA-NOBLE Ot 780.57 07/05/2015 DIANNE ORTEGA, JARA-NOBLE Ot 789.2 07/05/2015 DIANNE ORTEGA, JARA-NOBLE Ot V10.3 07/05/2015 DIANNE ORTEGA, JARA-NOBLE Ot V45.71 07/05/2015 DIANNE ORTEGA, AJRA-NOBLE Ot V58.69 07/05/2015 DIANNE ORTEGA, JARA-NOBLE Ot [...] GUILLE Ot Z90.10 09/21/2015 DIANNE ORTEGA, GUILLE Dimas Z92.21 10/09/2015 DIANNE ORTEGA, GUILLE Dimas 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 10/09/2015 DIANNE ORTEGA, GUILLE Ot D50.9 IRON DEFICIENCY ANEMIA, UNSPECIFIED 10/09/2015 DIANNE ORTEGA, GUILLE Dimas D69.6 THROMBOCYTOPENIA, UNSPECIFIED 10/09/2015 DIANNE ORTEGA, GUILLE Ot E03.9 HYPOTHYROIDISM, UNSPECIFIED 10/09/2015 DIANNE ORTEGA, GUILLE [...] Z92.21 PERSONAL HISTORY OF ANTINEOPLASTIC CHEMO 01/26/2016 XUN GUILLE ORTEGA Ot C44.42 SQUAMOUS CELL CARCINOMA OF SKIN [...] G47.30 SLEEP APNEA, UNSPECIFIED 01/26/2016 GUILLE DEAN MD, Ot K76.6 PORTAL HYPERTENSION 01/26/2016 GUILLE DEAN [...] Ot E66.9 OBESITY, UNSPECIFIED 02/08/2016 GUILLE DEAN MD, Ot F32.9 MAJOR DEPRESSIVE [...] COMPL, TYPE II OR UNSPEC TY 02/10/2016 MACK ORTEGA, CLARKE Mayer Ot V72.84 EXAM PRE-OPERATIVE NOS 02/10/2016 GUILLE DEAN MD Ot 174.9 MALIGN NEOPL BREAST NOS 02/10/2016 GUILLE DEAN MD, Ot V76.11 SCRN MAMMO-HIGH RISK PT, MALIGNANT NEOPL 02/10/2016 CHRISTINA CROSS DEOILING MACHINE OPERATOR Ot 729.5 PAIN IN LIMB 02/10/2016 CHRISTINA CROSS DEOILING MACHINE OPERATOR Ot 729.81 SWELLING OF LIMB 02/10/2016 SAKSHI [...] Ot K76.6 PORTAL HYPERTENSION 02/10/2016 GUILLE DEAN MD, Ot R16.1 SPLENOMEGALY, NOT ELSEWHERE CLASSIFIED 02/10/2016 GUILLE DEAN MD Ot Z85.3 PERSONAL HISTORY OF MALIGNANT NEOPLASM O 02/10/2016 GUILLE DEAN MD Ot Z90.10 ACQUIRED ABSENCE OF UNSPECIFIED BREAST A 02/10/2016 GUILLE DEAN MD Ot Z92.21 PERSONAL HISTORY OF ANTINEOPLASTIC CHEMO 02/10/2016 GUILLE DEAN MD Ot Z12.31 ENCNTR SCREEN [...] Ot E66.9 OBESITY, UNSPECIFIED 03/26/2016 GUILLE DEAN MD Ot F32.9 MAJOR DEPRESSIVE DISORDER, SINGLE EPISOD 03/26/2016 GUILLE DEAN MD Ot G43.909 MIGRAINE, UNSP, [...] HISTORY OF ANTINEOPLASTIC CHEMO 04/04/2016 GUILLE DEAN MD Ot 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 04/04/2016 GUILLE DEAN MD, Ot D50.9 IRON DEFICIENCY ANEMIA, UNSPECIFIED 04/04/2016 GUILLE DEAN MD Ot D69.6 THROMBOCYTOPENIA, UNSPECIFIED 04/04/2016 GUILLE DEAN MD Ot E03.9 HYPOTHYROIDISM, UNSPECIFIED 04/04/2016 GUILLE DEAN MD Ot E66.9 OBESITY, UNSPECIFIED 04/04/2016 GUILLE DEAN [...] HISTORY OF ANTINEOPLASTIC CHEMO 09/30/2016 PALMIRA CARLOS DEOILING MACHINE OPERATOR Ot M17.12 UNILATERAL PRIMARY OSTEOARTHRITIS, LEFT 10/03/2016 [...] DEPRESSIVE DISORDER, SINGLE EPISOD 10/03/2016 GUILLE DEAN MD, Ot G43.909 MIGRAINE, UNSP, NOT INTRACTABLE, WITHOUT 10/03/2016 GUILLE DEAN MD, Ot G47.30 SLEEP APNEA, UNSPECIFIED 10/03/2016 GUILLE DEAN MD, Ot K76.6 PORTAL HYPERTENSION 10/03/2016 GUILLE DEAN MD, Ot R16.1 SPLENOMEGALY, NOT ELSEWHERE CLASSIFIED 10/03/2016 GUILLE DEAN MD, Ot Z85.3 PERSONAL HISTORY OF MALIGNANT NEOPLASM O 10/03/2016 GUILLE DEAN MD Ot Z90.10 ACQUIRED ABSENCE OF UNSPECIFIED BREAST A 10/03/2016 GUILLE DEAN MD, Ot Z92.21 PERSONAL HISTORY [...] F32.9 MAJOR DEPRESSIVE DISORDER, SINGLE EPISOD 11/19/2016 GULILE DEAN MD Ot G43.909 MIGRAINE, UNSP, NOT [...] COMPL, TYPE II OR UNSPEC TY 01/28/2017 MACK ORTEGA, CLARKE Mayer Ot V72.84 EXAM PRE-OPERATIVE NOS 01/28/2017 DIANNE ORTEGA, GUILLE Ot 174.9 MALIGN NEOPL BREAST NOS 01/28/2017 GUILLE DEAN MD Ot V76.11 SCRN MAMMO-HIGH RISK PT, MALIGNANT NEOPL 01/28/2017 CHRISTINA CROSS DEOILING MACHINE OPERATOR Ot 729.5 PAIN IN LIMB 01/28/2017 CHRISTINA CROSS DEOILING MACHINE OPERATOR Ot 729.81 SWELLING OF LIMB 01/28/2017 SAKSHI [...] IRON DEFICIENCY ANEMIA, UNSPECIFIED 02/28/2017 GUILLE DEAN MD, Ot D69.6 THROMBOCYTOPENIA, UNSPECIFIED 02/28/2017 GUILLE DEAN MD, Ot E03.9 HYPOTHYROIDISM, UNSPECIFIED 02/28/2017 GUILLE DEAN MD Ot E66.9 OBESITY, UNSPECIFIED 02/28/2017 GUILLE DEAN MD, Ot F32.9 MAJOR DEPRESSIVE [...] DEPRESSIVE DISORDER, SINGLE EPISOD 03/04/2017 GUILLE DEAN MD, Ot G43.909 MIGRAINE, UNSP, [...] HISTORY OF ANTINEOPLASTIC CHEMO 03/06/2017 GUILLE DEAN MD, Ot 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 03/06/2017 GULILE DEAN MD Ot D50.9 IRON DEFICIENCY ANEMIA, [...] ACQUIRED ABSENCE OF UNSPECIFIED BREAST A 04/15/2017 UGILLE DEAN MD Ot Z92.21 PERSONAL HISTORY [...] 729.81 SWELLING OF LIMB 05/20/2017 SAKSHI ORTEGA, ROLANDA Ot 571.5 CIRRHOSIS OF LIVER NOS 05/20/2017 [...] Ot R01.2 OTHER CARDIAC SOUNDS 05/20/2017 RIAN LEMUSC, ALI FACP CCDS Ot K74.69 OTHER CIRRHOSIS [...] CCDS Ot I25.10 ATHSCL HEART DISEASE OF [place] CORONARY 06/03/2017 RIAN ORTEGA FACC, ALI FACP CCDS Ot I70.0 ATHEROSCLEROSIS OF [place] 06/03/2017 RIAN ORTEGA FACC, ALI FACP CCDS Ot K74.60 UNSPECIFIED CIRRHOSIS OF LIVER 06/03/2017 RIAN ORTEGA FACC, ALI FACP CCDS Ot K76.9 LIVER DISEASE, UNSPECIFIED 06/03/2017 RIAN ORTEGA FACC, ALI FACP CCDS Ot Z79.899 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 06/03/2017 RIAN ORTEGA FACC, ALI FACP CCDS Ot Z85.3 PERSONAL HISTORY OF MALIGNANT NEOPLASM O 06/03/2017 RIAN ORTEGA FACC, ALI FACP CCDS Ot Z87.891 PERSONAL HISTORY OF NICOTINE DEPENDENCE 06/04/2017 RIAN ORTEGA FACC, ALI FACP CCDS Ot K74.69 OTHER CIRRHOSIS OF LIVER 06/04/2017 RIAN ORTEGA FACC, ALI FACP CCDS Ot R00.1 BRADYCARDIA, UNSPECIFIED 06/04/2017 RIAN ORTEGA FACC, ALI FACP CCDS Ot R01.2 OTHER CARDIAC SOUNDS 06/06/2017 RIAN ORTEGA FACC, ALI FACP CCDS Ot K74.69 OTHER CIRRHOSIS OF LIVER 06/06/2017 RIAN ORTEGA FACC, ALI FACP CCDS Ot R00.1 BRADYCARDIA, UNSPECIFIED 06/06/2017 RIAN ORTEGA FACC, ALI FACP CCDS Ot R01.2 OTHER CARDIAC SOUNDS 06/11/2017 RIAN ORTEGA FACC, ALI FACP CCDS Ot K74.69 OTHER CIRRHOSIS OF LIVER 06/11/2017 RIAN ORTEGA FACC, ALI FACP CCDS Ot R00.1 BRADYCARDIA, UNSPECIFIED 06/11/2017 RIAN ORTEGA FACC, ALI FACP CCDS Ot R01.2 OTHER CARDIAC SOUNDS 06/12/2017 RIAN ORTEGA FACC, ALI FACP CCDS Ot K74.69 OTHER CIRRHOSIS OF LIVER 06/12/2017 RIAN ORTEGA FACC, ALI FACP CCDS Ot R00.1 BRADYCARDIA, UNSPECIFIED 06/12/2017 RIAN ORTEGA FACC, ALI FACP CCDS Ot R01.2 OTHER CARDIAC SOUNDS 06/19/2017 RIAN ORTEGA FACC, ALI FACP CCDS Ot D69.6 THROMBOCYTOPENIA, UNSPECIFIED 06/19/2017 RIAN ORTEGA FACC, ALI FACP CCDS Ot E03.9 HYPOTHYROIDISM, UNSPECIFIED 06/19/2017 RIAN ORTEGA FACC, ALI FACP CCDS Ot E66.9 OBESITY, UNSPECIFIED 06/19/2017 RIAN ROTEGA FACC, ALI FACP CCDS Ot G43.909 MIGRAINE, UNSP, NOT INTRACTABLE, WITHOUT 06/19/2017 RIAN ORTEGA FACC, ALI FACP CCDS Ot G47.33 OBSTRUCTIVE SLEEP APNEA (ADULT) (PEDIATR 06/19/2017 RIAN ORTEGA FACC, ALI FACP CCDS Ot I25.10 ATHSCL HEART DISEASE OF [place] CORONARY 06/19/2017 RIAN ORTEGA FACC, ALI FACP CCDS Ot I70.0 ATHEROSCLEROSIS OF [place] 06/19/2017 RIAN ORTEGA FACC, ALI FACP CCDS Ot K74.60 UNSPECIFIED CIRRHOSIS OF LIVER 06/19/2017 RIAN ORTEGA FACC, ALI FACP CCDS Ot K76.9 LIVER DISEASE, UNSPECIFIED 06/19/2017 RIAN ORTEGA FACC, ALI FACP CCDS Ot Z79.899 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 06/19/2017 RIAN ORTEGA FACC, [...] CCDS Ot I25.10 ATHSCL HEART DISEASE OF [place] CORONARY 2017 RIAN ORTEGA FACC, ALI FACP CCDS Ot I70.0 ATHEROSCLEROSIS OF [place] 2017 RIAN ORTEGA FACC, ALI FACP CCDS Ot K74.60 UNSPECIFIED CIRRHOSIS OF LIVER 2017 RIAN ORTEGA FACC, ALI FACP CCDS Ot K76.9 LIVER DISEASE, UNSPECIFIED 2017 RIAN ORTEGA FACC, ALI FACP CCDS Ot Z79.899 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 2017 RIAN ORTEGA FACC, [...] D69.6 THROMBOCYTOPENIA, UNSPECIFIED 07/18/2017 RIAN ORTEGA FACC, ALI FACP CCDS Ot E03.9 HYPOTHYROIDISM, UNSPECIFIED 07/18/2017 RIAN ORTEGA FACC, ALI FACP CCDS Ot E66.9 OBESITY, UNSPECIFIED 07/18/2017 RIAN ORTEGA FACC, ALI FACP CCDS Ot G43.909 MIGRAINE, UNSP, NOT INTRACTABLE, WITHOUT 07/18/2017 RIAN ORTEGA FACC, ALI FACP CCDS Ot G47.33 OBSTRUCTIVE SLEEP APNEA (ADULT) (PEDIATR 07/18/2017 RIAN LEMUSC, ALI FACP CCDS Ot I25.10 ATHSCL HEART DISEASE OF [place] CORONARY 07/18/2017 RIAN ORTEGA FACC, ALI FACP CCDS Ot I70.0 ATHEROSCLEROSIS OF [place] 07/18/2017 RIAN ORTEGA FACC, ALI FACP CCDS Ot K74.60 UNSPECIFIED CIRRHOSIS OF LIVER 07/18/2017 RIAN ORTEGA FACC, ALI FACP CCDS Ot K76.9 LIVER DISEASE, UNSPECIFIED 07/18/2017 RIAN ORTEGA FACC, ALI FACP CCDS Ot Z79.899 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 07/18/2017 RIAN ORTEGA [facility] CCDS Ot Z85.3 PERSONAL HISTORY OF MALIGNANT NEOPLASM O 07/18/2017 RIAN ORTEGA [facility] CCD[facility] Ot Z87.891 PERSONAL HISTORY OF NICOTINE [...] HISTORY OF MALIGNANT NEOPLASM O 08/26/2017 GUILLE EDAN MD Ot Z90.10 ACQUIRED ABSENCE [...] MAJOR DEPRESSIVE DISORDER, SINGLE EPISOD 10/15/2017 GUILLE DAEN MD Ot G43.909 MIGRAINE, UNSP, NOT INTRACTABLE, WITHOUT 10/15/2017 GUILLE DEAN MD Ot G47.30 SLEEP APNEA, UNSPECIFIED 10/15/2017 GUILLE DEAN MD Ot K76.6 PORTAL HYPERTENSION 10/15/2017 GUILLE DEAN MD Ot R16.1 SPLENOMEGALY, NOT ELSEWHERE CLASSIFIED 10/15/2017 GUILLE DEAN MD, Ot Z85.3 PERSONAL HISTORY [...] BEST VERBAL RESPONSE, ORIENT 10/30/2017 ARAMIS RIVERA MD, Ot R40.2362 COMA SCALE, BEST MOTOR RESPONSE, OBEYS C 10/30/2017 ARAMIS RIVERA MD Ot S00.03XA CONTUSION OF SCALP, INITIAL ENCOUNTER 10/30/2017 ARAMIS RIVERA MD Ot W01.198A FALL SAME LEV FROM SLIP/TRIP W STRIKE AG 10/30/2017 ARAMIS RIVERA MD Ot Y92.[address] OF OCCURRENCE O 10/30/2017 ARAMIS RIVERA MD, Ot Z85.3 PERSONAL HISTORY OF MALIGNANT NEOPLASM O 10/30/2017 ARAMIS RIVERA MD Ot Z87.19 PERSONAL HISTORY OF OTHER DISEASES OF TH 10/30/2017 ARAMIS RIVERA MD Ot Z87.891 PERSONAL HISTORY OF NICOTINE DEPENDENCE 10/30/2017 ARAMIS RIVERA MD Ot Z88.2 ALLERGY STATUS TO SULFONAMIDES STATUS 11/05/2017 UVALDO FAJARDO MD Ot D64.9 ANEMIA, UNSPECIFIED 11/05/2017 UVALDO FAJARDO MD Ot D69.6 THROMBOCYTOPENIA, UNSPECIFIED 11/05/2017 UVALDO FAJARDO MD Ot D72.819 DECREASED WHITE BLOOD CELL COUNT, UNSPEC 11/05/2017 UVALDO FAJARDO MD Ot E03.9 HYPOTHYROIDISM, UNSPECIFIED 11/05/2017 VUALDO FAJARDO MD Ot G47.30 SLEEP APNEA, UNSPECIFIED [...] TYPE II OR UNSPEC TY 11/06/2017 MACK OTREGA, CLARKE Mayer Ot V72.84 EXAM PRE-OPERATIVE NOS 11/06/2017 GUILLE DEAN MD Ot 174.9 MALIGN NEOPL BREAST NOS 11/06/2017 GUILLE DEAN MD Ot V76.11 SCRN MAMMO-HIGH RISK PT, MALIGNANT NEOPL 11/06/2017 CHRISTINA CROSS Ot 729.5 PAIN IN LIMB 11/06/2017 CHRISTINA CROSS DEOILING MACHINE OPERATOR Ot 729.81 SWELLING OF LIMB 11/06/2017 SAKSHI ORTEGA, FELICIANO Ocasio Ot 571.5 CIRRHOSIS OF LIVER NOS 11/06/2017 GUILLE DEAN MD, Ot Z12.31 ENCNTR SCREEN MAMMOGRAM FOR MALIGNANT NE 11/06/2017 DENISE ORTEGA, CHRISTOPHER Ocasio Ot Z48.00 ENCOUNTER FOR CHANGE OR REMOVAL OF NONSU 11/06/2017 GUILLE DEAN MD, Ot Z12.31 ENCNTR [...] IRON DEFICIENCY ANEMIA, UNSPECIFIED 11/06/2017 GUILLE DEAN MD, Ot D69.6 THROMBOCYTOPENIA, UNSPECIFIED 11/06/2017 GUILLE DEAN MD Ot E03.9 HYPOTHYROIDISM, UNSPECIFIED 11/06/2017 GUILLE DEAN MD Ot E66.9 OBESITY, UNSPECIFIED 11/06/2017 GUILLE DEAN MD Ot F32.9 MAJOR DEPRESSIVE DISORDER, SINGLE EPISOD 11/06/2017 GUILLE DEAN MD Ot G43.909 MIGRAINE, UNSP, NOT INTRACTABLE, WITHOUT 11/06/2017 GUILLE DEAN MD, Ot G47.30 SLEEP APNEA, UNSPECIFIED 11/06/2017 GUILLE DEAN MD Ot K76.6 PORTAL HYPERTENSION 11/06/2017 GUILLE DEAN MD Ot R16.1 SPLENOMEGALY, NOT ELSEWHERE CLASSIFIED 11/06/2017 GUILLE DEAN MD, Ot Z85.3 PERSONAL HISTORY OF MALIGNANT NEOPLASM O 11/06/2017 GUILLE DEAN MD Ot Z90.10 ACQUIRED ABSENCE OF UNSPECIFIED BREAST A 11/06/2017 GUILLE DEAN MD, Ot Z92.21 PERSONAL HISTORY OF ANTINEOPLASTIC CHEMO 11/06/2017 DENISE ORTEGA, CHRISTOPHER Ocasio Ot R60.0 LOCALIZED EDEMA 11/07/2017 UVALDO FAJARDO [...] CHRISTOPHER Ocasio Ot R60.0 LOCALIZED EDEMA 11/11/2017 BAILEE URIBE MD Ot I50.9 HEART FAILURE, UNSPECIFIED 11/11/2017 BAILEE URIBE MD Ot I70.242 ATHSCL [place] ARTERIES OF LEFT LEG W ULC 11/11/2017 BAILEE URIBE MD Ot I87.321 CHRONIC VENOUS HYPERTENSION W INFLAMMATI 11/11/2017 BAILEE URIBE MD Ot I87.332 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 11/11/2017 BAILEE URIBE MD Ot I89.0 LYMPHEDEMA, NOT ELSEWHERE CLASSIFIED 11/11/2017 BAILEE URIBE MD Ot 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 11/12/2017 CHRISTOPHER WALKER MD Ot R60.0 LOCALIZED EDEMA 11/18/2017 BAILEE URIBE [...] 12/02/2017 BAILEE URIBE MD Ot I70.242 ATHSCL [place] ARTERIES OF LEFT LEG W ULC 12/02/2017 [...] 12/10/2017 BAILEE URIBE MD Ot I70.242 ATHSCL [place] ARTERIES OF LEFT LEG W ULC 12/10/2017 [...] OF LEFT CALF LIMIT 12/25/2017 BAILEE URIBE MD, Ot I50.9 HEART FAILURE, UNSPECIFIED 12/25/2017 BAILEE [...] I89.0 LYMPHEDEMA, NOT ELSEWHERE CLASSIFIED 01/14/2018 BAILEE URIEB MD, Ot 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 01/21/2018 BAILEE URIBE MD, Ot I50.9 HEART FAILURE, UNSPECIFIED 01/21/2018 BAILEE URIBE MD Ot I87.321 CHRONIC VENOUS [...] DEPRESSIVE DISORDER, SINGLE EPISOD 02/23/2018 GUILLE DEAN MD Ot G47.30 SLEEP APNEA, UNSPECIFIED 02/23/2018 GUILLE DEAN MD Ot K74.60 UNSPECIFIED CIRRHOSIS OF LIVER 02/23/2018 GUILLE DEAN MD Ot K76.0 FATTY (CHANGE OF) LIVER, NOT ELSEWHERE C 02/23/2018 GUILLE DEAN MD, Ot K76.6 PORTAL HYPERTENSION 02/23/2018 GUILLE DEAN MD, Ot R16.1 SPLENOMEGALY, NOT ELSEWHERE CLASSIFIED 02/23/2018 GUILLE DEAN MD, Ot Z79.899 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 02/23/2018 GUILLE DEAN MD, Ot Z85.3 PERSONAL HISTORY OF MALIGNANT NEOPLASM O 02/23/2018 GUILLE DEAN MD, Ot Z85.828 PERSONAL HISTORY [...] Ot Z98.1 ARTHRODESIS STATUS 02/25/2018 GUILLE DEAN MD, Ot D69.59 OTHER SECONDARY THROMBOCYTOPENIA 02/25/2018 GUILLE [...] 02/25/2018 GUILLE DEAN MD, Ot Z79.899 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 02/25/2018 GUILLE DEAN MD, Ot Z85.3 PERSONAL HISTORY OF MALIGNANT NEOPLASM O 02/25/2018 GUILLE DEAN MD, Ot Z85.828 PERSONAL HISTORY OF OTHER MALIGNANT NEOP 02/25/2018 GUILLE DEAN MD, Ot Z90.10 ACQUIRED ABSENCE OF UNSPECIFIED BREAST A 02/25/2018 HARVEY DEAN MDNOBLE Ot Z92.21 PERSONAL HISTORY OF ANTINEOPLASTIC CHEMO 02/26/2018 CHRISTOPHER WALKER MD Ot A41.9 SEPSIS, UNSPECIFIED ORGANISM 02/26/2018 CHRISTOPHER WALKER MD Ot D64.9 ANEMIA, UNSPECIFIED 02/26/2018 CHRISTOPHER WALKER MD Ot D69.6 THROMBOCYTOPENIA, UNSPECIFIED 02/26/2018 CHRISTOPHER WALKER MD Ot D72.819 DECREASED WHITE BLOOD CELL COUNT, UNSPEC 02/26/2018 CHRISTOPHER WALKER MD Ot E03.9 HYPOTHYROIDISM, UNSPECIFIED 02/26/2018 CHRISTOPHER WALKER MD Ot E78.00 PURE HYPERCHOLESTEROLEMIA, UNSPECIFIED 02/26/2018 CHRISTOPHER [...] WALKER MD Ot Z98.1 ARTHRODESIS STATUS 02/26/2018 CHRISTOPHER WALKER MD Ot A41.9 SEPSIS, UNSPECIFIED ORGANISM 02/26/2018 CHRISTOPHER WALKER MD Ot D64.9 ANEMIA, UNSPECIFIED 02/26/2018 CHRISTOPHER WALKER MD Ot D69.6 THROMBOCYTOPENIA, UNSPECIFIED 02/26/2018 CHRISTOPHER WALKER MD Ot D72.819 DECREASED WHITE [...] WALKER MD Ot Z98.1 ARTHRODESIS STATUS 04/29/2018 DIANNE ORTEGA, GUILLE Ot D69.59 OTHER SECONDARY THROMBOCYTOPENIA 04/29/2018 GUILLE [...] 04/29/2018 GUILLE DEAN MD Ot Z79.899 OTHER ALF (CURRENT) DRUG THERAPY 04/29/2018 GUILLE DEAN MD [...] 04/30/2018 GUILLE DEAN MD Ot Z79.899 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 04/30/2018 GUILLE DEAN MD, Ot Z85.3 PERSONAL HISTORY OF MALIGNANT NEOPLASM O 04/30/2018 GUILLE DEAN MD Ot Z85.828 PERSONAL HISTORY OF OTHER MALIGNANT NEOP 04/30/2018 GUILLE DEAN MD Ot Z90.10 ACQUIRED ABSENCE [...] ABSENCE OF LEFT BREAST AND NIPP 05/27/2018 BAILEE URIBE MD Ot I87.331 CHRONIC VENOUS HTN W ULCER [...] L98.491 NON-PRS CHRONIC ULCER SKIN/ SITES LIMITE 06/01/2018 UVALDO FAJARDO MD Ot D64.9 ANEMIA, UNSPECIFIED 06/01/2018 UVALDO FAJARDO MD Ot E03.9 HYPOTHYROIDISM, UNSPECIFIED 06/01/2018 UVALDO FAJARDO MD Ot E78.00 PURE HYPERCHOLESTEROLEMIA, UNSPECIFIED 06/01/2018 UVALDO FAJARDO MD Ot F32.9 MAJOR DEPRESSIVE DISORDER, SINGLE EPISOD 06/01/2018 UVALDO FAJARDO MD Ot G47.30 SLEEP APNEA, UNSPECIFIED 06/01/2018 UVALDO FAJARDO MD Ot M25.521 PAIN IN RIGHT ELBOW 06/01/2018 UVALDO FAJARDO MD Ot M25.551 PAIN IN RIGHT HIP 06/01/2018 UVALDO FAJARDO MD Ot R05 COUGH 06/01/2018 UVALDO FAJARDO MD Ot W01.0XXA FALL SAME LEV FROM SLIP/TRIP W/O STRIKE 06/01/2018 UVALDO FAJARDO MD Ot Z85.3 PERSONAL HISTORY OF MALIGNANT NEOPLASM O 06/01/2018 UVALDO FAJARDO MD Ot Z85.828 PERSONAL HISTORY OF OTHER MALIGNANT NEOP 06/01/2018 UVALDO FAJARDO MD Ot Z86.010 PERSONAL HISTORY OF COLONIC POLYPS 06/01/2018 UVALDO FAJARDO MD Ot Z87.19 PERSONAL HISTORY OF OTHER DISEASES OF TH 06/01/2018 UVALDO FAJARDO MD Ot Z87.891 PERSONAL HISTORY OF NICOTINE DEPENDENCE 06/01/2018 UVALDO FAJARDO MD Ot Z88.2 ALLERGY STATUS TO SULFONAMIDES STATUS 06/01/2018 UVALDO FAJARDO MD Ot Z90.12 ACQUIRED ABSENCE OF LEFT BREAST AND NIPP 06/01/2018 UVALDO FAJARDO MD Ot Z98.1 ARTHRODESIS STATUS 06/03/2018 UVALDO FAJARDO MD Ot D64.9 ANEMIA, UNSPECIFIED 06/03/2018 UVALDO FAJARDO MD Ot E03.9 HYPOTHYROIDISM, UNSPECIFIED 06/03/2018 UVALDO FAJARDO MD Ot E78.00 PURE HYPERCHOLESTEROLEMIA, UNSPECIFIED 06/03/2018 UVALDO FAJARDO MD Ot F32.9 MAJOR DEPRESSIVE DISORDER, SINGLE EPISOD 06/03/2018 UVALDO FAJARDO MD Ot G47.30 SLEEP APNEA, UNSPECIFIED 06/03/2018 UVALDO [...] OF OTHER MALIGNANT NEOP 06/03/2018 UVALDO FAJARDO MD Ot Z86.010 PERSONAL HISTORY OF COLONIC POLYPS 06/03/2018 UVALDO FAJARDO MD Ot Z87.19 PERSONAL HISTORY OF OTHER DISEASES OF TH 06/03/2018 UVALDO FAJARDO MD Ot Z87.891 PERSONAL HISTORY OF NICOTINE DEPENDENCE 06/03/2018 SCOTTY ORTEGA, UVALDO Back Ot Z88.2 ALLERGY STATUS TO SULFONAMIDES STATUS 06/03/2018 UVALDO FAJARDO MD, Ot Z90.12 ACQUIRED ABSENCE OF LEFT BREAST AND NIPP 06/03/2018 UVALDO FAJARDO MD, Ot Z98.1 ARTHRODESIS STATUS 06/04/2018 BAILEE URIBE MD Ot I87.331 CHRONIC VENOUS HTN W ULCER [...] ULCER OF RIGHT CALF 06/10/2018 BAILEE URIBE MD Ot 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 06/18/2018 CHRISTOPHER WALKER MD Ot E03.9 HYPOTHYROIDISM, UNSPECIFIED 06/18/2018 CHRISTOPHER WALKER MD Ot E78.00 PURE HYPERCHOLESTEROLEMIA, UNSPECIFIED 06/18/2018 CHRISTOPHER WALKER MD Ot F32.9 MAJOR DEPRESSIVE DISORDER, SINGLE EPISOD 06/18/2018 CHRISTOPHER WALKER MD Ot G47.30 SLEEP APNEA, UNSPECIFIED 06/18/2018 CHRISTOPHER WALKER MD Ot G89.4 CHRONIC PAIN SYNDROME 06/18/2018 CHRISTOPHER WALKER MD Ot I10 ESSENTIAL (PRIMARY) HYPERTENSION 06/18/2018 CHRISTOPHER WALKER MD Ot K74.60 UNSPECIFIED CIRRHOSIS OF LIVER 06/18/2018 CHRISTOPHER WALKER MD Ot R53.1 WEAKNESS 06/18/2018 CHRISTOPHER WALKER MD Ot R60.0 LOCALIZED EDEMA 06/18/2018 CHRISTOPHER WALKER MD Ot Z85.3 PERSONAL HISTORY OF MALIGNANT NEOPLASM O 06/18/2018 CHRISTOPHER WALKER MD Ot Z85.828 PERSONAL HISTORY OF OTHER MALIGNANT NEOP 06/18/2018 CHRISTOPHER WALKER MD Ot Z86.010 PERSONAL HISTORY OF COLONIC POLYPS 06/18/2018 CHRISTOPHER WALKER MD Ot Z86.2 PRSNL HISTORY OF DIS OF THE BLD/BLD-FORM 06/18/2018 CHRISTOPHER WALKER MD Ot Z87.891 PERSONAL HISTORY OF NICOTINE DEPENDENCE 06/18/2018 CHRISTOPHER WALKER MD Ot Z91.81 HISTORY OF FALLING 06/18/2018 CHRISTOPHER WALKER MD Ot E03.9 HYPOTHYROIDISM, UNSPECIFIED 06/18/2018 CHRISTOPHER WALKER MD Ot E78.00 PURE HYPERCHOLESTEROLEMIA, UNSPECIFIED 06/18/2018 CHRISTOPHER WALKER MD Ot F32.9 MAJOR DEPRESSIVE DISORDER, SINGLE EPISOD 06/18/2018 CHRISTOPHER WALKER MD Ot G47.30 SLEEP APNEA, UNSPECIFIED 06/18/2018 CHRISTOPHER WALKER MD Ot G89.4 CHRONIC PAIN SYNDROME 06/18/2018 CHRISTOPHER WALKER MD Ot I10 ESSENTIAL (PRIMARY) HYPERTENSION 06/18/2018 CHRISTOPHER WALKER MD Ot K74.60 UNSPECIFIED CIRRHOSIS OF LIVER 06/18/2018 CHRISTOPHER WALKER MD Ot R53.1 WEAKNESS 06/18/2018 CHRISTOPHER WALKER MD Ot R60.0 LOCALIZED EDEMA 06/18/2018 CHRISTOPHER WALKER MD Ot Z85.3 PERSONAL HISTORY OF MALIGNANT NEOPLASM O 06/18/2018 CHRISTOPHER WALKER MD Ot Z85.828 PERSONAL HISTORY OF OTHER MALIGNANT NEOP 06/18/2018 CHRISTOPHER WALKER MD Ot Z86.010 PERSONAL HISTORY OF COLONIC POLYPS 06/18/2018 CHRISTOPHER WALKER MD Ot Z86.2 PRSNL HISTORY OF DIS OF THE BLD/BLD-FORM 06/18/2018 CHRISTOPHER WALKER MD Ot Z87.891 PERSONAL HISTORY OF NICOTINE DEPENDENCE 06/18/2018 CHRISTOPHER WALKER MD Ot Z91.81 HISTORY OF FALLING 06/24/2018 BAILEE URIBE MD Ot 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 06/24/2018 BAILEE URIBE MD Ot I89.0 LYMPHEDEMA, NOT ELSEWHERE CLASSIFIED 06/24/2018 BAILEE URIBE MD Ot L22 DIAPER DERMATITIS 06/24/2018 BAILEE URIBE MD Ot 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 06/24/2018 BAILEE URIBE MD Ot L98.491 NON-PRS CHRONIC ULCER SKIN/ SITES LIMITE 07/06/2018 JOHN MENDOZA MD Ot I87.333 CHRONIC VENOUS HTN W ULCER AND INFLAM OF 07/06/2018 JOHN MENDOZA MD Ot I89.0 LYMPHEDEMA, NOT ELSEWHERE CLASSIFIED 07/06/2018 JOHN MENDOZA MD Ot L97.212 NON-PRESSURE CHRONIC ULCER OF RIGHT CALF 07/13/2018 JOHN MENDOZA MD Ot I87.333 CHRONIC VENOUS HTN W ULCER AND INFLAM OF 07/13/2018 JOHN MENDOZA MD Ot I89.0 LYMPHEDEMA, NOT ELSEWHERE CLASSIFIED 07/13/2018 JOHN MENDOZA MD Ot 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 07/13/2018 JOHN MENDOZA MD Ot L97.222 NON-PRESSURE CHRONIC ULCER OF LEFT CALF 07/26/2018 DENISE ORTEGA, CHRISTOPHER Ocasio Ot R18.8 OTHER ASCITES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
[2018-11-23 16:42] VITALS: BP 100/54
== END 2018-11-23 16:57 | disposition home or self-care (01) ==
LOC: EDUNIT# 14:33 → ER 14:34
DX: T78.40XA Allergy, unspecified, initial encounter (principal); R22.0 Localized swelling, mass and lump, head; G47.30 Sleep apnea, unspecified; E78.00 Pure hypercholesterolemia, unspecified; E03.9 Hypothyroidism, unspecified; F32.9 Major depressive disorder, single episode, unspecified; D64.9 Anemia, unspecified; Z85.828 Personal history of other malignant neoplasm of skin; Z80.3 Family history of malignant neoplasm of breast; Z82.49 Family history of ischemic heart disease and other diseases of the circulatory system; Z98.1 Arthrodesis status; Z87.19 Personal history of other diseases of the digestive system; Z86.010 Personal history of colon polyps; Z90.12 Acquired absence of left breast and nipple; Z88.2 Allergy status to sulfonamides; Z87.891 Personal history of nicotine dependence
CPT/HCPCS: 99283

== ENCOUNTER → 2019-02-04 | Outpatient (CLI) | payer MEDICARE ==
[~2019-02-04] MED LIST changes: +LORA10TA7 PO; +PRD20T PO
== END ==
LOC: LAB 19:05
PROVIDERS: ATTEND Family Medicine
DX: R82.998 Other abnormal findings in urine (principal)
CPT/HCPCS: 87088